=== PATIENT | male | born 1955 | race Caucasian/White ===

== ENCOUNTER 2023-07-01 14:56 | Emergency (ER) | payer OTHER, SELFPAY ==
[2023-07-01] VITALS (12 sets, daily range): BP systolic 139–167; BP diastolic 77–101; PULSE 88–100; RESP 17–18; TEMP 37.6; O2SAT 93–98
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
== END 2023-07-01 16:14 | disposition home or self-care (01) ==
PROVIDERS: Emergency Provider Emergency Medicine
DX: Z04.1 Encounter for examination and observation following transport accident (principal); I11.0 Hypertensive heart disease with heart failure; I50.9 Heart failure, unspecified; Z79.01 Long term (current) use of anticoagulants; I48.91 Unspecified atrial fibrillation; V43.52XA Car driver injured in collision with other type car in traffic accident, initial encounter; Y92.410 Unspecified street and highway as the place of occurrence of the external cause
CPT/HCPCS: 99282

== ENCOUNTER 2023-07-26 13:37 | Outpatient (CLI) | payer MEDICARE, SELFPAY ==
[2023-07-26 14:18] LABS: SARS-CoV-2 Ag Positive (Negative)
== END 2023-07-26 13:38 | disposition home or self-care (01) ==
LOC: CHSLAB 13:42
PROVIDERS: PCP Family Medicine
DX: U07.1 COVID-19 (principal)
CPT/HCPCS: 87426; C9803

== ENCOUNTER 2024-10-21 22:45 | Emergency (ER) | payer MEDICARE, SELFPAY ==
--- NOTE | ~2024-10-21 | CT_ITS ---
CT Scan of the Chest without Contrast: Clinical Indication: Status post fall Technique: Contiguous sections were acquired throughout the chest without intravenous contrast. Dose reduction technique was used on this scan by utilizing automated exposure control and iterative recon struction technique. The dose-length product (DLP) was 570.19 mGy-cm. Findings: There is no evidence of any significant mediastinal, hilar or axillary lymphadenopathy. Extensive cor onary artery calcifications are present. Heart is mildly enlarged. There is no evidence of pleural or pericardial effusion. There is probable left lower lobe atelectasis, less likely pneumonia. There is mild atelectasis at th e lingula and inferior right middle lobe. There is linear scarring at the right lung base. No suspici ous pulmonary nodule evident. Images through the upper abdomen reveal no abnormalities. No acute fracture seen. Chronic bilateral r ib fracture deformities are noted. Questionable scattered small lytic foci within the osseous structu res. Impression: No acute posttraumatic abnormality seen. Probable bibasilar atelectasis, as detailed above. Correlate for pneumonia at the left lower lobe, wh ich is felt to be less likely. Questionable small lytic foci in the osseous structures. Correlate for myeloma or metastatic disease versus normal variation in bone mineralization/osteoporotic change. Reviewed, dictated and finalized at location M. TIC CNC MACHINE OPERATOR Impression: No acute posttraumatic abnormality seen. Probable bibasilar atelectasis, as detailed above. Correlate for pneumonia at t he left lower lobe, which is felt to be less likely. Questionable small lytic foci in the osseous structures. Correlate for myeloma or metastatic disease versus normal variation in bone mineralization/osteoporot ic change.
--- NOTE | ~2024-10-21 | CT_ITS ---
Non-contrast Head CT History: Head injury Technique: Axial non-contrast imaging of the brain was performed. Dose reduction technique was used on this scan by utilizing automated exposure control and iterative reconstruction technique. The dose -length product (DLP) was 681.00 mGy-cm. Findings: There is no evidence of intracranial hemorrhage, mass lesion, or acute infarct. Brain par enchyma appears normal. The ventricles and subarachnoid spaces are normal in size. The calvarium ap pears normal. Right maxillary sinus disease present. The remaining visualized paranasal sinuses and m astoid air cells are clear. Impression: No intracranial abnormality seen. Reviewed, dictated and finalized at location M. MENT SETTER Impression: No intracranial abnormality seen.
--- NOTE | ~2024-10-21 | CT_ITS ---
Noncontrast CT scan of the cervical spine Technique: Multiple contiguous axial [address] images of the cervical spine were obtained and rec onstructed in 2D sagittal and coronal planes on the acquisition scanner. Dose reduction technique was used on this scan by utilizing automated exposure control, adjustment of the mA and/or kV according to patient size. The dose-length product (DLP) was 596.26 mGy-cm. Clinical History: Pain Findings: No fracture or subluxation seen in the cervical spine. Probable mild chronic compression de formity of T4 noted. There are mild degenerative disc changes throughout the cervical spine. Probable mild bilateral neural foraminal narrowing at C3-C4 with central disc bulge. There is right neural fo raminal narrowing at C4-C5 with probable right facet arthropathy. The intervertebral disc spaces are preserved. No prevertebral soft tissue swelling. Impression: No fracture or subluxation of the cervical spine. Degenerative change, as above. Probable chronic mild compression deformity of T4. Reviewed, dictated and finalized at [facility]. PRESS OPERATOR Impression: No fracture or subluxation of the cervical spine. Degenerative change, as above. Probable chronic mild compression deformity of T4.
[2024-10-21 22:45] VITALS: BP 125/94; PULSE 94; RESP 16; TEMP 36.8; O2SAT 98
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
--- NOTE | 2024-10-21 23:12 | PC.NURSE ---
PATIENT BEING TRANSPORTED TO RADIOLOGY VIA WHEEL CHAIR
[2024-10-21] MEDS: HYDROcodone/acetaminophen (*CRX) 10-325 MG TABLET 1 TAB PO (23:30)
--- NOTE | 2024-10-21 23:32 | PC.NURSE ---
RETURNED TO ROOM. MEDICATED FOR PAIN. WARM BLANKETS GIVEN. CALL LIGHT IN REACH
[2024-10-22 00:26] VITALS: BP 135/65; PULSE 78; RESP 18; O2SAT 94
== END 2024-10-22 00:30 | disposition home or self-care (01) ==
PROVIDERS: Emergency Provider Emergency Medicine; PCP Family Medicine
DX: S20.219A Contusion of unspecified front wall of thorax, initial encounter (principal); M89.58 Osteolysis, other site; S09.90XA Unspecified injury of head, initial encounter; W01.0XXA Fall on same level from slipping, tripping and stumbling without subsequent striking against object, initial encounter
CPT/HCPCS: 70450; 71250; 72125; 99284; A9270

== ENCOUNTER 2024-10-23 15:24 | Inpatient (IN) | payer MEDICARE, SELFPAY ==
[2024-10-23] VITALS (8 sets, daily range): BP systolic 142–161; BP diastolic 89–96; PULSE 86–103; RESP 18–31; TEMP 36.6; O2SAT 94–97; BMI 25.7
--- NOTE | ~2024-10-23 | CT_ITS ---
CTA chest PE protocol Ordering provider: Rupesh Forrester MD History: 69 years Male with . elev dimer/sob . Comparison: October 21, 2024 Technique: CT angiogram chest was performed following timed intravenous injection of contrast. Thin s lice axial images and reformatted coronal images were obtained. Three dimensional reformatted images of the chest were also obtained using a [employer] workstation. . Automated exposure control and iterati ve reconstruction technique were employed. The dose-length product was 425.71 mGy-cm.. 100 ML Omnipa que 350 was given IV. Findings: PULMONARY ARTERIES: No pulmonary embolus. VISUALIZED THORACIC INLET: Normal. MEDIASTINUM: Aorta/coronary arteries: Mild atheromatous disease. Ascending aorta measures 4.7 cm. Heart/other: The heart is slightly enlarged. Lymph nodes: . Paratracheal lymph nodes are seen with the largest measures 1.5 cm. Avascular small ly mph nodes are also noted. LUNGS: Left basilar atelectasis versus pneumonia with minimal effusion. No pulmonary nodules or masses. . No pneumothorax. VISUALIZED UPPER ABDOMEN: the visualized upper abdomen is normal. MUSCULOSKELETAL: Soft tissues: The superficial soft tissues are normal. Bones: Age appropriate degenerative changes of the spine. Healing fracture is seen in the right 6th , 7th, 8th, ninth, and 10th ribs. Kyphosis. Nonunited segments of the body of the sternum . The fracture is marked excluded. IMPRESSION: 1. No pulmonary embolism. 2. Left basilar atelectasis versus pneumonia. 3. Ascending aorta measures 4.7 cm. Follow-up advised. 4. Minimal left pleural effusion. 5. Cardiomegaly. Reviewed, dictated and finalized at location A. KER POLISHING
--- NOTE | ~2024-10-23 | XR_ITS ---
XR chest 1V portable Ordering provider: Rupesh Forrester MD History: 69 years Male with . Fall X 3 days, RT low rib pain, brown phlegm, diff breathin . Comparison: None. FINDINGS: MEDIASTINUM: The cardiac silhouette is moderately enlarged. Congestive cici. LUNGS: No effusions or pneumothorax. Opacification in the left lower lobe suggestive of atelectasis v ersus pneumonia. OTHER: No free air under the diaphragm. Multiple healing fractures in the right mid thorax ribs. IMPRESSION: Left lower lobe atelectasis versus pneumonia. Multiple rib fractures in the right mid thorax. Reviewed, dictated and finalized at location A. TING INSTRUCTOR
--- NOTE | 2024-10-23 15:35 | ED_ITS ---
HPI - Weakness General Chief complaint: Weakness Stated complaint: short of breath and fall Time Seen by Provider: 10/23/24 15:35 Source: patient Mode of arrival: ambulatory Limitations: no limitations History of Present Illness HPI Narrative: Patient is a 69-year-old male with known alcoholism here for shortness of breath and and a recent fall with right rib pain. I saw this patient a few nights ago after the fall and we did x-ray series that was negative. He said he is coughing up some brown discolored phlegm. patient claims 3 days of no alcohol intake. MD Complaint: generalized weakness ( And specifically shortness of breath) Onset (ago): day(s) (3) Duration: constant Location: generalized Migration: none Severity: moderate Severity scale (1-10): 5 Quality: sharp ( right ribs) Relieving factors: none Exacerbating factors: none Context: other ( Patient has constant tremors as a baseline per his history) Associated symptoms: loss of appetite and shortness of breath Related Data Home Medications Medication Instructions Recorded Confirmed atorvastatin 80 mg tablet 80 mg PO DAILY 07/01/23 07/01/23 duloxetine 30 mg capsule,delayed 30 mg PO DAILY 07/01/23 07/01/23 release ezetimibe 10 mg tablet 10 mg PO DAILY 07/01/23 07/01/23 fenofibric acid (choline) 45 mg 45 mg PO DAILY 07/01/23 07/01/23 capsule,delayed release furosemide 20 mg tablet 20 mg PO DAILY 07/01/23 07/01/23 nifedipine 30 mg tablet,extended 30 mg PO DAILY 07/01/23 07/01/23 release 24 hr torsemide 10 mg tablet 10 mg PO DAILY 07/01/23 07/01/23 Allergies Allergy/AdvReac Type Severity Reaction Status Date / Time magnesium Allergy Anaphylactic Verified 10/23/24 15:56 Shock Review of Systems Review of Systems: All systems reviewed & are unremarkable except as noted in HPI and below Constitutional: Constitutional: Reports no additional constitutional complaints Eyes: Eyes: Reports no additional eye complaints ENT: Reports system reviewed and no additional complaints, except as documented Cardiovascular: Cardiovascular: Reports no additional cardiovascular complaints Respiratory: Respiratory: Reports no additional respiratory complaints Gastrointestinal: Gastrointestinal: Reports no additional gastrointestinal complaints Genitourinary: Genitourinary: Reports no additional male genitourinary complaints Musculoskeletal: Musculoskeletal: Reports no additional musculoskeletal complaints Integumentary/Breasts: Skin/Breast: Reports system reviewed and no additional complaints, except as docu Neurologic: Reports system reviewed and no additional complaints, except as documented Psychiatric: Psychiatric: Reports no additional psychiatric complaints Endocrine: Endocrine: Reports no additional endocrine complaints Hematologic/Lymphatic: Hematologic/Lymphatic: Reports no additional hematologic/lymphatic complaints Allergic/Immunologic: Allergic/Immunologic: Reports no additional allergic/immunologic complaints Exam Const: General: healthy appearing Nutritional Appearance: well nourished Orientation/consciousness: patient oriented x3 HENMT: Head: normal to inspection Ears: external ears normal Face/Nose/Sinus: Normal external nose present Eyes: Conjunctivae: conjunctivae normal Pupils: Equal, round and reactive pupils present EOM: EOMs intact bilaterally Neck: Neck: normal visual inspection Chest: Chest palpation & inspection: normal inspection of the chest Resp: Effort & Inspection: normal respiratory effort and not labored Auscultation: clear to auscultation bilaterally and no crackles Cardio: Rate: regular rate Rhythm: regular rhythm Heart sounds: no murmurs GI: Inspection: non-distended GI Palp: Yes Soft to palpation and No Tenderness to palpation present (GI) Auscultation: normal bowel sounds : General: Yes bladder normal to palpation Back/Spine/Pelvis: Back: no CVA tenderness Skin: General skin exam: normal color Rashes: no rashes Wounds: no wounds Neuro: General: patient oriented x3 Cranial nerves: Yes Nystagmus not pre sent Speech: normal speech Gait exam (Neuro): Normal gait present Extrem: General: normal to inspection Psych: Mental Status: mental status grossly normal Affect: normal affect Attitude: cooperative Course Vital Signs Vital signs: Vital Signs Temperature 36.6 C 10/23/24 15:24 Pulse Rate 88 10/23/24 15:24 Respiratory Rate 18 10/23/24 15:24 Blood Pressure 161/96 H 10/23/24 15:24 Pulse Oximetry 97 10/23/24 15:24 Oxygen Delivery Room Air 10/23/24 15:24 Temperature 36.6 C 10/23/24 15:24 Pulse Rate 97 10/23/24 17:30 Respiratory Rate 31 H 10/23/24 17:30 Blood Pressure 148/90 H 10/23/24 17:30 Pulse Oximetry 95 10/23/24 17:30 Oxygen Delivery Room Air 10/23/24 15:25 MDM - Weakness MDM Narrative Medical decision making narrative: patient is a 69-year-old male with shortness of breath. We will do a respiratory workup at this time. He is having generalized malaise and weakness over the past 3 days. patient has history of AFib not on anticoagulation. last alcoholic beverage was 3 days ago. Lab Data Attestation: I reviewed the patient's lab results. 10/23/24 16:09 10/23/24 16:09 Labs: Lab Results 10/23/24 10/23/24 10/23/24 Range/Units 16:09 16:10 19:26 WBC 5.8 (4.8-10.8) K/mm3 RBC 4.05 L (4.70-6.10) M/mm3 Hgb 14.0 (12.4-15.3) g/dL Hct 41.3 (37.0-46.0) % MCV 102.0 (78.0-102.0) fL MCH 34.6 H (27.0-31.0) pg MCHC 33.9 (32-36) g/dL RDW 12.5 (11.6-14.4) % Plt Count 182 (150-420) K/mm3 MPV 9.4 (8.7-11.0) fl Immature Gran % (Auto) 0.5 H (0.0-0.0) % Neut % (Auto) 76.5 H (50.0-70.0) % Lymph % (Auto) 14.1 L (18.0-42.0) % [place] % (Auto) 7.5 (2.0-11.0) % Eos % (Auto) 1.2 (1.0-6.0) % Baso % (Auto) 0.2 (0.0-1.0) % Lymph # (Auto) 0.81 L (1.10-4.50) K/mm3 [place] # (Auto) 0.43 (0.10-0.90) K/mm3 Eos # (Auto) 0.07 (0.02-0.50) K/mm3 Baso # (Auto) 0.01 (0.00-0.10) K/mm3 Abs Immat Gran (auto) 0.03 H (0.00-0.00) K/mm3 Absolute Neuts (auto) 4.40 (1.70-7.20) K/mm3 Absolute Nucleated RBC 0.00 (0.00-0.00) K/mm3 Nucleated RBC % 0.0 (0-0.0) % D-Dimer 0.95 H* (0.19-0.50) mg/L Sodium 139 (136-145) mmol/L Potassium 5.1 (3.5-5.1) mmol/L Chloride 104 (98-108) mmol/L Carbon Dioxide 27 (21-32) mmol/L Anion Gap 8 (4-12) mmol/L BUN 34 H (7-18) mg/dL Creatinine 1.95 H (0.70-1.30) mg/dL Estim Creat Clear Calc 34 ml/min Estimated GFR 34 L (59 - ) Glucose 114 H (70-99) mg/dL Calculated Osmolality 296 H (285-295) mOsm/kg Lactic Acid 2.4 H Pending (0.4-2.0) mmol/L Calcium 9.4 (8.5-10.1) mg/dL Total Bilirubin 1.0 (0.00-1.00) mg/dL AST 23 (15-37) U/L ALT 17 (16-63) U/L Alkaline Phosphatase 58 (46-116) U/L Troponin I 39.5 (0.00-60.4) ng/L Total Protein 7.5 (6.4-8.2) g/dL Albumin 3.1 L (3.4-5.0) g/dL Urine Color (Yellow) Urine Appearance (Clear) Urine pH (5.0-8.0) Ur Specific [place] (1.010-1.020) Urine Protein (Negative) Urine Glucose (UA) (Negative) Urine Ketones (Negative) Ur Blood (Man) (Negative) Urine Nitrate (Negative) Urine Bilirubin (Negative) Urine Urobilinogen (0.2-1.0) mg/dL Leukocyte Esterase Rfl (Negative) THANH/UL Urine RBC (0-2) /hpf Urine WBC (0-3) /hpf Urine Bacteria (None) /hpf 10/23/24 Range/Units 19:29 WBC (4.8-10.8) K/mm3 RBC (4.70-6.10) M/mm3 Hgb (12.4-15.3) g/dL Hct (37.0-46.0) % MCV (78.0-102.0) fL MCH (27.0-31.0) pg MCHC (32-36) g/dL RDW (11.6-14.4) % Plt Count (150-420) K/mm3 MPV (8.7-11.0) fl Immature Gran % (Auto) (0.0-0.0) % Neut % (Auto) (50.0-70.0) % Lymph % (Auto) (18.0-42.0) % [place] % (Auto) (2.0-11.0) % Eos % (Auto) (1.0-6.0) % Baso % (Auto) (0.0-1.0) % Lymph # (Auto) (1.10-4.50) K/mm3 [place] # (Auto) (0.10-0.90) K/mm3 Eos # (Auto) (0.02-0.50) K/mm3 Baso # (Auto) (0.00-0.10) K/mm3 Abs Immat Gran (auto) (0.00-0.00) K/mm3 Absolute Neuts (auto) (1.70-7.20) K/mm3 Absolute Nucleated RBC (0.00-0.00) K/mm3 Nucleated RBC % (0-0.0) % D-Dimer (0.19-0.50) mg/L Sodium (136-145) mmol/L Potassium (3.5-5.1) mmol/L Chloride (98-108) mmol/L Carbon Dioxide (21-32) mmol/L Anion Gap (4-12) mmol/L BUN (7-18) mg/dL Creatinine (0.70-1.30) mg/dL Estim Creat Clear Calc ml/min Estimated GFR (59 - ) Glucose (70-99) mg/dL Calculated Osmolality (285-295) mOsm/kg Lactic Acid (0.4-2.0) mmol/L Calcium (8.5-10.1) mg/dL Total Bilirubin (0.00-1.00) mg/dL AST (15-37) U/L ALT (16-63) U/L Alkaline Phosphatase (46-116) U/L Troponin I (0.00-60.4) ng/L Total Protein (6.4-8.2) g/dL Albumin (3.4-5.0) g/dL Urine Color Yellow (Yellow) Urine Appearance Clear (Clear) Urine pH 6.5 (5.0-8.0) Ur Specific [place] 1.010 (1.010-1.020) Urine Protein 3+ H (Negative) Urine Glucose (UA) Negative (Negative) Urine Ketones Negative (Negative) Ur Blood (Man) 1+ H (Negative) Urine Nitrate Negative (Negative) Urine Bilirubin Negative (Negative) Urine Urobilinogen 0.2 (0.2-1.0) mg/dL Leukocyte Esterase Rfl Negative (Negative) THANH/UL Urine RBC 0-2 (0-2) /hpf Urine WBC 0-3 (0-3) /hpf Urine Bacteria Trace (None) /hpf Imaging Data Attestation: I personally reviewed and interpreted this imaging study as fo llows: Radiologist's impression: Chest x-ray shows IMPRESSION: Left lower lobe atelectasis versus pneumonia. Multiple rib fractures in the right mid thorax. CTA of the chest shows IMPRESSION: 1. No pulmonary embolism. 2. Left basilar atelectasis versus pneumonia. 3. Ascending aorta measures 4.7 cm. Follow-up advised. 4. Minimal left pleural effusion. 5. Cardiomegaly. ECG Data EKG #1: Attestation: I personally reviewed and interpreted this ECG as follows: ECG completion date: 10/23/24 ECG completion time: 17:25 EKG Interpretation: normal rate, tachycardia, atrial fibrillation ( Known AFib), no ectopy, non-specific ST changes, normal QRS, normal QT and left axis Discharge Plan Discharge Clinical Impression: Pneumonia, Closed rib fracture, A-fib, Alcoholism, JULIO CESAR (acute kidney injury), Dehydration Patient Disposition: Acute Care Hospital Condition: Stable Prescriptions: No Action nifedipine 30 mg tablet extended release 24hr 30 mg PO DAILY atorvastatin 80 mg tablet 80 mg PO DAILY torsemide 10 mg tablet 10 mg PO DAILY furosemide 20 mg tablet 20 mg PO DAILY ezetimibe 10 mg tablet 10 mg PO DAILY duloxetine 30 mg capsule,delayed release(DR/EC) 30 mg PO DAILY fenofibric acid (choline) 45 mg capsule,delayed release(DR/EC) 45 mg PO DAILY hydrocodone-acetaminophen 10-325 mg tablet 1 tablet PO Q8H PRN (Reason: pain) Qty: 20 0RF Rx Instructions: 1/2-1 tab per dose Follow-up/Referrals: Mireille,Anne Campos MD [Primary Care Provider] - Time of Disposition: 19:42
--- NOTE | 2024-10-23 15:52 | ECG_ITS ---
Test Date: 2024-10-23 16:15:15 Measurements Intervals [place] Rate: 102 P: 0 PA: 0 QRS: -42 QRSD: 97 T: 6 QT: 358 QTc: 466 Interpretive Statements ATRIAL FIBRILLATION WITH RAPID VENTRICULAR RESPONSE VOLTAGE CRITERIA FOR LVH [MEETS CRITERIA IN ONE OF: R(aVL), S(V1), R(V5), R(V5/V6)+S(V1)] INFERIOR MYOCARDIAL INFARCTION , PROBABLY OLD [40+ ms Q WAVE AND/OR ST/T ABNORMALITY IN II/aVF] ANTEROSEPTAL MYOCARDIAL INFARCTION , PROBABLY OLD [40+ ms Q WAVE IN V1-V4] ABNORMAL ECG No previous ECG available for comparison Electronically Signed On 10-24-2024 11:03:29 PROGRAM EVALUATION CONSULTANT by Zeus Pedersen M.D.
[2024-10-23 16:13] LABS: Basophils Absolute Auto 0.01 K/mm3 (0.00-0.10); Basophils Percent Auto 0.2 % (0.0-1.0); Eosinophils Absolute Auto 0.07 K/mm3 (0.02-0.50); Eosinophils Percent Auto 1.2 % (1.0-6.0); Hematocrit 41.3 % (37.0-46.0); Immature Granulocyte Absolute 0.03 K/mm3 (0.00-0.00); Immature Granulocyte Percent A 0.5 % (0.0-0.0); Lymphocytes Absolute Auto 0.81 K/mm3 (1.10-4.50); Lymphocytes Percent Auto 14.1 % (18.0-42.0); Mean Corpuscular HGB Conc 33.9 g/dL (32-36); Mean Corpuscular Hemoglobin 34.6 pg (27.0-31.0); Mean Platelet Volume 9.4 fl (8.7-11.0); Monocytes Absolute Auto 0.43 K/mm3 (0.10-0.90); Monocytes Percent Auto 7.5 % (2.0-11.0); Neutrophils Percent Auto 76.5 % (50.0-70.0); Platelet Count Result 182 K/mm3 (150-420); Red Blood Count 4.05 M/mm3 (4.70-6.10); Red Cell Distribution Width 12.5 % (11.6-14.4); White Blood Count 5.8 K/mm3 (4.8-10.8)
[2024-10-23 16:29] LABS: D Dimer 0.95 mg/L (0.19-0.50)
[2024-10-23 16:33] LABS: Alanine Aminotransferase 17 U/L (16-63); Albumin Level 3.1 g/dL (3.4-5.0); Alkaline Phosphatase 58 U/L (46-116); Anion Gap 8 mmol/L (4-12); Aspartate Amino Transferase 23 U/L (15-37); Blood Urea Nitrogen 34 mg/dL (7-18); Calcium 9.4 mg/dL (8.5-10.1); Carbon Dioxide 27 mmol/L (21-32); Chloride 104 mmol/L (98-108); Estimated CRCL calculation 34 ml/min; Estimated Glomerular Filt Rate 34; Glucose 114 mg/dL (70-99); Lactic Acid Reflex 2.4 mmol/L (0.4-2.0); Osmolality Calculated 296 mOsm/kg (285-295); Potassium 5.1 mmol/L (3.5-5.1); Sodium 139 mmol/L (136-145); Total Protein 7.5 g/dL (6.4-8.2); Troponin I 39.5 ng/L (0.00-60.4)
--- NOTE | 2024-10-23 17:03 | PC.NURSE ---
PT IS IN CT AT THIS TIME. WILL CONTINUE TO MONITOR.
[2024-10-23] MEDS: SODIUM CHLORIDE 0.9% IV 1,000 ML 999 ML IV CONT (17:13)
[2024-10-23] MEDS: levoFLOXacin 750 MG/D5W 150 ML 750 MG/150 ML BAG 100 MG IVPB (17:14)
--- NOTE | 2024-10-23 17:35 | PC.NURSE ---
pt is lying on stretcher, lights are off. pt denies any needs or complaints. pt is waiting for results at this time. will continue to monitor. nad noted.
[2024-10-23 19:12] LABS: Reflex Lactic Acid Yes or No Add Lactic
[2024-10-23 19:32] LABS: Add Urine Microscopic? YES; Appearance Urine Clear (Clear); Bilirubin Urine Negative (Negative); Blood Urine 1+ (Negative); Color Urine Yellow (Yellow); Glucose Urine UA Negative (Negative); Ketones Urine Negative (Negative); Leukocyte Esterase Ur Negative LEU/UL (Negative); Nitrate Urine Negative (Negative); Protein Urine 3+ (Negative); Urobilinogen Urine 0.2 mg/dL (0.2-1.0); pH Urine 6.5 (5.0-8.0)
[2024-10-23 19:36] LABS: Bacteria Urine Trace /hpf; RBC Urine 0-2 /hpf (0-2); WBC Urine 0-3 /hpf (0-3)
[2024-10-23 19:51] LABS: Lactic Acid 1.1 mmol/L (0.4-2.0)
[2024-10-23] MEDS: MORPHINE SULFATE (*CRX) 4 MG/ML INJ IV PUSH (20:24)
--- NOTE | 2024-10-23 20:55 | PC.NURSE ---
ERP aware of Pt's vital signs. No new orders.
[2024-10-23] MEDS: SODIUM CHLORIDE 0.9% IV 1,000 ML 100 ML IV CONT (21:34)
--- NOTE | 2024-10-23 21:44 | ADMGEN ---
This patient, Claudio Devries, was admitted to 2nd Floor Room 226-2. Patient oriented to hospital policies and general routines including ID bracelet, bed and alarms, visiting hours, pain management, procedures, bathroom and other care routines, personal items, smoking policy, room service/diet, and visiting hours. Information on how to activate the Rapid Response Team has been discussed. Patient encouraged to report perceived risks to care and to ask questions if they do not understand what they are told or what they should do.
[2024-10-23] MEDS: HYDROcodone/acetaminophen (*CRX) 5-325 MG TABLET 1 TAB PO (22:03)
[2024-10-24] VITALS (9 sets, daily range): BP systolic 140–163; BP diastolic 82–90; PULSE 89–124; RESP 16–20; TEMP 36.2–36.7; O2SAT 89–95
[2024-10-24] MEDS: HYDROcodone/acetaminophen (*CRX) 5-325 MG TABLET 1 TAB PO (03:21)
[2024-10-24 05:37] LABS: Basophils Absolute Auto 0.01 K/mm3 (0.00-0.10); Basophils Percent Auto 0.2 % (0.0-1.0); Eosinophils Absolute Auto 0.12 K/mm3 (0.02-0.50); Eosinophils Percent Auto 2.3 % (1.0-6.0); Hemoglobin 12.5 g/dL (12.4-15.3); Immature Granulocyte Absolute 0.02 K/mm3 (0.00-0.00); Immature Granulocyte Percent A 0.4 % (0.0-0.0); Lymphocytes Absolute Auto 1.06 K/mm3 (1.10-4.50); Lymphocytes Percent Auto 19.9 % (18.0-42.0); Mean Corpuscular HGB Conc 32.9 g/dL (32-36); Mean Corpuscular Hemoglobin 33.6 pg (27.0-31.0); Mean Corpuscular Volume 102.2 fL (78.0-102.0); Monocytes Absolute Auto 0.53 K/mm3 (0.10-0.90); Neutrophils Absolute Auto 3.58 K/mm3 (1.70-7.20); Neutrophils Percent Auto 67.2 % (50.0-70.0); Platelet Count Result 169 K/mm3 (150-420); Red Blood Count 3.72 M/mm3 (4.70-6.10); Red Cell Distribution Width 12.5 % (11.6-14.4); White Blood Count 5.3 K/mm3 (4.8-10.8)
[2024-10-24 06:01] LABS: Alanine Aminotransferase 17 U/L (16-63); Albumin Level 2.6 g/dL (3.4-5.0); Alkaline Phosphatase 55 U/L (46-116); Anion Gap 12 mmol/L (4-12); Aspartate Amino Transferase 22 U/L (15-37); Bilirubin,Total 0.8 mg/dL (0.00-1.00); Blood Urea Nitrogen 26 mg/dL (7-18); Calcium 8.6 mg/dL (8.5-10.1); Carbon Dioxide 22 mmol/L (21-32); Chloride 106 mmol/L (98-108); Estimated CRCL calculation 40 ml/min; Estimated Glomerular Filt Rate 42; Glucose 101 mg/dL (70-99); Osmolality Calculated 294 mOsm/kg (285-295); Potassium 4.2 mmol/L (3.5-5.1); Sodium 140 mmol/L (136-145); Total Protein 6.6 g/dL (6.4-8.2)
[2024-10-24 06:11] LABS: Lactic Acid Reflex 1.1 mmol/L (0.4-2.0)
[2024-10-24] MEDS: ONDANSETRON INJ 4 MG/2 ML VIAL IV PUSH (06:33)
[2024-10-24] MEDS: SODIUM CHLORIDE 0.9% IV 1,000 ML 100 ML IV CONT (07:33)
[2024-10-24] MEDS: NIFEdipine 30 MG TAB.ER.24 PO (09:07)
[2024-10-24] MEDS: DULoxetine HCL 30 MG CAPSULE.DR PO (09:07)
[2024-10-24] MEDS: EZETIMIBE 10 MG TABLET PO (09:07)
[2024-10-24] MEDS: ENOXAPARIN 40 MG/0.4 ML SYRINGE SUB-Q (09:08)
[2024-10-24] MEDS: ATORVASTATIN 40 MG TABLET 80 MG PO (09:08)
[2024-10-24 09:45] LABS: Magnesium 1.2 mg/dL (1.8-2.4)
[2024-10-24] MEDS: THIAMINE HCL 100 MG TABLET PO (10:13)
[2024-10-24] MEDS: METOPROLOL TARTRATE 25 MG TABLET PO ×2 (10:13→21:06)
[2024-10-24] MEDS: MULTIVITAMINS THERAPEUTIC TAB (*BKC) 1 TABLET PO (10:13)
[2024-10-24] MEDS: TORSEMIDE 10 MG TABLET PO (10:13)
[2024-10-24] MEDS: chlordiazePOXIDE (*CRX) 25 MG CAPSULE 50 MG PO ×2 (10:13→16:25)
[2024-10-24] MEDS: FOLIC ACID 1 MG TABLET PO (10:13)
[2024-10-24] MEDS: LORazepam INJ (*CRX) 2 MG/ML VIAL IV PUSH (10:14)
[2024-10-24] MEDS: AZITHROMYCIN 500 MG/NS 250 ML 500 MG/250 ML BAG 250 MG IVPB (10:26)
--- NOTE | 2024-10-24 10:30 | PC.NURSE ---
Patient moved to room 206 for better observation. Patient experiencing withdrawal symptoms, confused, disoriented, climbing out of bed.
--- NOTE | 2024-10-24 12:47 | P.HP_ITS ---
H&P: HPI History of Present Illness Date/Time: 10/24/24 12:47 Chief Complaint: SOB/Fall/Generalized weakness Narrative: Patient is a 69-year-old male who presented to the emergency department with complaints of shortness breath, fall at home and generalized weakness. Patient had recently been seen in the emergency department a few days ago for previous fall with rib fractures presents today for secondary fall and complaints worsening shortness of breath. Patient's labs unremarkable and oxygen saturation stable however patient was in AFib with RVR in the 120s initially. Patient did report a past medical history of HLD, [place] with 2 stents, atrial fibrillation,hypertension, and alcoholism. a CTA was done to rule out pulmonary embolism which was negative however did show left basilar atelectasis versus pneumonia, minimal left pleural effusion, cardiomegaly, and a 4.7 cm ascending aorta. patient was admitted to the medical unit for further evaluation and treatment pneumonia and pain control for rib fractures. upon assessment patient had noticeable tremors as well as diaphoresis and was tachycardic in the 120s, speaking with patient and his ex- patient has a history of alcoholism had reported his last drink was 3 days ago however patient is a daily drinker with multiple falls at home per ex- who states she is very concerned for his safety. patient reports he is on Eliquis for his atrial fibrillation did educate him on the concerns for frequent fall and increased risk for GI bleed due to his alcoholism. patient was also becoming more agitated withdrawal protocol was started. patient did have atypical chest pain area broken ribs and difficulty inspiration denied fever, chills, nausea or vomiting. Review of Systems Review of Systems: All systems reviewed & are unremarkable except as noted in HPI and below [facility] Past Medical History Medical History (Updated 10/24/24 @ 13:05 by Maria Del Rosario Yuen APRN) A-fib Alcoholism Ascending aorta dilatation CAD (coronary artery disease) Closed rib fracture Hyperlipidemia Hypertension Myocardial infarction Social History Social History Smoking status: Never smoker Second hand tobacco smoke exposure: No Alcohol intake: current Drinks per week: 2 Substance use: never Substance use type: does not use Do You Feel Safe in your Home?: Yes Lack of Transportation: No Lack of Food: Never True Current Housing: I Have Housing Concerned About Future Housing: No Difficulty Paying Gas/Electric Bills: No Difficulty Paying for Meds: No Currently Unemployed: No Education: High School Diploma/GED Difficulty w/ Childcare or Family Care: No Spiritual care concerns: No Meds Home Medications and Allergies Home Medications Medication Instructions Recorded Confirmed Type atorvastatin 80 mg tablet 80 mg PO DAILY 07/01/23 10/23/24 History duloxetine 30 mg capsule,delayed 30 mg PO DAILY 07/01/23 10/23/24 History release ezetimibe 10 mg tablet 10 mg PO DAILY 07/01/23 10/23/24 History fenofibric acid (choline) 45 mg 45 mg PO DAILY 07/01/23 10/23/24 History capsule,delayed release nifedipine 30 mg tablet,extended 30 mg PO DAILY 07/01/23 10/23/24 History release 24 hr torsemide 10 mg tablet 10 mg PO DAILY 07/01/23 10/23/24 History hydrocodone 10 mg-acetaminophen 1 tablet PO Q8H PRN pain #20 tabs 10/22/24 10/23/24 Rx 325 mg tablet Allergies Allergy/AdvReac Type Severity Reaction Status Date / Time magnesium Allergy Anaphylactic Verified 10/23/24 15:56 Shock Vital Signs Vital Signs - 24 hr 10/23/24 15:24 10/23/24 15:25 10/23/24 16:15 Temperature 97.8 F Pulse Rate 88 92 Pulse Rate [Monitor] Respiratory Rate 18 24 H Blood Pressure 161/96 H 142/90 H Pulse Oximetry 97 96 Oxygen Delivery Room Air Room Air 10/23/24 17:05 10/23/24 17:30 10/23/24 18:45 Temperature Pulse Rate 86 97 98 Pulse Rate [Monitor] Respiratory Rate 22 H 31 H 20 Blood Pressure 150/92 H 148/90 H 144/89 H Pulse Oximetry 95 94 Oxygen Delivery 10/23/24 18:46 10/23/24 20:33 10/23/24 22:05 Temperature Pulse Rate 100 103 H 103 H Pulse Rate [Monitor] Respiratory Rate 20 21 H 20 Blood Pressure Pulse Oximetry 94 94 94 Oxygen Delivery Room Air 10/24/24 00:00 10/24/24 00:00 10/24/24 04:00 Temperature 97.1 F L Pulse Rate 101 H 101 H 102 H Pulse Rate [Monitor] Respiratory Rate 20 Blood Pressure 142/90 H Pulse Oximetry 95 Oxygen Delivery Room Air 10/24/24 04:00 10/24/24 10:13 10/24/24 08:00 Temperature Pulse Rate 102 H 116 H 104 H Pulse Rate [Monitor] Respiratory Rate 18 Blood Pressure Pulse Oximetry 95 Oxygen Delivery Room Air 10/24/24 08:00 10/24/24 09:31 10/24/24 12:00 Temperature 97.1 F L Pulse Rate 104 H Pulse Rate [Monitor] 112 H 95 Respiratory Rate 20 Blood Pressure 163/82 H Pulse Oximetry 92 Oxygen Delivery Room Air Exam Narrative: Physical Exam: * GENERAL: Alert and oriented x 3. Active tremors and diaphoresis * EYES: PERRLA. * HEENT: Dry mucous membranes. * LUNGS: diminished bilateral lower lobe on auscultation pain with inspiration/expiration * CARDIOVASCULAR: irregular irregular >110's HR * ABDOMEN: Soft, non tenderness and non-distended. No palpable masses. * EXTREMITIES: No edema. Non-tender * SKIN: No rashes or lesions. Skin warm, dry. diaphoresis * NEUROLOGIC: No focal neurological deficits. CN II-XII grossly intact * PSYCHIATRIC: agitated mood and affect. poor judgement and insight. No visual or auditory hallucinations. No suicidal or homicidal ideation. H&P: Results Labs Labs: Short CBC 10/23/24 10/24/24 Range/Units 16:09 04:55 WBC 5.8 5.3 (4.8-10.8) K/mm3 Hgb 14.0 12.5 (12.4-15.3) g/dL Hct 41.3 38.0 (37.0-46.0) % Plt Count 182 169 (150-420) K/mm3 [facility] 10/23/24 10/24/24 16:09 04:55 Sodium 139 140 Potassium 5.1 4.2 Chloride 104 106 Carbon Dioxide 27 22 BUN 34 H 26 H Creatinine 1.95 H 1.63 H Glucose 114 H 101 H Calcium 9.4 8.6 Cardiac Enzymes 10/23/24 Range/Units 16:09 Troponin I 39.5 (0.00-60.4) ng/L Liver Function 10/23/24 10/24/24 Range/Units 16:09 04:55 Total Bilirubin 1.0 0.8 (0.00-1.00) mg/dL AST 23 22 (15-37) U/L ALT 17 17 (16-63) U/L Alkaline Phosphatase 58 55 (46-116) U/L Albumin 3.1 L 2.6 L (3.4-5.0) g/dL Urine 10/23/24 Range/Units 19:29 Urine Color Yellow (Yellow) Urine Appearance Clear (Clear) Urine pH 6.5 (5.0-8.0) Ur Specific [place] 1.010 (1.010-1.020) Urine Protein 3+ H (Negative) Urine Glucose (UA) Negative (Negative) Imaging CT scan - chest: Radiologist's impression: Findings: PULMONARY ARTERIES: No pulmonary embolus. VISUALIZED THORACIC INLET: Normal. MEDIASTINUM: Aorta/coronary arteries: Mild atheromatous disease. Ascending aorta measures 4.7 cm. Heart/other: The heart is slightly enlarged. Lymph nodes: . Paratracheal lymph nodes are seen with the largest measures 1.5 cm. Avascular small lymph nodes are also noted. LUNGS: Left basilar atelectasis versus pneumonia with minimal effusion. No pulmonary nodules or masses. . No pneumothorax. VISUALIZED UPPER ABDOMEN: the visualized upper abdomen is normal. MUSCULOSKELETAL: Soft tissues: The superficial soft tissues are normal. Bones: Age appropriate degenerative changes of the spine. Healing fracture is seen in the right 6th , 7th, 8th, ninth, and 10th ribs. Kyphosis. Nonunited segments of the body of the sternum . The fracture is marked excluded. IMPRESSION: 1. No pulmonary embolism. 2. Left basilar atelectasis versus pneumonia. 3. Ascending aorta measures 4.7 cm. Follow-up advised. 4. Minimal left pleural effusion. 5. Cardiomegaly. Assessment and Plan Assessment and plan (1) Alcoholism: Code(s): F10.20 - Alcohol dependence, uncomplicated Status: Acute Assessment and Plan: * IV fluids * Last drink 48hrs patient is not very forthcoming ex- provided information of last drink * Thiamine, folic acid, and multi-vitamin * PPI daily * librium 50mg PO Q6hr * Ativan PRN for seizure activity and severe anxiety * CIWA daily * Monitor and replenish electrolytes as needed * Seizure precautions if indicated * would benefit rehab cc to give services available around the area (2) Pneumonia: Qualifiers: Laterality: left Lung location: lower lobe of lung Pneumonia type: due to unspecified organism Qualified Code(s): J18.9 - Pneumonia, unspecified organism Code(s): J18.9 - Pneumonia, unspecified organism Status: Acute Assessment and Plan: * likely secondary to patient's recent rib fractures * Bronchodilators. * CTA reviewed * incentive spirometry while awake. * influenza/COVID/RSV negative * antibiotic therapy azithromycin Rocephin * supplemental oxygen therapy to maintain oxygen 92% * CMP/CBC daily (3) Closed rib fracture: Qualifiers: Encounter type: initial encounter Laterality: right Rib fracture type: multiple ribs Qualified Code(s): S22.41XA - Multiple fractures of ribs, right side, initial encounter for closed fracture Code(s): S22.39XA - Fracture of one rib, unspecified side, initial encounter for closed fracture Status: Acute Assessment and Plan: * new and old rib fractures bilateral * patient with multiple falls per ex- * fall secondary to patient's alcoholism * incentive spirometer * pain control * PT OT for ambulation * pillow brace for cough (4) CAD (coronary artery disease): Code(s): I25.10 - Atherosclerotic heart disease of [place] coronary artery without angina pectoris Status: Acute Assessment and Plan: * patient with [place] x2 stents * resume statin * metoprolol 12.5 added * resumed Eliquis * cardiac monitoring (5) Hyperlipidemia: Code(s): E78.5 - Hyperlipidemia, unspecified Status: Acute Assessment and Plan: * resume patient's atorvastatin (6) Hypertension: Code(s): I10 - Essential (primary) hypertension Status: Acute Assessment and Plan: * hypertensive POA Likely secondary to alcohol withdrawal dehydration * resume patient's nifedipine * added metoprolol * BP monitoring per unit protocol * will increase metoprolol if needed (7) A-fib: Qualifiers: Atrial fibrillation type: unspecified Qualified Code(s): I48.91 - Unspecified atrial fibrillation Code(s): I48.91 - Unspecified atrial fibrillation Status: Acute Assessment and Plan: * HR in 120'5 * started metoprolol * resume patient's Eliquis * cardiac monitoring * and did have a long conversation regarding patient's Eliquis and frequent falls due to risks versus benefits states 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 PT/OT pending for discharge planning patient will need rehab resources prior to discharge. Quality VTE Prophylaxis VTE prophylaxis: pharmacologic ordered -Patient's previous records reviewed on admission -ER notes reviewed in detail on admission -discussed all findings and current treatment plan with patient/Family/POA -Consultations reviewed for recommendations -Patient's disposition for safe discharge discussed with caser shoe parts Dictation performed by [employer] direct speech recognition software, therefore defence intelligence analyst variants and typographical errors may occur. Hospitalist MIPS Advance Care Plan I have confirmed that the patient's Advanced Care Plan is present, code status is documented, or surrogate decision maker is listed in patient medical record.: Yes Medication Reconciliation I have utilized all available resources to obtain, update and review the patients current medications (includes all prescriptions, OTC, herbals, cannabis, and nutritional supplements).: Yes The patient is not eligible for med reconciliation; the patient is in a emergent medical situation where delaying treatment would jeopardize the patients health.: No
--- NOTE | 2024-10-24 15:19 | PHAR ---
verified pt's home med: Fenofibric Acid 45 mg capsule,delayed release(DR/EC) Take one capsule by mouth every day.
--- NOTE | 2024-10-24 18:41 | PC.NURSE ---
Andres Yuen, DISABILITY COUNSELOR/Hospitalist, notified that patient's Mag level is low. New order received for Mag Roberto. When order placed Magnesium allergy alerted. DISABILITY COUNSELOR notified. New order received for Mag Oxide p.o. BID to start tonight. DISABILITY COUNSELOR also notified that patient has not urinated since this a.m. New order received to bladder scan patient and report findings to DISABILITY COUNSELOR.
[2024-10-24] MEDS: MAGNESIUM OXIDE 400 MG TABLET PO (21:06)
[2024-10-25] VITALS (9 sets, daily range): BP systolic 138–158; BP diastolic 71–92; PULSE 17–107; RESP 16–17; TEMP 36.1–36.7; O2SAT 90–95
[2024-10-25] MEDS: traZODone HCL 50 MG TABLET PO (00:54)
[2024-10-25] MEDS: chlordiazePOXIDE (*CRX) 25 MG CAPSULE 50 MG PO ×4 (04:15→20:05)
[2024-10-25 05:26] LABS: Hematocrit 36.3 % (37.0-46.0); Hemoglobin 11.7 g/dL (12.4-15.3); Mean Corpuscular HGB Conc 32.2 g/dL (32-36); Mean Corpuscular Hemoglobin 33.6 pg (27.0-31.0); Mean Corpuscular Volume 104.3 fL (78.0-102.0); Mean Platelet Volume 9.7 fl (8.7-11.0); Platelet Count Result 150 K/mm3 (150-420); Red Blood Count 3.48 M/mm3 (4.70-6.10); Red Cell Distribution Width 12.7 % (11.6-14.4); White Blood Count 4.8 K/mm3 (4.8-10.8)
[2024-10-25 05:43] LABS: Alanine Aminotransferase 19 U/L (16-63); Albumin Level 2.5 g/dL (3.4-5.0); Alkaline Phosphatase 55 U/L (46-116); Anion Gap 9 mmol/L (4-12); Aspartate Amino Transferase 24 U/L (15-37); Bilirubin,Total 0.4 mg/dL (0.00-1.00); Blood Urea Nitrogen 33 mg/dL (7-18); Calcium 8.5 mg/dL (8.5-10.1); Carbon Dioxide 27 mmol/L (21-32); Chloride 107 mmol/L (98-108); Estimated CRCL calculation 35 ml/min; Estimated Glomerular Filt Rate 36; Glucose 123 mg/dL (70-99); Magnesium 1.5 mg/dL (1.8-2.4); Osmolality Calculated 304 mOsm/kg (285-295); Potassium 4.4 mmol/L (3.5-5.1); Sodium 143 mmol/L (136-145); Total Protein 6.1 g/dL (6.4-8.2)
[2024-10-25] MEDS: [UNRECOGNIZED DRUG - OTHER] PO (10:29)
[2024-10-25] MEDS: ENOXAPARIN 40 MG/0.4 ML SYRINGE SUB-Q (10:29)
[2024-10-25] MEDS: FENOFIBRIC ACID 45 MG PO (10:29)
[2024-10-25] MEDS: MULTIVITAMINS THERAPEUTIC TAB (*BKC) 1 TABLET PO (10:30)
[2024-10-25] MEDS: EZETIMIBE 10 MG TABLET PO (10:30)
[2024-10-25] MEDS: TORSEMIDE 10 MG TABLET PO (10:30)
[2024-10-25] MEDS: FOLIC ACID 1 MG TABLET PO (10:30)
[2024-10-25] MEDS: AZITHROMYCIN 250 MG TABLET 500 MG PO (10:30)
[2024-10-25] MEDS: DULoxetine HCL 30 MG CAPSULE.DR PO (10:30)
[2024-10-25] MEDS: ATORVASTATIN 40 MG TABLET 80 MG PO (10:31)
[2024-10-25] MEDS: METOPROLOL TARTRATE 25 MG TABLET PO ×2 (10:31→20:06)
[2024-10-25] MEDS: NIFEdipine 30 MG TAB.ER.24 PO (10:31)
[2024-10-25] MEDS: PANTOPRAZOLE 40 MG TABLET PO (10:31)
[2024-10-25] MEDS: MAGNESIUM OXIDE 400 MG TABLET PO ×2 (10:31→16:20)
[2024-10-25] MEDS: THIAMINE HCL 100 MG TABLET PO (10:31)
--- NOTE | 2024-10-25 11:17 | P.PNIM_ITS ---
Progress Note: A&P Assessment and Plan (1) Alcoholism: Code(s): F10.20 - Alcohol dependence, uncomplicated Status: Acute Assessment and Plan: * IV fluids * Last drink 48hrs patient is not very forthcoming ex- provided information of last drink * Thiamine, folic acid, and multi-vitamin * PPI daily * librium 50mg PO Q6hr * Ativan PRN for seizure activity and severe anxiety * CIWA daily * Monitor and replenish electrolytes as needed * Seizure precautions if indicated * would benefit rehab cc to give services available around the area (2) Pneumonia: Qualifiers: Laterality: left Lung location: lower lobe of lung Pneumonia type: due to unspecified organism Qualified Code(s): J18.9 - Pneumonia, unspecified organism Code(s): J18.9 - Pneumonia, unspecified organism Status: Acute Assessment and Plan: * likely secondary to patient's recent rib fractures * Bronchodilators. * CTA reviewed * incentive spirometry while awake. * influenza/COVID/RSV negative * antibiotic therapy azithromycin Rocephin * supplemental oxygen therapy to maintain oxygen 92% * CMP/CBC daily (3) Closed rib fracture: Qualifiers: Encounter type: initial encounter Laterality: right Rib fracture type: multiple ribs Qualified Code(s): S22.41XA - Multiple fractures of ribs, right side, initial encounter for closed fracture Code(s): S22.39XA - Fracture of one rib, unspecified side, initial encounter for closed fracture Status: Acute Assessment and Plan: * new and old rib fractures bilateral * patient with multiple falls per ex- * fall secondary to patient's alcoholism * incentive spirometer * pain control * PT OT for ambulation * pillow brace for cough (4) CAD (coronary artery disease): Code(s): I25.10 - Atherosclerotic heart disease of [place] coronary artery without angina pectoris Status: Acute Assessment and Plan: * patient with [place] x2 stents * resume statin * metoprolol 12.5 added * resumed Eliquis * cardiac monitoring (5) Hyperlipidemia: Code(s): E78.5 - Hyperlipidemia, unspecified Status: Acute Assessment and Plan: * resume patient's atorvastatin (6) Hypertension: Code(s): I10 - Essential (primary) hypertension Status: Acute Assessment and Plan: * hypertensive POA Likely secondary to alcohol withdrawal dehydration * resume patient's nifedipine * added metoprolol * BP monitoring per unit protocol * will increase metoprolol if needed (7) A-fib: Qualifiers: Atrial fibrillation type: unspecified Qualified Code(s): I48.91 - Unspecified atrial fibrillation Code(s): I48.91 - Unspecified atrial fibrillation Status: Acute Assessment and Plan: * HR in 120'5 * started metoprolol * resume patient's Eliquis * cardiac monitoring * and did have a long conversation regarding patient's Eliquis and frequent falls and alcoholism due to risks versus benefits he lives alone states he will discuss with his senior sales representative (8) Ascending aorta dilatation: Code(s): I77.810 - Thoracic aortic ectasia Status: Acute Assessment and Plan: * CTA showed 4.7 cm ascending aorta * will need follow-up outpatient * keep BP controlled Plan Code status: Full code per patient DVT prophylaxis: Eliquis Stress ulcer prophylaxis: Protonix 40 daily PT/OT notes: PT/OT pending Disposition: patient was admitted to the medical unit for further evaluation pneumonia, alcohol withdrawal, and rib fractures. PT/OT pending for discharge planning patient will need rehab resources prior to discharge. Time Spent With Patient Time with patient: 15 - 25 minutes Subjective Date/time seen: 10/25/24 11:17 Interval history: Patient is a 69 year old male who was admitted with falls, rib fractures, pneumonia, and alcohol withdrawals. 10/25/2024: Patient continues with noticeable tremors, diaphoresis improving but still unsteady gait. Patient with SOB, rib pain, and non-productive cough. Patient denied any N/V and good appetite. Review of Systems Review of Systems: All systems reviewed & are unremarkable except as noted in HPI and below Exam Narrative: Physical Exam: * GENERAL: Alert and oriented x 3. Active tremors and diaphoresis did have mild hallucinations but was redirectable * EYES: PERRLA. * HEENT: moist mucous membranes. * LUNGS: diminished bilateral lower lobe on auscultation pain with inspiration/expiration * CARDIOVASCULAR: irregular irregular >110's HR, lower chest rib pain * ABDOMEN: Soft, nontender and non-distended. No palpable masses. * EXTREMITIES: No edema. Non-tender, unsteady gait * SKIN: No rashes or lesions. Skin warm, dry. diaphoresis * NEUROLOGIC: No focal neurological deficits. CN II-XII grossly intact * PSYCHIATRIC: appropriate mood and affect. poor judgement and insight. Objective Data Vital Signs Vital Signs: Vital Signs - 24 hr 10/24/24 12:00 10/24/24 12:00 10/24/24 12:00 Temperature 97.1 F L Pulse Rate 124 H 124 H Pulse Rate [Monitor] 95 Respiratory Rate 20 Blood Pressure 148/88 H Pulse Oximetry 93 Oxygen Delivery Room Air 10/24/24 16:00 10/24/24 16:00 10/24/24 16:00 Temperature 97.1 F L Pulse Rate 98 92 Pulse Rate [Monitor] 95 Respiratory Rate 16 Blood Pressure 140/85 Pulse Oximetry 95 Oxygen Delivery Room Air 10/24/24 21:06 10/24/24 20:00 10/24/24 20:00 Temperature Pulse Rate 116 H 89 Pulse Rate [Monitor] 89 Respiratory Rate Blood Pressure Pulse Oximetry Oxygen Delivery 10/24/24 20:00 10/25/24 00:00 10/25/24 00:00 Temperature 98.0 F Pulse Rate 94 92 Pulse Rate [Monitor] 92 Respiratory Rate 16 Blood Pressure 146/86 H Pulse Oximetry 89 L Oxygen Delivery Room Air 10/25/24 00:00 10/25/24 04:00 10/25/24 04:00 Temperature 98.0 F Pulse Rate 92 105 H Pulse Rate [Monitor] 105 H Respiratory Rate 16 Blood Pressure 138/92 H Pulse Oximetry 95 Oxygen Delivery Room Air 10/25/24 04:00 10/25/24 08:00 10/25/24 08:00 Temperature 98.0 F 97.1 F L Pulse Rate 105 H 105 H 94 Pulse Rate [Monitor] Respiratory Rate 16 17 Blood Pressure 140/86 154/86 H Pulse Oximetry 95 90 Oxygen Delivery Room Air Room Air 10/25/24 08:00 10/25/24 10:31 Temperature Pulse Rate 105 H Pulse Rate [Monitor] 105 H Respiratory Rate Blood Pressure Pulse Oximetry Oxygen Delivery Intake/Output Intake/Output: Intake & Output 10/22/24 10/23/24 10/24/24 10/25/24 23:59 23:59 23:59 23:59 Intake Total 1150 3370 300 Output Total 450 Balance 1150 2920 300 Meds/Results Medications: Active Medications Generic Name Dose Route Start Last Admin Trade Name Freq PRN Reason Stop Dose Admin Acetaminophen 650 mg 10/23/24 20:00 Acetaminophen 325 Mg Tablet PO Q4H PRN Mild Pain (1-3) or Fever Hydrocodone Bitart/Acetaminophen 1 tab 10/23/24 20:00 10/24/24 03:21 Hydrocodone/Acetaminophen (*Crx) 5-325 Mg Tablet PO 1 tab Q4H PRN Administration Moderate Pain (4-6) Atorvastatin Calcium 80 mg 10/24/24 09:00 10/25/24 10:31 Atorvastatin 40 Mg Tablet PO 80 mg DAILY REBEKAH Administration Azithromycin 500 mg 10/25/24 09:00 10/25/24 10:30 Azithromycin 250 Mg Tablet PO 10/28/24 09:01 500 mg DAILY REBEKAH Administration Chlordiazepoxide HCl 50 mg 10/24/24 09:35 10/25/24 10:30 Chlordiazepoxide (*Crx) 25 Mg Capsule PO 50 mg Q6H REBEKAH Administration Duloxetine HCl 30 mg 10/24/24 09:00 10/25/24 10:30 Duloxetine Hcl 30 Mg Capsule.Dr PO 30 mg DAILY REBEKAH Administration Ezetimibe 10 mg 10/24/24 09:00 10/25/24 10:30 Ezetimibe 10 Mg Tablet PO 10 mg DAILY REBEKAH Administration Enoxaparin Sodium 40 mg 10/24/24 09:00 10/25/24 10:29 Enoxaparin 40 Mg/0.4 Ml Syringe SUB-Q 40 mg DAILY REBEKAH Administration Folic Acid 1 mg 10/24/24 09:15 10/25/24 10:30 Folic Acid 1 Mg Tablet PO 1 mg DAILY REBEKAH Administration Hydralazine HCl 20 mg 10/24/24 13:07 Hydralazine Hcl 20 Mg/Ml Vial IV PUSH Q6HR PRN Hypertension Ceftriaxone Sodium 1 gm in 50 mls @ 100 mls/hr 10/25/24 09:00 10/25/24 10:29 Rocephin 1 Gm/Ns 50 Ml IVPB 100 mls/hr Q24H REBEKAH Administration Lorazepam 2 mg 10/24/24 11:29 Lorazepam Inj (*Crx) 2 Mg/Ml Vial IV PUSH Q3HR PRN Anxiety Magnesium Oxide 400 mg 10/24/24 21:00 10/25/24 10:31 Magnesium Oxide 400 Mg Tablet PO 400 mg BID REBEKAH Administration Metoprolol Tartrate 25 mg 10/24/24 09:35 10/25/24 10:31 Metoprolol Tartrate 25 Mg Tablet PO 25 mg Q12HR REBEKAH Administration Multivitamins Therapeutic 1 tablet 10/24/24 09:15 10/25/24 10:30 Multivitamins Therapeutic Tab (*Bkc) PO 1 tablet QAM REBEKAH Administration Nifedipine 30 mg 10/24/24 09:00 10/25/24 10:31 Nifedipine 30 Mg Tab.Er.24 PO 30 mg DAILY REBEKAH Administration Nonformulary Drug ( 45 mg 10/25/24 09:00 10/25/24 10:29 Fenofibric Acid 45 PO 11/24/24 08:59 45 mg Mg Capsule,Delayed DAILY REBEKAH Administration Release(Dr/Ec)) Ondansetron HCl 4 mg 10/23/24 20:00 10/24/24 06:33 Ondansetron Inj 4 Mg/2 Ml Vial IV PUSH 4 mg Q6H PRN Administration Nausea And Vomiting Pantoprazole Sodium 40 mg 10/25/24 09:00 10/25/24 10:31 Pantoprazole 40 Mg Tablet PO 40 mg QAM REBEKAH Administration Thiamine HCl 100 mg 10/24/24 09:15 10/25/24 10:31 Thiamine Hcl 100 Mg Tablet PO 100 mg QAM REBEKAH Administration Torsemide 10 mg 10/24/24 09:00 10/25/24 10:30 Torsemide 10 Mg Tablet PO 10 mg DAILY REBEKAH Administration Trazodone HCl 50 mg 10/24/24 22:15 10/25/24 00:54 Trazodone Hcl 50 Mg Tablet PO 50 mg HS PRN Administration Insomnia Radiology Results: ITS Impressions Chest X-Ray 10/23/24 16:06 IMPRESSION: Left lower lobe atelectasis versus pneumonia. Multiple rib fractures in the right mid thorax. Chest CTA 10/23/24 17:25 IMPRESSION: 1. No pulmonary embolism. 2. Left basilar atelectasis versus pneumonia. 3. Ascending aorta measures 4.7 cm. Follow-up advised. 4. Minimal left pleural effusion. 5. Cardiomegaly. Labs Labs: Laboratory Results - last 24 hr 10/25/24 05:03 WBC 4.8 RBC 3.48 L Hgb 11.7 L Hct 36.3 L MCV 104.3 H MCH 33.6 H MCHC 32.2 RDW 12.7 Plt Count 150 MPV 9.7 Sodium 143 Potassium 4.4 Chloride 107 Carbon Dioxide 27 Anion Gap 9 BUN 33 H Creatinine 1.88 H Estim Creat Clear Calc 35 Estimated GFR 36 L Glucose 123 H Calculated Osmolality 304 H Calcium 8.5 Magnesium 1.5 L Total Bilirubin 0.4 AST 24 ALT 19 Alkaline Phosphatase 55 Total Protein 6.1 L Albumin 2.5 L Quality VTE Prophylaxis VTE prophylaxis: pharmacologic ordered -Patient's previous records reviewed on admission -ER notes reviewed in detail on admission -discussed all findings and current treatment plan with patient/Family/POA -Consultations reviewed for recommendations -Patient's disposition for safe discharge discussed with insurance case manager Dictation performed by [employer] direct speech recognition software, therefore jewel hole finish opener variants and typographical errors may occur. Hospitalist [facility] Advance Care Plan I have confirmed that the patient's Advanced Care Plan is present, code status is documented, or surrogate decision maker is listed in patient medical record.: Yes Medication Reconciliation I have utilized all available resources to obtain, update and review the patients current medications (includes all prescriptions, OTC, herbals, cannabis, and nutritional supplements).: Yes The patient is not eligible for med reconciliation; the patient is in a emergent medical situation where delaying treatment would jeopardize the patients health.: No
[2024-10-25] MEDS: APIXABAN 2.5 MG TABLET 5 MG PO (20:05)
[2024-10-25] MEDS: HYDROcodone/acetaminophen (*CRX) 5-325 MG TABLET 1 TAB PO (20:05)
[2024-10-26] VITALS (10 sets, daily range): BP systolic 114–156; BP diastolic 68–89; PULSE 80–100; RESP 16–18; TEMP 35.9–36.7; O2SAT 92–95
[2024-10-26] MEDS: chlordiazePOXIDE (*CRX) 25 MG CAPSULE 50 MG PO ×4 (04:20→20:00)
[2024-10-26 05:28] LABS: Hematocrit 39.3 % (37.0-46.0); Hemoglobin 12.7 g/dL (12.4-15.3); Mean Corpuscular HGB Conc 32.3 g/dL (32-36); Mean Corpuscular Hemoglobin 33.2 pg (27.0-31.0); Mean Corpuscular Volume 102.9 fL (78.0-102.0); Mean Platelet Volume 9.3 fl (8.7-11.0); Platelet Count Result 182 K/mm3 (150-420); Red Blood Count 3.82 M/mm3 (4.70-6.10); Red Cell Distribution Width 12.4 % (11.6-14.4); White Blood Count 6.1 K/mm3 (4.8-10.8)
[2024-10-26 05:48] LABS: Alanine Aminotransferase 26 U/L (16-63); Albumin Level 2.7 g/dL (3.4-5.0); Alkaline Phosphatase 69 U/L (46-116); Anion Gap 10 mmol/L (4-12); Aspartate Amino Transferase 26 U/L (15-37); Bilirubin,Total 0.8 mg/dL (0.00-1.00); Blood Urea Nitrogen 25 mg/dL (7-18); Calcium 8.9 mg/dL (8.5-10.1); Carbon Dioxide 26 mmol/L (21-32); Chloride 104 mmol/L (98-108); Estimated CRCL calculation 37 ml/min; Estimated Glomerular Filt Rate 39; Glucose 114 mg/dL (70-99); Magnesium 1.5 mg/dL (1.8-2.4); Osmolality Calculated 295 mOsm/kg (285-295); Potassium 4.2 mmol/L (3.5-5.1); Sodium 140 mmol/L (136-145); Total Protein 6.5 g/dL (6.4-8.2)
[2024-10-26] MEDS: FENOFIBRIC ACID 45 MG PO (10:17)
[2024-10-26] MEDS: [UNRECOGNIZED DRUG - OTHER] PO (10:17)
[2024-10-26] MEDS: THIAMINE HCL 100 MG TABLET PO (10:18)
[2024-10-26] MEDS: MULTIVITAMINS THERAPEUTIC TAB (*BKC) 1 TABLET PO (10:18)
[2024-10-26] MEDS: METOPROLOL TARTRATE 25 MG TABLET PO ×2 (10:18→19:50)
[2024-10-26] MEDS: NIFEdipine 30 MG TAB.ER.24 PO (10:18)
[2024-10-26] MEDS: FOLIC ACID 1 MG TABLET PO (10:18)
[2024-10-26] MEDS: EZETIMIBE 10 MG TABLET PO (10:18)
[2024-10-26] MEDS: ATORVASTATIN 40 MG TABLET 80 MG PO (10:19)
[2024-10-26] MEDS: PANTOPRAZOLE 40 MG TABLET PO (10:19)
[2024-10-26] MEDS: TORSEMIDE 10 MG TABLET PO (10:19)
[2024-10-26] MEDS: DULoxetine HCL 30 MG CAPSULE.DR PO (10:19)
[2024-10-26] MEDS: MAGNESIUM OXIDE 400 MG TABLET PO ×2 (10:19→16:10)
[2024-10-26] MEDS: AZITHROMYCIN 250 MG TABLET 500 MG PO (10:19)
[2024-10-26] MEDS: APIXABAN 2.5 MG TABLET 5 MG PO ×2 (10:19→20:01)
--- NOTE | 2024-10-26 15:29 | P.PNIM_ITS ---
Progress Note: A&P Assessment and Plan (1) Alcoholism: Code(s): F10.20 - Alcohol dependence, uncomplicated Status: Acute Assessment and Plan: * IV fluids * Last drink 48hrs patient is not very forthcoming ex- provided information of last drink * Thiamine, folic acid, and multi-vitamin * PPI daily * librium 50mg PO Q6hr * Ativan PRN for seizure activity and severe anxiety * CIWA daily * Monitor and replenish electrolytes as needed * Seizure precautions if indicated * would benefit rehab cc to give services available around the area (2) Pneumonia: Qualifiers: Laterality: left Lung location: lower lobe of lung Pneumonia type: due to unspecified organism Qualified Code(s): J18.9 - Pneumonia, unspecified organism Code(s): J18.9 - Pneumonia, unspecified organism Status: Acute Assessment and Plan: * likely secondary to patient's recent rib fractures * Bronchodilators. * CTA reviewed * incentive spirometry while awake. * influenza/COVID/RSV negative * antibiotic therapy azithromycin Rocephin * supplemental oxygen therapy to maintain oxygen 92% * CMP/CBC daily (3) Closed rib fracture: Qualifiers: Encounter type: initial encounter Laterality: right Rib fracture type: multiple ribs Qualified Code(s): S22.41XA - Multiple fractures of ribs, right side, initial encounter for closed fracture Code(s): S22.39XA - Fracture of one rib, unspecified side, initial encounter for closed fracture Status: Acute Assessment and Plan: * new and old rib fractures bilateral * patient with multiple falls per ex- * fall secondary to patient's alcoholism * incentive spirometer * pain control * PT OT for ambulation * pillow brace for cough (4) CAD (coronary artery disease): Code(s): I25.10 - Atherosclerotic heart disease of [place] coronary artery without angina pectoris Status: Acute Assessment and Plan: * patient with LA x2 stents * resume statin * metoprolol 12.5 added * resumed Eliquis * cardiac monitoring (5) Hyperlipidemia: Code(s): E78.5 - Hyperlipidemia, unspecified Status: Acute Assessment and Plan: * resume patient's atorvastatin (6) Hypertension: Code(s): I10 - Essential (primary) hypertension Status: Acute Assessment and Plan: * hypertensive POA Likely secondary to alcohol withdrawal dehydration * resume patient's nifedipine * added metoprolol * BP monitoring per unit protocol * will increase metoprolol if needed (7) A-fib: Qualifiers: Atrial fibrillation type: unspecified Qualified Code(s): I48.91 - Unspecified atrial fibrillation Code(s): I48.91 - Unspecified atrial fibrillation Status: Acute Assessment and Plan: * HR in 120'5 * started metoprolol * resume patient's Eliquis * cardiac monitoring * and did have a long conversation regarding patient's Eliquis and frequent falls and alcoholism due to risks versus benefits he lives alone states he will discuss with his dermatologist managing partner (8) Ascending aorta dilatation: Code(s): I77.810 - Thoracic aortic ectasia Status: Acute Assessment and Plan: * CTA showed 4.7 cm ascending aorta * will need follow-up outpatient * keep BP controlled Plan Code status: Full code per patient DVT prophylaxis: Eliquis Stress ulcer prophylaxis: Protonix 40 daily PT/OT notes: PT/OT pending Disposition: patient was admitted to the medical unit for further evaluation pneumonia, alcohol withdrawal, and rib fractures. PT/OT plan to discharge to swing bed for rehabilitation Time Spent With Patient Time with patient: 15 - 25 minutes Subjective Date/time seen: 10/26/24 15:29 Interval history: Patient is a 69 year old male who was admitted with falls, rib fractures, pneumonia, and alcohol withdrawals. 10/26/2024: Patient tremors improving still with unsteady gait and scant diaphoresis. Patient with SOB but reports improving, rib pain, and non-productive cough. Patient denied any N/V and good appetite. Review of Systems Review of Systems: All systems reviewed & are unremarkable except as noted in HPI and below Exam Narrative: Physical Exam: * GENERAL: Alert and oriented x 3. mild tremors and diaphoresis * EYES: PERRLA. * HEENT: moist mucous membranes. * LUNGS: diminished bilateral lower lobe on auscultation pain with inspiration/expiration * CARDIOVASCULAR: irregular irregular >110's HR, lower chest rib pain * ABDOMEN: Soft, nontender and non-distended. No palpable masses. * EXTREMITIES: No edema. Non-tender, unsteady gait * SKIN: No rashes or lesions. Skin warm, dry. diaphoresis * NEUROLOGIC: No focal neurological deficits. CN II-XII grossly intact * PSYCHIATRIC: appropriate mood and affect. poor judgement and insight. Objective Data Vital Signs Vital Signs: Vital Signs - 24 hr 10/25/24 15:48 10/25/24 16:00 10/25/24 16:00 Temperature 97.1 F L Pulse Rate 97 17 L Pulse Rate [Monitor] 99 Respiratory Rate 17 Blood Pressure 142/83 H Pulse Oximetry 91 Oxygen Delivery Room Air 10/25/24 20:06 10/25/24 20:00 10/25/24 20:00 Temperature Pulse Rate 94 91 Pulse Rate [Monitor] 82 Respiratory Rate Blood Pressure Pulse Oximetry Oxygen Delivery 10/25/24 20:00 10/26/24 00:00 10/26/24 00:00 Temperature 97.7 F Pulse Rate 94 83 Pulse Rate [Monitor] 83 Respiratory Rate 16 Blood Pressure 158/89 H Pulse Oximetry 95 Oxygen Delivery Room Air 10/26/24 00:00 10/26/24 04:00 10/26/24 04:00 Temperature 98.0 F Pulse Rate 94 87 Pulse Rate [Monitor] 87 Respiratory Rate 16 Blood Pressure 150/82 H Pulse Oximetry 95 Oxygen Delivery Room Air 10/26/24 04:00 10/26/24 10:18 10/26/24 08:00 Temperature 98.0 F 98 F Pulse Rate 87 98 90 Pulse Rate [Monitor] Respiratory Rate 16 16 Blood Pressure 156/89 H 114/68 Pulse Oximetry 95 92 Oxygen Delivery Room Air Room Air 10/26/24 08:00 10/26/24 08:00 10/26/24 12:00 Temperature Pulse Rate 99 Pulse Rate [Monitor] 98 94 Respiratory Rate Blood Pressure Pulse Oximetry Oxygen Delivery Intake/Output Intake/Output: Intake & Output 12/0310/24/24 10/25/24 10/26/24 23:59 23:59 23:59 23:59 Intake Total 1150 3370 2400 1130 Output Total 450 Balance 1150 2920 2400 1130 Meds/Results Medications: Active Medications Generic Name Dose Route Start Last Admin Trade Name Freq PRN Reason Stop Dose Admin Acetaminophen 650 mg 10/23/24 20:00 Acetaminophen 325 Mg Tablet PO Q4H PRN Mild Pain (1-3) or Fever Hydrocodone Bitart/Acetaminophen 1 tab 10/23/24 20:00 10/25/24 20:05 Hydrocodone/Acetaminophen (*Crx) 5-325 Mg Tablet PO 1 tab Q4H PRN Administration Moderate Pain (4-6) Apixaban 5 mg 10/25/24 21:00 10/26/24 10:19 Apixaban 2.5 Mg Tablet PO 5 mg Q12HR REBEKAH Administration Atorvastatin Calcium 80 mg 10/24/24 09:00 10/26/24 10:19 Atorvastatin 40 Mg Tablet PO 80 mg DAILY REBEKAH Administration Azithromycin 500 mg 10/25/24 09:00 10/26/24 10:19 Azithromycin 250 Mg Tablet PO 10/28/24 09:01 500 mg DAILY REBEKAH Administration Chlordiazepoxide HCl 50 mg 10/24/24 09:35 10/26/24 10:18 Chlordiazepoxide (*Crx) 25 Mg Capsule PO 50 mg Q6H REBEKAH Administration Duloxetine HCl 30 mg 10/24/24 09:00 10/26/24 10:19 Duloxetine Hcl 30 Mg Capsule.Dr PO 30 mg DAILY REBEKAH Administration Ezetimibe 10 mg 10/24/24 09:00 10/26/24 10:18 Ezetimibe 10 Mg Tablet PO 10 mg DAILY REBEKAH Administration Folic Acid 1 mg 10/24/24 09:15 10/26/24 10:18 Folic Acid 1 Mg Tablet PO 1 mg DAILY REBEKAH Administration Hydralazine HCl 20 mg 10/24/24 13:07 Hydralazine Hcl 20 Mg/Ml Vial IV PUSH Q6HR PRN Hypertension Ceftriaxone Sodium 1 gm in 50 mls @ 100 mls/hr 10/25/24 09:00 10/26/24 10:47 Rocephin 1 Gm/Ns 50 Ml IVPB Infused Q24H REBEKAH Infusion Lorazepam 1 mg 10/25/24 12:27 Lorazepam Inj (*Crx) 2 Mg/Ml Vial IV PUSH Q6H PRN Anxiety Magnesium Oxide 400 mg 10/24/24 21:00 10/26/24 10:19 Magnesium Oxide 400 Mg Tablet PO 400 mg BID REBEKAH Administration Metoprolol Tartrate 25 mg 10/24/24 09:35 10/26/24 10:18 Metoprolol Tartrate 25 Mg Tablet PO 25 mg Q12HR REBEKAH Administration Multivitamins Therapeutic 1 tablet 10/24/24 09:15 10/26/24 10:18 Multivitamins Therapeutic Tab (*Bkc) PO 1 tablet QAM REBEKAH Administration Nifedipine 30 mg 10/24/24 09:00 10/26/24 10:18 Nifedipine 30 Mg Tab.Er.24 PO 30 mg DAILY REBEKAH Administration Nonformulary Drug ( 45 mg 10/25/24 09:00 10/26/24 10:17 Fenofibric Acid 45 PO 11/24/24 08:59 45 mg Mg Capsule,Delayed DAILY REBEKAH Administration Release(Dr/Ec)) Ondansetron HCl 4 mg 10/23/24 20:00 10/24/24 06:33 Ondansetron Inj 4 Mg/2 Ml Vial IV PUSH 4 mg Q6H PRN Administration Nausea And Vomiting Pantoprazole Sodium 40 mg 10/25/24 09:00 10/26/24 10:19 Pantoprazole 40 Mg Tablet PO 40 mg QAM REBEKAH Administration Thiamine HCl 100 mg 10/24/24 09:15 10/26/24 10:18 Thiamine Hcl 100 Mg Tablet PO 100 mg QAM REBEKAH Administration Torsemide 10 mg 10/24/24 09:00 10/26/24 10:19 Torsemide 10 Mg Tablet PO 10 mg DAILY REBEKAH Administration Trazodone HCl 50 mg 10/24/24 22:15 10/25/24 00:54 Trazodone Hcl 50 Mg Tablet PO 50 mg HS PRN Administration Insomnia Radiology Results: ITS Impressions Chest X-Ray 10/23/24 16:06 IMPRESSION: Left lower lobe atelectasis versus pneumonia. Multiple rib fractures in the right mid thorax. Chest CTA 10/23/24 17:25 IMPRESSION: 1. No pulmonary embolism. 2. Left basilar atelectasis versus pneumonia. 3. Ascending aorta measures 4.7 cm. Follow-up advised. 4. Minimal left pleural effusion. 5. Cardiomegaly. Labs Labs: Laboratory Results - last 24 hr 10/26/24 05:13 WBC 6.1 RBC 3.82 L Hgb 12.7 Hct 39.3 MCV 102.9 H MCH 33.2 H MCHC 32.3 RDW 12.4 Plt Count 182 MPV 9.3 Sodium 140 Potassium 4.2 Chloride 104 Carbon Dioxide 26 Anion Gap 10 BUN 25 H Creatinine 1.75 H Estim Creat Clear Calc 37 Estimated GFR 39 L Glucose 114 H Calculated Osmolality 295 Calcium 8.9 Magnesium 1.5 L Total Bilirubin 0.8 AST 26 ALT 26 Alkaline Phosphatase 69 Total Protein 6.5 Albumin 2.7 L Quality VTE Prophylaxis VTE prophylaxis: pharmacologic ordered -Patient's previous records reviewed on admission -ER notes reviewed in detail on admission -discussed all findings and current treatment plan with patient/Family/POA -Consultations reviewed for recommendations -Patient's disposition for safe discharge discussed with case manager Dictation performed by [employer] direct speech recognition software, therefore tobacco drummer variants and typographical errors may occur. Hospitalist MIPS Advance Care Plan I have confirmed that the patient's Advanced Care Plan is present, code status is documented, or surrogate decision maker is listed in patient medical record.: Yes Medication Reconciliation I have utilized all available resources to obtain, update and review the patients current medications (includes all prescriptions, OTC, herbals, cannabis, and nutritional supplements).: Yes The patient is not eligible for med reconciliation; the patient is in a emergent medical situation where delaying treatment would jeopardize the patients health.: No
[2024-10-26] MEDS: traZODone HCL 50 MG TABLET PO (20:01)
[2024-10-26] MEDS: HYDROcodone/acetaminophen (*CRX) 5-325 MG TABLET 1 TAB PO (23:38)
--- NOTE | 2024-10-26 23:50 | PC.NURSE ---
Request Mechanical Lead from [facility] in [place] to come see him in am.
--- NOTE | 2024-10-26 23:51 | PC.NURSE ---
Maite Pena, checker in informed of need to contact from [facility] in [place] per patient request.
--- NOTE | 2024-10-27 00:38 | PC.NURSE ---
Encouraged to use incentive spirometer upon awakening and patient would not use it.
[2024-10-27] MEDS: chlordiazePOXIDE (*CRX) 25 MG CAPSULE 50 MG PO ×2 (03:15→09:09)
[2024-10-27 03:50] VITALS: PULSE 88
[2024-10-27 05:17] LABS: Hematocrit 34.6 % (37.0-46.0); Hemoglobin 11.5 g/dL (12.4-15.3); Mean Corpuscular HGB Conc 33.2 g/dL (32-36); Mean Corpuscular Hemoglobin 33.5 pg (27.0-31.0); Mean Corpuscular Volume 100.9 fL (78.0-102.0); Mean Platelet Volume 9.4 fl (8.7-11.0); Platelet Count Result 171 K/mm3 (150-420); Red Blood Count 3.43 M/mm3 (4.70-6.10); Red Cell Distribution Width 12.4 % (11.6-14.4); White Blood Count 4.9 K/mm3 (4.8-10.8)
[2024-10-27 05:32] LABS: Alanine Aminotransferase 23 U/L (16-63); Albumin Level 2.2 g/dL (3.4-5.0); Alkaline Phosphatase 57 U/L (46-116); Anion Gap 7 mmol/L (4-12); Aspartate Amino Transferase 28 U/L (15-37); Bilirubin,Total 0.5 mg/dL (0.00-1.00); Blood Urea Nitrogen 26 mg/dL (7-18); Calcium 8.5 mg/dL (8.5-10.1); Carbon Dioxide 27 mmol/L (21-32); Chloride 105 mmol/L (98-108); Estimated CRCL calculation 38 ml/min; Estimated Glomerular Filt Rate 40; Glucose 134 mg/dL (70-99); Magnesium 1.5 mg/dL (1.8-2.4); Osmolality Calculated 294 mOsm/kg (285-295); Potassium 3.6 mmol/L (3.5-5.1); Sodium 139 mmol/L (136-145); Total Protein 5.7 g/dL (6.4-8.2)
--- NOTE | 2024-10-27 06:46 | PC.NURSE ---
Patient sleeping, Incentive Spirometer not used as patient sleeping.
[2024-10-27 08:00] VITALS: BP 124/81; PULSE 82; RESP 18; TEMP 35.8; O2SAT 93
[2024-10-27] MEDS: MAGNESIUM OXIDE 400 MG TABLET PO (09:06)
[2024-10-27] MEDS: FOLIC ACID 1 MG TABLET PO (09:06)
[2024-10-27] MEDS: DULoxetine HCL 30 MG CAPSULE.DR PO (09:07)
[2024-10-27] MEDS: AZITHROMYCIN 250 MG TABLET 500 MG PO (09:07)
[2024-10-27] MEDS: ACETAMINOPHEN 325 MG TABLET 650 MG PO (09:07)
[2024-10-27] MEDS: EZETIMIBE 10 MG TABLET PO (09:08)
[2024-10-27] MEDS: PANTOPRAZOLE 40 MG TABLET PO (09:08)
[2024-10-27] MEDS: ATORVASTATIN 40 MG TABLET 80 MG PO (09:08)
[2024-10-27] MEDS: TORSEMIDE 10 MG TABLET PO (09:08)
[2024-10-27] MEDS: NIFEdipine 30 MG TAB.ER.24 PO (09:08)
[2024-10-27 09:09] VITALS: PULSE 82
[2024-10-27] MEDS: METOPROLOL TARTRATE 25 MG TABLET PO (09:09)
[2024-10-27] MEDS: APIXABAN 2.5 MG TABLET 5 MG PO (09:09)
--- NOTE | 2024-10-27 09:09 | P.DS_ITS ---
DS: Admitting Diagnosis Discharge Date 10/27/2024 Admitting Diagnosis Pneumonia/ alcohol withdrawal/ frequent falls/ rib fractures DS: Discharge Diagnosis Discharge Diagnosis (1) Alcoholism: Code(s): F10.20 - Alcohol dependence, uncomplicated Status: Acute (2) Pneumonia: Qualifiers: Laterality: left Lung location: lower lobe of lung Pneumonia type: due to unspecified organism Qualified Code(s): J18.9 - Pneumonia, unspecified organism Code(s): J18.9 - Pneumonia, unspecified organism Status: Acute (3) Closed rib fracture: Qualifiers: Encounter type: initial encounter Laterality: right Rib fracture type: multiple ribs Qualified Code(s): S22.41XA - Multiple fractures of ribs, right side, initial encounter for closed fracture Code(s): S22.39XA - Fracture of one rib, unspecified side, initial encounter for closed fracture Status: Acute (4) CAD (coronary artery disease): Code(s): I25.10 - Atherosclerotic heart disease of [place] coronary artery without angina pectoris Status: Acute (5) Hyperlipidemia: Code(s): E78.5 - Hyperlipidemia, unspecified Status: Acute (6) Hypertension: Code(s): I10 - Essential (primary) hypertension Status: Acute (7) A-fib: Qualifiers: Atrial fibrillation type: unspecified Qualified Code(s): I48.91 - Unspecified atrial fibrillation Code(s): I48.91 - Unspecified atrial fibrillation Status: Acute (8) Ascending aorta dilatation: Code(s): I77.810 - Thoracic aortic ectasia Status: Acute DS: Summary Hospital Course Reason for hospitalization: Pneumonia/ alcohol withdrawal/ frequent falls/ rib fractures Hospital Course: Patient was a 69-year-old male who presented to the emergency department with complaints of shortness breath, fall at home and generalized weakness. Patient had recently been seen in the emergency department a few days ago for previous fall with rib fractures presents today for secondary fall and complaints worsening shortness of breath. Patient's labs unremarkable and oxygen saturation stable however patient was in AFib with RVR in the 120s initially. Patient did report a past medical history of HLD, [place] with 2 stents, atrial fibrillation,hypertension, and alcoholism. a CTA was done to rule out pulmonary embolism which was negative however did show left basilar atelectasis versus pneumonia, minimal left pleural effusion, cardiomegaly, and a 4.7 cm ascending aorta. patient was admitted to the medical unit for further evaluation and treatment pneumonia and pain control for rib fractures. upon assessment patient had noticeable tremors as well as diaphoresis and was tachycardic in the 120s, speaking with patient and his ex- patient has a history of alcoholism had reported his last drink was 3 days ago however patient is a daily drinker with multiple falls at home per ex- who states she is very concerned for his safety. patient reports he is on Eliquis for his atrial fibrillation did educate him on the concerns for frequent fall and increased risk for GI bleed due to his alcoholism. patient was also becoming more agitated withdrawal protocol was started. patient did have atypical chest pain area broken ribs and difficulty inspiration denied fever, chills, nausea or vomiting. patient continued to mild withdrawal symptoms but were improving day by day no further hallucinations reported taper down Librium was started on multivitamin, folic acid and thiamine for further treatment. Patient's pneumonia continued to improve still had mild nonproductive cough but remained on room air. Increase patient's metoprolol due to HR in the 120s with improvement to rate in the mid 80s remained in AFib relation Eliquis had been resumed. patient still with generalized weakness and unsteady gait physical therapy and myself recommended swing bed for continued rehabilitation patient aware of discharge plan and agreed. Patient with low magnesium at 1.1 however did report a reaction to magnesium sulfate of anaphylaxis shock so initiated him on oral magnesium oxide with improvement to 1.5 need continued at discharge as well. Care coordination provided patient with some rehab services long discussion with patient regarding the need for immediate alcohol cessation as well as the dangers of Eliquis with his alcoholism and frequent falls. reviewed labs day of discharge vital stable and labs unremarkable patient was then discharged to [facility] swing bed for further rehab prior to returning home. patient also notified of the need to follow-up outpatient for further evaluation of his 4.7 cm ascending aorta. Status at Discharge Functional status at discharge: uses cane/walker Overall status at discharge: patient is progressing back to baseline Time Spent with Patient Time attestation: Total time spent providing and/or coordinating discharge services: Time spent: Greater than 30 minutes Exam Narrative: Physical Exam: * GENERAL: Alert and oriented x 3. mild tremors and diaphoresis * EYES: PERRLA. * HEENT: moist mucous membranes. * LUNGS: diminished bilateral lower lobe on auscultation pain with inspiration/expiration * CARDIOVASCULAR: irregular irregular >110's HR, lower chest rib pain * ABDOMEN: Soft, nontender and non-distended. No palpable masses. * EXTREMITIES: No edema. Non-tender, unsteady gait * SKIN: No rashes or lesions. Skin warm, dry. diaphoresis * NEUROLOGIC: No focal neurological deficits. CN II-XII grossly intact * PSYCHIATRIC: appropriate mood and affect. poor judgement and insight. DS: Data Data Completed and Pending Labs on day of discharge: Labs from last 24 hours 10/27/24 05:05 WBC 4.9 RBC 3.43 L Hgb 11.5 L Hct 34.6 L MCV 100.9 MCH 33.5 H MCHC 33.2 RDW 12.4 Plt Count 171 MPV 9.4 Sodium 139 Potassium 3.6 Chloride 105 Carbon Dioxide 27 Anion Gap 7 BUN 26 H Creatinine 1.71 H Estim Creat Clear Calc 38 Estimated GFR 40 L Glucose 134 H Calculated Osmolality 294 Calcium 8.5 Magnesium 1.5 L Total Bilirubin 0.5 AST 28 ALT 23 Alkaline Phosphatase 57 Total Protein 5.7 L Albumin 2.2 L Preliminary micro results at discharge 10/23/24 17:23 Blood Culture - Preliminary Blood 10/23/24 17:24 Blood Culture - Preliminary Blood Imaging Radiologist's impression: Radiology Results: ITS Impressions Chest X-Ray 10/23/24 16:06 IMPRESSION: Left lower lobe atelectasis versus pneumonia. Multiple rib fractures in the right mid thorax. Chest CTA 10/23/24 17:25 IMPRESSION: 1. No pulmonary embolism. 2. Left basilar atelectasis versus pneumonia. 3. Ascending aorta measures 4.7 cm. Follow-up advised. 4. Minimal left pleural effusion. 5. Cardiomegaly. Discharge Plan Discharge Attending physician on discharge: Timothy Montoya Discharging Clinician: Maria Del Rosario Yuen Anticipated Discharge Date/Time: 10/27/24 08:57 Patient Disposition: Hospital Swing Bed Activity: may shower and as tolerated Diet: heart healthy Discharge Instructions: You are being discharged to [facility] bed for continued rehabilitation after treatment for pneumonia, alcohol withdrawal, falls with broken ribs. I encouraged immediate alcohol cessation. please review over rehab services provided by the care coordination I encourage follow-up once discharged from [facility]. your currently on Eliquis for atrial fibrillation you are at high risk bleeding due to alcoholism and frequent falls this would be something that needs to be discussed with your crtt to determine risk versus benefits. I have prescribed you oral antibiotics for unit pneumonia please continue to take as prescribed as well as added a folic acid, thiamine and multivitamin. I will also continue your Librium at a lower dose that can be tapered. you will need follow-up with your crtt and primary care physician once discharged from [facility]. your CTA chest did show a 4.7 ascending aorta which will need follow-up in close monitoring outpatient How can you care for yourself at home? ? Keep track of any new symptoms or changes in your symptoms. ? Rest until you feel better. ? Be safe with medicines. Take your medicines exactly as prescribed. Call your doctor if you think you are having a problem with your medicine. ? Do not drive after taking a prescription pain medicine. ? Ensure to follow-up with primary care physician as indicated and provide updated medication list provided to you at discharge. When should you call for help? Call 911 anytime you think you may need emergency care. For example, call if: ? You passed out (lost consciousness). Call your doctor now or seek immediate medical care if: ? You have new symptoms like fever, difficulty breathing, Chest pain, vomiting, or rash. ? You have new or different pain. ? You are confused and are having trouble thinking clearly. ? Your symptoms are getting worse. Watch closely for changes in your health, and be sure to contact your doctor if: ? You do not get better as expected. Patient Instructions: Antibiotic Form Patient Language: Slovak Stand Alone Forms: General Discharge Information Follow-up/Referrals: Mireille,Anne Campos MD [Primary Care Provider] - Call for Appointment Discharge Medications: New pantoprazole 40 mg Tablet,Delayed Release (Dr/Ec) 40 mg PO QAM Qty: 1 0RF metoprolol tartrate 25 mg Tablet 25 mg PO Q12HR Qty: 1 0RF magnesium oxide 400 mg (241.3 mg magnesium) Tablet 400 mg PO BID Qty: 1 0RF folic acid 1 mg Tablet 1 mg PO DAILY Qty: 1 0RF multivitamin with folic acid [Thera] 400 mcg Tablet 1 tablet PO QAM Qty: 1 0RF thiamine HCl (vitamin B1) [Vitamin B-1] 100 mg Tablet 100 mg PO QAM Qty: 1 0RF chlordiazepoxide HCl 25 mg Capsule 25 mg PO TID Qty: 1 0RF trazodone 50 mg Tablet 50 mg PO HS PRN (Reason: Insomnia) Qty: 1 0RF Continued nifedipine 30 mg tablet extended release 24hr 30 mg PO DAILY atorvastatin 80 mg tablet 80 mg PO DAILY torsemide 10 mg tablet 10 mg PO DAILY ezetimibe 10 mg tablet 10 mg PO DAILY duloxetine 30 mg capsule,delayed release(DR/EC) 30 mg PO DAILY fenofibric acid (choline) 45 mg capsule,delayed release(DR/EC) 45 mg PO DAILY hydrocodone-acetaminophen 10-325 mg tablet 1 tablet PO Q8H PRN (Reason: pain) Qty: 20 0RF Rx Instructions: 1/2-1 tab per dose Eliquis 5 mg Tablet 5 mg PO BID Patient Comments: pt gets eliquis samples from Dr. Anne Kendrick's office ([phone], ext [phone]). has been taking since 03/2023 per momo Date of admission: 10/24/24 11:14 Primary Care Provider: Mireille,Anne Campos Admitting Provider: Timothy Montoya Attending physician on admission: Maria Del Rosario Yuen Condition: Stable Quality VTE Prophylaxis VTE prophylaxis: pharmacologic ordered -Patient's previous records reviewed on admission -ER notes reviewed in detail on admission -discussed all findings and current treatment plan with patient/Family/POA -Consultations reviewed for recommendations -Patient's disposition for safe discharge discussed with case fitter Dictation performed by [employer] direct speech recognition software, therefore accounting/finance tutor variants and typographical errors may occur. Hospitalist MIPS Heart Failure (Exclusion) Patient has history of Heart Transplant or Left Ventricular Assistive Device?: No IF YES, STOP HERE Heart Failure (Qualifier) Patient has current or prior documentation of LVEF less than or equal to 40%, or mod/servere depressed LVSF?: No IF NO, STOP HERE
[2024-10-27] MEDS: MULTIVITAMINS THERAPEUTIC TAB (*BKC) 1 TABLET PO (09:10)
[2024-10-27] MEDS: THIAMINE HCL 100 MG TABLET PO (09:10)
[2024-10-27] MEDS: FENOFIBRIC ACID 45 MG PO (09:11)
[2024-10-27] MEDS: [UNRECOGNIZED DRUG - OTHER] PO (09:11)
[2024-10-27 12:00] VITALS: PULSE 81
== END 2024-10-27 09:00 | disposition swing bed (61) | DRG 194 ==
LOC: CHSED 19:52 → CHS2ND 21:04
PROVIDERS: Admitting Provider Internal Medicine; Emergency Provider Emergency Medicine; PCP Family Medicine; Visit Provider Nurse Practitioner Family
DX: J18.9 Pneumonia, unspecified organism (principal); F10.239 Alcohol dependence with withdrawal, unspecified; S22.41XA Multiple fractures of ribs, right side, initial encounter for closed fracture; I48.20 Chronic atrial fibrillation, unspecified; I25.10 Atherosclerotic heart disease of native coronary artery without angina pectoris; I77.810 Thoracic aortic ectasia; E83.42 Hypomagnesemia; E78.5 Hyperlipidemia, unspecified; W19.XXXA Unspecified fall, initial encounter; I25.2 Old myocardial infarction; Z95.5 Presence of coronary angioplasty implant and graft; Z79.01 Long term (current) use of anticoagulants
CPT/HCPCS: 36415; 71045; 71275; 80053; 81001; 83605; 83735; 84484; 85025; 85027; 85380; 87040; 93005; 96361; 96365; 96367; 96372; 96375; 97110; 97161; 97166; 97530; 99285; A9270; G0378; J0456; J0696; J1650; J1956; J2060; J2270; J2405; J7030; Q9967

== ENCOUNTER 2024-10-27 09:01 | Inpatient (IN) | payer MEDICARE, SELFPAY ==
--- NOTE | ~2024-10-27 | XR_ITS ---
XR chest 1V portable 11/06/2024 09:09 Indication: Shortness of breath Procedure: AP portable chest Comparison: 10/23/2024 Findings: There are left perihilar infiltrates. Shallow inspiration. Healed right rib fractures with adjacent pleural thickening. No edema or pneumothorax. No significant effusion. Impression: 1: Left perihilar infiltrates which may represent atelectasis or developing pneumonia. Reviewed, dictated and finalized at location B. [facility] [employer] Impression: 1: Left perihilar infiltrates which may represent atelectasis or developing pne umonia.
--- NOTE | 2024-10-27 09:01 | PC.NURSE ---
Patient discharged from inpatient status to swing bed status.
[2024-10-27 09:05] VITALS: BP 124/81; PULSE 82; RESP 18; TEMP 36.2; O2SAT 93; BMI 27.2
[2024-10-27 14:32] VITALS: PULSE 82; RESP 18; O2SAT 93
--- NOTE | 2024-10-27 15:46 | PHAR ---
[facility]NA[facility] AT [place] [facility] IDENTIFIED MARKINGS ON TABLET Drug Name:Fenofibric Acid Ingredients:??Fenofibric [email or web address]/ND_PR/evidencexpert/ND_P/evidencexpert/[email or web address]/ND_PG/evidencexpert/ND_B/evidencexpert/ND_AppProduct/evidencexpert/ND_T/evidencexpert/PFActionId/evidencexpert .IntermediateToDocumentLink?[email or web address]?-- 45 MG Color:?Reddish-brown Opaque ,?Yellow Opaque Shape:?Capsule-shape Imprint:??167 Imprint Code Description:?Imprinted with 167 on both the cap and body in black ink Form:?Oral Capsule, Delayed Release
[2024-10-27 16:00] VITALS: BP 136/73; PULSE 79; RESP 16; TEMP 35.9; O2SAT 94
[2024-10-27] MEDS: chlordiazePOXIDE (*CRX) 25 MG CAPSULE PO (16:49)
[2024-10-27] MEDS: MAGNESIUM OXIDE 400 MG TABLET PO (16:49)
[2024-10-27 20:00] VITALS: PULSE 86; RESP 16; O2SAT 94
[2024-10-27] MEDS: APIXABAN 2.5 MG TABLET 5 MG BY MOUTH (20:13)
[2024-10-27] MEDS: traZODone HCL 50 MG TABLET PO (20:13)
[2024-10-27 20:14] VITALS: PULSE 86
[2024-10-27] MEDS: METOPROLOL TARTRATE 25 MG TABLET PO (20:14)
[2024-10-28] VITALS: BP 136/81; PULSE 86; RESP 16; TEMP 36.2; O2SAT 97
[2024-10-28 08:00] VITALS: BP 134/72; PULSE 88; RESP 18; TEMP 36.1; O2SAT 96
--- NOTE | 2024-10-28 08:10 | P.HP_ITS ---
H&P: HPI History of Present Illness Date/Time: 10/28/24 08:10 Chief Complaint: deconditioned/ unsteady gait/ rehabilitation Narrative: Patient is a 69-year-old male who initially presented to [facility] with complaints of generalized weakness, shortness of breath and fall at home. Patient has known past medical history HLD, SC with 2 stents, atrial fibrillation,hypertension, and alcoholism. patient was then admitted and treated for pneumonia, AFib with RVR and alcohol withdrawal. during patient's admission he continued to improve with IV antibiotics and was started on Librium for the alcohol withdrawals as well as folic acid, thiamine and multivitamins patient with overall improvement to symptoms remained on room air and pain well controlled for rib fractures. PT/OT had evaluated patient patient continued unsteady gait and concerns for returning home due to frequent falls, patient was agreeable and admitted to [place] swing bed for further rehabilitation. Patient's vitals stable and labs unremarkable when discharge to swing bed need to continue Mag oxide b.i.d. due to low Mag of 1.1 which improved to 1.5. patient was provided resources for AA and rehab post discharge. patient had denied any chest pain, nausea/vomiting, abdominal pain, fever, chills but did endorse mild shortness of breath due to rib fractures and weakness. Review of Systems Review of Systems: All systems reviewed & are unremarkable except as noted in HPI and below PMFSH Past Medical History Medical History A-fib Alcoholism Ascending aorta dilatation CAD (coronary artery disease) Closed rib fracture Hyperlipidemia Hypertension Myocardial infarction Social History Social History Smoking status: Never smoker Second hand tobacco smoke exposure: No Alcohol intake: former Drinks per week: 2 Substance use: never Substance use type: does not use Do You Feel Safe in your Home?: Yes Lack of Transportation: No Lack of Food: Never True Current Housing: I Have Housing Concerned About Future Housing: No Difficulty Paying Gas/Electric Bills: No Difficulty Paying for Meds: No Currently Unemployed: No Education: High School Diploma/GED Difficulty w/ Childcare or Family Care: No Spiritual care concerns: Yes Meds Home Medications and Allergies Home Medications Medication Instructions Recorded Confirmed Type atorvastatin 80 mg tablet 80 mg PO DAILY 07/01/23 10/27/24 History duloxetine 30 mg capsule,delayed 30 mg PO DAILY 07/01/23 10/27/24 History release ezetimibe 10 mg tablet 10 mg PO DAILY 07/01/23 10/27/24 History fenofibric acid (choline) 45 mg 45 mg PO DAILY 07/01/23 10/27/24 History capsule,delayed release nifedipine 30 mg tablet,extended 30 mg PO DAILY 07/01/23 10/27/24 History release 24 hr torsemide 10 mg tablet 10 mg PO DAILY 07/01/23 10/27/24 History hydrocodone 10 mg-acetaminophen 1 tablet PO Q8H PRN pain #20 tabs 10/22/24 10/27/24 Rx 325 mg tablet apixaban 5 mg tablet (Eliquis) 5 mg PO BID 10/25/24 10/27/24 History chlordiazepoxide HCl 25 mg capsule 25 mg PO TID #1 cap 10/27/24 10/27/24 Rx folic acid 1 mg tablet 1 mg PO DAILY #1 tablet 10/27/24 10/27/24 Rx magnesium oxide 400 mg (241.3 mg 400 mg PO BID #1 tablet 10/27/24 10/27/24 Rx magnesium) tablet metoprolol tartrate 25 mg tablet 25 mg PO Q12HR #1 tablet 10/27/24 10/27/24 Rx multivitamin with folic acid 400 1 tablet PO QAM #1 tablet 10/27/24 10/27/24 Rx mcg tablet (Thera) pantoprazole 40 mg tablet,delayed 40 mg PO QAM #1 tablet 10/27/24 10/27/24 Rx release thiamine HCl (vitamin B1) 100 mg 100 mg PO QAM #1 tablet 10/27/24 10/27/24 Rx tablet (Vitamin B-1) trazodone 50 mg tablet 50 mg PO HS PRN Insomnia #1 tablet 10/27/24 10/27/24 Rx Allergies Allergy/AdvReac Type Severity Reaction Status Date / Time magnesium sulfate AdvReac Intermediate Flushing Verified 10/27/24 15:01 Vital Signs Vital Signs - 24 hr 10/27/24 09:05 10/27/24 09:05 10/27/24 14:32 Temperature 97.1 F L Pulse Rate 82 82 82 Respiratory Rate 18 18 18 Blood Pressure 124/81 Pulse Oximetry 93 93 93 Oxygen Delivery Room Air Room Air Room Air 10/27/24 16:00 10/27/24 20:14 10/27/24 20:00 Temperature 96.7 F L Pulse Rate 79 86 86 Respiratory Rate 16 16 Blood Pressure 136/73 Pulse Oximetry 94 94 Oxygen Delivery Room Air Room Air 10/28/24 00:00 Temperature 97.2 F L Pulse Rate 86 Respiratory Rate 16 Blood Pressure 136/81 Pulse Oximetry 97 Oxygen Delivery Room Air Exam Narrative: * GENERAL: Alert and oriented x 3. mild tremors and diaphoresis * EYES: PERRLA. * HEENT: moist mucous membranes. * LUNGS: diminished bilateral lower lobe on auscultation pain with inspiration/expiration * CARDIOVASCULAR: irregular irregular rate controlled, lower chest rib pain * ABDOMEN: Soft, nontender and non-distended. No palpable masses. * EXTREMITIES: No edema. Non-tender, unsteady gait * SKIN: No rashes or lesions. Skin warm, dry. diaphoresis * NEUROLOGIC: No focal neurological deficits. CN II-XII grossly intact * PSYCHIATRIC: appropriate mood and affect. poor judgement and insight. Assessment and Plan Assessment and plan (1) Unsteady gait: Code(s): R26.81 - Unsteadiness on feet Status: Acute Assessment and Plan: * secondary to pneumonia and likely alcoholism * PT/OT for rehabilitation (2) Pneumonia: Qualifiers: Laterality: left Lung location: lower lobe of lung Pneumonia type: due to unspecified organism Qualified Code(s): J18.9 - Pneumonia, unspecified organism Code(s): J18.9 - Pneumonia, unspecified organism Status: Acute Assessment and Plan: * improved and stable * resumed oral antibiotics * oxygen as needed * incentive spirometer * pain control due to rib fracture (3) Closed rib fracture: Qualifiers: Encounter type: initial encounter Laterality: right Rib fracture type: multiple ribs Qualified Code(s): S22.41XA - Multiple fractures of ribs, right side, initial encounter for closed fracture Code(s): S22.39XA - Fracture of one rib, unspecified side, initial encounter for closed fracture Status: Acute Assessment and Plan: * new and old rib fractures bilateral * patient with multiple falls per ex- * fall secondary to patient's alcoholism * incentive spirometer * pain control * PT OT for ambulation * pillow brace for cough (4) Alcoholism: Code(s): F10.20 - Alcohol dependence, uncomplicated Status: Acute Assessment and Plan: * patient day withdrawals overall improvement * Librium p.r.n. * resume folic acid, thiamine, multivitamins * care coordination provided AA and rehab services outpatient * encouraged immediate alcohol cessation (5) A-fib: Qualifiers: Atrial fibrillation type: unspecified Qualified Code(s): I48.91 - Unspecified atrial fibrillation Code(s): I48.91 - Unspecified atrial fibrillation Status: Acute Assessment and Plan: * resume patient's metoprolol and Eliquis * discussion has been had with patient regarding risks and benefits due to his frequent falls and alcoholism * monitor for signs of bleeding (6) CAD (coronary artery disease): Code(s): I25.10 - Atherosclerotic heart disease of [place] coronary artery without angina pectoris Status: Acute Assessment and Plan: * previous history of SC with stents * resume patient's statin, Eliquis, BB (7) Hypertension: Code(s): I10 - Essential (primary) hypertension Status: Acute Assessment and Plan: * BP reviewed stable * resume patient's metoprolol and nifedipine * monitor BP per unit protocol (8) Hyperlipidemia: Code(s): E78.5 - Hyperlipidemia, unspecified Status: Acute Assessment and Plan: * resume patient's atorvastatin (9) Ascending aorta dilatation: Code(s): I77.810 - Thoracic aortic ectasia Status: Acute Assessment and Plan: * CTA showed 4.7 cm ascending aorta * will need follow-up outpatient * keep BP controlled (10) Hypomagnesemia: Code(s): E83.42 - Hypomagnesemia Status: Acute Assessment and Plan: * patient's magnesium 1.1 previous admission last 1.5 * resume patient's magnesium oxide b.i.d. Plan Code status: Full code per patient DVT prophylaxis: Eliquis Stress ulcer prophylaxis: Protonix 40 daily PT/OT notes: swing bed Disposition: patient was admitted to [facility] for continued rehabilitation for unsteady gait, generalized weakness and deconditioned state. plan will be to discharge to home when medically stable. Quality VTE Prophylaxis VTE prophylaxis: pharmacologic ordered -Patient's previous records reviewed on admission -ER notes reviewed in detail on admission -discussed all findings and current treatment plan with patient/Family/POA -Consultations reviewed for recommendations -Patient's disposition for safe discharge discussed with skilled nursing case manager Dictation performed by [employer] direct speech recognition software, therefore candle molder variants and typographical errors may occur. Hospitalist [facility] Advance Care Plan I have confirmed that the patient's Advanced Care Plan is present, code status is documented, or surrogate decision maker is listed in patient medical record.: Yes Medication Reconciliation I have utilized all available resources to obtain, update and review the patients current medications (includes all prescriptions, OTC, herbals, cannabis, and nutritional supplements).: Yes The patient is not eligible for med reconciliation; the patient is in a emergent medical situation where delaying treatment would jeopardize the patients health.: No
[2024-10-28] MEDS: MAGNESIUM OXIDE 400 MG TABLET PO ×2 (08:24→17:12)
[2024-10-28] MEDS: NIFEdipine 30 MG TAB.ER.24 PO (08:24)
[2024-10-28] MEDS: DULoxetine HCL 30 MG CAPSULE.DR PO (08:24)
[2024-10-28] MEDS: ATORVASTATIN 40 MG TABLET 80 MG PO (08:24)
[2024-10-28] MEDS: PANTOPRAZOLE 40 MG TABLET PO (08:24)
[2024-10-28] MEDS: EZETIMIBE 10 MG TABLET PO (08:24)
[2024-10-28 08:25] VITALS: PULSE 88
[2024-10-28] MEDS: TORSEMIDE 10 MG TABLET PO (08:25)
[2024-10-28] MEDS: APIXABAN 2.5 MG TABLET 5 MG BY MOUTH ×2 (08:25→20:45)
[2024-10-28] MEDS: METOPROLOL TARTRATE 25 MG TABLET PO ×2 (08:25→20:45)
[2024-10-28] MEDS: chlordiazePOXIDE (*CRX) 25 MG CAPSULE PO ×3 (08:25→17:12)
[2024-10-28] MEDS: FOLIC ACID 1 MG TABLET PO (08:25)
[2024-10-28] MEDS: THIAMINE HCL 100 MG TABLET PO (08:25)
[2024-10-28] MEDS: MULTIVITAMINS THERAPEUTIC TAB (*BKC) 1 TABLET PO (08:25)
[2024-10-28] MEDS: FENOFIBRIC ACID 45 MG 45 EACH PO (08:26)
[2024-10-28 16:00] VITALS: BP 139/82; PULSE 72; RESP 16; TEMP 35.8; O2SAT 97
[2024-10-28 20:00] VITALS: PULSE 97; RESP 16; O2SAT 97
[2024-10-28 20:45] VITALS: PULSE 97
[2024-10-28] MEDS: traZODone HCL 50 MG TABLET PO (20:45)
[2024-10-28] MEDS: ACETAMINOPHEN 325 MG TABLET 650 MG PO (20:45)
[2024-10-29] VITALS: BP 148/84; PULSE 97; RESP 16; TEMP 36.4; O2SAT 97
[2024-10-29 07:50] VITALS: BP 132/71; PULSE 85; RESP 16; TEMP 35.9; O2SAT 95
[2024-10-29 09:43] VITALS: PULSE 85
[2024-10-29] MEDS: ATORVASTATIN 40 MG TABLET 80 MG PO (09:43)
[2024-10-29] MEDS: DULoxetine HCL 30 MG CAPSULE.DR PO (09:43)
[2024-10-29] MEDS: METOPROLOL TARTRATE 25 MG TABLET PO ×2 (09:43→21:35)
[2024-10-29] MEDS: MAGNESIUM OXIDE 400 MG TABLET PO ×2 (09:44→17:43)
[2024-10-29] MEDS: TORSEMIDE 10 MG TABLET PO (09:44)
[2024-10-29] MEDS: ACETAMINOPHEN 325 MG TABLET 650 MG PO ×2 (09:44→21:35)
[2024-10-29] MEDS: APIXABAN 2.5 MG TABLET 5 MG BY MOUTH ×2 (09:44→21:35)
[2024-10-29] MEDS: MULTIVITAMINS THERAPEUTIC TAB (*BKC) 1 TABLET PO (09:44)
[2024-10-29] MEDS: NIFEdipine 30 MG TAB.ER.24 PO (09:44)
[2024-10-29] MEDS: PANTOPRAZOLE 40 MG TABLET PO (09:44)
[2024-10-29] MEDS: FOLIC ACID 1 MG TABLET PO (09:44)
[2024-10-29] MEDS: chlordiazePOXIDE (*CRX) 25 MG CAPSULE PO ×3 (09:44→17:43)
[2024-10-29] MEDS: THIAMINE HCL 100 MG TABLET PO (09:44)
[2024-10-29] MEDS: EZETIMIBE 10 MG TABLET PO (09:44)
[2024-10-29] MEDS: FENOFIBRIC ACID 45 MG 45 EACH PO (10:25)
[2024-10-29 16:30] VITALS: BP 134/78; PULSE 74; RESP 16; TEMP 35.9; O2SAT 93
[2024-10-29 20:00] VITALS: PULSE 74; RESP 16; O2SAT 93
[2024-10-29 21:35] VITALS: PULSE 85
[2024-10-29] MEDS: traZODone HCL 50 MG TABLET PO (21:35)
[2024-10-30] VITALS: BP 125/78; PULSE 85; RESP 17; TEMP 36.2; O2SAT 96
[2024-10-30 08:00] VITALS: BP 138/72; PULSE 98; RESP 16; TEMP 36.3; O2SAT 94
[2024-10-30] MEDS: FENOFIBRIC ACID 45 MG 45 EACH PO (09:55)
[2024-10-30] MEDS: ATORVASTATIN 40 MG TABLET 80 MG PO (09:55)
[2024-10-30 09:56] VITALS: PULSE 97
[2024-10-30] MEDS: APIXABAN 2.5 MG TABLET 5 MG BY MOUTH ×2 (09:56→21:06)
[2024-10-30] MEDS: THIAMINE HCL 100 MG TABLET PO (09:56)
[2024-10-30] MEDS: PANTOPRAZOLE 40 MG TABLET PO (09:56)
[2024-10-30] MEDS: DULoxetine HCL 30 MG CAPSULE.DR PO (09:56)
[2024-10-30] MEDS: METOPROLOL TARTRATE 25 MG TABLET PO ×2 (09:56→21:06)
[2024-10-30] MEDS: NIFEdipine 30 MG TAB.ER.24 PO (09:56)
[2024-10-30] MEDS: MAGNESIUM OXIDE 400 MG TABLET PO ×2 (09:56→18:05)
[2024-10-30] MEDS: MULTIVITAMINS THERAPEUTIC TAB (*BKC) 1 TABLET PO (09:56)
[2024-10-30] MEDS: FOLIC ACID 1 MG TABLET PO (09:56)
[2024-10-30] MEDS: EZETIMIBE 10 MG TABLET PO (09:56)
[2024-10-30] MEDS: chlordiazePOXIDE (*CRX) 25 MG CAPSULE PO (09:56)
[2024-10-30] MEDS: TORSEMIDE 10 MG TABLET PO (09:56)
--- NOTE | 2024-10-30 09:57 | PM.EVENT ---
Event Note Event Note Event Note: Patient still unsteady with Intermittent confusion will continue to taper his Librium currently taper down today to 10 mg t.i.d. eventually I would get to daily and then p.r.clemente. spoke with ex- regarding patient's mental status some concern this may be patient's new or close new baseline due to years of alcoholism.
[2024-10-30] MEDS: chlordiazePOXIDE (*CRX) 10 MG CAPSULE PO ×2 (12:38→18:04)
[2024-10-30 16:00] VITALS: BP 114/54; PULSE 79; RESP 15; TEMP 36.4; O2SAT 91
--- NOTE | 2024-10-30 18:07 | PC.NURSE ---
Pt had IV in right forearm. IV was removed. No s/s of infection noted.
[2024-10-30 21:06] VITALS: PULSE 72
[2024-10-31] VITALS: BP 140/82; PULSE 72; RESP 16; TEMP 36; O2SAT 98
[2024-10-31 08:00] VITALS: BP 141/82; PULSE 90; RESP 16; TEMP 35.7; O2SAT 95
[2024-10-31] MEDS: MAGNESIUM OXIDE 400 MG TABLET PO ×2 (08:07→17:07)
[2024-10-31] MEDS: DULoxetine HCL 30 MG CAPSULE.DR PO (08:07)
[2024-10-31] MEDS: PANTOPRAZOLE 40 MG TABLET PO (08:07)
[2024-10-31] MEDS: NIFEdipine 30 MG TAB.ER.24 PO (08:07)
[2024-10-31] MEDS: chlordiazePOXIDE (*CRX) 10 MG CAPSULE PO ×3 (08:07→17:07)
[2024-10-31] MEDS: APIXABAN 2.5 MG TABLET 5 MG BY MOUTH ×2 (08:07→21:03)
[2024-10-31] MEDS: EZETIMIBE 10 MG TABLET PO (08:07)
[2024-10-31] MEDS: FOLIC ACID 1 MG TABLET PO (08:07)
[2024-10-31] MEDS: THIAMINE HCL 100 MG TABLET PO (08:07)
[2024-10-31] MEDS: ATORVASTATIN 40 MG TABLET 80 MG PO (08:07)
[2024-10-31 08:08] VITALS: PULSE 90
[2024-10-31] MEDS: MULTIVITAMINS THERAPEUTIC TAB (*BKC) 1 TABLET PO (08:08)
[2024-10-31] MEDS: TORSEMIDE 10 MG TABLET PO (08:08)
[2024-10-31] MEDS: FENOFIBRIC ACID 45 MG 45 EACH PO (08:08)
[2024-10-31] MEDS: METOPROLOL TARTRATE 25 MG TABLET PO ×2 (08:08→21:03)
[2024-10-31 16:00] VITALS: BP 119/79; PULSE 82; RESP 18; TEMP 36; O2SAT 95
[2024-11-01] VITALS: BP 140/76; PULSE 76; RESP 16; TEMP 36.2; O2SAT 98
[2024-11-01 07:49] VITALS: BP 148/92; PULSE 18; PULSE 82; RESP 18; RESP 82; TEMP 36.1; O2SAT 96
[2024-11-01] MEDS: chlordiazePOXIDE (*CRX) 10 MG CAPSULE PO (08:31)
[2024-11-01] MEDS: FENOFIBRIC ACID 45 MG 45 EACH PO (08:31)
[2024-11-01] MEDS: FOLIC ACID 1 MG TABLET PO (08:32)
[2024-11-01] MEDS: DULoxetine HCL 30 MG CAPSULE.DR PO (08:32)
[2024-11-01] MEDS: MULTIVITAMINS THERAPEUTIC TAB (*BKC) 1 TABLET PO (08:32)
[2024-11-01] MEDS: APIXABAN 2.5 MG TABLET 5 MG BY MOUTH ×2 (08:32→21:56)
[2024-11-01] MEDS: NIFEdipine 30 MG TAB.ER.24 PO (08:33)
[2024-11-01] MEDS: PANTOPRAZOLE 40 MG TABLET PO (08:33)
[2024-11-01] MEDS: TORSEMIDE 10 MG TABLET PO (08:33)
[2024-11-01] MEDS: EZETIMIBE 10 MG TABLET PO (08:33)
[2024-11-01 08:34] VITALS: PULSE 82
[2024-11-01] MEDS: ATORVASTATIN 40 MG TABLET 80 MG PO (08:34)
[2024-11-01] MEDS: MAGNESIUM OXIDE 400 MG TABLET PO ×2 (08:34→17:07)
[2024-11-01] MEDS: METOPROLOL TARTRATE 25 MG TABLET PO ×2 (08:34→21:56)
[2024-11-01] MEDS: THIAMINE HCL 100 MG TABLET PO (08:35)
[2024-11-01 10:12] LABS: Basophils Absolute Auto 0.04 K/mm3 (0.00-0.10); Basophils Percent Auto 0.7 % (0.0-1.0); Eosinophils Absolute Auto 0.19 K/mm3 (0.02-0.50); Eosinophils Percent Auto 3.6 % (1.0-6.0); Hematocrit 42.3 % (37.0-46.0); Immature Granulocyte Absolute 0.03 K/mm3 (0.00-0.00); Immature Granulocyte Percent A 0.6 % (0.0-0.0); Lymphocytes Percent Auto 20.6 % (18.0-42.0); Mean Corpuscular HGB Conc 33.1 g/dL (32-36); Mean Corpuscular Hemoglobin 33.7 pg (27.0-31.0); Mean Corpuscular Volume 101.9 fL (78.0-102.0); Mean Platelet Volume 9.4 fl (8.7-11.0); Monocytes Absolute Auto 0.45 K/mm3 (0.10-0.90); Monocytes Percent Auto 8.4 % (2.0-11.0); Neutrophils Absolute Auto 3.53 K/mm3 (1.70-7.20); Neutrophils Percent Auto 66.1 % (50.0-70.0); Platelet Count Result 262 K/mm3 (150-420); Red Blood Count 4.15 M/mm3 (4.70-6.10); Red Cell Distribution Width 12.4 % (11.6-14.4); White Blood Count 5.3 K/mm3 (4.8-10.8)
[2024-11-01 10:33] LABS: Alanine Aminotransferase 41 U/L (16-63); Albumin Level 2.9 g/dL (3.4-5.0); Alkaline Phosphatase 73 U/L (46-116); Anion Gap 7 mmol/L (4-12); Aspartate Amino Transferase 37 U/L (15-37); Bilirubin,Total 0.5 mg/dL (0.00-1.00); Blood Urea Nitrogen 32 mg/dL (7-18); Carbon Dioxide 30 mmol/L (21-32); Chloride 104 mmol/L (98-108); Estimated CRCL calculation 32 ml/min; Estimated Glomerular Filt Rate 32; Glucose 138 mg/dL (70-99); Magnesium 1.6 mg/dL (1.8-2.4); Osmolality Calculated 300 mOsm/kg (285-295); Potassium 4.5 mmol/L (3.5-5.1); Sodium 141 mmol/L (136-145); Total Protein 7.1 g/dL (6.4-8.2)
[2024-11-01] MEDS: chlordiazePOXIDE (*CRX) 5 MG CAPSULE PO ×2 (12:56→17:07)
--- NOTE | 2024-11-01 15:40 | PC.NURSE ---
Patient is having difficulty walking and using the walker today. Patient attempted x 2 to get up from the bed to go to [place] . Patient assisted to chair and offered toileting. Nurse reoriented patient to place and time.
[2024-11-01 16:00] VITALS: BP 131/83; PULSE 85; RESP 18; TEMP 36.2; O2SAT 99
[2024-11-01 20:00] VITALS: PULSE 76; RESP 18; O2SAT 99
[2024-11-01 21:56] VITALS: PULSE 76
[2024-11-01] MEDS: traZODone HCL 50 MG TABLET PO (21:56)
[2024-11-01] MEDS: ACETAMINOPHEN 325 MG TABLET 650 MG PO (21:56)
[2024-11-02] VITALS: BP 129/75; PULSE 76; RESP 17; TEMP 36.3; O2SAT 97
--- NOTE | 2024-11-02 05:34 | PC.NURSE ---
Patient has not voided this shift, bladder scan performed with residual volume of 271mL, no bladder distention noted, patient does complain of abdominal tenderness during bladder scan, alleviated when scan completed.
[2024-11-02 08:00] VITALS: BP 141/84; PULSE 99; RESP 18; TEMP 36.2; O2SAT 90
[2024-11-02] MEDS: ACETAMINOPHEN 325 MG TABLET 650 MG PO ×2 (09:05→17:10)
[2024-11-02] MEDS: FENOFIBRIC ACID 45 MG 45 EACH PO (09:05)
[2024-11-02] MEDS: MAGNESIUM OXIDE 400 MG TABLET PO ×2 (09:06→17:10)
[2024-11-02] MEDS: NIFEdipine 30 MG TAB.ER.24 PO (09:06)
[2024-11-02] MEDS: PANTOPRAZOLE 40 MG TABLET PO (09:07)
[2024-11-02] MEDS: FOLIC ACID 1 MG TABLET PO (09:07)
[2024-11-02] MEDS: TORSEMIDE 10 MG TABLET PO (09:07)
[2024-11-02] MEDS: ATORVASTATIN 40 MG TABLET 80 MG PO (09:07)
[2024-11-02 09:08] VITALS: PULSE 90
[2024-11-02] MEDS: EZETIMIBE 10 MG TABLET PO (09:08)
[2024-11-02] MEDS: DULoxetine HCL 30 MG CAPSULE.DR PO (09:08)
[2024-11-02] MEDS: APIXABAN 2.5 MG TABLET 5 MG BY MOUTH ×2 (09:08→20:50)
[2024-11-02] MEDS: METOPROLOL TARTRATE 25 MG TABLET PO ×2 (09:08→20:51)
[2024-11-02] MEDS: MULTIVITAMINS THERAPEUTIC TAB (*BKC) 1 TABLET PO (09:08)
[2024-11-02] MEDS: THIAMINE HCL 100 MG TABLET PO (09:09)
[2024-11-02] MEDS: chlordiazePOXIDE (*CRX) 5 MG CAPSULE PO ×3 (09:13→17:10)
--- NOTE | 2024-11-02 14:09 | PC.NURSE ---
Patient confusion continues. Patient was able to void 650 ml dark yellow urine at around 1000am. Nurse continues to encourage fluids. Patient is requiring 2 assist with veronika steady for transfer to chair or commode. Patient can not follow simple instructions well today.
[2024-11-02 16:00] VITALS: BP 125/69; PULSE 77; RESP 18; TEMP 36.2; O2SAT 98
[2024-11-02] MEDS: traZODone HCL 50 MG TABLET PO (20:50)
[2024-11-02 20:51] VITALS: PULSE 75
[2024-11-03] VITALS: BP 129/81; PULSE 80; RESP 17; TEMP 36.6; O2SAT 94
--- NOTE | 2024-11-03 07:16 | P.PNIM_ITS ---
Progress Note: A&P Assessment and Plan (1) Unsteady gait: Code(s): R26.81 - Unsteadiness on feet Status: Acute Assessment and Plan: * Continue PT and OT * Case coordination following (2) Pneumonia: Qualifiers: Laterality: left Lung location: lower lobe of lung Pneumonia type: due to unspecified organism Qualified Code(s): J18.9 - Pneumonia, unspecified organism Code(s): J18.9 - Pneumonia, unspecified organism Status: Acute Assessment and Plan: * Finished antibiotic course * incentive spirometer (3) Closed rib fracture: Qualifiers: Encounter type: initial encounter Laterality: right Rib fracture type: multiple ribs Qualified Code(s): S22.41XA - Multiple fractures of ribs, right side, initial encounter for closed fracture Code(s): S22.39XA - Fracture of one rib, unspecified side, initial encounter for closed fracture Status: Acute Assessment and Plan: * new and old rib fractures bilateral * patient with multiple falls per ex- * fall secondary to patient's alcoholism * Continue incentive spirometry * Continue pain control * Continue PT and OT * pillow brace for cough (4) Alcoholism: Code(s): F10.20 - Alcohol dependence, uncomplicated Status: Acute Assessment and Plan: * No withdrawal seen * Continue to wean Librium * Continue folic acid, thiamine, multivitamins * care coordination following (5) A-fib: Qualifiers: Atrial fibrillation type: unspecified Qualified Code(s): I48.91 - Unspecified atrial fibrillation Code(s): I48.91 - Unspecified atrial fibrillation Status: Acute Assessment and Plan: * Continue metoprolol and Eliquis (6) CAD (coronary artery disease): Code(s): I25.10 - Atherosclerotic heart disease of [place] coronary artery without angina pectoris Status: Acute Assessment and Plan: * previous history of NM with stents * Continue Eliquis and atorvastatin (7) Hypertension: Code(s): I10 - Essential (primary) hypertension Status: Acute Assessment and Plan: * BP reviewed stable * Continue metoprolol and nifedipine (8) Hyperlipidemia: Code(s): E78.5 - Hyperlipidemia, unspecified Status: Acute Assessment and Plan: * Continue atorvastatin (9) Ascending aorta dilatation: Code(s): I77.810 - Thoracic aortic ectasia Status: Acute Assessment and Plan: * CTA showed 4.7 cm ascending aorta * will need follow-up outpatient * keep BP controlled (10) Hypomagnesemia: Code(s): E83.42 - Hypomagnesemia Status: Acute Assessment and Plan: * Continue Mag oxide Time Spent With Patient Time with patient: 25 - 35 minutes Subjective Date/time seen: 11/03/24 07:16 Interval history: Patient denies any new complaints today. He has been progressing with therapy. Chart reviewed Review of Systems Review of Systems: All systems reviewed & are unremarkable except as noted in HPI and below Exam Narrative: General: In no acute distress, well nourished Head: atraumatic, no encephalopathy Eyes: PERRLA, sclera clear ENT: moist mucous membranes, nasal passages clear Neck: supple, no JVD, no adenopathy, trachea midline Cardiac: Normal S1 and S2. No murmur, gallops or friction rubs, peripheral pulses intact. Respiratory: Lungs clear to auscultation, no adventitious lung sounds, currently on room air Gastrointestinal: soft, non-distended, non-tender, normoactive bowel sounds. : voiding without difficulty. Extremities: moves all extremities well, no edema Skin: clean, dry, intact. No wounds or lesions. Neuro: Alert and oriented x4, cranial nerves intact, no neuro deficits. Psych: normal mood, normal affect, interactive Objective Data Vital Signs Vital Signs: Vital Signs - 24 hr 11/02/24 08:00 11/02/24 08:00 11/02/24 09:08 Temperature 97.2 F L Pulse Rate 99 99 90 Respiratory Rate 18 18 Blood Pressure 141/84 H Pulse Oximetry 90 90 Oxygen Delivery Room Air Room Air 11/02/24 16:00 11/02/24 20:51 11/03/24 00:00 Temperature 97.2 F L 97.9 F Pulse Rate 77 75 80 Respiratory Rate 18 17 Blood Pressure 125/69 129/81 Pulse Oximetry 98 94 Oxygen Delivery Room Air Room Air Intake/Output Intake/Output: Intake & Output 10/31/24 11/01/24 11/02/24 11/03/24 23:59 23:59 23:59 23:59 Intake Total 2158 662 7730 150 Output Total 1 650 Balance 1429 725 490 150 Meds/Results Medications: Active Medications Generic Name Dose Route Start Last Admin Trade Name Freq PRN Reason Stop Dose Admin Acetaminophen 650 mg 10/27/24 14:31 11/02/24 17:10 Acetaminophen 325 Mg Tablet PO 650 mg Q4H PRN Administration Mild Pain (1-3) or Fever Hydrocodone Bitart/Acetaminophen 1 tab 10/27/24 14:34 Hydrocodone/Acetaminophen (*Crx) 10-325 Mg Tablet PO Q8H PRN pain Apixaban 5 mg 10/27/24 21:00 11/02/24 20:50 Apixaban 2.5 Mg Tablet BY MOUTH 5 mg Q12HR REBEKAH Administration Atorvastatin Calcium 80 mg 10/28/24 09:00 11/02/24 09:07 Atorvastatin 40 Mg Tablet PO 80 mg DAILY REBEKAH Administration Chlordiazepoxide HCl 5 mg 11/01/24 09:00 11/02/24 17:10 Chlordiazepoxide (*Crx) 5 Mg Capsule PO 5 mg TID REBEKAH Administration Duloxetine HCl 30 mg 10/28/24 09:00 11/02/24 09:08 Duloxetine Hcl 30 Mg Capsule.Dr PO 30 mg DAILY REBEKAH Administration Ezetimibe 10 mg 10/28/24 09:00 11/02/24 09:08 Ezetimibe 10 Mg Tablet PO 10 mg DAILY REBEKAH Administration Folic Acid 1 mg 10/28/24 09:00 11/02/24 09:07 Folic Acid 1 Mg Tablet PO 1 mg DAILY REBEKAH Administration Magnesium Oxide 400 mg 10/27/24 17:00 11/02/24 17:10 Magnesium Oxide 400 Mg Tablet PO 400 mg BID REBEKAH Administration Metoprolol Tartrate 25 mg 10/27/24 21:00 11/02/24 20:51 Metoprolol Tartrate 25 Mg Tablet PO 25 mg Q12HR REBEKAH Administration Multivitamins Therapeutic 1 tablet 10/28/24 09:00 11/02/24 09:08 Multivitamins Therapeutic Tab (*Bkc) PO 1 tablet QAM REBEKAH Administration Nifedipine 30 mg 10/28/24 09:00 11/02/24 09:06 Nifedipine 30 Mg Tab.Er.24 PO 30 mg DAILY REBEKAH Administration (Fenofibric Acid ( 45 mg 10/28/24 09:00 11/02/24 09:05 Choline) 45 Mg PO 11/27/24 08:59 45 mg Capsule,Delayed DAILY REBEKAH Administration Release(Dr/Ec)) Ondansetron HCl 4 mg 10/27/24 14:35 Ondansetron Hcl Odt 4 Mg Tablet PO Q6H PRN Nausea And Vomiting Pantoprazole Sodium 40 mg 10/28/24 09:00 11/02/24 09:07 Pantoprazole 40 Mg Tablet PO 40 mg QAM REBEKAH Administration Thiamine HCl 100 mg 10/28/24 09:00 11/02/24 09:09 Thiamine Hcl 100 Mg Tablet PO 100 mg QAM REBEKAH Administration Torsemide 10 mg 10/28/24 09:00 11/02/24 09:07 Torsemide 10 Mg Tablet PO 10 mg DAILY REBEKAH Administration Trazodone HCl 50 mg 10/27/24 14:34 11/02/24 20:50 Trazodone Hcl 50 Mg Tablet PO 50 mg HS PRN Administration Insomnia Quality VTE Prophylaxis VTE prophylaxis: pharmacologic ordered
[2024-11-03 08:00] VITALS: BP 132/78; PULSE 78; RESP 14; TEMP 36.6; O2SAT 97
[2024-11-03] MEDS: FENOFIBRIC ACID 45 MG 45 EACH PO (09:28)
[2024-11-03] MEDS: PANTOPRAZOLE 40 MG TABLET PO (09:28)
[2024-11-03] MEDS: chlordiazePOXIDE (*CRX) 5 MG CAPSULE PO (09:28)
[2024-11-03 09:29] VITALS: PULSE 72
[2024-11-03] MEDS: DULoxetine HCL 30 MG CAPSULE.DR PO (09:29)
[2024-11-03] MEDS: APIXABAN 2.5 MG TABLET 5 MG BY MOUTH ×2 (09:29→21:11)
[2024-11-03] MEDS: TORSEMIDE 10 MG TABLET PO (09:29)
[2024-11-03] MEDS: MULTIVITAMINS THERAPEUTIC TAB (*BKC) 1 TABLET PO (09:29)
[2024-11-03] MEDS: METOPROLOL TARTRATE 25 MG TABLET PO ×2 (09:29→21:11)
[2024-11-03] MEDS: NIFEdipine 30 MG TAB.ER.24 PO (09:29)
[2024-11-03] MEDS: FOLIC ACID 1 MG TABLET PO (09:29)
[2024-11-03] MEDS: EZETIMIBE 10 MG TABLET PO (09:29)
[2024-11-03] MEDS: THIAMINE HCL 100 MG TABLET PO (09:30)
[2024-11-03] MEDS: MAGNESIUM OXIDE 400 MG TABLET PO ×2 (09:30→18:11)
[2024-11-03] MEDS: ATORVASTATIN 40 MG TABLET 80 MG PO (09:30)
[2024-11-03 16:30] VITALS: BP 127/82; PULSE 87; RESP 16; TEMP 36.3; O2SAT 96
[2024-11-03] MEDS: traZODone HCL 50 MG TABLET PO (21:11)
[2024-11-04] VITALS: BP 115/70; PULSE 80; RESP 16; TEMP 36.2; O2SAT 96
[2024-11-04 07:19] LABS: Hematocrit 40.7 % (37.0-46.0); Hemoglobin 13.7 g/dL (12.4-15.3); Mean Corpuscular HGB Conc 33.7 g/dL (32-36); Mean Corpuscular Hemoglobin 33.9 pg (27.0-31.0); Mean Corpuscular Volume 100.7 fL (78.0-102.0); Mean Platelet Volume 9.5 fl (8.7-11.0); Platelet Count Result 243 K/mm3 (150-420); Red Blood Count 4.04 M/mm3 (4.70-6.10); Red Cell Distribution Width 12.2 % (11.6-14.4); White Blood Count 4.3 K/mm3 (4.8-10.8)
[2024-11-04 07:35] LABS: Alanine Aminotransferase 29 U/L (16-63); Albumin Level 2.9 g/dL (3.4-5.0); Alkaline Phosphatase 72 U/L (46-116); Anion Gap 8 mmol/L (4-12); Aspartate Amino Transferase 25 U/L (15-37); Bilirubin,Total 0.5 mg/dL (0.00-1.00); Blood Urea Nitrogen 36 mg/dL (7-18); Calcium 9.6 mg/dL (8.5-10.1); Carbon Dioxide 28 mmol/L (21-32); Chloride 104 mmol/L (98-108); Estimated CRCL calculation 29 ml/min; Estimated Glomerular Filt Rate 29; Glucose 105 mg/dL (70-99); Osmolality Calculated 298 mOsm/kg (285-295); Sodium 140 mmol/L (136-145); Total Protein 6.7 g/dL (6.4-8.2)
[2024-11-04 08:00] VITALS: BP 127/79; PULSE 85; RESP 14; TEMP 36; O2SAT 100
[2024-11-04] MEDS: ATORVASTATIN 40 MG TABLET 80 MG PO (09:54)
[2024-11-04] MEDS: chlordiazePOXIDE (*CRX) 5 MG CAPSULE PO (09:54)
[2024-11-04] MEDS: FENOFIBRIC ACID 45 MG 45 EACH PO (09:54)
[2024-11-04] MEDS: FOLIC ACID 1 MG TABLET PO (09:54)
[2024-11-04] MEDS: NIFEdipine 30 MG TAB.ER.24 PO (09:55)
[2024-11-04] MEDS: PANTOPRAZOLE 40 MG TABLET PO (09:55)
[2024-11-04] MEDS: MULTIVITAMINS THERAPEUTIC TAB (*BKC) 1 TABLET PO (09:55)
[2024-11-04] MEDS: APIXABAN 2.5 MG TABLET 5 MG BY MOUTH ×2 (09:55→20:01)
[2024-11-04] MEDS: THIAMINE HCL 100 MG TABLET PO (09:55)
[2024-11-04] MEDS: MAGNESIUM OXIDE 400 MG TABLET PO ×2 (09:55→17:44)
[2024-11-04] MEDS: DULoxetine HCL 30 MG CAPSULE.DR PO (09:55)
[2024-11-04] MEDS: EZETIMIBE 10 MG TABLET PO (09:55)
[2024-11-04] MEDS: TORSEMIDE 10 MG TABLET PO (09:55)
[2024-11-04 09:56] VITALS: PULSE 85
[2024-11-04] MEDS: METOPROLOL TARTRATE 25 MG TABLET PO ×2 (09:56→20:01)
[2024-11-04 16:25] VITALS: BP 115/61; PULSE 79; RESP 16; TEMP 36.3; O2SAT 99
[2024-11-04] MEDS: traZODone HCL 50 MG TABLET PO (20:01)
[2024-11-05] VITALS: BP 121/69; PULSE 74; RESP 18; TEMP 36.7; O2SAT 97
[2024-11-05 08:00] VITALS: BP 146/81; PULSE 80; RESP 16; TEMP 35.8; O2SAT 90
[2024-11-05] MEDS: ATORVASTATIN 40 MG TABLET 80 MG PO (08:24)
[2024-11-05] MEDS: FENOFIBRIC ACID 45 MG 45 EACH PO (08:24)
[2024-11-05] MEDS: APIXABAN 2.5 MG TABLET 5 MG BY MOUTH ×2 (08:24→21:04)
[2024-11-05] MEDS: NIFEdipine 30 MG TAB.ER.24 PO (08:24)
[2024-11-05] MEDS: MAGNESIUM OXIDE 400 MG TABLET PO ×2 (08:25→17:17)
[2024-11-05] MEDS: ACETAMINOPHEN 325 MG TABLET 650 MG PO (08:25)
[2024-11-05] MEDS: chlordiazePOXIDE (*CRX) 5 MG CAPSULE PO (08:25)
[2024-11-05] MEDS: DULoxetine HCL 30 MG CAPSULE.DR PO (08:26)
[2024-11-05] MEDS: MULTIVITAMINS THERAPEUTIC TAB (*BKC) 1 TABLET PO (08:26)
[2024-11-05] MEDS: FOLIC ACID 1 MG TABLET PO (08:26)
[2024-11-05] MEDS: TORSEMIDE 10 MG TABLET PO (08:26)
[2024-11-05] MEDS: PANTOPRAZOLE 40 MG TABLET PO (08:26)
[2024-11-05 08:27] VITALS: PULSE 80
[2024-11-05] MEDS: EZETIMIBE 10 MG TABLET PO (08:27)
[2024-11-05] MEDS: METOPROLOL TARTRATE 25 MG TABLET PO ×2 (08:27→21:04)
[2024-11-05] MEDS: THIAMINE HCL 100 MG TABLET PO (08:29)
--- NOTE | 2024-11-05 11:23 | PC.NURSE ---
Patient asked to use the bathroom. Employment Legal Assistant assisted patient to the commode, but patient did not go.
[2024-11-05] MEDS: ONDANSETRON HCL ODT 4 MG TABLET PO (11:44)
[2024-11-05 16:00] VITALS: BP 124/71; PULSE 63; RESP 16; TEMP 36; O2SAT 96
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
[2024-11-05 21:04] VITALS: PULSE 80
[2024-11-05] MEDS: traZODone HCL 50 MG TABLET PO (21:04)
[2024-11-06] VITALS: BP 115/65; PULSE 77; RESP 16; TEMP 36.6; O2SAT 93
[2024-11-06 08:00] VITALS: BP 135/78; PULSE 72; RESP 16; TEMP 36; O2SAT 94
[2024-11-06] MEDS: FENOFIBRIC ACID 45 MG 45 EACH PO (09:06)
[2024-11-06] MEDS: ATORVASTATIN 40 MG TABLET 80 MG PO (09:06)
[2024-11-06] MEDS: MAGNESIUM OXIDE 400 MG TABLET PO ×2 (09:06→16:57)
[2024-11-06] MEDS: DULoxetine HCL 30 MG CAPSULE.DR PO (09:06)
[2024-11-06 09:07] VITALS: PULSE 72
[2024-11-06] MEDS: NIFEdipine 30 MG TAB.ER.24 PO (09:07)
[2024-11-06] MEDS: METOPROLOL TARTRATE 25 MG TABLET PO ×2 (09:07→21:38)
[2024-11-06] MEDS: ACETAMINOPHEN 325 MG TABLET 650 MG PO (09:08)
[2024-11-06] MEDS: THIAMINE HCL 100 MG TABLET PO (09:08)
[2024-11-06] MEDS: MULTIVITAMINS THERAPEUTIC TAB (*BKC) 1 TABLET PO (09:08)
[2024-11-06] MEDS: chlordiazePOXIDE (*CRX) 5 MG CAPSULE PO (09:09)
[2024-11-06] MEDS: APIXABAN 2.5 MG TABLET 5 MG BY MOUTH ×2 (09:09→21:38)
[2024-11-06] MEDS: PANTOPRAZOLE 40 MG TABLET PO (09:09)
[2024-11-06] MEDS: TORSEMIDE 10 MG TABLET PO (09:10)
[2024-11-06] MEDS: EZETIMIBE 10 MG TABLET PO (09:10)
[2024-11-06] MEDS: FOLIC ACID 1 MG TABLET PO (09:10)
[2024-11-06 09:14] LABS: Basophils Absolute Auto 0.04 K/mm3 (0.00-0.10); Basophils Percent Auto 0.9 % (0.0-1.0); Eosinophils Percent Auto 6.9 % (1.0-6.0); Immature Granulocyte Absolute 0.02 K/mm3 (0.00-0.00); Immature Granulocyte Percent A 0.5 % (0.0-0.0); Lymphocytes Absolute Auto 1.23 K/mm3 (1.10-4.50); Lymphocytes Percent Auto 28.2 % (18.0-42.0); Mean Corpuscular HGB Conc 32.6 g/dL (32-36); Mean Corpuscular Hemoglobin 33.2 pg (27.0-31.0); Mean Corpuscular Volume 101.9 fL (78.0-102.0); Mean Platelet Volume 9.5 fl (8.7-11.0); Monocytes Absolute Auto 0.39 K/mm3 (0.10-0.90); Monocytes Percent Auto 8.9 % (2.0-11.0); Neutrophils Absolute Auto 2.38 K/mm3 (1.70-7.20); Neutrophils Percent Auto 54.6 % (50.0-70.0); Platelet Count Result 250 K/mm3 (150-420); Red Blood Count 4.22 M/mm3 (4.70-6.10); Red Cell Distribution Width 12.1 % (11.6-14.4); White Blood Count 4.4 K/mm3 (4.8-10.8)
--- NOTE | 2024-11-06 09:28 | P.PNIM_ITS ---
Progress Note: A&P Assessment and Plan (1) Unsteady gait: Code(s): R26.81 - Unsteadiness on feet Status: Acute Assessment and Plan: * Continue PT and OT * Case coordination following * Care conference scheduled for this Tuesday * Possibly will require fci placement (2) Pneumonia: Qualifiers: Laterality: left Lung location: lower lobe of lung Pneumonia type: due to unspecified organism Qualified Code(s): J18.9 - Pneumonia, unspecified organism Code(s): J18.9 - Pneumonia, unspecified organism Status: Acute Assessment and Plan: * CXR today still showing left perihilar infiltrates representing atelectasis vrs pneumonia * He finished a course of antibiotics already for pneumonia * WBC 4.4, he is currently on room air. He does not appear to be in any acute distress. Will hold off on further antibiotics * encourage incentive spirometer more often (3) Closed rib fracture: Qualifiers: Encounter type: initial encounter Laterality: right Rib fracture type: multiple ribs Qualified Code(s): S22.41XA - Multiple fractures of ribs, right side, initial encounter for closed fracture Code(s): S22.39XA - Fracture of one rib, unspecified side, initial encounter for closed fracture Status: Acute Assessment and Plan: * new and old rib fractures bilateral * patient with multiple falls per ex- * fall secondary to patient's alcoholism * Continue incentive spirometry * Continue pain control * Continue PT and OT * pillow brace for cough (4) Alcoholism: Code(s): F10.20 - Alcohol dependence, uncomplicated Status: Acute Assessment and Plan: * No withdrawal seen * CLibrium discontinued * Continue folic acid, thiamine, multivitamins * care coordination following (5) A-fib: Qualifiers: Atrial fibrillation type: unspecified Qualified Code(s): I48.91 - Unspecified atrial fibrillation Code(s): I48.91 - Unspecified atrial fibrillation Status: Acute Assessment and Plan: * Continue metoprolol and Eliquis (6) CAD (coronary artery disease): Code(s): I25.10 - Atherosclerotic heart disease of [place] coronary artery without angina pectoris Status: Acute Assessment and Plan: * previous history of CT with stents * Continue Eliquis and atorvastatin (7) Hypertension: Code(s): I10 - Essential (primary) hypertension Status: Acute Assessment and Plan: * BP reviewed stable * Continue metoprolol and nifedipine (8) Hyperlipidemia: Code(s): E78.5 - Hyperlipidemia, unspecified Status: Acute Assessment and Plan: * Continue atorvastatin (9) Ascending aorta dilatation: Code(s): I77.810 - Thoracic aortic ectasia Status: Acute Assessment and Plan: * CTA showed 4.7 cm ascending aorta * will need follow-up outpatient * keep BP controlled * avoid fluoroquinolones if needing antibiotics (10) Hypomagnesemia: Code(s): E83.42 - Hypomagnesemia Status: Acute Assessment and Plan: * Continue Mag oxide Time Spent With Patient Time with patient: 25 - 35 minutes Subjective Date/time seen: 11/06/24 09:28 Interval history: Patient denies any new complaints today. Labs and chest x-ray reviewed. Review of Systems Review of Systems: All systems reviewed & are unremarkable except as noted in HPI and below Exam Narrative: General: In no acute distress, well nourished Cardiac: Normal S1 and S2. No murmur, gallops or friction rubs, peripheral pulses intact. Respiratory: Crackles noted left lung, no adventitious lung sounds, currently on room air Gastrointestinal: soft, non-distended, non-tender, normoactive bowel sounds. : voiding without difficulty. Neuro: Alert and oriented x4 Objective Data Vital Signs Vital Signs: Vital Signs - 24 hr 11/05/24 16:00 11/05/24 21:04 11/06/24 00:00 Temperature 96.8 F L 97.8 F Pulse Rate 63 80 77 Respiratory Rate 16 16 Blood Pressure 124/71 115/65 Pulse Oximetry 96 93 Oxygen Delivery Room Air Room Air 11/06/24 08:00 11/06/24 08:00 11/06/24 09:07 Temperature 96.8 F L Pulse Rate 72 72 72 Respiratory Rate 16 16 Blood Pressure 135/78 Pulse Oximetry 94 94 Oxygen Delivery Room Air Room Air Intake/Output Intake/Output: Intake & Output 11/03/24 11/04/24 11/05/24 11/06/24 23:59 23:59 23:59 23:59 Intake Total 940 1490 1300 400 Output Total 600 650 100 Balance 672 822 8216 400 Meds/Results Medications: Active Medications Generic Name Dose Route Start Last Admin Trade Name Freq PRN Reason Stop Dose Admin Acetaminophen 650 mg 10/27/24 14:31 11/06/24 09:08 Acetaminophen 325 Mg Tablet PO 650 mg Q4H PRN Administration Mild Pain (1-3) or Fever Hydrocodone Bitart/Acetaminophen 1 tab 10/27/24 14:34 Hydrocodone/Acetaminophen (*Crx) 10-325 Mg Tablet PO Q8H PRN pain Apixaban 5 mg 10/27/24 21:00 11/06/24 09:09 Apixaban 2.5 Mg Tablet BY MOUTH 5 mg Q12HR REBEKAH Administration Atorvastatin Calcium 80 mg 10/28/24 09:00 11/06/24 09:06 Atorvastatin 40 Mg Tablet PO 80 mg DAILY REBEKAH Administration Chlordiazepoxide HCl 5 mg 11/04/24 09:00 11/06/24 09:09 Chlordiazepoxide (*Crx) 5 Mg Capsule PO 5 mg DAILY REBEKAH Administration Duloxetine HCl 30 mg 10/28/24 09:00 11/06/24 09:06 Duloxetine Hcl 30 Mg Capsule.Dr PO 30 mg DAILY REBEKAH Administration Ezetimibe 10 mg 10/28/24 09:00 11/06/24 09:10 Ezetimibe 10 Mg Tablet PO 10 mg DAILY REBEKAH Administration Folic Acid 1 mg 10/28/24 09:00 11/06/24 09:10 Folic Acid 1 Mg Tablet PO 1 mg DAILY REBEKAH Administration Magnesium Oxide 400 mg 10/27/24 17:00 11/06/24 09:06 Magnesium Oxide 400 Mg Tablet PO 400 mg BID REBEKAH Administration Metoprolol Tartrate 25 mg 10/27/24 21:00 11/06/24 09:07 Metoprolol Tartrate 25 Mg Tablet PO 25 mg Q12HR REBEKAH Administration Miscellaneous Information 1 each 11/05/24 00:01 Order Clarification (Please Renew [place] Order; It Will 11/06) XX 12/05/24 00:00 [facility]IFY [facility] Multivitamins Therapeutic 1 tablet 10/28/24 09:00 11/06/24 09:08 Multivitamins Therapeutic Tab (*Bkc) PO 1 tablet QAM REBEKAH Administration Nifedipine 30 mg 10/28/24 09:00 11/06/24 09:07 Nifedipine 30 Mg Tab.Er.24 PO 30 mg DAILY REBEKAH Administration (Fenofibric Acid ( 45 mg 10/28/24 09:00 11/06/24 09:06 Choline) 45 Mg PO 11/27/24 08:59 45 mg Capsule,Delayed DAILY REBEKAH Administration Release(Dr/Ec)) Ondansetron HCl 4 mg 10/27/24 14:35 11/05/24 11:44 Ondansetron Hcl Odt 4 Mg Tablet PO 4 mg Q6H PRN Administration Nausea And Vomiting Pantoprazole Sodium 40 mg 10/28/24 09:00 11/06/24 09:09 Pantoprazole 40 Mg Tablet PO 40 mg QAM REBEKAH Administration Thiamine HCl 100 mg 10/28/24 09:00 11/06/24 09:08 Thiamine Hcl 100 Mg Tablet PO 100 mg QAM REBEKAH Administration Torsemide 10 mg 10/28/24 09:00 11/06/24 09:10 Torsemide 10 Mg Tablet PO 10 mg DAILY REBEKAH Administration Trazodone HCl 50 mg 10/27/24 14:34 11/05/24 21:04 Trazodone Hcl 50 Mg Tablet PO 50 mg HS PRN Administration Insomnia Radiology Results: ITS Impressions Chest X-Ray 11/06/24 09:20 Impression: 1: Left perihilar infiltrates which may represent atelectasis or developing pneumonia. Labs Labs: Laboratory Results - last 24 hr 11/06/24 09:02 WBC 4.4 L RBC 4.22 L Hgb 14.0 Hct 43.0 MCV 101.9 MCH 33.2 H MCHC 32.6 RDW 12.1 Plt Count 250 MPV 9.5 Immature Gran % (Auto) 0.5 H Neut % (Auto) 54.6 Lymph % (Auto) 28.2 [place] % (Auto) 8.9 Eos % (Auto) 6.9 H Baso % (Auto) 0.9 Lymph # (Auto) 1.23 [place] # (Auto) 0.39 Eos # (Auto) 0.30 Baso # (Auto) 0.04 Abs Immat Gran (auto) 0.02 H Absolute Neuts (auto) 2.38 Absolute Nucleated RBC 0.00 Nucleated RBC % 0.0 Imaging Radiologist's impression: XR chest 1V portable 11/06/2024 09:09 Indication: Shortness of breath Procedure: AP portable chest Comparison: 10/23/2024 Findings: There are left perihilar infiltrates. Shallow inspiration. Healed right rib fractures with adjacent pleural thickening. No edema or pneumothorax. No significant effusion. Impression: 1: Left perihilar infiltrates which may represent atelectasis or developing pneumonia. Reviewed, dictated and finalized at location B. ASSESSOR Quality VTE Prophylaxis VTE prophylaxis: pharmacologic ordered
[2024-11-06 09:35] LABS: Alanine Aminotransferase 34 U/L (16-63); Alkaline Phosphatase 73 U/L (46-116); Anion Gap 4 mmol/L (4-12); Aspartate Amino Transferase 36 U/L (15-37); Bilirubin,Total 0.5 mg/dL (0.00-1.00); Blood Urea Nitrogen 38 mg/dL (7-18); Calcium 9.5 mg/dL (8.5-10.1); Carbon Dioxide 32 mmol/L (21-32); Chloride 103 mmol/L (98-108); Estimated CRCL calculation 29 ml/min; Estimated Glomerular Filt Rate 28; Glucose 114 mg/dL (70-99); Osmolality Calculated 298 mOsm/kg (285-295); Potassium 4.8 mmol/L (3.5-5.1); Sodium 139 mmol/L (136-145); Total Protein 7.2 g/dL (6.4-8.2)
--- NOTE | 2024-11-06 10:14 | PC.NURSE ---
Informed HAMMERER, Hensley order getting ready to and that patient had not taken it in some time. Verbal order to discontinue Hensley at this time. Discontinue order placed.
--- NOTE | 2024-11-06 13:29 | PC.NURSE ---
Spoke with PET CARE WORKER r/t GFR results, No new order but educated nursed to push fluids at this time.
[2024-11-06 16:00] VITALS: BP 112/65; PULSE 86; RESP 16; TEMP 36.4; O2SAT 95
[2024-11-06 21:38] VITALS: PULSE 82
[2024-11-06] MEDS: traZODone HCL 50 MG TABLET PO (21:38)
[2024-11-07] VITALS: BP 125/76; PULSE 77; RESP 16; TEMP 36.1; O2SAT 93
[2024-11-07 08:00] VITALS: BP 113/66; PULSE 95; RESP 18; TEMP 36.2; O2SAT 98
--- NOTE | 2024-11-07 08:09 | P.PNIM_ITS ---
Progress Note: A&P Assessment and Plan (1) Unsteady gait: Code(s): R26.81 - Unsteadiness on feet Status: Acute Assessment and Plan: * Continue PT and OT * Case coordination following * Care conference scheduled for this Tuesday * Possibly will require intermediate placement (2) Pneumonia: Qualifiers: Laterality: left Lung location: lower lobe of lung Pneumonia type: due to unspecified organism Qualified Code(s): J18.9 - Pneumonia, unspecified organism Code(s): J18.9 - Pneumonia, unspecified organism Status: Acute Assessment and Plan: * CXR showing left perihilar infiltrates representing atelectasis vrs pneumonia * He finished a course of antibiotics already for pneumonia * WBC 5.5 today still asymptomatic today, no cough, SOB, or fever * encourage incentive spirometer more often (3) Closed rib fracture: Qualifiers: Encounter type: initial encounter Laterality: right Rib fracture type: multiple ribs Qualified Code(s): S22.41XA - Multiple fractures of ribs, right side, initial encounter for closed fracture Code(s): S22.39XA - Fracture of one rib, unspecified side, initial encounter for closed fracture Status: Acute Assessment and Plan: * new and old rib fractures bilateral * patient with multiple falls per ex- * fall secondary to patient's alcoholism * Continue incentive spirometry * Continue pain control * Continue PT and OT * pillow brace for cough (4) Alcoholism: Code(s): F10.20 - Alcohol dependence, uncomplicated Status: Acute Assessment and Plan: * No withdrawal seen * CLibrium discontinued * Continue folic acid, thiamine, multivitamins * care coordination following (5) A-fib: Qualifiers: Atrial fibrillation type: unspecified Qualified Code(s): I48.91 - Unspecified atrial fibrillation Code(s): I48.91 - Unspecified atrial fibrillation Status: Acute Assessment and Plan: * Continue metoprolol and Eliquis (6) CAD (coronary artery disease): Code(s): I25.10 - Atherosclerotic heart disease of [place] coronary artery without angina pectoris Status: Acute Assessment and Plan: * previous history of OR with stents * Continue Eliquis and atorvastatin (7) Hypertension: Code(s): I10 - Essential (primary) hypertension Status: Acute Assessment and Plan: * BP reviewed stable * Continue metoprolol and nifedipine (8) Hyperlipidemia: Code(s): E78.5 - Hyperlipidemia, unspecified Status: Acute Assessment and Plan: * Continue atorvastatin (9) Ascending aorta dilatation: Code(s): I77.810 - Thoracic aortic ectasia Status: Acute Assessment and Plan: * CTA showed 4.7 cm ascending aorta * will need follow-up outpatient * keep BP controlled * avoid fluoroquinolones if needing antibiotics (10) Hypomagnesemia: Code(s): E83.42 - Hypomagnesemia Status: Acute Assessment and Plan: * Continue Mag oxide Time Spent With Patient Time with patient: 15 - 25 minutes Subjective Date/time seen: 11/07/24 08:09 Interval history: Patient denies any new events overnight. He was reported to have choked on some food 2 days ago. We repeated an x-ray yesterday that shown a possible infiltrate left perihilar area however he has remained asymptomatic. He denies SOB or cough. Labs reviewed. Review of Systems Review of Systems: All systems reviewed & are unremarkable except as noted in HPI and below Exam Narrative: General: In no acute distress, well nourished Cardiac: Normal S1 and S2. No murmur, gallops or friction rubs, peripheral pulses intact. Respiratory: Lungs clear, no adventitious lung sounds, currently on room air Gastrointestinal: soft, non-distended, non-tender, normoactive bowel sounds. : voiding without difficulty. Neuro: Alert and oriented x4 Objective Data Vital Signs Vital Signs: Vital Signs - 24 hr 11/06/24 09:07 11/06/24 16:00 11/06/24 21:38 Temperature 97.5 F L Pulse Rate 72 86 82 Respiratory Rate 16 Blood Pressure 112/65 Pulse Oximetry 95 Oxygen Delivery Room Air 11/07/24 00:00 Temperature 97.0 F L Pulse Rate 77 Respiratory Rate 16 Blood Pressure 125/76 Pulse Oximetry 93 Oxygen Delivery Room Air Intake/Output Intake/Output: Intake & Output 11/04/24 11/05/24 11/06/24 11/07/24 23:59 23:59 23:59 23:59 Intake Total 1490 1300 1420 300 Output Total 650 100 600 450 Balance 840 1200 820 -150 Meds/Results Medications: Active Medications Generic Name Dose Route Start Last Admin Trade Name Freq PRN Reason Stop Dose Admin Acetaminophen 650 mg 10/27/24 14:31 11/06/24 09:08 Acetaminophen 325 Mg Tablet PO 650 mg Q4H PRN Administration Mild Pain (1-3) or Fever Apixaban 5 mg 10/27/24 21:00 11/06/24 21:38 Apixaban 2.5 Mg Tablet BY MOUTH 5 mg Q12HR REBEKAH Administration Atorvastatin Calcium 80 mg 10/28/24 09:00 11/06/24 09:06 Atorvastatin 40 Mg Tablet PO 80 mg DAILY REBEKAH Administration Duloxetine HCl 30 mg 10/28/24 09:00 11/06/24 09:06 Duloxetine Hcl 30 Mg Capsule.Dr PO 30 mg DAILY REBEKAH Administration Ezetimibe 10 mg 10/28/24 09:00 11/06/24 09:10 Ezetimibe 10 Mg Tablet PO 10 mg DAILY REBEKAH Administration Folic Acid 1 mg 10/28/24 09:00 11/06/24 09:10 Folic Acid 1 Mg Tablet PO 1 mg DAILY REBEKAH Administration Magnesium Oxide 400 mg 10/27/24 17:00 11/06/24 16:57 Magnesium Oxide 400 Mg Tablet PO 400 mg BID REBEKAH Administration Metoprolol Tartrate 25 mg 10/27/24 21:00 11/06/24 21:38 Metoprolol Tartrate 25 Mg Tablet PO 25 mg Q12HR REBEKAH Administration Multivitamins Therapeutic 1 tablet 10/28/24 09:00 11/06/24 09:08 Multivitamins Therapeutic Tab (*Bkc) PO 1 tablet QAM REBEKAH Administration Nifedipine 30 mg 10/28/24 09:00 11/06/24 09:07 Nifedipine 30 Mg Tab.Er.24 PO 30 mg DAILY REBEKAH Administration (Fenofibric Acid ( 45 mg 10/28/24 09:00 11/06/24 09:06 Choline) 45 Mg PO 11/27/24 08:59 45 mg Capsule,Delayed DAILY REBEKAH Administration Release(Dr/Ec)) Ondansetron HCl 4 mg 10/27/24 14:35 11/05/24 11:44 Ondansetron Hcl Odt 4 Mg Tablet PO 4 mg Q6H PRN Administration Nausea And Vomiting Pantoprazole Sodium 40 mg 10/28/24 09:00 11/06/24 09:09 Pantoprazole 40 Mg Tablet PO 40 mg QAM REBEKAH Administration Thiamine HCl 100 mg 10/28/24 09:00 11/06/24 09:08 Thiamine Hcl 100 Mg Tablet PO 100 mg QAM REBEKAH Administration Torsemide 10 mg 10/28/24 09:00 11/06/24 09:10 Torsemide 10 Mg Tablet PO 10 mg DAILY REBEKAH Administration Trazodone HCl 50 mg 10/27/24 14:34 11/06/24 21:38 Trazodone Hcl 50 Mg Tablet PO 50 mg HS PRN Administration Insomnia Radiology Results: ITS Impressions Chest X-Ray 11/06/24 09:20 Impression: 1: Left perihilar infiltrates which may represent atelectasis or developing pneumonia. Labs Labs: Laboratory Results - last 24 hr 11/06/24 09:02 WBC 4.4 L RBC 4.22 L Hgb 14.0 Hct 43.0 MCV 101.9 MCH 33.2 H MCHC 32.6 RDW 12.1 Plt Count 250 MPV 9.5 Immature Gran % (Auto) 0.5 H Neut % (Auto) 54.6 Lymph % (Auto) 28.2 [place] % (Auto) 8.9 Eos % (Auto) 6.9 H Baso % (Auto) 0.9 Lymph # (Auto) 1.23 [place] # (Auto) 0.39 Eos # (Auto) 0.30 Baso # (Auto) 0.04 Abs Immat Gran (auto) 0.02 H Absolute Neuts (auto) 2.38 Absolute Nucleated RBC 0.00 Nucleated RBC % 0.0 Sodium 139 Potassium 4.8 Chloride 103 Carbon Dioxide 32 Anion Gap 4 BUN 38 H Creatinine 2.30 H Estim Creat Clear Calc 29 Estimated GFR 28 L Glucose 114 H Calculated Osmolality 298 H Calcium 9.5 Total Bilirubin 0.5 AST 36 ALT 34 Alkaline Phosphatase 73 Total Protein 7.2 Albumin 3.0 L Imaging Radiologist's impression: XR chest 1V portable 11/06/2024 09:09 Indication: Shortness of breath Procedure: AP portable chest Comparison: 10/23/2024 Findings: There are left perihilar infiltrates. Shallow inspiration. Healed right rib fractures with adjacent pleural thickening. No edema or pneumothorax. No significant effusion. Impression: 1: Left perihilar infiltrates which may represent atelectasis or developing pneumonia. Reviewed, dictated and finalized at location B. ERSAL GR[employer] Quality VTE Prophylaxis VTE prophylaxis: pharmacologic ordered
[2024-11-07 08:33] LABS: Basophils Absolute Auto 0.05 K/mm3 (0.00-0.10); Basophils Percent Auto 0.9 % (0.0-1.0); Eosinophils Absolute Auto 0.22 K/mm3 (0.02-0.50); Hematocrit 41.4 % (37.0-46.0); Hemoglobin 13.9 g/dL (12.4-15.3); Immature Granulocyte Absolute 0.01 K/mm3 (0.00-0.00); Immature Granulocyte Percent A 0.2 % (0.0-0.0); Lymphocytes Absolute Auto 1.21 K/mm3 (1.10-4.50); Lymphocytes Percent Auto 22.2 % (18.0-42.0); Mean Corpuscular HGB Conc 33.6 g/dL (32-36); Mean Corpuscular Hemoglobin 34.2 pg (27.0-31.0); Mean Corpuscular Volume 101.7 fL (78.0-102.0); Mean Platelet Volume 9.3 fl (8.7-11.0); Monocytes Absolute Auto 0.48 K/mm3 (0.10-0.90); Monocytes Percent Auto 8.8 % (2.0-11.0); Neutrophils Absolute Auto 3.49 K/mm3 (1.70-7.20); Neutrophils Percent Auto 63.9 % (50.0-70.0); Platelet Count Result 227 K/mm3 (150-420); Red Blood Count 4.07 M/mm3 (4.70-6.10); Red Cell Distribution Width 12.1 % (11.6-14.4); White Blood Count 5.5 K/mm3 (4.8-10.8)
[2024-11-07 08:44] VITALS: PULSE 90
[2024-11-07] MEDS: TORSEMIDE 10 MG TABLET PO (08:44)
[2024-11-07] MEDS: METOPROLOL TARTRATE 25 MG TABLET PO ×2 (08:44→20:33)
[2024-11-07] MEDS: APIXABAN 2.5 MG TABLET 5 MG BY MOUTH ×2 (08:44→20:33)
[2024-11-07] MEDS: MAGNESIUM OXIDE 400 MG TABLET PO ×2 (08:44→17:02)
[2024-11-07] MEDS: PANTOPRAZOLE 40 MG TABLET PO (08:44)
[2024-11-07] MEDS: NIFEdipine 30 MG TAB.ER.24 PO (08:44)
[2024-11-07] MEDS: THIAMINE HCL 100 MG TABLET PO (08:44)
[2024-11-07] MEDS: EZETIMIBE 10 MG TABLET PO (08:44)
[2024-11-07] MEDS: FENOFIBRIC ACID 45 MG 45 EACH PO (08:44)
[2024-11-07] MEDS: ATORVASTATIN 40 MG TABLET 80 MG PO (08:44)
[2024-11-07] MEDS: FOLIC ACID 1 MG TABLET PO (08:44)
[2024-11-07] MEDS: MULTIVITAMINS THERAPEUTIC TAB (*BKC) 1 TABLET PO (08:44)
[2024-11-07] MEDS: DULoxetine HCL 30 MG CAPSULE.DR PO (08:45)
[2024-11-07] MEDS: ACETAMINOPHEN 325 MG TABLET 650 MG PO (08:45)
[2024-11-07 09:03] LABS: Alanine Aminotransferase 33 U/L (16-63); Albumin Level 3.1 g/dL (3.4-5.0); Alkaline Phosphatase 72 U/L (46-116); Anion Gap 3 mmol/L (4-12); Aspartate Amino Transferase 34 U/L (15-37); Bilirubin,Total 0.4 mg/dL (0.00-1.00); Blood Urea Nitrogen 41 mg/dL (7-18); Calcium 9.5 mg/dL (8.5-10.1); Carbon Dioxide 32 mmol/L (21-32); Chloride 101 mmol/L (98-108); Estimated CRCL calculation 26 ml/min; Estimated Glomerular Filt Rate 25; Glucose 108 mg/dL (70-99); Osmolality Calculated 293 mOsm/kg (285-295); Sodium 136 mmol/L (136-145); Total Protein 7.3 g/dL (6.4-8.2)
[2024-11-07 16:00] VITALS: BP 115/59; PULSE 82; RESP 16; TEMP 36.3; O2SAT 98
[2024-11-07 20:33] VITALS: PULSE 75
[2024-11-07] MEDS: traZODone HCL 50 MG TABLET PO (20:33)
[2024-11-07 23:57] VITALS: BP 116/60; PULSE 80; RESP 15; TEMP 36.3; O2SAT 94
[2024-11-08 08:00] VITALS: BP 120/60; PULSE 80; RESP 20; TEMP 36.8; O2SAT 97
[2024-11-08] MEDS: FENOFIBRIC ACID 45 MG 45 EACH PO (09:05)
[2024-11-08] MEDS: MAGNESIUM OXIDE 400 MG TABLET PO ×2 (09:05→18:24)
[2024-11-08 09:06] VITALS: PULSE 68
[2024-11-08] MEDS: EZETIMIBE 10 MG TABLET PO (09:06)
[2024-11-08] MEDS: METOPROLOL TARTRATE 25 MG TABLET PO ×2 (09:06→20:44)
[2024-11-08] MEDS: THIAMINE HCL 100 MG TABLET PO (09:06)
[2024-11-08] MEDS: NIFEdipine 30 MG TAB.ER.24 PO (09:06)
[2024-11-08] MEDS: ATORVASTATIN 40 MG TABLET 80 MG PO (09:06)
[2024-11-08] MEDS: APIXABAN 2.5 MG TABLET 5 MG BY MOUTH ×2 (09:06→20:44)
[2024-11-08] MEDS: MULTIVITAMINS THERAPEUTIC TAB (*BKC) 1 TABLET PO (09:06)
[2024-11-08] MEDS: DULoxetine HCL 30 MG CAPSULE.DR PO (09:06)
[2024-11-08] MEDS: PANTOPRAZOLE 40 MG TABLET PO (09:07)
[2024-11-08] MEDS: FOLIC ACID 1 MG TABLET PO (09:07)
[2024-11-08] MEDS: TORSEMIDE 10 MG TABLET PO (09:07)
[2024-11-08] MEDS: ALPRAZolam (*CRX) 0.25 MG TABLET PO (13:18)
[2024-11-08 16:35] VITALS: BP 125/76; PULSE 77; RESP 16; TEMP 36.6; O2SAT 96
[2024-11-08 20:44] VITALS: PULSE 85
[2024-11-08] MEDS: ONDANSETRON HCL ODT 4 MG TABLET PO (20:46)
[2024-11-08] MEDS: traZODone HCL 50 MG TABLET PO (20:46)
[2024-11-09] VITALS: BP 131/79; PULSE 89; RESP 14; TEMP 36.2; O2SAT 97
[2024-11-09 08:00] VITALS: BP 139/89; PULSE 98; RESP 12; TEMP 36.1; O2SAT 98
[2024-11-09] MEDS: PANTOPRAZOLE 40 MG TABLET PO (09:35)
[2024-11-09] MEDS: FENOFIBRIC ACID 45 MG 45 EACH PO (09:57)
[2024-11-09] MEDS: EZETIMIBE 10 MG TABLET PO (09:58)
[2024-11-09] MEDS: ATORVASTATIN 40 MG TABLET 80 MG PO (09:58)
[2024-11-09] MEDS: TORSEMIDE 10 MG TABLET PO (10:00)
[2024-11-09] MEDS: MAGNESIUM OXIDE 400 MG TABLET PO (10:00)
[2024-11-09] MEDS: NIFEdipine 30 MG TAB.ER.24 PO (10:01)
[2024-11-09] MEDS: DULoxetine HCL 30 MG CAPSULE.DR PO (10:01)
[2024-11-09] MEDS: THIAMINE HCL 100 MG TABLET PO (10:01)
[2024-11-09] MEDS: MULTIVITAMINS THERAPEUTIC TAB (*BKC) 1 TABLET PO (10:01)
[2024-11-09 10:02] VITALS: PULSE 98
[2024-11-09] MEDS: FOLIC ACID 1 MG TABLET PO (10:02)
[2024-11-09] MEDS: METOPROLOL TARTRATE 25 MG TABLET PO (10:02)
[2024-11-09] MEDS: APIXABAN 2.5 MG TABLET 5 MG BY MOUTH (10:02)
[2024-11-09] MEDS: chlordiazePOXIDE (*CRX) 10 MG CAPSULE PO (10:30)
--- NOTE | 2024-11-09 12:28 | P.DS_ITS ---
DS: Admitting Diagnosis Discharge Date 11/09/2024 Admitting Diagnosis deconditioned/ unsteady gait/ rehabilitation DS: Discharge Diagnosis Discharge Diagnosis (1) Unsteady gait: Code(s): R26.81 - Unsteadiness on feet Status: Acute Assessment and Plan: * Continue PT and OT * walker when ambulating (2) Pneumonia: Qualifiers: Laterality: left Lung location: lower lobe of lung Pneumonia type: due to unspecified organism Qualified Code(s): J18.9 - Pneumonia, unspecified organism Code(s): J18.9 - Pneumonia, unspecified organism Status: Acute Assessment and Plan: Resolved (3) Closed rib fracture: Qualifiers: Encounter type: initial encounter Laterality: right Rib fracture type: multiple ribs Qualified Code(s): S22.41XA - Multiple fractures of ribs, right side, initial encounter for closed fracture Code(s): S22.39XA - Fracture of one rib, unspecified side, initial encounter for closed fracture Status: Acute Assessment and Plan: * new and old rib fractures bilateral * patient with multiple falls per ex- * Continue incentive spirometry * Continue pain control * Continue PT and OT * pillow brace for cough (4) Alcoholism: Code(s): F10.20 - Alcohol dependence, uncomplicated Status: Acute Assessment and Plan: * No withdrawal seen * Librium discontinued * Continue folic acid, thiamine, multivitamins (5) A-fib: Qualifiers: Atrial fibrillation type: unspecified Qualified Code(s): I48.91 - Unspecified atrial fibrillation Code(s): I48.91 - Unspecified atrial fibrillation Status: Acute Assessment and Plan: * Continue metoprolol and Eliquis (6) CAD (coronary artery disease): Code(s): I25.10 - Atherosclerotic heart disease of [place] coronary artery without angina pectoris Status: Acute Assessment and Plan: * previous history of NV with stents * Continue Eliquis and atorvastatin (7) Hypertension: Code(s): I10 - Essential (primary) hypertension Status: Acute Assessment and Plan: * BP reviewed stable * Continue metoprolol and nifedipine (8) Hyperlipidemia: Code(s): E78.5 - Hyperlipidemia, unspecified Status: Acute Assessment and Plan: * Continue atorvastatin (9) Ascending aorta dilatation: Code(s): I77.810 - Thoracic aortic ectasia Status: Acute Assessment and Plan: * CTA showed 4.7 cm ascending aorta * will need follow-up outpatient * keep BP controlled * avoid fluoroquinolones if needing antibiotics (10) Hypomagnesemia: Code(s): E83.42 - Hypomagnesemia Status: Acute Assessment and Plan: * Continue Mag oxide Plan Disposition: Discharged to prison facility DS: Summary Hospital Course Reason for hospitalization: deconditioned/ unsteady gait/ rehabilitation Hospital Course: Patient was a 69-year-old male who was admitted to [facility] bed for rehab after hospitalization for pneumonia and alcohol withdrawal. Patient has known past medical history HLD, NV with 2 stents, atrial fibrillation,hypertension, and alcoholism. patient was then admitted and treated for pneumonia, AFib with RVR and alcohol withdrawal. during patient's admission he continued to improve with IV antibiotics and was started on Librium for the alcohol withdrawals as well as folic acid, thiamine and multivitamins patient with overall improvement to symptoms remained on room air and pain well controlled for rib fractures. PT/OT had evaluated patient patient continued unsteady gait and concerns for returning home due to frequent falls, patient was agreeable and admitted to [facility] further rehabilitation. Patient's vitals stable and labs unremarkable when discharge to swing bed need to continue Mag oxide b.i.d. due to low Mag of 1.1 which improved to 1.5. patient was provided resources for AA and rehab post discharge. patient had denied any chest pain, nausea/vomiting, abdominal pain, fever, chills but did endorse mild shortness of breath due to rib fractures and weakness. Patient continued to progress with rehab however patient's new cognitive baseline was concerning for patient to return home safely on his own per patient and family was agreed patient would discharge to a prison facility for further rehabilitation. Patient's anus status day discharge in no acute distress family and patient acknowledged and agreed with discharge plan patient discharged to prison facility. Status at Discharge Functional status at discharge: uses cane/walker Overall status at discharge: patient is progressing back to baseline (New baseline) Time Spent with Patient Time attestation: Total time spent providing and/or coordinating discharge services: Time spent: Greater than 30 minutes Exam Narrative: General: In no acute distress, well nourished Cardiac: Normal S1 and S2. No murmur, gallops or friction rubs, peripheral pulses intact. Respiratory: Lungs clear, no adventitious lung sounds, currently on room air Gastrointestinal: soft, non-distended, non-tender, normoactive bowel sounds. : voiding without difficulty. Neuro: Alert and oriented x4 Urinary Catheter: Urinary Catheter: urine with clots DS: Data Imaging Radiologist's impression: XR chest 1V portable 11/06/2024 09:09 Indication: Shortness of breath Procedure: AP portable chest Comparison: 10/23/2024 Findings: There are left perihilar infiltrates. Shallow inspiration. Healed right rib fractures with adjacent pleural thickening. No edema or pneumothorax. No significant effusion. Impression: 1: Left perihilar infiltrates which may represent atelectasis or developing pneumonia. Discharge Plan Discharge Attending physician on discharge: Timothy Monotya Discharging Clinician: Maria Del Rosario Yuen Anticipated Discharge Date/Time: 11/09/24 12:16 Patient Disposition: SNF Activity: unlimited and as tolerated Diet: heart healthy Discharge Instructions: You are being discharged after rehabilitation following a hospital stay for Pneumonia and alcohol withdrawal. I encouraged to continue with year sobriety and continue with physical and occupational therapy. I did prescribe 10 mg Librium take as directed I have attached information and education regarding your diagnosis please review How can you care for yourself at home? ? Keep track of any new symptoms or changes in your symptoms. ? Rest until you feel better. ? Be safe with medicines. Take your medicines exactly as prescribed. Call your doctor if you think you are having a problem with your medicine. ? Do not drive after taking a prescription pain medicine. ? Ensure to follow-up with primary care physician as indicated and provide updated medication list provided to you at discharge. When should you call for help? Call 911 anytime you think you may need emergency care. For example, call if: ? You passed out (lost consciousness). Call your doctor now or seek immediate medical care if: ? You have new symptoms like fever, difficulty breathing, Chest pain, vomiting, or rash. ? You have new or different pain. ? You are confused and are having trouble thinking clearly. ? Your symptoms are getting worse. Watch closely for changes in your health, and be sure to contact your doctor if: ? You do not get better as expected. Patient Instructions: Abuse of Alcohol (DC), Community Acquired Pneumonia (DC), Alcohol Withdrawal (DC), Weakness (DC), Fall Prevention (DC), Alcohol Dependence (DC), Encephalopathy (DC) Patient Language: Spanish Stand Alone Forms: General Discharge Information, Half-Way Discharge Follow-up/Referrals: Mireille,Anen Campos MD [Primary Care Provider] - 4 Weeks Discharge Medications: New acetaminophen 325 mg Tablet 650 mg PO Q4H PRN (Reason: Mild Pain (1-3) Or Fever) Qty: 2 0RF Continued nifedipine 30 mg tablet extended release 24hr 30 mg PO DAILY atorvastatin 80 mg tablet 80 mg PO DAILY torsemide 10 mg tablet 10 mg PO DAILY ezetimibe 10 mg tablet 10 mg PO DAILY duloxetine 30 mg capsule,delayed release(DR/EC) 30 mg PO DAILY fenofibric acid (choline) 45 mg capsule,delayed release(DR/EC) 45 mg PO DAILY hydrocodone-acetaminophen 10-325 mg tablet 1 tablet PO Q8H PRN (Reason: pain) Qty: 20 0RF Rx Instructions: 1/2-1 tab per dose Eliquis 5 mg Tablet 5 mg PO BID Patient Comments: pt gets eliquis samples from Dr. Anne Kendrick's office ([phone], ext [phone]). has been taking since 03/2023 per momo trazodone 50 mg Tablet 50 mg PO HS PRN (Reason: Insomnia) Qty: 1 0RF thiamine HCl (vitamin B1) [Vitamin B-1] 100 mg Tablet 100 mg PO QAM Qty: 1 0RF magnesium oxide 400 mg (241.3 mg magnesium) Tablet 400 mg PO BID Qty: 1 0RF pantoprazole 40 mg Tablet,Delayed Release (Dr/Ec) 40 mg PO QAM Qty: 1 0RF folic acid 1 mg Tablet 1 mg PO DAILY Qty: 1 0RF metoprolol tartrate 25 mg Tablet 25 mg PO Q12HR Qty: 1 0RF multivitamin with folic acid [Thera] 400 mcg Tablet 1 tablet PO QAM Qty: 1 0RF Discontinued chlordiazepoxide HCl 25 mg Capsule 25 mg PO TID Qty: 1 0RF Date of admission: 10/27/24 09:01 Primary Care Provider: Mireille,Anne Campos Admitting Provider: Timothy Montoya Attending physician on admission: Maria Del Rosario Yuen Condition: Stable Quality VTE Prophylaxis VTE prophylaxis: pharmacologic ordered -Patient's previous records reviewed on admission -ER notes reviewed in detail on admission -discussed all findings and current treatment plan with patient/Family/POA -Consultations reviewed for recommendations -Patient's disposition for safe discharge discussed with mental health case manager Dictation performed by [employer] direct speech recognition software, therefore founder variants and typographical errors may occur. Hospitalist MIPS Heart Failure (Exclusion) Patient has history of Heart Transplant or Left Ventricular Assistive Device?: No IF YES, STOP HERE Heart Failure (Qualifier) Patient has current or prior documentation of LVEF less than or equal to 40%, or mod/servere depressed LVSF?: No IF NO, STOP HERE
--- NOTE | 2024-11-09 14:21 | PC.NURSE ---
Pt discharged to [facility]. Report called to Supriya . ME tech arrived and transported pt across the street in . Pt personel items sent with him. Pt condition stable.
--- NOTE | 2024-11-12 09:41 | PC.NURSE ---
[facility] to [facility] for [facility], no questions from NH staff regarding dc instructions
== END 2024-11-09 14:20 | DRG 91 ==
PROVIDERS: Nurse Practitioner Acute Care; Admitting Provider Internal Medicine; PCP Family Medicine; Visit Provider Nurse Practitioner Family
DX: R26.81 Unsteadiness on feet (principal); J18.9 Pneumonia, unspecified organism; I48.20 Chronic atrial fibrillation, unspecified; I25.10 Atherosclerotic heart disease of native coronary artery without angina pectoris; I10 Essential (primary) hypertension; I77.810 Thoracic aortic ectasia; E83.42 Hypomagnesemia; E78.5 Hyperlipidemia, unspecified; R29.6 Repeated falls; F10.20 Alcohol dependence, uncomplicated; S22.41XD Multiple fractures of ribs, right side, subsequent encounter for fracture with routine healing; I25.2 Old myocardial infarction; Z79.01 Long term (current) use of anticoagulants; Z95.5 Presence of coronary angioplasty implant and graft
CPT/HCPCS: 36415; 71045; 80053; 83735; 85025; 85027; 97110; 97161; 97166; 97530; 97535; A9270

== ENCOUNTER 2024-11-16 17:33 | Outpatient (CLI) | payer MEDICARE, SELFPAY ==
[2024-11-16 17:49] LABS: Hematocrit 43.2 % (37.0-46.0); Hemoglobin 14.1 g/dL (12.4-15.3); Mean Corpuscular HGB Conc 32.6 g/dL (32-36); Mean Corpuscular Hemoglobin 32.7 pg (27.0-31.0); Mean Corpuscular Volume 100.2 fL (78.0-102.0); Mean Platelet Volume 9.9 fl (8.7-11.0); Platelet Count Result 200 K/mm3 (150-420); Red Blood Count 4.31 M/mm3 (4.70-6.10); Red Cell Distribution Width 12.1 % (11.6-14.4); White Blood Count 4.9 K/mm3 (4.8-10.8)
[2024-11-16 18:46] LABS: Anion Gap 13 mmol/L (4-12); Blood Urea Nitrogen 62 mg/dL (7-18); Calcium 9.6 mg/dL (8.5-10.1); Carbon Dioxide 27 mmol/L (21-32); Chloride 106 mmol/L (98-108); Estimated Glomerular Filt Rate 21; Glucose 101 mg/dL (70-99); Magnesium 1.9 mg/dL (1.8-2.4); Osmolality Calculated 319 mOsm/kg (285-295); Potassium 4.7 mmol/L (3.5-5.1); Sodium 146 mmol/L (136-145)
== END 2024-11-16 17:34 | disposition home or self-care (01) ==
LOC: CHSLAB 17:34
PROVIDERS: PCP Family Medicine; Visit Provider Family Medicine
DX: U07.1 COVID-19 (principal)
CPT/HCPCS: 36415; 80048; 83735; 85027

== ENCOUNTER 2024-11-19 09:03 | Outpatient (CLI) | payer MEDICARE, SELFPAY ==
[2024-11-19 09:47] LABS: Alanine Aminotransferase 30 U/L (16-63); Albumin Level 3.3 g/dL (3.4-5.0); Alkaline Phosphatase 74 U/L (46-116); Ammonia 14 umol/L (11-32); Anion Gap 7 mmol/L (4-12); Aspartate Amino Transferase 30 U/L (15-37); Bilirubin,Total 0.7 mg/dL (0.00-1.00); Blood Urea Nitrogen 60 mg/dL (7-18); Calcium 9.7 mg/dL (8.5-10.1); Carbon Dioxide 28 mmol/L (21-32); Chloride 105 mmol/L (98-108); Estimated Glomerular Filt Rate 21; Glucose 139 mg/dL (70-99); Osmolality Calculated 308 mOsm/kg (285-295); Sodium 140 mmol/L (136-145); Total Protein 7.6 g/dL (6.4-8.2)
== END 2024-11-19 09:04 | disposition home or self-care (01) ==
LOC: CHSLAB 09:04
PROVIDERS: PCP Family Medicine; Visit Provider Family Medicine
DX: F10.20 Alcohol dependence, uncomplicated (principal); R41.0 Disorientation, unspecified
CPT/HCPCS: 36415; 80053; 82140

== ENCOUNTER 2024-11-20 10:29 | Outpatient (CLI) | payer MEDICARE, SELFPAY ==
[2024-11-20 10:46] LABS: Hemoglobin 14.8 g/dL (12.4-15.3); Mean Corpuscular HGB Conc 32.9 g/dL (32-36); Mean Corpuscular Hemoglobin 32.9 pg (27.0-31.0); Mean Platelet Volume 9.5 fl (8.7-11.0); Platelet Count Result 242 K/mm3 (150-420); Red Cell Distribution Width 12.1 % (11.6-14.4); White Blood Count 5.1 K/mm3 (4.8-10.8)
[2024-11-20 10:53] LABS: Add Urine Microscopic? YES; Appearance Urine Clear (Clear); Bilirubin Urine Negative (Negative); Blood Urine Negative (Negative); Color Urine Yellow (Yellow); Glucose Urine UA Negative (Negative); Ketones Urine Negative (Negative); Leukocyte Esterase Ur Negative (Negative); Nitrate Urine Negative (Negative); Protein Urine 2+ (Negative); Specific Grav Ur 1.025 (1.010-1.020); Urobilinogen Urine 0.2 mg/dL (0.2-1.0)
[2024-11-20 11:06] LABS: Bacteria Urine 4+ /hpf; RBC Urine None seen /hpf (0-2); Squamous Epithelial Cell Urine Rare /hpf (Few); WBC Urine None seen /hpf (0-3)
[2024-11-20 11:12] LABS: Creatinine Urine 209.79 mg/dL (40-278); MALB Creatinine Ratio 190.6 mg/g (0-30); Microalbumin Urine Random > 400.0 mg/L
[2024-11-20 11:32] LABS: Alanine Aminotransferase 38 U/L (16-63); Albumin Level 3.7 g/dL (3.4-5.0); Alkaline Phosphatase 75 U/L (46-116); Anion Gap 10 mmol/L (4-12); Aspartate Amino Transferase 32 U/L (15-37); Bilirubin Direct 0.2 mg/dL (0-0.2); Bilirubin,Total 0.7 mg/dL (0.00-1.00); Blood Urea Nitrogen 56 mg/dL (7-18); Calcium 9.9 mg/dL (8.5-10.1); Carbon Dioxide 28 mmol/L (21-32); Chloride 107 mmol/L (98-108); Cholesterol 122 mg/dL (0-200); Estimated Glomerular Filt Rate 24; Glucose 180 mg/dL (70-99); HDL Direct 35 mg/dL (40-60); LDL Cholesterol Calculated 66 mg/dL (<130); Osmolality Calculated 320 mOsm/kg (285-295); Potassium 4.5 mmol/L (3.5-5.1); Sodium 145 mmol/L (136-145); Thyroid Stimulating Hormone 12.99 uIU/mL (0.36-3.74); Total Protein 7.5 g/dL (6.4-8.2); Triglycerides 105 mg/dL (0-150)
[2024-11-22 12:38] LABS: Free T4 Free Thyroxine 0.92 ng/dL (0.76-1.46)
[2024-11-22 17:58] LABS: Vitamin D 25 Hydroxy 19 ng/mL (30-100)
[2024-11-23 14:38] LABS: Red Blood Cell Folate 561 ng/mL RBC (>280)
== END 2024-11-20 10:30 | disposition home or self-care (01) ==
PROVIDERS: PCP Family Medicine; Visit Provider Family Medicine
DX: E55.9 Vitamin D deficiency, unspecified (principal); I10 Essential (primary) hypertension; E03.9 Hypothyroidism, unspecified; I48.91 Unspecified atrial fibrillation
CPT/HCPCS: 36415; 80053; 80061; 81001; 82043; 82248; 82306; 82747; 83735; 84439; 84443; 85027

== ENCOUNTER 2024-11-28 10:00 | Outpatient (CLI) | payer MEDICARE, SELFPAY ==
--- NOTE | ~2024-11-28 | US_ITS ---
CORRECTED REPORT [place] and images [id number] [facility] [place] This report was recreated on 11/28/24. Original report was BURSEMENT AUDITOR LEFT LOWER EXTREMITY VENOUS ULTRASOUND Ordering provider: Kahlil Peres MD History: . edema . Comparison: None. FINDINGS: --COMMON FEMORAL: Patent and free of thrombus. Normal compressibility, phasic flow and augmentation. --PROXIMAL SUPERFICIAL FEMORAL: Patent and free of thrombus. Normal compressibility, phasic flow and augmentation. --DISTAL SUPERFICIAL FEMORAL: Patent and free of thrombus. Normal compressibility, phasic flow and augmentation. --POPLITEAL: Patent and free of thrombus. Normal compressibility, phasic flow and augmentation. --POSTERIOR TIBIAL: Patent and free of thrombus. Normal compressibility, phasic flow and augmentation. IMPRESSION: Negative left lower extremity venous US. No deep vein thrombosis. Reviewed, dictated and finalized at location A. BURSEMENT AUDITOR MTDD
--- NOTE | ~2024-11-28 | US_ITS ---
US renal BI Ordering provider: Kahlil Peres MD History: . Renal insutticiency . Comparison: None. Technique: Ultrasound bilateral kidneys. Findings: RIGHT KIDNEY: Measures 10.5x 5.4x 6 cm in length which is normal in size. No renal cysts. No renal ma ss or visualized echogenic stones. Otherwise, normal echotexture and contour. No hydronephrosis. Norm al renal cortical thickness. LEFT KIDNEY: Measures 11.4x 4x 5.6 cm in length which is normal in size. No renal cysts. No renal mas s or visualized echogenic stones. Otherwise, normal echotexture and contour. No hydronephrosis. Lyn l renal cortical thickness. BLADDER: Wall thickness is 5.9 mm. Ureteral jets were not seen bilaterally. IMPRESSION: No definite abnormality seen. Reviewed, dictated and finalized at location A. NLESS STEEL FINISHER
[2024-11-28 12:17] LABS: D Dimer 0.93 mg/L (0.19-0.50)
[2024-11-28 12:20] LABS: Hematocrit 41.1 % (37.0-46.0); Hemoglobin 13.3 g/dL (12.4-15.3); Mean Corpuscular HGB Conc 32.4 g/dL (32-36); Mean Corpuscular Hemoglobin 32.5 pg (27.0-31.0); Mean Corpuscular Volume 100.5 fL (78.0-102.0); Platelet Count Result 256 K/mm3 (150-420); Red Blood Count 4.09 M/mm3 (4.70-6.10); Red Cell Distribution Width 12.7 % (11.6-14.4); White Blood Count 12.8 K/mm3 (4.8-10.8)
[2024-11-28 12:22] LABS: Anion Gap 12 mmol/L (4-12); Blood Urea Nitrogen 48 mg/dL (7-18); Calcium 9.6 mg/dL (8.5-10.1); Carbon Dioxide 24 mmol/L (21-32); Chloride 107 mmol/L (98-108); Estimated Glomerular Filt Rate 21; Glucose 226 mg/dL (70-99); Osmolality Calculated 315 mOsm/kg (285-295); Potassium 5.1 mmol/L (3.5-5.1); Sodium 143 mmol/L (136-145)
[2024-11-29 04:46] LABS: Vitamin B12 838 pg/mL (193-986)
[2024-12-03 16:17] LABS: RPR Screen NON-REACTIVE (NON-REACTIVE)
--- OUTSIDE RECORDS SUMMARY | 2024-12-06 00:16 | XMS_ITS ---
Author Organization [facility] Address [address] [place], [place] [id number] Care Team Providers Care Vice President Name Role Phone ALICE FALCON Unavailable [phone] Migration, Provider Unavailable Unavailable Allergies Allergen (clinical drug ingredient) Drug/Non Drug Allergy documented on EMR Reaction Allergy Type Onset Date Status Magnesium Unknown Drug Allergy 05/26/2022 Active REASON FOR VISIT EMR-Nando Medications Medication SIG (Take, Route, Frequency, Duration) Notes Start Date End Date Status FENOFIBRATE MICRONIZED 48 MG TABLET *Reorder from [employer] for eRx and Interaction Alerts* 05/26/2022 Active Levothyroxine Sodium 125 MCG Oral 05/26/2022 Active Atorvastatin Calcium 80 MG Oral 05/26/2022 Active Fenofibrate 48 MG Oral 05/26/2022 A ctive Allopurinol 100 MG Oral 05/26/2022 Active Eliquis 5 MG Oral 05/26/2022 Active NIFEdipine 20 mg Oral 05/26/2022 Ac tive Torsemide 10 MG Oral 05/26/2022 Act claudia Metoprolol Tartrate 50 MG Oral 05/26/2022 Active Lisinopril 5 MG Oral 05/26/2022 Act claudia Encounters Encounter Location Date Provider Diagnosis Cardiology [facility] [address] [place], [place] [id number] 08/07/2023 Provider Migration Plan Of Treatment No Information Progress Notes * TERRI SALDIVAR RDOB: [birth year] (69 yo M)Acc No.[id number]:08/07/2023 Patient:?TERRI SALDIVAR :1955???Age:68 Y???Sex:Male Address:[address] [place], [place] [address], [place], [address] Subjective: * Chief Complaints: * ???EMR-Nando * Medical History:? * Surgical History:?Biopsy of lung ([id number]) RIGHT Procedure on shoulder ([id number]) [employer] LEFT SHOULDER SEPARATION Colonoscopy 03/25/2013Percutaneous transluminal coronary angioplasty ([id number]) STENT TO LAD -CARDIAC CATH 2 STENTS 08/21/2012 * Hospitalization/Major Diagno stic Procedure:? * Family History:?Father: Samira nts , Notes: copd; lung cancer .?Mother: Parents , Notes: CAD ; diabetes .? * Social History:?Migrated Social History:?Migrated Social History: Alcohol Intake: Moderate 06/29/2019,Tobacco Years: Never smoker 06/29/2019,. * Medications:?TakingAllopurin ol 100 MG Tablet Oral Atorvastatin Calcium 80 MG Tablet Oral Fenofibrate 48 MG Tablet Oral Levothyroxine Sodium 125 MCG Tablet Oral Lisinopril 5 MG Tablet Oral Metoprolol Tartrate 50 MG Tablet Oral NIFEdipine 20 mg Capsule Oral Torsemide 10 MG Tablet Oral Eliquis 5 MG Tablet Oral FENOFIBRATE MICRONIZED 48 MG TABLET , Notes to Pharmacist: *Reorder from [employer] for eRx and Interaction Alerts*Taking Allopurinol 100 MG Tablet Oral Taking Atorvastatin Calcium 80 MG Tablet Oral Taking Fenofibrate 48 MG Tablet Oral Taking Levothyroxine Sodium 125 MCG Tablet Oral Taking Lisinopril 5 MG Tablet Oral Taking Metoprolol Tartrate 50 MG Tablet Oral Taking NIFEdipine 20 mg Capsule Oral Taking Torsemide 10 MG Tablet Oral Taking Eliquis 5 MG Tablet Oral Taking FENOFIBRATE MICRONIZED 48 MG TABLET , Notes to Pharmacist: *Reorder from [employer] for eRx and Interaction Alerts* * Allergies:?Magnesium: Allerg y - Onset Date 05/26/2022 Objective: * Vitals:? * Physical Examination:? Assessment: Plan: * Treatment: * Procedure Codes:? * * Date:?
== END 2024-11-28 10:01 | disposition home or self-care (01) ==
LOC: CHSIMG 11:41
PROVIDERS: PCP Family Medicine; Visit Provider Family Medicine
DX: R60.9 Edema, unspecified (principal); N28.9 Disorder of kidney and ureter, unspecified; R41.0 Disorientation, unspecified; I25.10 Atherosclerotic heart disease of native coronary artery without angina pectoris; I48.91 Unspecified atrial fibrillation
CPT/HCPCS: 36415; 76775; 80048; 82607; 85027; 85380; 86592; 93971

== ENCOUNTER 2024-11-30 08:22 | Emergency (ER) | payer MEDICARE, SELFPAY ==
[2024-11-30] VITALS (40 sets, daily range): BP systolic 90–103; BP diastolic 53–85; PULSE 88–121; RESP 11–28; TEMP 36.7–37.9; O2SAT 86–100
--- NOTE | ~2024-11-30 | CT_ITS ---
EXAMINATION: CT soft tissue neck wo con DATE: 11/30/2024 09:56 INDICATION: Left submandibular swelling. TECHNIQUE: Computed tomography (CT) of the neck was performed without intravenous contrast. Automated exposure control and iterative reconstruction technique were employed. The dose-length product was 1 083.70 mGy-cm. COMPARISON: None FINDINGS: Motion artifact is noted. The left parotid gland is enlarged with surrounding fat stranding , consistent with parotiditis. No sialolith. There is mucosal thickening in the pharynx. There are no pathologically enlarged lymph nodes. There is moderate cervical spondylosis. IMPRESSION: 1. Left-sided parotiditis. No sialolith. 2. Mucosal thickening in the pharynx, which may be inflammation. Reviewed, dictated and finalized at location A. OMS APPRAISER
--- NOTE | 2024-11-30 08:31 | ED.GENADULT ---
HPI - General Adult General Chief complaint: Skin/Abscess/Foreign Body Stated complaint: facial swelling Time Seen by Provider: 11/30/24 08:30 Source: EMS Mode of arrival: EMS History of Present Illness HPI narrative: 69 years old white male came to the ED from custodial by ambulance with swelling at the left face noticed this morning. Patient is nonverbal. History of encephalopathy. Related Data Home Medications ?Medication ?Instructions ?Recorded ?Confirmed ?Last Taken ?Type atorvastatin 80 mg tablet 80 mg PO QPM 07/01/23 10/27/24 10/27/24 History duloxetine 30 mg capsule,delayed 30 mg PO DAILY 07/01/23 10/27/24 10/27/24 History release ezetimibe 10 mg tablet 10 mg PO DAILY 07/01/23 10/27/24 10/27/24 History fenofibric acid (choline) 45 mg 45 mg PO DAILY 07/01/23 10/27/24 10/27/24 History capsule,delayed release nifedipine 30 mg tablet,extended 30 mg PO DAILY 07/01/23 10/27/24 10/27/24 History release 24 hr torsemide 10 mg tablet 10 mg PO DAILY 07/01/23 10/27/24 10/27/24 History apixaban 5 mg tablet (Eliquis) 5 mg PO BID 10/25/24 10/27/24 10/27/24 History Allergies Allergy/AdvReac Type Severity Reaction Status Date / Time magnesium sulfate AdvReac Intermediate Flushing Verified 10/27/24 15:01 Review of Systems Review of Systems: All systems reviewed & are unremarkable except as noted in HPI and below PMFSH Past Medical History Medical History CAD (coronary artery disease) Ascending aorta dilatation Myocardial infarction Hyperlipidemia Hypertension Alcoholism A-fib Closed rib fracture Social History Social History Smoking status: Never smoker Second hand tobacco smoke exposure: No Alcohol intake: former Drinks per week: 2 Substance use: never Substance use type: does not use Do You Feel Safe in your Home?: Yes Lack of Transportation: No Lack of Food: Never True Current Housing: I Have Housing Concerned About Future Housing: No Difficulty Paying Gas/Electric Bills: No Difficulty Paying for Meds: No Currently Unemployed: No Education: High School Diploma/GED Difficulty w/ Childcare or Family Care: No Spiritual care concerns: Yes Exam Narrative: General appearance: Well-developed, well-nourished Skin: Normal color Head: Normocephalic, nontraumatic Eyes: Clear conjunctiva ENT: Oropharynx normal, ears normal, nose normal , swelling, tender left parotid gland and left submandibular area Neck: Supple, nontender Chest and respiratory: Airway patent, no respiratory distress, no accessory muscle use Heart: tachycardia Abdomen: Soft, nontender, no organomegaly, quiet bowel sounds Musculoskeletal: stiffness of the lower extremity bilaterally Neurologic: Alert and nonverbal Course Vital Signs Vital signs: Vital Signs Temperature 37.9 C H 11/30/24 08:22 Pulse Rate 88 11/30/24 08:22 Respiratory Rate 22 H 11/30/24 08:22 Blood Pressure 91/64 L 11/30/24 08:22 Pulse Oximetry 96 11/30/24 08:22 Oxygen Delivery Room Air 11/30/24 08:22 Temperature 37.2 C 11/30/24 10:48 Pulse Rate 90 11/30/24 10:48 Respiratory Rate 25 H 11/30/24 10:48 Blood Pressure 90/53 L 11/30/24 10:38 Pulse Oximetry 97 11/30/24 10:48 Oxygen Delivery Room Air 11/30/24 10:[address] [facility] Narrative Medical decision making narrative: patient came from custodial with swelling of the left face of unknown duration Vital signs showing blood pressure 91/64, temperature 37.9? Physical examination showed tenderness and swelling of the left parotid and left submandibular area, patient is nonverbal, history of encephalopathy Differential diagnosis include parotitis, stones, tumor, Blood workup today includes CBC, CMP, PT PTT, lactic acid, CRP showed WBC of 14.7, BNP 54, creatinine 3.03 consistent with previous records, lactic acid 1.6, C-reactive protein 13.7, CT face without contrast showed finding consistent with parotitis no stones Patient started on vancomycin and Unasyn, admit to hospitalist because of borderline hypotension TRANSFERRED TO [facility] DISCUSSED WITH DR. SALAZAR Differential Diagnosis Differential Diagnosis: ABOVE Vital Signs Vital Signs: Vital Signs Temperature 37.9 C H 11/30/24 08:22 Pulse Rate 88 11/30/24 08:22 Respiratory Rate 22 H 11/30/24 08:22 Blood Pressure 91/64 L 11/30/24 08:22 Pulse Oximetry 96 11/30/24 08:22 Oxygen Delivery Room Air 11/30/24 08:22 Temperature 37.2 C 11/30/24 10:48 Pulse Rate 90 11/30/24 10:48 Respiratory Rate 25 H 11/30/24 10:48 Blood Pressure 90/53 L 11/30/24 10:38 Pulse Oximetry 97 11/30/24 10:48 Oxygen Delivery Room Air 11/30/24 10:48 Lab Data 11/30/24 08:43 11/30/24 08:43 Labs: Lab Results 11/30/24 11/30/24 Range/Units 08:43 09:00 WBC 14.7 H (4.8-10.8) K/mm3 RBC 3.95 L (4.70-6.10) M/mm3 Hgb 12.6 (12.4-15.3) g/dL Hct 39.5 (37.0-46.0) % MCV 100.0 (78.0-102.0) fL MCH 31.9 H (27.0-31.0) pg MCHC 31.9 L (32-36) g/dL RDW 12.6 (11.6-14.4) % Plt Count 245 (150-420) K/mm3 MPV 10.4 (8.7-11.0) fl Immature Gran % (Auto) 0.6 H (0.0-0.0) % Neut % (Auto) 83.3 H (50.0-70.0) % Lymph % (Auto) 8.0 L (18.0-42.0) % [place] % (Auto) 7.7 (2.0-11.0) % Eos % (Auto) 0.3 L (1.0-6.0) % Baso % (Auto) 0.1 (0.0-1.0) % Lymph # (Auto) 1.18 (1.10-4.50) K/mm3 [place] # (Auto) 1.14 H (0.10-0.90) K/mm3 Eos # (Auto) 0.05 (0.02-0.50) K/mm3 Baso # (Auto) 0.02 (0.00-0.10) K/mm3 Abs Immat Gran (auto) 0.09 H (0.00-0.00) K/mm3 Absolute Neuts (auto) 12.23 H (1.70-7.20) K/mm3 Absolute Nucleated RBC 0.00 (0.00-0.00) K/mm3 Nucleated RBC % 0.0 (0-0.0) % PT 13.5 H (9.50-12.1) Seconds INR 1.2 APTT 32.8 H (23.9-30.70) Sec Sodium 144 (136-145) mmol/L Potassium 4.3 (3.5-5.1) mmol/L Chloride 109 H (98-108) mmol/L Carbon Dioxide 24 (21-32) mmol/L Anion Gap 11 (4-12) mmol/L BUN 54 H (7-18) mg/dL Creatinine 3.03 H (0.70-1.30) mg/dL Estim Creat Clear Calc 21 ml/min Estimated GFR 21 L (59 - ) Glucose 175 H (70-99) mg/dL Calculated Osmolality 316 H (285-295) mOsm/kg Lactic Acid 1.6 (0.4-2.0) mmol/L Calcium 9.5 (8.5-10.1) mg/dL Total Bilirubin 0.8 (0.00-1.00) mg/dL AST 36 (15-37) U/L ALT 37 (16-63) U/L Alkaline Phosphatase 64 (46-116) U/L C-Reactive Protein 13.7 H (0.0-0.9) mg/dL Total Protein 7.3 (6.4-8.2) g/dL Albumin 2.6 L (3.4-5.0) g/dL Influenza A (RT-PCR) Negative (Negative) Influenza B (RT-PCR) Negative (Negative) RSV (RT-PCR) Negative (Negative) SARS-CoV-2 RNA (RT-PCR) Negative (Negative) Imaging Data Radiologist's impression: Impressions Soft Tissue Neck CT 11/30/24 10:00 IMPRESSION: 1. Left-sided parotiditis. No sialolith. 2. Mucosal thickening in the pharynx, which may be inflammation. Critical Care Time Critical Care Time Critical Care Time: No Discharge Plan Discharge Clinical Impression: Hypotension, Acute parotitis, CKD (chronic kidney disease) Patient Disposition: Still a Patient Condition: Stable Additional Instructions: TRANSFERRED TO [facility] Patient Language: [place] Prescriptions: No Action nifedipine 30 mg tablet extended release 24hr 30 mg PO DAILY atorvastatin 80 mg tablet 80 mg PO QPM torsemide 10 mg tablet 10 mg PO DAILY ezetimibe 10 mg tablet 10 mg PO DAILY duloxetine 30 mg capsule,delayed release(DR/EC) 30 mg PO DAILY fenofibric acid (choline) 45 mg capsule,delayed release(DR/EC) 45 mg PO DAILY hydrocodone-acetaminophen 10-325 mg tablet 1 tablet PO Q8H PRN (Reason: pain) Qty: 20 0RF Rx Instructions: 1/2-1 tab per dose Eliquis 5 mg Tablet 5 mg PO BID Patient Comments: pt gets eliquis samples from Dr. Anne Kendrick's office ([phone], ext [phone]). has been taking since 03/2023 per momo trazodone 50 mg Tablet 50 mg PO HS PRN (Reason: Insomnia) Qty: 1 0RF thiamine HCl (vitamin B1) [Vitamin B-1] 100 mg Tablet 100 mg PO QAM Qty: 1 0RF magnesium oxide 400 mg (241.3 mg magnesium) Tablet 400 mg PO BID Qty: 1 0RF pantoprazole 40 mg Tablet,Delayed Release (Dr/Ec) 40 mg PO QAM Qty: 1 0RF folic acid 1 mg Tablet 1 mg PO DAILY Qty: 1 0RF metoprolol tartrate 25 mg Tablet 25 mg PO Q12HR Qty: 1 0RF multivitamin with folic acid [Thera] 400 mcg Tablet 1 tablet PO QAM Qty: 1 0RF acetaminophen 325 mg Tablet 650 mg PO Q4H PRN (Reason: Mild Pain (1-3) Or Fever) Qty: 2 0RF Follow-up/Referrals: Kahlil Peres MD [Primary Care Provider] -
[2024-11-30 08:55] LABS: Basophils Absolute Auto 0.02 K/mm3 (0.00-0.10); Basophils Percent Auto 0.1 % (0.0-1.0); Eosinophils Absolute Auto 0.05 K/mm3 (0.02-0.50); Eosinophils Percent Auto 0.3 % (1.0-6.0); Hematocrit 39.5 % (37.0-46.0); Hemoglobin 12.6 g/dL (12.4-15.3); Immature Granulocyte Absolute 0.09 K/mm3 (0.00-0.00); Immature Granulocyte Percent A 0.6 % (0.0-0.0); Lymphocytes Absolute Auto 1.18 K/mm3 (1.10-4.50); Mean Corpuscular HGB Conc 31.9 g/dL (32-36); Mean Corpuscular Hemoglobin 31.9 pg (27.0-31.0); Mean Platelet Volume 10.4 fl (8.7-11.0); Monocytes Absolute Auto 1.14 K/mm3 (0.10-0.90); Monocytes Percent Auto 7.7 % (2.0-11.0); Neutrophils Absolute Auto 12.23 K/mm3 (1.70-7.20); Neutrophils Percent Auto 83.3 % (50.0-70.0); Platelet Count Result 245 K/mm3 (150-420); Red Blood Count 3.95 M/mm3 (4.70-6.10); Red Cell Distribution Width 12.6 % (11.6-14.4); White Blood Count 14.7 K/mm3 (4.8-10.8)
[2024-11-30] MEDS: ACETAMINOPHEN 325 MG TABLET 650 MG PO (08:57)
[2024-11-30] MEDS: SODIUM CHLORIDE 0.9% IV 1,000 ML 999 ML IV CONT ×2 (08:58→10:33)
[2024-11-30 09:10] LABS: INR 1.2; Partial Thromboplastin Time 32.8 Sec (23.9-30.70); Prothrombin Time 13.5 Seconds (9.50-12.1)
[2024-11-30 09:13] LABS: Lactic Acid Reflex 1.6 mmol/L (0.4-2.0)
[2024-11-30 09:20] LABS: Alanine Aminotransferase 37 U/L (16-63); Albumin Level 2.6 g/dL (3.4-5.0); Alkaline Phosphatase 64 U/L (46-116); Anion Gap 11 mmol/L (4-12); Aspartate Amino Transferase 36 U/L (15-37); Bilirubin,Total 0.8 mg/dL (0.00-1.00); Blood Urea Nitrogen 54 mg/dL (7-18); Calcium 9.5 mg/dL (8.5-10.1); Carbon Dioxide 24 mmol/L (21-32); Chloride 109 mmol/L (98-108); Estimated CRCL calculation 21 ml/min; Estimated Glomerular Filt Rate 21; Glucose 175 mg/dL (70-99); Osmolality Calculated 316 mOsm/kg (285-295); Potassium 4.3 mmol/L (3.5-5.1); Sodium 144 mmol/L (136-145); Total Protein 7.3 g/dL (6.4-8.2)
[2024-11-30 09:24] LABS: CRP 13.7 mg/dL (0.0-0.9)
--- NOTE | 2024-11-30 09:45 | PC.NURSE ---
pt to xray for ct scan via stretcher with xray staff.
[2024-11-30 09:48] LABS: SARS-CoV-2 RNA PCR Negative (Negative)
[2024-11-30 09:55] LABS: Influenza A QL RT-PCR Negative (Negative); Influenza B QL RT-PCR Negative (Negative); RSV RNA, RT-PCR Negative (Negative)
--- NOTE | 2024-11-30 10:00 | PC.NURSE ---
pt returned from xray via stretcher.
[2024-11-30] MEDS: AMPICILLIN SULB 3 GM/NS 100 ML 3 GM/100 ML VIAL IVPB (10:33)
[2024-11-30] MEDS: VANCOMYCIN 1,250 MG/NS 250 ML 1,250 MG/250 ML BAG 166.67 MG IVPB (11:08)
[2024-11-30] MEDS: SODIUM CHLORIDE 0.9% IV 1,000 ML 100 ML IV CONT (12:46)
--- NOTE | 2024-12-01 14:22 | PC.NURSE ---
final blood cultures x2 reviewed. no growth to date
--- NOTE | 2024-12-01 14:27 | PC.NURSE ---
preliminary blood culture reports x2 reviewed. no growth to date
--- NOTE | 2024-12-03 12:35 | PC.NURSE ---
PRELIMINARY BLOOD CULTURES; MRSA & STAPH, PATIENT TRANSFERRED TO [facility], CULTURE REPORT SENT TO [phone]
== END 2024-11-30 13:13 | disposition short-term general hospital (02) ==
PROVIDERS: Emergency Provider Emergency Medicine; PCP Family Medicine
DX: K11.21 Acute sialoadenitis (principal); I95.9 Hypotension, unspecified; N18.9 Chronic kidney disease, unspecified; Z79.01 Long term (current) use of anticoagulants; Z79.891 Long term (current) use of opiate analgesic; Z20.822 Contact with and (suspected) exposure to COVID-19
CPT/HCPCS: 36415; 70490; 80053; 83605; 85025; 85610; 85730; 86140; 87040; 87181; 87637; 96361; 96365; 96375; 96376; 99285; A9270; J0295; J3370; J7030

== ENCOUNTER 2024-12-24 13:52 | Outpatient (CLI) | payer MEDICARE, SELFPAY ==
--- OUTSIDE RECORDS SUMMARY | 2024-12-24 14:50 | XMS_ITS | Encounter Summary ---
Author Organization [facility] Address [address] [place] [address]. [place] [address] [place] [address] Care Team Providers Care Extrusion Bender Name Role Phone Emeka Garcia MD Unavailable [phone] Anne Kendrick MD Primary Care Provider [phone] Viv Seo MD Unavailable Kahlil Peres MD Primary Care Provider [phone] Encounter Details Date Type Department Care Team (Late st Contact Info) Description 01/02/2024 Hospital Follow-up Call [facility] [address] [place] [address] Dipika Moseley, RN Social History Tobacco Use Types Packs/Day Years Used Date Smoking Tobacco: Never Smokeless Tobacco: Never Alcohol Use Standard Drinks/Week Comments Yes 0 (1 standard drink = 0.6 oz pur e alcohol) [facility] Utilities Answer Date Recorded In the past 12 months has e [employer], gas, oil, or water [employer] threatened to shut off services in your home? No 12/27/2023 Humiliation, Afraid, Rape, and Kick questionnair e Answer Date Recorded Within the last year, have y ou been afraid of your partner or ex-partner? No 12/27/2023 Within the last year, have y ou been humiliated or emotionally abused in other ways by your partner or ex-partner? No Within the last year, have y ou been kicked, hit, slapped, or otherwise physically hurt by your partner or ex-partner? No 12/27/2023 Within the last year, have y ou been raped or forced to have any kind of sexual activity by your partner or ex-partner? No 12/27/2023 Overall Financial Resource Strain (CARDIA) Answe r Date Recorded How hard is it for you to pa y for the very basics like food, housing, medical care, and heating? Not hard at all 12/27/2023 Hunger Vital Sign Answer Date Recorded Within the past 12 months, y ou worried that your food would run out before you got the money to buy more. Never true 12/27/19 24 Within the past 12 months, t he food you bought just didn't last and you didn't have money to get more. Never true 12/27/2023 PRAPARE - Transportation Answer Date Re corded In the past 12 months, has l ack of transportation kept you from medical appointments or from getting medications? No 04/2024 In the past 12 months, has l ack of transportation kept you from meetings, work, or from getting things needed for daily living? No 12/27/2023 Housing Stability Vital Sign Answer Varinder e Recorded In the last 12 months, was t here a time when you were not able to pay the mortgage or rent on time? No 12/27/2023 In the last 12 months, how many places have you lived? 2 12/27/2023 In the last 12 months, was t here a time when you did not have a steady place to sleep or slept in a chcf (including now)? 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 Answer Date of Assessment Author Status No 12/27/2023 8:25 AM Em Spann RN Active * Do you have serious difficulty walking or climbing stairs? Answer Date of Assessment Author Status Yes 12/26/2023 9:15 PM Em Spann RN Active * Do you have difficulty dressing or bathing? Answer Date of Assessment Author Status No 12/26/2023 9:15 PM Em Spann RN Active * Because of a physical, mental, or emotional condition, do you have difficulty doing errands alone such as visiting a doctor's office or shopping? Answer Date of Assessment Author Status Yes 12/26/2023 9:15 PM Em Spann RN Active documented as of this encounter Mental Status * Because of a physical, mental, or emotional condition, do you have serious difficulty concentrating, remembering, or making decisions? Answer Entry Date Author Status No 12/26/2023 9:15 PM Em Spann RN Active documented in this encounter Plan of Treatment Upcoming Encounters Date Type Department Care Team (Late st Contact Info) Description 03/13/2025 11:00 AM CDT Office Visit [facility] [place] [address] Emeka Garcia MD [address] [place] [address] 05/15/2025 8:[address] [facility] [place] [address] Viv Seo MD [address] [place] [address] 05/20/2025 2:45 PM CDT Office Visit [facility] [place] [address] Viv Seo MD [address] [place] [address] documented as of this encounter Goals Goal Patient Goal Type Associated Problems Recent Progress Patient-Stated? Author Patient will return to prior living situation and remain independent in ADLs upon discharge from hospital Lifestyle Vicky Moreira RN documented as of this encounter Visit Diagnoses Not on filedocumented in this encounter Care Teams Extrusion Bender Relationship Specialty Start Date End Date Anne Kendrick MD [address] [facility] [place] [id number] PCP - General FAMILY PRACTICE 10/05/23 11/29/24 Kahlil Peres MD [address] [place] [address] PCP - General FAMILY PRACTICE 11/30/24 Emeka Garcia MD [address] [place] [id number] Consulting Physician CLINICAL CARDIAC ELECTROPHYSIOLOGY 03/30/23 Viv Seo MD [address] [place] [id number] Consulting Physician CARDIOVASCULAR DISEASE 05/11/24 documented as of this encounter
--- OUTSIDE RECORDS SUMMARY | 2024-12-24 14:50 | XMS_ITS | Clinical Summary ---
Author Organization [facility] Address [address] [place] [address]. [place] [address] [place] [address] Care Team Providers Care Anesthesiology Faculty Name Role Phone Emeka Garcia MD Unavailable [phone] Viv Seo MD Unavailable Kahlil Peres MD Primary Care Provider [phone] Allergies Active Allergy Reactions Criticality Noted Date Comments Magnesium Hives 12/30/2022 Received 2 g IVPB one time dose on December and September of 2023 Medications ELIQUIS 5 MG tablet Take 1 tablet (5 mg total) by mouth 2 (two) times daily. Patient reports only taking once per day due to cost of medication 02/11/20 Active fenofibrate (TRICOR) 48 MG tablet Take 1 tablet (48 mg total) by mouth daily. 11/16/20 22 Active torsemide (DEMADEX) 10 MG tablet Take 1 tablet (10 mg total) by mouth daily. 05/12/20 23 Active acetaminophen (TYLENOL) 325 MG tablet Take 2 tablets (650 mg total) by mouth every 4 (four) hours as needed for Pain. Active DULoxetine (CYMBALTA) 30 MG capsule Take 1 capsule (30 mg total) by mouth daily. Active folic acid (FOLVITE) 1 MG tablet Take 1 tablet (1 mg total) by mouth daily. Active magnesium oxide (MAG-OX) 400 (240 Mg) MG tablet Take 1 tablet (400 mg total) by mouth 2 (two) times daily. Active multi vitamin/minera ls (THERA-M ENHANCED) tablet Take 1 tablet by mouth daily. Active naloxone (NARCAN) 4 MG/0.1ML nasal spray 1 spray by Nasal route as needed for Opioid reversal. Active pantoprazole EC (PROTONIX) 40 MG tablet Take 1 tablet (40 mg total) by mouth daily. Active Vitamin B12 100 MCG tablet Take 0.5 tablets (50 mcg total) by mouth daily. Active albuterol sulfate HFA 108 (90 Base) MCG/ACT inhaler Inhale 2 puffs into the lungs every 6 (six) hours as needed for Wheezing. Active metoprolol tartrate (LOPRESSOR) 25 MG tablet Take 4 tablets (100 mg total) by mouth 2 (two) times daily. 480 tablet 12/18/19 25 Active amLODIPine (NORVASC) 10 MG tablet Take 1 tablet (10 mg total) by mouth daily. 60 tablet 12/19/19 25 Active DAPTOmycin (CUBICIN) Inject 10.5 mLs (525 mg total) into the vein daily for 13 days. IV Daptomycin 8mg/kg (500 mg) q 24 hours for MRSA bacteremia. Stop date 12/31/24. 136.5 mL 12/18/19 25 025 Active QUEtiapine (SEROQUEL) 25 MG tablet Take 1 tablet (25 mg total) by mouth 2 (two) times daily as needed (Agitation). 60 tablet 12/18/19 25 Active allopurinol (ZYLOPRIM) 100 MG tablet Take 2 tablets (200 mg total) by mouth daily. 11/17/20 025 Discontinued(Er ror) atorvastatin (LIPITOR) 80 MG tablet Take 1 tablet (80 mg total) by mouth nightly at bedtime. 11/16/20 22 025 Discontinued(St op Taking at Discharge) lisinopril (PRINIVIL) 10 MG tablet Take 1 tablet (10 mg total) by mouth 2 (two) times daily. 11/16/20 025 Discontinued(Er ror) levothyroxine (SYNTHROID) 125 MCG tablet Take 1 tablet (125 mcg total) by mouth daily. 025 Discontinued(Er ror) DULoxetine (CYMBALTA) 60 MG capsule Take 30 mg by mouth daily. For depression 05/12/20 23 025 Discontinued(Er ror) ezetimibe (ZETIA) 10 MG tablet Take 1 tablet (10 mg total) by mouth daily. 08/31/20 23 025 Discontinued(St op Taking at Discharge) Choline Fenofibrate (FENOFIBRIC ACID) 45 MG CAPSULE DELAYED RELEASE Take 45 mg by mouth daily. 09/23/20 23 025 Discontinued(Er ror) NIFEdipine XL (PROCARDIA-XL) 30 MG 24 hr tablet Take 1 tablet (30 mg total) by mouth daily. 11/25/19 24 025 Discontinued(St op Taking at Discharge) metoprolol succinate ER (TOPROL-XL) 200 MG 24 hr tablet Take 1 tablet (200 mg total) by mouth daily. 025 Discontinued(Er ror) aspirin 81 MG chewable tablet Chew 1 tablet (81 mg total) by mouth daily. 025 Discontinued(Er ror) vitamin D3 (CHOLECALCIFER OL) 125 mcg Tab Take 1 tablet (125 mcg total) by mouth daily. 025 Discontinued(Er ror) HYDROcodone-ac etaminophen (NORCO) 10-325 MG tablet Take 1 tablet by mouth every 8 (eight) hours as needed for Pain. 025 Discontinued(Er ror) metoprolol tartrate (LOPRESSOR) 25 MG tablet Take 2 tablets (50 mg total) by mouth 2 (two) times daily. 025 Discontinued naLOXone in sodium chloride (PF) injection Inject 10 mLs (0.4 mg total) into the vein as needed. 025 Discontinued(Er ror) traZODone (DESYREL) 50 MG tablet Take 1 tablet (50 mg total) by mouth nightly at bedtime. 025 Discontinued(St op Taking at Discharge) Active Problems Problem Noted Date Diagnosed Date Parotiditis 11/30/2024 NSTEMI (non-ST elevated myoc ardial infarction) (CMS/HCC [facility]) 12/26/2023 Multiple fractures of ribs, bilateral, initial encounter for closed fracture 10/02/2023 Fall 10/02/2023 SOB (shortness of breath) on exertion 12/30/2022 Encounters Date Type Department Care Team Description 12/19/2024 Telephone [facility] [address] [place] [address] Emeka Garcia MD Error 11/30/2024 2:31 PM TUBE CUTTER - 12/18/2024 12:39 PM TUBE CUTTER Hospital Encounter [facility] Neurology [address] [place] [address] Lara Ramos MD Ahmed, Asad N, MD Missula, Venkata R Karthik, MD Anunobi, Nnamdi, MD Udeozo, Obiora I, MD Sonani, Bhavin V., MD Hoffman, Donn More MD Discharge Disposition: Longterm Facility 11/30/2024 Travel from Last 3 Months Immunizations Name Administration Dates Next Due Tdap (Boostrix) 07/11/2024 Tdap (Generic) 06/03/2015 Social History Tobacco Use Types Packs/Day Years Used Date Smoking Tobacco: Never Smokeless Tobacco: Never Tobacco Cessation:Counseling Given: Not Answered Alcohol Use Standard Drinks/Week Comments Yes 16.7 (1 standard drink = 0.6 oz pure alcohol) [facility] Utilities Answer Date Recorded In the past 12 months has e [employer], gas, oil, or water [employer] threatened to shut off services in your home? No 11/30/2024 Humiliation, Afraid, Rape, a nd Kick questionnaire Answer Date Recorded Within the last year, have y ou been afraid of your partner or ex-partner? Patient unable to answer 11/30/2024 Within the last year, have y ou been humiliated or emotionally abused in other ways by your partner or ex-partner? Patient unable to answer 11/30/2024 Within the last year, have y ou been kicked, hit, slapped, or otherwise physically hurt by your partner or ex-partner? Patient unable to answer 11/30/2024 Within the last year, have y ou been raped or forced to have any kind of sexual activity by your partner or ex-partner? Patient unable to answer 11/30/2024 Overall Financial Resource Strain (CARDIA) Answe r Date Recorded How hard is it for you to pa y for the very basics like food, housing, medical care, and heating? Not hard at all 11/30/2024 Hunger Vital Sign Answer Date Recorded Within the past 12 months, y ou worried that your food would run out before you got the money to buy more. Patient unable to answer 11/30/2024 Within the past 12 months, t he food you bought just didn't last and you didn't have money to get more. Patient unable to answer 11/30/2024 PRAPARE - Transportation Answer Date Re corded In the past 12 months, has l ack of transportation kept you from medical appointments or from getting medications? No 11/21 In the past 12 months, has l ack of transportation kept you from meetings, work, or from getting things needed for daily living? No 11/30/2024 Housing Stability Vital Sign Answer Varinder e [...] place to sleep or slept in a nursing home (including now)? No 12/27/2023 Housing Stability Vital Sign Answer Varinder e Recorded In the last 12 months, was t here a time when you were not able to pay the mortgage or rent on time? No 11/30/2024 In the past 12 months, how m any times have you moved where you were living? 1 11/30/2024 At any time in the past 12 m [facility], were you homeless or living in a nursing home (including now)? Patient unable to answer 11/30/2024 Sex and Gender Information Value Date Recorded Sex Assigned at Male 12/04/2024 9:12 AM TUBE CUTTER Legal Sex Male 5:48 PM TUBE CUTTER Gender Identity Not on file Sexual Orientation Not on file Last Filed Vital Signs Vital Sign Reading Time Taken Comments Blood Pressure 119/71 12/18/2024 8:01 AM TUBE CUTTER Pulse 82 12/18/2024 8:01 AM TUBE CUTTER Temperature 36.5 ??C (97.7 ??F) 12/18/2024 8:01 AM CS T Respiratory Rate 18 12/18/2024 8:01 AM TUBE CUTTER Oxygen Saturation 99% 12/18/2024 8:01 AM TUBE CUTTER Inhaled Oxygen Concentration - - Weight 64.3 kg (141 lb 12.1 oz) 12/18/2024 3:25 AM TUBE CUTTER Height 177.8 cm (5' 10 ) 12/17/2024 4:26 AM TUBE CUTTER Body Mass Index 20.34 12/17/2024 4:26 AM TUBE CUTTER Plan of Treatment Upcoming Encounters Date Type Department Care Team (Late st Contact Info) Description 03/13/2025 11:00 AM CDT Office Visit [facility] [address] [place] [address] Emeka Garcia MD [address] [place], [place] [phone] 05/15/2025 8:[address] [facility] [place] [address] Viv Seo MD [address] [place], [place] [phone] 05/20/2025 2:45 PM CDT Office Visit [facility] [address] [place] [address] Viv Seo MD [address] [place], [place] [phone] Health Maintenance Due Date Last Done Comments ASCVD Statin 1955 Colorectal Cancer Screening Colonoscopy (10 Years) 1955 COVID-19 Vaccine (#1) 1960 Pneumococcal Vaccine: 65+ Years (1 of 2 - PCV) 1961 Hepatitis C 1973 Zoster Vaccines (1 of 2) 1974 RSV Immunization or 60+ Years (1 - Risk 60-74 years 1-dose series) 2015 Annual Medicare Wellness Visit 2020 Influenza Adult (#1) 2024 DTaP, Tdap and Td Vaccines ( 3 - Td or Tdap) 07/11/2034 07/11/2024, 06/03/2015 Meningococcal B Vaccine Aged Out No l onger eligible based on patient's age to complete this topic Meningococcal Vaccine Aged Out No malaika elpidio eligible based on patient's age to complete this topic RSV Immunizations Under 20 Months Aged Out No longer eligible b ased on patient's age to complete this topic Goals Goal Patient Goal Type Associated Problems Recent Progress Patient-Stated? 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 Procedure Name Priority Date/Time Associated Diagnosis Comments POCT GLUCOSE - HULL DOCKED DEVICE Routine 12/18/2024 12:02 PM TUBE CUTTER USV VAST TEAM MIDLINE INSERT >5YR STAT 12/18/2024 11:15 AM TUBE CUTTER BASIC METABOLIC PANEL STAT 12/18/2024 9:13 AM TUBE CUTTER POCT GLUCOSE - HULL DOCKED DEVICE Routine 12/18/2024 5:42 AM TUBE CUTTER POCT GLUCOSE - HULL DOCKED DEVICE Routine 12/18/2024 12:00 AM TUBE CUTTER POCT GLUCOSE - HULL DOCKED DEVICE Routine 12/17/2024 5:26 PM TUBE CUTTER POCT GLUCOSE - HULL DOCKED DEVICE Routine 12/17/2024 12:[address] GD ASPIR+BX BONE MARROW Today 12/17/2024 9:07 AM TUBE CUTTER FLOW CYTOMETRY Routine 12/17/2024 9:00 AM TUBE CUTTER PROTHROMBIN TIME, VENOUS STAT 12/17/2024 8:00 AM TUBE CUTTER CBC W/DIFF AUTOMATED Routine 12/17/2024 3:45 AM TUBE CUTTER BASIC METABOLIC PANEL Routine 12/17/2024 3:45 AM TUBE CUTTER PATHOLOGY Routine 12/17/2024 12:00 AM TUBE CUTTER POCT GLUCOSE - HULL DOCKED DEVICE Routine 12/16/2024 4:38 PM TUBE CUTTER POCT GLUCOSE - HULL DOCKED DEVICE Routine 12/16/2024 11:51 AM TUBE CUTTER POCT GLUCOSE - HULL DOCKED DEVICE Routine 12/16/2024 5:11 AM TUBE CUTTER POCT GLUCOSE - HULL DOCKED DEVICE Routine 12/15/2024 8:11 PM TUBE CUTTER ECG 12-LEAD Routine 12/15/2024 6:38 PM TUBE CUTTER POCT GLUCOSE - HULL DOCKED DEVICE Routine 12/15/2024 4:00 PM TUBE CUTTER POCT GLUCOSE - HULL DOCKED DEVICE Routine 12/15/2024 11:28 AM TUBE CUTTER POCT GLUCOSE - HULL DOCKED DEVICE Routine 12/15/2024 5:12 AM TUBE CUTTER CBC, AUTO, NO DIFF Routine 12/15/2024 3: 14 AM TUBE CUTTER BASIC METABOLIC PANEL Routine 12/15/2024 3:14 AM TUBE CUTTER POCT GLUCOSE - HULL DOCKED DEVICE Routine 12/15/2024 12:28 AM TUBE CUTTER POCT GLUCOSE - HULL DOCKED DEVICE Routine 12/14/2024 7:57 PM TUBE CUTTER POCT GLUCOSE - HULL DOCKED DEVICE Routine 12/14/2024 5:42 PM TUBE CUTTER POCT GLUCOSE - HULL DOCKED DEVICE Routine 12/14/2024 1:28 PM TUBE CUTTER POCT GLUCOSE - HULL DOCKED DEVICE Routine 12/14/2024 6:26 AM TUBE CUTTER POCT GLUCOSE - HULL DOCKED DEVICE Routine 12/13/2024 10:49 PM TUBE CUTTER POCT GLUCOSE - HULL DOCKED DEVICE Routine 12/13/2024 9:20 PM TUBE CUTTER POCT GLUCOSE - HULL DOCKED DEVICE Routine 12/13/2024 6:12 PM TUBE CUTTER POCT GLUCOSE - HULL DOCKED DEVICE Routine 12/13/2024 11:57 AM TUBE CUTTER IMMUNOFIXATION, URINE 24 HR Routine 12/13/2024 11:30 AM TUBE CUTTER PROTEIN ELECTROPHORESIS URINE 24 HR Routine 12/13/2024 11:30 AM TUBE CUTTER PROTEIN TOTAL URINE 24 HR Nurse Collected Priority 12/13/2024 11:30 AM TUBE CUTTER Anemia, unspecified type POCT GLUCOSE - HULL DOCKED DEVICE Routine 12/13/2024 6:29 AM TUBE CUTTER CBC, AUTO, NO DIFF Routine 12/13/2024 2: 20 AM TUBE CUTTER BASIC METABOLIC PANEL Routine 12/13/2024 2:20 AM TUBE CUTTER POCT GLUCOSE - HULL DOCKED DEVICE Routine 12/12/2024 7:51 PM TUBE CUTTER POCT GLUCOSE - HULL DOCKED DEVICE Routine 12/12/2024 4:56 PM TUBE CUTTER XR CHEST PORTABLE Today 12/12/2024 12:15 PM TUBE CUTTER URIC ACID BLOOD Routine 12/12/2024 11:42 AM TUBE CUTTER Anemia, unspecified type LDH, LACTATE DEHYDROGENASE Routine 12/12/2024 11:42 AM TUBE CUTTER Anemia, unspecified type BETA 2 MICROGLOBULIN, SERUM (QST) Routine 12/12/2024 11:42 AM TUBE CUTTER Anemia, unspecified type POCT GLUCOSE - HULL DOCKED DEVICE Routine 12/12/2024 11:05 AM TUBE CUTTER POCT GLUCOSE - HULL DOCKED DEVICE Routine 12/12/2024 6:15 AM TUBE CUTTER CBC W/DIFF AUTOMATED Routine 12/12/2024 2:57 AM TUBE CUTTER BLOOD SMEAR INTERPRETATION BY Routine 12/12/2024 2:57 AM TUBE CUTTER Anemia, unspecified type CBC, AUTO, NO DIFF Routine 12/12/2024 2: 57 AM TUBE CUTTER BASIC METABOLIC PANEL Routine 12/12/2024 2:57 AM TUBE CUTTER CK (CPK) Routine 12/12/2024 2:57 AM TUBE CUTTER PATHOLOGY Routine 12/12/2024 12:00 AM TUBE CUTTER POCT GLUCOSE - HULL DOCKED DEVICE Routine 12/11/2024 8:40 PM TUBE CUTTER POCT GLUCOSE - HULL DOCKED DEVICE Routine 12/11/2024 12:36 PM TUBE CUTTER XR BONE SURVEY COMPLETE Today 12/11/2024 12:12 PM TUBE CUTTER IMMUNOFIXATION Routine 12/11/2024 8:44 AM TUBE CUTTER KAPPA LAMBDA FREE RATIO (QST) Routine 12/11/2024 8:44 AM TUBE CUTTER PROTEIN, ELECTROPHORESIS Routine 12/11/2024 8:44 AM TUBE CUTTER POCT GLUCOSE - HULL DOCKED DEVICE Routine 12/11/2024 5:36 AM TUBE CUTTER POCT GLUCOSE - HULL DOCKED DEVICE Routine 12/11/2024 12:31 AM TUBE CUTTER POCT GLUCOSE - HULL DOCKED DEVICE Routine 12/10/2024 11:38 PM TUBE CUTTER POCT GLUCOSE - HULL DOCKED DEVICE Routine 12/10/2024 8:10 PM TUBE CUTTER POCT GLUCOSE - HULL DOCKED DEVICE Routine 12/10/2024 7:31 PM TUBE CUTTER POCT GLUCOSE - HULL DOCKED DEVICE Routine 12/10/2024 5:29 PM TUBE CUTTER VANCOMYCIN TIMED 12/10/2024 10:03 AM TUBE CUTTER BASIC METABOLIC PANEL Routine 12/10/2024 7:04 AM TUBE CUTTER CBC W/DIFF AUTOMATED Routine 12/10/2024 7:[address] HIP RT WO CON Today 12/09/2024 12:15 PM TUBE CUTTER CBC W/DIFF AUTOMATED Routine 12/09/2024 3:26 AM TUBE CUTTER BASIC METABOLIC PANEL Routine 12/09/2024 3:26 AM TUBE CUTTER BASIC METABOLIC PANEL TIMED 12/07/2024 7:42 PM TUBE CUTTER VANCOMYCIN TIMED 12/07/2024 7:42 PM TUBE CUTTER BLOOD GAS, ARTERIAL LAB Routine 12/07/2024 6:21 AM TUBE CUTTER PRO-BRAIN NATRIURETIC PEPTIDE Routine 12/07/2024 6:21 AM TUBE CUTTER XR CHEST PORTABLE STAT 12/07/2024 5:2 4 AM TUBE CUTTER BASIC METABOLIC PANEL Routine 12/07/2024 1:53 AM TUBE CUTTER CBC W/DIFF AUTOMATED Routine 12/07/2024 1:53 AM TUBE CUTTER USE ECHOCARDIOGRAM W CON Today 12/06/2024 11:32 AM TUBE CUTTER CBC W/DIFF AUTOMATED STAT 12/06/2024 3:21 AM TUBE CUTTER COMPREHENSIVE METABOLIC PANEL Routine 12/06/2024 1:39 AM TUBE CUTTER BASIC METABOLIC PANEL TIMED 12/05/2024 8:42 PM TUBE CUTTER VANCOMYCIN TIMED 12/05/2024 6:44 PM TUBE CUTTER XR CHEST PORTABLE Today 12/05/2024 2:2 4 PM TUBE CUTTER XR SPEECH SWALLOW SJS ONLY Routine 12/05/2024 9:43 AM TUBE CUTTER BASIC METABOLIC PANEL Routine 12/05/2024 1:51 AM TUBE CUTTER MAGNESIUM Routine 12/05/2024 1:51 AM TUBE CUTTER CBC W/DIFF AUTOMATED Routine 12/05/2024 1:51 AM TUBE CUTTER POCT GLUCOSE - HULL DOCKED DEVICE Routine 12/04/2024 11:23 AM TUBE CUTTER XR CHEST PORTABLE Today 12/04/2024 8:4 6 AM TUBE CUTTER POCT GLUCOSE - HULL DOCKED DEVICE Routine 12/04/2024 6:03 AM TUBE CUTTER BASIC METABOLIC PANEL TIMED 12/04/2024 5:45 AM TUBE CUTTER PARTIAL THROMBOPLASTIN TIME,PTT TIMED 12/04/2024 5:45 AM TUBE CUTTER HEPARIN, ANTI XA, UFH TIMED 12/04/2024 5:45 AM TUBE CUTTER MAGNESIUM Routine 12/04/2024 5:45 AM TUBE CUTTER CBC W/DIFF AUTOMATED Routine 12/04/2024 5:45 AM TUBE CUTTER VANCOMYCIN TIMED 12/04/2024 5:45 AM TUBE CUTTER PARTIAL THROMBOPLASTIN TIME,PTT Routine 12/04/2024 12:15 AM TUBE CUTTER POCT GLUCOSE - HULL DOCKED DEVICE Routine 12/04/2024 12:04 AM TUBE CUTTER POCT GLUCOSE - HULL DOCKED DEVICE Routine 12/03/2024 4:38 PM TUBE CUTTER PARTIAL THROMBOPLASTIN TIME,PTT Routine 12/03/2024 4:34 PM TUBE CUTTER POCT GLUCOSE - HULL DOCKED DEVICE Routine 12/03/2024 11:32 AM TUBE CUTTER PARTIAL THROMBOPLASTIN TIME,PTT TIMED 12/03/2024 7:45 AM TUBE CUTTER CBC W/DIFF AUTOMATED Routine 12/03/2024 4:22 AM TUBE CUTTER MAGNESIUM Routine 12/03/2024 4:20 AM TUBE CUTTER BASIC METABOLIC PANEL Routine 12/03/2024 4:20 AM TUBE CUTTER PROCALCITONIN (PCT) STAT 12/02/2024 11:33 PM TUBE CUTTER LACTIC ACID STAT 12/02/2024 11:33 PM TUBE CUTTER PRO-BRAIN NATRIURETIC PEPTIDE STAT 12/02/2024 11:33 PM TUBE CUTTER POCT GLUCOSE - HULL DOCKED DEVICE Routine 12/02/2024 11:16 PM TUBE CUTTER BLOOD GAS, ARTERIAL LAB Routine 12/02/2024 11:10 PM TUBE CUTTER PARTIAL THROMBOPLASTIN TIME,PTT TIMED 12/02/2024 11:10 PM TUBE CUTTER LACTIC ACID TIMED 12/02/2024 9:50 PM TUBE CUTTER XR CHEST PORTABLE STAT 12/02/2024 7:0 2 PM TUBE CUTTER COMPREHENSIVE METABOLIC PANEL STAT 12/02/2024 6:58 PM TUBE CUTTER CBC W/DIFF AUTOMATED STAT 12/02/2024 6:58 PM TUBE CUTTER BLOOD GAS, ARTERIAL LAB STAT 12/02/2024 6:58 PM TUBE CUTTER LACTIC ACID Routine 12/02/2024 6:58 PM TUBE CUTTER CULTURE, BACTERIA, BLOOD STAT 12/02/2024 6:57 PM TUBE CUTTER ECG 12-LEAD STAT 12/02/2024 6:45 PM TUBE CUTTER POCT GLUCOSE - HULL DOCKED DEVICE Routine 12/02/2024 6:37 PM TUBE CUTTER PARTIAL THROMBOPLASTIN TIME,PTT TIMED 12/02/2024 6:12 PM TUBE CUTTER POCT GLUCOSE - HULL DOCKED DEVICE Routine 12/02/2024 4:26 PM TUBE CUTTER POCT GLUCOSE - HULL DOCKED DEVICE Routine 12/02/2024 12:15 PM TUBE CUTTER PARTIAL THROMBOPLASTIN TIME,PTT Routine 12/02/2024 10:46 AM TUBE CUTTER POCT GLUCOSE - HULL DOCKED DEVICE Routine 12/02/2024 6:07 AM TUBE CUTTER XR CHEST PORTABLE STAT 12/02/2024 5:3 9 AM TUBE CUTTER PARTIAL THROMBOPLASTIN TIME,PTT STAT 12/02/2024 4:07 AM TUBE CUTTER BASIC METABOLIC PANEL Routine 12/02/2024 1:17 AM TUBE CUTTER C-REACTIVE PROTEIN Routine 12/02/2024 1: 17 AM TUBE CUTTER POCT GLUCOSE - HULL DOCKED DEVICE Routine 12/01/2024 11:59 PM TUBE CUTTER PARTIAL THROMBOPLASTIN TIME,PTT STAT 12/01/2024 6:16 PM TUBE CUTTER POCT GLUCOSE - HULL DOCKED DEVICE Routine 12/01/2024 5:01 PM TUBE CUTTER PROTHROMBIN TIME, VENOUS STAT 12/01/2024 4:42 PM TUBE CUTTER HEPARIN, ANTI XA, UFH STAT 12/01/2024 4:42 PM TUBE CUTTER POCT GLUCOSE - HULL DOCKED DEVICE Routine 12/01/2024 11:23 AM TUBE CUTTER PRO-BRAIN NATRIURETIC PEPTIDE STAT 12/01/2024 4:58 AM TUBE CUTTER BLOOD GAS, VENOUS STAT 12/01/2024 4:5 8 AM TUBE CUTTER PHOSPHORUS, INORGANIC PHOSPHATE STAT 12/01/2024 4:58 AM TUBE CUTTER CBC W/DIFF AUTOMATED STAT 12/01/2024 4:58 AM TUBE CUTTER LACTIC ACID STAT 12/01/2024 4:58 AM TUBE CUTTER MAGNESIUM Routine 12/01/2024 4:58 AM TUBE CUTTER COMPREHENSIVE METABOLIC PANEL Routine 12/01/2024 4:58 AM TUBE CUTTER C-REACTIVE PROTEIN Routine 12/01/2024 4: [address] HEAD WO CON Today 11/30/2024 11:05 PM TUBE CUTTER BASIC METABOLIC PANEL TIMED 11/30/2024 8:43 PM TUBE CUTTER C-REACTIVE PROTEIN STAT 11/30/2024 4: 39 PM TUBE CUTTER BASIC METABOLIC PANEL STAT 11/30/2024 4:39 PM TUBE CUTTER VITAMIN B1 THIAMINE STAT 11/30/2024 4 :39 PM TUBE CUTTER THYROID STIM HORMONE TSH Routine 11/30/2024 4:39 PM TUBE CUTTER PROTHROMBIN TIME, VENOUS Routine 11/30/2024 4:39 PM TUBE CUTTER CBC W/DIFF AUTOMATED Routine 11/30/2024 4:39 PM TUBE CUTTER from Last 3 Months Results * (ABNORMAL) POCT glucose (12/18/2024 12:02 PM TUBE CUTTER) Only the most recent of47 resultswithin the time period is included. GLUCOSE POC 143(H) 70 - 109 12/18/2024 12:50 PM TUBE CUTTER [facility] 12/18/2024 12:0 2 PM TUBE CUTTER Donn Hoffman MD POCT ORDERABLES - DEVICE Final R esult [facility] [address] [place] [address], [id number] * USV VAST TEAM MIDLINE INSERT >5YR (12/18/2024 11:15 AM TUBE CUTTER) Anatomical Region Laterality Modality NA Vascular Ultraso und 12/18/2024 10:4 9 AM TUBE CUTTER Narrative 12/18/2024 10:49 AM TUBE CUTTER This report does not contain a radiologist's interpretation. Please review associated procedure and/or operative report. Procedure Note , Generic Conversion, - 12/18/2024 This report does not contain a radiologist's interpretation. Please review associated procedure and/or operative report. us Donn Hoffman MD [facility] Final Result * (ABNORMAL) BASIC METABOLIC PANEL (12/18/2024 9:13 AM TUBE CUTTER) Only the most recent of16 resultswithin the time period is included. SODIUM S/P/B 135(L) 136 - 145 MMOL/L 12/18/2024 9:45 AM TUBE CUTTER [facility] POTASSIUM S/P/B 4.5 3.5 - 5.1 MMOL/L 12/18/2024 9:45 AM [facility] CHLORIDE S/P/B 106 97 - 115 MMOL/L 12/18/2024 9:45 AM [facility] CO2 26.0 21.0 - 32.0 MMOL/L 12/18/2024 9:45 AM [facility] GLUCOSE 124(H) 74 - 106 MG/DL 12/18/2024 9:45 AM [facility] BUN 28(H) 7 - 18 MG/DL 12/18/2024 9:45 AM [facility] CREATININE S/P/B 1.33(H) 0.70 - 1.30 MG/DL 12/18/2024 9:45 AM [facility] CALCIUM S/P/B 8.9 8.5 - 10.1 MG/DL 12/18/2024 9:45 AM [facility] ANION GAP 3.0 2.0 - 10.0 MMOL/L 12/18/2024 9:45 AM [facility] OSMOLALITY (CALC) 287 MOSM/KG 025 9:45 AM [facility] Comment:REFERENCE RANGE NOT ESTABLISHED GFR ESTIMATE 58(L) >90 ML/MIN/1. 73 M2 12/18/2024 9:45 AM [facility] GFR NOTES GFR REFERENCE S: 12/18/2024 9:45 AM [facility] Comment: THE ESTIMATED GFR IS CALCULATED USING THE 2020 CKD-EPI EQUATION. THE FOLLOWING CATEGORIES FOR GRADING RENAL FUNCTION ARE RECOMMENDED BY THE INTERNATIONAL SOCIETY OF NEPHROLOGY (KDIGO 2012 CLINICAL PRACTICE GUIDELINE). G1,NORMAL OR HIGH: >89 ml/min/1.73 m2 G2,MILDLY DECREASED: 60-89 ml/min/1.73 m2 G3A,MILDLY TO MODERATELY DECREASED: 45-59 ml/min/1.73 m2 G3B,MODERATELY TO SEVERELY DECREASED: 30-44 ml/min/1.73 m2 G4,SEVERELY DECREASED: 15-29 ml/min/1.73 m2 G5,KIDNEY FAILURE: <15 ml/min/1.73 m2 12/18/2024 9:13 AM [facility] us Donn Hoffman MD LABORATORY Final Result [facility] [address] [place] [id number], [id number] * CT GD ASPIR+BX BONE MARROW (12/17/2024 9:07 AM [facility]) Anatomical Region Laterality Modality Bone Computed Tomogra phy 12/18/2024 8:50 AM [facility] Impressions 12/18/2024 10:53 AM [facility] IMPRESSION: CT-guided percutaneous bone marrow biopsy, ??as described. The attending radiologist, Dr. Glasgow, was in the department for all critical portions of the procedure, has reviewed the images, and agrees with the content of this report. Dictated By: VEL Dove on 12/18/2024 8:50 AM Ordered By: DIONICIO BAKER Interpreted By: VEL Dove, 12/18/2024 8:50 AM Narrative 12/18/2024 10:53 AM [facility] [address] [id number] PROCEDURE: CT-GUIDED BONE MARROW ASPIRATION AND BIOPSY DATE OF PROCEDURE: 12/17/2024 8:27 AM INDICATION: Anemia. Concern for myeloma. Primary provider: Jacob Campos PA-C Supervising provider: Reyes Glasgow M.D. Conscious sedation: Administered and monitored by a qualified interventional radiology nurse under supervision of the interventional physician veterinary assistant technician. There was continuous monitoring of vital signs including pulse oximetry, end-tidal CO2, and EKG. Total intraservice or [id number] sedation time: 4 minutes. TECHNIQUE AND FINDINGS: Informed written consent was obtained. The patient was then brought to the CT scanner suite, placed in the prone position, and [place] protocol was observed to verify correct patient, site, and procedure to be performed Preliminary CT scan was then performed ??demonstrating normal bone mineralization. A safe path of approach to the left posterior iliac crest was selected. The skin was marked, sterilely prepared, and draped. Subsequently, after administration of local anesthesia using buffered 1% lidocaine, a 22 gauge needle was advanced to the periosteum and 0.5% Marcaine was administered for longer acting periosteal anesthesia. An introducer needle was advanced to the posterior medial cortex under intermittent CT visualization. The needle was then connected to an Loccit (ML4D) motorized device to penetrate the cortex. At this point, the stylette was removed and serial aspiration of a total of 10 mL of marrow was obtained. ??Following this, again using the motorized device, a roughly 2 cm marrow core sample was obtained. The needle was removed and a sterile dressing was applied. Followup CT imaging demonstrated no evidence of hematoma or other complication. The patient tolerated the procedure well without any complication and was transferred to recovery area in stable condition. A dose lowering technique was used for this procedure, which may include, but is not limited to, dose reduction techniques, automated exposure control, the use of a iterative reconstruction, and ALARA (as low as reasonably achievable)/image gently techniques. EBL: Minimal Procedure Note Reyes Glasgow MD - 12/18/[address] [address] PROCEDURE: CT-GUIDED BONE MARROW ASPIRATION AND BIOPSY DATE OF PROCEDURE: 12/17/2024 8:27 AM INDICATION: Anemia. Concern for myeloma. Primary provider: Jacob Campos PA-C Supervising provider: Reyes Glasgow M.D. Conscious sedation: Administered and monitored by a qualifiedinterventional radiology nurse under supervision of the interventionalphysician veterinary assistant technician. There was continuous monitoring of vital signsincluding pulse oximetry, end-tidal CO2, and EKG. Total intraservice [id number]-brri sedation time: 4 minutes. TECHNIQUE AND FINDINGS: Informed written consent was obtained. The patient was then brought to theCT scanner suite, placed in the prone position, and [place] protocol wasobserved to verify correct patient, site, and procedure to be performedPreliminary CT scan was then performed demonstrating normal bonemineralization. A safe path of approach to the left posterior iliac crestwas selected. The skin was marked, sterilely prepared, and draped.Subsequently, after administration of local anesthesia using buffered 1%lidocaine, a 22 gauge needle was advanced to the periosteum and 0.5%Marcaine was administered for longer acting periosteal anesthesia. Anintroducer needle was advanced to the posterior medial cortex underintermittent CT visualization. The needle was then connected to anOnControl motorized device to penetrate the cortex. At this point, thestylette was removed and serial aspiration of a total of 10 mL of marrowwas obtained. Following this, again using the motorized device, a roughly2 cm marrow core sample was obtained. The needle was removed and a steriledressing was applied. Followup CT imaging demonstrated no evidence ofhematoma or other complication. The patient tolerated the procedure wellwithout any complication and was transferred to recovery area in stablecondition. A dose lowering technique was used for this procedure, which may include,but is not limited to, dose reduction techniques, automated exposurecontrol, the use of a iterative reconstruction, and ALARA (as low asreasonably achievable)/image gently techniques. EBL: Minimal IMPRESSION: CT-guided percutaneous bone marrow biopsy, as described. The attending radiologist, Dr. Glasgow, was in the department for allcritical portions of the procedure, has reviewed the images, and agreeswith the content of this report. Dictated By: VEL Dove on 12/18/2024 8:50 AM Ordered By: DIONICIO BAKER Interpreted By: VEL Dove, 12/18/2024 8:50 AM us Dionicio Baker MD CT Final Result * Flow Cytometry (12/17/2024 9:00 AM TUBE CUTTER) FLOW CYTOMETRY RESULTS [facility] ? Department of Laboratory Medicine ?[address] ?[place] [address] ? , extension [phone] ? Pathology Report ? Flow Cytometry Report Name: TERRI DEVRIES ? Specimen #: [id number] Age: 6 1955 (Age: 69) ?Location: [facility] Sex: M ?Procedure Date: 12/17/2024 [facility] #: [id number] ?Date Received: 12/17/2024 Date Reported: 12/23/2024 Provider: DIONICIO BAKER MD Source: Bone marrow aspiration (See report [id number]) FINAL DIAGNOSIS: Bone marrow aspirate, flow cytometric analysis: ? -No significant immunophenotypic abnormality is identified, see comments. Diagnosis Comment: Flow cytometric analysis of this bone marrow aspirate sample detects no abnormal B-cell, T-cell, plasma cell, or blast population. See also the bone marrow biopsy ([id number]) which is reviewed concurrently. Result: Tested: CD45, CD19, CD20, Surface Buhler, Surface Lambda, CD5, CD10, CD38, CD34, CD14, CD117, CD4, CD8, CD3, CD7, CD56, CD13, CD33, CD64, CD11b, HLA-DR, CD138, cKappa, cLambda. The specimen viability is 95%. Cells in the CD45 dim / low side scatter blast gate represent approximately 1% of cells analyzed. No overt atypical blast population is identified. Lymphocytes comprise approximately 2% of cells analyzed, of which approximately 73% are CD3+ T-cells and approximately 16% are CD19+ B-cells. The B-cells show polytypic kappa and lambda light chain expression and are immunophenotypically unremarkable. The T-cells show mildly elevated CD4/CD8 ratio (4.3) with retained CD5 and CD7 expression. CD38+(bright) plasma cells represent 0.3% of total events and show polytypic kappa and lambda light chain expression. ? Gross examination (when applicable), interpretation, and sign out were performed at [facility], [address] [place] [address]. ? Electronically Signed Out ? RUBEN RIVERS MD This test was developed and its performance characteristics determined by [facility]. It has not been cleared or approved by the U.S. Food and Drug Administration. However, the use of Analyte Specific Reagents does not require FDA approval. [facility] 12/17/2024 9:00 AM TUBE CUTTER 12/17/2024 9:15 AM TUBE CUTTER Comment:Bone marrow aspirati on (See report [id number]) us Dionicio Baker MD PATHOLOGY/CYTOLOGY ORDERABLES Fi nal Result [facility] [address] [place] [address], [phone] * (ABNORMAL) PROTIME/INR, VENOUS (12/17/2024 8:00 AM TUBE CUTTER) Only the most recent of3 resultswithin the time period is included. PROTIME 13.8(H) 9.4 - 12.5 SEC 12/17/2024 8:29 AM [facility] INR 1.2(H) 0.8 - 1.1 12/17/2024 8:29 AM [facility] 12/17/2024 8:00 AM TUBE CUTTER us Ryees Glasgow MD LABORATORY Final Resu lt [facility] [address] [place] [address], [place] [phone] * (ABNORMAL) CBC W/DIFF AUTOMATED (12/17/2024 3:45 AM TUBE CUTTER) Only the most recent of12 resultswithin the time period is included. WBC 4.81 4.00 - 10.80 x10'3/uL 12/17/2024 4:27 AM [facility] RBC 3.07(L) 4.50 - 6.10 x10'6/uL 12/17/2024 4:27 AM [facility] HGB 9.8(L) 12.0 - 16.0 G/DL 12/17/2024 4:27 AM [facility] HCT 30.4(L) 37.0 - 52.0 % 12/17/2024 4:27 AM [facility] MCV 99.0 78.0 - 100.0 FL 12/17/2024 4:27 AM [facility] MCH 31.9(H) 27.0 - 31.0 PG 12/17/2024 4:27 AM [facility] MCHC 32.2(L) 33.0 - 36.0 G/DL 12/17/2024 4:27 AM [facility] RDW 13.6 11.5 - 14.5 % 12/17/2024 4:27 AM [facility] PLT 207 150 - 350 x10'3/uL 12/17/2024 4:27 AM [facility] MPV 11.3(H) 7.4 - 10.4 FL 12/17/2024 4:27 AM [facility] DIFFERENTIAL TYPE AUTOMATED DIFFERENTIAL 12/17/2024 4:27 AM [facility] SEG NEUTROPHILS 60.5 % 4:27 AM [facility] LYMPHOCYTES 22.5 % 12/17/2024 4:27 AM [facility] MONOCYTES 12.9 % 12/17/2024 4:27 AM [facility] EOSINOPHILS 3.3 % 12/17/2024 4:27 AM [facility] BASOPHILS 0.4 % 12/17/2024 4:27 AM [facility] IMMATURE GRANS % 0.4 % 12/17/19 4:27 AM [facility] ABS. NEUTROPHILS 2.91 1.60 - 8.30 x10'3/uL 12/17/2024 4:27 AM [facility] ABS. LYMPHOCYTES 1.08 0.80 - 4.70 x10'3/uL 12/17/2024 4:27 AM [facility] ABS. MONOCYTES 0.62 0.00 - 1.50 x10'3/uL 12/17/2024 4:27 AM [facility] ABS. EOSINOPHILS 0.16 0.00 - 0.40 x10'3/uL 12/17/2024 4:27 AM [facility] ABS. BASOPHILS 0.02 0.00 - 0.20 x10'3/uL 12/17/2024 4:27 AM [facility] ABS. IMMATURE GRANULOCYTES 0.02 0.00 - 0.03 x10'3/uL 12/17/2024 4:27 AM [facility] ABS. NUCLEATED RBC'S 0.00 0.00 - 0.01 x10'3/uL 12/17/2024 4:27 AM TUBE CUTTER [facility] NRBC % 0.0 % 12/17/2024 4:27 AM TUBE CUTTER [facility] 12/17/2024 3:45 AM TUBE CUTTER us Donn Hoffman MD LABORATORY Final Result [facility] [address] [place] [address], [phone] * Pathology (12/17/2024 12:00 AM TUBE CUTTER) Only the most recent of2 resultswithin the time period is included. PATHOLOGY [facility] ? Department of Laboratory Medicine ?[address] ?[place] [address] ? , [facility] [phone] ? Pathology Report ? Bone Marrow Report Name: TERRI DEVRIES ? Specimen #: [id number] Age: 6 1955 (Age: 69) ?Location: [facility] Sex: M ?Procedure Date: 12/17/2024 Hospital #: [id number] ?Date Received: 12/17/2024 Date Reported: 12/23/2024 Provider: LARA RAMOS MD ?SAVANAH DAVILA MD ?MARC PAZ MD ?MIGNON KRAUSE MD ?OBGAGEA Bhaskar JOHN MD ?JESU DUVAL MD ?DONN HOFFMAN MD Source: A: Bone marrow, left iliac aspiration B: Bone marrow left iliac biopsy Clinical History: Rule out myeloma. FINAL DIAGNOSIS: A, B) Bone marrow, left, biopsy and touch preparation, aspirate and clot section, and peripheral blood smear: ? -Limited sample with focal normocellular (30%) marrow with maturing trilineage hematopoiesis and no diagnostic evidence of plasma cell neoplasm, see comments. ? -Peripheral blood with mild normocytic anemia. Diagnosis Comment: The patient's history of anemia, acute kidney injury on chronic kidney disease, and recent imaging studies showing multifocal bone lucencies is noted. The recent serum and urine immunofixation electrophoresis studies showing no monoclonal protein is noted. Evaluation of the core biopsy is limited by marked aspiration artifact. Focal evaluable areas show normocellular (30%) marrow with maturating trilineage hematopoiesis. A focal small lymphoid aggregate is seen. Immunohistochemical stains performed on the core biopsy (block B1) highlight few small lymphoid aggregates composed of mixed CD3+ T-cells and CD20+ B-cells, favored to represent small reactive lymphoid aggregates. CD138 stain highlights occasional scattered plasma cells which are mildly increased overall (approximately 5%). Clot section contains rare small foci of cellular marrow with maturating trilineage hematopoiesis and few scattered plasma cells. The touch preparation is hypocellular and the aspirates are paucispicular and variably cellular, limiting overall evaluation. Noting these limitations, maturing trilineage hematopoiesis is observed with mildly increased plasma cells (6% on 300-cell differential count). ?? Flow cytometric analysis detects no abnormal B-cell, T-cell, plasma cell, or blast population (see separate report [id number]). In summary, there is no diagnostic evidence of plasma cell neoplasm identified in this limited bone marrow sample. The mild plasmacytosis is favored to be reactive in nature given the morphologic and immunophenotypic findings as described in the report. Gross Description: A. ??Received in B-plus fixative, labeled with a patient label and as BM LIC, is a 1.0 x 0.4 x 0.3 cm rubbery hemorrhagic tissue. ??The specimen is entirely submitted in cassette A1. B. ??Received in B-plus fixative, labeled with a patient label and as BX LIC, is a 1.2 x 0.2 cm porter-red bone core that displays a small amount of attached rubbery, hemorrhagic tissue. ??The specimen is entirely submitted in cassette B1 following decalcification in Immunodecal. Gross examination (when applicable), interpretation, and sign out were performed at [facility], [address] [place] [address]. All immunohistochemical and histochemical tests were developed by and performed at [facility], [address] [place] [address]. All tests reported here have not been cleared or approved by the U.S. Food and Drug Administration (FDA). This laboratory is regulated under CLIA as qualified to perform high-complexity testing. These tests are used for clinical purposes. They should not be regarded as investigational or for research. Positive and negative controls show appropriate reactivity. ?? Electronically Signed Out ? RUBEN RIVERS MD INTERPRETATION: Peripheral Blood Comments: CBC data: WBC: 4.81 x K/uL; Hgb: 9.8 g/dL; Hct: 30.4%; MCV: 99.0 fl; MCHC: 32.2 g/dl; RDW: 13.6%; Plt: 207 K/uL Automated differential: IG 0.4%, neutrophils 60.5%, lymphocytes 22.5%, monocytes 12.9%, eosinophils 3.3%, basophils 0.4% Blood smear findings: The leukocyte count is within normal limits with a differential as per the CBC. The leukocyte morphology is unremarkable. No overt atypical lymphoid population is identified. No circulating plasma cells or blasts are identified. There is mild normocytic hypochromic anemia with unremarkable red cell morphology. The platelet count is within normal limits. The platelet morphology is unremarkable. Bone Marrow Report: Specimen quality: The aspirates are paucispicular and variably cellular. The staining is adequate. The touch preparation is hypocellular. Bone marrow aspirate smear differential (300 cells): Blasts: 0% Promyelocytes: 0% Myelocytes: 10% Metamyelocytes: 1% Bands/neutrophils: 28% Lymphocyte: 10% Monocytes: 2% Eosinophils: 4% Basophils: 0% Erythroids: 39% Plasma cells: 6% M:E Ratio: The myeloid to erythroid ratio is 1.2. Erythropoiesis: Adequate with maturation. No significant dysplasia. Granulopoiesis: Adequate with maturation. No significant dysplasia. No increased blasts. Megakaryocytes: Adequate. No significant dysplasia. Lymphocytes: Not increased. No overt atypical lymphoid population is identified. Plasma cells: Mildly increased. Predominantly small to intermediate size with unremarkable morphology. Iron stain: Iron stores cannot be evaluated due to paucispicular iron stained aspirate. Ring sideroblasts are not identified. The iron control shows appropriate reactivity. Biopsy findings: Evaluation of the core biopsy is limited by marked aspiration artifact. Focal evaluable areas show normocellular (30%) marrow with maturating trilineage hematopoiesis. Megakaryocytes are focally mildly increased without overt atypia or clustering. There is a focal small lymphoid aggregate composed of small, mature lymphocytes. No overt atypical lymphoid infiltrate or plasma cell infiltrate is identified. The clot section contains rare small foci of cellular marrow with maturing trilineage hematopoiesis and few scattered plasma cells. Immunohistochemical stains: Block B1 (core biopsy): CD138 highlights scattered, mildly increased plasma cells (approximately 5% overall) CD3 highlights scattered T-cells and T-cell subsets within focal small lymphoid aggregates CD20 highlights scattered B-cells and B-cell subsets within focal small lymphoid aggregates CD5 highlights cells in a pattern similar to the CD3 stain, consistent with positive staining of T-cells and negative in B-cells Flow cytometric analysis (marrow aspirate): Flow cytometric analysis detects no abnormal B-cell, T-cell, plasma cell, or blast population (see separate report [id number]). Cytogenetics/FISH: Not performed. [facility] 12/17/2024 12/17/2024 10: 22 AM TUBE CUTTER Comment:Bone marrow, left il iac aspiration&Bone marrow left iliac biopsy us Lara Ramos MD PATHOLOGY/CYTOLOGY ORDERABLES Final Result [facility] [address] [place] [address], [phone] * ECG 12 lead (12/15/2024 6:38 PM TUBE CUTTER) Only the most recent of2 resultswithin the time period is included. 12/15/2024 6:38 PM TUBE CUTTER Narrative [facility] - 12/15/2024 6:58 PM TUBE CUTTER ? [facility] ?[address], [place] ??[address] ? Test Date: ?2024-12-15 Pat Name: ? TERRI DEVRIES ? Department: ?? 1 ? Room: ? 816AA Gender: ? Male ? Senior Report Developer: ?? Ms : ?1955 ? Requested By: DONN HOFFMAN Order Number: [id number] ? Reading MD: ?? Viv Seo ? Measurements Intervals ?[place] ? Rate: ? 101 ?P: ? MD: ? 0 ?QRS: ?-55 QRSD: ? 105 ?T: ?131 QT: ? 374 ? QTc: ?486 ? Interpretive Statements ATRIAL FIBRILLATION WITH RAPID VENTRICULAR RESPONSE LEFT ANTERIOR FASCICULAR BLOCK ??[QRS AXIS <= -45, QR IN I, RS IN II] PROBABLE SEPTAL MYOCARDIAL INFARCTION , PROBABLY OLD [35 ms Q WAVE IN V1/V2] CUTTER Procedure Note Viv Seo MD - 12/15/2024 [facility] [address] [place] [address] Test Date: 2024-12-15 Pat Name: TERRI DEVRIES Department: 1 Room: 81A Gender: Male Senior Report Developer: : 1955 Requested By: DONN HOFFMAN Order Number: [id number] Reading MD: Viv Seo Measurements Intervals [place] Rate: 101 P: MD: 0 QRS: -55 QRSD: 105 T: 131 QT: 374 QTc: 486 Interpretive Statements ATRIAL FIBRILLATION WITH RAPID VENTRICULAR RESPONSE LEFT ANTERIOR FASCICULAR BLOCK [QRS AXIS <= -45, QR IN I, RS IN II] PROBABLE SEPTAL MYOCARDIAL INFARCTION , PROBABLY OLD [35 ms Q WAVE INV1/V2] CUTTER us Donn Hoffman MD ECG ORDERABLES Final Result [facility] * (ABNORMAL) CBC, AUTO, NO DIFF (12/15/2024 3:14 AM TUBE CUTTER) Only the most recent of3 resultswithin the time period is included. WBC 6.63 4.00 - 10.80 x10'3/uL 12/15/2024 3:56 AM TUBE CUTTER [facility] RBC 3.27(L) 4.50 - 6.10 x10'6/uL 12/15/2024 3:56 AM TUBE CUTTER [facility] HGB 10.7(L) 12.0 - 16.0 G/DL 12/15/2024 3:56 AM TUBE CUTTER [facility] HCT 32.4(L) 37.0 - 52.0 % 12/15/2024 3:56 AM TUBE CUTTER [facility] MCV 99.1 78.0 - 100.0 FL 12/15/2024 3:56 AM TUBE CUTTER [facility] MCH 32.7(H) 27.0 - 31.0 PG 12/15/2024 3:56 AM TUBE CUTTER [facility] MCHC 33.0 33.0 - 36.0 G/DL 12/15/2024 3:56 AM [facility] RDW 13.6 11.5 - 14.5 % 12/15/2024 3:56 AM [facility] PLT 184 150 - 350 x10'3/uL 12/15/2024 3:56 AM [facility] MPV 11.4(H) 7.4 - 10.4 FL 12/15/2024 3:56 AM [facility] 12/15/2024 3:14 AM TUBE CUTTER us Donn Hoffman MD LABORATORY Final Result Performing Organization Address [facility] de Phone Number [facility] [address] [place] [address], [phone] * IMMUNOFIXATION, URINE 24 HR (12/13/2024 11:30 AM TUBE CUTTER) IMMUNOFIXATION 24HR (U) SEE PATHOLOGIST'S INTERPRETATION 12/17/2024 1:01 PM [facility] IMMUNOFIXATION INTERPRETATION 24HR THIS URINE IMMUNOTYPING WAS INTERPRETED BY 12/18/2024 12:30 PM [facility] Comment: DR MELO MONTOYA MONOCLONAL PROTEIN NOT IDENTIFIED BENCE PINA PROTEIN NOT DETECTED. 12/13/2024 11:3 0 AM TUBE CUTTER us Donn Hoffman MD URINE ORDERABLES Final Result Performing Organization Address [facility] Co de Phone Number [facility] [address] [place] [address], [place] [phone] * (ABNORMAL) PROTEIN TOTAL URINE 24 HR (12/13/2024 11:30 AM TUBE CUTTER) PROTEIN URINE TOTAL RANDOM 79.1(H) <12.0 MG/DL 12/13/2024 12:41 PM TUBE CUTTER [facility] TOTAL PROTEIN 24HR (U) 1,146.95(H ) 0 - 149 MG/24HR 12/13/2024 12:41 PM TUBE CUTTER [facility] VOLUME (U) 1,450 ML 12/13/2024 12:16 PM TUBE CUTTER [facility] URINE SPECIMEN / Unknown 12/13/2024 11:30 AM TUBE CUTTER Nhung Seo MD URINE ORDERABLES Final Result Performing Organization Address [facility] de Phone Number [facility] [address] [place] [address], [place] [phone] * (ABNORMAL) PROTEIN ELECTROPHORESIS URINE 24 HR (12/13/2024 11:30 AM TUBE CUTTER) TOTAL PROTEIN 24HR (U) 1,147.0(H) <100 MG/24HRS 12/17/2024 12:59 PM TUBE CUTTER [facility] INTERPRETATION THIS URINE PEP WAS INTERPRETED BY 12/18/2024 12:30 PM [facility] Comment: DR MELO MONTOYA THERE IS MODERATE 24 HOUR PROTEINURIA COMPOSED OF LOWER MOLECULAR WEIGHT PROTEINS (SELECTIVE PROTEINURIA). BENCE PINA PROTEIN IS NOT DETECTED. 12/13/2024 11:3 0 AM TUBE CUTTER Donn Hoffman MD URINE ORDERABLES Final Result Performing Organization Address [facility] Co de Phone Number [facility] [address] [place] [address], [place] [phone] * XR CHEST PORTABLE (12/12/2024 12:15 PM TUBE CUTTER) Only the most recent of6 resultswithin the time period is included. Anatomical Region Laterality Modality Chest Radiographic Modesta ging 12/12/2024 3:21 PM TUBE CUTTER Impressions 12/12/2024 3:22 PM TUBE CUTTER IMPRESSION: 1. ??NO SIGNIFICANT INTERVAL CHANGE. Signed: Diogenes Arriaga MD Referred By: MINA YOU Interpreted By: Diogenes Arriaga MD, 12/12/2024 3:21 PM Narrative 12/12/2024 3:22 PM TUBE CUTTER [address] [address] PATIENT NAME: TERRI DEVRIES EXAM: Chest one view DATE OF EXAM: 12/12/2024 COMPARISON EXAM: 12/07/2024 INDICATION: CHF TECHNIQUE: AP chest FINDINGS: Shallow inspiration. ??Mild cardiomegaly similar to previous study. ??Thoracic aorta remains mildly ectatic and tortuous. ??Mild pulmonary vascular congestion and edema similar to previous study. ??No new airspace consolidation. ??No gross pleural effusion. Procedure Note Diogenes Arriaga MD - 12/12/[address] [address] PATIENT NAME: TERRI DEVRIES EXAM: Chest one view DATE OF EXAM: 12/12/2024 COMPARISON EXAM: 12/07/2024 INDICATION: CHF TECHNIQUE: AP chest FINDINGS: Shallow inspiration. Mild cardiomegaly similar to previousstudy. Thoracic aorta remains mildly ectatic and tortuous. Mildpulmonary vascular congestion and edema similar to previous study. No newairspace consolidation. No gross pleural effusion. IMPRESSION: 1. NO SIGNIFICANT INTERVAL CHANGE. Signed: Diogenes Arriaga MD Referred By: MINA YOU Interpreted By: Diogenes Arriaga MD, 12/12/2024 3:21 PM Donn Hoffman MD GENERAL IMAGING Final Result * (ABNORMAL) LDH, LACTATE DEHYDROGENASE (12/12/2024 11:42 AM TUBE CUTTER) LDH 280(H) 87 - 241 UNITS/L 12/12/2024 12:26 PM TUBE CUTTER [facility] 12/12/2024 11:4 2 AM TUBE CUTTER us Nhung Seo MD LABORATORY Final Result Performing Organization Address [facility] Co de Phone Number [facility] [address] [place] [address], [place] [phone] * (ABNORMAL) BETA 2 MICROGLOBULIN, SERUM (QST) (12/12/2024 11:42 AM TUBE CUTTER) BETA-2 MICROGLOBULIN 4.88(H) <=2.51 mg/L 12/17/2024 7:41 AM TUBE CUTTER [facility] ESTELA TAPIA Comment: Test Performed by Tam Hurtado, [employer] [facility], [address] [place] [address] Melo Huertas M.D., Ph.D., Director of Laboratories , [facility] [id number] 12/12/2024 11:4 2 AM TUBE CUTTER us Nhung Seo MD LABORATORY Final Result Performing Organization Address [facility] Co de Phone Number [email or web address] [address] [address], [place] [phone] * URIC ACID BLOOD (12/12/2024 11:42 AM TUBE CUTTER) URIC ACID 5.7 3.5 - 7.2 MG/DL 12/12/2024 12:26 PM TUBE CUTTER [facility] 12/12/2024 11:4 2 AM TUBE CUTTER us Nhung Seo MD LABORATORY Final Result Performing Organization Address [place] Hospital/ZIP Co de Phone Number [facility] [address] [place] [address], [place] [phone] * BLOOD SMEAR INTERPRETATION BY (12/12/2024 2:57 AM TUBE CUTTER) CBC PATHOLOGIST COMMENT SENT TO PATHOLOGIST FOR REVIEW 12/12/2024 11:17 AM TUBE CUTTER [facility] 12/12/2024 2:57 AM TUBE CUTTER Nhung Seo MD LABORATORY Final Result Performing Organization Address [facility]/ZIP Co de Phone Number [facility] [address] [place] [address], [id number] * CK (CPK) - Weekly starting tomorrow (12/12/2024 2:57 AM TUBE CUTTER) CPK 54 39 - 308 U/L 12/12/2024 3:35 AM TUBE CUTTER [facility] 12/12/2024 2:57 AM TUBE CUTTER Tawana Barker NP LABORATORY Final Result Performing Organization Address [facility] de Phone Number [facility] [address] [place] [address], [id number] * XR BONE SURVEY COMPLETE (12/11/2024 12:12 PM TUBE CUTTER) Anatomical Region Laterality Modality Bone Radiographic Modesta ging 12/11/2024 10:2 4 PM TUBE CUTTER Impressions 12/11/2024 10:37 PM TUBE CUTTER IMPRESSION: 1. ??Scattered lucencies seen in the kianna, some of which may correspond to the known lytic lesions in the right ilium. 2. ??Approximately 4 cm lucency in the right proximal humeral diaphysis with additional approximately 9 mm lucency in the distal right humeral diaphysis and questionable ill-defined lucencies in the left humeral diaphysis as above. 3. ??Further evaluation with multiple myeloma workup, CT chest, abdomen, pelvis to evaluate for primary neoplasm, or whole body bone scan is recommended. ??If further evaluation of any of these lesions is clinically warranted, dedicated MRI with and without intravenous contrast could be obtained. Referred By: MINA YOU Interpreted By: Zeke Calzada DO, 12/11/2024 10:24 PM Narrative 12/11/2024 10:37 PM TUBE CUTTER [address] [address] Examination: XR BONE SURVEY COMPLETE Exam time: 12/11/2024 11:35 AM Clinical history: Bone lesions, elevated corrected calcium, acute kidney injury, possible myeloma. Comparison: CT head 12/09/2024, chest radiograph 12/07/2024, and CT head 11/30/2024. Technique: Skeletal survey, with AP and lateral views of the calvarium, AP and lateral views of the cervical spine, AP view of the chest, AP and lateral views of the thoracic spine, AP and lateral views of the lumbar spine, AP view of the pelvis, and AP view of each femur, tibia/fibula, humerus, and forearm (21 total images). Findings: No destructive calvarial lesion is seen. ??There is scattered dental amalgam. Suboptimal positioning on the lateral view degrades evaluation of the cervical spine. ??The lower cervical spine and cervicothoracic junction are also partially obscured on the lateral view due to overlying anatomy. ??No destructive osseous lesion is seen in the cervical spine. ??There is multilevel facet joint osteoarthritis. ??Carotid atherosclerotic calcifications are noted. There is cardiomegaly, appearing similar to the prior examination. ??Pulmonary vasculature is appropriately distributed. ??The lungs are clear of active opacities. ??No sizable pleural effusion or pneumothorax is seen. ??There is elevation of the left hemidiaphragm appearing similar to the prior examination. ??Old, healed right fourth through ninth rib fractures are noted. ??No discrete destructive osseous lesion is seen. Multilevel degenerative disc disease affects the thoracic spine. ??No discrete destructive osseous lesion is seen in the thoracic spine. Multilevel degenerative disc disease affects the lumbar spine, greatest at L5- S1. ??Multilevel facet joint osteophytes arthritis affects the lumbar spine, greatest in the lower lumbar spine. ??No destructive osseous lesion is seen in the lumbar spine. The sacrum and coccyx are largely obscured due to contrast in the distal colon and rectum. ??Note is made of colonic diverticulosis. ??Scattered lucencies are noted within both kianna, some of which may correspond to the known lytic lesions in the right ilium. ??Atherosclerotic calcifications are noted. No destructive osseous lesion is seen in either femur. ??Atherosclerotic calcifications are noted in both sides. No destructive osseous lesion is seen in either tibia or fibula. There is an approximately 4 cm lucency within the medial aspect of the proximal right humeral diaphysis without overlying cortical thinning. ??An additional approximately 9 mm lucency is noted in the distal right humeral diaphysis. ??Suture anchors are noted in the left humeral head reflecting prior rotator cuff repair. ??There is a questionable approximately 7 mm lucency in the mid left humeral diaphysis as well as a questionable 12 mm lucency in the proximal left humeral diaphysis. No destructive osseous lesion is seen in either forearm. ??Orthopedic hardware affixes presumed healed right radial and ulnar diaphyseal fractures. Procedure Note Zeke Calzada, DO - 12/11/[address] [address] Examination: XR BONE SURVEY COMPLETE Exam time: 12/11/2024 11:35 AM Clinical history: Bone lesions, elevated corrected calcium, acute kidneyinjury, possible myeloma. Comparison: CT head 12/09/2024, chest radiograph 12/07/2024, and CT head11/30/2024. Technique: Skeletal survey, with AP and lateral views of the calvarium, APand lateral views of the cervical spine, AP view of the chest, AP andlateral views of the thoracic spine, AP and lateral views of the lumbarspine, AP view of the pelvis, and AP view of each femur, tibia/fibula,humerus, and forearm (21 total images). Findings: No destructive calvarial lesion is seen. There is scattered dentalamalgam. Suboptimal positioning on the lateral view degrades evaluation of thecervical spine. The lower cervical spine and cervicothoracic junction arealso partially obscured on the lateral view due to overlying anatomy. Nodestructive osseous lesion is seen in the cervical spine. There ismultilevel facet joint osteoarthritis. Carotid atheroscleroticcalcifications are noted. There is cardiomegaly, appearing similar to the prior examination.Pulmonary vasculature is appropriately distributed. The lungs are clearof active opacities. No sizable pleural effusion or pneumothorax is seen.There is elevation of the left hemidiaphragm appearing similar to theprior examination. Old, healed right fourth through ninth rib fracturesare noted. No discrete destructive osseous lesion is seen. Multilevel degenerative disc disease affects the thoracic spine. Nodiscrete destructive osseous lesion is seen in the thoracic spine. Multilevel degenerative disc disease affects the lumbar spine, greatest atL5-S1. Multilevel facet joint osteophytes arthritis affects the lumbarspine, greatest in the lower lumbar spine. No destructive osseous lesionis seen in the lumbar spine. The sacrum and coccyx are largely obscured due to contrast in the distalcolon and rectum. Note is made of colonic diverticulosis. Scatteredlucencies are noted within both kianna, some of which may correspond to theknown lytic lesions in the right ilium. Atherosclerotic calcificationsare noted. No destructive osseous lesion is seen in either femur. Atheroscleroticcalcifications are noted in both sides. No destructive osseous lesion is seen in either tibia or fibula. There is an approximately 4 cm lucency within the medial aspect of theproximal right humeral diaphysis without overlying cortical thinning. Anadditional approximately 9 mm lucency is noted in the distal right humeraldiaphysis. Suture anchors are noted in the left humeral head reflectingprior rotator cuff repair. There is a questionable approximately 7 mmlucency in the mid left humeral diaphysis as well as a questionable 12 mmlucency in the proximal left humeral diaphysis. No destructive osseous lesion is seen in either forearm. Orthopedichardware affixes presumed healed right radial and ulnar diaphysealfractures. IMPRESSION: 1. Scattered lucencies seen in the kianna, some of which may correspond tothe known lytic lesions in the right ilium. 2. Approximately 4 cm lucency in the right proximal humeral diaphysiswith additional approximately 9 mm lucency in the distal right humeraldiaphysis and questionable ill-defined lucencies in the left humeraldiaphysis as above. 3. Further evaluation with multiple myeloma workup, CT chest, abdomen,pelvis to evaluate for primary neoplasm, or whole body bone scan isrecommended. If further evaluation of any of these lesions is clinicallywarranted, dedicated MRI with and without intravenous contrast could beobtained. Referred By: MINA YOU Interpreted By: Zeke Calzada DO, 12/11/2024 10:24 PM us Donn Hoffman MD GENERAL IMAGING Final Result * (ABNORMAL) KAPPA LAMBDA FREE RATIO (QST) (12/11/2024 8:44 AM TUBE CUTTER) KAPPA FREE LIGHT CHAIN 83.0(H) 3.3 - 19.4 mg/L 12/13/2024 11:02 AM TUBE CUTTER [employer] [facility] [employer] LLY LAMBDA FREE LIGHT CHAIN 47.9(H) 5.7 - 26.3 mg/L 12/13/2024 11:02 AM TUBE CUTTER [employer] [facility] [employer] LLY KAPPA/LAMBDA FREE 1.73(H) 0.26 - 1.65 12/13/2024 11:02 AM TUBE CUTTER [employer] [facility] FU-CHANTI LLY Comment: Free kappa/lambda ratio in serum of normal individuals is 0.26-1.65. Excess production of free kappa or lambda chains can alter the ratio. Monoclonal free light chains are found in the serum of patients with multiple myeloma, Waldenstrom's macroglobulinemia, mu-heavy chain disease, primary amyloidosis, light chain deposition disease, monoclonal gammopathy of undetermined significance, and lymphoproliferative disorders. Measurement of free light chain concen- tration in serum is useful for diagnosis, prognosis, monitoring disease activity and following response to therapy of these disorders. Test Performed by [employer] [employer] [facility], [address] [place] [address] Melo Huertas M.D., Ph.D., Director of Laboratories , [place] [id number] 12/11/2024 8:44 AM TUBE CUTTER us Donn Hoffman MD LABORATORY Final Result [place] [place] [id number] [place], [place] , * IMMUNOFIXATION (12/11/2024 8:44 AM TUBE CUTTER) Pathologist [facility] IMMUNOFIXATION SERUM SEE PATHOLOGIST'S INTERPRETATION 12/12/2024 11:59 AM TUBE CUTTER [facility] IMMUNOFIX (SERUM) INTERPRETATION THIS SERUM IMMUNOTYPING WAS INTERPRETED BY 12/13/2024 9:32 AM TUBE CUTTER [facility] Comment: DR GABI PINA MD MONOCLONAL PROTEIN NOT IDENTIFIED 12/11/2024 8:44 AM TUBE CUTTER Donn Hoffman MD LABORATORY Final Result [facility] [address] [place] [address], [id number] * (ABNORMAL) PROTEIN, ELECTROPHORESIS (12/11/2024 8:44 AM TUBE CUTTER) Pathologist [facility] TOTAL PROTEIN (ELECTROPHORESIS SERUM) 6.5 6.0 - 8.3 G/DL 12/12/2024 11:58 AM TUBE CUTTER [facility] ALBUMIN ELECTROPHORESIS S/P/B 3.0(L) 3.4 - 4.9 G/DL 12/12/2024 11:57 AM TUBE CUTTER [facility] [id number] S/P/B 0.3 0.2 - 0.4 G/DL 12/12/2024 11:57 AM TUBE CUTTER [facility] [id number] S/P/B 0.9 0.4 - 1.0 G/DL 12/12/2024 11:57 AM TUBE CUTTER [facility] BETA GLOBULIN S/P/B 1.1 0.5 - 1.2 G/DL 12/12/2024 11:57 AM TUBE CUTTER [facility] GAMMA GLOBULIN S/P/B 1.2 0.6 - 1.6 G/DL 12/12/2024 11:57 AM TUBE CUTTER [facility] ELECTROPHORESIS INTERPRETATION THIS SERUM PEP WAS INTERPRETED BY 12/13/2024 9:32 AM TUBE CUTTER [facility] Comment: DR GABI PINA MD THE TOTAL SERUM PROTEIN IS NORMAL. ??ELECTROPHORESIS IDENTIFIES DECREASED ALBUMIN WITH NO ADDITIONAL QUANTITATIVE ABNORMALITIES. ??MONOCLONAL PROTEINS ARE NOT DETECTED. 12/11/2024 8:44 AM TUBE CUTTER Donn Hoffman MD LABORATORY Final Result Performing Organization Address [facility] Co de Phone Number [facility] [address] [place] [address], [phone] * Vancomycin Random Level (12/10/2024 10:03 AM TUBE CUTTER) Only the most recent of4 resultswithin the time period is included. VANCOMYCIN RANDOM 17.3 MCG/ML 12/10/2024 10:47 AM TUBE CUTTER [facility] Comment:REFERENCE RANGE NOT ESTABLISHED 12/10/2024 10:0 3 AM TUBE CUTTER Jesu Duval MD LABORATORY Final Result Performing Organization Address [facility] de Phone Number [facility] [address] [place] [address], [id number] * CT HIP RT WO CON (12/09/2024 12:15 PM TUBE CUTTER) Anatomical Region Laterality Modality Hip Computed Tomogra phy 12/09/2024 2:13 PM TUBE CUTTER Impressions 12/09/2024 2:20 PM TUBE CUTTER IMPRESSION: 1. ??No CT evidence of a right hip joint effusion. 2. ??Bone scan follow-up recommended for subtle, multifocal bone lucencies. Referred By: MINA YOU Interpreted By: Bryan Vences MD, 12/09/2024 2:13 PM Narrative 12/09/2024 2:20 PM TUBE CUTTER [facility] [address] [place], [place] [address] EXAM: CT HIP RT WO CON DATE: 12/09/2024 COMPARISON: None. ??No correlating x-ray. INDICATION: Right hip pain TECHNIQUE: Noncontrast imaging A dose lowering technique was used for this procedure, which may include, but is not limited to, dose reduction technique, automated exposure control, iterative reconstruction, ALARA (As Low As Reasonably Achievable), or Image Gently techniques. FINDINGS: No right hip joint effusion demonstrated with CT. ??Ultrasound would be required to identify any potential fluid large enough for aspiration. Normal alignment of the right hip. ??Mild diffuse joint space reduction consistent with osteoarthritis. There is a focal lucency in the anterior right ilium. ??This measures about 1.6 cm. ??Partial destruction of the medial cortex. ??Additionally, there are subtle foci of decreased density in other bones. ??Recommend bone scan correlation. Procedure Note Bryan Vences MD - 12/09/[address] [address] EXAM: CT HIP RT WO CON DATE: 12/09/2024 COMPARISON: None. No correlating x-ray. INDICATION: Right hip pain TECHNIQUE: Noncontrast imaging A dose lowering technique was used for this procedure, which may include,but is not limited to, dose reduction technique, automated exposurecontrol, iterative reconstruction, ALARA (As Low As ReasonablyAchievable), or Image Gently techniques. FINDINGS: No right hip joint effusion demonstrated with CT. Ultrasoundwould be required to identify any potential fluid large enough foraspiration. Normal alignment of the right hip. Mild diffuse joint space reductionconsistent with osteoarthritis. There is a focal lucency in the anterior right ilium. This measures about1.6 cm. Partial destruction of the medial cortex. Additionally, thereare subtle foci of decreased density in other bones. Recommend bone scancorrelation. IMPRESSION: 1. No CT evidence of a right hip joint effusion. 2. Bone scan follow-up recommended for subtle, multifocal bonelucencies. Referred By: MINA YOU Interpreted By: Bryan Vences MD, 12/09/2024 2:13 PM us Jesu Duval MD CT Final Result * (ABNORMAL) PRO-BRAIN NATRIURETIC PEPTIDE (12/07/2024 6:21 AM TUBE CUTTER) Only the most recent of3 resultswithin the time period is included. PRO-B TYPE NATRIURETIC PEPTIDE 16,835(H) <125 PG/ML 12/07/2024 7:02 AM TUBE CUTTER [facility] Comment: AGE INDEPENDENT: <300 PG/ML HAS A 99% NEGATIVE PREDICTIVE VALUE FOR EXCLUDING ACUTE CHF <50 YEARS: >450 PG/ML IS CONSISTENT WITH ACUTE CHF 50-75 YEARS: >900 PG/ML IS CONSISTENT WITH ACUTE CHF >75 YEARS: >1800 PG/ML IS CONSISTENT WITH ACUTE CHF IN PATIENTS WITH RENAL INSUFFICIENCY (GFR <60), >1200 PG/ML YIELDS A DIAGNOSTIC SENSITIVITY AND SPECIFICITY OF 89% AND 72% FOR ACUTE CHF. 12/07/2024 6:21 AM TUBE CUTTER us Jesu Duval MD LABORATORY Final Result [facility] [address] [place] [address], [id number] * ARTERIAL BLOOD GAS (12/07/2024 6:21 AM TUBE CUTTER) Only the most recent of3 resultswithin the time period is included. PH ARTERIAL 7.44 7.35 - 7.45 12/07/2024 6:32 AM TUBE CUTTER [facility] PCO2 36.5 35.0 - 45.0 MMHG 12/07/2024 6:32 AM TUBE CUTTER [facility] PO2 84.4 83.0 - 108.0 MMHG 12/07/2024 6:32 AM TUBE CUTTER [facility] BICARB ARTERIAL 24.1 22 - 26 MMOL/L 12/07/2024 6:32 AM TUBE CUTTER [facility] TOTAL CO2 CAPILLARY 25.3 23 - 27 MMOL/L 12/07/2024 6:32 AM TUBE CUTTER [facility] BE/BASE EXCESS 0.7 0 - 2 MMOL/L 12/07/2024 6:32 AM TUBE CUTTER [facility] O2 Saturation 96 95 - 98 % 12/07/2024 6:32 AM TUBE CUTTER [facility] SERGO TEST N/A 12/07/2024 6:21 AM TUBE CUTTER [facility] OXYGEN STATUS 2 lt 12/07/2024 6:21 AM TUBE CUTTER [facility] DRAW SITE ARTERIAL LT RADIAL 12/07/2024 6:21 AM TUBE CUTTER [facility] 12/07/2024 6:21 AM TUBE CUTTER Jesu Duval MD LABORATORY Final Result Performing Organization Address [facility]/State/[facility] Co de Phone Number [facility] [address] [place] [address], [id number] * USE ECHOCARDIOGRAM W CON (12/06/2024 11:32 AM TUBE CUTTER) Anatomical Region Laterality Modality NA Echocardiogram 12/06/2024 9:40 AM TUBE CUTTER Narrative 12/06/2024 10:36 PM TUBE CUTTER ?Echocardiography Report Pat.Name: ??TERRI DEVRIES ? Pat.ID: ?[id number] ? St.Date: ?? 12/06/2024 ? Refer.MD: ??[id number] KENYATTA ENRIQUEZ ?EWDPROV ?EWDPROV Exam Time: 9:40:00 AM ? Study Type:ECHO WITH CARDIAC DOPPLER COMP Height: ?70 in ? Weight: ?172 lb ? BSA: ? 1.96 m2 ?Age: ??1955,69Y ? Sex: ? M ? BP: ?143/94 ? HR: ?96 bpm ?Sonogrphr: Na Jackson RCS ? Pat. Stat.:Inpatient ? Room: ?728 ? CPT - 4: ?C8929 ? Reason for Study:Bacteremia, CHF ?? Procedures: 2D, Doppler, Color Flow, Definity was used to enhance endocardial definition. Race: ?W ? ++++++++++++++++++++++++++++++++++++ SUMMARY: ++++++++++++++++++++++++++++++++++++ The left ventricular size is normal. Estimated left ventricular ejection fraction is 35-40%. ? ? ?Moderate global hypokinesis is noted. The right ventricular size is moderately enlarged. Right ventricular systolic function is mild-moderately depressed. Inferior vena cava shows <50% collapse with respiration consistent with elevated right atrial pressure. Mild aortic regurgitation. Moderate calcification of the non-coronary cusp with restrictive movement. Moderate mitral regurgitation. Calcified anterior and posterior mitral annulus. Mild calcification of mitral valve leaflets. Moderate tricuspid regurgitation. Right ventricular systolic pressure is 71 mmHg. ++++++++++++++++++++++++++++++++++++ FINDINGS: ++++++++++++++++++++++++++++++++++++ LV: ? The left ventricular size is normal. The calculated ejection ?fraction is 39%. Estimated left ventricular ejection ?fraction is 35-40%. Left ventricular diastolic function is ?abnormal. WM: ? Moderate global hypokinesis is noted. LVOT: ? The left ventricular outflow tract size is normal. RV: ? The right ventricular size is moderately enlarged. Right ?ventricular systolic function is mild-moderately depressed. IVS: ?Intraventricular septum is normal. LA: ? The left atrial volume is severely increased (>48 ml/M2). RA: ? Right atrial size is moderately to severely enlarged. IAS: ?Atrial septum is normal. CHRISTO: ? No evidence of pericardial effusion. AO: ? Normal aortic root. SVn: ?Inferior vena cava is mild to moderately enlarged. Inferior ?vena cava shows <50% collapse with respiration consistent ?with elevated right atrial pressure. AV: ? No evidence of aortic valve stenosis. Mild aortic ?regurgitation. Moderate calcification of the Non-coronary ?cusp with restrictive movement. MV: ? Moderate mitral regurgitation. No evidence of mitral ?stenosis. Calcified anterior and posterior mitral annulus. ?Mild calcification of mitral valve leaflets. PV: ? Pulmonic valve not well visualized. TV: ? Structurally normal tricuspid valve. Moderate tricuspid ?regurgitation. Right ventricular systolic pressure is 71 ?mmHg. ++++++++++++++++++++++++++++++++++++ MEASUREMENTS: ++++++++++++++++++++++++++++++++++++ ?DOPPLER LVOT ?? LVOTpkPG ? 3 mmHg ?LVOTmnPG ? 1 mmHg LVOTpkVel ? 86.8 cm/s (70-110) LVOT SV ? 51 ml ?? LVOT TVI ?14 cm ? AV Forward Flow AV TVI ?23.7 cm ?AV pkPG ?9 mmHg AV pkVel ? 146 cm/s (100-170) Area (TVI) ?2.16 cm2 ??(3-5)* AV mnVel ?89.8 cm/s ?Area (Tay) ?2.18 cm2 ??(3-5)* AV mnPG ?4 mmHg ? AV Regurg Flow AV pkVel ? 299 cm/s ?AV P1/2t ? 396 msec AV pkPG ? 36 mmHg ? MV Forward Flow MV DeTm ?147 msec ?MV mnPG ?1 mmHg MVA P1/2t ? 5.12 cm2 ??(4-6) ?MV pkPG ?4 mmHg MV P1/2t ?43 msec (30-60)+ MV pkE ?77.6 cm/s (60-130) MV Regurg Flow MV pkPG ?124 mmHg ? MV pkVel ? 556 cm/s (60-130)* PV Forward Flow PV pkVel ?49.6 cm/s (60-90)* PV pkPG ?1 mmHg TV Regurg Flow TV pkPG ? 56 mmHg ?TV pkVel ? 375 cm/s (30- 70)* Lat E' ?? Lat e ? 8.19 cm/s ? Lat E/E' ?? Lat E/e ?9.5 ? Med E' ?? Med e ? 4.95 cm/s ? Med E/E' ?? Med E/e ? 15.7 ? Aortic Valve ?? Aortic Valve Ar ?? 1.1 ?Aortic Valve Ve ??0.59 ? AV DI ?? Value ?0.6 ? OTILIO (VTI) Index ?? Value ?1.1 ? LV Mass 2D ?? Value ?197 g ? LV Mass Gsici0V ?? Value ?101 g/m2 ? RA Volume ?? Atrial Flores ?? 7.25 cm ? Atrial Flores ?? 36.6 cm2 Atrial Flores ?152 ml ? Right Ventricle ?? Right Ventricle ??8.21 cm/s ? SV (LVOT) Index ?? Value ? 26 ml ?2D Left Ventricle ?? LVIDd ? 4.93 cm ?? (3.6-5.2) LV EF(Bi-Plane) ??39.5 % ?(63-77)* LVIDs ? 3.97 cm ?? (2.3-3.9)* LVPW ?? LVPWd ? 1.09 cm ? Ventricular Septum ?? IVSd ?1.07 cm ? Aorta ?? Ao Sin ?3.93 cm ?? (2.5-3.3)* LVOT ?? LVOT ?2.16 cm ? Ratios ?? IVS Inferior vena cava ?? IVC Diam ?2.76 cm ? LA Biplane LAVol I BP ?60.2 ml/m2 ? Right Ventricle ?? Right Ventricle ??4.95 cm ?MMODE TA ?? Tricuspid Annul ??1.41 cm ? <Electronic Signature> 12/06/2024 10:36 PM Viv Seo M.D. Procedure Note Viv Seo MD - 12/06/2024 Echocardiography Report Pat.Name: TERRI DEVRIES Pat.ID: [id number] .Date: 12/06/2024 Refer.MD: [id number] KENYATTA ENRIQUEZ EWDPROV EWDPROV Exam Time: 9:40:00 AM Study Type:ECHO WITH CARDIAC DOPPLER COMP Height: 70 in Weight: 172 lb BSA: 1.96 m2 Age: 6 1955,69Y Sex: M BP: 143/94 HR: 96 bpm Sonogrphr: Na Jackson Pat. Stat.:Inpatient Room: 728 CPT - 4: C8929 Reason for Study:Bacteremia, CHF Procedures: 2D, Doppler, Color Flow, Definity was used to enhance endocardial definition. Race: W ++++++++++++++++++++++++++++++++++++ SUMMARY: ++++++++++++++++++++++++++++++++++++ The left ventricular size is normal. Estimated left ventricular ejection fraction is 35-40%. ? ? ?Moderate global hypokinesis is noted. The right ventricular size is moderately enlarged. Right ventricular systolic function is mild-moderately depressed. Inferior vena cava shows <50% collapse with respiration consistent with elevated right atrial pressure. Mild aortic regurgitation. Moderate calcification of the non-coronary cusp with restrictive movement. Moderate mitral regurgitation. Calcified anterior and posterior mitral annulus. Mild calcification of mitral valve leaflets. Moderate tricuspid regurgitation. Right ventricular systolic pressure is 71 mmHg. ++++++++++++++++++++++++++++++++++++ FINDINGS: ++++++++++++++++++++++++++++++++++++ LV: The left ventricular size is normal. The calculated ejection fraction is 39%. Estimated left ventricular ejection fraction is 35-40%. Left ventricular diastolic function is abnormal. WM: Moderate global hypokinesis is noted. LVOT: The left ventricular outflow tract size is normal. RV: The right ventricular size is moderately enlarged. Right ventricular systolic function is mild-moderately depressed. IVS: Intraventricular septum is normal. LA: The left atrial volume is severely increased (>48 ml/M2). RA: Right atrial size is moderately to severely enlarged. IAS: Atrial septum is normal. CHRISTO: No evidence of pericardial effusion. AO: Normal aortic root. SVn: Inferior vena cava is mild to moderately enlarged. Inferior vena cava shows <50% collapse with respiration consistent with elevated right atrial pressure. AV: No evidence of aortic valve stenosis. Mild aortic regurgitation. Moderate calcification of the Non-coronary cusp with restrictive movement. MV: Moderate mitral regurgitation. No evidence of mitral stenosis. Calcified anterior and posterior mitral annulus. Mild calcification of mitral valve leaflets. PV: Pulmonic valve not well visualized. TV: Structurally normal tricuspid valve. Moderate tricuspid regurgitation. Right ventricular systolic pressure is 71 mmHg. ++++++++++++++++++++++++++++++++++++ MEASUREMENTS: ++++++++++++++++++++++++++++++++++++ DOPPLER LVOT LVOTpkPG 3 mmHg LVOTmnPG 1 mmHg LVOTpkVel 86.8 cm/s (70-110) LVOT SV 51 ml LVOT TVI 14 cm AV Forward Flow AV TVI 23.7 cm AV pkPG 9 mmHg AV pkVel 146 cm/s (100-170) Area (TVI) 2.16 cm2 (3-5)* AV mnVel 89.8 cm/s Area (Tay) 2.18 cm2 (3-5)* AV mnPG 4 mmHg AV Regurg Flow AV pkVel 299 cm/s AV P1/2t 396 msec AV pkPG 36 mmHg MV Forward Flow MV DeTm 147 msec MV mnPG 1 mmHg MVA P1/2t 5.12 cm2 (4-6) MV pkPG 4 mmHg MV P1/2t 43 msec (30-60)+ MV pkE 77.6 cm/s (60-130) MV Regurg Flow MV pkPG 124 mmHg MV pkVel 556 cm/s (60-130)* PV Forward Flow PV pkVel 49.6 cm/s (60-90)* PV pkPG 1 mmHg TV Regurg Flow TV pkPG 56 mmHg TV pkVel 375 cm/s (30-70)* Lat E' Lat e 8.19 cm/s Lat E/E' Lat E/e 9.5 Med E' Med e 4.95 cm/s Med E/E' Med E/e 15.7 Aortic Valve Aortic Valve Ar 1.1 Aortic Valve Ve 0.59 AV DI Value 0.6 OTILIO (VTI) Index Value 1.1 LV Mass 2D Value 197 g LV Mass Albxs5N Value 101 g/m2 RA Volume Atrial Flores 7.25 cm Atrial Flores 36.6 cm2 Atrial Flores 152 ml Right Ventricle Right Ventricle 8.21 cm/s SV (LVOT) Index Value 26 ml 2D Left Ventricle LVIDd 4.93 cm (3.6-5.2) LV EF(Bi-Plane) 39.5 % (63-77)* LVIDs 3.97 cm (2.3-3.9)* LVPW LVPWd 1.09 cm Ventricular Septum IVSd 1.07 cm Aorta Ao Sin 3.93 cm (2.5-3.3)* LVOT LVOT 2.16 cm Ratios IVS Inferior vena cava IVC Diam 2.76 cm LA Biplane LAVol I BP 60.2 ml/m2 Right Ventricle Right Ventricle 4.95 cm MMODE TA Tricuspid Annul 1.41 cm <Electronic Signature> 12/06/2024 10:36 PM Viv Seo M.D. Jesu Duval MD ECHO Final Result * (ABNORMAL) COMPREHENSIVE METABOLIC PANEL (12/06/2024 1:39 AM TUBE CUTTER) Only the most recent of3 resultswithin the time period is included. SODIUM S/P/B 146(H) 136 - 145 MMOL/L 12/06/2024 2:50 AM [facility] POTASSIUM S/P/B 3.5 3.5 - 5.1 MMOL/L 12/06/2024 2:50 AM [facility] CHLORIDE S/P/B 116(H) 97 - 115 MMOL/L 12/06/2024 2:50 AM [facility] CO2 26.2 21.0 - 32.0 MMOL/L 12/06/2024 2:50 AM [facility] GLUCOSE 90 74 - 106 MG/DL 12/06/2024 2:50 AM [facility] BUN 31(H) 7 - 18 MG/DL 12/06/2024 2:50 AM [facility] CREATININE S/P/B 2.15(H) 0.70 - 1.30 MG/DL 12/06/2024 2:50 AM [facility] CALCIUM S/P/B 8.9 8.5 - 10.1 MG/DL 12/06/2024 2:50 AM [facility] BILIRUBIN TOTAL S/P/B 0.7 0.2 - 1.0 MG/DL 12/06/2024 2:50 AM [facility] ALKALINE PHOSPHATASE S/P/B 45 45 - 115 U/L 12/06/2024 2:50 AM [facility] AST 61(H) 15 - 37 U/L 12/06/2024 2:50 AM [facility] ALT 62(H) 16 - 61 U/L 12/06/2024 2:50 AM TUBE CUTTER [facility] TOTAL PROTEIN S/P/B 6.4 6.4 - 8.2 G/DL 12/06/2024 2:50 AM TUBE CUTTER [facility] ALBUMIN S/P/B 2.3(L) 3.4 - 5.0 G/DL 12/06/2024 2:50 AM TUBE CUTTER [facility] ANION GAP 3.8 2.0 - 10.0 MMOL/L 12/06/2024 2:50 AM [facility] OSMOLALITY (CALC) 308 MOSM/KG 025 2:50 AM [facility] Comment:REFERENCE RANGE NOT ESTABLISHED GFR ESTIMATE 33(L) >90 ML/MIN/1. 73 M2 12/06/2024 2:50 AM [facility] GFR NOTES GFR REFERENCE S: 12/06/2024 2:50 AM [facility] Comment: THE ESTIMATED GFR IS CALCULATED USING THE 2020 CKD-EPI EQUATION. THE FOLLOWING CATEGORIES FOR GRADING RENAL FUNCTION ARE RECOMMENDED BY THE INTERNATIONAL SOCIETY OF NEPHROLOGY (KDIGO 2012 CLINICAL PRACTICE GUIDELINE). G1,NORMAL OR HIGH: >89 ml/min/1.73 m2 G2,MILDLY DECREASED: 60-89 ml/min/1.73 m2 G3A,MILDLY TO MODERATELY DECREASED: 45-59 ml/min/1.73 m2 G3B,MODERATELY TO SEVERELY DECREASED: 30-44 ml/min/1.73 m2 G4,SEVERELY DECREASED: 15-29 ml/min/1.73 m2 G5,KIDNEY FAILURE: <15 ml/min/1.73 m2 12/06/2024 1:39 AM TUBE CUTTER Jesu Duval MD LABORATORY Final Result [facility] [address] [place] [address], [phone] * XR SPEECH SWALLOW SJS ONLY (12/05/2024 9:43 AM TUBE CUTTER) Anatomical Region Laterality Modality NA Fluoroscopy 12/05/2024 9:55 AM TUBE CUTTER Impressions 12/05/2024 9:58 AM TUBE CUTTER IMPRESSION: 1. Impending aspiration thin liquid barium. 2. Minimal laryngeal penetration nectar barium consistency. Ordered By: JSEU DUVAL Interpreted By: Juan Alberto Berg MD, 12/05/2024 9:55 AM Narrative 12/05/2024 9:58 AM TUBE CUTTER [address] [address] Examination: XR SPEECH SWALLOW SJS ONLY Exam time: 12/05/2024 9:41 AM Clinical history: Dysphagia Comparison: No prior exam Technique: Exam was performed in conjunction with speech pathology. Patient was placed in upright lateral position. Pulse fluoroscopy was utilized. 2.1 minutes fluoroscopy time. 24.6 mGy reference air kerma radiation dose. Findings: With honey barium consistency from a spoon, there is early spillage to the vallecula with mild to moderate residual following the swallow. No evidence of laryngeal penetration or aspiration. With mildly thickened barium consistency from a spoon, early spillage to the piriform sinus. No evidence of penetration or aspiration. [place] barium consistency from a cup with a straw demonstrated no evidence of laryngeal penetration or aspiration. With pudding barium consistency from a spoon, there was spillage to the piriform sinus with no evidence of penetration or aspiration. Mild residual within the vallecula. [place] barium consistency from a cup with a straw demonstrated no evidence of penetration or aspiration. [place] barium consistency from an open cup demonstrated larger bolus size with minimal laryngeal penetration which mostly ejected. No evidence of significant stasis. Solid cracker barium consistency appeared unremarkable. [place] barium consistency wash from a cup with a straw demonstrated no evidence of penetration or aspiration. Thin liquid barium from a cup with a straw demonstrated minimal laryngeal penetration without complete ejection consistent with impending aspiration. Thin liquid barium from an open cup demonstrated deep laryngeal penetration without ejection consistent with impending aspiration. Procedure Note Juan Alberto Berg MD - 12/05/2024 [facility] [address] [place], [place] [address] Examination: XR SPEECH SWALLOW SJS ONLY Exam time: 12/05/2024 9:41 AM Clinical history: Dysphagia Comparison: No prior exam Technique: Exam was performed in conjunction with speech pathology.Patient was placed in upright lateral position. Pulse fluoroscopy wasutilized. 2.1 minutes fluoroscopy time. 24.6 mGy reference air kermaradiation dose. Findings: With honey barium consistency from a spoon, there is earlyspillage to the vallecula with mild to moderate residual following theswallow. No evidence of laryngeal penetration or aspiration. With mildly thickened barium consistency from a spoon, early spillage tothe piriform sinus. No evidence of penetration or aspiration. [place] barium consistency from a cup with a straw demonstrated no evidenceof laryngeal penetration or aspiration. With pudding barium consistency from a spoon, there was spillage to thepiriform sinus with no evidence of penetration or aspiration. Mildresidual within the vallecula. [place] barium consistency from a cup with a straw demonstrated no evidenceof penetration or aspiration. [place] barium consistency from an open cupdemonstrated larger bolus size with minimal laryngeal penetration whichmostly ejected. No evidence of significant stasis. Solid cracker barium consistency appeared unremarkable. [place] barium consistency wash from a cup with a straw demonstrated noevidence of penetration or aspiration. Thin liquid barium from a cup with a straw demonstrated minimal laryngealpenetration without complete ejection consistent with impendingaspiration. Thin liquid barium from an open cup demonstrated deeplaryngeal penetration without ejection consistent with impendingaspiration. IMPRESSION: 1. Impending aspiration thin liquid barium. 2. Minimal laryngeal penetration nectar barium consistency. Ordered By: JESU DUVAL Interpreted By: Juan Alberto Berg MD, 12/05/2024 9:55 AM us Jesu Duval MD FLUOROSCOPY Final Result * MAGNESIUM (12/05/2024 1:51 AM TUBE CUTTER) Only the most recent of4 resultswithin the time period is included. MAGNESIUM 1.7 1.6 - 2.6 MG/DL 12/05/2024 2:13 AM TUBE CUTTER [facility] 12/05/2024 1:51 AM TUBE CUTTER us Mecca John MD LABORATORY Final Result Performing Organization Address City/[facility]/ZIP Co de Phone Number [facility] [address] [place] [address], [place] [phone] * (ABNORMAL) HEPARIN, ANTI XA, UFH (12/04/2024 5:45 AM TUBE CUTTER) Only the most recent of2 resultswithin the time period is included. HEPARIN ANTI XA UFH 0.91(H) 0.30 - 0.70 IU/ML 12/04/2024 6:08 AM TUBE CUTTER [facility] Comment: UFH Therapeutic Anti Xa Ranges: Medical Therapeutic Range: 0.30 - 0.70 IU/mL Cardiac Therapeutic Range: 0.30 - 0.50 IU/mL Neuro Therapeutic Range: 0.20 - 0.40 IU/mL 12/04/2024 5:45 AM TUBE CUTTER us Mecca John MD LABORATORY Final Result Performing Organization Address [facility] Co de Phone Number [facility] [address] [place] [address], [phone] * (ABNORMAL) PARTIAL THROMBOPLASTIN TIME,PTT (12/04/2024 5:45 AM TUBE CUTTER) Only the most recent of9 resultswithin the time period is included. PTT 71.4(H) 25.1 - 36.5 SEC 12/04/2024 6:16 AM TUBE CUTTER [facility] 12/04/2024 5:45 AM TUBE CUTTER us Mecca John MD LABORATORY Final Result Performing Organization Address City/[facility] Co de Phone Number [facility] [address] [place] [address], [phone] * PROCALCITONIN (PCT) (12/02/2024 11:33 PM TUBE CUTTER) Pathologist [facility] Procalcitonin 0.06 0.00 - 0.49 NG/ML 12/03/2024 10:23 AM TUBE CUTTER [facility] 12/02/2024 11:3 3 PM TUBE CUTTER Carlee Martin MD LABORATORY Final Result Performing Organization Address City/[facility]/ZIP Co de Phone Number [facility] [address] [place] [address], [id number] * LACTIC ACID (12/02/2024 11:33 PM TUBE CUTTER) Only the most recent of4 resultswithin the time period is included. [facility] LACTIC ACID VENOUS 1.8 0.4 - 2.0 MMOL/L 12/03/2024 12:01 AM TUBE CUTTER [facility] 12/02/2024 11:3 3 PM TUBE CUTTER Carlee Martin MD LABORATORY Final Result Performing Organization Address [facility] Co de Phone Number [facility] [address] [place] [address], [id number] * CULTURE, BACTERIA BLOOD X2 (12/02/2024 6:57 PM TUBE CUTTER) Pathologist [facility] SPEC DESCRIPTION BLOOD 12/02/19 7:02 PM TUBE CUTTER [facility] SPECIAL REQUESTS BLOOD-AERO BIC BOTTLE ONLY 12/02/2024 7:02 PM TUBE CUTTER [facility] CULTURE RESULT NO GROWTH 5 DAYS 12/07/2024 9:25 PM TUBE CUTTER [facility] BLOOD SPECIMEN OBTAINED FOR BLOOD CULTURE / Unknown 12/02/2024 6:57 PM TUBE CUTTER 12/02/2024 7:02 PM TUBE CUTTER Marc Paz MD MICROBIOLOGY - GENE RAL ORDERABLES Final Result Performing Organization Address City/[facility] Co de Phone Number [facility] [address] [place] [address], [phone] * (ABNORMAL) C-REACTIVE PROTEIN (12/02/2024 1:17 AM TUBE CUTTER) Only the most recent of3 resultswithin the time period is included. C-REACTIVE PROTEIN 9.81(H) <0.80 mg/dL 12/02/2024 2:38 AM TUBE CUTTER [facility] 12/02/2024 1:17 AM TUBE CUTTER Gail Savage MD LABORATORY Final Resul t Performing Organization Address [facility] de Phone Number [facility] [address] [place] [address], [phone] * (ABNORMAL) Blood gas, venous (12/01/2024 4:58 AM TUBE CUTTER) PH VENOUS 7.32 7.32 - 7.42 12/01/2024 5:06 AM TUBE CUTTER [facility] PCO2 VENOUS 46.9 41.0 - 51.0 MMHG 12/01/2024 5:06 AM [facility] PO2 VENOUS 36.2 25.0 - 40.0 MM HG 12/01/2024 5:06 AM [facility] BICARB VENOUS 23.6(L) 24 - 28 MMOL/L 12/01/2024 5:06 AM TUBE CUTTER [facility] TOTAL CO2 VENOUS 25.1 25.0 - 29.0 MMOL/L 12/01/2024 5:06 AM [facility] BASE DEFICIT VENOUS 2.1 0.0 - 3.0 MMOL/L 12/01/2024 5:06 AM [facility] O2 SAT VENOUS 59 <75 % 12/01/2024 5:06 AM [facility] 12/01/2024 4:58 AM TUBE CUTTER us Carlee Martin MD LABORATORY Final Result [facility] [address] [place] [address], [place] [phone] * PHOSPHORUS, INORGANIC PHOSPHATE (12/01/2024 4:58 AM TUBE CUTTER) PHOSPHORUS 3.8 2.5 - 4.9 MG/DL 12/01/2024 5:38 AM TUBE CUTTER [facility] 12/01/2024 4:58 AM TUBE CUTTER us Carlee Martin MD LABORATORY Final Result Performing Organization Address [facility] Co de Phone Number [facility] [address] [place] [address], [place] [phone] * CT HEAD WO CON (11/30/2024 11:05 PM TUBE CUTTER) Anatomical Region Laterality Modality Head Computed Tomogra phy 11/30/2024 11:4 0 PM TUBE CUTTER Impressions 11/30/2024 11:45 PM TUBE CUTTER IMPRESSION: 1. Asymmetry of the partially included parotid glands with left larger than right with no discrete mass in the partially imaged parotid glands ; please correlate clinically for etiology and significance. 2. ??No acute intracranial abnormality. 3. ??Stable generalized atrophy with mild nonspecific chronic periventricular and deep cerebral white matter vascular disease in bilateral cerebral hemispheres. 4. ??Intracranial atherosclerotic vascular calcifications. 5. ??Stable partially empty sella, developmental variant, related to atrophy, or less likely intracranial hypertension. ??Please correlate clinically. This CT exam was performed using one or more of the following dose reduction techniques: ??automated exposure control, adjustment of the mA and/or kV according to patient size, and/or use of iterative reconstruction technique. Referred By: MINA YOU Interpreted By: Ana Hackett MD, 11/30/2024 11:40 PM Narrative 11/30/2024 11:45 PM TUBE CUTTER [facility] [address] [place], [place] [address] EXAMINATION: ??CT Head without Contrast, Axial Imaging with 2-D Coronal and Sagittal Reconstruction. INDICATION: Evaluate for stroke. ??Confusion. COMPARISON: CT head without contrast 07/11/2024.. FINDINGS: ??No mass, midline shift, intracranial hemorrhage, areas of acute macrovascular ischemia, or acute osseous abnormality. ??Stable generalized atrophy, somewhat prominent for patient's age. ??Stable partially empty sella. ??No extra-axial fluid collections. ??Stable generalized prominence of the ventricles and sulci related to atrophy and volume loss. ??Mild nonspecific patchy hypodensity in the periventricular and deep cerebral white matter in bilateral cerebral hemispheric cerebral edema or mass effect, likely nonspecific chronic white matter microvascular disease. ??Atherosclerotic calcifications in bilateral intracranial vertebral arteries near the skull base as well as in the distal intracranial internal carotid arteries. ??Slight pneumatization of right middle turbinate. ??Mild chronic mucosal thickening in bilateral maxillary sinuses. ??No other significant paranasal sinus or mastoid air cell disease. ??Stable postoperative changes of bilateral lens replacement surgery in the orbits. ??Incidental finding of asymmetry of the included parotid glands with left larger than right, of uncertain etiology and significance. Procedure Note Ana Hackett MD - 11/30/2024 [facility] [address] [place], [place] [address] EXAMINATION: CT Head without Contrast, Axial Imaging with 2-D Coronal andSagittal Reconstruction. INDICATION: Evaluate for stroke. Confusion. COMPARISON: CT head without contrast 07/11/2024.. FINDINGS: No mass, midline shift, intracranial hemorrhage, areas of acutemacrovascular ischemia, or acute osseous abnormality. Stable generalizedatrophy, somewhat prominent for patient's age. Stable partially emptysella. No extra- axial fluid collections. Stable generalized prominenceof the ventricles and sulci related to atrophy and volume loss. Mildnonspecific patchy hypodensity in the periventricular and deep cerebralwhite matter in bilateral cerebral hemispheric cerebral edema or masseffect, likely nonspecific chronic white matter microvascular disease.Atherosclerotic calcifications in bilateral intracranial vertebralarteries near the skull base as well as in the distal intracranialinternal carotid arteries. Slight pneumatization of right middleturbinate. Mild chronic mucosal thickening in bilateral maxillarysinuses. No other significant paranasal sinus or mastoid air celldisease. Stable postoperative changes of bilateral lens replacementsurgery in the orbits. Incidental finding of asymmetry of the includedparotid glands with left larger than right, of uncertain etiology andsignificance. IMPRESSION: 1. Asymmetry of the partially included parotid glands with left largerthan right with no discrete mass in the partially imaged parotid glands ;please correlate clinically for etiology and significance. 2. No acute intracranial abnormality. 3. Stable generalized atrophy with mild nonspecific chronicperiventricular and deep cerebral white matter vascular disease inbilateral cerebral hemispheres. 4. Intracranial atherosclerotic vascular calcifications. 5. Stable partially empty sella, developmental variant, related toatrophy, or less likely intracranial hypertension. Please correlateclinically. This CT exam was performed using one or more of the following dosereduction techniques: automated exposure control, adjustment of the mAand/or kV according to patient size, and/or use of iterativereconstruction technique. Referred By: MINA YOU Interpreted By: Ana Hackett MD, 11/30/2024 11:40 PM Savanah Davila MD CT Final Result * (ABNORMAL) VITAMIN B1 THIAMINE (PLASMA) (11/30/2024 4:39 PM TUBE CUTTER) Pathologist [facility] VITAMIN B1 S/P/B 64(H) 8 - 30 nmol/L 12/07/2024 1:43 PM TUBE CUTTER [employer] [facility] Comment: Vitamin supplementation within 24 hours prior to blood draw may affect the accuracy of the results. This test was developed and its analytical performance characteristics have been determined by [employer] [place], [place]. It has not been cleared or approved by the U.S. Food and Drug Administration. This assay has been validated pursuant to the CLIA regulations and is used for clinical purposes. Test Performed by [facility], [employer] [facility], [address] [place], [place] Melo Huertas M.D., Ph.D., Director of Laboratories , [facility] [id number] 11/30/2024 4:39 PM TUBE CUTTER Tawana Bell NP LABORATORY Final Result Performing Organization Address City/[facility] Co de Phone Number [employer] [facility] [address] [place], [place] , [place] [phone] * THYROID STIM HORMONE, TSH (11/30/2024 4:39 PM TUBE CUTTER) Pathologist [facility] TSH 3.560 0.358 - 3.740 uIU/ML 11/30/2024 5:31 PM TUBE CUTTER [facility] Comment: ASSAY PERFORMED BY CHEMILUMINESCENCE METHODOLOGY USING SIEM[employer] DIM[employer] VISTA REAGENT. PATIENT RESULTS DETERMINED BY ASSAYS USING DIFFERENT MANUFACTURERS FOR METHODS MAY NOT BE COMPARABLE. 11/30/2024 4:39 PM TUBE CUTTER Tawana Bell NP LABORATORY Final Result Performing Organization Address [facility] Co de Phone Number [facility] [address] [place] [address], [phone] from Last 3 Months Insurance MEDICARE Advance Directives Documents on File Type Date Recorded Patient Senior Actuarial Analyst Expl anation Advance Directives and Living Will 12/18/2024 2:55 PM DNR POLST 11/12/2024 * DNR (Latest Code Status on File) Date Activated Date Inactivated Comments 11/30/2024 4:16 PM 12/18/2024 2:49 PM * Full Code Date Activated Date Inactivated Comments 12/26/2023 11:11 PM 12/29/2023 1:15 PM * Full Code Date Activated Date Inactivated Comments 10/02/2023 9:58 AM 10/05/2023 3:51 PM * Full Code Date Activated Date Inactivated Comments 12/30/2022 4:13 PM 12/31/2022 7:27 PM Care Teams Anesthesiology Faculty Relationship Specialty Start Date End Date Kahlil Peres MD [address] [place] [address] PCP - General FAMILY PRACTICE 11/30/24 Emeka Garcia MD [address] [place] [id number] Consulting Physician CLINICAL CARDIAC ELECTROPHYSIOLOGY 03/30/23 Viv Seo MD [address] [place] [address] Consulting Physician CARDIOVASCULAR DISEASE 05/11/24
--- OUTSIDE RECORDS SUMMARY | 2024-12-24 14:50 | XMS_ITS | Encounter Summary ---
Author Organization [facility] Address Formerly [facility], [facility] Formerly [facility] [place] [address] [place] [address] Care Team Providers Care Glass Wool Blanket Machine Feeder Name Role Phone Emeka Garcia MD Unavailable [phone] New Referring, Provider Primary Care Provider Un available Anne Kendrick MD Primary Care Provider [phone] Viv Seo MD Unavailable Kahlil Peres MD Primary Care Provider [phone] Encounter Details Date Type Department Care Team (Latest Contact Info) Description 10/02/2023 Hospital Encounter Tyler Bennett MD [address] [place] [id number] Social History Tobacco Use Types Packs/Day Years Used Date Smoking Tobacco: Never Smokeless Tobacco: Never Alcohol Use Standard Drinks/Week Comments Yes 16.7 (1 standard drink = 0.6 oz pure alcohol) [facility] Utilities Answer Date Recorded In the past 12 months has e electric, gas, oil, or water company threatened to shut off services in your [...] place to sleep or slept in a long-term (including now)? No 12/27/2023 Housing Stability Vital Sign Answer Varinder e Recorded In the last 12 months, was t here a time when you were not able to pay the mortgage or rent on time? No 11/30/2024 In the past 12 months, how m any times have you moved where you were living? 1 11/30/2024 At any time in the past [address] [facility], were you homeless or living in a long-term (including now)? Patient unable to answer 11/30/2024 Sex and Gender Information Value Date Recorded Sex Assigned at Male 12/04/2024 9:12 AM FAGOTER Legal Sex Male 5:48 PM FAGOTER Gender Identity Not on file Sexual Orientation Not on file documented as of this encounter Functional Status * Question Answer Date of Assessment Author Status Do you have serious difficulty walking or climbing stairs? Yes 11/30/2024 6:47 PM Ella Gusman RN Act claudia * Question Answer Date of Assessment Author Status Do you have difficulty dressing or bathing? Yes 11/30/2024 6:47 PM Ella Gusman RN Active Because of a physical, mental, or emotional condition, do you have difficulty doing errands alone such as visiting a doctor's office or shopping? Yes 11/30/2024 6:47 PM Ella Gusman RN Acti ve * Are you deaf or do you have serious difficulty hearing Answer Date of Assessment Author Status No 10/02/2023 2:18 PM Raul Williamson RN Active * Are you blind or do you have serious difficulty seeing, even when wearing glasses? Answer Date of Assessment Author Status No 10/02/2023 2:18 PM Raul Williamson RN Active * Do you have serious difficulty walking or climbing stairs? Answer Date of Assessment Author Status No 10/02/2023 2:18 PM Raul Williamson RN Active * Do you have difficulty dressing or bathing? Answer Date of Assessment Author Status No 10/02/2023 2:18 PM Raul Williamson RN Active * Because of a physical, mental, or emotional condition, do you have difficulty doing errands alone such as visiting a doctor's office or shopping? Answer Date of Assessment Author Status No 10/02/2023 2:18 PM Raul Williamson RN Active documented as of this encounter Mental Status * Question Answer Entry Date Author Status Because of a physical, mental, or emotional condition, do you have serious difficulty concentrating, remembering, or making decisions? Yes 11/30/2024 6:47 PM Ella Gusman RN Active * Because of a physical, mental, or emotional condition, do you have serious difficulty concentrating, remembering, or making decisions? Answer Entry Date Author Status No 10/02/2023 2:18 PM FAGOTER Raul Adler, CINDI Active documented in this encounter Plan of Treatment Upcoming Encounters Date Type Department Care Team (Late st Contact Info) Description 03/13/2025 11:00 AM CDT Office Visit [facility] [place] [address] [facility] [facility] [address] [place] [address] Emeka Garcia MD [address] [place], [place] [address] 05/15/2025 8:30 AM CDT Appointment [facility] [place] [address] Viv Seo MD [address] [place] [address] 05/20/2025 2:45 PM CDT Office Visit [facility] [place] [address] [place] [phone] Viv Seo MD [address] [place], [place] [phone] documented as of this encounter Goals Goal Patient Goal Type Associated Problems Recent Progress Patient-Stated? Author Patient will return to prior living situation and remain independent in ADLs upon discharge from hospital Lifestyle Vicky Moreira RN documented as of this encounter Visit Diagnoses Not on filedocumented in this encounter Additional Health Concerns Infection Onset Date Last Indicated Resolved Time COVID-19 Rule Out 12/19/2023 12/19/2023 12/19/2023 6:05 AM FAGOTER COVID-19 Rule Out 12/26/2023 12/26/2023 12/26/2023 5:39 PM FAGOTER documented as of this encounter Care Teams Glass Wool Blanket Machine Feeder Relationship Specialty Start Date End Date New Referring, Provider PCP - General UNKNOWN PHYSICIAN SPECIALTY 10/02/23 10/04/23 Anne Kendrick MD [address] [place] [id number] PCP - General FAMILY PRACTICE 10/05/23 11/29/24 Kahlil Peres MD [address] [place] [address] PCP - General FAMILY PRACTICE 11/30/24 Emeka Garcia MD [address] [place] [phone] Consulting Physician CLINICAL CARDIAC ELECTROPHYSIOLOGY 03/30/23 Viv Seo MD [address] [place], [place] [phone] Consulting Physician CARDIOVASCULAR DISEASE 05/11/24 documented as of this encounter
[2024-12-24 14:54] LABS: Alanine Aminotransferase 31 U/L (16-63); Albumin Level 2.6 g/dL (3.4-5.0); Alkaline Phosphatase 81 U/L (46-116); Anion Gap 9 mmol/L (4-12); Aspartate Amino Transferase 38 U/L (15-37); Bilirubin,Total 0.4 mg/dL (0.00-1.00); Blood Urea Nitrogen 21 mg/dL (7-18); Carbon Dioxide 24 mmol/L (21-32); Chloride 102 mmol/L (98-108); Estimated Glomerular Filt Rate 39; Ferritin 222 ng/mL (26-388); Free T4 Free Thyroxine 0.61 ng/dL (0.76-1.46); Glucose 95 mg/dL (70-99); Osmolality Calculated 283 mOsm/kg (285-295); Potassium 4.5 mmol/L (3.5-5.1); Sodium 135 mmol/L (136-145); Thyroid Stimulating Hormone 16.31 uIU/mL (0.36-3.74)
== END 2024-12-24 13:53 | disposition home or self-care (01) ==
LOC: CHSLAB 13:54
PROVIDERS: PCP Family Medicine; Visit Provider Family Medicine
DX: R94.6 Abnormal results of thyroid function studies (principal); I48.91 Unspecified atrial fibrillation
CPT/HCPCS: 36415; 80053; 82728; 84439; 84443

== ENCOUNTER 2024-12-28 15:03 | Outpatient (CLI) | payer MEDICARE, SELFPAY ==
--- OUTSIDE RECORDS SUMMARY | 2024-12-28 15:09 | XMS_ITS ---
Author Organization [facility] Address [address] [facility] [address] [place], [place] [id number] Care Team Providers Care Marine Service Manager Name Role Phone ALICE FALCON Unavailable [phone] Migration, Provider Unavailable Unavailable REASON FOR VISIT EMR-Nando Encounters Encounter Location Date Provider Diagnosis Cardiology [facility] [address] [facility] [address] [place], [place] [id number] 08/06/2023 Provider Migration Plan Of Treatment No Information Progress Notes * TERRI SALDIVAR RDOB: (69 yo M)Acc No.[id number]:08/06/2023 Patient: Zach TERRI GOODEN :1955 A ge:68 Y S ex:Male Address:[address] [place], [address] Subjective: * Chief Complaints: * E MR-Nando * Medical History: * Surgical History: * Hospitalization/Major Diagno stic Procedure: * Medications: Objective: * Vitals: * Physical Examination: Assessment: Plan: * Treatment: * Procedure Codes: * * Date:
--- OUTSIDE RECORDS SUMMARY | 2024-12-28 15:09 | XMS_ITS | Patient Health Record ---
Author Organization [facility], [facility] Address [address] [facility] [address] [place], [place] [phone] Care Team Providers Care Biological Chemist Name Role Phone ALICE FALCON Unavailable [phone] Reason For Referral No Information Medications Medication SIG (Take, Route, Frequency, Duration) Notes Start Date End Date Status Eliquis 5 MG Oral 05/26/2022 Active FENOFIBRATE MICRONIZED 48 MG TABLET *Reorder from what[employer]words for eRx and Interaction Alerts* 05/26/2022 Active NIFEdipine 20 mg Oral 05/26/2022 Ac tive Torsemide 10 MG Oral 05/26/2022 Act claudia Metoprolol Tartrate 50 MG Oral 05/26/2022 Active Levothyroxine Sodium 125 MCG Oral 05/26/2022 Active Lisinopril 5 MG Oral 05/26/2022 Act claudia Atorvastatin Calcium 80 MG Oral 05/26/2022 Active Fenofibrate 48 MG Oral 05/26/2022 A ctive Allopurinol 100 MG Oral 05/26/2022 Active Problems Problem Type SNOMED Code ICD Code Onset Dates Problem Status W/U Status Risk Notes Problem Hypothyroidism (06301262) Hypothyroidism, unspecified (E03.9) 03/26/20 22 Active confirmed Problem Angina pectoris (458314913) Angina pectoris, unspecified (I20.9) 03/26/20 22 Active confirmed Problem Atherosclerotic heart disease of [place] coronary artery without angina pectoris (864977224990586) Atherosclerotic heart disease of [place] coronary artery without angina pectoris (I25.10) 05/26/20 22 Active confirmed Problem Chronic atrial fibrillation (553377004) Chronic atrial fibrillation (I48.2) 07/03/20 19 Active confirmed Problem Peripheral vascular disease (161884932) Peripheral vascular disease, unspecified (I73.9) 05/26/20 22 Active confirmed Problem Dyspnea (080912836) Dyspnea, unspecified (R06.00) 03/26/20 22 Active confirmed Problem Tremor (41086836) Tremor, unspecified (R25.1) 01/17/20 20 Active confirmed Problem Long-term current use of drug therapy (543013859) Other long term care social worker (current) drug therapy (Z79.899) 03/26/20 22 Active confirmed Problem Mixed hyperlipidemia (210390517) Mixed hyperlipidemia (E78.2) 05/26/20 22 Active confirmed Problem Essential hypertension (08066536) Essential (primary) hypertension (I10) 06/09/20 23 Active confirmed Problem Mitral valve disorder (67810617) Nonrheumatic mitral (valve) insufficiency (I34.0) 03/26/20 22 Active confirmed Problem Atrial fibrillation (58437108) Unspecified atrial fibrillation (I48.91) 05/26/20 22 Active confirmed Plan Of Treatment No Information Insurance Providers Payer Name Payer Address Payer Phone Subscriber Number Group Number Insured Name Patient Relationship to Insured Coverage Start Date Coverage End Date Medicare Part B [address] [place] [phone] [id number] TERRI SALDIVAR Self - patient is the insured Medical (General) History Surgical History Surgery Date(Month/Year) Biopsy of lung (66766483) RIGHT Procedure on shoulder (52979 3003) HIGH SCHOOL LEFT SHOULDER SEPARATION Colonoscopy 03/25/2013 Percutaneous transluminal co ronary angioplasty (21574502) STENT TO LAD -CARDIAC CATH 2 STENTS 08/21/2012
--- OUTSIDE RECORDS SUMMARY | 2024-12-28 15:09 | XMS_ITS | Encounter Summary ---
Author Organization [facility] Address [facility] [place] [address] Care Team Providers Care Cell Assembly Pinner Name Role Phone Emeka Garcia MD Unavailable [phone] New Referring, Provider Primary Care Provider Un available Anne Kendrick MD Primary Care Provider [phone] Viv Seo MD Unavailable Kahlil Peres MD Primary Care Provider [phone] Encounter Details Date Type Department Care Team (Latest Contact Info) Description 10/02/2023 Hospital Encounter Tyler Bennett MD [address] [phone] Social History Tobacco Use Types Packs/Day Years Used Date Smoking Tobacco: Never Smokeless Tobacco: Never Alcohol Use Standard Drinks/Week Comments Yes 16.7 (1 standard drink = 0.6 oz pure alcohol) [facility] Utilities Answer Date Recorded In the past 12 months has e electric, gas, oil, or water [employer] threatened to shut off services in your [...] place to sleep or slept in a senior care (including now)? No 12/27/2023 Housing Stability Vital Sign Answer Varinder e Recorded In the last 12 months, was t here a time when you were not able to pay the mortgage or rent on time? No 11/30/2024 In the past 12 months, how m any times have you moved where you were living? 1 11/30/2024 At any time in the past [address] [facility], were you homeless or living in a senior care (including now)? Patient unable to answer 11/30/2024 Sex and Gender Information Value Date Recorded Sex Assigned at Male 12/04/2024 9:12 AM CROP RESEARCH SCIENTIST Legal Sex Male 5:48 PM CROP RESEARCH SCIENTIST Gender Identity Not on file Sexual Orientation Not on file documented as of this encounter Functional Status * Question Answer Date of Assessment Author Status Do you have serious difficulty walking or climbing stairs? Yes 11/30/2024 6:47 PM CROP RESEARCH SCIENTIST Ella Burch RN Act claudia * Question Answer Date [...] Date Author Status No 10/02/2023 2:18 PM Raul Williamson RN Active documented in this encounter Plan of Treatment Upcoming Encounters Date Type Department Care Team (Late st Contact Info) Description 03/13/2025 11:00 AM CDT Office Visit [facility] [place] [address] [place] [address] Emeka Garcia MD [address] [place], [place] [address] 05/15/2025 8:30 AM CDT [facility] [address] [place] [address] Viv Seo MD [address] [place] [phone] 05/20/2025 2:45 PM CDT Office Visit [facility] [place] [address] [place] [address] Viv Seo MD 9 [place], [place] [phone] documented as of this encounter Goals Goal [...] Rule Out 12/19/2023 12/19/2023 12/19/2023 6:05 AM CROP RESEARCH SCIENTIST COVID-19 Rule Out 12/26/2023 12/26/2023 12/26/2023 5:39 PM CROP RESEARCH SCIENTIST documented as of this encounter Care Teams Cell Assembly Pinner Relationship Specialty Start Date End Date New Referring, Provider PCP - General UNKNOWN PHYSICIAN SPECIALTY 10/02/23 10/04/23 Anne Kendrick MD [address] [place] [address] PCP - General FAMILY PRACTICE 10/05/23 11/29/24 Kahlil Peres MD [address] [place] [address] PCP - General FAMILY PRACTICE 11/30/24 Emeka Garcia MD [address] [place] [address] Consulting Physician CLINICAL CARDIAC ELECTROPHYSIOLOGY 03/30/23 Viv Seo MD [address] [place], [place] [address] Consulting Physician CARDIOVASCULAR DISEASE 05/11/24 documented as of this encounter
--- OUTSIDE RECORDS SUMMARY | 2024-12-28 15:09 | XMS_ITS | Encounter Summary ---
Author Organization [facility] Address [facility] [place] [address] Care Team Providers Care Distributor Operator Name Role Phone Emeka Garcia MD Unavailable [phone] Anne Kendrick MD Primary Care Provider [phone] Viv Seo MD Unavailable Kahlil Peres MD Primary Care Provider [phone] Encounter Details Date Type Department Care Team (Late st Contact Info) Description 01/02/2024 Hospital Follow-up Call [facility] [address] [place] [address] Dipika Moseley, RN Social History Tobacco Use Types Packs/Day Years Used Date Smoking Tobacco: Never Smokeless Tobacco: Never Alcohol Use Standard Drinks/Week Comments Yes 0 (1 standard drink = 0.6 oz pur e alcohol) [facility] Utilities Answer Date Recorded In the past 12 months has e [employer], gas, oil, or water [employer] threatened to shut off services in your [...] place to sleep or slept in a group home (including now)? No 12/27/2023 Sex and Gender Information Value Date Recorded Sex Assigned at Male 12/04/2024 9:12 AM WEB PRODUCER Legal Sex Male 5:48 PM WEB PRODUCER Gender Identity Not on file Sexual Orientation Not on file documented as of this encounter Functional Status * Are you deaf or do you have serious difficulty hearing Answer Date of Assessment Author Status No 12/27/2023 8:25 AM Em Spann RN Active * Are you blind or [...] Description 03/13/2025 11:00 AM CDT Office Visit [facility] [place] [address] Emeka Garcia MD [address] [place] [address] 05/15/2025 8:[address] [facility] [place] [address] Viv Seo MD [address] [place] [address] 05/20/2025 2:45 PM CDT Office Visit [facility] [place] [address] Viv Seo MD [address] [place] [address] documented as of this encounter Goals Goal Patient Goal Type Associated Problems Recent Progress Patient-Stated? Author Patient will return to prior living situation and remain independent in ADLs upon discharge from hospital Lifestyle Vicky Moreira RN documented as of this encounter Visit Diagnoses Not on filedocumented in this encounter Care Teams Distributor Operator Relationship Specialty Start Date End Date Anne Kendrick MD [address] [place] [address] [place] [address] PCP - General FAMILY PRACTICE 10/05/23 11/29/24 Kahlil Peres MD [address] [place] [phone] PCP - General FAMILY PRACTICE 11/30/24 Emeka Garcia MD [address] [place] [phone] Consulting Physician CLINICAL CARDIAC ELECTROPHYSIOLOGY 03/30/23 Viv Seo MD [address] [place] [phone] Consulting Physician CARDIOVASCULAR DISEASE 05/11/24 documented as of this encounter
--- OUTSIDE RECORDS SUMMARY | 2024-12-28 15:09 | XMS_ITS ---
Author Organization [facility] Address [address] [facility] [address] [place], [place] [id number] Care Team Providers Care Logistics Service Representative Name Role Phone ALICE FALCON Unavailable [phone] Migration, Provider Unavailable Unavailable Allergies Allergen (clinical drug ingredient) Drug/Non Drug Allergy documented on EMR Reaction Allergy Type Onset Date Status Magnesium Unknown Drug Allergy 05/26/2022 Active REASON FOR VISIT EMR-Nando Medications Medication SIG (Take, Route, Frequency, Duration) Notes Start Date End Date Status FENOFIBRATE MICRONIZED 48 MG TABLET *Reorder from [employer] for eRx and Interaction Alerts* 05/26/2022 Active [...] Encounters Encounter Location Date Provider Diagnosis Cardiology [facility] [address] [facility] [address] [place], [place] [phone] 08/07/2023 Provider Migration Plan Of Treatment No Information Progress Notes * TERRI SALDIVAR RDOB: 5 (69 yo M)Acc No.[id number]:08/07/2023 Patient: Zach TERRI GOODEN :1955 A ge:68 Y S ex:Male Address:[facility] [employer] [facility], [place], [address] Subjective: * Chief Complaints: * E Cleopatra * Medical History: * Surgical History: B iopsy of lung (69897130) RIGHT Procedure on shoulder (919839328) H[employer] S[employer]OL LEFT SHOULDER SEPARATION Colonoscopy 03/25/2013Percutaneous transluminal coronary angioplasty ([id number]) STENT TO LAD -CARDIAC CATH 2 STENTS 08/21/2012 * Hospitalization/Major Diagno stic Procedure: * Family History: F ather: Parents , Notes: copd; lung cancer . M other: Parents , Notes: CAD ; diabetes . * Social History: M igrated Social History: M igrated Social History: Alcohol Intake: Moderate 06/29/2019,Tobacco Years: Never smoker 06/29/2019,. * Medications: T akingAllopurinol 100 MG Tablet Oral Atorvastatin Calcium 80 MG Tablet Oral Fenofibrate 48 MG Tablet Oral Levothyroxine Sodium 125 MCG Tablet Oral Lisinopril 5 MG Tablet Oral Metoprolol Tartrate 50 MG Tablet Oral NIFEdipine 20 mg Capsule Oral Torsemide 10 MG Tablet Oral Eliquis 5 MG Tablet Oral FENOFIBRATE MICRONIZED 48 MG TABLET , Notes to Pharmacist: *Reorder from [email or web address] for eRx and Interaction Alerts*Taking Allopurinol 100 [...] TABLET , Notes to Pharmacist: *Reorder from [email or web address] for eRx and Interaction Alerts* * Allergies: Noris agnesium: Allergy - Onset Date 05/26/2022 Objective: * Vitals: * Physical Examination: Assessment: Plan: * Treatment: * Procedure Codes: * * Date:
--- OUTSIDE RECORDS SUMMARY | 2024-12-28 15:10 | XMS_ITS | Clinical Summary ---
Author Organization [facility] Address [facility] [place] [address] Care Team Providers Care Svp Operations Name Role Phone Emeka Garcia MD Unavailable [phone] Viv Seo MD Unavailable Kahlil Peres MD Primary Care Provider [phone] Allergies Active Allergy Reactions Criticality Noted Date [...] (48 mg total) by mouth daily. 11/16/20 Active torsemide (DEMADEX) 10 MG tablet Take [...] 2 (two) times daily. 480 tablet 12/18/19 Active amLODIPine (NORVASC) 10 MG tablet Take 1 tablet (10 mg total) by mouth daily. 60 tablet 12/19/19 Active DAPTOmycin (CUBICIN) Inject 10.5 mLs (525 [...] (200 mg total) by mouth daily. 11/17/20 22 025 Discontinued(Er ror) atorvastatin (LIPITOR) 80 MG tablet Take 1 tablet (80 mg total) by mouth nightly at bedtime. 11/16/20 22 025 Discontinued(St op Taking at Discharge) lisinopril (PRINIVIL) 10 MG tablet Take 1 tablet (10 mg total) by mouth 2 (two) times daily. 11/16/20 22 025 Discontinued(Er ror) levothyroxine (SYNTHROID) 125 MCG tablet Take 1 tablet (125 mcg total) by mouth daily. 025 Discontinued(Er ror) DULoxetine (CYMBALTA) 60 MG capsule Take 30 mg by mouth daily. For depression 05/12/20 23 025 Discontinued(Er ror) ezetimibe (ZETIA) 10 MG tablet Take 1 tablet (10 mg total) by mouth daily. 08/31/20 025 Discontinued(St op Taking at Discharge) Choline [...] 11/30/2024 NSTEMI (non-ST elevated myoc ardial infarction) ([facility]) 12/26/2023 Multiple fractures of ribs, bilateral, initial encounter for closed fracture 10/02/2023 Fall 10/02/2023 SOB (shortness of breath) on exertion 12/30/2022 Encounters Date Type Department Care Team Description 12/19/2024 [facility]phone [facility] [address] [place] [address] Emeka Garcia MD Error 11/30/2024 2:31 PM CORRESPONDENCE REVIEW CLERK - 12/18/2024 12:39 PM CORRESPONDENCE REVIEW CLERK Hospital Encounter [facility] Neurology [address] [place] [address] Lara Ramos MD Ahmed, Asad N, MD Missula, Venkata R Karthik, MD Anunobi, Nnamdi, MD Udeozo, Obiora I, MD Sonani, Bhavin V., MD Hoffman, Donn More MD Discharge Disposition: Group Home Facility 11/30/2024 Travel from Last 3 Months Immunizations Name Administration Dates Next Due Tdap (Boostrix) 07/11/2024 Tdap (Generic) 06/03/2015 Social History Tobacco Use Types Packs/Day Years Used Date Smoking Tobacco: Never Smokeless Tobacco: Never Tobacco Cessation:Counseling Given: Not Answered Alcohol Use Standard Drinks/Week Comments Yes 16.7 (1 standard drink = 0.6 oz pure alcohol) [facility] Utilities Answer Date Recorded In the past 12 months has e [employer], gas, oil, or water [employer] threatened to shut off services in your [...] place to sleep or slept in a long term (including now)? No 12/27/2023 Housing Stability Vital Sign Answer Varinder e Recorded In the last 12 months, was t here a time when you were not able to pay the mortgage or rent on time? No 11/30/2024 In the past 12 months, how m any times have you moved where you were living? 1 11/30/2024 At any time in the past 12 m [facility], were you homeless or living in a long term (including now)? Patient unable to answer 11/30/2024 Sex and Gender Information Value Date Recorded Sex Assigned at Male 12/04/2024 9:12 AM CORRESPONDENCE REVIEW CLERK Legal Sex Male 5:48 PM CORRESPONDENCE REVIEW CLERK Gender Identity Not on file Sexual Orientation Not on file Last Filed Vital Signs Vital Sign Reading Time Taken Comments Blood Pressure 119/71 12/18/2024 8:01 AM CORRESPONDENCE REVIEW CLERK Pulse 82 12/18/2024 8:01 AM CORRESPONDENCE REVIEW CLERK Temperature 36.5 C (97.7 F) 12/18/2024 8:01 AM CORRESPONDENCE REVIEW CLERK Respiratory Rate 18 12/18/2024 8:01 AM CORRESPONDENCE REVIEW CLERK Oxygen Saturation 99% 12/18/2024 8:01 AM CORRESPONDENCE REVIEW CLERK Inhaled Oxygen Concentration - - Weight 64.3 kg (141 lb 12.1 oz) 12/18/2024 3:25 AM CORRESPONDENCE REVIEW CLERK Height 177.8 cm (5' 10 ) 12/17/2024 4:26 AM CORRESPONDENCE REVIEW CLERK Body Mass Index 20.34 12/17/2024 4:26 AM CORRESPONDENCE REVIEW CLERK Plan of Treatment Upcoming Encounters Date Type Department Care Team (Late st Contact Info) Description 03/13/2025 11:00 AM CDT Office Visit [facility] [address] [place] [address] Emeka Garcia MD [address] [place] [address] 05/15/2025 8:[address] [facility] [place] [address] Viv Seo MD [address] [place] [address] 05/20/2025 2:45 PM CDT Office Visit [facility] [address] [place] [address] Viv Seo MD [address] [place] [address] Health Maintenance Due Date Last Done Comments [...] upon discharge from hospital Lifestyle Vicky Moreira miller head Procedure Name Priority Date/Time Associated Diagnosis Comments POCT GLUCOSE - HULL DOCKED DEVICE Routine 12/18/2024 12:02 PM CORRESPONDENCE REVIEW CLERK USV VAST TEAM MIDLINE INSERT >5YR STAT 12/18/2024 11:15 AM CORRESPONDENCE REVIEW CLERK BASIC METABOLIC PANEL STAT 12/18/2024 9:13 AM CORRESPONDENCE REVIEW CLERK POCT GLUCOSE - HULL DOCKED DEVICE Routine 12/18/2024 5:42 AM CORRESPONDENCE REVIEW CLERK POCT GLUCOSE - HULL DOCKED DEVICE Routine 12/18/2024 12:00 AM CORRESPONDENCE REVIEW CLERK POCT GLUCOSE - HULL DOCKED DEVICE Routine 12/17/2024 5:26 PM CORRESPONDENCE REVIEW CLERK POCT GLUCOSE - HULL DOCKED DEVICE Routine 12/17/2024 12:15 PM CORRESPONDENCE REVIEW CLERK CT GD ASPIR+BX BONE MARROW Today 12/17/2024 9:07 AM CORRESPONDENCE REVIEW CLERK FLOW CYTOMETRY Routine 12/17/2024 9:00 AM CORRESPONDENCE REVIEW CLERK PROTHROMBIN TIME, VENOUS STAT 12/17/2024 8:00 AM CORRESPONDENCE REVIEW CLERK CBC W/DIFF AUTOMATED Routine 12/17/2024 3:45 AM CORRESPONDENCE REVIEW CLERK BASIC METABOLIC PANEL Routine 12/17/2024 3:45 AM CORRESPONDENCE REVIEW CLERK PATHOLOGY Routine 12/17/2024 12:00 AM CORRESPONDENCE REVIEW CLERK POCT GLUCOSE - HULL DOCKED DEVICE Routine 12/16/2024 4:38 PM CORRESPONDENCE REVIEW CLERK POCT GLUCOSE - HULL DOCKED DEVICE Routine 12/16/2024 11:51 AM CORRESPONDENCE REVIEW CLERK POCT GLUCOSE - HULL DOCKED DEVICE Routine 12/16/2024 5:11 AM CORRESPONDENCE REVIEW CLERK POCT GLUCOSE - HULL DOCKED DEVICE Routine 12/15/2024 8:11 PM CORRESPONDENCE REVIEW CLERK ECG 12-LEAD Routine 12/15/2024 6:38 PM CORRESPONDENCE REVIEW CLERK POCT GLUCOSE - HULL DOCKED DEVICE Routine 12/15/2024 4:00 PM CORRESPONDENCE REVIEW CLERK POCT GLUCOSE - HULL DOCKED DEVICE Routine 12/15/2024 11:28 AM CORRESPONDENCE REVIEW CLERK POCT GLUCOSE - HULL DOCKED DEVICE Routine 12/15/2024 5:12 AM CORRESPONDENCE REVIEW CLERK CBC, AUTO, NO DIFF Routine 12/15/2024 3: 14 AM CORRESPONDENCE REVIEW CLERK BASIC METABOLIC PANEL Routine 12/15/2024 3:14 AM CORRESPONDENCE REVIEW CLERK POCT GLUCOSE - HULL DOCKED DEVICE Routine 12/15/2024 12:28 AM CORRESPONDENCE REVIEW CLERK POCT GLUCOSE - HULL DOCKED DEVICE Routine 12/14/2024 7:57 PM CORRESPONDENCE REVIEW CLERK POCT GLUCOSE - HULL DOCKED DEVICE Routine 12/14/2024 5:42 PM CORRESPONDENCE REVIEW CLERK POCT GLUCOSE - HULL DOCKED DEVICE Routine 12/14/2024 1:28 PM CORRESPONDENCE REVIEW CLERK POCT GLUCOSE - HULL DOCKED DEVICE Routine 12/14/2024 6:26 AM CORRESPONDENCE REVIEW CLERK POCT GLUCOSE - HULL DOCKED DEVICE Routine 12/13/2024 10:49 PM CORRESPONDENCE REVIEW CLERK POCT GLUCOSE - HULL DOCKED DEVICE Routine 12/13/2024 9:20 PM CORRESPONDENCE REVIEW CLERK POCT GLUCOSE - HULL DOCKED DEVICE Routine 12/13/2024 6:12 PM CORRESPONDENCE REVIEW CLERK POCT GLUCOSE - HULL DOCKED DEVICE Routine 12/13/2024 11:57 AM CORRESPONDENCE REVIEW CLERK IMMUNOFIXATION, URINE 24 HR Routine 12/13/2024 11:30 AM CORRESPONDENCE REVIEW CLERK PROTEIN ELECTROPHORESIS URINE 24 HR Routine 12/13/2024 11:30 AM CORRESPONDENCE REVIEW CLERK PROTEIN TOTAL URINE 24 HR Nurse Collected Priority 12/13/2024 11:30 AM CORRESPONDENCE REVIEW CLERK Anemia, unspecified type POCT GLUCOSE - HULL DOCKED DEVICE Routine 12/13/2024 6:29 AM CORRESPONDENCE REVIEW CLERK CBC, AUTO, NO DIFF Routine 12/13/2024 2: 20 AM CORRESPONDENCE REVIEW CLERK BASIC METABOLIC PANEL Routine 12/13/2024 2:20 AM CORRESPONDENCE REVIEW CLERK POCT GLUCOSE - HULL DOCKED DEVICE Routine 12/12/2024 7:51 PM CORRESPONDENCE REVIEW CLERK POCT GLUCOSE - HULL DOCKED DEVICE Routine 12/12/2024 4:56 PM CORRESPONDENCE REVIEW CLERK XR CHEST PORTABLE Today 12/12/2024 12:15 PM CORRESPONDENCE REVIEW CLERK URIC ACID BLOOD Routine 12/12/2024 11:42 AM CORRESPONDENCE REVIEW CLERK Anemia, unspecified type LDH, LACTATE DEHYDROGENASE Routine 12/12/2024 11:42 AM CORRESPONDENCE REVIEW CLERK Anemia, unspecified type BETA 2 MICROGLOBULIN, SERUM (QST) Routine 12/12/2024 11:42 AM CORRESPONDENCE REVIEW CLERK Anemia, unspecified type POCT GLUCOSE - HULL DOCKED DEVICE Routine 12/12/2024 11:05 AM CORRESPONDENCE REVIEW CLERK POCT GLUCOSE - HULL DOCKED DEVICE Routine 12/12/2024 6:15 AM CORRESPONDENCE REVIEW CLERK CBC W/DIFF AUTOMATED Routine 12/12/2024 2:57 AM CORRESPONDENCE REVIEW CLERK BLOOD SMEAR INTERPRETATION BY Routine 12/12/2024 2:57 AM CORRESPONDENCE REVIEW CLERK Anemia, unspecified type CBC, AUTO, NO DIFF Routine 12/12/2024 2: 57 AM CORRESPONDENCE REVIEW CLERK BASIC METABOLIC PANEL Routine 12/12/2024 2:57 AM CORRESPONDENCE REVIEW CLERK CK (CPK) Routine 12/12/2024 2:57 AM CORRESPONDENCE REVIEW CLERK PATHOLOGY Routine 12/12/2024 12:00 AM CORRESPONDENCE REVIEW CLERK POCT GLUCOSE - HULL DOCKED DEVICE Routine 12/11/2024 8:40 PM CORRESPONDENCE REVIEW CLERK POCT GLUCOSE - HULL DOCKED DEVICE Routine 12/11/2024 12:36 PM CORRESPONDENCE REVIEW CLERK XR BONE SURVEY COMPLETE Today 12/11/2024 12:12 PM CORRESPONDENCE REVIEW CLERK IMMUNOFIXATION Routine 12/11/2024 8:44 AM CORRESPONDENCE REVIEW CLERK KAPPA LAMBDA FREE RATIO (QST) Routine 12/11/2024 8:44 AM CORRESPONDENCE REVIEW CLERK PROTEIN, ELECTROPHORESIS Routine 12/11/2024 8:44 AM CORRESPONDENCE REVIEW CLERK POCT GLUCOSE - HULL DOCKED DEVICE Routine 12/11/2024 5:36 AM CORRESPONDENCE REVIEW CLERK POCT GLUCOSE - HULL DOCKED DEVICE Routine 12/11/2024 12:31 AM CORRESPONDENCE REVIEW CLERK POCT GLUCOSE - HULL DOCKED DEVICE Routine 12/10/2024 11:38 PM CORRESPONDENCE REVIEW CLERK POCT GLUCOSE - HULL DOCKED DEVICE Routine 12/10/2024 8:10 PM CORRESPONDENCE REVIEW CLERK POCT GLUCOSE - HULL DOCKED DEVICE Routine 12/10/2024 7:31 PM CORRESPONDENCE REVIEW CLERK POCT GLUCOSE - HULL DOCKED DEVICE Routine 12/10/2024 5:29 PM CORRESPONDENCE REVIEW CLERK VANCOMYCIN TIMED 12/10/2024 10:03 AM CORRESPONDENCE REVIEW CLERK BASIC METABOLIC PANEL Routine 12/10/2024 7:04 AM CORRESPONDENCE REVIEW CLERK CBC W/DIFF AUTOMATED Routine 12/10/2024 7:04 AM CORRESPONDENCE REVIEW CLERK CT HIP RT WO CON Today 12/09/2024 12:15 PM CORRESPONDENCE REVIEW CLERK CBC W/DIFF AUTOMATED Routine 12/09/2024 3:26 AM CORRESPONDENCE REVIEW CLERK BASIC METABOLIC PANEL Routine 12/09/2024 3:26 AM CORRESPONDENCE REVIEW CLERK BASIC METABOLIC PANEL TIMED 12/07/2024 7:42 PM CORRESPONDENCE REVIEW CLERK VANCOMYCIN TIMED 12/07/2024 7:42 PM CORRESPONDENCE REVIEW CLERK BLOOD GAS, ARTERIAL LAB Routine 12/07/2024 6:21 AM CORRESPONDENCE REVIEW CLERK PRO-BRAIN NATRIURETIC PEPTIDE Routine 12/07/2024 6:21 AM CORRESPONDENCE REVIEW CLERK XR CHEST PORTABLE STAT 12/07/2024 5:2 4 AM CORRESPONDENCE REVIEW CLERK BASIC METABOLIC PANEL Routine 12/07/2024 1:53 AM CORRESPONDENCE REVIEW CLERK CBC W/DIFF AUTOMATED Routine 12/07/2024 1:53 AM CORRESPONDENCE REVIEW CLERK USE ECHOCARDIOGRAM W CON Today 12/06/2024 11:32 AM CORRESPONDENCE REVIEW CLERK CBC W/DIFF AUTOMATED STAT 12/06/2024 3:21 AM CORRESPONDENCE REVIEW CLERK COMPREHENSIVE METABOLIC PANEL Routine 12/06/2024 1:39 AM CORRESPONDENCE REVIEW CLERK BASIC METABOLIC PANEL TIMED 12/05/2024 8:42 PM CORRESPONDENCE REVIEW CLERK VANCOMYCIN TIMED 12/05/2024 6:44 PM CORRESPONDENCE REVIEW CLERK XR CHEST PORTABLE Today 12/05/2024 2:2 4 PM CORRESPONDENCE REVIEW CLERK XR SPEECH SWALLOW SJS ONLY Routine 12/05/2024 9:43 AM CORRESPONDENCE REVIEW CLERK BASIC METABOLIC PANEL Routine 12/05/2024 1:51 AM CORRESPONDENCE REVIEW CLERK MAGNESIUM Routine 12/05/2024 1:51 AM CORRESPONDENCE REVIEW CLERK CBC W/DIFF AUTOMATED Routine 12/05/2024 1:51 AM CORRESPONDENCE REVIEW CLERK POCT GLUCOSE - HULL DOCKED DEVICE Routine 12/04/2024 11:23 AM CORRESPONDENCE REVIEW CLERK XR CHEST PORTABLE Today 12/04/2024 8:4 6 AM CORRESPONDENCE REVIEW CLERK POCT GLUCOSE - HULL DOCKED DEVICE Routine 12/04/2024 6:03 AM CORRESPONDENCE REVIEW CLERK BASIC METABOLIC PANEL TIMED 12/04/2024 5:45 AM CORRESPONDENCE REVIEW CLERK PARTIAL THROMBOPLASTIN TIME,PTT TIMED 12/04/2024 5:45 AM CORRESPONDENCE REVIEW CLERK HEPARIN, ANTI XA, UFH TIMED 12/04/2024 5:45 AM CORRESPONDENCE REVIEW CLERK MAGNESIUM Routine 12/04/2024 5:45 AM CORRESPONDENCE REVIEW CLERK CBC W/DIFF AUTOMATED Routine 12/04/2024 5:45 AM CORRESPONDENCE REVIEW CLERK VANCOMYCIN TIMED 12/04/2024 5:45 AM CORRESPONDENCE REVIEW CLERK PARTIAL THROMBOPLASTIN TIME,PTT Routine 12/04/2024 12:15 AM CORRESPONDENCE REVIEW CLERK POCT GLUCOSE - HULL DOCKED DEVICE Routine 12/04/2024 12:04 AM CORRESPONDENCE REVIEW CLERK POCT GLUCOSE - HULL DOCKED DEVICE Routine 12/03/2024 4:38 PM CORRESPONDENCE REVIEW CLERK PARTIAL THROMBOPLASTIN TIME,PTT Routine 12/03/2024 4:34 PM CORRESPONDENCE REVIEW CLERK POCT GLUCOSE - HULL DOCKED DEVICE Routine 12/03/2024 11:32 AM CORRESPONDENCE REVIEW CLERK PARTIAL THROMBOPLASTIN TIME,PTT TIMED 12/03/2024 7:45 AM CORRESPONDENCE REVIEW CLERK CBC W/DIFF AUTOMATED Routine 12/03/2024 4:22 AM CORRESPONDENCE REVIEW CLERK MAGNESIUM Routine 12/03/2024 4:20 AM CORRESPONDENCE REVIEW CLERK BASIC METABOLIC PANEL Routine 12/03/2024 4:20 AM CORRESPONDENCE REVIEW CLERK PROCALCITONIN (PCT) STAT 12/02/2024 11:33 PM CORRESPONDENCE REVIEW CLERK LACTIC ACID STAT 12/02/2024 11:33 PM CORRESPONDENCE REVIEW CLERK PRO-BRAIN NATRIURETIC PEPTIDE STAT 12/02/2024 11:33 PM CORRESPONDENCE REVIEW CLERK POCT GLUCOSE - HULL DOCKED DEVICE Routine 12/02/2024 11:16 PM CORRESPONDENCE REVIEW CLERK BLOOD GAS, ARTERIAL LAB Routine 12/02/2024 11:10 PM CORRESPONDENCE REVIEW CLERK PARTIAL THROMBOPLASTIN TIME,PTT TIMED 12/02/2024 11:10 PM CORRESPONDENCE REVIEW CLERK LACTIC ACID TIMED 12/02/2024 9:50 PM CORRESPONDENCE REVIEW CLERK XR CHEST PORTABLE STAT 12/02/2024 7:0 2 PM CORRESPONDENCE REVIEW CLERK COMPREHENSIVE METABOLIC PANEL STAT 12/02/2024 6:58 PM CORRESPONDENCE REVIEW CLERK CBC W/DIFF AUTOMATED STAT 12/02/2024 6:58 PM CORRESPONDENCE REVIEW CLERK BLOOD GAS, ARTERIAL LAB STAT 12/02/2024 6:58 PM CORRESPONDENCE REVIEW CLERK LACTIC ACID Routine 12/02/2024 6:58 PM CORRESPONDENCE REVIEW CLERK CULTURE, BACTERIA, BLOOD STAT 12/02/2024 6:57 PM CORRESPONDENCE REVIEW CLERK ECG 12-LEAD STAT 12/02/2024 6:45 PM CORRESPONDENCE REVIEW CLERK POCT GLUCOSE - HULL DOCKED DEVICE Routine 12/02/2024 6:37 PM CORRESPONDENCE REVIEW CLERK PARTIAL THROMBOPLASTIN TIME,PTT TIMED 12/02/2024 6:12 PM CORRESPONDENCE REVIEW CLERK POCT GLUCOSE - HULL DOCKED DEVICE Routine 12/02/2024 4:26 PM CORRESPONDENCE REVIEW CLERK POCT GLUCOSE - HULL DOCKED DEVICE Routine 12/02/2024 12:15 PM CORRESPONDENCE REVIEW CLERK PARTIAL THROMBOPLASTIN TIME,PTT Routine 12/02/2024 10:46 AM CORRESPONDENCE REVIEW CLERK POCT GLUCOSE - HULL DOCKED DEVICE Routine 12/02/2024 6:07 AM CORRESPONDENCE REVIEW CLERK XR CHEST PORTABLE STAT 12/02/2024 5:3 9 AM CORRESPONDENCE REVIEW CLERK PARTIAL THROMBOPLASTIN TIME,PTT STAT 12/02/2024 4:07 AM CORRESPONDENCE REVIEW CLERK BASIC METABOLIC PANEL Routine 12/02/2024 1:17 AM CORRESPONDENCE REVIEW CLERK C-REACTIVE PROTEIN Routine 12/02/2024 1: 17 AM CORRESPONDENCE REVIEW CLERK POCT GLUCOSE - HULL DOCKED DEVICE Routine 12/01/2024 11:59 PM CORRESPONDENCE REVIEW CLERK PARTIAL THROMBOPLASTIN TIME,PTT STAT 12/01/2024 6:16 PM CORRESPONDENCE REVIEW CLERK POCT GLUCOSE - HULL DOCKED DEVICE Routine 12/01/2024 5:01 PM CORRESPONDENCE REVIEW CLERK PROTHROMBIN TIME, VENOUS STAT 12/01/2024 4:42 PM CORRESPONDENCE REVIEW CLERK HEPARIN, ANTI XA, UFH STAT 12/01/2024 4:42 PM CORRESPONDENCE REVIEW CLERK POCT GLUCOSE - HULL DOCKED DEVICE Routine 12/01/2024 11:23 AM CORRESPONDENCE REVIEW CLERK PRO-BRAIN NATRIURETIC PEPTIDE STAT 12/01/2024 4:58 AM CORRESPONDENCE REVIEW CLERK BLOOD GAS, VENOUS STAT 12/01/2024 4:5 8 AM CORRESPONDENCE REVIEW CLERK PHOSPHORUS, INORGANIC PHOSPHATE STAT 12/01/2024 4:58 AM CORRESPONDENCE REVIEW CLERK CBC W/DIFF AUTOMATED STAT 12/01/2024 4:58 AM CORRESPONDENCE REVIEW CLERK LACTIC ACID STAT 12/01/2024 4:58 AM CORRESPONDENCE REVIEW CLERK MAGNESIUM Routine 12/01/2024 4:58 AM CORRESPONDENCE REVIEW CLERK COMPREHENSIVE METABOLIC PANEL Routine 12/01/2024 4:58 AM CORRESPONDENCE REVIEW CLERK C-REACTIVE PROTEIN Routine 12/01/2024 4: 58 AM CORRESPONDENCE REVIEW CLERK CT HEAD WO CON Today 11/30/2024 11:05 PM CORRESPONDENCE REVIEW CLERK BASIC METABOLIC PANEL TIMED 11/30/2024 8:43 PM CORRESPONDENCE REVIEW CLERK C-REACTIVE PROTEIN STAT 11/30/2024 4: 39 PM CORRESPONDENCE REVIEW CLERK BASIC METABOLIC PANEL STAT 11/30/2024 4:39 PM CORRESPONDENCE REVIEW CLERK VITAMIN B1 THIAMINE STAT 11/30/2024 4 :39 PM CORRESPONDENCE REVIEW CLERK THYROID STIM HORMONE TSH Routine 11/30/2024 4:39 PM CORRESPONDENCE REVIEW CLERK PROTHROMBIN TIME, VENOUS Routine 11/30/2024 4:39 PM CORRESPONDENCE REVIEW CLERK CBC W/DIFF AUTOMATED Routine 11/30/2024 4:39 PM CORRESPONDENCE REVIEW CLERK from Last 3 Months Results * (ABNORMAL) POCT glucose (12/18/2024 12:02 PM CORRESPONDENCE REVIEW CLERK) Only the most recent of47 resultswithin the time period is included. GLUCOSE POC 143(H) 70 - 109 12/18/2024 12:50 PM CORRESPONDENCE REVIEW CLERK [facility] 12/18/2024 12:0 2 PM CORRESPONDENCE REVIEW CLERK Donn Hoffman MD POCT ORDERABLES - DEVICE Final R esult [facility] [address] [place] [address], [id number] * USV VAST TEAM MIDLINE INSERT >5YR (12/18/2024 11:15 AM CORRESPONDENCE REVIEW CLERK) Anatomical Region Laterality Modality NA Vascular Ultraso und 12/18/2024 10:4 9 AM CORRESPONDENCE REVIEW CLERK Narrative 12/18/2024 10:49 AM CORRESPONDENCE REVIEW CLERK This report does not contain a radiologist's interpretation. Please review associated procedure and/or operative report. Procedure Note Majo Dunham MD - 12/18/2024 This report does not contain a radiologist's interpretation. Please review associated procedure and/or operative report. us Donn Hoffman MD [facility] Final Result * (ABNORMAL) BASIC METABOLIC PANEL (12/18/2024 9:13 AM CORRESPONDENCE REVIEW CLERK) Only the most recent of16 resultswithin the time period is included. SODIUM S/P/B 135(L) 136 - 145 MMOL/L 12/18/2024 9:45 AM CORRESPONDENCE REVIEW CLERK [facility] POTASSIUM S/P/B 4.5 3.5 - 5.1 MMOL/L 12/18/2024 9:45 AM CORRESPONDENCE REVIEW CLERK [facility] CHLORIDE S/P/B 106 97 - 115 MMOL/L 12/18/2024 9:[address] [facility] CO2 26.0 21.0 - 32.0 MMOL/L 12/18/2024 9:[address] [facility] GLUCOSE 124(H) 74 - 106 MG/DL 12/18/2024 9:[address] [facility] BUN 28(H) 7 - 18 MG/DL 12/18/2024 9:[address] [facility] CREATININE S/P/B 1.33(H) 0.70 - 1.30 MG/DL 12/18/2024 9:[address] [facility] CALCIUM S/P/B 8.9 8.5 - 10.1 MG/DL 12/18/2024 9:[address] [facility] ANION GAP 3.0 2.0 - 10.0 MMOL/L 12/18/2024 9:[address] [facility] OSMOLALITY (CALC) 287 MOSM/KG 025 9:[address] [facility] Comment:REFERENCE RANGE NOT ESTABLISHED GFR ESTIMATE 58(L) >90 ML/MIN/1. 73 M2 12/18/2024 9:[address] [facility] GFR NOTES GFR REFERENCE S: 12/18/2024 9:[address] [facility] Comment: THE ESTIMATED GFR IS [...] FAILURE: <15 ml/min/1.73 m2 12/18/2024 9:13 AM CORRESPONDENCE REVIEW CLERK Donn Hoffman MD LABORATORY Final Result [address] [address], [id number] * CT GD ASPIR+BX BONE MARROW (12/17/2024 9:07 AM CORRESPONDENCE REVIEW CLERK) Anatomical Region Laterality Modality Bone Computed Tomogra phy 12/18/2024 8:50 AM CORRESPONDENCE REVIEW CLERK Impressions 12/18/2024 10:53 AM CORRESPONDENCE REVIEW CLERK IMPRESSION: CT-guided percutaneous bone marrow biopsy, as described. The attending radiologist, Dr. Glasgow, was in the department for all critical portions of the procedure, has reviewed the images, and agrees with the content of this report. Dictated By: VEL Dove on 12/18/2024 8:50 AM Ordered By: DIONICIO BAKER Interpreted By: VEL Dove, 12/18/2024 8:50 AM Narrative 12/18/2024 10:53 AM CORRESPONDENCE REVIEW CLERK [address] [address] PROCEDURE: CT-GUIDED BONE MARROW ASPIRATION AND BIOPSY DATE OF PROCEDURE: 12/17/2024 8:27 AM INDICATION: Anemia. Concern for myeloma. Primary provider: Jacob Campos PA-C Supervising provider: Reyes Glasgow M.D. Conscious sedation: Administered and monitored by a qualified interventional radiology nurse under supervision of the interventional physician technical administrative assistant. There was continuous monitoring of vital signs including pulse oximetry, end-tidal CO2, and EKG. Total intraservice or [id number] sedation time: 4 minutes. TECHNIQUE AND FINDINGS: Informed written consent was obtained. The patient was then brought to the CT scanner suite, placed in the prone position, and [place] protocol was observed to verify correct patient, site, and procedure to be performed Preliminary CT scan was then performed demonstrating normal bone mineralization. A safe path of [...] The needle was then connected to an Dash motorized device to penetrate the cortex. At this point, the stylette was removed and serial aspiration of a total of 10 mL of marrow was obtained. Following this, again using the motorized [...] Procedure Note Reyes Glasgow MD - 12/18/[address] [address] PROCEDURE: CT-GUIDED BONE MARROW ASPIRATION AND BIOPSY DATE OF PROCEDURE: 12/17/2024 8:27 AM INDICATION: Anemia. Concern for myeloma. Primary provider: Jacob Campos PA-C Supervising provider: Reyes Glasgow M.D. Conscious sedation: Administered and monitored by a qualifiedinterventional radiology nurse under supervision of the interventionalphysician technical administrative assistant. There was continuous monitoring of vital signsincluding pulse oximetry, end-tidal CO2, and EKG. Total intraservice [id number] sedation time: 4 minutes. TECHNIQUE AND FINDINGS: Informed written consent was obtained. The patient was then brought to theCT scanner suite, placed in the prone position, and [place] protocol wasobserved to verify correct patient, site, [...] Interpreted By: VEL Dove, 12/18/2024 8:50 AM Dionicio Baker MD CT Final Result * Flow Cytometry (12/17/2024 9:00 AM CORRESPONDENCE REVIEW CLERK) FLOW CYTOMETRY RESULTS [facility] Department of Laboratory Medicine [address] [place] [phone] , extension [phone] Pathology Report Flow Cytometry Report Name: TERRI DEVRIES Specimen #: [id number] Age: 6 1955 (Age: 69) Location: [facility] Sex: M Procedure Date: 12/17/2024 Hospital #: [id number] Date Received: 12/17/2024 Date Reported: 12/23/2024 Provider: DIONICIO BAKER MD Source: Bone marrow aspiration (See report [id number]) FINAL DIAGNOSIS: Bone marrow aspirate, flow cytometric analysis: -No significant immunophenotypic abnormality is identified, see comments. Diagnosis Comment: Flow cytometric analysis of this bone marrow aspirate sample detects no abnormal B-cell, T-cell, plasma cell, or blast population. See also the bone marrow biopsy ([id number]) which is reviewed concurrently. Result: Tested: CD45, CD19, CD20, Surface [place], Surface Lambda, CD5, CD10, CD38, CD34, CD14, [...] polytypic kappa and lambda light chain expression. Gross examination (when applicable), interpretation, and sign out were performed at [facility], [address] [place] [address]. Electronically Signed Out RUBEN RIVERS MD This test was developed and its performance characteristics determined by [facility]. It has not been cleared or approved by the U.S. Food and Drug Administration. However, the use of Analyte Specific Reagents does not require FDA approval. [facility] OF [facility] 12/17/2024 9:00 AM CORRESPONDENCE REVIEW CLERK 12/17/2024 9:15 AM CORRESPONDENCE REVIEW CLERK Comment:Bone marrow aspirati on (See report [id number]) us Dionicio Baker MD PATHOLOGY/CYTOLOGY ORDERABLES Fi nal Result [facility] [address] [place] [address], [id number] * (ABNORMAL) PROTIME/INR, VENOUS (12/17/2024 8:00 AM CORRESPONDENCE REVIEW CLERK) Only the most recent of3 resultswithin the time period is included. PROTIME 13.8(H) 9.4 - 12.5 SEC 12/17/2024 8:29 AM CORRESPONDENCE REVIEW CLERK [facility] INR 1.2(H) 0.8 - 1.1 12/17/2024 8:[address] [facility] 12/17/2024 8:00 AM CORRESPONDENCE REVIEW CLERK Reyes Glasgow MD LABORATORY Final Resu lt Performing Organization Address [facility] Co de Phone Number [facility] [address] [place] [address], [phone] * (ABNORMAL) CBC W/DIFF AUTOMATED (12/17/2024 3:45 AM CORRESPONDENCE REVIEW CLERK) Only the most recent of12 resultswithin the time period is included. WBC 4.81 4.00 - 10.80 x10'3/uL 12/17/2024 4:[address] [facility] RBC 3.07(L) 4.50 - 6.10 x10'6/uL 12/17/2024 4:[address] [facility] HGB 9.8(L) 12.0 - 16.0 G/DL 12/17/2024 4:[address] [facility] HCT 30.4(L) 37.0 - 52.0 % 12/17/2024 4:[address] [facility] MCV 99.0 78.0 - 100.0 FL 12/17/2024 4:[address] [facility] MCH 31.9(H) 27.0 - 31.0 PG 12/17/2024 4:[address] [facility] MCHC 32.2(L) 33.0 - 36.0 G/DL 12/17/2024 4:[address] [facility] RDW 13.6 11.5 - 14.5 % 12/17/2024 4:[address] [facility] PLT 207 150 - 350 x10'3/uL 12/17/2024 4:[address] [facility] MPV 11.3(H) 7.4 - 10.4 FL 12/17/2024 4:[address] [facility] DIFFERENTIAL TYPE AUTOMATED DIFFERENTIAL 12/17/2024 4:[address] [facility] SEG NEUTROPHILS 60.5 % 4:[address] [facility] LYMPHOCYTES 22.5 % 12/17/2024 4:[address] [facility] MONOCYTES 12.9 % 12/17/2024 4:[address] [facility] EOSINOPHILS 3.3 % 12/17/2024 4:[address] [facility] BASOPHILS 0.4 % 12/17/2024 4:[address] [facility] IMMATURE GRANS % 0.4 % 12/17/19 4:[address] [facility] ABS. NEUTROPHILS 2.91 1.60 - 8.30 x10'3/uL 12/17/2024 4:[address] [facility] ABS. LYMPHOCYTES 1.08 0.80 - 4.70 x10'3/uL 12/17/2024 4:[address] [facility] ABS. MONOCYTES 0.62 0.00 - 1.50 x10'3/uL 12/17/2024 4:[address] [facility] ABS. EOSINOPHILS 0.16 0.00 - 0.40 x10'3/uL 12/17/2024 4:[address] [facility] ABS. BASOPHILS 0.02 0.00 - 0.20 x10'3/uL 12/17/2024 4:27 AM CORRESPONDENCE REVIEW CLERK [facility] ABS. IMMATURE GRANULOCYTES 0.02 0.00 - 0.03 x10'3/uL 12/17/2024 4:27 AM CORRESPONDENCE REVIEW CLERK [facility] ABS. NUCLEATED RBC'S 0.00 0.00 - 0.01 x10'3/uL 12/17/2024 4:27 AM CORRESPONDENCE REVIEW CLERK [facility] NRBC % 0.0 % 12/17/2024 4:27 AM CORRESPONDENCE REVIEW CLERK [facility] 12/17/2024 3:45 AM CORRESPONDENCE REVIEW CLERK Donn Hoffman MD LABORATORY Final Result [facility] [address] [place] [address], [id number] * Pathology (12/17/2024 12:00 AM CORRESPONDENCE REVIEW CLERK) Only the most recent of2 resultswithin the time period is included. PATHOLOGY [facility] Department of Laboratory Medicine [address] [place] [address] , extension [phone] Pathology Report Bone Marrow Report Name: TERRI DEVRIES Specimen #: [id number] Age: 6 1955 (Age: 69) Location: [facility] Sex: M Procedure Date: 12/17/2024 Hospital #: [id number] Date Received: 12/17/2024 Date Reported: 12/23/2024 Provider: LARA HOFFMAN MD Source: A: Bone marrow, left iliac aspiration B: Bone marrow left iliac biopsy Clinical History: Rule out myeloma. FINAL DIAGNOSIS: A, B) Bone marrow, left, biopsy and touch preparation, aspirate and clot section, and peripheral blood smear: -Limited sample with focal normocellular (30%) marrow with maturing trilineage hematopoiesis and no diagnostic evidence of plasma cell neoplasm, see comments. -Peripheral blood with mild normocytic anemia. Diagnosis [...] plasma cells (6% on 300-cell differential count). Flow cytometric analysis detects no abnormal B-cell, T-cell, plasma cell, or blast population (see separate report [id number]). In summary, there is no diagnostic evidence of plasma cell neoplasm identified in this limited bone marrow sample. The mild plasmacytosis is favored to be reactive in nature given the morphologic and immunophenotypic findings as described in the report. Gross Description: A. Received in B-plus fixative, labeled with a patient label and as BM LIC, is a 1.0 x 0.4 x 0.3 cm rubbery hemorrhagic tissue. The specimen is entirely submitted in cassette A1. B. Received in B-plus fixative, labeled with a patient label and as BX LIC, is a 1.2 x 0.2 cm porter-red bone core that displays a small amount of attached rubbery, hemorrhagic tissue. The specimen is entirely submitted in cassette B1 following decalcification in Immunodecal. Gross examination (when applicable), interpretation, and sign out were performed at [facility], [address] [place] [address]. All immunohistochemical and histochemical tests were developed by and performed at [facility], [address] [facility], [place] [address]. All tests reported here have not been cleared or approved by the U.S. Food and Drug Administration (FDA). This laboratory is regulated under CLIA as qualified to perform high-complexity testing. These tests are used for clinical purposes. They should not be regarded as investigational or for research. Positive and negative controls show appropriate reactivity. Electronically Signed Out RUBEN IRVERS MD INTERPRETATION: Peripheral Blood Comments: CBC data: [...] cell, or blast population (see separate report [id number]). Cytogenetics/FISH: Not performed. [facility] 12/17/2024 12/17/2024 10: 22 AM CORRESPONDENCE REVIEW CLERK Comment:Bone marrow, left il iac aspiration&Bone marrow left iliac biopsy us Lara Ramos MD PATHOLOGY/CYTOLOGY ORDERABLES Final Result [facility] [address] [place] [address], [id number] * ECG 12 lead (12/15/2024 6:38 PM CORRESPONDENCE REVIEW CLERK) Only the most recent of2 resultswithin the time period is included. 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: : 1955 Requested By: DONN HOFFMAN Order Number: [id number] Reading MD: Vvi Seo Measurements Intervals [place] Rate: 101 P: VT: 0 QRS: -55 QRSD: 105 T: 131 QT: 374 QTc: 486 Interpretive Statements ATRIAL FIBRILLATION WITH RAPID VENTRICULAR RESPONSE LEFT ANTERIOR FASCICULAR BLOCK [QRS AXIS <= -45, QR IN I, RS IN II] PROBABLE SEPTAL MYOCARDIAL INFARCTION , PROBABLY OLD [35 ms Q WAVE INV1/V2] ESPONDENCE REVIEW CLERK Donn Hoffman MD ECG ORDERABLES Final Result [facility] * (ABNORMAL) CBC, AUTO, NO DIFF (12/15/2024 3:14 AM CORRESPONDENCE REVIEW CLERK) Only the most recent of3 resultswithin the time period is included. WBC 6.63 4.00 - 10.80 x10'3/uL 12/15/2024 3:56 AM CORRESPONDENCE REVIEW CLERK [facility] RBC 3.27(L) 4.50 - 6.10 x10'6/uL 12/15/2024 3:56 AM CORRESPONDENCE REVIEW CLERK [facility] HGB 10.7(L) 12.0 - 16.0 G/DL 12/15/2024 3:[address] [facility] HCT 32.4(L) 37.0 - 52.0 % 12/15/2024 3:[address] [facility] MCV 99.1 78.0 - 100.0 FL 12/15/2024 3:[address] [facility] MCH 32.7(H) 27.0 - 31.0 PG 12/15/2024 3:[address] [facility] MCHC 33.0 33.0 - 36.0 G/DL 12/15/2024 3:[address] [facility] RDW 13.6 11.5 - 14.5 % 12/15/2024 3:[address] [facility] PLT 184 150 - 350 x10'3/uL 12/15/2024 3:[address] [facility] MPV 11.4(H) 7.4 - 10.4 FL 12/15/2024 3:[address] [facility] 12/15/2024 3:14 AM CORRESPONDENCE REVIEW CLERK Donn Hoffman MD LABORATORY Final Result [facility] [address] [place] [address], [id number] * IMMUNOFIXATION, URINE 24 HR (12/13/2024 11:30 AM CORRESPONDENCE REVIEW CLERK) IMMUNOFIXATION 24HR (U) SEE PATHOLOGIST'S INTERPRETATION 12/17/2024 1:[address] [facility] IMMUNOFIXATION INTERPRETATION 24HR THIS URINE IMMUNOTYPING WAS INTERPRETED BY 12/18/2024 12:[address] [facility] Comment: DR MELO MONTOYA MONOCLONAL PROTEIN NOT IDENTIFIED BENCE PINA PROTEIN NOT DETECTED. 12/13/2024 11:3 0 AM CORRESPONDENCE REVIEW CLERK Donn Hoffman MD URINE ORDERABLES Final Result Performing Organization Address [facility] de Phone Number [facility] [address] [place] [address], [phone] * (ABNORMAL) PROTEIN TOTAL URINE 24 HR (12/13/2024 11:30 AM CORRESPONDENCE REVIEW CLERK) PROTEIN URINE TOTAL RANDOM 79.1(H) <12.0 MG/DL 12/13/2024 12:41 PM CORRESPONDENCE REVIEW CLERK [facility] TOTAL PROTEIN 24HR (U) 1,146.95(H ) 0 - 149 MG/24HR 12/13/2024 12:41 PM CORRESPONDENCE REVIEW CLERK [facility] VOLUME (U) 1,450 ML 12/13/2024 12:16 PM CORRESPONDENCE REVIEW CLERK [facility] URINE SPECIMEN / Unknown 12/13/2024 11:30 AM CORRESPONDENCE REVIEW CLERK Nhung Seo MD URINE ORDERABLES Final Result Performing Organization Address [facility] de Phone Number [facility] [address] [place] [address], [phone] * (ABNORMAL) PROTEIN ELECTROPHORESIS URINE 24 HR (12/13/2024 11:30 AM CORRESPONDENCE REVIEW CLERK) TOTAL PROTEIN 24HR (U) 1,147.0(H) <100 MG/24HRS 12/17/2024 12:59 PM CORRESPONDENCE REVIEW CLERK [facility] INTERPRETATION THIS URINE PEP WAS INTERPRETED BY 12/18/2024 12:30 PM CORRESPONDENCE REVIEW CLERK [facility] Comment: DR MELO MONTOYA THERE IS MODERATE 24 HOUR PROTEINURIA COMPOSED OF LOWER MOLECULAR WEIGHT PROTEINS (SELECTIVE PROTEINURIA). BENCE PINA PROTEIN IS NOT DETECTED. 12/13/2024 11:3 0 AM CORRESPONDENCE REVIEW CLERK Donn Hoffman MD URINE ORDERABLES Final Result Performing Organization Address [facility] de Phone Number [facility] [address] [place] [address], [phone] * XR CHEST PORTABLE (12/12/2024 12:15 PM CORRESPONDENCE REVIEW CLERK) Only the most recent of6 resultswithin the time period is included. Anatomical Region Laterality Modality Chest Radiographic Modesta ging 12/12/2024 3:21 PM CORRESPONDENCE REVIEW CLERK Impressions 12/12/2024 3:22 PM CORRESPONDENCE REVIEW CLERK IMPRESSION: 1. NO SIGNIFICANT INTERVAL CHANGE. Signed: Diogenes Arriaga MD Referred By: MINA YOU Interpreted By: Diogenes Arriaga MD, 12/12/2024 3:21 PM Narrative 12/12/2024 3:22 PM CORRESPONDENCE REVIEW CLERK [address] [address] PATIENT NAME: TERRI DEVRIES EXAM: Chest one view DATE OF EXAM: 12/12/2024 COMPARISON EXAM: 12/07/2024 INDICATION: CHF TECHNIQUE: AP chest FINDINGS: Shallow inspiration. Mild cardiomegaly similar to previous study. Thoracic aorta remains mildly ectatic and tortuous. Mild pulmonary vascular congestion and edema similar to previous study. No new airspace consolidation. No gross pleural effusion. Procedure Note Diogenes Arriaga MD - 12/12/[address] [address] PATIENT NAME: TERRI DEVRIES EXAM: Chest one [...] (ABNORMAL) LDH, LACTATE DEHYDROGENASE (12/12/2024 11:42 AM CORRESPONDENCE REVIEW CLERK) LDH 280(H) 87 - 241 UNITS/L 12/12/2024 12:26 PM CORRESPONDENCE REVIEW CLERK [facility] 12/12/2024 11:4 2 AM CORRESPONDENCE REVIEW CLERK Nhung Seo MD LABORATORY Final Result Performing Organization Address City/[facility]/ZIP Co de Phone Number [facility] [address] [place] [address], [place] [phone] * (ABNORMAL) BETA 2 MICROGLOBULIN, SERUM (QST) (12/12/2024 11:42 AM CORRESPONDENCE REVIEW CLERK) BETA-2 MICROGLOBULIN 4.88(H) <=2.51 mg/L 12/17/2024 7:41 AM CORRESPONDENCE REVIEW CLERK [facility] ESTELA TAPIA Comment: Test Performed by Tam Hurtado, [employer] [place] [place], [address] [place] [address] Melo Huertas M.D., Ph.D., Director of Laboratories , [facility] [id number] 12/12/2024 11:4 2 AM CORRESPONDENCE REVIEW CLERK Nhung Seo MD LABORATORY Final Result [facility] [address] [place], [place] , * URIC ACID BLOOD (12/12/2024 11:42 AM CORRESPONDENCE REVIEW CLERK) URIC ACID 5.7 3.5 - 7.2 MG/DL 12/12/2024 12:26 PM CORRESPONDENCE REVIEW CLERK [facility] 12/12/2024 11:4 2 AM CORRESPONDENCE REVIEW CLERK us Nhung Seo MD LABORATORY Final Result Performing Organization Address [facility] Co de Phone Number [facility] [address] [place] [address], [place] [phone] * BLOOD SMEAR INTERPRETATION BY (12/12/2024 2:57 AM CORRESPONDENCE REVIEW CLERK) CBC PATHOLOGIST COMMENT SENT TO PATHOLOGIST FOR REVIEW 12/12/2024 11:17 AM CORRESPONDENCE REVIEW CLERK [facility] 12/12/2024 2:57 AM CORRESPONDENCE REVIEW CLERK Nhung Seo MD LABORATORY Final Result Performing Organization Address [facility] Co de Phone Number [facility] [address] [place] [address], [place] [phone] * CK (CPK) - Weekly starting tomorrow (12/12/2024 2:57 AM CORRESPONDENCE REVIEW CLERK) CPK 54 39 - 308 U/L 12/12/2024 3:35 AM CORRESPONDENCE REVIEW CLERK [facility] 12/12/2024 2:57 AM CORRESPONDENCE REVIEW CLERK Tawana Barker NP LABORATORY Final Result Performing Organization Address City/[facility] Co de Phone Number [facility] [address] [place] [address], [place] [phone] * XR BONE SURVEY COMPLETE (12/11/2024 12:12 PM CORRESPONDENCE REVIEW CLERK) Anatomical Region Laterality Modality Bone Radiographic Modesta ging 12/11/2024 10:2 4 PM CORRESPONDENCE REVIEW CLERK Impressions 12/11/2024 10:37 PM CORRESPONDENCE REVIEW CLERK IMPRESSION: 1. Scattered lucencies seen in the kianna, some of which may correspond to the known lytic lesions in the right ilium. 2. Approximately 4 cm lucency in the right proximal humeral diaphysis with additional approximately 9 mm lucency in the distal right humeral diaphysis and questionable ill-defined lucencies in the left humeral diaphysis as above. 3. Further evaluation with multiple myeloma workup, CT chest, abdomen, pelvis to evaluate for primary neoplasm, or whole body bone scan is recommended. If further evaluation of any of these lesions is clinically warranted, dedicated MRI with and without intravenous contrast could be obtained. Referred By: MINA YOU Interpreted By: Zeke Calzada DO, 12/11/2024 10:24 PM Narrative 12/11/2024 10:37 PM CORRESPONDENCE REVIEW CLERK [address] [address] Examination: XR BONE SURVEY COMPLETE Exam time: [...] calvarial lesion is seen. There is scattered dental amalgam. Suboptimal positioning on the lateral view degrades evaluation of the cervical spine. The lower cervical spine and cervicothoracic junction are also partially obscured on the lateral view due to overlying anatomy. No destructive osseous lesion is seen in the cervical spine. There is multilevel facet joint osteoarthritis. Carotid atherosclerotic calcifications are noted. There is cardiomegaly, appearing similar to the prior examination. Pulmonary vasculature is appropriately distributed. The lungs are clear of active opacities. No sizable pleural effusion or pneumothorax is seen. There is elevation of the left hemidiaphragm appearing similar to the prior examination. Old, healed right fourth through ninth rib fractures are noted. No discrete destructive osseous lesion is seen. Multilevel degenerative disc disease affects the thoracic spine. No discrete destructive osseous lesion is seen in the thoracic spine. Multilevel degenerative disc disease affects the lumbar spine, greatest at L5- S1. Multilevel facet joint osteophytes arthritis affects the lumbar spine, greatest in the lower lumbar spine. No destructive osseous lesion is seen in the lumbar spine. The sacrum and coccyx are largely obscured due to contrast in the distal colon and rectum. Note is made of colonic diverticulosis. Scattered lucencies are noted within both kianna, some of which may correspond to the known lytic lesions in the right ilium. Atherosclerotic calcifications are noted. No destructive osseous lesion is seen in either femur. Atherosclerotic calcifications are noted in both sides. No destructive osseous lesion is seen in either tibia or fibula. There is an approximately 4 cm lucency within the medial aspect of the proximal right humeral diaphysis without overlying cortical thinning. An additional approximately 9 mm lucency is noted in the distal right humeral diaphysis. Suture anchors are noted in the left humeral head reflecting prior rotator cuff repair. There is a questionable approximately 7 mm lucency in the mid left humeral diaphysis as well as a questionable 12 mm lucency in the proximal left humeral diaphysis. No destructive osseous lesion is seen in either forearm. Orthopedic hardware affixes presumed healed right radial and ulnar diaphyseal fractures. Procedure Note Zeke Calzada, - 12/11/[address] [address] Examination: XR BONE SURVEY COMPLETE Exam time: [...] By: Zeke Calzada DO, 12/11/2024 10:24 PM Donn Hoffman MD GENERAL IMAGING Final Result * (ABNORMAL) KAPPA LAMBDA FREE RATIO (QST) (12/11/2024 8:44 AM CORRESPONDENCE REVIEW CLERK) KAPPA FREE LIGHT CHAIN 83.0(H) 3.3 - 19.4 mg/L 12/13/2024 11:02 AM CORRESPONDENCE REVIEW CLERK [employer] LAMBDA FREE LIGHT CHAIN 47.9(H) 5.7 - 26.3 mg/L 12/13/2024 11:02 AM CORRESPONDENCE REVIEW CLERK [employer] L[facility] KAPPA/LAMBDA FREE 1.73(H) 0.26 - 1.65 12/13/2024 11:02 AM CORRESPONDENCE REVIEW CLERK [facility] Comment: Free kappa/lambda ratio in serum [...] therapy of these disorders. Test Performed by [employer], [employer] [place] [place], [address] [place] [address] Melo Huertas M.D., Ph.D., Director of Laboratories , [facility] [id number] 12/11/2024 8:44 AM CORRESPONDENCE REVIEW CLERK us Donn Hoffman MD LABORATORY Final Result [facility] [employer] [facility] [address] [place] [address], [place] [phone] * IMMUNOFIXATION (12/11/2024 8:44 AM CORRESPONDENCE REVIEW CLERK) Pathologist [facility] IMMUNOFIXATION SERUM SEE PATHOLOGIST'S INTERPRETATION 12/12/2024 11:59 AM CORRESPONDENCE REVIEW CLERK [facility] IMMUNOFIX (SERUM) INTERPRETATION THIS SERUM IMMUNOTYPING WAS INTERPRETED BY 12/13/2024 9:32 AM CORRESPONDENCE REVIEW CLERK [facility] Comment: DR GABI PINA MD MONOCLONAL PROTEIN NOT IDENTIFIED 12/11/2024 8:44 AM CORRESPONDENCE REVIEW CLERK Donn Hoffman MD LABORATORY Final Result Performing Organization Address [facility] Co de Phone Number [facility] [address] [place] [address], [place] [phone] * (ABNORMAL) PROTEIN, ELECTROPHORESIS (12/11/2024 8:44 AM CORRESPONDENCE REVIEW CLERK) [facility] TOTAL PROTEIN (ELECTROPHORESIS SERUM) 6.5 6.0 - 8.3 G/DL 12/12/2024 11:58 AM CORRESPONDENCE REVIEW CLERK [facility] ALBUMIN ELECTROPHORESIS S/P/B 3.0(L) 3.4 - 4.9 G/DL 12/12/2024 11:57 AM CORRESPONDENCE REVIEW CLERK [facility] [id number] S/P/B 0.3 0.2 - 0.4 G/DL 12/12/2024 11:57 AM CORRESPONDENCE REVIEW CLERK [facility] [id number] S/P/B 0.9 0.4 - 1.0 G/DL 12/12/2024 11:57 AM CORRESPONDENCE REVIEW CLERK [facility] BETA GLOBULIN S/P/B 1.1 0.5 - 1.2 G/DL 12/12/2024 11:57 AM CORRESPONDENCE REVIEW CLERK [facility] GAMMA GLOBULIN S/P/B 1.2 0.6 - 1.6 G/DL 12/12/2024 11:57 AM CORRESPONDENCE REVIEW CLERK [facility] ELECTROPHORESIS INTERPRETATION THIS SERUM PEP WAS INTERPRETED BY 12/13/2024 9:32 AM CORRESPONDENCE REVIEW CLERK [facility] Comment: DR GABI PINA MD THE TOTAL SERUM PROTEIN IS NORMAL. ELECTROPHORESIS IDENTIFIES DECREASED ALBUMIN WITH NO ADDITIONAL QUANTITATIVE ABNORMALITIES. MONOCLONAL PROTEINS ARE NOT DETECTED. 12/11/2024 8:44 AM CORRESPONDENCE REVIEW CLERK Donn Hoffman MD LABORATORY Final Result Performing Organization Address [facility] Co de Phone Number [facility] [address] [place] [address], [phone] * Vancomycin Random Level (12/10/2024 10:03 AM CORRESPONDENCE REVIEW CLERK) Only the most recent of4 resultswithin the time period is included. VANCOMYCIN RANDOM 17.3 MCG/ML 12/10/2024 10:47 AM CORRESPONDENCE REVIEW CLERK [facility] Comment:REFERENCE RANGE NOT ESTABLISHED 12/10/2024 10:0 3 AM CORRESPONDENCE REVIEW CLERK Jesu Duval MD LABORATORY Final Result Performing Organization Address [facility] Co de Phone Number [facility] [address] [place] [address], [phone] * CT HIP RT WO CON (12/09/2024 12:15 PM CORRESPONDENCE REVIEW CLERK) Anatomical Region Laterality Modality Hip Computed Tomogra phy 12/09/2024 2:13 PM CORRESPONDENCE REVIEW CLERK Impressions 12/09/2024 2:20 PM CORRESPONDENCE REVIEW CLERK IMPRESSION: 1. No CT evidence of a right hip joint effusion. 2. Bone scan follow-up recommended for subtle, multifocal bone lucencies. Referred By: MINA YOU Interpreted By: Bryan Vences MD, 12/09/2024 2:13 PM Narrative 12/09/2024 2:20 PM CORRESPONDENCE REVIEW CLERK [address] [address] EXAM: CT HIP RT WO CON DATE: [...] right hip joint effusion demonstrated with CT. Ultrasound would be required to identify any potential fluid large enough for aspiration. Normal alignment of the right hip. Mild diffuse joint space reduction consistent with osteoarthritis. There is a focal lucency in the anterior right ilium. This measures about 1.6 cm. Partial destruction of the medial cortex. Additionally, there are subtle foci of decreased density in other bones. Recommend bone scan correlation. Procedure Note Bryan Vences MD - 12/09/[address] [address] EXAM: CT HIP RT WO CON DATE: [...] (ABNORMAL) PRO-BRAIN NATRIURETIC PEPTIDE (12/07/2024 6:21 AM CORRESPONDENCE REVIEW CLERK) Only the most recent of3 resultswithin the time period is included. PRO-B TYPE NATRIURETIC PEPTIDE 16,835(H) <125 PG/ML 12/07/2024 7:02 AM CORRESPONDENCE REVIEW CLERK [facility] Comment: AGE INDEPENDENT: <300 [...] 72% FOR ACUTE CHF. 12/07/2024 6:21 AM CORRESPONDENCE REVIEW CLERK us Jesu Duval MD LABORATORY Final Result [facility] [address] [place] [address], [phone] * ARTERIAL BLOOD GAS (12/07/2024 6:21 AM CORRESPONDENCE REVIEW CLERK) Only the most recent of3 resultswithin the time period is included. PH ARTERIAL 7.44 7.35 - 7.45 12/07/2024 6:32 AM CORRESPONDENCE REVIEW CLERK [facility] PCO2 36.5 35.0 - 45.0 MMHG 12/07/2024 6:32 AM CORRESPONDENCE REVIEW CLERK [facility] PO2 84.4 83.0 - 108.0 MMHG 12/07/2024 6:32 AM CORRESPONDENCE REVIEW CLERK [facility] BICARB ARTERIAL 24.1 22 - 26 MMOL/L 12/07/2024 6:32 AM CORRESPONDENCE REVIEW CLERK [facility] TOTAL CO2 CAPILLARY 25.3 23 - 27 MMOL/L 12/07/2024 6:[address] [facility] BE/BASE EXCESS 0.7 0 - 2 MMOL/L 12/07/2024 6:[address] [facility] O2 Saturation 96 95 - 98 % 12/07/2024 6:[address] [facility] SERGO TEST N/A 12/07/2024 6:[address] [facility] OXYGEN STATUS 2 lt 12/07/2024 6:21 AM CORRESPONDENCE REVIEW CLERK [facility] DRAW SITE ARTERIAL LT RADIAL 12/07/2024 6:[address] [facility] 12/07/2024 6:21 AM CORRESPONDENCE REVIEW CLERK Jesu Duval MD LABORATORY Final Result Performing Organization Address City/State/[facility] Co de Phone Number [facility] [address] [place] [address], [id number] * USE ECHOCARDIOGRAM W CON (12/06/2024 11:32 AM CORRESPONDENCE REVIEW CLERK) Anatomical Region Laterality Modality NA Echocardiogram 12/06/2024 9:40 AM CORRESPONDENCE REVIEW CLERK Narrative 12/06/2024 10:36 PM CORRESPONDENCE REVIEW CLERK Echocardiography Report Pat.Name: TERRI DEVRIES Pat.ID: [id number] .Date: 12/06/2024 Refer.: [id number] KENYATTA ENRIQUEZ EWDPROV EWDPROV Exam Time: 9:40:00 [...] Estimated left ventricular ejection fraction is 35-40%. Moderate global hypokinesis is noted. The right ventricular [...] Mass 2D Value 197 g LV Mass [id number] Value 101 g/m2 RA Volume Atrial Flores [...] 12/06/2024 Echocardiography Report Pat.Name: TERRI DEVRIES Pat.ID: [id number] .Date: 12/06/2024 Refer.: [id number] KENYATTA ENRIQUEZ EWDPROV EWDPROV Exam Time: 9:40:00 [...] Estimated left ventricular ejection fraction is 35-40%. Moderate global hypokinesis is noted. The right ventricular [...] Mass 2D Value 197 g LV Mass [id number] Value 101 g/m2 RA Volume Atrial Flores [...] (ABNORMAL) COMPREHENSIVE METABOLIC PANEL (12/06/2024 1:39 AM CORRESPONDENCE REVIEW CLERK) Only the most recent of3 resultswithin the time period is included. Pathologist [facility] SODIUM S/P/B 146(H) 136 - 145 MMOL/L 12/06/2024 2:[address] [facility] POTASSIUM S/P/B 3.5 3.5 - 5.1 MMOL/L 12/06/2024 2:[address] [facility] CHLORIDE S/P/B 116(H) 97 - 115 MMOL/L 12/06/2024 2:[address] [facility] CO2 26.2 21.0 - 32.0 MMOL/L 12/06/2024 2:[address] [facility] GLUCOSE 90 74 - 106 MG/DL 12/06/2024 2:[address] [facility] BUN 31(H) 7 - 18 MG/DL 12/06/2024 2:[address] [facility] CREATININE S/P/B 2.15(H) 0.70 - 1.30 MG/DL 12/06/2024 2:[address] [facility] CALCIUM S/P/B 8.9 8.5 - 10.1 MG/DL 12/06/2024 2:[address] [facility] BILIRUBIN TOTAL S/P/B 0.7 0.2 - 1.0 MG/DL 12/06/2024 2:[address] [facility] ALKALINE PHOSPHATASE S/P/B 45 45 - 115 U/L 12/06/2024 2:[address] [facility] AST 61(H) 15 - 37 U/L 12/06/2024 2:[address] [facility] ALT 62(H) 16 - 61 U/L 12/06/2024 2:[address] [facility] TOTAL PROTEIN S/P/B 6.4 6.4 - 8.2 G/DL 12/06/2024 2:[address] [facility] ALBUMIN S/P/B 2.3(L) 3.4 - 5.0 G/DL 12/06/2024 2:[address] [facility] ANION GAP 3.8 2.0 - 10.0 MMOL/L 12/06/2024 2:50 AM CORRESPONDENCE REVIEW CLERK [facility] OSMOLALITY (CALC) 308 MOSM/KG 025 2:50 AM CORRESPONDENCE REVIEW CLERK [facility] Comment:REFERENCE RANGE NOT ESTABLISHED GFR ESTIMATE 33(L) >90 ML/MIN/1. 73 M2 12/06/2024 2:50 AM CORRESPONDENCE REVIEW CLERK [facility] GFR NOTES GFR REFERENCE S: 12/06/2024 2:50 AM CORRESPONDENCE REVIEW CLERK [facility] Comment: THE ESTIMATED GFR IS [...] FAILURE: <15 ml/min/1.73 m2 12/06/2024 1:39 AM CORRESPONDENCE REVIEW CLERK Jesu Duval MD LABORATORY Final Result [facility] [address] [place] [address], [id number] * XR SPEECH SWALLOW SJS ONLY (12/05/2024 9:43 AM CORRESPONDENCE REVIEW CLERK) Anatomical Region Laterality Modality NA Fluoroscopy 12/05/2024 9:55 AM CORRESPONDENCE REVIEW CLERK Impressions 12/05/2024 9:58 AM CORRESPONDENCE REVIEW CLERK IMPRESSION: 1. Impending aspiration thin liquid barium. 2. Minimal laryngeal penetration nectar barium consistency. Ordered By: JESU DUVAL Interpreted By: Juan Alberto Berg MD, 12/05/2024 9:55 AM Narrative 12/05/2024 9:58 AM CORRESPONDENCE REVIEW CLERK [facility] [address] [place], [place] [address] Examination: XR SPEECH SWALLOW SJS ONLY Exam [...] sinus. No evidence of penetration or aspiration. [place] barium consistency from a cup with a straw demonstrated no evidence of laryngeal penetration or aspiration. With pudding barium consistency from a spoon, there was spillage to the piriform sinus with no evidence of penetration or aspiration. Mild residual within the vallecula. [place] barium consistency from a cup with a straw demonstrated no evidence of penetration or aspiration. [place] barium consistency from an open cup demonstrated larger bolus size with minimal laryngeal penetration which mostly ejected. No evidence of significant stasis. Solid cracker barium consistency appeared unremarkable. [place] barium consistency wash from a cup with a straw demonstrated no evidence of penetration or aspiration. Thin liquid barium from a cup with a straw demonstrated minimal laryngeal penetration without complete ejection consistent with impending aspiration. Thin liquid barium from an open cup demonstrated deep laryngeal penetration without ejection consistent with impending aspiration. Procedure Note Juan Alberto Berg MD - 12/05/2024 [facility] [address] [place], [place] [address] Examination: XR SPEECH SWALLOW SJS ONLY Exam [...] sinus. No evidence of penetration or aspiration. [place] barium consistency from a cup with a straw demonstrated no evidenceof laryngeal penetration or aspiration. With pudding barium consistency from a spoon, there was spillage to thepiriform sinus with no evidence of penetration or aspiration. Mildresidual within the vallecula. [place] barium consistency from a cup with a straw demonstrated no evidenceof penetration or aspiration. [place] barium consistency from an open cupdemonstrated larger bolus size with minimal laryngeal penetration whichmostly ejected. No evidence of significant stasis. Solid cracker barium consistency appeared unremarkable. [place] barium consistency wash from a cup with [...] Juan Alberto Berg MD, 12/05/2024 9:55 AM Jesu Duval MD FLUOROSCOPY Final Result * MAGNESIUM (12/05/2024 1:51 AM CORRESPONDENCE REVIEW CLERK) Only the most recent of4 resultswithin the time period is included. MAGNESIUM 1.7 1.6 - 2.6 MG/DL 12/05/2024 2:13 AM CORRESPONDENCE REVIEW CLERK [facility] 12/05/2024 1:51 AM CORRESPONDENCE REVIEW CLERK Mecca John MD LABORATORY Final Result [facility] [address] [place] [address], [id number] * (ABNORMAL) HEPARIN, ANTI XA, UFH (12/04/2024 5:45 AM CORRESPONDENCE REVIEW CLERK) Only the most recent of2 resultswithin the time period is included. HEPARIN ANTI XA UFH 0.91(H) 0.30 - 0.70 IU/ML 12/04/2024 6:08 AM CORRESPONDENCE REVIEW CLERK [facility] Comment: UFH Therapeutic Anti Xa Ranges: Medical Therapeutic Range: 0.30 - 0.70 IU/mL Cardiac Therapeutic Range: 0.30 - 0.50 IU/mL Neuro Therapeutic Range: 0.20 - 0.40 IU/mL 12/04/2024 5:45 AM CORRESPONDENCE REVIEW CLERK us Mecca John MD LABORATORY Final Result Performing Organization Address [facility] de Phone Number [facility] [address] [place] [address], [place] [phone] * (ABNORMAL) PARTIAL THROMBOPLASTIN TIME,PTT (12/04/2024 5:45 AM CORRESPONDENCE REVIEW CLERK) Only the most recent of9 resultswithin the time period is included. PTT 71.4(H) 25.1 - 36.5 SEC 12/04/2024 6:16 AM CORRESPONDENCE REVIEW CLERK [facility] 12/04/2024 5:45 AM CORRESPONDENCE REVIEW CLERK us Mecca John MD LABORATORY Final Result Performing Organization Address [facility] Co de Phone Number [facility] [address] [place] [address], [place] [phone] * PROCALCITONIN (PCT) (12/02/2024 11:33 PM CORRESPONDENCE REVIEW CLERK) Procalcitonin 0.06 0.00 - 0.49 NG/ML 12/03/2024 10:23 AM CORRESPONDENCE REVIEW CLERK [facility] 12/02/2024 11:3 3 PM CORRESPONDENCE REVIEW CLERK Carlee Martin MD LABORATORY Final Result Performing Organization Address [facility] Co de Phone Number [facility] [address] [place] [address], [id number] * LACTIC ACID (12/02/2024 11:33 PM CORRESPONDENCE REVIEW CLERK) Only the most recent of4 resultswithin the time period is included. LACTIC ACID VENOUS 1.8 0.4 - 2.0 MMOL/L 12/03/2024 12:01 AM CORRESPONDENCE REVIEW CLERK [facility] 12/02/2024 11:3 3 PM CORRESPONDENCE REVIEW CLERK Carlee Martin MD LABORATORY Final Result Performing Organization Address [facility] de Phone Number [facility] [address] [place] [address], [phone] * CULTURE, BACTERIA BLOOD X2 (12/02/2024 6:57 PM CORRESPONDENCE REVIEW CLERK) SPEC DESCRIPTION BLOOD 12/02/19 7:02 PM CORRESPONDENCE REVIEW CLERK [facility] SPECIAL REQUESTS BLOOD-AERO BIC BOTTLE ONLY 12/02/2024 7:02 PM CORRESPONDENCE REVIEW CLERK [facility] CULTURE RESULT NO GROWTH 5 DAYS 12/07/2024 9:25 PM CORRESPONDENCE REVIEW CLERK [facility] BLOOD SPECIMEN OBTAINED FOR BLOOD CULTURE / Unknown 12/02/2024 6:57 PM CORRESPONDENCE REVIEW CLERK 12/02/2024 7:02 PM CORRESPONDENCE REVIEW CLERK Carlos Paz MD MICROBIOLOGY - GENE RAL ORDERABLES Final Result Performing Organization Address [facility] Co de Phone Number [facility] [address] [place] [address], [phone] * (ABNORMAL) C-REACTIVE PROTEIN (12/02/2024 1:17 AM CORRESPONDENCE REVIEW CLERK) Only the most recent of3 resultswithin the time period is included. Pathologist [facility] C-REACTIVE PROTEIN 9.81(H) <0.80 mg/dL 12/02/2024 2:38 AM CORRESPONDENCE REVIEW CLERK [facility] 12/02/2024 1:17 AM CORRESPONDENCE REVIEW CLERK Gail Savage MD LABORATORY Final Resul t Performing Organization Address [facility] Co de Phone Number [facility] [address] [place] [address], [phone] * (ABNORMAL) Blood gas, venous (12/01/2024 4:58 AM CORRESPONDENCE REVIEW CLERK) Pathologist [facility] PH VENOUS 7.32 7.32 - 7.42 12/01/2024 5:[address] [facility] PCO2 VENOUS 46.9 41.0 - 51.0 MMHG 12/01/2024 5:[address] [facility] PO2 VENOUS 36.2 25.0 - 40.0 MM HG 12/01/2024 5:[address] [facility] BICARB VENOUS 23.6(L) 24 - 28 MMOL/L 12/01/2024 5:[address] [facility] TOTAL CO2 VENOUS 25.1 25.0 - 29.0 MMOL/L 12/01/2024 5:[address] [facility] BASE DEFICIT VENOUS 2.1 0.0 - 3.0 MMOL/L 12/01/2024 5:[address] [facility] O2 SAT VENOUS 59 <75 % 12/01/2024 5:[address] [facility] 12/01/2024 4:58 AM CORRESPONDENCE REVIEW CLERK Carlee Martin MD LABORATORY Final Result Performing Organization Address [facility] Co de Phone Number [facility] [address] [place] [address], [phone] * PHOSPHORUS, INORGANIC PHOSPHATE (12/01/2024 4:58 AM CORRESPONDENCE REVIEW CLERK) PHOSPHORUS 3.8 2.5 - 4.9 MG/DL 12/01/2024 5:38 AM CORRESPONDENCE REVIEW CLERK [facility] 12/01/2024 4:58 AM CORRESPONDENCE REVIEW CLERK Carlee Martin MD LABORATORY Final Result [facility] [address] [place] [address], [place] [phone] * CT HEAD WO CON (11/30/2024 11:05 PM CORRESPONDENCE REVIEW CLERK) Anatomical Region Laterality Modality Head Computed Tomogra phy 11/30/2024 11:4 0 PM CORRESPONDENCE REVIEW CLERK Impressions 11/30/2024 11:45 PM CORRESPONDENCE REVIEW CLERK IMPRESSION: 1. Asymmetry of the partially included parotid glands with left larger than right with no discrete mass in the partially imaged parotid glands ; please correlate clinically for etiology and significance. 2. No acute intracranial abnormality. 3. Stable generalized atrophy with mild nonspecific chronic periventricular and deep cerebral white matter vascular disease in bilateral cerebral hemispheres. 4. Intracranial atherosclerotic vascular calcifications. 5. Stable partially empty sella, developmental variant, related to atrophy, or less likely intracranial hypertension. Please correlate clinically. This CT exam was performed using one or more of the following dose reduction techniques: automated exposure control, adjustment of the mA and/or kV according to patient size, and/or use of iterative reconstruction technique. Referred By: MINA YOU Interpreted By: Ana Hackett MD, 11/30/2024 11:40 PM Narrative 11/30/2024 11:45 PM CORRESPONDENCE REVIEW CLERK [facility] [address] [place], [place] [address] EXAMINATION: CT Head without Contrast, Axial Imaging with 2-D Coronal and Sagittal Reconstruction. INDICATION: Evaluate for stroke. Confusion. COMPARISON: CT head without contrast 07/11/2024.. FINDINGS: No mass, midline shift, intracranial hemorrhage, areas of acute macrovascular ischemia, or acute osseous abnormality. Stable generalized atrophy, somewhat prominent for patient's age. Stable partially empty sella. No extra-axial fluid collections. Stable generalized prominence of the ventricles and sulci related to atrophy and volume loss. Mild nonspecific patchy hypodensity in the periventricular and deep cerebral white matter in bilateral cerebral hemispheric cerebral edema or mass effect, likely nonspecific chronic white matter microvascular disease. Atherosclerotic calcifications in bilateral intracranial vertebral arteries near the skull base as well as in the distal intracranial internal carotid arteries. Slight pneumatization of right middle turbinate. Mild chronic mucosal thickening in bilateral maxillary sinuses. No other significant paranasal sinus or mastoid air cell disease. Stable postoperative changes of bilateral lens replacement surgery in the orbits. Incidental finding of asymmetry of the included parotid glands with left larger than right, of uncertain etiology and significance. Procedure Note Ana Hackett MD - 11/30/2024 [place] [address] EXAMINATION: CT Head without Contrast, Axial Imaging [...] By: Ana Hackett MD, 11/30/2024 11:40 PM Blu Savage MD CT Final Result * (ABNORMAL) VITAMIN B1 THIAMINE (PLASMA) (11/30/2024 4:39 PM CORRESPONDENCE REVIEW CLERK) Pathologist [facility] VITAMIN B1 S/P/B 64(H) 8 - 30 nmol/L 12/07/2024 1:43 PM CORRESPONDENCE REVIEW CLERK [facility] Comment: Vitamin supplementation within 24 hours prior to blood draw may affect the accuracy of the results. This test was developed and its analytical performance characteristics have been determined by [facility] [place], [place]. It has not been cleared or approved by the U.S. Food and Drug Administration. This assay has been validated pursuant to the CLIA regulations and is used for clinical purposes. Test Performed by [facility] [employer], [facility] [place], [address] [place] [address] Melo Huertas M.D., Ph.D., Director of Laboratories , CLIA [id number] 11/30/2024 4:39 PM CORRESPONDENCE REVIEW CLERK Tawana Bell NP LABORATORY Final Result [facility] [address], [place] [phone] * THYROID STIM HORMONE, TSH (11/30/2024 4:39 PM CORRESPONDENCE REVIEW CLERK) TSH 3.560 0.358 - 3.740 uIU/ML 11/30/2024 5:31 PM CORRESPONDENCE REVIEW CLERK [facility] Comment: ASSAY PERFORMED BY CHEMILUMINESCENCE METHODOLOGY USING [employer] [place] [employer]. PATIENT RESULTS DETERMINED BY ASSAYS USING DIFFERENT MANUFACTURERS FOR METHODS MAY NOT BE COMPARABLE. 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
--- OUTSIDE RECORDS SUMMARY | 2024-12-28 15:10 | XMS_ITS | Data Portability ---
Author Organization [facility] [place], Main Office Address [address] [place] [id number] Care Team Providers Care Stand In Name Role Phone GRIFFIN FAGAN Primary Care Provider [phone] GRIFFIN FAGAN Referring Provider Assessment Encounter Date Assessment Date Assessment LastModified by Organization Details LastModified Time 12/08/2015 12/08/2015 1. GAIT IMBALANC E (LIKELY SENSORY ATAXIA DUE TO NEUROPATHY) MRI Brain (Hx CHI 06/04) EMG/NCS Further plans for testing and treatment will be considered after review of MRI and EMG twierzbicki Not available 12/08/2015 14:14:14 12/31/2015 12/31/2015 1. PERIPHERAL NEUROPATHY Serologic testing ordered RTC in 3 months 2. PROBABLE BPPV Vestibular rehab scheduled 3. GAIT IMBALANCE DUE TO #1/2 Will consider gait PT if not improved following vestibular rehab. 4. ISCHEMIC STROKE (CHRONIC RIGHT F-P; HX A-FIB) Continue Eloquis twierzbicki Not available 12/31/2015 13:20:39 04/13/2016 04/13/2016 1. PERIPHERAL NEUROPATHY (DM-2) Serologic testing (P) RTC in 3 months 2. PROBABLE BPPV Vestibular rehab RE-scheduled 3. GAIT IMBALANCE DUE TO #1/2 Will consider gait PT if not improved following vestibular rehab. 4. ISCHEMIC STROKE (CHRONIC RIGHT F-P; HX A-FIB) Continue Eloquis twierzbicki Not available 04/13/2016 14:12:36 08/06/2016 08/06/2016 1. PERIPHERAL NEUROPATHY (DM-2) Diabetic diet Daily walking recommended 2. PROBABLE BPPV Continue home vestibular exercises 3. MULTIFACTORIAL GAIT IMBALANCE (#1/2 ABOVE, PRIOR STROKE, UNGER) Daily walking upon resolution of pulmonary issue 4. ISCHEMIC STROKE (CHRONIC RIGHT F-P; HX A-FIB) Eloquis per Dr. Jay mckinnon Not available 08/06/2016 13:51:30 Plan of Treatment Reminders Order Date Submit Date Provider Last Modified By Organization Details Last Modified Time Details Appointments None recorded . Lab HILL (antinuc lear antibodi es) screen, serum 2015 016 [facility], [address], [address], [place], [address], 6 10:12:57 protein electrop horesis, 24-hr urine 2015 016 [facility], [address], [address], [place], [address], 6 10:12:57 rf (rheumat oid factor), titer, serum 2015 016 [facility], [address], [address], [place], [address], 6 10:12:57 CK (creatin e kinase) mb/CK total, ratio, serum (OBS) 2015 016 [facility], [address], [address], [place], [address], 6 10:12:57 vitamin B1 (thiamin e), serum 2015 016 [facility], [address], [address], [place], [address], 6 10:12:57 vitamin B6 (pyridox ine), plasma 2015 016 [facility], [address], [address], [place], [address], 6 10:12:58 CMP, serum or plasma 2015 016 [place] [address] [facility], [address], [address], [place], [address], 6 10:12:58 CBC 2015 016 [place] [address] [facility], [address], [address], [place], [address], 6 10:12:58 HbA1c (hemoglo bin A1c), blood 2015 016 [place] [address] [facility], [address], [address], [place], [address], 6 10:12:58 vitamin B12 + folate, serum or blood 2015 016 [place] [address] [facility], [address], [address], [place], [address], 6 10:12:58 Referral vestibul ar therapy referral - Likely BPPV 2015 016 [facility], [address], [address], [place], [address], 6 12:41:29 vestibul ar therapy referral - Likely BPPV (Please re-sched ule) [address] [facility], [address], [address], [place], [address], 6 15:34:28 Procedures None recorded . Surgeries None recorded . Imaging electrom danielle/clemente oliva on study 2015 Carly Moreno MD, [address], [place], [address], 6 09:44:16 MRI, brain 2015 016 [email or web address] [place] [facility] [address], [place], [address], 6 09:19:50 electrom yogram/n juanlynsey waitei on study 2015 016 ángela Moreno MD, [address], [place], [address], 6 14:25:32 Medication Orders None recorded . Patient TargetsNo targets recorded. Patient Instructions Encounter Date Encounter Id Patient Instructions Last Modified By Organization Details Last Modified Time 12/08/2015 [id number] learning about a closed head injury Not available 12/09/2015 09:20:23 12/31/2015 [id number] learning about a closed head injury Not available 01/01/2016 11:30:04 learning about a n ischemic stroke Not available 01/01/2016 11:30:04 04/13/2016 [id number] learning about a closed head injury Not available 04/13/2016 15:24:44 learning about a n ischemic stroke Not available 04/13/2016 15:24:43 08/06/2016 [id number] learning about a n ischemic stroke Not available 08/09/2016 21:17:59 Reason for Referral Vestibular Therapy Referral for Vertigo Likely BPPV Referring Physician: Mateo Mroeno, Neurology, Encounter Date: 12/31/2015 Vestibular Therapy Referral for Vertigo Likely BPPV (Please re-schedule) Referring Physician: Mateo Moreno, Neurology, Encounter Date: 04/13/2016 Results Created Date Observation Date Name Description Value Unit Range Abnormal Flag Note LastModifiedBy Organization Detail LastModifiedTime 12/31/19 16 12/31/2015 elect romyo gram/ nerve condu ction study EMG normal normal Not Available Mateo Moreno MD [address], [place], [address], 12/31/2015 12:57:22 12/31/19 16 12/31/2015 elect romyo gram/ nerve condu ction study Nerve Conduction Study 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 Not Available Mateo Moreno MD [address], [place], [address], 12/31/2015 12:57:22 12/08/19 16 12/09/2015 elect romyo gram/ nerve condu ction study EMG Not Available Mateo Moreno MD [address], [place], [address], 12/08/2015 14:13:17 12/08/19 16 12/09/2015 elect romyo gram/ nerve condu ction study Nerve Conduction Study Not Available Caren Moreno MD [address], [place], [address], 12/08/2015 14:13:17 04/09/20 16 04/14/2016 CMP, serum or plasm a glucose 113 mg/dL 65-99 high Fasti ng refer ence inter teresa Not Available [facility] [place] [facility] [address], [place], [address], 04/14/2016 15:28:14 04/09/20 16 04/14/2016 CMP, serum or plasm a urea nitrogen (BUN) 19 mg/dL 7-25 normal Not Available [facility] [place] [facility] [address], [place], [address], 04/14/2016 15:28:14 04/09/20 16 04/14/2016 CMP, serum or plasm a creatinine 1.17 mg/dL 0.70-1 .25 normal For patie nts >49 years of age, the refer ence limit for Creat inine is appro ximat diogenes 13% highe r for peopl e ident ified as Afric an-Am ilan n. Not Available [facility] [place] [facility] [address], [place], [address], 04/14/2016 15:28:14 04/09/20 16 04/14/2016 CMP, serum or plasm a eGFR non-afr. malawian 67 mL/mi n/1.7 3m2 > or = 60 normal Not Available [facility] [address], [place], [address], 04/14/2016 15:28:14 04/09/20 16 04/14/2016 CMP, serum or plasm a eGFR 78 mL/mi n/1.7 3m2 > or = 60 normal Not Available [facility] [address], [place], [address], 04/14/2016 15:28:14 04/09/20 16 04/14/2016 CMP, serum or plasm a BUN/creatini ne ratio NOT APPLIC ABLE (calc ) 6-22 Not Available [facility] [address], [place], [address], 04/14/2016 15:28:14 04/09/20 16 04/14/2016 CMP, serum or plasm a sodium 138 mmol/ L 135-14 6 normal Not Available [facility] [address], [place], [address], 04/14/2016 15:28:14 04/09/20 16 04/14/2016 CMP, serum or plasm a potassium 4.7 mmol/ L 3.5-5. 3 normal Not Available [facility] [address], [place], [address], 04/14/2016 15:28:14 04/09/20 16 04/14/2016 CMP, serum or plasm a chloride 105 mmol/ L 98-110 normal Not Available [facility] [address], [place], [address], 04/14/2016 15:28:14 04/09/20 16 04/14/2016 CMP, serum or plasm a carbon dioxide 26 mmol/ L 19-30 normal Not Available [facility] [address], [place], [address], 04/14/2016 15:28:14 04/09/20 16 04/14/2016 CMP, serum or plasm a calcium 9.5 mg/dL 8.6-10 .3 normal Not Available [facility] [address], [place], [address], 04/14/2016 15:28:14 04/09/20 16 04/14/2016 CMP, serum or plasm a protein, total 7.0 g/dL 6.1-8. 1 normal Not Available [facility] [address], [place], [address], 04/14/2016 15:28:14 04/09/20 16 04/14/2016 CMP, serum or plasm a albumin 3.8 g/dL 3.6-5. 1 normal Not Available [facility] [address], [place], [address], 04/14/2016 15:28:14 04/09/20 16 04/14/2016 CMP, serum or plasm a globulin 3.2 g/dL_ (calc ) 1.9-3. 7 normal Not Available [place] [address], [place], [address], 04/14/2016 15:28:14 04/09/20 16 04/14/2016 CMP, serum or plasm a albumin/glob ulin ratio 1.2 (calc ) 1.0-2. 5 normal Not Available [facility] [address], [place], [address], 04/14/2016 15:28:14 04/09/20 16 04/14/2016 CMP, serum or plasm a bilirubin, total 0.7 mg/dL 0.2-1. 2 normal Not Available [facility] [place] [address], [place], [address], 04/14/2016 15:28:14 04/09/20 16 04/14/2016 CMP, serum or plasm a alkaline phosphatase 62 U/L 40-115 normal Not Available [facility] [place] [facility] [address], [place], [address], 04/14/2016 15:28:14 04/09/20 16 04/14/2016 CMP, serum or plasm a AST 39 U/L 10-35 high Not Available [facility] [place] [facility] [address], [place], [address], 04/14/2016 15:28:14 04/09/20 16 04/14/2016 HbA1c (hemo globi n A1c), blood hemoglobin A1C 6.4 %_of_ total _HGB <5.7 high Accor ding to ADA guide lines , hemog lobin A1c <7.0% repre sents optim al contr ol in non-p regna nt diabe tic patie nts. Diffe rent metri cs may apply to speci fic patie nt herberul jenny s. [facility] of Medic al Care in Diabe nacho-2 013. Diabe nacho Care. 2013; 36:s1 1-s66 For the purpo se of demi hernadez for the prese nce of diabe nacho <5.7% Consi stent with the absen ce of diabe nacho 5.7-6 .4% Consi stent with incre ased risk for diabe nacho (pred iabet es) >or=6 .5% Consi stent with diabe nacho This assay resul t is consi stent with a highe r risk of diabe nacho. Curre ntly, no conse nsus exist s for use of hemog lobin A1c for diagn osis of diabe nacho for child geovanny. Not Available [facility] [place] [facility] [address], [place], [address], 04/14/2016 15:28:15 04/09/20 16 04/14/2016 CK (crea mynor kinas e), total , serum creatine kinase, total 128 U/L 44-196 normal Not Available [facility] [address], [place], [address], 04/14/2016 15:28:15 04/09/20 16 04/14/2016 vitam in B1 (thia mine) , blood vitamin B1 (thiamine), blood, lc/MS/MS 116 nmol/ L 78-185 Not Available [facility] [address], [place], [address], 04/14/2016 15:28:15 04/09/20 16 04/14/2016 vitam in B6 (pyri doxin e), plasm a vitamin B6 10.3 NG/mL 2.1-21 .7 Not Available [facility] [address], [place], [address], 04/14/2016 15:28:16 04/09/20 16 04/14/2016 CBC white blood cell count 6.1 thous and/u L 3.8-10 .8 normal Not Available [facility] [address], [place], [address], 04/14/2016 15:28:16 04/09/20 16 04/14/2016 CBC red blood cell count 4.38 caroline on/uL 4.20-5 .80 normal Not Available [facility] [address], [place], [address], 04/14/2016 15:28:16 04/09/20 16 04/14/2016 CBC hemoglobin 14.5 g/dL 13.2-1 7.1 normal Not Available [facility] [address], [place], [address], 04/14/2016 15:28:16 04/09/20 16 04/14/2016 CBC hematocrit 44.6 % 38.5-5 0.0 normal Not Available [facility] [place] [facility] [address], [place], [address], 04/14/2016 15:28:16 04/09/20 16 04/14/2016 CBC MCV 101.8 fL 80.0-1 00.0 high Not Available [facility] [address], [place], [address], 04/14/2016 15:28:16 04/09/20 16 04/14/2016 CBC MCH 33.2 pg 27.0-3 3.0 high Not Available [facility] [address], [place], [address], 04/14/2016 15:28:16 04/09/20 16 04/14/2016 CBC MCHC 32.6 g/dL 32.0-3 6.0 normal Not Available [facility] [address], [place], [address], 04/14/2016 15:28:16 04/09/20 16 04/14/2016 CBC RDW 14.3 % 11.0-1 5.0 normal Not Available [facility] [address], [place], [address], 04/14/2016 15:28:16 04/09/20 16 04/14/2016 CBC platelet count 167 thous and/u L 140-40 0 normal Not Available [facility] [address], [place], [address], 04/14/2016 15:28:16 04/09/20 16 04/14/2016 CBC MPV 8.4 fL 7.5-11 .5 normal Not Available [facility] [address], [place], [address], 04/14/2016 15:28:16 04/09/20 16 04/14/2016 vitam in B12 + folat e, serum or blood vitamin B12 379 pg/mL 200-11 00 normal Pleas e Note: Altho ugh the refer ence range for vitam in B12 is 200-1 100 pg/mL , it has been repor augie that betwe en 5 and 10% of patie nts with value s betwe en 200 and 400 pg/mL may exper ience neuro psych iatri c and hemat ologi c abnor malit ies due to occul t B12 defic iency ; less than 1% of patie nts with value s above 400 pg/mL will have sympt oms. Not Available [facility] [place] [facility] [address], [place], [address], 04/14/2016 15:28:16 04/09/20 16 04/14/2016 vitam in B12 + folat e, serum or blood folate, serum 7.4 NG/mL normal Refer ence Range Low: <3.4 Borde rline : 3.4-5 .4 Lyn l: >5.4 Not Available [facility] [place] [facility] [address], [place], [address], 04/14/2016 15:28:16 04/09/20 16 04/14/2016 HILL (anti nucle ar antib odies ) scree n, serum anachoice(R) screen NEGATI VE negati ve normal A negat claudia ANAch oice( R) indic ates the absen ce of detec table antib odies to compo nent johanna nacho consi sting of dsDNA , Chrom atin, [employer], Sm/RN P, Sm, SSA, SSB, Rose-1, Centr omere B, Scl-7 0 and Ribos omal P. A negat claudia ANAch oice( R) shoul d be inter prete d in the daysi xt of the clini irina and labor atory findi ngs, and does not rule out autoi mmune disea se alberta cteri zed by other autoa ntibo dy speci ficit ies inclu ding autoi mmune hepat itis and prima ry bilia ry cirrh osis. Not Available [facility] [place] [facility] [address], [place], [address], 04/14/2016 15:28:17 04/09/20 16 04/14/2016 rf (rheu matoi d facto r), serum rheumatoid factor 7 IU/mL <14 normal Not Available [facility] [place] [facility] [address], [place], [address], 04/14/2016 15:28:17 04/10/20 16 04/14/2016 prote in elect ropho resis , 24-hr urine creatinine, 24 hour urine 1.71 g/24_ h 0.63-2 .50 normal Not Available [facility] [place] [facility] [address], [place], [address], 04/14/2016 17:59:19 04/10/20 16 04/14/2016 [facility] , [facility] urine protein/crea tinine ratio 1175 mg/g_ creat < or = 84 high Not Available [facility] [place] [facility] [address], [place], [address], 04/14/2016 17:59:19 04/10/20 16 04/14/2016 [facility] , 24-hr urine protein, total, 24 HR ur 2010 mg/24 _h <150 high Not Available [facility] [place] [facility] [address], [place], [address], 04/14/2016 17:59:19 04/10/20 16 04/14/2016 prote in elect [facility] resis , 24-hr urine albumin 77 % Not Available [facility] [place] [facility] [address], [place], [address], 04/14/2016 17:59:19 04/10/20 16 04/14/2016 [facility] , 24-hr urine wrtpt-2-iqco ulins 4 % Not Available [facility] [place] [facility] [address], [place], [address], 04/14/2016 17:59:19 04/10/20 16 04/14/2016 prote in elect [facility] , 24-hr urine cytwh-2-afic ulins 4 % Not Available [facility] [place] [facility] [address], [place], [address], 04/14/2016 17:59:19 04/10/20 16 04/14/2016 prote [facility] , 24-hr urine beta globulins 9 % Not Available [facility] [place] [facility] [address], [place], [address], 04/14/2016 17:59:19 04/10/20 16 04/14/2016 prote in critical [facility] , 24-hr urine gamma globulins 6 % Not Available [facility] [place] [facility] [address], [place], [address], 04/14/2016 17:59:19 04/10/20 16 04/14/2016 prote in critical [facility] hospital , 24-hr urine interpretati on Patte rn consi stent with glome rular prote inuri a. Not Available [facility] [place] [facility] [address], [place], [address], 04/14/2016 17:59:19 01/01/20 16 01/01/2016 elect romyo gram/ nerve condu ction study No observ ation record ed. BARCODE Not Available 2015 09:45:31 Result Notes None recorded. Problems Name Problem SNOMED Code Status Onset Date Resolution Date Notes Provider Name and Address Organization Details Recorded Time Abnormal gait [id number] Fernando Moreno MD [address] [place] [address], [address] , [facility] 6 14:14:19 Closed injury of head [id number] Fernando Moreno MD [address] [place] [address], [address] , [facility] 6 14:14:19 Peripheral nerve disease [id number] Fernando Moreno MD [address] [place], [address] , [facility] [place] 6 14:14:19 Vertigo [id number] Active Mateo Moreno MD [address] [place], [address] , [facility] 6 14:14:19 Ischemic stroke [id number] Active Mateo Moreno MD [address] [place], [address] , [facility] 6 14:14:19 Problem Notes None recorded. Procedures Surgical History None recorded. Imaging Results Imaging Date Name Status LastModified by Organiz ation Details LastModified Time 01/01/2016 electromyogram/ nerve conduction study completed BARCODE Information not available 01/01/2016 09:45:31 Procedure Notes None recorded. Medical Equipment None Reported. Allergies Allergen ID Allergen Name Allergen Category Reaction Reaction Severity Criticality Documentation Date Start Date Code Code System Note Provider Name and Address Organization Details Recorded Time 64538 magnesium medicatio n Not available Not available Not available 12/08/2015 6574 RxNorm Not Available Not Available Not Available Medications Name Sig Start Date Stop Date Status Note LastModified by Organization Details LastModified Time atorvastati n 40 mg tablet Take 1 tablet every day by oral route as directed for 30 days. active Not Available Not Available No t Available amiodarone 200 mg tablet Take 0.5 tablets every day by oral route as directed for 30 days. 08/06 completed Not Available Not Available Not Available hydrocodone 5 mg-acetamin ophen 325 mg tablet active Not Available Not Available No t Available levothyroxi ne 25 mcg tablet Take 1 tablet every day by oral route as directed for 30 days. 08/06 completed Not Available Not Available Not Available amiodarone 400 mg tablet Take 1 tablet twice a day by oral route as directed for 30 days. 08/06 completed Not Available Not Available Not Available levothyroxi ne 50 mcg tablet active Not Available Not Available Not Available cephalexin 500 mg capsule active Not Available Not Available Not Available levothyroxi ne 125 mcg tablet Take 1 tablet every day by oral route as directed for 30 days. active Not Available Not Available No t Available Pacerone 100 mg tablet Take 1 tablet every day by oral route as directed for 30 days. active Not Available Not Available No t Available lactulose 10 gram/15 mL oral solution active Not Available Not Available Not Available Bystolic 10 mg tablet Take 1 tablet twice a day by oral route as directed for 30 days. active Not Available Not Available No t Available Eliquis 5 mg tablet Take 1 tablet twice a day by oral route as directed for 30 days. active Not Available Not Available No t Available Vitals Date Recorded Body mass index (BMI) Heart rate Body weight Body height Systolic blood pressure Diastolic blood pressure Provider Name and Address Organization Details Last Updated DateTime 6 28.3 kg/m2 77 /min 84704.6 9689 g 177.8 cm 136 mm[Hg] 82 mm[Hg] [facility] 6 13:33:50 Date Recorded Body height Body mass index (BMI) Heart rate Body weight Systolic blood pressure Diastolic blood pressure Provider Name and Address Organization Details Last Updated DateTime 6 177.8 cm 27.7 kg/m2 85 /min 90192.3 2741 g 134 mm[Hg] 76 mm[Hg] [facility] 6 12:07:17 Date Recorded Body height Body weight Heart rate Body mass index (BMI) Systolic blood pressure Diastolic blood pressure Provider Name and Address Organization Details Last Updated DateTime 6 177.8 cm 44831.4 0371 g 74 /min 26.3 kg/m2 136 mm[Hg] 80 mm[Hg] [facility] 6 13:21:58 Date Recorded Body height Heart rate Body weight Body mass index (BMI) Systolic blood pressure Diastolic blood pressure Provider Name and Address Organization Details Last Updated DateTime 6 177.8 cm 86 /min 46755.9 6 g 27.1 kg/m2 158 mm[Hg] 84 mm[Hg] [facility] 6 13:06:18 Social History Question Answer Notes LastModified by Organizat ion Details LastModified Time Tobacco Smoking Status Never Smoker Not Available [facility] 09/23/2020 03:28:46 What Is Your Level Of Alcohol Consumption? Heavy [id number] Information not available 09/23/2020 What Is Your Level Of Caffeine Consumption? None [id number] Information not available 09/23/2020 How Much Tobacco Do You Chew? None [id number] Information not available 09/23/2020 What Type Of Diet Are You Following? REGULAR [id number] Information not available 09/23/2020 Which Illicit Or Recreational Drugs Have You Used? No [id number] Information not available 09/23/2020 Family History Of Heart Disease? Yes Information not available 12/01/2015 Which Of Your Hands Is Dominant? Right [id number] Information not available 09/23/2020 High Blood Pressure Yes Information not available 12/01/2015 Live Alone Or With Others? With Others Information not available 12/01/2015 How Much Tobacco Do You Smoke? No [id number] Information not available 09/23/2020 Sex: Unknown Functional Status Question Answer Note LastModified by [employer] ion Details LastModified Time What is your exercise level? Occasional [id number] Information not available 09/23/2020 Mental Status None recorded. Family History Nothing Reported. Medical History Condition Response Coronary Artery Disease N Hyperthyroidism N Head Trauma/Injury N Tremors Y Glaucoma N Depression N Hypothyroidism N Bipolar N Weakness in extremities Y Pacemaker N Injury to eyes N Loss of taste N TIA N Orthopedic Problems N Balance issues N Paralysis N Headaches/Migraines N Blurred vision N Obstructive Sleep Apnea N Injury brain/spine N Anxiety Disorder Y Prostate disease N Autoimmune disease N Dizziness Y Arthritis N COPD/Lung Disease N ADHD/ADD N Congenital Anomalies N Cancer N Stroke N Snoring N Irregular heartbeat Y [place] N Headaches N Fibromyalgia N Concussion N Kidney Disease N Double vision N Chest pain N Parkinson's Disease N Fatigue Y Dementia/Memory Loss N Migraines N Brain Tumors N Bowel/Bladder incontinence Y Mental confusion N PTSD N Multiple Sclerosis N Constipation Y Ringing in ears N Black Outs N Heart Attack ([place]) N Diabetes N Loss of vision N Bleeding Disorder N Change in gait N Seizures/Epilepsy N Facial drooping N Cerebral Palsy N Memory loss Y Insomnia Y Neck Injury/Pain N Difficulty speaking N Asthma N Lupus N Epilepsy/Seizures N Numbness/Tingling Y Aneurysm N Loss of smell N Loss of appetite N Neuropathy N Back Pain/Problems Y Difficulty walking Y Blind spots N Hypertension N Osteoporosis N Difficulty Swallowing (dysphagia) N Past Encounters Encounter ID Performer Location Encounter Start Date Encounter Closed Date Diagnosis/Indication Diagnosis SNOMED-CT Code Diagnosis ICD10 Code Diagnosis Note [id number] Mateo Moreno MD Main Office [address] [place] [address] 12/08/2015 12:23:07 12/08/2015 14:41:29 Abnormal gait 10373257 R26.9 Closed injury of head 45 [id number] 06 S09.90XS Peripheral nerve disease 931904182 G64 [id number] Mateo Moreno MD Main Office [address] [place] [id number] 12/31/2015 11:34:44 12/31/2015 14:25:32 Abnormal gait 53869049 R26.9 Peripheral nerve disease 290665365 G64 E53.8 E11.40 Closed injury of head 45 48227998 06 S09.90XS Vertigo 434371179 R42 Ischemic stroke 16636209 2 I63.9 [id number] Mateo Moreno MD Main Office [address] [place] [id number] 04/13/2016 12:44:27 04/13/2016 14:35:06 Vertigo 644896974 R42 Ischemic stroke 36817761 2 I63.9 Abnormal gait 24936673 R 26.9 Peripheral nerve disease 758293523 G64 E53.8 E11.40 Closed injury of head 45 83061298 06 S09.90XS [id number] Mateo Moreno MD Main Office [address] [place] [id number] 08/06/2016 12:43:06 08/06/2016 14:32:43 Abnormal gait 50185732 R26.9 Peripheral nerve disease 830595295 G64 E53.8 E11.40 Vertigo 798867287 R42 Ischemic stroke 01218715 2 I63.9 Health Concerns Section Related Observation LastModified by Organization Detai ls LastModified Time None Recorded Concern Status LastModified by Organization Details LastModified Time None Recorded Advance Directives Directive None Recorded Payers Encounter Date Sequence Insurance Name Policy Number Policy Diggs Covered Member ID Diggs Member ID Guarantor Name 12/08/2015 1 [facility] [id number] Claudio Devries [id number] Claudio Devries 12/31/2015 1 [facility] [id number] Claudio Devries [id number] Claudio Devries 04/13/2016 1 [facility] [id number] Claudio Devries [id number] Claudio Devries 08/06/2016 1 [facility] [id number] Claudio Devries [id number] Claudio Devries Notes Date Note Type Note Provider Name and Address Organization Details Recorded Time 12/08/2015 text/html Mr. Devries is a 60-year-old male here today for the first time to be assessed neurologically, with a chief complaint of gait imbalance. The patient has had symptoms for approximately 3 years, which upon questioning was initially labeled dizziness as opposed to gait imbalance. It is clear however as I'm discussing his case that he does tend to missapply the term dizziness, describing what appears to be gait imbalance. As an example he states that when he looks up he loses his balance, although again refers to this initially as a sensation of dizziness. He also notices that he loses his balance at night when his lites are off, and does describe no symptomatology when sitting or laying down flat or when turning his head. In total, there does not appear to be any vertiginous symptomatology, and does appear to have a substrate for imbalance as he does have progressive foot numbness and pain spanning at least the past year. His risk for neuropathy appears to be daily drinking, although claims only a 2 beer per day habit. To date he has undergone no direct testing or treatments for his chief complaint. He does have numerous risk factors for dizziness despite the lack of correlate history, including a known history of atherosclerotic heart disease and does have a history of A. fib. He has also had several concussions (3-4), including a recent closed head injury sustained in a fall accident in May of 2015. Outside of the above he does have some vague additional symptomatology that overlays his complaint, including a sensation of fatigue, shortness of breath, and does appear in general to have poor exercise tolerance. This also spans the same length of time of 3 years, and is of unknown significance in lieu of his complaints. Mateo Moreno MD [address] [place] [address], [phone], [facility] 12/08/2015 23:48:15 12/31/2015 text/html Mr. Devries is he re for follow up and planned EMG/NCS of the lower extremities. In the interim between visits, there has been no appreciable changes in his neurologic course. The requested brain MRI was completed yesterday (12/30/15 [facility]), and was reviewed today. 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 He brought an older CT brain image on CD (06/03/15 [facility]) which would not open on our computer, and thusly was not reviewed. Repeat exam today was otherwise unchanged overall. The patient did provide an important update to his history, as he is now admittedly feeling vertiginous when he lies flat as opposed to lying on a pillow. As this now appears to be a potential co-player in his gait imbalance, I will schedule him for vestibular rehab. Mateo Moreno MD [address] [place] [address], [phone], [facility] 01/07/2016 22:47:13 04/13/2016 text/html Mr. Devries is he re for follow up and review of neurologic course. The patient has remained stable overall in terms of his neuropathy-induced gait imbalance and vertigo. The patient admittedly has not started the vestibular rehab, claiming his general forgetfulness lead to failure to schedule. He remains vertiginous, and I will reattempt arranging the therapy again. The blood work ordered for his neuropathy workup was significant for an elevated fasting glucose (113) and HgbA1c (6.4). I forwarded the results to his PCP, and I encouraged him to call her office to receive assistance with this. The patients exam today was otherwise unchanged overall. Mateo Moreno MD [address] [place], [phone], [facility] [place] 04/14/2016 23:06:55 08/06/2016 text/html Mr. Devries is he re for follow up and review of neurologic course. The patient has completed PT for gait imbalance and vestibular rehab. The patient has had complete resolution of in his prior vertigo symptoms, although continues to struggle with his walking. This is due to a number of co-factors, including UNGER (workup in progress), joint pains, as well as imbalance from his neuropathy. His exam today [place] [address] [place] [address], [phone], [facility] [place] [facility] 08/06/2016 13:52:22
[2024-12-28 15:31] LABS: Basophils Absolute Auto 0.01 K/mm3 (0.00-0.10); Basophils Percent Auto 0.2 % (0.0-1.0); Eosinophils Absolute Auto 0.15 K/mm3 (0.02-0.50); Eosinophils Percent Auto 3.4 % (1.0-6.0); Hematocrit 31.5 % (37.0-46.0); Hemoglobin 10.1 g/dL (12.4-15.3); Immature Granulocyte Absolute 0.03 K/mm3 (0.00-0.00); Immature Granulocyte Percent A 0.7 % (0.0-0.0); Lymphocytes Absolute Auto 0.98 K/mm3 (1.10-4.50); Lymphocytes Percent Auto 22.3 % (18.0-42.0); Mean Corpuscular HGB Conc 32.1 g/dL (32-36); Mean Corpuscular Hemoglobin 32.1 pg (27.0-31.0); Mean Platelet Volume 9.1 fl (8.7-11.0); Monocytes Absolute Auto 0.44 K/mm3 (0.10-0.90); Neutrophils Absolute Auto 2.78 K/mm3 (1.70-7.20); Neutrophils Percent Auto 63.4 % (50.0-70.0); Platelet Count Result 225 K/mm3 (150-420); Red Blood Count 3.15 M/mm3 (4.70-6.10); Red Cell Distribution Width 14.1 % (11.6-14.4); White Blood Count 4.4 K/mm3 (4.8-10.8)
[2024-12-28 16:11] LABS: Alanine Aminotransferase 46 U/L (16-63); Albumin Level 2.7 g/dL (3.4-5.0); Alkaline Phosphatase 84 U/L (46-116); Anion Gap 12 mmol/L (4-12); Aspartate Amino Transferase 125 U/L (15-37); Bilirubin,Total 0.4 mg/dL (0.00-1.00); Calcium 8.3 mg/dL (8.5-10.1); Carbon Dioxide 24 mmol/L (21-32); Chloride 103 mmol/L (98-108); Estimated Glomerular Filt Rate 33; Glucose 112 mg/dL (70-99); Potassium 4.6 mmol/L (3.5-5.1); Sodium 139 mmol/L (136-145); Total Protein 6.2 g/dL (6.4-8.2)
[2024-12-28 16:21] LABS: Blood Urea Nitrogen 25 mg/dL (7-18); Osmolality Calculated 293 mOsm/kg (285-295)
[2024-12-28 16:25] LABS: Creatine Kinase 2708 U/L (39-308)
== END 2024-12-28 15:04 | disposition home or self-care (01) ==
PROVIDERS: PCP Family Medicine
DX: G93.41 Metabolic encephalopathy (principal)
CPT/HCPCS: 36415; 80053; 82550; 85025

== ENCOUNTER 2024-12-31 18:38 | Outpatient (CLI) | payer MEDICARE, SELFPAY ==
--- OUTSIDE RECORDS SUMMARY | 2024-12-31 18:43 | XMS_ITS | Encounter Summary ---
Author Organization [facility] Address [facility] [place] [address] Care Team Providers Care Pipeline Controller Name Role Phone Emeka Garcia MD Unavailable [phone] Anne Kendrick MD Primary Care Provider [phone] Viv Seo MD Unavailable Kahlil Peres MD Primary Care Provider [phone] Encounter Details Date Type Department Care Team (Late st Contact Info) Description 01/02/2024 Hospital Follow-up Call [facility] [address] [place] [address] Dipika Moseley, RN Social History Tobacco Use Types Packs/Day Years Used Date Smoking Tobacco: Never Smokeless Tobacco: Never Alcohol Use Standard Drinks/Week Comments Yes 0 (1 standard drink = 0.6 oz pur e alcohol) [facility] Utilities Answer Date Recorded In the past 12 months has e Quack, gas, oil, or water [employer] threatened to shut off services in your [...] place to sleep or slept in a fdc (including now)? No 12/27/2023 Sex and Gender Information Value Date Recorded Sex Assigned at Male 12/04/2024 9:12 AM ADMINISTRATIVE TECH Legal Sex Male 5:48 PM ADMINISTRATIVE TECH Gender Identity Not on file Sexual Orientation [...] Description 03/13/2025 11:00 AM CDT Office Visit [facility] [place] [address] Emeka Garcia MD [address] [place] [address] 05/15/2025 8:[address] [facility] [place] [address] Viv Seo MD [address] [place] [address] 05/20/2025 2:45 PM CDT Office Visit [facility] [place] [id number] Viv Seo MD [address] [place] [address] documented as of this encounter Goals Goal Patient Goal Type Associated Problems Recent Progress Patient-Stated? Author Patient will return to prior living situation and remain independent in ADLs upon discharge from hospital Lifestyle Vicky Moreira RN documented as of this encounter Visit Diagnoses Not on filedocumented in this encounter Care Teams Pipeline Controller Relationship Specialty Start Date End Date Anne Kendrick MD [address] [place] [address] [place] [phone] PCP - General FAMILY PRACTICE 10/05/23 11/29/24 Kahlil Peres MD [address] [place] [address] [phone] PCP - General FAMILY PRACTICE 11/30/24 Emeka Garcia MD [address] [place] [address] [phone] Consulting Physician CLINICAL CARDIAC ELECTROPHYSIOLOGY 03/30/23 Viv Seo MD [address] [place] [address] [phone] Consulting Physician CARDIOVASCULAR DISEASE 05/11/24 documented as of this encounter
--- OUTSIDE RECORDS SUMMARY | 2024-12-31 18:43 | XMS_ITS | Data Portability ---
Author Organization [place] [facility] [place], Main Office Address [address] [place] [id number] Care Team Providers Care Land Sales Agent Name Role Phone GRIFFIN FAGAN Primary Care Provider [phone] GRIFFIN FAGAN Referring Provider Assessment Encounter Date [...] lear antibodi es) screen, serum 2015 016 [facility], [address], [address], [place], [address], 6 10:12:57 protein electrop horesis, 24-hr urine 2015 016 [facility], [address], [address], [place], [address], 6 10:12:57 rf (rheumat oid factor), titer, serum 2015 016 [facility], [address], [address], [place], [address], 6 10:12:57 CK (creatin e kinase) mb/CK total, ratio, serum (OBS) 2015 016 [facility], [address], [address], [place], [address], 6 10:12:57 vitamin B1 (thiamin e), serum 2015 016 [facility], [address], [address], [place], [address], 6 10:12:57 vitamin B6 (pyridox ine), plasma 2015 016 [facility], [address], [address], [place], [address], 6 10:12:58 CMP, serum or plasma 2015 016 [place] [address] [facility], [address], [address], [place], [address], 6 10:12:58 CBC 2015 016 [place] [address] [facility], [address], [address], [place], [address], 6 10:12:58 HbA1c (hemoglo bin A1c), blood 2015 016 [place] [address] [facility], [address], [address], [place], [address], 6 10:12:58 vitamin B12 + folate, serum or blood 2015 016 [place] [address] [facility], [address], [address], [place], [address], 6 10:12:58 Referral vestibul ar therapy referral - Likely BPPV 2015 016 [facility], [address], [address], [place], [address], 6 12:41:29 vestibul ar therapy referral - Likely BPPV (Please re-sched ule) [address] [facility], [address], [address], [place], [address], 6 15:34:28 Procedures None recorded . Surgeries None recorded . Imaging electrom danielle/clemente oliva on study 2015 Carly Moreno MD, [address], [place], [address], 6 09:44:16 MRI, brain 2015 016 [email or web address] [place] [facility] [address], [place], [address], 6 09:19:50 electrom yogram/n juanlynsey waitei on study 2015 016 ángela Moreno MD, [address], [place], [address], 6 14:25:32 Medication Orders None recorded . Patient TargetsNo targets recorded. Patient Instructions Encounter Date Encounter Id Patient Instructions Last Modified By Organization Details Last Modified Time 12/08/2015 [id number] learning about a closed head injury Not available 12/09/2015 09:20:23 12/31/2015 [id number] learning about a closed head injury Not available 01/01/2016 11:30:04 learning about a n ischemic stroke Not available 01/01/2016 11:30:04 04/13/2016 [id number] learning about a closed head injury Not available 04/13/2016 15:24:44 learning about a n ischemic stroke Not available 04/13/2016 15:24:43 08/06/2016 [id number] learning about a n ischemic stroke Not available 08/09/2016 21:17:59 Reason for Referral Vestibular Therapy Referral for Vertigo Likely BPPV Referring Physician: Mateo Moreno, Neurology, Encounter Date: 12/31/2015 Vestibular Therapy Referral for Vertigo Likely BPPV (Please re-schedule) Referring Physician: Mateo Moreno, Neurology, Encounter Date: 04/13/2016 Results Created Date Observation Date Name Description Value Unit Range Abnormal Flag Note LastModifiedBy Organization Detail LastModifiedTime 12/31/19 16 12/31/2015 elect romyo gram/ nerve condu ction study EMG normal normal Not Available Mateo Moreno MD [address], [place], [address], 12/31/2015 12:57:22 12/31/19 16 12/31/2015 elect romyo gram/ nerve condu ction study Nerve Conduction Study 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 Not Available Mateo Moreno MD [address], [place], [address], 12/31/2015 12:57:22 12/08/19 16 12/09/2015 elect romyo gram/ nerve condu ction study EMG Not Available Mateo Moreno MD [address], [place], [address], 12/08/2015 14:13:17 12/08/19 16 12/09/2015 elect romyo gram/ nerve condu ction study Nerve Conduction Study Not Available Caren Moreno MD [address], [place], [address], 12/08/2015 14:13:17 04/09/20 16 04/14/2016 CMP, serum or plasm a glucose 113 mg/dL 65-99 high Fasti ng refer ence inter teresa Not Available [facility] [place] [facility] [address], [place], [address], 04/14/2016 15:28:14 04/09/20 16 04/14/2016 CMP, serum or plasm a urea nitrogen (BUN) 19 mg/dL 7-25 normal Not Available [facility] [place] [facility] [address], [place], [address], 04/14/2016 15:28:14 04/09/20 16 04/14/2016 CMP, serum or plasm a creatinine 1.17 mg/dL 0.70-1 .25 normal For patie nts >49 years of age, the refer ence limit for Creat inine is appro ximat diogenes 13% highe r for peopl e ident ified as Afric an-Am ilan n. Not Available [facility] [place] [address], [place], [address], 04/14/2016 15:28:14 04/09/20 16 04/14/2016 CMP, serum or plasm a eGFR non-afr. eritrean 67 mL/mi n/1.7 3m2 > or = 60 normal Not Available [facility] [address], [place], [address], 04/14/2016 15:28:14 04/09/20 16 04/14/2016 CMP, serum or plasm a eGFR 78 mL/mi n/1.7 3m2 > or = 60 normal Not Available [facility] [address], [place], [address], 04/14/2016 15:28:14 04/09/20 16 04/14/2016 CMP, serum or plasm a BUN/creatini ne ratio NOT APPLIC ABLE (calc ) 6-22 Not Available [facility] [address], [place], [address], 04/14/2016 15:28:14 04/09/20 16 04/14/2016 CMP, serum or plasm a sodium 138 mmol/ L 135-14 6 normal Not Available [facility] [address], [place], [address], 04/14/2016 15:28:14 04/09/20 16 04/14/2016 CMP, serum or plasm a potassium 4.7 mmol/ L 3.5-5. 3 normal Not Available [facility] [address], [place], [address], 04/14/2016 15:28:14 04/09/20 16 04/14/2016 CMP, serum or plasm a chloride 105 mmol/ L 98-110 normal Not Available [facility] [address], [place], [address], 04/14/2016 15:28:14 04/09/20 16 04/14/2016 CMP, serum or plasm a carbon dioxide 26 mmol/ L 19-30 normal Not Available [facility] [address], [place], [address], 04/14/2016 15:28:14 04/09/20 16 04/14/2016 CMP, serum or plasm a calcium 9.5 mg/dL 8.6-10 .3 normal Not Available [facility] [address], [place], [address], 04/14/2016 15:28:14 04/09/20 16 04/14/2016 CMP, serum or plasm a protein, total 7.0 g/dL 6.1-8. 1 normal Not Available [facility] [address], [place], [address], 04/14/2016 15:28:14 04/09/20 16 04/14/2016 CMP, serum or plasm a albumin 3.8 g/dL 3.6-5. 1 normal Not Available [facility] [address], [place], [address], 04/14/2016 15:28:14 04/09/20 16 04/14/2016 CMP, serum or plasm a globulin 3.2 g/dL_ (calc ) 1.9-3. 7 normal Not Available [facility] [address], [place], [address], 04/14/2016 15:28:14 04/09/20 16 04/14/2016 CMP, serum or plasm a albumin/glob ulin ratio 1.2 (calc ) 1.0-2. 5 normal Not Available [facility] [address], [place], [address], 04/14/2016 15:28:14 04/09/20 16 04/14/2016 CMP, serum or plasm a bilirubin, total 0.7 mg/dL 0.2-1. 2 normal Not Available [facility] [place] [facility] [address], [place], [address], 04/14/2016 15:28:14 04/09/20 16 04/14/2016 CMP, serum or plasm a alkaline phosphatase 62 U/L 40-115 normal Not Available [facility] [place] [address], [place], [address], 04/14/2016 15:28:14 04/09/20 16 04/14/2016 CMP, serum or plasm a AST 39 U/L 10-35 high Not Available [facility] [address], [place], [address], 04/14/2016 15:28:14 04/09/20 16 04/14/2016 HbA1c (hemo [...] child geovanny. Not Available [facility] [address], [place], [address], 04/14/2016 15:28:15 04/09/20 16 04/14/2016 CK (crea mynor kinas e), total , serum creatine kinase, total 128 U/L 44-196 normal Not Available [facility] [address], [place], [address], 04/14/2016 15:28:15 04/09/20 16 04/14/2016 vitam in B1 (thia mine) , blood vitamin B1 (thiamine), blood, lc/MS/MS 116 nmol/ L 78-185 Not Available [facility] [address], [place], [address], 04/14/2016 15:28:15 04/09/20 16 04/14/2016 vitam in B6 (pyri doxin e), plasm a vitamin B6 10.3 NG/mL 2.1-21 .7 Not Available [facility] [address], [place], [address], 04/14/2016 15:28:16 04/09/20 16 04/14/2016 CBC white blood cell count 6.1 thous and/u L 3.8-10 .8 normal Not Available [facility] [address], [place], [address], 04/14/2016 15:28:16 04/09/20 16 04/14/2016 CBC red blood cell count 4.38 caroline on/uL 4.20-5 .80 normal Not Available [facility] [address], [place], [address], 04/14/2016 15:28:16 04/09/20 16 04/14/2016 CBC hemoglobin 14.5 g/dL 13.2-1 7.1 normal Not Available [facility] [address], [place], [address], 04/14/2016 15:28:16 04/09/20 16 04/14/2016 CBC hematocrit 44.6 % 38.5-5 0.0 normal Not Available [facility] [place] [facility] [address], [place], [address], 04/14/2016 15:28:16 04/09/20 16 04/14/2016 CBC MCV 101.8 fL 80.0-1 00.0 high Not Available [facility] [address], [place], [address], 04/14/2016 15:28:16 04/09/20 16 04/14/2016 CBC MCH 33.2 pg 27.0-3 3.0 high Not Available [facility] [address], [place], [address], 04/14/2016 15:28:16 04/09/20 16 04/14/2016 CBC MCHC 32.6 g/dL 32.0-3 6.0 normal Not Available [facility] [address], [place], [address], 04/14/2016 15:28:16 04/09/20 16 04/14/2016 CBC RDW 14.3 % 11.0-1 5.0 normal Not Available [facility] [address], [place], [address], 04/14/2016 15:28:16 04/09/20 16 04/14/2016 CBC platelet count 167 thous and/u L 140-40 0 normal Not Available [facility] [address], [place], [address], 04/14/2016 15:28:16 04/09/20 16 04/14/2016 CBC MPV 8.4 fL 7.5-11 .5 normal Not Available [facility] [address], [place], [address], 04/14/2016 15:28:16 04/09/20 16 04/14/2016 vitam in [...] sympt oms. Not Available [facility] [place] [facility] [address], [place], [address], 04/14/2016 15:28:16 04/09/20 16 04/14/2016 vitam in B12 + folat e, serum or blood folate, serum 7.4 NG/mL normal Refer ence Range Low: <3.4 Borde rline : 3.4-5 .4 Lyn l: >5.4 Not Available [facility] [place] [facility] [address], [place], [address], 04/14/2016 15:28:16 04/09/20 16 04/14/2016 HILL (anti nucle ar antib odies ) scree n, serum anachoice(R) screen NEGATI VE negati ve normal A negat claudia ANAch oice( R) indic ates the absen ce of detec table antib odies to compo nent johanna nacho consi sting of dsDNA , Chrom atin, [employer]NAG[employer] INTER[employer]IP, Sm/RN P, Sm, SSA, SSB, Rose-1, Centr [...] cirrh osis. Not Available [facility] [place] [facility] [address], [place], [address], 04/14/2016 15:28:17 04/09/20 16 04/14/2016 rf (rheu matoi d facto r), serum rheumatoid factor 7 IU/mL <14 normal Not Available [facility] [place] [facility] [address], [place], [address], 04/14/2016 15:28:17 04/10/20 16 04/14/2016 prote in elect ropho resis , 24-hr urine creatinine, 24 hour urine 1.71 g/24_ h 0.63-2 .50 normal Not Available [facility] [place] [facility] [address], [place], [address], 04/14/2016 17:59:19 04/10/20 16 04/14/2016 [facility] protein/crea tinine ratio 1175 mg/g_ creat < or = 84 high Not Available [facility] [place] [facility] [address], [place], [address], 04/14/2016 17:59:19 04/10/20 16 04/14/2016 [facility] , 24-hr urine protein, total, 24 HR ur 2010 mg/24 _h <150 high Not Available [facility] [place] [facility] [address], [place], [address], 04/14/2016 17:59:19 04/10/20 16 04/14/2016 prote in elect [facility] resis , 24-hr urine albumin 77 % Not Available [facility] [place] [facility] [address], [place], [address], 04/14/2016 17:59:19 04/10/20 16 04/14/2016 [facility] , 24-hr urine zabfr-9-csyu ulins 4 % Not Available [facility] [place] [facility] [address], [place], [address], 04/14/2016 17:59:19 04/10/20 16 04/14/2016 prote in elect [facility] , 24-hr urine tefgf-4-bits ulins 4 % Not Available [facility] [place] [facility] [address], [place], [address], 04/14/2016 17:59:19 04/10/20 16 04/14/2016 prote in [facility] , 24-hr urine beta globulins 9 % Not Available [facility] [place] [facility] [address], [place], [address], 04/14/2016 17:59:19 04/10/20 16 04/14/2016 prote in [facility] , 24-hr urine gamma globulins 6 % Not Available [facility] [place] [facility] [address], [place], [address], 04/14/2016 17:59:19 04/10/20 16 04/14/2016 prote in [facility] , 24-hr urine interpretati on Patte rn consi stent with glome rular prote inuri a. Not Available [facility] [place] [facility] [address], [place], [address], 04/14/2016 17:59:19 01/01/20 16 01/01/2016 elect romyo gram/ nerve condu ction study No observ ation record ed. BARCODE Not Available 2015 09:45:31 Result Notes None recorded. Problems Name Problem SNOMED Code Status Onset Date Resolution Date Notes Provider Name and Address Organization Details Recorded Time Abnormal gait [id number] Fernando Moreno MD [address] [place] [address], [address] , [facility] 6 14:14:19 Closed injury of head [id number] Fernando Moreno MD [address] [place] [address], [address] , [facility] 6 14:14:19 Peripheral nerve disease 687204613 Fernando Moreno MD [address] [place], [address] , [facility] [place] 6 14:14:19 Vertigo 239934862 Active Mateo Moreno MD [address] [place], [address] , [facility] 6 14:14:19 Ischemic stroke 286083350 Active Mateo Moreno MD [address] [place], [address] , [facility] 6 14:14:19 Problem Notes None recorded. [...] Name and Address Organization Details Recorded Time 27134 magnesium medicatio n Not available Not available [...] Updated DateTime 6 28.3 kg/m2 77 /min 16237.6 9689 g 177.8 cm 136 mm[Hg] 82 mm[Hg] [facility] 6 13:33:50 Date Recorded Body height Body mass index (BMI) Heart rate Body weight Systolic blood pressure Diastolic blood pressure Provider Name and Address Organization Details Last Updated DateTime 6 177.8 cm 27.7 kg/m2 85 /min 63747.3 2741 g 134 mm[Hg] 76 mm[Hg] [facility] 6 12:07:17 Date Recorded Body height Body weight Heart rate Body mass index (BMI) Systolic blood pressure Diastolic blood pressure Provider Name and Address Organization Details Last Updated DateTime 6 177.8 cm 94011.4 0371 g 74 /min 26.3 kg/m2 136 mm[Hg] 80 mm[Hg] [facility] 6 13:21:58 Date Recorded Body height Heart rate Body weight Body mass index (BMI) Systolic blood pressure Diastolic blood pressure Provider Name and Address Organization Details Last Updated DateTime 6 177.8 cm 86 /min 34405.9 6 g 27.1 kg/m2 158 mm[Hg] 84 mm[Hg] [facility] 6 13:06:18 Social History Question Answer Notes LastModified by Organizat ion Details LastModified Time Tobacco Smoking Status Never Smoker Not Available [facility] 09/23/2020 03:28:46 What Is Your Level Of Alcohol Consumption? Heavy [id number] Information not available 09/23/2020 What Is Your Level Of Caffeine Consumption? None [id number] Information not available 09/23/2020 How Much Tobacco Do You Chew? None [id number] Information not available 09/23/2020 What Type Of Diet Are You Following? REGULAR [id number] Information not available 09/23/2020 Which Illicit Or Recreational Drugs Have You Used? No [id number] Information not available 09/23/2020 Family History Of Heart Disease? Yes Information not available 12/01/2015 Which Of Your Hands Is Dominant? Right [id number] Information not available 09/23/2020 High Blood Pressure Yes Information not available 12/01/2015 Live Alone Or With Others? With Others Information not available 12/01/2015 How Much Tobacco Do You Smoke? No [id number] Information not available 09/23/2020 Sex: Unknown Functional Status Question Answer Note LastModified by [facility] Details LastModified Time What is your exercise level? Occasional [id number] Information not available 09/23/2020 Mental Status None recorded. Family History Nothing Reported. Medical History Condition Response Coronary Artery Disease N Hyperthyroidism N Head Trauma/Injury N Tremors Y Depression N Glaucoma N Hypothyroidism N Weakness in extremities Y Bipolar N Pacemaker N Injury to eyes N Loss of taste N TIA N Orthopedic Problems N Balance issues N Paralysis N Headaches/Migraines N Blurred vision N Obstructive Sleep Apnea N Injury brain/spine N Prostate disease N Anxiety Disorder Y Autoimmune disease N Dizziness Y Arthritis N COPD/Lung Disease N ADHD/ADD N Congenital Anomalies N Cancer N Stroke N Snoring N Irregular heartbeat Y [place] N Fibromyalgia N Headaches N Concussion N Kidney Disease N Double vision N Chest pain N Parkinson's Disease N Fatigue Y Dementia/Memory Loss N Migraines N Bowel/Bladder incontinence Y Brain Tumors N Mental confusion N PTSD N Multiple Sclerosis N Constipation Y Ringing in ears N Black Outs N Heart Attack ([place]) N Loss of vision N Diabetes N Bleeding Disorder N Change in gait N Seizures/Epilepsy N Facial drooping N Cerebral Palsy N Memory loss Y Insomnia Y Neck Injury/Pain N Difficulty speaking N Asthma N Lupus N Epilepsy/Seizures N Numbness/Tingling Y Loss of smell N Aneurysm N Loss of appetite N Neuropathy N Difficulty walking Y Blind spots N Back Pain/Problems Y Hypertension N Osteoporosis N Difficulty Swallowing (dysphagia) N Past Encounters Encounter ID Performer Location Encounter Start Date Encounter Closed Date Diagnosis/Indication Diagnosis SNOMED-CT Code Diagnosis ICD10 Code Diagnosis Note [id number] Mateo Moreno MD Main Office [address] [place] [address] 12/08/2015 12:23:07 12/08/2015 14:41:29 Abnormal gait 85444213 R26.9 Closed injury of head 45 33052012 06 S09.90XS Peripheral nerve disease 928204456 G64 [id number] Mateo Moreno MD Main Office [address] [place] [address] 12/31/2015 11:34:44 12/31/2015 14:25:32 Abnormal gait 28374207 R26.9 Peripheral nerve disease 828420077 G64 E53.8 E11.40 Closed injury of head 45 51792803 06 S09.90XS Vertigo 363038140 R42 Ischemic stroke 05456228 2 I63.9 [id number] Mateo Moreno MD Main Office [address] [place] [address] 04/13/2016 12:44:27 04/13/2016 14:35:06 Vertigo 439653107 R42 Ischemic stroke 83099284 2 I63.9 Abnormal gait 14700776 R 26.9 Peripheral nerve disease 999156847 G64 E53.8 E11.40 Closed injury of head 45 17187323 06 S09.90XS [id number] Mateo Moreno MD Main Office [address] [place] [address] 08/06/2016 12:43:06 08/06/2016 14:32:43 Abnormal gait 54983870 R26.9 Peripheral nerve disease 479948860 G64 E53.8 E11.40 Vertigo 269878253 R42 Ischemic stroke 68649484 2 I63.9 Health Concerns Section Related Observation LastModified by Organization Detai ls LastModified Time None Recorded Concern Status LastModified by Organization Details LastModified Time None Recorded Advance Directives Directive None Recorded Payers Encounter Date Sequence Insurance Name Policy Number Policy Diggs Covered Member ID Diggs Member ID Guarantor Name 12/08/2015 1 [facility] [id number] Claudio Devries [id number] Claudio Devries 12/31/2015 1 [facility] [id number] Claudio Devries [id number] Claudio Devries 04/13/2016 1 [facility] [id number] Claudio Devries [id number] Claudio Devries 08/06/2016 1 [facility] [id number] Claudio Devries [id number] Claudio Devries Notes Date Note Type [...] of his complaints. Mateo Moreno MD [address] [place] [address], [phone], [facility] 12/08/2015 23:48:15 12/31/2015 text/html Mr. Devries is he re for follow up and planned EMG/NCS of the lower extremities. In the interim between visits, there has been no appreciable changes in his neurologic course. The requested brain MRI was completed yesterday (12/30/15 [facility]), and was reviewed today. 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 He brought an older CT brain image on CD (06/03/15 [facility]) which would not open on our computer, [...] for vestibular rehab. Mateo Moreno MD [address] [place] [address], [phone], [facility] 01/07/2016 22:47:13 04/13/2016 text/html Mr. Devries [...] otherwise unchanged overall. Mateo Moreno MD [address] [place], [address], [facility] [place] 04/14/2016 23:06:55 08/06/2016 text/html Mr. Devries is [...] today [place] [address] [place] [address], [phone], [facility] [place] 08/06/2016 13:52:22
--- OUTSIDE RECORDS SUMMARY | 2024-12-31 18:43 | XMS_ITS | Patient Health Record ---
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 Name Role Phone ALICE FALCON Unavailable [phone] Reason For Referral No Information Medications Medication SIG (Take, Route, Frequency, Duration) Notes Start Date End Date Status Eliquis 5 MG Oral 05/26/2022 Active FENOFIBRATE MICRONIZED 48 MG TABLET *Reorder from [employer] for eRx and Interaction Alerts* 05/26/2022 Active [...] Status W/U Status Risk Notes Problem Hypothyroidism (41334896) Hypothyroidism, unspecified (E03.9) 03/26/20 22 Active confirmed Problem Angina pectoris (274790244) Angina pectoris, unspecified (I20.9) 03/26/20 22 Active confirmed Problem Atherosclerotic heart disease of [place] coronary artery without angina pectoris (136414453157830) Atherosclerotic heart disease of [place] coronary artery without angina pectoris (I25.10) 05/26/20 22 Active confirmed Problem Chronic atrial fibrillation (912971399) Chronic atrial fibrillation (I48.2) 07/03/20 19 Active confirmed Problem Peripheral vascular disease (468021191) Peripheral vascular disease, unspecified (I73.9) 05/26/20 22 Active confirmed Problem Dyspnea (295592477) Dyspnea, unspecified (R06.00) 03/26/20 22 Active confirmed Problem Tremor (39896728) Tremor, unspecified (R25.1) 01/17/20 20 Active confirmed Problem Long-term current use of drug therapy (593346976) 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) 03/26/20 22 Active confirmed Problem Mixed hyperlipidemia (188117451) Mixed hyperlipidemia (E78.2) 05/26/20 22 Active confirmed Problem Essential hypertension (36714508) Essential (primary) hypertension (I10) 06/09/20 23 Active confirmed Problem Mitral valve disorder (73644489) Nonrheumatic mitral (valve) insufficiency (I34.0) 03/26/20 22 Active confirmed Problem Atrial fibrillation (61258084) Unspecified atrial fibrillation (I48.91) 05/26/20 22 Active confirmed Plan Of Treatment No Information Insurance Providers Payer Name Payer Address Payer Phone Subscriber Number Group Number Insured Name Patient Relationship to Insured Coverage Start Date Coverage End Date Medicare Part B [address] [place] [phone] [id number] TERRI SALDIVAR Self - patient is the insured Medical (General) History Surgical History Surgery Date(Month/Year) Biopsy of lung (99695816) RIGHT Procedure on shoulder (90738 3003) [employer] LEFT SHOULDER SEPARATION Colonoscopy 03/25/2013 Percutaneous transluminal co ronary angioplasty (80472442) STENT TO LAD -CARDIAC CATH 2 STENTS 08/21/2012
--- OUTSIDE RECORDS SUMMARY | 2024-12-31 18:43 | XMS_ITS ---
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 Name Role Phone ALICE FALCON Unavailable [phone] Migration, Provider Unavailable Unavailable REASON FOR VISIT EMR-Nando Encounters Encounter Location Date Provider Diagnosis Cardiology [facility] [address] [place], [place] [id number] 08/06/2023 Provider Migration Plan Of Treatment No Information Progress Notes * TERRI SALDIVAR RDOB: (69 yo M)Acc No.[id number]:08/06/2023 Patient: Zach TERRI GOODEN :1955 A ge:68 Y S ex:Male Address:[address] [place], [address] Subjective: * Chief Complaints: * E MR-Nando * Medical History: * Surgical History: * Hospitalization/Major Diagno stic Procedure: * Medications: Objective: * Vitals: * Physical Examination: Assessment: Plan: * Treatment: * Procedure Codes: * * Date:
--- OUTSIDE RECORDS SUMMARY | 2024-12-31 18:43 | XMS_ITS | Clinical Summary ---
Author Organization [facility] Address [facility] [place] [address] Care Team Providers Care Damascener Name Role Phone Emeka Garcia MD Unavailable [phone] Viv Seo MD Unavailable Kahlil Peres MD Primary Care Provider Allergies Active Allergy Reactions Criticality Noted Date [...] needed (Agitation). 60 tablet 12/18/19 25 Active atorvastatin (LIPITOR) 80 MG tablet Take 1 tablet (80 mg total) by mouth nightly at bedtime. 11/16/20 22 025 Discontinued(St op Taking at Discharge) ezetimibe (ZETIA) 10 MG tablet Take 1 [...] 24 025 Discontinued(St op Taking at Discharge) HYDROcodone-ac etaminophen (NORCO) 10-325 MG tablet Take [...] 11/30/2024 NSTEMI (non-ST elevated myoc ardial infarction) ([facility]) 12/26/2023 Multiple fractures of ribs, bilateral, initial encounter for closed fracture 10/02/2023 Fall 10/02/2023 SOB (shortness of breath) on exertion 12/30/2022 Encounters Date Type Department Care Team Description 12/19/2024 Telephone [facility] [address] [place] [address] Emeka Garcia MD Error 11/30/2024 2:31 PM HOGSHEAD STRIPPER - 12/18/2024 12:39 PM [facility] [employer]PER Hospital Encounter [facility] Neurology [address] [place] [address] Lara Ramos MD Ahmed, Asad N, MD Missula, Venkata R Karthik, MD Anunobi, Nnamdi, MD Udeozo, Obiora I, MD Sonani, Bhavin V., MD Ahmad, Saad N, MD Discharge Disposition: Intermediate Facility 11/30/2024 Travel from Last 3 Months Immunizations Name Administration Dates Next Due Tdap (Boostrix) 07/11/2024 Tdap (Generic) 06/03/2015 Social History Tobacco Use Types Packs/Day Years Used Date Smoking Tobacco: Never Smokeless Tobacco: Never Tobacco Cessation:Counseling Given: Not Answered Alcohol Use Standard Drinks/Week Comments Yes 16.7 (1 standard drink = 0.6 oz pure alcohol) [facility] Utilities Answer Date Recorded In the past 12 months has th e electric, gas, oil, or water [employer] threatened to shut off services in your [...] place to sleep or slept in a fci (including now)? No 12/27/2023 Housing Stability Vital Sign Answer Varinder e Recorded In the last 12 months, was t here a time when you were not able to pay the mortgage or rent on time? No 11/30/2024 In the past 12 months, how m any times have you moved where you were living? 1 11/30/2024 At any time in the past 12 m [facility], were you homeless or living in a fci (including now)? Patient unable to answer 11/30/2024 Sex and Gender Information Value Date Recorded Sex Assigned at Male 12/04/2024 9:12 AM [employer]GSHEAD STRIPPER Legal Sex Male 5:48 PM [employer]GSHEAD STRIPPER Gender Identity Not on file Sexual Orientation Not on file Last Filed Vital Signs Vital Sign Reading Time Taken Comments Blood Pressure 119/71 12/18/2024 8:01 AM HOGSHEAD STRIPPER Pulse 82 12/18/2024 8:01 AM HOGSHEAD STRIPPER Temperature 36.5 C (97.7 F) 12/18/2024 8:01 AM HOGSHEAD STRIPPER Respiratory Rate 18 12/18/2024 8:01 AM HOGSHEAD STRIPPER Oxygen Saturation 99% 12/18/2024 8:01 AM HOGSHEAD STRIPPER Inhaled Oxygen Concentration - - Weight 64.3 kg (141 lb 12.1 oz) 12/18/2024 3:25 AM HOGSHEAD STRIPPER Height 177.8 cm (5' 10 ) 12/17/2024 4:26 AM HOGSHEAD STRIPPER Body Mass Index 20.34 12/17/2024 4:26 AM HOGSHEAD STRIPPER Plan of Treatment Upcoming Encounters Date Type Department Care Team (Late st Contact Info) Description 03/13/2025 11:00 AM CDT Office Visit [facility] [id number] [place] [phone] Emeka Garcia MD [address], [place] [phone] 05/15/2025 8:[address] [place] [place] [address] Viv Seo MD [address] [place], [place] [phone] 05/20/2025 2:45 PM CDT Office Visit [facility] [place] [address] Viv Seo MD [address] [place] [address] Health Maintenance Due Date Last Done Comments ASCVD Statin 1955 Colorectal Cancer Screening Colonoscopy (10 Years) 1955 Pneumococcal Vaccine: 65+ Years (1 of 2 - PCV) 1961 Hepatitis C 1973 Zoster Vaccines (1 of 2) 2005 RSV Immunization or 60+ Years (1 - Risk 60-74 years 1-dose series) 2015 Annual Medicare Wellness Visit 2020 COVID-19 Vaccine (1 - 2023-2 5 season) 2024 Influenza Adult (#1) 2024 ASCVD LDL 12/27/2024 12/27/2023 DTaP, Tdap and Td Vaccines ( 3 [...] upon discharge from hospital 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 Procedure Name Priority Date/Time Associated Diagnosis Comments POCT GLUCOSE - HULL DOCKED DEVICE Routine 12/18/2024 12:02 PM HOGSHEAD STRIPPER USV VAST TEAM MIDLINE INSERT >5YR STAT 12/18/2024 11:15 AM HOGSHEAD STRIPPER BASIC METABOLIC PANEL STAT 12/18/2024 9:13 AM HOGSHEAD STRIPPER POCT GLUCOSE - HULL DOCKED DEVICE Routine 12/18/2024 5:42 AM HOGSHEAD STRIPPER POCT GLUCOSE - HULL DOCKED DEVICE Routine 12/18/2024 12:00 AM HOGSHEAD STRIPPER POCT GLUCOSE - HULL DOCKED DEVICE Routine 12/17/2024 5:26 PM HOGSHEAD STRIPPER POCT GLUCOSE - HULL DOCKED DEVICE Routine 12/17/2024 12:[address] GD ASPIR+BX BONE MARROW Today 12/17/2024 9:07 AM HOGSHEAD STRIPPER FLOW CYTOMETRY Routine 12/17/2024 9:00 AM HOGSHEAD STRIPPER PROTHROMBIN TIME, VENOUS STAT 12/17/2024 8:00 AM HOGSHEAD STRIPPER CBC W/DIFF AUTOMATED Routine 12/17/2024 3:45 AM HOGSHEAD STRIPPER BASIC METABOLIC PANEL Routine 12/17/2024 3:45 AM HOGSHEAD STRIPPER PATHOLOGY Routine 12/17/2024 12:00 AM HOGSHEAD STRIPPER POCT GLUCOSE - HULL DOCKED DEVICE Routine 12/16/2024 4:38 PM HOGSHEAD STRIPPER POCT GLUCOSE - HULL DOCKED DEVICE Routine 12/16/2024 11:51 AM HOGSHEAD STRIPPER POCT GLUCOSE - HULL DOCKED DEVICE Routine 12/16/2024 5:11 AM HOGSHEAD STRIPPER POCT GLUCOSE - HULL DOCKED DEVICE Routine 12/15/2024 8:11 PM HOGSHEAD STRIPPER ECG 12-LEAD Routine 12/15/2024 6:38 PM HOGSHEAD STRIPPER POCT GLUCOSE - HULL DOCKED DEVICE Routine 12/15/2024 4:00 PM HOGSHEAD STRIPPER POCT GLUCOSE - HULL DOCKED DEVICE Routine 12/15/2024 11:28 AM HOGSHEAD STRIPPER POCT GLUCOSE - HULL DOCKED DEVICE Routine 12/15/2024 5:12 AM HOGSHEAD STRIPPER CBC, AUTO, NO DIFF Routine 12/15/2024 3: 14 AM HOGSHEAD STRIPPER BASIC METABOLIC PANEL Routine 12/15/2024 3:14 AM HOGSHEAD STRIPPER POCT GLUCOSE - HULL DOCKED DEVICE Routine 12/15/2024 12:28 AM HOGSHEAD STRIPPER POCT GLUCOSE - HULL DOCKED DEVICE Routine 12/14/2024 7:57 PM HOGSHEAD STRIPPER POCT GLUCOSE - HULL DOCKED DEVICE Routine 12/14/2024 5:42 PM HOGSHEAD STRIPPER POCT GLUCOSE - HULL DOCKED DEVICE Routine 12/14/2024 1:28 PM HOGSHEAD STRIPPER POCT GLUCOSE - HULL DOCKED DEVICE Routine 12/14/2024 6:26 AM HOGSHEAD STRIPPER POCT GLUCOSE - HULL DOCKED DEVICE Routine 12/13/2024 10:49 PM HOGSHEAD STRIPPER POCT GLUCOSE - HULL DOCKED DEVICE Routine 12/13/2024 9:20 PM HOGSHEAD STRIPPER POCT GLUCOSE - HULL DOCKED DEVICE Routine 12/13/2024 6:12 PM HOGSHEAD STRIPPER POCT GLUCOSE - HULL DOCKED DEVICE Routine 12/13/2024 11:57 AM HOGSHEAD STRIPPER IMMUNOFIXATION, URINE 24 HR Routine 12/13/2024 11:30 AM HOGSHEAD STRIPPER PROTEIN ELECTROPHORESIS URINE 24 HR Routine 12/13/2024 11:30 AM HOGSHEAD STRIPPER PROTEIN TOTAL URINE 24 HR Nurse Collected Priority 12/13/2024 11:30 AM HOGSHEAD STRIPPER Anemia, unspecified type POCT GLUCOSE - HULL DOCKED DEVICE Routine 12/13/2024 6:29 AM HOGSHEAD STRIPPER CBC, AUTO, NO DIFF Routine 12/13/2024 2: 20 AM HOGSHEAD STRIPPER BASIC METABOLIC PANEL Routine 12/13/2024 2:20 AM HOGSHEAD STRIPPER POCT GLUCOSE - HULL DOCKED DEVICE Routine 12/12/2024 7:51 PM HOGSHEAD STRIPPER POCT GLUCOSE - HULL DOCKED DEVICE Routine 12/12/2024 4:56 PM HOGSHEAD STRIPPER XR CHEST PORTABLE Today 12/12/2024 12:15 PM HOGSHEAD STRIPPER URIC ACID BLOOD Routine 12/12/2024 11:42 AM HOGSHEAD STRIPPER Anemia, unspecified type LDH, LACTATE DEHYDROGENASE Routine 12/12/2024 11:42 AM HOGSHEAD STRIPPER Anemia, unspecified type BETA 2 MICROGLOBULIN, SERUM (QST) Routine 12/12/2024 11:42 AM HOGSHEAD STRIPPER Anemia, unspecified type POCT GLUCOSE - HULL DOCKED DEVICE Routine 12/12/2024 11:05 AM HOGSHEAD STRIPPER POCT GLUCOSE - HULL DOCKED DEVICE Routine 12/12/2024 6:15 AM HOGSHEAD STRIPPER CBC W/DIFF AUTOMATED Routine 12/12/2024 2:57 AM HOGSHEAD STRIPPER BLOOD SMEAR INTERPRETATION BY Routine 12/12/2024 2:57 AM HOGSHEAD STRIPPER Anemia, unspecified type CBC, AUTO, NO DIFF Routine 12/12/2024 2: 57 AM HOGSHEAD STRIPPER BASIC METABOLIC PANEL Routine 12/12/2024 2:57 AM HOGSHEAD STRIPPER CK (CPK) Routine 12/12/2024 2:57 AM HOGSHEAD STRIPPER PATHOLOGY Routine 12/12/2024 12:00 AM HOGSHEAD STRIPPER POCT GLUCOSE - HULL DOCKED DEVICE Routine 12/11/2024 8:40 PM HOGSHEAD STRIPPER POCT GLUCOSE - HULL DOCKED DEVICE Routine 12/11/2024 12:36 PM HOGSHEAD STRIPPER XR BONE SURVEY COMPLETE Today 12/11/2024 12:12 PM HOGSHEAD STRIPPER IMMUNOFIXATION Routine 12/11/2024 8:44 AM HOGSHEAD STRIPPER KAPPA LAMBDA FREE RATIO (QST) Routine 12/11/2024 8:44 AM HOGSHEAD STRIPPER PROTEIN, ELECTROPHORESIS Routine 12/11/2024 8:44 AM HOGSHEAD STRIPPER POCT GLUCOSE - HULL DOCKED DEVICE Routine 12/11/2024 5:36 AM HOGSHEAD STRIPPER POCT GLUCOSE - HULL DOCKED DEVICE Routine 12/11/2024 12:31 AM HOGSHEAD STRIPPER POCT GLUCOSE - HULL DOCKED DEVICE Routine 12/10/2024 11:38 PM HOGSHEAD STRIPPER POCT GLUCOSE - HULL DOCKED DEVICE Routine 12/10/2024 8:10 PM HOGSHEAD STRIPPER POCT GLUCOSE - HULL DOCKED DEVICE Routine 12/10/2024 7:31 PM HOGSHEAD STRIPPER POCT GLUCOSE - HULL DOCKED DEVICE Routine 12/10/2024 5:29 PM HOGSHEAD STRIPPER VANCOMYCIN TIMED 12/10/2024 10:03 AM HOGSHEAD STRIPPER BASIC METABOLIC PANEL Routine 12/10/2024 7:04 AM HOGSHEAD STRIPPER CBC W/DIFF AUTOMATED Routine 12/10/2024 7:[address] HIP RT WO CON Today 12/09/2024 12:15 PM HOGSHEAD STRIPPER CBC W/DIFF AUTOMATED Routine 12/09/2024 3:26 AM HOGSHEAD STRIPPER BASIC METABOLIC PANEL Routine 12/09/2024 3:26 AM HOGSHEAD STRIPPER BASIC METABOLIC PANEL TIMED 12/07/2024 7:42 PM HOGSHEAD STRIPPER VANCOMYCIN TIMED 12/07/2024 7:42 PM HOGSHEAD STRIPPER BLOOD GAS, ARTERIAL LAB Routine 12/07/2024 6:21 AM HOGSHEAD STRIPPER PRO-BRAIN NATRIURETIC PEPTIDE Routine 12/07/2024 6:21 AM HOGSHEAD STRIPPER XR CHEST PORTABLE STAT 12/07/2024 5:2 4 AM HOGSHEAD STRIPPER BASIC METABOLIC PANEL Routine 12/07/2024 1:53 AM HOGSHEAD STRIPPER CBC W/DIFF AUTOMATED Routine 12/07/2024 1:53 AM HOGSHEAD STRIPPER USE ECHOCARDIOGRAM W CON Today 12/06/2024 11:32 AM HOGSHEAD STRIPPER CBC W/DIFF AUTOMATED STAT 12/06/2024 3:21 AM HOGSHEAD STRIPPER COMPREHENSIVE METABOLIC PANEL Routine 12/06/2024 1:39 AM HOGSHEAD STRIPPER BASIC METABOLIC PANEL TIMED 12/05/2024 8:42 PM HOGSHEAD STRIPPER VANCOMYCIN TIMED 12/05/2024 6:44 PM HOGSHEAD STRIPPER XR CHEST PORTABLE Today 12/05/2024 2:2 4 PM HOGSHEAD STRIPPER XR SPEECH SWALLOW SJS ONLY Routine 12/05/2024 9:43 AM HOGSHEAD STRIPPER BASIC METABOLIC PANEL Routine 12/05/2024 1:51 AM HOGSHEAD STRIPPER MAGNESIUM Routine 12/05/2024 1:51 AM HOGSHEAD STRIPPER CBC W/DIFF AUTOMATED Routine 12/05/2024 1:51 AM HOGSHEAD STRIPPER POCT GLUCOSE - HULL DOCKED DEVICE Routine 12/04/2024 11:23 AM HOGSHEAD STRIPPER XR CHEST PORTABLE Today 12/04/2024 8:4 6 AM HOGSHEAD STRIPPER POCT GLUCOSE - HULL DOCKED DEVICE Routine 12/04/2024 6:03 AM HOGSHEAD STRIPPER BASIC METABOLIC PANEL TIMED 12/04/2024 5:45 AM HOGSHEAD STRIPPER PARTIAL THROMBOPLASTIN TIME,PTT TIMED 12/04/2024 5:45 AM HOGSHEAD STRIPPER HEPARIN, ANTI XA, UFH TIMED 12/04/2024 5:45 AM HOGSHEAD STRIPPER MAGNESIUM Routine 12/04/2024 5:45 AM HOGSHEAD STRIPPER CBC W/DIFF AUTOMATED Routine 12/04/2024 5:45 AM HOGSHEAD STRIPPER VANCOMYCIN TIMED 12/04/2024 5:45 AM HOGSHEAD STRIPPER PARTIAL THROMBOPLASTIN TIME,PTT Routine 12/04/2024 12:15 AM HOGSHEAD STRIPPER POCT GLUCOSE - HULL DOCKED DEVICE Routine 12/04/2024 12:04 AM HOGSHEAD STRIPPER POCT GLUCOSE - HULL DOCKED DEVICE Routine 12/03/2024 4:38 PM HOGSHEAD STRIPPER PARTIAL THROMBOPLASTIN TIME,PTT Routine 12/03/2024 4:34 PM HOGSHEAD STRIPPER POCT GLUCOSE - HULL DOCKED DEVICE Routine 12/03/2024 11:32 AM HOGSHEAD STRIPPER PARTIAL THROMBOPLASTIN TIME,PTT TIMED 12/03/2024 7:45 AM HOGSHEAD STRIPPER CBC W/DIFF AUTOMATED Routine 12/03/2024 4:22 AM HOGSHEAD STRIPPER MAGNESIUM Routine 12/03/2024 4:20 AM HOGSHEAD STRIPPER BASIC METABOLIC PANEL Routine 12/03/2024 4:20 AM HOGSHEAD STRIPPER PROCALCITONIN (PCT) STAT 12/02/2024 11:33 PM HOGSHEAD STRIPPER LACTIC ACID STAT 12/02/2024 11:33 PM HOGSHEAD STRIPPER PRO-BRAIN NATRIURETIC PEPTIDE STAT 12/02/2024 11:33 PM HOGSHEAD STRIPPER POCT GLUCOSE - HULL DOCKED DEVICE Routine 12/02/2024 11:16 PM HOGSHEAD STRIPPER BLOOD GAS, ARTERIAL LAB Routine 12/02/2024 11:10 PM HOGSHEAD STRIPPER PARTIAL THROMBOPLASTIN TIME,PTT TIMED 12/02/2024 11:10 PM HOGSHEAD STRIPPER LACTIC ACID TIMED 12/02/2024 9:50 PM HOGSHEAD STRIPPER XR CHEST PORTABLE STAT 12/02/2024 7:0 2 PM HOGSHEAD STRIPPER COMPREHENSIVE METABOLIC PANEL STAT 12/02/2024 6:58 PM HOGSHEAD STRIPPER CBC W/DIFF AUTOMATED STAT 12/02/2024 6:58 PM HOGSHEAD STRIPPER BLOOD GAS, ARTERIAL LAB STAT 12/02/2024 6:58 PM HOGSHEAD STRIPPER LACTIC ACID Routine 12/02/2024 6:58 PM HOGSHEAD STRIPPER CULTURE, BACTERIA, BLOOD STAT 12/02/2024 6:57 PM HOGSHEAD STRIPPER ECG 12-LEAD STAT 12/02/2024 6:45 PM HOGSHEAD STRIPPER POCT GLUCOSE - HULL DOCKED DEVICE Routine 12/02/2024 6:37 PM HOGSHEAD STRIPPER PARTIAL THROMBOPLASTIN TIME,PTT TIMED 12/02/2024 6:12 PM HOGSHEAD STRIPPER POCT GLUCOSE - HULL DOCKED DEVICE Routine 12/02/2024 4:26 PM HOGSHEAD STRIPPER POCT GLUCOSE - HULL DOCKED DEVICE Routine 12/02/2024 12:15 PM HOGSHEAD STRIPPER PARTIAL THROMBOPLASTIN TIME,PTT Routine 12/02/2024 10:46 AM HOGSHEAD STRIPPER POCT GLUCOSE - HULL DOCKED DEVICE Routine 12/02/2024 6:07 AM HOGSHEAD STRIPPER XR CHEST PORTABLE STAT 12/02/2024 5:3 9 AM HOGSHEAD STRIPPER PARTIAL THROMBOPLASTIN TIME,PTT STAT 12/02/2024 4:07 AM HOGSHEAD STRIPPER BASIC METABOLIC PANEL Routine 12/02/2024 1:17 AM HOGSHEAD STRIPPER C-REACTIVE PROTEIN Routine 12/02/2024 1: 17 AM HOGSHEAD STRIPPER POCT GLUCOSE - HULL DOCKED DEVICE Routine 12/01/2024 11:59 PM HOGSHEAD STRIPPER PARTIAL THROMBOPLASTIN TIME,PTT STAT 12/01/2024 6:16 PM HOGSHEAD STRIPPER POCT GLUCOSE - HULL DOCKED DEVICE Routine 12/01/2024 5:01 PM HOGSHEAD STRIPPER PROTHROMBIN TIME, VENOUS STAT 12/01/2024 4:42 PM HOGSHEAD STRIPPER HEPARIN, ANTI XA, UFH STAT 12/01/2024 4:42 PM HOGSHEAD STRIPPER POCT GLUCOSE - HULL DOCKED DEVICE Routine 12/01/2024 11:23 AM HOGSHEAD STRIPPER PRO-BRAIN NATRIURETIC PEPTIDE STAT 12/01/2024 4:58 AM HOGSHEAD STRIPPER BLOOD GAS, VENOUS STAT 12/01/2024 4:5 8 AM HOGSHEAD STRIPPER PHOSPHORUS, INORGANIC PHOSPHATE STAT 12/01/2024 4:58 AM HOGSHEAD STRIPPER CBC W/DIFF AUTOMATED STAT 12/01/2024 4:58 AM HOGSHEAD STRIPPER LACTIC ACID STAT 12/01/2024 4:58 AM HOGSHEAD STRIPPER MAGNESIUM Routine 12/01/2024 4:58 AM HOGSHEAD STRIPPER COMPREHENSIVE METABOLIC PANEL Routine 12/01/2024 4:58 AM HOGSHEAD STRIPPER C-REACTIVE PROTEIN Routine 12/01/2024 4: [address] HEAD WO CON Today 11/30/2024 11:05 PM HOGSHEAD STRIPPER BASIC METABOLIC PANEL TIMED 11/30/2024 8:43 PM HOGSHEAD STRIPPER C-REACTIVE PROTEIN STAT 11/30/2024 4: 39 PM HOGSHEAD STRIPPER BASIC METABOLIC PANEL STAT 11/30/2024 4:39 PM HOGSHEAD STRIPPER VITAMIN B1 THIAMINE STAT 11/30/2024 4 :39 PM HOGSHEAD STRIPPER THYROID STIM HORMONE TSH Routine 11/30/2024 4:39 PM HOGSHEAD STRIPPER PROTHROMBIN TIME, VENOUS Routine 11/30/2024 4:39 PM HOGSHEAD STRIPPER CBC W/DIFF AUTOMATED Routine 11/30/2024 4:39 PM HOGSHEAD STRIPPER LIPID PANEL Routine 12/27/2023 7:08 AM HOGSHEAD STRIPPER from Last 3 Months or Most Recently Relevant to Health Maintenance Results * (ABNORMAL) POCT glucose (12/18/2024 12:02 PM HOGSHEAD STRIPPER) Only the most recent of47 resultswithin the time period is included. GLUCOSE POC 143(H) 70 - 109 12/18/2024 12:50 PM HOGSHEAD STRIPPER [facility] 12/18/2024 12:0 2 PM HOGSHEAD STRIPPER us Donn Hoffman MD POCT ORDERABLES - DEVICE Final R esult [facility] [address] [place] [address], [id number] * USV VAST TEAM MIDLINE INSERT >5YR (12/18/2024 11:15 AM HOGSHEAD STRIPPER) Anatomical Region Laterality Modality NA Vascular Ultraso und 12/18/2024 10:4 9 AM HOGSHEAD STRIPPER Narrative 12/18/2024 10:49 AM HOGSHEAD STRIPPER This report does not contain a radiologist's interpretation. Please review associated procedure and/or operative report. Procedure Note , Generic Conversion, - 12/18/2024 This report does not contain a radiologist's interpretation. Please review associated procedure and/or operative report. Donn Hoffman MD [facility] Final Result * (ABNORMAL) BASIC METABOLIC PANEL (12/18/2024 9:13 AM HOGSHEAD STRIPPER) Only the most recent of16 resultswithin the time period is included. SODIUM S/P/B 135(L) 136 - 145 MMOL/L 12/18/2024 9:45 AM [facility] POTASSIUM S/P/B 4.5 3.5 - 5.1 MMOL/L 12/18/2024 9:45 AM [facility] CHLORIDE S/P/B 106 97 - 115 MMOL/L 12/18/2024 9:45 AM [facility] CO2 26.0 21.0 - 32.0 MMOL/L 12/18/2024 9:45 AM [facility] GLUCOSE 124(H) 74 - 106 MG/DL 12/18/2024 9:45 AM [facility] BUN 28(H) 7 - 18 MG/DL 12/18/2024 9:45 AM [facility] CREATININE S/P/B 1.33(H) 0.70 - 1.30 MG/DL 12/18/2024 9:45 AM [facility] CALCIUM S/P/B 8.9 8.5 - 10.1 MG/DL 12/18/2024 9:45 AM [facility] ANION GAP 3.0 2.0 - 10.0 MMOL/L 12/18/2024 9:45 AM [facility] STRIPPER [facility] OSMOLALITY (CALC) 287 MOSM/KG 025 9:45 AM HOGSHEAD STRIPPER [facility] Comment:REFERENCE RANGE NOT ESTABLISHED GFR ESTIMATE 58(L) >90 ML/MIN/1. 73 M2 12/18/2024 9:45 AM HOGSHEAD STRIPPER [facility] GFR NOTES GFR REFERENCE S: 12/18/2024 9:45 AM HOGSHEAD STRIPPER [facility] Comment: THE ESTIMATED GFR IS CALCULATED [...] FAILURE: <15 ml/min/1.73 m2 12/18/2024 9:13 AM HOGSHEAD STRIPPER Donn Hofmfan MD LABORATORY Final Result [facility] [address] [place] [id number], [id number] * CT GD ASPIR+BX BONE MARROW (12/17/2024 9:07 AM HOGSHEAD STRIPPER) Anatomical Region Laterality Modality Bone Computed Tomogra phy 12/18/2024 8:50 AM HOGSHEAD STRIPPER Impressions 12/18/2024 10:53 AM HOGSHEAD STRIPPER IMPRESSION: CT-guided percutaneous bone marrow biopsy, as described. The attending radiologist, Dr. Glasgow, was in the department for all critical portions of the procedure, has reviewed the images, and agrees with the content of this report. Dictated By: VEL Dove on 12/18/2024 8:50 AM Ordered By: DIONICIO BAKER Interpreted By: VEL Dove, 12/18/2024 8:50 AM Narrative 12/18/2024 10:53 AM HOGSHEAD STRIPPER [address] [address] PROCEDURE: CT-GUIDED BONE MARROW ASPIRATION AND BIOPSY DATE OF PROCEDURE: 12/17/2024 8:27 AM INDICATION: Anemia. Concern for myeloma. Primary provider: Jacob Campos PA-C Supervising provider: Reyes Glasgow M.D. Conscious sedation: Administered and monitored by a qualified interventional radiology nurse under supervision of the interventional physician field technical assistant. There was continuous monitoring of vital signs including pulse oximetry, end-tidal CO2, and EKG. Total intraservice or [id number]-[id number]-bbck sedation time: 4 minutes. TECHNIQUE AND FINDINGS: Informed written consent was obtained. The patient was then brought to the CT scanner suite, placed in the prone position, and Blythe protocol was observed to verify correct patient, [...] The needle was then connected to an [employer] motorized device to penetrate the cortex. At [...] Procedure Note Reyes Glasgow MD - 12/18/2024 [facility] [address] [place], [place] [address] PROCEDURE: CT-GUIDED BONE MARROW ASPIRATION AND BIOPSY DATE OF PROCEDURE: 12/17/2024 8:27 AM INDICATION: Anemia. Concern for myeloma. Primary provider: Jacob Campos PA-C Supervising provider: Reyes Glasgow M.D. Conscious sedation: Administered and monitored by a qualifiedinterventional radiology nurse under supervision of the interventionalphysician field technical assistant. There was continuous monitoring of vital signsincluding pulse oximetry, end-tidal CO2, and EKG. Total intraservice szyvxy-iv-hkhn sedation time: 4 minutes. TECHNIQUE AND FINDINGS: Informed written consent was obtained. The patient was then brought to theCT scanner suite, placed in the prone position, and Blythe protocol wasobserved to verify correct patient, site, [...] Result * Flow Cytometry (12/17/2024 9:00 AM HOGSHEAD STRIPPER) FLOW CYTOMETRY RESULTS [facility] Department of Laboratory Medicine [address] [place] [id number] , extension [phone] Pathology Report Flow Cytometry Report Name: TERRI DEVRIES Specimen #: [id number] Age: 6 1955 (Age: 69) Location: [facility] Sex: M Procedure Date: 12/17/2024 Hospital #: [id number] Date Received: 12/17/2024 Date Reported: 12/23/2024 Provider: [...] concurrently. Result: Tested: CD45, CD19, CD20, Surface [place], Surface Lambda, CD5, CD10, CD38, CD34, CD14, [...] interpretation, and sign out were performed at [facility], [address] [place] [address]. Electronically Signed Out RUBEN RIVERS MD This test was developed and its performance characteristics determined by [facility]. It has not been cleared or approved by the U.S. Food and Drug Administration. However, the use of Analyte Specific Reagents does not require FDA approval. [facility] 12/17/2024 9:00 AM HOGSHEAD STRIPPER 12/17/2024 9:15 AM [facility] STRIPPER Comment:Bone marrow aspirati on (See report [id number]) Dionicio Baker MD PATHOLOGY/CYTOLOGY ORDERABLES Fi nal Result [facility] [address] [place] [address], [id number] * (ABNORMAL) PROTIME/INR, VENOUS (12/17/2024 8:00 AM HOGSHEAD STRIPPER) Only the most recent of3 resultswithin the time period is included. PROTIME 13.8(H) 9.4 - 12.5 SEC 12/17/2024 8:29 AM [facility]HEAD STRIPPER [facility] INR 1.2(H) 0.8 - 1.1 12/17/2024 8:29 AM [facility]GSHEAD STRIPPER [facility] 12/17/2024 8:00 AM HOGSHEAD STRIPPER Reyes Glasgow MD LABORATORY Final Resu lt [facility] [address] [place] [address], [id number] * (ABNORMAL) CBC W/DIFF AUTOMATED (12/17/2024 3:45 AM HOGSHEAD STRIPPER) Only the most recent of12 resultswithin the time period is included. WBC 4.81 4.00 - 10.80 x10'3/uL 12/17/2024 4:27 AM [facility] RBC 3.07(L) 4.50 - 6.10 x10'6/uL 12/17/2024 4:27 AM [facility] HGB 9.8(L) 12.0 - 16.0 G/DL 12/17/2024 4:27 AM [facility] HCT 30.4(L) 37.0 - 52.0 % 12/17/2024 4:27 AM [facility] MCV 99.0 78.0 - 100.0 FL 12/17/2024 4:27 AM [facility] MCH 31.9(H) 27.0 - 31.0 PG 12/17/2024 4:27 AM [facility] MCHC 32.2(L) 33.0 - 36.0 G/DL 12/17/2024 4:27 AM [facility] RDW 13.6 11.5 - 14.5 % 12/17/2024 4:27 AM [facility] PLT 207 150 - 350 x10'3/uL 12/17/2024 4:27 AM [facility] MPV 11.3(H) 7.4 - 10.4 FL 12/17/2024 4:27 AM [facility] DIFFERENTIAL TYPE AUTOMATED DIFFERENTIAL 12/17/2024 4:27 AM [facility] SEG NEUTROPHILS 60.5 % 4:27 AM [facility] LYMPHOCYTES 22.5 % 12/17/2024 4:27 AM [facility] MONOCYTES 12.9 % 12/17/2024 4:27 AM [facility] EOSINOPHILS 3.3 % 12/17/2024 4:27 AM [facility] BASOPHILS 0.4 % 12/17/2024 4:27 AM [facility] IMMATURE GRANS % 0.4 % 12/17/19 4:27 AM [facility] ABS. NEUTROPHILS 2.91 1.60 - 8.30 x10'3/uL 12/17/2024 4:27 AM [facility] ABS. LYMPHOCYTES 1.08 0.80 - 4.70 x10'3/uL 12/17/2024 4:27 AM [facility] ABS. MONOCYTES 0.62 0.00 - 1.50 x10'3/uL 12/17/2024 4:27 AM [facility] ABS. EOSINOPHILS 0.16 0.00 - 0.40 x10'3/uL 12/17/2024 4:27 AM [facility] ABS. BASOPHILS 0.02 0.00 - 0.20 x10'3/uL 12/17/2024 4:27 AM [facility] ABS. IMMATURE GRANULOCYTES 0.02 0.00 - 0.03 x10'3/uL 12/17/2024 4:27 AM [facility] ABS. NUCLEATED RBC'S 0.00 0.00 - 0.01 x10'3/uL 12/17/2024 4:27 AM HOGSHEAD STRIPPER [facility] NRBC % 0.0 % 12/17/2024 4:27 AM [facility] 12/17/2024 3:45 AM HOGSHEAD STRIPPER us Donn Hoffman MD LABORATORY Final Result [facility] [address] [place] [address], [id number] * Pathology (12/17/2024 12:00 AM HOGSHEAD STRIPPER) Only the most recent of2 resultswithin the time period is included. PATHOLOGY [facility] Department of Laboratory Medicine [address] [place] [address] , extension [phone] Pathology Report Bone Marrow Report Name: TERRI DEVRIES Specimen #: [id number] Age: 6 1955 (Age: 69) Location: [facility] Sex: M Procedure Date: 12/17/2024 Hospital #: [id number] Date Received: 12/17/2024 Date Reported: 12/23/2024 Provider: [...] cell, or blast population (see separate report [id number]). In summary, there is no diagnostic evidence [...] interpretation, and sign out were performed at [facility], [address] [place] [address]. All immunohistochemical and histochemical tests were developed by and performed at [facility], [address] [place] [address]. All tests reported here have not been cleared or approved by the U.S. Food and Drug Administration (FDA). This laboratory is regulated under CLIA as qualified to perform high-complexity testing. These tests are used for clinical purposes. They should not be regarded as investigational or for research. Positive and negative controls show appropriate reactivity. Electronically Signed Out RUBEN RIVERS MD INTERPRETATION: Peripheral Blood Comments: [...] cell, or blast population (see separate report [id number]). Cytogenetics/FISH: Not performed. [facility] 12/17/2024 12/17/2024 10: 22 AM HOGSHEAD STRIPPER Comment:Bone marrow, left il iac aspiration&Bone marrow left iliac biopsy us Lara Ramos MD PATHOLOGY/CYTOLOGY ORDERABLES Final Result [facility] [address] [place] [address], [id number] * ECG 12 lead (12/15/2024 6:38 PM HOGSHEAD STRIPPER) Only the most recent of2 resultswithin the time period is included. 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1955 Requested By: DONN OHFFMAN Order Number: [id number] Reading MD: Viv Seo Measurements Intervals Custer Rate: 101 P: DE: 0 QRS: -55 QRSD: 105 T: 131 QT: 374 QTc: 486 Interpretive Statements ATRIAL FIBRILLATION WITH RAPID VENTRICULAR RESPONSE LEFT ANTERIOR FASCICULAR BLOCK [QRS AXIS <= -45, QR IN I, RS IN II] PROBABLE SEPTAL MYOCARDIAL INFARCTION , PROBABLY OLD [35 ms Q WAVE IN V1/V2] HEAD STRIPPER Procedure Note Viv Seo MD - 12/15/2024 [place] [address] Test Date: 2024-12-15 Pat Name: [facility] Department: 1 Room: 816AA Gender: 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1955 Requested By: DONN HOFFMAN Order Number: [id number] Reading MD: Viv Seo Measurements Intervals Custer Rate: 101 P: DE: 0 QRS: -55 QRSD: 105 T: 131 QT: 374 QTc: 486 Interpretive Statements ATRIAL FIBRILLATION WITH RAPID VENTRICULAR RESPONSE LEFT ANTERIOR FASCICULAR BLOCK [QRS AXIS <= -45, QR IN I, RS IN II] PROBABLE SEPTAL MYOCARDIAL INFARCTION , PROBABLY OLD [35 ms Q WAVE INV1/V2] HEAD STRIPPER us Donn Hoffman MD ECG ORDERABLES Final Result [facility] * (ABNORMAL) CBC, AUTO, NO DIFF (12/15/2024 3:14 AM HOGSHEAD STRIPPER) Only the most recent of3 resultswithin the time period is included. WBC 6.63 4.00 - 10.80 x10'3/uL 12/15/2024 3:56 AM HOGSHEAD STRIPPER [facility] RBC 3.27(L) 4.50 - 6.10 x10'6/uL 12/15/2024 3:56 AM [facility] HGB 10.7(L) 12.0 - 16.0 G/DL 12/15/2024 3:56 AM HOGSHEAD STRIPPER [facility] HCT 32.4(L) 37.0 - 52.0 % 12/15/2024 3:56 AM HOGSHEAD STRIPPER [facility] MCV 99.1 78.0 - 100.0 FL 12/15/2024 3:56 AM HOGSHEAD STRIPPER [facility] MCH 32.7(H) 27.0 - 31.0 PG 12/15/2024 3:56 AM HOGSHEAD STRIPPER [facility] MCHC 33.0 33.0 - 36.0 G/DL 12/15/2024 3:56 AM [facility] RDW 13.6 11.5 - 14.5 % 12/15/2024 3:56 AM HOGSHEAD STRIPPER [facility] PLT 184 150 - 350 x10'3/uL 12/15/2024 3:56 AM [facility] MPV 11.4(H) 7.4 - 10.4 FL 12/15/2024 3:56 AM [facility] 12/15/2024 3:14 AM HOGSHEAD STRIPPER us Donn Hoffman MD LABORATORY Final Result Performing Organization Address [facility] de Phone Number [facility] [address] [place] [address], [place] [phone] * IMMUNOFIXATION, URINE 24 HR (12/13/2024 11:30 AM HOGSHEAD STRIPPER) IMMUNOFIXATION 24HR (U) SEE PATHOLOGIST'S INTERPRETATION 12/17/2024 1:01 PM [facility] IMMUNOFIXATION INTERPRETATION 24HR THIS URINE IMMUNOTYPING WAS INTERPRETED BY 12/18/2024 12:30 PM [facility] Comment: DR MELO MONTOYA MONOCLONAL PROTEIN NOT IDENTIFIED BENCE PINA PROTEIN NOT DETECTED. 12/13/2024 11:3 0 AM HOGSHEAD STRIPPER us Donn Hoffman MD URINE ORDERABLES Final Result Performing Organization Address [facility] de Phone Number [facility] [address] [place] [address], [place] [phone] * (ABNORMAL) PROTEIN TOTAL URINE 24 HR (12/13/2024 11:30 AM HOGSHEAD STRIPPER) PROTEIN URINE TOTAL RANDOM 79.1(H) <12.0 MG/DL 12/13/2024 12:41 PM [facility] TOTAL PROTEIN 24HR (U) 1,146.95(H ) 0 - 149 MG/24HR 12/13/2024 12:41 PM [facility] VOLUME (U) 1,450 ML 12/13/2024 12:16 PM HOGSHEAD STRIPPER [facility] URINE SPECIMEN / Unknown 12/13/2024 11:30 AM HOGSHEAD STRIPPER Nhung Seo MD URINE ORDERABLES Final Result Performing Organization Address [facility] Phone Number [facility] [address] [place] [address], [place] [phone] * (ABNORMAL) PROTEIN ELECTROPHORESIS URINE 24 HR (12/13/2024 11:30 AM HOGSHEAD STRIPPER) TOTAL PROTEIN 24HR (U) 1,147.0(H) <100 MG/24HRS 12/17/2024 12:59 PM HOGSHEAD STRIPPER [facility] INTERPRETATION THIS URINE PEP WAS INTERPRETED BY 12/18/2024 12:30 PM HOGSHEAD STRIPPER [facility] Comment: DR MELO MONTOYA THERE IS MODERATE 24 HOUR PROTEINURIA COMPOSED OF LOWER MOLECULAR WEIGHT PROTEINS (SELECTIVE PROTEINURIA). BENCE PINA PROTEIN IS NOT DETECTED. 12/13/2024 11:3 0 AM HOGSHEAD STRIPPER Donn Hoffman MD URINE ORDERABLES Final Result Performing Organization Address [facility] Phone Number [facility] [address] [place] [address], [place] [phone] * XR CHEST PORTABLE (12/12/2024 12:15 PM HOGSHEAD STRIPPER) Only the most recent of6 resultswithin the time period is included. Anatomical Region Laterality Modality Chest Radiographic Modesta ging 12/12/2024 3:21 PM HOGSHEAD STRIPPER Impressions 12/12/2024 3:22 PM HOGSHEAD STRIPPER IMPRESSION: 1. NO SIGNIFICANT INTERVAL CHANGE. Signed: Diogenes Arriaga MD Referred By: MINA YOU Interpreted By: Diogenes Arriaga MD, 12/12/2024 3:21 PM Narrative 12/12/2024 3:22 PM HOGSHEAD STRIPPER [facility] [address] [place], [place] [address] PATIENT NAME: TERRI DEVRIES EXAM: Chest one view DATE OF EXAM: 12/12/2024 COMPARISON EXAM: 12/07/2024 INDICATION: CHF TECHNIQUE: AP chest FINDINGS: Shallow inspiration. Mild cardiomegaly similar to previous study. Thoracic aorta remains mildly ectatic and tortuous. Mild pulmonary vascular congestion and edema similar to previous study. No new airspace consolidation. No gross pleural effusion. Procedure Note Diogenes Arriaga MD - 12/12/2024 [facility] [address] [place], [place] [address] PATIENT NAME: TERRI DEVRIES EXAM: Chest one [...] (ABNORMAL) LDH, LACTATE DEHYDROGENASE (12/12/2024 11:42 AM HOGSHEAD STRIPPER) LDH 280(H) 87 - 241 UNITS/L 12/12/2024 12:26 PM HOGSHEAD STRIPPER [facility] 12/12/2024 11:4 2 AM HOGSHEAD STRIPPER Nhung Seo MD LABORATORY Final Result [facility] [address] [place] [address], [place] [phone] * (ABNORMAL) BETA 2 MICROGLOBULIN, SERUM (QST) (12/12/2024 11:42 AM HOGSHEAD STRIPPER) BETA-2 MICROGLOBULIN 4.88(H) <=2.51 mg/L 12/17/2024 7:41 AM HOGSHEAD STRIPPER [facility] Comment: Test Performed by Tam Hurtado, [employer] [facility], [address] [place] [address] Melo Huertas M.D., Ph.D., Director of Laboratories , [facility] [id number] 12/12/2024 11:4 2 AM HOGSHEAD STRIPPER us Nhung Seo MD LABORATORY Final Result [facility] [address] [address], [place] [phone] * URIC ACID BLOOD (12/12/2024 11:42 AM HOGSHEAD STRIPPER) URIC ACID 5.7 3.5 - 7.2 MG/DL 12/12/2024 12:26 PM HOGSHEAD STRIPPER [facility] 12/12/2024 11:4 2 AM HOGSHEAD STRIPPER us Nhung Seo MD LABORATORY Final Result [facility] [address] [place] [address], [place] [phone] * BLOOD SMEAR INTERPRETATION BY (12/12/2024 2:57 AM HOGSHEAD STRIPPER) CBC PATHOLOGIST COMMENT SENT TO PATHOLOGIST FOR REVIEW 12/12/2024 11:17 AM HOGSHEAD STRIPPER [facility] 12/12/2024 2:57 AM HOGSHEAD STRIPPER us Nhung Seo MD LABORATORY Final Result Performing Organization Address City/[facility]/ZIP Co de Phone Number [facility] [address] [place] [address], [place] [phone] * CK (CPK) - Weekly starting tomorrow (12/12/2024 2:57 AM HOGSHEAD STRIPPER) CPK 54 39 - 308 U/L 12/12/2024 3:35 AM HOGSHEAD STRIPPER [facility] 12/12/2024 2:57 AM HOGSHEAD STRIPPER Tawana Barker NP LABORATORY Final Result Performing Organization Address [facility] Co de Phone Number [facility] [address] [place] [address], [place] [phone] * XR BONE SURVEY COMPLETE (12/11/2024 12:12 PM HOGSHEAD STRIPPER) Anatomical Region Laterality Modality Bone Radiographic Modesta ging 12/11/2024 10:2 4 PM HOGSHEAD STRIPPER Impressions 12/11/2024 10:37 PM HOGSHEAD STRIPPER IMPRESSION: 1. Scattered lucencies seen in the [...] 12/11/2024 10:24 PM Narrative 12/11/2024 10:37 PM HOGSHEAD STRIPPER [facility] [address] [place], [place] [address] Examination: XR BONE SURVEY COMPLETE Exam time: [...] radial and ulnar diaphyseal fractures. Procedure Note Elsi Zeke Arnol DO - 12/11/[address] [address] Examination: XR BONE SURVEY COMPLETE Exam time: [...] LAMBDA FREE RATIO (QST) (12/11/2024 8:44 AM HOGSHEAD STRIPPER) KAPPA FREE LIGHT CHAIN 83.0(H) 3.3 - 19.4 mg/L 12/13/2024 11:02 AM HOGSHEAD STRIPPER Indelsul FU-CHANTI LLY LAMBDA FREE LIGHT CHAIN 47.9(H) 5.7 - 26.3 mg/L 12/13/2024 11:02 AM HOGSHEAD STRIPPER [facility] KAPPA/LAMBDA FREE 1.73(H) 0.26 - 1.65 12/13/2024 11:02 AM HOGSHEAD STRIPPER [facility] ANAHIMARIA G LLY Comment: Free kappa/lambda ratio in serum [...] therapy of these disorders. Test Performed by [facility], [employer] [facility], [address] [place] [address] Melo Huertas M.D., Ph.D., Director of Laboratories , [facility] [id number] 12/11/2024 8:44 AM HOGSHEAD STRIPPER Donn Hoffman MD LABORATORY Final Result [facility] [address] , [place] [phone] * IMMUNOFIXATION (12/11/2024 8:44 AM HOGSHEAD STRIPPER) IMMUNOFIXATION SERUM SEE PATHOLOGIST'S INTERPRETATION 12/12/2024 11:59 AM HOGSHEAD STRIPPER [facility] IMMUNOFIX (SERUM) INTERPRETATION THIS SERUM IMMUNOTYPING WAS INTERPRETED BY 12/13/2024 9:32 AM HOGSHEAD STRIPPER [facility] Comment: DR GABI PINA MD MONOCLONAL PROTEIN NOT IDENTIFIED 12/11/2024 8:44 AM HOGSHEAD STRIPPER us Donn Hoffman MD LABORATORY Final Result Performing Organization Address [facility]/ZIP Co de Phone Number [facility] [address] [place] [address], [phone] * (ABNORMAL) PROTEIN, ELECTROPHORESIS (12/11/2024 8:44 AM HOGSHEAD STRIPPER) Pathologist [facility] TOTAL PROTEIN (ELECTROPHORESIS SERUM) 6.5 6.0 - 8.3 G/DL 12/12/2024 11:58 AM HOGSHEAD STRIPPER [facility] ALBUMIN ELECTROPHORESIS S/P/B 3.0(L) 3.4 - 4.9 G/DL 12/12/2024 11:57 AM HOGSHEAD STRIPPER [facility] [id number] S/P/B 0.3 0.2 - 0.4 G/DL 12/12/2024 11:57 AM HOGSHEAD STRIPPER [facility] [id number] S/P/B 0.9 0.4 - 1.0 G/DL 12/12/2024 11:57 AM HOGSHEAD STRIPPER [facility] BETA GLOBULIN S/P/B 1.1 0.5 - 1.2 G/DL 12/12/2024 11:57 AM HOGSHEAD STRIPPER [facility] GAMMA GLOBULIN S/P/B 1.2 0.6 - 1.6 G/DL 12/12/2024 11:57 AM HOGSHEAD STRIPPER [facility] ELECTROPHORESIS INTERPRETATION THIS SERUM PEP WAS INTERPRETED BY 12/13/2024 9:32 AM HOGSHEAD STRIPPER [facility] Comment: DR GABI PINA MD THE TOTAL SERUM PROTEIN IS NORMAL. ELECTROPHORESIS IDENTIFIES DECREASED ALBUMIN WITH NO ADDITIONAL QUANTITATIVE ABNORMALITIES. MONOCLONAL PROTEINS ARE NOT DETECTED. 12/11/2024 8:44 AM HOGSHEAD STRIPPER Donn Hoffman MD LABORATORY Final Result Performing Organization Address [facility] Co de Phone Number [facility] [address] [place] [address], [place] [phone] * Vancomycin Random Level (12/10/2024 10:03 AM HOGSHEAD STRIPPER) Only the most recent of4 resultswithin the time period is included. VANCOMYCIN RANDOM 17.3 MCG/ML 12/10/2024 10:47 AM HOGSHEAD STRIPPER [facility] Comment:REFERENCE RANGE NOT ESTABLISHED 12/10/2024 10:0 3 AM HOGSHEAD STRIPPER Jesu Duval MD LABORATORY Final Result [facility] [address] [place] [address], [phone] * CT HIP RT WO CON (12/09/2024 12:15 PM HOGSHEAD STRIPPER) Anatomical Region Laterality Modality Hip Computed Tomogra phy 12/09/2024 2:13 PM HOGSHEAD STRIPPER Impressions 12/09/2024 2:20 PM HOGSHEAD STRIPPER IMPRESSION: 1. No CT evidence of a right hip joint effusion. 2. Bone scan follow-up recommended for subtle, multifocal bone lucencies. Referred By: MINA YOU Interpreted By: Bryan Vences MD, 12/09/2024 2:13 PM Narrative 12/09/2024 2:20 PM HOGSHEAD STRIPPER [facility] [address] [place], [place] [address] EXAM: CT HIP RT WO CON DATE: [...] Procedure Note Bryan Vences MD - 12/09/[address] [address] EXAM: CT HIP RT WO CON DATE: [...] By: Bryan Vences MD, 12/09/2024 2:13 PM Jesu Duval MD CT Final Result * (ABNORMAL) PRO-BRAIN NATRIURETIC PEPTIDE (12/07/2024 6:21 AM HOGSHEAD STRIPPER) Only the most recent of3 resultswithin the time period is included. PRO-B TYPE NATRIURETIC PEPTIDE 16,835(H) <125 PG/ML 12/07/2024 7:02 AM HOGSHEAD STRIPPER [facility] Comment: AGE INDEPENDENT: <300 PG/ML HAS [...] 72% FOR ACUTE CHF. 12/07/2024 6:21 AM HOGSHEAD STRIPPER Jesu Duval MD LABORATORY Final Result [facility] [address] [place] [address], [phone] * ARTERIAL BLOOD GAS (12/07/2024 6:21 AM HOGSHEAD STRIPPER) Only the most recent of3 resultswithin the time period is included. PH ARTERIAL 7.44 7.35 - 7.45 12/07/2024 6:32 AM [facility] PCO2 36.5 35.0 - 45.0 MMHG 12/07/2024 6:32 AM [facility] PO2 84.4 83.0 - 108.0 MMHG 12/07/2024 6:32 AM [facility] BICARB ARTERIAL 24.1 22 - 26 MMOL/L 12/07/2024 6:32 AM [facility] TOTAL CO2 CAPILLARY 25.3 23 - 27 MMOL/L 12/07/2024 6:32 AM [facility] BE/BASE EXCESS 0.7 0 - 2 MMOL/L 12/07/2024 6:32 AM [facility] O2 Saturation 96 95 - 98 % 12/07/2024 6:32 AM [facility] SERGO TEST N/A 12/07/2024 6:21 AM [facility] OXYGEN STATUS 2 lt 12/07/2024 6:21 AM [facility] DRAW SITE ARTERIAL LT RADIAL 12/07/2024 6:21 AM [facility] 12/07/2024 6:21 AM HOGSHEAD STRIPPER Jesu Duval MD LABORATORY Final Result [facility] [address] [place] [address], [id number] * USE ECHOCARDIOGRAM W CON (12/06/2024 11:32 AM HOGSHEAD STRIPPER) Anatomical Region Laterality Modality NA Echocardiogram 12/06/2024 9:40 AM HOGSHEAD STRIPPER Narrative 12/06/2024 10:36 PM HOGSHEAD STRIPPER Echocardiography Report Pat.Name: YARIEL TERRI Torsten Pat.ID: [id number] St.Date: 12/06/2024 Refer.: [id number] KENYATTA IGLESIAS EWDPROV Exam Time: 9:40:00 AM Study Type:ECHO [...] Mass 2D Value 197 g LV Mass [id number] Value 101 g/m2 RA Volume Atrial Flores [...] Seo MD - 12/06/2024 Echocardiography Report Pat.Name: EDILMATERRI PINA Pat.ID: [id number] .Date: 12/06/2024 Refer.: [id number] KENYATTA ENRIQUEZ EWDPROV EWDPROV Exam Time: 9:40:00 [...] Mass 2D Value 197 g LV Mass [id number] Value 101 g/m2 RA Volume Atrial Flores [...] (ABNORMAL) COMPREHENSIVE METABOLIC PANEL (12/06/2024 1:39 AM HOGSHEAD STRIPPER) Only the most recent of3 resultswithin the time period is included. SODIUM S/P/B 146(H) 136 - 145 MMOL/L 12/06/2024 2:50 AM [facility] POTASSIUM S/P/B 3.5 3.5 - 5.1 MMOL/L 12/06/2024 2:50 AM [facility] CHLORIDE S/P/B 116(H) 97 - 115 MMOL/L 12/06/2024 2:50 AM [facility] CO2 26.2 21.0 - 32.0 MMOL/L 12/06/2024 2:50 AM [facility] GLUCOSE 90 74 - 106 MG/DL 12/06/2024 2:50 AM [facility] BUN 31(H) 7 - 18 MG/DL 12/06/2024 2:50 AM [facility] CREATININE S/P/B 2.15(H) 0.70 - 1.30 MG/DL 12/06/2024 2:50 AM [facility] CALCIUM S/P/B 8.9 8.5 - 10.1 MG/DL 12/06/2024 2:50 AM [facility] BILIRUBIN TOTAL S/P/B 0.7 0.2 - 1.0 MG/DL 12/06/2024 2:50 AM [facility] ALKALINE PHOSPHATASE S/P/B 45 45 - 115 U/L 12/06/2024 2:50 AM [facility] AST 61(H) 15 - 37 U/L 12/06/2024 2:50 AM [facility] ALT 62(H) 16 - 61 U/L 12/06/2024 2:50 AM [facility] TOTAL PROTEIN S/P/B 6.4 6.4 - 8.2 G/DL 12/06/2024 2:50 AM [facility] ALBUMIN S/P/B 2.3(L) 3.4 - 5.0 G/DL 12/06/2024 2:50 AM [facility] ANION GAP 3.8 2.0 - 10.0 MMOL/L 12/06/2024 2:50 AM [facility] OSMOLALITY (CALC) 308 MOSM/KG 025 2:50 AM [facility] Comment:REFERENCE RANGE NOT ESTABLISHED GFR ESTIMATE 33(L) >90 ML/MIN/1. 73 M2 12/06/2024 2:50 AM [facility] GFR NOTES GFR REFERENCE S: 12/06/2024 2:50 AM [facility] Comment: THE ESTIMATED GFR IS CALCULATED [...] FAILURE: <15 ml/min/1.73 m2 12/06/2024 1:39 AM HOGSHEAD STRIPPER Jesu Duval MD LABORATORY Final Result [facility] [address] [place] [address], [phone] * XR SPEECH SWALLOW SJS ONLY (12/05/2024 9:43 AM HOGSHEAD STRIPPER) Anatomical Region Laterality Modality NA Fluoroscopy 12/05/2024 9:55 AM HOGSHEAD STRIPPER Impressions 12/05/2024 9:58 AM HOGSHEAD STRIPPER IMPRESSION: 1. Impending aspiration thin liquid barium. 2. Minimal laryngeal penetration nectar barium consistency. Ordered By: JESU DUVAL Interpreted By: Juan Alberto Berg MD, 12/05/2024 9:55 AM Narrative 12/05/2024 9:58 AM HOGSHEAD STRIPPER [address] [address] Examination: XR SPEECH SWALLOW SJS ONLY Exam [...] sinus. No evidence of penetration or aspiration. Elmo barium consistency from a cup with a straw demonstrated no evidence of laryngeal penetration or aspiration. With pudding barium consistency from a spoon, there was spillage to the piriform sinus with no evidence of penetration or aspiration. Mild residual within the vallecula. Elmo barium consistency from a cup with a straw demonstrated no evidence of penetration or aspiration. Elmo barium consistency from an open cup demonstrated larger bolus size with minimal laryngeal penetration which mostly ejected. No evidence of significant stasis. Solid cracker barium consistency appeared unremarkable. Elmo barium consistency wash from a cup with a straw demonstrated no evidence of penetration or aspiration. Thin liquid barium from a cup with a straw demonstrated minimal laryngeal penetration without complete ejection consistent with impending aspiration. Thin liquid barium from an open cup demonstrated deep laryngeal penetration without ejection consistent with impending aspiration. Procedure Note Juan Alberto Berg MD - 12/05/[address] [address] Examination: XR SPEECH SWALLOW SJS ONLY Exam [...] sinus. No evidence of penetration or aspiration. Elmo barium consistency from a cup with a straw demonstrated no evidenceof laryngeal penetration or aspiration. With pudding barium consistency from a spoon, there was spillage to thepiriform sinus with no evidence of penetration or aspiration. Mildresidual within the vallecula. Elmo barium consistency from a cup with a straw demonstrated no evidenceof penetration or aspiration. Elmo barium consistency from an open cupdemonstrated larger bolus size with minimal laryngeal penetration whichmostly ejected. No evidence of significant stasis. Solid cracker barium consistency appeared unremarkable. Elmo barium consistency wash from a cup with [...] Final Result * MAGNESIUM (12/05/2024 1:51 AM HOGSHEAD STRIPPER) Only the most recent of4 resultswithin the time period is included. MAGNESIUM 1.7 1.6 - 2.6 MG/DL 12/05/2024 2:13 AM HOGSHEAD STRIPPER [facility] 12/05/2024 1:51 AM HOGSHEAD STRIPPER us Mecca John MD LABORATORY Final Result Performing Organization Address [facility] de Phone Number [facility] [address] [place] [address], [phone] * (ABNORMAL) HEPARIN, ANTI XA, UFH (12/04/2024 5:45 AM HOGSHEAD STRIPPER) Only the most recent of2 resultswithin the time period is included. HEPARIN ANTI XA UFH 0.91(H) 0.30 - 0.70 IU/ML 12/04/2024 6:08 AM HOGSHEAD STRIPPER [facility] Comment: UFH Therapeutic Anti Xa Ranges: Medical Therapeutic Range: 0.30 - 0.70 IU/mL Cardiac Therapeutic Range: 0.30 - 0.50 IU/mL Neuro Therapeutic Range: 0.20 - 0.40 IU/mL 12/04/2024 5:45 AM HOGSHEAD STRIPPER us Mecca John MD LABORATORY Final Result Performing Organization Address [facility] de Phone Number [facility] [address] [place] [address], [phone] * (ABNORMAL) PARTIAL THROMBOPLASTIN TIME,PTT (12/04/2024 5:45 AM HOGSHEAD STRIPPER) Only the most recent of9 resultswithin the time period is included. PTT 71.4(H) 25.1 - 36.5 SEC 12/04/2024 6:16 AM HOGSHEAD STRIPPER [facility] 12/04/2024 5:45 AM HOGSHEAD STRIPPER us Mecca John MD LABORATORY Final Result Performing Organization Address [facility] Co de Phone Number [facility] [address] [place] [address], [phone] * PROCALCITONIN (PCT) (12/02/2024 11:33 PM HOGSHEAD STRIPPER) Procalcitonin 0.06 0.00 - 0.49 NG/ML 12/03/2024 10:23 AM HOGSHEAD STRIPPER [facility] 12/02/2024 11:3 3 PM [employer] us Carlee Martin MD LABORATORY Final Result Performing Organization Address [facility] Co de Phone Number [facility] [address] [place] [address], [phone] * LACTIC ACID (12/02/2024 11:33 PM [employer]) Only the most recent of4 resultswithin the time period is included. LACTIC ACID VENOUS 1.8 0.4 - 2.0 MMOL/L 12/03/2024 12:01 AM [employer] [facility] 12/02/2024 11:3 3 PM [employer] us Carlee Martin MD LABORATORY Final Result Performing Organization Address [facility] Co de Phone Number [facility] [address] [place] [address], [phone] * CULTURE, BACTERIA BLOOD X2 (12/02/2024 6:57 PM [employer]) Pathologist [facility] SPEC DESCRIPTION BLOOD 12/02/19 7:02 PM [employer] [facility] SPECIAL REQUESTS BLOOD-AERO BIC BOTTLE ONLY 12/02/2024 7:02 PM [employer] [facility] CULTURE RESULT NO GROWTH 5 DAYS 12/07/2024 9:25 PM [employer] [facility] BLOOD SPECIMEN OBTAINED FOR BLOOD CULTURE / Unknown 12/02/2024 6:57 PM [employer] 12/02/2024 7:02 PM [employer] Carlos Paz MD MICROBIOLOGY - GENE RAL ORDERABLES Final Result Performing Organization Address City/[facility]/ZIP Co de Phone Number [facility] [address] [place] [address], [phone] * (ABNORMAL) C-REACTIVE PROTEIN (12/02/2024 1:17 AM HOGSHEAD STRIPPER) Only the most recent of3 resultswithin the time period is included. [facility] C-REACTIVE PROTEIN 9.81(H) <0.80 mg/dL 12/02/2024 2:38 AM HOGSHEAD STRIPPER [facility] 12/02/2024 1:17 AM HOGSHEAD STRIPPER Gail Savage MD LABORATORY Final Resul t Performing Organization Address City/[facility]/ZIP Co de Phone Number [facility] [address] [place] [address], [phone] * (ABNORMAL) Blood gas, venous (12/01/2024 4:58 AM HOGSHEAD STRIPPER) Pathologist [facility] PH VENOUS 7.32 7.32 - 7.42 12/01/2024 5:06 AM HOGSHEAD STRIPPER [facility] PCO2 VENOUS 46.9 41.0 - 51.0 MMHG 12/01/2024 5:06 AM [facility] PO2 VENOUS 36.2 25.0 - 40.0 MM HG 12/01/2024 5:06 AM [facility] BICARB VENOUS 23.6(L) 24 - 28 MMOL/L 12/01/2024 5:06 AM [facility] TOTAL CO2 VENOUS 25.1 25.0 - 29.0 MMOL/L 12/01/2024 5:06 AM [facility] BASE DEFICIT VENOUS 2.1 0.0 - 3.0 MMOL/L 12/01/2024 5:06 AM [facility] O2 SAT VENOUS 59 <75 % 12/01/2024 5:06 AM [facility] 12/01/2024 4:58 AM HOGSHEAD STRIPPER us Carlee Martin MD LABORATORY Final Result [facility] [address] [place] [address], [phone] * PHOSPHORUS, INORGANIC PHOSPHATE (12/01/2024 4:58 AM HOGSHEAD STRIPPER) [facility] PHOSPHORUS 3.8 2.5 - 4.9 MG/DL 12/01/2024 5:38 AM HOGSHEAD STRIPPER [facility] 12/01/2024 4:58 AM HOGSHEAD STRIPPER us Carlee Martin MD LABORATORY Final Result [facility] [address] [place] [address], [place] [phone] * CT HEAD WO CON (11/30/2024 11:05 PM HOGSHEAD STRIPPER) Anatomical Region Laterality Modality Head Computed Tomogra phy 11/30/2024 11:4 0 PM HOGSHEAD STRIPPER Impressions 11/30/2024 11:45 PM HOGSHEAD STRIPPER IMPRESSION: 1. Asymmetry of the partially included [...] 11/30/2024 11:40 PM Narrative 11/30/2024 11:45 PM HOGSHEAD STRIPPER [place] [address] EXAMINATION: CT Head without Contrast, Axial Imaging [...] uncertain etiology and significance. Procedure Note Ana Hakcett MD - 11/30/[address] [address] EXAMINATION: CT Head without Contrast, Axial Imaging [...] By: Ana Hackett MD, 11/30/2024 11:40 PM us Blu N Ahmed MD CT Final Result * (ABNORMAL) VITAMIN B1 THIAMINE (PLASMA) (11/30/2024 4:39 PM HOGSHEAD STRIPPER) Pathologist [facility] VITAMIN B1 S/P/B 64(H) 8 - 30 nmol/L 12/07/2024 1:43 PM HOGSHEAD STRIPPER [facility] ESTELA WILLIE Comment: Vitamin supplementation within 24 hours prior to blood draw may affect the accuracy of the results. This test was developed and its analytical performance characteristics have been determined by [employer] [place], [place]. It has not been cleared or approved by the U.S. Food and Drug Administration. This assay has been validated pursuant to the CLIA regulations and is used for clinical purposes. Test Performed by [facility], [facility], [address] [place] [address] Melo Huertas M.D., Ph.D., Director of Laboratories , CLIA [id number] 11/30/2024 4:39 PM HOGSHEAD STRIPPER Tawana Bell [facility] LABORATORY Final Result Performing Organization Address City/[facility]/ZIP Co de Phone Number [facility] [address] , [place] [phone] * THYROID STIM HORMONE, TSH (11/30/2024 4:39 PM HOGSHEAD STRIPPER) Pathologist [facility] TSH 3.560 0.358 - 3.740 uIU/ML 11/30/2024 5:31 PM HOGSHEAD STRIPPER [facility] Comment: ASSAY PERFORMED BY CHEMILUMINESCENCE METHODOLOGY USING SIEMENS DIMENSION VISTA REAGENT. PATIENT RESULTS DETERMINED BY ASSAYS USING DIFFERENT MANUFACTURERS FOR METHODS MAY NOT BE COMPARABLE. 11/30/2024 4:39 PM HOGSHEAD STRIPPER Tawana Bell [facility] LABORATORY Final Result [facility] [address] [place] [address], [place] [phone] * LIPID PANEL (12/27/2023 7:08 AM HOGSHEAD STRIPPER) CHOLESTEROL 131 MG/DL 12/27/2023 8:36 AM [facility] Comment:DESIRABLE: <200 TRIGLYCERIDES 124 MG/DL 12/27/2023 8:36 AM [facility] Comment:<150 NORMAL HDL 54 >39 MG/DL 12/27/2023 8:36 AM [facility] LDL (CALCULATED) 52 MG/DL 12/27/19 8:36 AM [facility] Comment:<100 OPTIMAL VLDL CALCULATION 25 MG/DL 12/27/19 8:36 AM [facility] Comment:REFERENCE RANGE NOT ESTABLISHED CHOL/HDL RATIO 2.4 12/27/2023 8:36 AM [facility] Comment:REFERENCE RANGE NOT ESTABLISHED LDL/HDL 1.0 12/27/2023 8:36 AM [facility] Comment:REFERENCE RANGE NOT ESTABLISHED NON HDL CHOLESTEROL 77 MG/DL 12/27/2023 8:36 AM [facility] Comment:REFERENCE RANGE NOT ESTABLISHED 12/27/2023 7:08 AM HOGSHEAD STRIPPER Arline Calixto MD LABORATORY Final Res ult [facility] [address] [place] [address], [phone] from Last 3 Months or Most Recently Relevant to Health Maintenance Insurance MEDICARE Advance Directives Documents on File Type Date Recorded Patient Supervisor Contact And Service Clerks Expl anation Advance Directives and Living Will [...] 4:13 PM 12/31/2022 7:27 PM Care Teams Damascener Relationship Specialty Start Date End Date Kahlil Peres MD [address] [place] [address] PCP - General FAMILY PRACTICE 11/30/24 Emeka Garcia MD [address] [place] [address] Consulting Physician CLINICAL CARDIAC ELECTROPHYSIOLOGY 03/30/23 Viv Seo MD [address] [place], [place] [phone] Consulting Physician CARDIOVASCULAR DISEASE 05/11/24
--- OUTSIDE RECORDS SUMMARY | 2024-12-31 18:43 | XMS_ITS | Encounter Summary ---
Author Organization [facility] Address [facility] [place] [address] Care Team Providers Care Patient Care Director Name Role Phone Emeka Garcia MD Unavailable [phone] New Referring, Provider Primary Care Provider Un available Anne Kendrick MD Primary Care Provider [phone] Viv Seo MD Unavailable Kahlil Peres MD Primary Care Provider [phone] Encounter Details Date Type Department Care Team (Latest Contact Info) Description 10/02/2023 Hospital Encounter Tyler Bennett MD [address] [phone] Social History Tobacco Use Types Packs/Day Years Used Date Smoking Tobacco: Never Smokeless Tobacco: Never Alcohol Use Standard Drinks/Week Comments Yes 16.7 (1 standard drink = 0.6 oz pure alcohol) [facility] Utilities Answer Date Recorded In the past 12 months has e electric, gas, oil, or water [employer] threatened to shut off services in your [...] in a fdc (including now)? No 12/27/2023 Housing Stability Vital Sign Answer Varinder e Recorded In the last 12 months, was t here a time when you were not able to pay the mortgage or rent on time? No 11/30/2024 In the past 12 months, how m any times have you moved where you were living? 1 11/30/2024 At any time in the past 12 m [facility], were you homeless or living in a fdc (including now)? Patient unable to answer 11/30/2024 Sex and Gender Information Value Date Recorded Sex Assigned at Male 12/04/2024 9:12 AM [employer]OR [employer] Legal Sex Male 5:48 PM [employer] Gender Identity Not on file Sexual Orientation Not on file documented as of this encounter Functional Status * Question Answer Date of Assessment Author Status Do you have serious difficulty walking or climbing stairs? Yes 11/30/2024 6:47 PM [employer] Ella Burch RN Act claudia * Question [...] Description 03/13/2025 11:00 AM CDT Office Visit [facility] [place] [address] [place] [address] Emeka Garcia MD [address] [place], [place] [address] 05/15/2025 8:30 AM CDT [place]ment [place] [address] [place] [address] Viv Seo MD [address] [place] [phone] 05/20/2025 2:45 PM CDT Office Visit [facility] [place] [address] [place] [address] Viv Seo MD [address] [place], [place] [phone] documented as of this encounter Goals Goal [...] Rule Out 12/19/2023 12/19/2023 12/19/2023 6:05 AM [employer] COVID-19 Rule Out 12/26/2023 12/26/2023 12/26/2023 5:39 PM [employer] documented as of this encounter Care Teams Patient Care Director Relationship Specialty Start Date End Date New Referring, Provider PCP - General UNKNOWN PHYSICIAN SPECIALTY 10/02/23 10/04/23 Anne Kendrick MD [address] [place] [address] PCP - General FAMILY PRACTICE 10/05/23 11/29/24 Kahill Peres MD [address] [place] [address] PCP - General FAMILY PRACTICE 11/30/24 Emeka Garcia MD [address] [place] [phone] Consulting Physician CLINICAL CARDIAC ELECTROPHYSIOLOGY 03/30/23 Viv Seo MD [address] [place], [place] [phone] Consulting Physician CARDIOVASCULAR DISEASE 05/11/24 documented as of this encounter
--- OUTSIDE RECORDS SUMMARY | 2024-12-31 18:43 | XMS_ITS ---
Author Organization Cardiology Physician [facility] Address [address] [facility] [address] [place], [place] [address] Care Team Providers Care Business Support Professional Name Role Phone ALICE FALCON Unavailable [phone] Migration, Provider Unavailable Unavailable Allergies Allergen (clinical drug ingredient) Drug/Non Drug Allergy documented on EMR Reaction Allergy Type Onset Date Status Magnesium Unknown Drug Allergy 05/26/2022 Active REASON FOR VISIT EMR-Nando Medications Medication SIG (Take, Route, Frequency, Duration) Notes Start Date End Date Status FENOFIBRATE MICRONIZED 48 MG TABLET *Reorder from [email or web address] for eRx and Interaction Alerts* 05/26/2022 Active [...] Encounters Encounter Location Date Provider Diagnosis Cardiology [facility] [address] [facility] [place], [place] [id number] 08/07/2023 Provider Migration Plan Of Treatment No Information Progress Notes * TERRI SALDIVAR RDOB: 5 (69 yo M)Acc No.[id number]:08/07/2023 Patient: Zach TERRI GOODEN :1955 A ge:68 Y S ex:Male Address:[facility] [employer] [facility], [place], [address] Subjective: * Chief Complaints: * E Cleopatra * Medical History: * Surgical History: B iopsy of lung (17189464) RIGHT Procedure on shoulder (023475047) [employer] LEFT SHOULDER SEPARATION Colonoscopy 03/25/2013Percutaneous transluminal coronary angioplasty (81520110) STENT TO LAD -CARDIAC CATH 2 STENTS [...] TABLET , Notes to Pharmacist: *Reorder from [facility] for eRx and Interaction Alerts*Taking Allopurinol 100 [...] TABLET , Notes to Pharmacist: *[facility] Interaction Alert[facility]* * Allergies: Noris agnesium: Allergy - Onset Date 05/26/2022 Objective: * Vitals: * Physical Examination: Assessment: Plan: * Treatment: * Procedure Codes: * * Date:
[2024-12-31 20:22] LABS: Anion Gap 10 mmol/L (4-12); Blood Urea Nitrogen 29 mg/dL (7-18); Calcium 9.2 mg/dL (8.5-10.1); Carbon Dioxide 27 mmol/L (21-32); Chloride 103 mmol/L (98-108); Estimated Glomerular Filt Rate 32; Glucose 125 mg/dL (70-99); Osmolality Calculated 296 mOsm/kg (285-295); Potassium 4.7 mmol/L (3.5-5.1); Sodium 140 mmol/L (136-145)
[2024-12-31 20:23] LABS: Creatine Kinase > 1000 U/L (39-308)
[2024-12-31 22:08] LABS: Add Urine Microscopic? NO; Appearance Urine Clear (Clear); Bilirubin Urine Negative (Negative); Blood Urine Negative (Negative); Color Urine Light Yellow (Yellow); Glucose Urine UA Negative (Negative); Ketones Urine Negative (Negative); Leukocyte Esterase Ur Negative LEU/UL (Negative); Nitrate Urine Negative (Negative); Protein Urine Negative (Negative); Specific Grav Ur 1.015 (1.010-1.020); Urobilinogen Urine 0.2 mg/dL (0.2-1.0); pH Urine 5.5 (5.0-8.0)
== END 2024-12-31 18:39 | disposition home or self-care (01) ==
LOC: CHSLAB 18:41
PROVIDERS: PCP Family Medicine; Visit Provider Family Medicine
DX: I50.33 Acute on chronic diastolic (congestive) heart failure (principal); G93.41 Metabolic encephalopathy
CPT/HCPCS: 36415; 80048; 81003; 82550

== ENCOUNTER 2025-03-06 05:15 | Observation (INO) | payer MEDICARE, SELFPAY ==
[2025-03-06] VITALS (43 sets, daily range): BP systolic 123–167; BP diastolic 60–93; PULSE 80–135; RESP 16–42; TEMP 36.3–37.1; O2SAT 90–100; BMI 25.9
--- NOTE | ~2025-03-06 | XR_ITS ---
Portable chest x-ray Comparison: 11/06/2024 Clinical History: CHF Findings: There is linear atelectasis or scarring left lung base. Right lung clear. Cardiomediastin al silhouette is stable. Bones and soft tissues are unremarkable. Impression: Linear atelectasis or scarring left lung base, otherwise clear lungs. Reviewed, dictated and finalized at location . Impression: Linear atelectasis or scarring left lung base, otherwise clear lungs.
--- NOTE | 2025-03-06 05:17 | PC.NURSE ---
NOTIFIED DR STEPHENS THAT PATIENT WAS HERE
--- NOTE | 2025-03-06 05:18 | ECG_ITS ---
Test Date: 2025-03-06 05:19:59 Measurements Intervals [place] Rate: 128 P: 0 IA: 0 QRS: -47 QRSD: 101 T: 80 QT: 303 QTc: 442 Interpretive Statements ATRIAL FIBRILLATION WITH RAPID VENTRICULAR RESPONSE LEFT AXIS DEVIATION PATTERN CONSISTENT WITH PULMONARY DISEASE ANTEROSEPTAL INFARCT, AGE INDETERMINATE INFERIOR INFARCT, AGE INDETERMINATE BORDERLINE ST-T WAVE ABNORMALITY- HIGH LATERAL LEADS BASELINE ARTIFACT- I, II, III, AVR, AVL, AVF, V1-V6 ABNORMAL ECG Compared to ECG 10/23/2024 16:15:15 HEART RATE HAS INCREASED Electronically Signed On 03-06-2025 06:40:46 CDT by Adalid Chanel D.O.
--- OUTSIDE RECORDS SUMMARY | 2025-03-06 05:18 | XMS_ITS | Patient Health Record ---
Author Organization Cardiology Physician [facility] Address [address] [facility] [address] [place], [place] [address] Care Team Providers Care Marine Engineering Professor Name Role Phone ALICE FALCON Unavailable [phone] Reason For Referral No Information Medications Medication SIG (Take, Route, Frequency, Duration) Notes Start Date End Date Status Eliquis 5 MG Oral 05/26/2022 Active FENOFIBRATE MICRONIZED 48 MG TABLET *Reorder from [employer] for eRx and Interaction Alerts* 05/26/2022 Active [...] Status W/U Status Risk Notes Problem Hypothyroidism (81453869) Hypothyroidism, unspecified (E03.9) 03/26/20 22 Active confirmed Problem Angina pectoris (609504054) Angina pectoris, unspecified (I20.9) 03/26/20 22 Active confirmed Problem Atherosclerotic heart disease of [place] coronary artery without angina pectoris (169248416360192) Atherosclerotic heart disease of [place] coronary artery without angina pectoris (I25.10) 05/26/20 22 Active confirmed Problem Chronic atrial fibrillation (700696718) Chronic atrial fibrillation (I48.2) 07/03/20 19 Active confirmed Problem Peripheral vascular disease (874026994) Peripheral vascular disease, unspecified (I73.9) 05/26/20 22 Active confirmed Problem Dyspnea (880114163) Dyspnea, unspecified (R06.00) 03/26/20 22 Active confirmed Problem Tremor (31544665) Tremor, unspecified (R25.1) 01/17/20 20 Active confirmed Problem Long-term current use of drug therapy (558989263) Other fci (current) drug therapy (Z79.899) 03/26/20 22 Active confirmed Problem Mixed hyperlipidemia (798615352) Mixed hyperlipidemia (E78.2) 05/26/20 22 Active confirmed Problem Essential hypertension (51034310) Essential (primary) hypertension (I10) 06/09/20 23 Active confirmed Problem Mitral valve disorder (58791170) Nonrheumatic mitral (valve) insufficiency (I34.0) 03/26/20 22 Active confirmed Problem Atrial fibrillation (88060917) Unspecified atrial fibrillation (I48.91) 05/26/20 22 Active confirmed Plan Of Treatment No Information Insurance Providers Payer Name Payer Address Payer Phone Subscriber Number Group Number Insured Name Patient Relationship to Insured Coverage Start Date Coverage End Date Medicare Part B [address] [place] [id number] TERRI SALDIVAR Self - patient is the insured Medical (General) History Surgical History Surgery Date(Month/Year) Biopsy of lung (34568669) RIGHT Procedure on shoulder (83451 3003) [employer] LEFT SHOULDER SEPARATION Colonoscopy 03/25/2013 Percutaneous transluminal co ronary angioplasty (66439692) STENT TO LAD -CARDIAC CATH 2 STENTS 08/21/2012
--- OUTSIDE RECORDS SUMMARY | 2025-03-06 05:18 | XMS_ITS | Encounter Summary ---
Author Organization [facility] Address [address] [place] [address] Care Team Providers Care Paving Bed Maker Name Role Phone Emeka Garcia MD Unavailable [phone] Anne Kendrick MD Primary Care Provider [phone] Viv Seo MD Unavailable Kahlil Peres MD Primary Care Provider [phone] Encounter Details Date Type Department Care Team (Late st Contact Info) Description 01/02/2024 Hospital Follow-up Call [facility] [address] [place] [address] Dipika Moseley, RN Social History Tobacco Use Types Packs/Day Years Used Date Smoking Tobacco: Never Smokeless Tobacco: Never Alcohol Use Standard Drinks/Week Comments Yes 0 (1 standard drink = 0.6 oz pur e alcohol) [facility] Utilities Answer Date Recorded In the past 12 months has e [employer], gas, oil, or water [employer] threatened to shut off services in your [...] place to sleep or slept in a half-way (including now)? No 12/27/2023 Sex and Gender Information Value Date Recorded Sex Assigned at Male 12/04/2024 9:12 AM TASSEL CLIPPER Legal Sex Male 5:48 PM TASSEL CLIPPER Gender Identity Not on file Sexual Orientation [...] Care Team (Late st Contact Info) Description 05/01/2025 12:30 PM CDT Office Visit [facility] [address] [place] [address] Melany Oseguera PA-C [address] [place] [phone] 05/15/2025 8:30 AM CDT [place]ment [place] [address] [place] [address] Viv Seo MD [address] [place] [phone] 05/20/2025 2:45 PM CDT Office Visit [facility] [place] [address] [place] [address] Viv Seo MD [address] [place] [phone] documented as of this encounter Goals Goal Patient Goal Type Associated Problems Recent Progress Patient-Stated? Author Patient will return to prior living situation and remain independent in ADLs upon discharge from hospital Lifestyle Vicky Moreira RN documented as of this encounter Visit Diagnoses Not on filedocumented in this encounter Care Teams Paving Bed Maker Relationship Specialty Start Date End Date Anne Kendrick MD [address] [place] [address] [place] [phone] PCP - General FAMILY PRACTICE 10/05/23 11/29/24 Kahlil Peres MD [address] [place] [address] [phone] PCP - General FAMILY PRACTICE 11/30/24 Emeka Garcia MD [address] [place] [phone] Consulting Physician CLINICAL CARDIAC ELECTROPHYSIOLOGY 03/30/23 Viv Seo MD [address] [place] [phone] Consulting Physician CARDIOVASCULAR DISEASE 05/11/24 documented as of this encounter
--- OUTSIDE RECORDS SUMMARY | 2025-03-06 05:18 | XMS_ITS | Data Portability ---
Author Organization [place] [facility] [place], Main Office Address [address] [place] [address] Care Team Providers Care Youth Services Librarian Name Role Phone GRIFFIN FAGAN Primary Care Provider GRIFFIN FAGAN Referring Provider [phone] Assessment Encounter Date Assessment Date Assessment LastModified [...] lear antibodi es) screen, serum 2015 016 [facility], [address], [address], [place], [address], 6 10:12:57 protein electrop horesis, 24-hr urine 2015 016 [facility], [address], [address], [place], [address], 6 10:12:57 rf (rheumat oid factor), titer, serum 2015 016 [facility], [address], [address], [place], [address], 6 10:12:57 CK (creatin e kinase) mb/CK total, ratio, serum (OBS) 2015 016 [facility], [address], [address], [place], [address], 6 10:12:57 vitamin B1 (thiamin e), serum 2015 016 [facility], [address], [address], [place], [address], 6 10:12:57 vitamin B6 (pyridox ine), plasma 2015 016 [facility], [address], [address], [place], [address], 6 10:12:58 CMP, serum or plasma 2015 016 [place] [address] [facility], [address], [address], [place], [address], 6 10:12:58 CBC 2015 016 [facility], [address], [address], [place], [address], 6 10:12:58 HbA1c (hemoglo bin A1c), blood 2015 016 [facility], [address], [address], [place], [address], 6 10:12:58 vitamin B12 + folate, serum or blood 2015 016 [facility], [address], [address], [place], [address], 6 10:12:58 Referral vestibul ar therapy referral - Likely [facility] (Please re-sched ule) [address] [facility], [address], [address], [place], [address], 6 15:34:28 vestibul ar therapy referral - Likely [facility] 2015 016 [facility], [address], [address], [place], [address], 6 12:41:29 Procedures None recorded . Surgeries None recorded . Imaging electrom yogram/n erve conducti on study 2015 Carly Moreno MD, [address], [place], [address], 6 14:25:32 electrom yogram/n erve conducti on study 2015 016 DARRYL Mateo Moreno MD, [address], [place], [address], 6 09:44:16 MRI, brain 2015 016 [email or web address] [facility] [address], [place], [address], 6 09:19:50 Medication Orders None recorded . Patient TargetsNo targets recorded. Patient Instructions Encounter Date Encounter Id Patient Instructions Last Modified By Organization Details Last Modified Time 12/08/2015 [id number] learning about a closed head injury Not available 12/09/2015 09:20:23 12/31/2015 [id number] learning about a closed head injury Not available 01/01/2016 11:30:04 learning about a n ischemic stroke Not available 01/01/2016 11:30:04 04/13/2016 [id number] learning about a closed head injury Not available 04/13/2016 15:24:44 learning about a n ischemic stroke Not available 04/13/2016 15:24:43 08/06/2016 [id number] learning about a n ischemic stroke Not [...] Available Mateo Moreno MD [address], [place], [address], 12/31/2015 12:57:22 12/31/19 16 12/31/2015 elect romyo gram/ nerve condu ction study Nerve Conduction Study 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 Not Available Mateo Moreno MD [address], [place], [address], 12/31/2015 12:57:22 12/08/19 16 12/09/2015 elect romyo gram/ nerve condu ction study EMG Not Available Mateo Moreno MD [address], [place], [address], 12/08/2015 14:13:17 12/08/19 16 12/09/2015 elect romyo gram/ nerve condu ction study Nerve Conduction Study Not Available Caren Moreno MD [address], [place], [address], 12/08/2015 14:13:17 04/09/20 16 04/14/2016 CMP, serum or plasm a glucose 113 mg/dL 65-99 high Fasti ng refer ence inter teresa Not Available [facility] [place] [facility] [address], [place], [address], 04/14/2016 15:28:14 04/09/20 16 04/14/2016 CMP, serum or plasm a urea nitrogen (BUN) 19 mg/dL 7-25 normal Not Available [facility] [place] [facility] [address], [place], [address], 04/14/2016 15:28:14 04/09/20 16 04/14/2016 CMP, serum or plasm a creatinine 1.17 mg/dL 0.70-1 .25 normal For patie nts >49 years of age, the refer ence limit for Creat inine is appro ximat diogenes 13% highe r for peopl e ident ified as Afric an-Am ilan n. Not Available [facility] [place] [facility] [address], [place], [address], 04/14/2016 15:28:14 04/09/20 16 04/14/2016 CMP, serum or plasm a eGFR non-afr. cuban 67 mL/mi n/1.7 3m2 > or = 60 normal Not Available [facility] [address], [place], [address], 04/14/2016 15:28:14 04/09/20 16 04/14/2016 CMP, serum or plasm a eGFR 78 mL/mi n/1.7 3m2 > or = 60 normal Not Available [facility] [address], [place], [address], 04/14/2016 15:28:14 04/09/20 16 04/14/2016 CMP, serum or plasm a BUN/creatini ne ratio NOT APPLIC ABLE (calc ) 6-22 Not Available [facility] [address], [place], [address], 04/14/2016 15:28:14 04/09/20 16 04/14/2016 CMP, serum or plasm a sodium 138 mmol/ L 135-14 6 normal Not Available [facility] [address], [place], [address], 04/14/2016 15:28:14 04/09/20 16 04/14/2016 CMP, serum or plasm a potassium 4.7 mmol/ L 3.5-5. 3 normal Not Available [facility] [address], [place], [address], 04/14/2016 15:28:14 04/09/20 16 04/14/2016 CMP, serum or plasm a chloride 105 mmol/ L 98-110 normal Not Available [facility] [address], [place], [address], 04/14/2016 15:28:14 04/09/20 16 04/14/2016 CMP, serum or plasm a carbon dioxide 26 mmol/ L 19-30 normal Not Available [facility] [address], [place], [address], 04/14/2016 15:28:14 04/09/20 16 04/14/2016 CMP, serum or plasm a calcium 9.5 mg/dL 8.6-10 .3 normal Not Available [facility] [address], [place], [address], 04/14/2016 15:28:14 04/09/20 16 04/14/2016 CMP, serum or plasm a protein, total 7.0 g/dL 6.1-8. 1 normal Not Available [facility] [address], [place], [address], 04/14/2016 15:28:14 04/09/20 16 04/14/2016 CMP, serum or plasm a albumin 3.8 g/dL 3.6-5. 1 normal Not Available [facility] [address], [place], [address], 04/14/2016 15:28:14 04/09/20 16 04/14/2016 CMP, serum or plasm a globulin 3.2 g/dL_ (calc ) 1.9-3. 7 normal Not Available [facility] [address], [place], [address], 04/14/2016 15:28:14 04/09/20 16 04/14/2016 CMP, serum or plasm a albumin/glob ulin ratio 1.2 (calc ) 1.0-2. 5 normal Not Available [facility] [address], [place], [address], 04/14/2016 15:28:14 04/09/20 16 04/14/2016 CMP, serum or plasm a bilirubin, total 0.7 mg/dL 0.2-1. 2 normal Not Available [facility] [place] [address], [place], [address], 04/14/2016 15:28:14 04/09/20 16 04/14/2016 CMP, serum or plasm a alkaline phosphatase 62 U/L 40-115 normal Not Available [facility] [place] [facility] [address], [place], [address], 04/14/2016 15:28:14 04/09/20 16 04/14/2016 CMP, serum or plasm a AST 39 U/L 10-35 high Not Available [facility] [place] [facility] [address], [place], [address], 04/14/2016 15:28:14 04/09/20 16 04/14/2016 HbA1c (hemo [...] hernadez for the prese nce of diabe ancho <5.7% Consi stent with the absen ce [...] child geovanny. Not Available [facility] [place] [facility] [address], [place], [address], 04/14/2016 15:28:15 04/09/20 16 04/14/2016 CK (crea mynor kinas e), total , serum creatine kinase, total 128 U/L 44-196 normal Not Available [facility] [address], [place], [address], 04/14/2016 15:28:15 04/09/20 16 04/14/2016 vitam in B1 (thia mine) , blood vitamin B1 (thiamine), blood, lc/MS/MS 116 nmol/ L 78-185 Not Available [facility] [address], [place], [address], 04/14/2016 15:28:15 04/09/20 16 04/14/2016 vitam in B6 (pyri doxin e), plasm a vitamin B6 10.3 NG/mL 2.1-21 .7 Not Available [facility] [address], [place], [address], 04/14/2016 15:28:16 04/09/20 16 04/14/2016 CBC white blood cell count 6.1 thous and/u L 3.8-10 .8 normal Not Available [facility] [address], [place], [address], 04/14/2016 15:28:16 04/09/20 16 04/14/2016 CBC red blood cell count 4.38 caroline on/uL 4.20-5 .80 normal Not Available [facility] [address], [place], [address], 04/14/2016 15:28:16 04/09/20 16 04/14/2016 CBC hemoglobin 14.5 g/dL 13.2-1 7.1 normal Not Available [facility] [address], [place], [address], 04/14/2016 15:28:16 04/09/20 16 04/14/2016 CBC hematocrit 44.6 % 38.5-5 0.0 normal Not Available [facility] [place] [facility] [address], [place], [address], 04/14/2016 15:28:16 04/09/20 16 04/14/2016 CBC MCV 101.8 fL 80.0-1 00.0 high Not Available [facility] [address], [place], [address], 04/14/2016 15:28:16 04/09/20 16 04/14/2016 CBC MCH 33.2 pg 27.0-3 3.0 high Not Available [facility] [address], [place], [address], 04/14/2016 15:28:16 04/09/20 16 04/14/2016 CBC MCHC 32.6 g/dL 32.0-3 6.0 normal Not Available [facility] [address], [place], [address], 04/14/2016 15:28:16 04/09/20 16 04/14/2016 CBC RDW 14.3 % 11.0-1 5.0 normal Not Available [facility] [address], [place], [address], 04/14/2016 15:28:16 04/09/20 16 04/14/2016 CBC platelet count 167 thous and/u L 140-40 0 normal Not Available [facility] [address], [place], [address], 04/14/2016 15:28:16 04/09/20 16 04/14/2016 CBC MPV 8.4 fL 7.5-11 .5 normal Not Available [facility] [address], [place], [address], 04/14/2016 15:28:16 04/09/20 16 04/14/2016 vitam in [...] sympt oms. Not Available [facility] [place] [facility] [address], [place], [address], 04/14/2016 15:28:16 04/09/20 16 04/14/2016 vitam in B12 + folat e, serum or blood folate, serum 7.4 NG/mL normal Refer ence Range Low: <3.4 Borde rline : 3.4-5 .4 Lyn l: >5.4 Not Available [facility] [place] [facility] [address], [place], [address], 04/14/2016 15:28:16 04/09/20 16 04/14/2016 HILL (anti nucle ar antib odies ) scree n, serum anachoice(R) screen NEGATI VE negati ve normal A negat claudia ANAch oice( R) indic ates the absen ce of detec table antib odies to compo nent johanna nacho consi sting of dsDNA , Chrom atin, CTO, Sm/RN P, Sm, SSA, SSB, Rose-1, Centr [...] cirrh osis. Not Available [facility] [place] [facility] [address], [place], [address], 04/14/2016 15:28:17 04/09/20 16 04/14/2016 rf (rheu matoi d facto r), serum rheumatoid factor 7 IU/mL <14 normal Not Available [facility] [place] [facility] [address], [place], [address], 04/14/2016 15:28:17 04/10/20 16 04/14/2016 prote in elect ropho resis , 24-hr urine creatinine, 24 hour urine 1.71 g/24_ h 0.63-2 .50 normal Not Available [facility] [place] [facility] [address], [place], [address], 04/14/2016 17:59:19 04/10/20 16 04/14/2016 [facility] , [facility]-hr urine protein/crea tinine ratio 1175 mg/g_ creat < or = 84 high Not Available [facility] [place] [facility] [address], [place], [address], 04/14/2016 17:59:19 04/10/20 16 04/14/2016 prote [facility] , 24-hr urine protein, total, 24 HR ur 2010 mg/24 _h <150 high Not Available [facility] [place] [facility] [address], [place], [address], 04/14/2016 17:59:19 04/10/20 16 04/14/2016 prote in elect [facility] , 24-hr urine albumin 77 % Not Available [facility] [place] [facility] [address], [place], [address], 04/14/2016 17:59:19 04/10/20 16 04/14/2016 [facility] , 24-hr urine xvjox-1-ahae ulins 4 % Not Available [facility] [place] [facility] [address], [place], [address], 04/14/2016 17:59:19 04/10/20 16 04/14/2016 prote in elect [facility] , 24-hr urine qvavv-1-vgvk ulins 4 % Not Available [facility] [place] [facility] [address], [place], [address], 04/14/2016 17:59:19 04/10/20 16 04/14/2016 prote in [facility] , 24-hr urine beta globulins 9 % Not Available [facility] [place] [facility] [address], [place], [address], 04/14/2016 17:59:19 04/10/20 16 04/14/2016 prote in [facility] , 24-hr urine gamma globulins 6 % Not Available [facility] [place] [facility] [address], [place], [address], 04/14/2016 17:59:19 04/10/20 16 04/14/2016 prote in [facility] , 24-hr urine interpretati on Patte rn consi stent with glome rular prote inuri a. Not Available [facility] [place] [facility] [address], [place], [address], 04/14/2016 17:59:19 01/01/20 16 01/01/2016 elect romyo gram/ nerve condu ction study No observ ation record ed. BARCODE Not Available 2015 09:45:31 Result Notes None recorded. Problems Name Problem SNOMED Code Status Onset Date Resolution Date Notes Provider Name and Address Organization Details Recorded Time Abnormal gait [id number] Fernando Moreno MD [address] [place] [address], [address] , [facility] 6 14:14:19 Closed injury of head [id number] Fernando Moreno MD [address] [place] [address], [address] , [facility] 6 14:14:19 Peripheral nerve disease 820202188 Fernando Moreno MD [address] [place], [address] , [facility] [place] 6 14:14:19 Vertigo 717423121 Active Mateo Moreno MD [address] [place], [address] , [facility] 6 14:14:19 Ischemic stroke 871350889 Active Mateo Moreno MD [address] [place], [address] , [facility] 6 14:14:19 Problem Notes None recorded. [...] Name and Address Organization Details Recorded Time 80046 magnesium medicatio n Not available Not available [...] Updated DateTime 6 28.3 kg/m2 77 /min 02065.6 9689 g 177.8 cm 136 mm[Hg] 82 mm[Hg] [facility] 6 13:33:50 Date Recorded Body height Body mass index (BMI) Heart rate Body weight Systolic blood pressure Diastolic blood pressure Provider Name and Address Organization Details Last Updated DateTime 6 177.8 cm 27.7 kg/m2 85 /min 83789.3 2741 g 134 mm[Hg] 76 mm[Hg] [facility] 6 12:07:17 Date Recorded Body height Body weight Heart rate Body mass index (BMI) Systolic blood pressure Diastolic blood pressure Provider Name and Address Organization Details Last Updated DateTime 6 177.8 cm 23138.4 0371 g 74 /min 26.3 kg/m2 136 mm[Hg] 80 mm[Hg] [facility] 6 13:21:58 Date Recorded Body height Heart rate Body weight Body mass index (BMI) Systolic blood pressure Diastolic blood pressure Provider Name and Address Organization Details Last Updated DateTime 6 177.8 cm 86 /min 85766.9 6 g 27.1 kg/m2 158 mm[Hg] 84 mm[Hg] [facility] 6 13:06:18 Social History Question Answer Notes LastModified by Organizat ion Details LastModified Time Tobacco Smoking Status Never Smoker Not Available [facility] 09/23/2020 03:28:46 What Is Your Level Of Alcohol Consumption? Heavy [id number] Information not available 09/23/2020 What Is Your Level Of Caffeine Consumption? None [id number] Information not available 09/23/2020 How Much Tobacco Do You Chew? None [id number] Information not available 09/23/2020 What Type Of Diet Are You Following? REGULAR [id number] Information not available 09/23/2020 Which Illicit Or Recreational Drugs Have You Used? No [id number] Information not available 09/23/2020 Family History Of Heart Disease? Yes Information not available 12/01/2015 Which Of Your Hands Is Dominant? Right [id number] Information not available 09/23/2020 High Blood Pressure Yes Information not available 12/01/2015 Live Alone Or With Others? With Others Information not available 12/01/2015 How Much Tobacco Do You Smoke? No [id number] Information not available 09/23/2020 Sex: Unknown Functional Status Question Answer Note LastModified by [place] [facility] ion Details LastModified Time What is your exercise level? Occasional [id number] Information not available 09/23/2020 Mental Status None recorded. Family History Nothing Reported. Medical History Condition Response Coronary Artery Disease N Hyperthyroidism N Head Trauma/Injury N Tremors Y Depression N Glaucoma N Hypothyroidism N Bipolar N Weakness in extremities Y Pacemaker N Injury to eyes N Loss of taste N TIA N Orthopedic Problems N Balance issues N Headaches/Migraines N Paralysis N Blurred vision N Obstructive Sleep Apnea [...] ears N Black Outs N Heart Attack (AL) N Loss of vision N Diabetes N [...] SNOMED-CT Code Diagnosis ICD10 Code Diagnosis Note [id number] Mateo Moreno MD Main Office [address] [place] [address] 12/08/2015 12:23:07 12/08/2015 14:41:29 Abnormal gait 09247085 R26.9 Closed injury of head 45 70626606 06 S09.90XS Peripheral nerve disease 226480167 G64 [id number] Mateo Moreno MD Main Office [address] [place] [address] 12/31/2015 11:34:44 12/31/2015 14:25:32 Abnormal gait 16657422 R26.9 Peripheral nerve disease 484429757 G64 E53.8 E11.40 Closed injury of head 45 36991702 06 S09.90XS Vertigo 092647941 R42 Ischemic stroke 91226687 2 I63.9 [id number] Mateo Moreno MD Main Office [address] [place] [address] 04/13/2016 12:44:27 04/13/2016 14:35:06 Vertigo 316657685 R42 Ischemic stroke 55198739 2 I63.9 Abnormal gait 09978558 R 26.9 Peripheral nerve disease 945990284 G64 E53.8 E11.40 Closed injury of head 45 73164937 06 S09.90XS [id number] Mateo Moreno MD Main Office [address] [place] [address] 08/06/2016 12:43:06 08/06/2016 14:32:43 Abnormal gait 98648815 R26.9 Peripheral nerve disease 537416892 G64 E53.8 E11.40 Vertigo 962454468 R42 Ischemic stroke 47990182 2 I63.9 Health Concerns Section Related Observation LastModified by Organization Detai ls LastModified Time None Recorded Concern Status LastModified by Organization Details LastModified Time None Recorded Advance Directives Directive None Recorded Payers Encounter Date Sequence Insurance Name Policy Number Policy Diggs Covered Member ID Diggs Member ID Guarantor Name 12/08/2015 1 [facility] [id number] Claudio Devries [id number] Claudio Devries 12/31/2015 1 [facility] [id number] Claudio Devries [id number] Claudio Devries 04/13/2016 1 [facility] [id number] Claudio Devries [id number] Claudio Devries 08/06/2016 1 [facility] [id number] Claudio Devries [id number] Claudio Devries Notes Date Note Type Note [...] lieu of his complaints. Mateo Moreno MD [address] [place] [address], [phone], [facility] 12/08/2015 23:48:15 12/31/2015 text/html Mr. Devries is he re for follow up and planned EMG/NCS of the lower extremities. In the interim between visits, there has been no appreciable changes in his neurologic course. The requested brain MRI was completed yesterday (12/30/15 [facility]), and was reviewed today. 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 He brought an older CT brain image on CD (06/03/15 [facility]) which would not open on our computer, [...] him for vestibular rehab. Mateo Moreno MD [address] [place] [address], [address], [facility] 01/07/2016 22:47:13 04/13/2016 text/html Mr. Devries [...] was otherwise unchanged overall. Mateo Moreno MD [address] [place] [address], [phone], [facility] [place] 04/14/2016 23:06:55 08/06/2016 text/html Mr. Devries is [...] today remains unchanged overall. Mateo Moreno MD [address] [place] [address], [phone], [facility] 08/06/2016 13:52:22
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
--- OUTSIDE RECORDS SUMMARY | 2025-03-06 05:18 | XMS_ITS | Clinical Summary ---
Author Organization [facility] Address [address] [place] [address] Care Team Providers Care Merchandiser Name Role Phone Emeka Garcia MD Unavailable [phone] Viv Seo MD Unavailable Kahlil Peres MD Primary Care Provider [phone] Allergies Active Allergy Reactions Criticality Noted Date Comments Magnesium Hives 12/30/2022 Received 2 g IVPB one time dose on December and September of 2023 Medications ELIQUIS 5 MG tablet Take 1 tablet (5 mg total) by mouth 2 (two) times daily. Patient reports only taking once per day due to cost of medication 2 Active fenofibrate (TRICOR) 48 MG tablet Take 1 tablet (48 mg total) by mouth daily. 2 Active torsemide (DEMADEX) 10 MG tablet Take 1 tablet (10 mg total) by mouth daily. 3 Active acetaminophen (TYLENOL) 325 MG tablet Take [...] mouth 2 (two) times daily. Active multi vitamin/mineral s (THERA-M ENHANCED) tablet Take 1 tablet by [...] mouth 2 (two) times daily. 480 tablet 5 Active amLODIPine (NORVASC) 10 MG tablet Take 1 tablet (10 mg total) by mouth daily. 60 tablet 5 Active QUEtiapine (SEROQUEL) 25 MG tablet Take 1 tablet (25 mg total) by mouth 2 (two) times daily as needed (Agitation). 60 tablet 5 Active Active Problems Problem Noted Date Diagnosed Date Parotiditis 11/30/2024 NSTEMI (non-ST elevated myoc ardial infarction) ([facility]) 12/26/2023 Multiple fractures of ribs, bilateral, initial encounter for closed fracture 10/02/2023 Fall 10/02/2023 SOB (shortness of breath) on exertion 12/30/2022 Encounters Date Type Department Care Team Description 02/13/2025 Telephone [facility] [address] [place] [address] Emeka Garcia MD Reschedule 12/19/2024 Telephone [facility] [address] [place] [address] Emeka Garcia MD Error 11/30/2024 2:31 PM ASSOCIATE COUNSEL - 12/18/2024 12:39 PM ASSOCIATE COUNSEL Hospital Encounter [facility] [address] [place] [address] Lara Ramos MD Ahmed, Asad N, MD Missula, Venkata R Karthik, MD Anunobi, Nnamdi, MD Udeozo, Obiora I, MD Duval, Jesu Sims, MD Hoffman, Donn More, Discharge Disposition: [facility] from Last 3 Months Immunizations Immunization Administration Dates Next Due Tdap (Boostrix) 07/11/2024 Tdap (Generic) 06/03/2015 Social History Tobacco Use Types Packs/Day Years Used Date Smoking Tobacco: Never Smokeless Tobacco: Never Tobacco Cessation:Counseling Given: Not Answered Alcohol Use Standard Drinks/Week Comments Yes 16.7 (1 standard drink = 0.6 oz pure alcohol) [facility] Utilities Answer Date Recorded In the past 12 months has e [employer], gas, oil, or water [employer] threatened to shut off services in your [...] in a half-way (including now)? No 12/27/2023 Housing Stability Vital Sign Answer Varinder e Recorded In the last 12 months, was t here a time when you were not able to pay the mortgage or rent on time? No 11/30/2024 In the past 12 months, how m any times have you moved where you were living? 1 11/30/2024 At any time in the past 12 m [facility], were you homeless or living in a half-way (including now)? Patient unable to answer 11/30/2024 Sex and Gender Information Value Date Recorded Sex Assigned at Male 12/04/2024 9:12 AM ASSOCIATE COUNSEL Legal Sex Male 5:48 PM ASSOCIATE COUNSEL Gender Identity Not on file Sexual Orientation Not on file Last Filed Vital Signs Vital Sign Reading Time Taken Comments Blood Pressure 119/71 12/18/2024 8:01 AM ASSOCIATE COUNSEL Pulse 82 12/18/2024 8:01 AM ASSOCIATE COUNSEL Temperature 36.5 C (97.7 F) 12/18/2024 8:01 AM ASSOCIATE COUNSEL Respiratory Rate 18 12/18/2024 8:01 AM ASSOCIATE COUNSEL Oxygen Saturation 99% 12/18/2024 8:01 AM ASSOCIATE COUNSEL Inhaled Oxygen Concentration - - Weight 64.3 kg (141 lb 12.1 oz) 12/18/2024 3:25 AM ASSOCIATE COUNSEL Height 177.8 cm (5' 10 ) 12/17/2024 4:26 AM ASSOCIATE COUNSEL Body Mass Index 20.34 12/17/2024 4:26 AM ASSOCIATE COUNSEL Plan of Treatment Upcoming Encounters Date Type Department Care Team (Late st Contact Info) Description 05/01/2025 12:30 PM CDT Office Visit [facility] [address] [place] [address] [place] [address] Melany Oseguera PA-C [address] [place] [address] [phone] 05/15/2025 8:30 AM CDT Appointment [address] [place] [address] Viv Seo MD [address] [place] [phone] 05/20/2025 2:45 PM CDT Office Visit [facility] [place] [address] Viv Seo MD [address] [place], [place] [phone] Health Maintenance Due Date Last Done Comments ASCVD Statin 1955 Colorectal Cancer Screening Colonoscopy (10 Years) 1955 Pneumococcal Vaccine: 50+ Years (1 of 2 - PCV) 1961 Hepatitis C 1973 Zoster Vaccines (1 of 2) 2005 RSV Immunization or 60+ Years (1 - Risk 60-74 years 1-dose series) 2015 Annual Medicare Wellness Visit 2020 COVID-19 Vaccine (1 - 2023-2 5 season) 2024 ASCVD LDL 12/27/2024 12/27/2023 DTaP, Tdap [...] in ADLs upon discharge from hospital 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, 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 Procedure Name Priority Date/Time Associated Diagnosis Comments POCT GLUCOSE - HULL DOCKED DEVICE Routine 12/18/2024 12:02 PM ASSOCIATE COUNSEL USV VAST TEAM MIDLINE INSERT >5YR STAT 12/18/2024 11:15 AM ASSOCIATE COUNSEL BASIC METABOLIC PANEL STAT 12/18/2024 9:13 AM ASSOCIATE COUNSEL POCT GLUCOSE - HULL DOCKED DEVICE Routine 12/18/2024 5:42 AM ASSOCIATE COUNSEL POCT GLUCOSE - HULL DOCKED DEVICE Routine 12/18/2024 12:00 AM ASSOCIATE COUNSEL POCT GLUCOSE - HULL DOCKED DEVICE Routine 12/17/2024 5:26 PM ASSOCIATE COUNSEL POCT GLUCOSE - HULL DOCKED DEVICE Routine 12/17/2024 12:[address] GD ASPIR+BX BONE MARROW Today 12/17/2024 9:07 AM ASSOCIATE COUNSEL FLOW CYTOMETRY Routine 12/17/2024 9:00 AM ASSOCIATE COUNSEL PROTHROMBIN TIME, VENOUS STAT 12/17/2024 8:00 AM ASSOCIATE COUNSEL CBC W/DIFF AUTOMATED Routine 12/17/2024 3:45 AM ASSOCIATE COUNSEL BASIC METABOLIC PANEL Routine 12/17/2024 3:45 AM ASSOCIATE COUNSEL PATHOLOGY Routine 12/17/2024 12:00 AM ASSOCIATE COUNSEL POCT GLUCOSE - HULL DOCKED DEVICE Routine 12/16/2024 4:38 PM ASSOCIATE COUNSEL POCT GLUCOSE - HULL DOCKED DEVICE Routine 12/16/2024 11:51 AM ASSOCIATE COUNSEL POCT GLUCOSE - HULL DOCKED DEVICE Routine 12/16/2024 5:11 AM ASSOCIATE COUNSEL POCT GLUCOSE - HULL DOCKED DEVICE Routine 12/15/2024 8:11 PM ASSOCIATE COUNSEL ECG 12-LEAD Routine 12/15/2024 6:38 PM ASSOCIATE COUNSEL POCT GLUCOSE - HULL DOCKED DEVICE Routine 12/15/2024 4:00 PM ASSOCIATE COUNSEL POCT GLUCOSE - HULL DOCKED DEVICE Routine 12/15/2024 11:28 AM ASSOCIATE COUNSEL POCT GLUCOSE - HULL DOCKED DEVICE Routine 12/15/2024 5:12 AM ASSOCIATE COUNSEL CBC, AUTO, NO DIFF Routine 12/15/2024 3: 14 AM ASSOCIATE COUNSEL BASIC METABOLIC PANEL Routine 12/15/2024 3:14 AM ASSOCIATE COUNSEL POCT GLUCOSE - HULL DOCKED DEVICE Routine 12/15/2024 12:28 AM ASSOCIATE COUNSEL POCT GLUCOSE - HULL DOCKED DEVICE Routine 12/14/2024 7:57 PM ASSOCIATE COUNSEL POCT GLUCOSE - HULL DOCKED DEVICE Routine 12/14/2024 5:42 PM ASSOCIATE COUNSEL POCT GLUCOSE - HULL DOCKED DEVICE Routine 12/14/2024 1:28 PM ASSOCIATE COUNSEL POCT GLUCOSE - HULL DOCKED DEVICE Routine 12/14/2024 6:26 AM ASSOCIATE COUNSEL POCT GLUCOSE - HULL DOCKED DEVICE Routine 12/13/2024 10:49 PM ASSOCIATE COUNSEL POCT GLUCOSE - HULL DOCKED DEVICE Routine 12/13/2024 9:20 PM ASSOCIATE COUNSEL POCT GLUCOSE - HULL DOCKED DEVICE Routine 12/13/2024 6:12 PM ASSOCIATE COUNSEL POCT GLUCOSE - HULL DOCKED DEVICE Routine 12/13/2024 11:57 AM ASSOCIATE COUNSEL IMMUNOFIXATION, URINE 24 HR Routine 12/13/2024 11:30 AM ASSOCIATE COUNSEL PROTEIN ELECTROPHORESIS URINE 24 HR Routine 12/13/2024 11:30 AM ASSOCIATE COUNSEL PROTEIN TOTAL URINE 24 HR Nurse Collected Priority 12/13/2024 11:30 AM ASSOCIATE COUNSEL Anemia, unspecified type POCT GLUCOSE - HULL DOCKED DEVICE Routine 12/13/2024 6:29 AM ASSOCIATE COUNSEL CBC, AUTO, NO DIFF Routine 12/13/2024 2: 20 AM ASSOCIATE COUNSEL BASIC METABOLIC PANEL Routine 12/13/2024 2:20 AM ASSOCIATE COUNSEL POCT GLUCOSE - HULL DOCKED DEVICE Routine 12/12/2024 7:51 PM ASSOCIATE COUNSEL POCT GLUCOSE - HULL DOCKED DEVICE Routine 12/12/2024 4:56 PM ASSOCIATE COUNSEL XR CHEST PORTABLE Today 12/12/2024 12:15 PM ASSOCIATE COUNSEL URIC ACID BLOOD Routine 12/12/2024 11:42 AM ASSOCIATE COUNSEL Anemia, unspecified type LDH, LACTATE DEHYDROGENASE Routine 12/12/2024 11:42 AM ASSOCIATE COUNSEL Anemia, unspecified type BETA 2 MICROGLOBULIN, SERUM (QST) Routine 12/12/2024 11:42 AM ASSOCIATE COUNSEL Anemia, unspecified type POCT GLUCOSE - HULL DOCKED DEVICE Routine 12/12/2024 11:05 AM ASSOCIATE COUNSEL POCT GLUCOSE - HULL DOCKED DEVICE Routine 12/12/2024 6:15 AM ASSOCIATE COUNSEL CBC W/DIFF AUTOMATED Routine 12/12/2024 2:57 AM ASSOCIATE COUNSEL BLOOD SMEAR INTERPRETATION BY Routine 12/12/2024 2:57 AM ASSOCIATE COUNSEL Anemia, unspecified type CBC, AUTO, NO DIFF Routine 12/12/2024 2: 57 AM ASSOCIATE COUNSEL BASIC METABOLIC PANEL Routine 12/12/2024 2:57 AM ASSOCIATE COUNSEL CK (CPK) Routine 12/12/2024 2:57 AM ASSOCIATE COUNSEL PATHOLOGY Routine 12/12/2024 12:00 AM ASSOCIATE COUNSEL POCT GLUCOSE - HULL DOCKED DEVICE Routine 12/11/2024 8:40 PM ASSOCIATE COUNSEL POCT GLUCOSE - HULL DOCKED DEVICE Routine 12/11/2024 12:36 PM ASSOCIATE COUNSEL XR BONE SURVEY COMPLETE Today 12/11/2024 12:12 PM ASSOCIATE COUNSEL IMMUNOFIXATION Routine 12/11/2024 8:44 AM ASSOCIATE COUNSEL KAPPA LAMBDA FREE RATIO (QST) Routine 12/11/2024 8:44 AM ASSOCIATE COUNSEL PROTEIN, ELECTROPHORESIS Routine 12/11/2024 8:44 AM ASSOCIATE COUNSEL POCT GLUCOSE - HULL DOCKED DEVICE Routine 12/11/2024 5:36 AM ASSOCIATE COUNSEL POCT GLUCOSE - HULL DOCKED DEVICE Routine 12/11/2024 12:31 AM ASSOCIATE COUNSEL POCT GLUCOSE - HULL DOCKED DEVICE Routine 12/10/2024 11:38 PM ASSOCIATE COUNSEL POCT GLUCOSE - HULL DOCKED DEVICE Routine 12/10/2024 8:10 PM ASSOCIATE COUNSEL POCT GLUCOSE - HULL DOCKED DEVICE Routine 12/10/2024 7:31 PM ASSOCIATE COUNSEL POCT GLUCOSE - HULL DOCKED DEVICE Routine 12/10/2024 5:29 PM ASSOCIATE COUNSEL VANCOMYCIN TIMED 12/10/2024 10:03 AM ASSOCIATE COUNSEL BASIC METABOLIC PANEL Routine 12/10/2024 7:04 AM ASSOCIATE COUNSEL CBC W/DIFF AUTOMATED Routine 12/10/2024 7:[address] HIP RT WO CON Today 12/09/2024 12:15 PM ASSOCIATE COUNSEL CBC W/DIFF AUTOMATED Routine 12/09/2024 3:26 AM ASSOCIATE COUNSEL BASIC METABOLIC PANEL Routine 12/09/2024 3:26 AM ASSOCIATE COUNSEL BASIC METABOLIC PANEL TIMED 12/07/2024 7:42 PM ASSOCIATE COUNSEL VANCOMYCIN TIMED 12/07/2024 7:42 PM ASSOCIATE COUNSEL BLOOD GAS, ARTERIAL LAB Routine 12/07/2024 6:21 AM ASSOCIATE COUNSEL PRO-BRAIN NATRIURETIC PEPTIDE Routine 12/07/2024 6:21 AM ASSOCIATE COUNSEL XR CHEST PORTABLE STAT 12/07/2024 5:2 4 AM ASSOCIATE COUNSEL BASIC METABOLIC PANEL Routine 12/07/2024 1:53 AM ASSOCIATE COUNSEL CBC W/DIFF AUTOMATED Routine 12/07/2024 1:53 AM ASSOCIATE COUNSEL USE ECHOCARDIOGRAM W CON Today 12/06/2024 11:32 AM ASSOCIATE COUNSEL CBC W/DIFF AUTOMATED STAT 12/06/2024 3:21 AM ASSOCIATE COUNSEL COMPREHENSIVE METABOLIC PANEL Routine 12/06/2024 1:39 AM ASSOCIATE COUNSEL LIPID PANEL Routine 12/27/2023 7:08 AM ASSOCIATE COUNSEL from Last 3 Months or Most Recently Relevant to Health Maintenance Results * (ABNORMAL) POCT glucose (12/18/2024 12:02 PM ASSOCIATE COUNSEL) Only the most recent of34 resultswithin the time period is included. GLUCOSE POC 143(H) 70 - 109 12/18/2024 12:50 PM ASSOCIATE COUNSEL [facility] 12/18/2024 12:0 2 PM ASSOCIATE COUNSEL Donn Hoffman MD POCT ORDERABLES - DEVICE Final R esult [facility] [address] [place] [address], [place] [phone] [id number] * USV VAST TEAM MIDLINE INSERT >5YR (12/18/2024 11:15 AM ASSOCIATE COUNSEL) Anatomical Region Laterality Modality NA Vascular Ultraso und 12/18/2024 10:4 9 AM ASSOCIATE COUNSEL Narrative 12/18/2024 10:49 AM ASSOCIATE COUNSEL This report does not contain a radiologist's interpretation. Please review associated procedure and/or operative report. Procedure Note , Generic Conversion, MD - 12/18/2024 This report does not contain a radiologist's interpretation. Please review associated procedure and/or operative report. Donn Hoffman MD [facility] Final Result * (ABNORMAL) BASIC METABOLIC PANEL (12/18/2024 9:13 AM ASSOCIATE COUNSEL) Only the most recent of9 resultswithin the time period is included. SODIUM S/P/B 135(L) 136 - 145 MMOL/L 12/18/2024 9:45 AM [facility] POTASSIUM S/P/B 4.5 3.5 - 5.1 MMOL/L 12/18/2024 9:45 AM ASSOCIATE COUNSEL [facility] CHLORIDE S/P/B 106 97 - 115 MMOL/L 12/18/2024 9:45 AM [facility] CO2 26.0 21.0 - 32.0 MMOL/L 12/18/2024 9:45 AM [facility] GLUCOSE 124(H) 74 - 106 MG/DL 12/18/2024 9:45 AM [facility] BUN 28(H) 7 - 18 MG/DL 12/18/2024 9:45 AM ASSOCIATE COUNSEL [facility] CREATININE S/P/B 1.33(H) 0.70 - 1.30 MG/DL 12/18/2024 9:45 AM [facility] CALCIUM S/P/B 8.9 8.5 - 10.1 MG/DL 12/18/2024 9:45 AM ASSOCIATE COUNSEL [facility] ANION GAP 3.0 2.0 - 10.0 MMOL/L 12/18/2024 9:45 AM [facility] OSMOLALITY (CALC) 287 MOSM/KG 025 9:45 AM [facility] Comment:REFERENCE RANGE NOT ESTABLISHED GFR ESTIMATE 58(L) >90 ML/MIN/1. 73 M2 12/18/2024 9:45 AM [facility] GFR NOTES GFR REFERENCE S: 12/18/2024 9:45 AM [facility] Comment: THE ESTIMATED GFR [...] FAILURE: <15 ml/min/1.73 m2 12/18/2024 9:13 AM ASSOCIATE COUNSEL us Donn Hoffman MD LABORATORY Final Result [facility] [address] [place] [address], [id number] * CT GD ASPIR+BX BONE MARROW (12/17/2024 9:07 AM ASSOCIATE COUNSEL) Anatomical Region Laterality Modality Bone Computed Tomogra phy 12/18/2024 8:50 AM ASSOCIATE COUNSEL Impressions 12/18/2024 10:53 AM ASSOCIATE COUNSEL IMPRESSION: CT-guided percutaneous bone marrow biopsy, as described. The attending radiologist, Dr. Glasgow, was in the department for all critical portions of the procedure, has reviewed the images, and agrees with the content of this report. Dictated By: VEL oDve on 12/18/2024 8:50 AM Ordered By: DIONICIO BAKER Interpreted By: VEL Dove, 12/18/2024 8:50 AM Narrative 12/18/2024 10:53 AM ASSOCIATE COUNSEL [address] [address] PROCEDURE: CT-GUIDED BONE MARROW ASPIRATION AND BIOPSY DATE OF PROCEDURE: 12/17/2024 8:27 AM INDICATION: Anemia. Concern for myeloma. Primary provider: Jacob Campos PA-C Supervising provider: Reyes Glasgow M.D. Conscious sedation: Administered and monitored by a qualified interventional radiology nurse under supervision of the interventional physician gallery assistant. There was continuous monitoring of vital signs including pulse oximetry, end-tidal CO2, and EKG. Total intraservice or vroz-to-koty sedation time: 4 minutes. TECHNIQUE AND FINDINGS: Informed written consent was obtained. The patient was then brought to the CT scanner suite, placed in the prone position, and [place] protocol was observed to verify correct patient, [...] The needle was then connected to an ftopia motorized device to penetrate the cortex. At [...] Procedure Note Reyes Glasgow MD - 12/18/[address] [address] PROCEDURE: CT-GUIDED BONE MARROW ASPIRATION AND BIOPSY DATE OF PROCEDURE: 12/17/2024 8:27 AM INDICATION: Anemia. Concern for myeloma. Primary provider: Jacob Campos PA-C Supervising provider: Reyes Glasgow M.D. Conscious sedation: Administered and monitored by a qualifiedinterventional radiology nurse under supervision of the interventionalphysician gallery assistant. There was continuous monitoring of vital signsincluding pulse oximetry, end-tidal CO2, and EKG. Total intraservice krumid-ql-ixxh sedation time: 4 minutes. TECHNIQUE AND FINDINGS: Informed written consent was obtained. The patient was then brought to theCT scanner suite, placed in the prone position, and [place] protocol wasobserved to verify correct patient, site, [...] Result * Flow Cytometry (12/17/2024 9:00 AM ASSOCIATE COUNSEL) FLOW CYTOMETRY RESULTS [facility] Department of Laboratory Medicine [address] [place] [phone] , extension [phone] Pathology Report Flow Cytometry Report Name: TERRI DEVRIES Specimen #: [id number] Age: 6 1955 (Age: 69) Location: [facility] Sex: M Procedure Date: 12/17/2024 Hospital #: [id number] Date Received: 12/17/2024 Date Reported: 12/23/2024 Provider: [...] concurrently. Result: Tested: CD45, CD19, CD20, Surface [place], Surface Lambda, CD5, CD10, CD38, CD34, CD14, [...] interpretation, and sign out were performed at [facility], [address] [place] [address]. Electronically Signed Out RUBEN RIVERS MD This test was developed and its performance characteristics determined by [facility]. It has not been cleared or approved by the U.S. Food and Drug Administration. However, the use of Analyte Specific Reagents does not require FDA approval. [facility] 12/17/2024 9:00 AM ASSOCIATE COUNSEL 12/17/2024 9:15 AM ASSOCIATE COUNSEL Comment:Bone marrow aspirati on (See report [id number]) Dionicio Baker MD PATHOLOGY/CYTOLOGY ORDERABLES Fi nal Result [facility] [address] [place] [address], [id number] * (ABNORMAL) PROTIME/INR, VENOUS (12/17/2024 8:00 AM ASSOCIATE COUNSEL) PROTIME 13.8(H) 9.4 - 12.5 SEC 12/17/2024 8:29 AM ASSOCIATE COUNSEL [facility] INR 1.2(H) 0.8 - 1.1 12/17/2024 8:29 AM [facility] 12/17/2024 8:00 AM ASSOCIATE COUNSEL us Reyes Glasgow MD LABORATORY Final Resu lt [facility] [address] [place] [address], [id number] * (ABNORMAL) CBC W/DIFF AUTOMATED (12/17/2024 3:45 AM ASSOCIATE COUNSEL) Only the most recent of6 resultswithin the time period is included. WBC 4.81 4.00 - 10.80 x10'3/uL 12/17/2024 4:27 AM [facility] RBC 3.07(L) 4.50 - 6.10 x10'6/uL 12/17/2024 4:27 AM [facility] HGB 9.8(L) 12.0 - 16.0 G/DL 12/17/2024 4:27 AM [facility] HCT 30.4(L) 37.0 - 52.0 % 12/17/2024 4:27 AM [facility] MCV 99.0 78.0 - 100.0 FL 12/17/2024 4:27 AM [facility] MCH 31.9(H) 27.0 - 31.0 PG 12/17/2024 4:27 AM [facility] MCHC 32.2(L) 33.0 - 36.0 G/DL 12/17/2024 4:27 AM [facility] RDW 13.6 11.5 - 14.5 % 12/17/2024 4:27 AM [facility] PLT 207 150 - 350 x10'3/uL 12/17/2024 4:27 AM [facility] MPV 11.3(H) 7.4 - 10.4 FL 12/17/2024 4:27 AM [facility] DIFFERENTIAL TYPE AUTOMATED DIFFERENTIAL 12/17/2024 4:27 AM [facility] SEG NEUTROPHILS 60.5 % 4:27 AM [facility] LYMPHOCYTES 22.5 % 12/17/2024 4:27 AM [facility] MONOCYTES 12.9 % 12/17/2024 4:27 AM [facility] EOSINOPHILS 3.3 % 12/17/2024 4:27 AM [facility] BASOPHILS 0.4 % 12/17/2024 4:27 AM [facility] IMMATURE GRANS % 0.4 % 12/17/19 4:27 AM [facility] ABS. NEUTROPHILS 2.91 1.60 - 8.30 x10'3/uL 12/17/2024 4:27 AM [facility] ABS. LYMPHOCYTES 1.08 0.80 - 4.70 x10'3/uL 12/17/2024 4:27 AM [facility] ABS. MONOCYTES 0.62 0.00 - 1.50 x10'3/uL 12/17/2024 4:27 AM [facility] ABS. EOSINOPHILS 0.16 0.00 - 0.40 x10'3/uL 12/17/2024 4:27 AM [facility] ABS. BASOPHILS 0.02 0.00 - 0.20 x10'3/uL 12/17/2024 4:27 AM [facility] ABS. IMMATURE GRANULOCYTES 0.02 0.00 - 0.03 x10'3/uL 12/17/2024 4:27 AM [facility] ABS. NUCLEATED RBC'S 0.00 0.00 - 0.01 x10'3/uL 12/17/2024 4:27 AM [facility] NRBC % 0.0 % 12/17/2024 4:27 AM ASSOCIATE COUNSEL [facility] 12/17/2024 3:45 AM ASSOCIATE COUNSEL Donn Hoffman MD LABORATORY Final Result [facility] [address] [place] [address], [id number] * Pathology (12/17/2024 12:00 AM ASSOCIATE COUNSEL) Only the most recent of2 resultswithin the time period is included. PATHOLOGY [facility] Department of Laboratory Medicine [address] [place] [phone] , extension [phone] Pathology Report Bone Marrow Report Name: TERRI DEVRIES Specimen #: [id number] Age: 6 1955 (Age: 69) Location: [facility] Sex: M Procedure Date: 12/17/2024 Hospital #: [id number] Date Received: 12/17/2024 Date Reported: 12/23/2024 Provider: [...] cell, or blast population (see separate report [id number]). In summary, there is no diagnostic evidence [...] interpretation, and sign out were performed at [facility], [address] [place] [address]. All immunohistochemical and histochemical tests were developed by and performed at [facility], [address] [place] [address]. All tests reported here have not been [...] cell, or blast population (see separate report [id number]). Cytogenetics/FISH: Not performed. [facility] 12/17/2024 12/17/2024 10: 22 AM ASSOCIATE COUNSEL Comment:Bone marrow, left il iac aspiration&Bone marrow left iliac biopsy us Lara Ramos MD PATHOLOGY/CYTOLOGY ORDERABLES Final Result [facility] [address] [place] [address], [place] [phone] [id number] * ECG 12 lead (12/15/2024 6:38 PM ASSOCIATE COUNSEL) 12/15/2024 6:38 PM ASSOCIATE COUNSEL Narrative [facility] - 12/15/2024 6:58 [place] [address] Test Date: 2024-12-15 Pat Name: TERRI DEVRIES Department: 1 Room: [facility] Gender: Male 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: Ms : 1955 Requested By: DONN HOFFMAN Order Number: [id number] Reading MD: Viv Seo Measurements Intervals [place] Rate: 101 P: NC: 0 QRS: -55 QRSD: 105 T: 131 QT: 374 QTc: 486 Interpretive Statements ATRIAL FIBRILLATION WITH RAPID VENTRICULAR RESPONSE LEFT ANTERIOR FASCICULAR BLOCK [QRS AXIS <= -45, QR IN I, RS IN II] PROBABLE SEPTAL MYOCARDIAL INFARCTION , PROBABLY OLD [35 ms Q WAVE IN V1/V2] CIATE COUNSEL Procedure Note Viv Seo MD - 12/15/2024 [address] [place] [address] Test Date: 2024-12-15 Pat Name: TERRI DEVRIES Department: 1 Room: 816AA Gender: Male 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: : 1955 Requested By: DONN HOFFMAN Order Number: [id number] Reading MD: Viv Seo Measurements Intervals [place] Rate: 101 P: NC: 0 QRS: -55 QRSD: 105 T: 131 QT: 374 QTc: 486 Interpretive Statements ATRIAL FIBRILLATION WITH RAPID VENTRICULAR RESPONSE LEFT ANTERIOR FASCICULAR BLOCK [QRS AXIS <= -45, QR IN I, RS IN II] PROBABLE SEPTAL MYOCARDIAL INFARCTION , PROBABLY OLD [35 ms Q WAVE INV1/V2] CIATE COUNSEL us Donn Hoffman MD ECG ORDERABLES Final Result [facility] * (ABNORMAL) CBC, AUTO, NO DIFF (12/15/2024 3:14 AM ASSOCIATE COUNSEL) Only the most recent of3 resultswithin the time period is included. WBC 6.63 4.00 - 10.80 x10'3/uL 12/15/2024 3:56 AM ASSOCIATE COUNSEL [facility] RBC 3.27(L) 4.50 - 6.10 x10'6/uL 12/15/2024 3:56 AM ASSOCIATE COUNSEL [facility] HGB 10.7(L) 12.0 - 16.0 G/DL 12/15/2024 3:56 AM ASSOCIATE COUNSEL [facility] HCT 32.4(L) 37.0 - 52.0 % 12/15/2024 3:56 AM ASSOCIATE COUNSEL [facility] MCV 99.1 78.0 - 100.0 FL 12/15/2024 3:56 AM ASSOCIATE COUNSEL [facility] MCH 32.7(H) 27.0 - 31.0 PG 12/15/2024 3:56 AM ASSOCIATE COUNSEL [facility] MCHC 33.0 33.0 - 36.0 G/DL 12/15/2024 3:56 AM [facility] RDW 13.6 11.5 - 14.5 % 12/15/2024 3:56 AM [facility] PLT 184 150 - 350 x10'3/uL 12/15/2024 3:56 AM [facility] MPV 11.4(H) 7.4 - 10.4 FL 12/15/2024 3:56 AM [facility] 12/15/2024 3:14 AM ASSOCIATE COUNSEL us Donn Hoffman MD LABORATORY Final Result Performing Organization Address [facility] de Phone Number [facility] [address] [place] [address], [place] [phone] * IMMUNOFIXATION, URINE 24 HR (12/13/2024 11:30 AM ASSOCIATE COUNSEL) IMMUNOFIXATION 24HR (U) SEE PATHOLOGIST'S INTERPRETATION 12/17/2024 1:01 PM [facility] IMMUNOFIXATION INTERPRETATION 24HR THIS URINE IMMUNOTYPING WAS INTERPRETED BY 12/18/2024 12:30 PM [facility] Comment: DR MELO MONTOYA MONOCLONAL PROTEIN NOT IDENTIFIED BENCE PINA PROTEIN NOT DETECTED. 12/13/2024 11:3 0 AM ASSOCIATE COUNSEL us Donn Hoffman MD URINE ORDERABLES Final Result Performing Organization Address [facility] de Phone Number [facility] [address] [place] [address], [place] [phone] * (ABNORMAL) PROTEIN TOTAL URINE 24 HR (12/13/2024 11:30 AM ASSOCIATE COUNSEL) PROTEIN URINE TOTAL RANDOM 79.1(H) <12.0 MG/DL 12/13/2024 12:41 PM [facility] TOTAL PROTEIN 24HR (U) 1,146.95(H ) 0 - 149 MG/24HR 12/13/2024 12:41 PM ASSOCIATE COUNSEL [facility] VOLUME (U) 1,450 ML 12/13/2024 12:16 PM ASSOCIATE COUNSEL [facility] URINE SPECIMEN / Unknown 12/13/2024 11:30 AM ASSOCIATE COUNSEL Nhung Seo MD URINE ORDERABLES Final Result Performing Organization Address [facility] de Phone Number [facility] [address] [place] [address], [phone] * (ABNORMAL) PROTEIN ELECTROPHORESIS URINE 24 HR (12/13/2024 11:30 AM ASSOCIATE COUNSEL) TOTAL PROTEIN 24HR (U) 1,147.0(H) <100 MG/24HRS 12/17/2024 12:59 PM ASSOCIATE COUNSEL [facility] INTERPRETATION THIS URINE PEP WAS INTERPRETED BY 12/18/2024 12:30 PM ASSOCIATE COUNSEL [facility] Comment: DR MELO MONTOYA THERE IS MODERATE 24 HOUR PROTEINURIA COMPOSED OF LOWER MOLECULAR WEIGHT PROTEINS (SELECTIVE PROTEINURIA). BENCE PINA PROTEIN IS NOT DETECTED. 12/13/2024 11:3 0 AM ASSOCIATE COUNSEL Donn Hoffman MD URINE ORDERABLES Final Result Performing Organization Address [facility] de Phone Number [facility] [address] [place] [address], [place] [phone] * XR CHEST PORTABLE (12/12/2024 12:15 PM ASSOCIATE COUNSEL) Only the most recent of2 resultswithin the time period is included. Anatomical Region Laterality Modality Chest Radiographic Modesta ging 12/12/2024 3:21 PM ASSOCIATE COUNSEL Impressions 12/12/2024 3:22 PM ASSOCIATE COUNSEL IMPRESSION: 1. NO SIGNIFICANT INTERVAL CHANGE. Signed: Diogenes Arriaga MD Referred By: MINA YOU Interpreted By: Diogenes Arriaga MD, 12/12/2024 3:21 PM Narrative 12/12/2024 3:22 PM ASSOCIATE COUNSEL [address] [address] PATIENT NAME: TERRI DEVRIES EXAM: Chest one view DATE OF EXAM: 12/12/2024 COMPARISON EXAM: 12/07/2024 INDICATION: CHF TECHNIQUE: AP chest FINDINGS: Shallow inspiration. Mild cardiomegaly similar to previous study. Thoracic aorta remains mildly ectatic and tortuous. Mild pulmonary vascular congestion and edema similar to previous study. No new airspace consolidation. No gross pleural effusion. Procedure Note Diogenes Arriaga MD - 12/12/[address] [address] PATIENT NAME: TERRI DEVRIES EXAM: Chest one [...] (ABNORMAL) LDH, LACTATE DEHYDROGENASE (12/12/2024 11:42 AM ASSOCIATE COUNSEL) LDH 280(H) 87 - 241 UNITS/L 12/12/2024 12:26 PM ASSOCIATE COUNSEL [facility] 12/12/2024 11:4 2 AM ASSOCIATE COUNSEL Nhung Seo MD LABORATORY Final Result [facility] [address] [place] [address], [place] [phone] * (ABNORMAL) BETA 2 MICROGLOBULIN, SERUM (QST) (12/12/2024 11:42 AM ASSOCIATE COUNSEL) BETA-2 MICROGLOBULIN 4.88(H) <=2.51 mg/L 12/17/2024 7:41 AM ASSOCIATE COUNSEL [employer] [facility] Comment: Test Performed by Tam Hurtado, [employer] [facility], [address] [place] [address] Melo Huertas M.D., Ph.D., Director of Laboratories , [place] [id number] 12/12/2024 11:4 2 AM ASSOCIATE COUNSEL Nhung Seo MD LABORATORY Final Result Performing Organization Address City/[facility]/ZIP Co de Phone Number [employer] [facility] , [place] [phone] * URIC ACID BLOOD (12/12/2024 11:42 AM ASSOCIATE COUNSEL) URIC ACID 5.7 3.5 - 7.2 MG/DL 12/12/2024 12:26 PM ASSOCIATE COUNSEL [facility] 12/12/2024 11:4 2 AM ASSOCIATE COUNSEL us Nhung Seo MD LABORATORY Final Result [facility] [address] [place] [address], [place] [phone] * BLOOD SMEAR INTERPRETATION BY (12/12/2024 2:57 AM ASSOCIATE COUNSEL) CBC PATHOLOGIST COMMENT SENT TO PATHOLOGIST FOR REVIEW 12/12/2024 11:17 AM ASSOCIATE COUNSEL [facility] 12/12/2024 2:57 AM ASSOCIATE COUNSEL Nhung Seo MD LABORATORY Final Result Performing Organization Address [facility] Co de Phone Number [facility] [address] [place] [address], [phone] * CK (CPK) - Weekly starting tomorrow (12/12/2024 2:57 AM ASSOCIATE COUNSEL) CPK 54 39 - 308 U/L 12/12/2024 3:35 AM ASSOCIATE COUNSEL [facility] 12/12/2024 2:57 AM ASSOCIATE COUNSEL Tawana Barker NP LABORATORY Final Result Performing Organization Address [facility] de Phone Number [facility] [address] [place] [address], [place] [phone] * XR BONE SURVEY COMPLETE (12/11/2024 12:12 PM ASSOCIATE COUNSEL) Anatomical Region Laterality Modality Bone Radiographic Modesta ging 12/11/2024 10:2 4 PM ASSOCIATE COUNSEL Impressions 12/11/2024 10:37 PM ASSOCIATE COUNSEL IMPRESSION: 1. Scattered lucencies seen in the [...] 12/11/2024 10:24 PM Narrative 12/11/2024 10:37 PM ASSOCIATE COUNSEL [address] [address] Examination: XR BONE SURVEY COMPLETE Exam time: [...] Procedure Note Zeke Calzada, DO - 12/11/[address] [address] Examination: XR BONE SURVEY COMPLETE Exam time: [...] LAMBDA FREE RATIO (QST) (12/11/2024 8:44 AM ASSOCIATE COUNSEL) Pathologist [facility] KAPPA FREE LIGHT CHAIN 83.0(H) 3.3 - 19.4 mg/L 12/13/2024 11:02 AM ASSOCIATE COUNSEL [employer] [facility] L[facility] LAMBDA FREE LIGHT CHAIN 47.9(H) 5.7 - 26.3 mg/L 12/13/2024 11:02 AM ASSOCIATE COUNSEL [employer] [facility] LLY KAPPA/LAMBDA FREE 1.73(H) 0.26 - 1.65 12/13/2024 11:02 AM ASSOCIATE COUNSEL [employer] [facility] Comment: Free kappa/lambda ratio in serum [...] therapy of these disorders. Test Performed by [employer], [employer] [facility], [address] [place] [address] Melo Huertas M.D., Ph.D., Director of Laboratories , [facility] [id number] 12/11/2024 8:44 AM ASSOCIATE COUNSEL Donn Hoffman MD LABORATORY Final Result [employer] [phone], * IMMUNOFIXATION (12/11/2024 8:44 AM ASSOCIATE COUNSEL) Pathologist [facility] IMMUNOFIXATION SERUM SEE PATHOLOGIST'S INTERPRETATION 12/12/2024 11:59 AM ASSOCIATE COUNSEL [facility] IMMUNOFIX (SERUM) INTERPRETATION THIS SERUM IMMUNOTYPING WAS INTERPRETED BY 12/13/2024 9:32 AM ASSOCIATE COUNSEL [facility] Comment: DR GABI PINA MD MONOCLONAL PROTEIN NOT IDENTIFIED 12/11/2024 8:44 AM ASSOCIATE COUNSEL Donn Hoffman MD LABORATORY Final Result Performing Organization Address City/[facility] Co de Phone Number [facility] [address] [place] [address], [id number] * (ABNORMAL) PROTEIN, ELECTROPHORESIS (12/11/2024 8:44 AM ASSOCIATE COUNSEL) TOTAL PROTEIN (ELECTROPHORESIS SERUM) 6.5 6.0 - 8.3 G/DL 12/12/2024 11:58 AM ASSOCIATE COUNSEL [facility] ALBUMIN ELECTROPHORESIS S/P/B 3.0(L) 3.4 - 4.9 G/DL 12/12/2024 11:57 AM ASSOCIATE COUNSEL [facility] [id number] S/P/B 0.3 0.2 - 0.4 G/DL 12/12/2024 11:57 AM ASSOCIATE COUNSEL [facility] [id number] S/P/B 0.9 0.4 - 1.0 G/DL 12/12/2024 11:57 AM ASSOCIATE COUNSEL [facility] BETA GLOBULIN S/P/B 1.1 0.5 - 1.2 G/DL 12/12/2024 11:57 AM ASSOCIATE COUNSEL [facility] GAMMA GLOBULIN S/P/B 1.2 0.6 - 1.6 G/DL 12/12/2024 11:57 AM ASSOCIATE COUNSEL [facility] ELECTROPHORESIS INTERPRETATION THIS SERUM PEP WAS INTERPRETED BY 12/13/2024 9:32 AM ASSOCIATE COUNSEL [facility] Comment: DR GABI PINA MD THE TOTAL SERUM PROTEIN IS NORMAL. ELECTROPHORESIS IDENTIFIES DECREASED ALBUMIN WITH NO ADDITIONAL QUANTITATIVE ABNORMALITIES. MONOCLONAL PROTEINS ARE NOT DETECTED. 12/11/2024 8:44 AM ASSOCIATE COUNSEL us Donn Hoffman MD LABORATORY Final Result Performing Organization Address City/[facility] de Phone Number [facility] [address] [place] [address], [id number] * Vancomycin Random Level (12/10/2024 10:03 AM ASSOCIATE COUNSEL) Only the most recent of2 resultswithin the time period is included. VANCOMYCIN RANDOM 17.3 MCG/ML 12/10/2024 10:47 AM ASSOCIATE COUNSEL [facility] Comment:REFERENCE RANGE NOT ESTABLISHED 12/10/2024 10:0 3 AM ASSOCIATE COUNSEL Jesu Duval MD LABORATORY Final Result Performing Organization Address [facility] Co de Phone Number [facility] [address] [place] [address], [id number] * CT HIP RT WO CON (12/09/2024 12:15 PM ASSOCIATE COUNSEL) Anatomical Region Laterality Modality Hip Computed Tomogra phy 12/09/2024 2:13 PM ASSOCIATE COUNSEL Impressions 12/09/2024 2:20 PM ASSOCIATE COUNSEL IMPRESSION: 1. No CT evidence of a right hip joint effusion. 2. Bone scan follow-up recommended for subtle, multifocal bone lucencies. Referred By: MINA YOU Interpreted By: Bryan Vences MD, 12/09/2024 2:13 PM Narrative 12/09/2024 2:20 PM ASSOCIATE COUNSEL [facility] [address] [place], [place] [address] EXAM: CT HIP RT WO CON DATE: [...] Procedure Note Bryan Vences MD - 12/09/2024 [facility] [address] [place], [place] [address] EXAM: CT HIP RT WO CON DATE: [...] (ABNORMAL) PRO-BRAIN NATRIURETIC PEPTIDE (12/07/2024 6:21 AM ASSOCIATE COUNSEL) PRO-B TYPE NATRIURETIC PEPTIDE 16,835(H) <125 PG/ML 12/07/2024 7:02 AM ASSOCIATE COUNSEL [facility] Comment: AGE INDEPENDENT: <300 PG/ML HAS [...] 72% FOR ACUTE CHF. 12/07/2024 6:21 AM ASSOCIATE COUNSEL Jesu Duval MD LABORATORY Final Result [facility] [address] [place] [address], [id number] * ARTERIAL BLOOD GAS (12/07/2024 6:21 AM ASSOCIATE COUNSEL) PH ARTERIAL 7.44 7.35 - 7.45 12/07/2024 6:32 AM [facility] PCO2 36.5 35.0 - 45.0 MMHG 12/07/2024 6:32 AM [facility] PO2 84.4 83.0 - 108.0 MMHG 12/07/2024 6:32 AM [facility] BICARB ARTERIAL 24.1 22 - 26 MMOL/L 12/07/2024 6:32 AM [facility] TOTAL CO2 CAPILLARY 25.3 23 - 27 MMOL/L 12/07/2024 6:32 AM [facility] BE/BASE EXCESS 0.7 0 - 2 MMOL/L 12/07/2024 6:32 AM [facility] O2 Saturation 96 95 - 98 % 12/07/2024 6:32 AM [facility] SERGO TEST N/A 12/07/2024 6:21 AM [facility] OXYGEN STATUS 2 lt 12/07/2024 6:21 AM [facility] DRAW SITE ARTERIAL LT RADIAL 12/07/2024 6:21 AM [facility] 12/07/2024 6:21 AM ASSOCIATE COUNSEL Jesu Duval MD LABORATORY Final Result [facility] [address] [place] [address], [id number] * USE ECHOCARDIOGRAM W CON (12/06/2024 11:32 AM ASSOCIATE COUNSEL) Anatomical Region Laterality Modality NA Echocardiogram 12/06/2024 9:40 AM ASSOCIATE COUNSEL Narrative 12/06/2024 10:36 PM ASSOCIATE COUNSEL Echocardiography Report Pat.Name: EDILMASILVANATERRI Pat.ID: [id number] .Date: 12/06/2024 Refer.MD: [id number] KENYATTA ENRIQUEZ EWDPROV EWDPROV Exam Time: 9:40:00 [...] Mass 2D Value 197 g LV Mass [id number] Value 101 g/m2 RA Volume Atrial Flores [...] 12/06/2024 Echocardiography Report Pat.Name: TERRI DEVRIES Pat.ID: [id number] .Date: 12/06/2024 : [id number] YOU NORMANHMAN EWDPROV EWDPROV Exam Time: 9:40:00 AM Study [...] Mass 2D Value 197 g LV Mass [id number] Value 101 g/m2 RA Volume Atrial Flores [...] (ABNORMAL) COMPREHENSIVE METABOLIC PANEL (12/06/2024 1:39 AM ASSOCIATE COUNSEL) SODIUM S/P/B 146(H) 136 - 145 MMOL/L 12/06/2024 2:50 AM [facility] POTASSIUM S/P/B 3.5 3.5 - 5.1 MMOL/L 12/06/2024 2:50 AM [facility] CHLORIDE S/P/B 116(H) 97 - 115 MMOL/L 12/06/2024 2:50 AM [facility] CO2 26.2 21.0 - 32.0 MMOL/L 12/06/2024 2:50 AM [facility] GLUCOSE 90 74 - 106 MG/DL 12/06/2024 2:50 AM [facility] BUN 31(H) 7 - 18 MG/DL 12/06/2024 2:50 AM [facility] CREATININE S/P/B 2.15(H) 0.70 - 1.30 MG/DL 12/06/2024 2:50 AM [facility] CALCIUM S/P/B 8.9 8.5 - 10.1 MG/DL 12/06/2024 2:50 AM [facility] BILIRUBIN TOTAL S/P/B 0.7 0.2 - 1.0 MG/DL 12/06/2024 2:50 AM [facility] ALKALINE PHOSPHATASE S/P/B 45 45 - 115 U/L 12/06/2024 2:50 AM [facility] AST 61(H) 15 - 37 U/L 12/06/2024 2:50 AM [facility] ALT 62(H) 16 - 61 U/L 12/06/2024 2:50 AM [facility] TOTAL PROTEIN S/P/B 6.4 6.4 - 8.2 G/DL 12/06/2024 2:50 AM [facility] ALBUMIN S/P/B 2.3(L) 3.4 - 5.0 G/DL 12/06/2024 2:50 AM [facility] ANION GAP 3.8 2.0 - 10.0 MMOL/L 12/06/2024 2:50 AM [facility] OSMOLALITY (CALC) 308 MOSM/KG 025 2:50 AM [facility] Comment:REFERENCE RANGE NOT ESTABLISHED GFR ESTIMATE 33(L) >90 ML/MIN/1. 73 M2 12/06/2024 2:50 AM [facility] GFR NOTES GFR REFERENCE S: 12/06/2024 2:50 AM [facility] Comment: THE ESTIMATED GFR [...] FAILURE: <15 ml/min/1.73 m2 12/06/2024 1:39 AM ASSOCIATE COUNSEL Jesu Duval MD LABORATORY Final Result [facility] [address] [place] [address], [id number] * LIPID PANEL (12/27/2023 7:08 AM ASSOCIATE COUNSEL) CHOLESTEROL 131 MG/DL 12/27/2023 8:36 AM ASSOCIATE COUNSEL [facility] Comment:DESIRABLE: <200 TRIGLYCERIDES 124 MG/DL 12/27/2023 8:36 AM ASSOCIATE COUNSEL [facility] Comment:<150 NORMAL HDL 54 >39 MG/DL 12/27/2023 8:36 AM [facility] LDL (CALCULATED) 52 MG/DL 12/27/19 8:36 AM [facility] Comment:<100 OPTIMAL VLDL CALCULATION 25 MG/DL 12/27/19 8:36 AM ASSOCIATE COUNSEL [facility] Comment:REFERENCE RANGE NOT ESTABLISHED CHOL/HDL RATIO 2.4 12/27/2023 8:36 AM [facility] Comment:REFERENCE RANGE NOT ESTABLISHED LDL/HDL 1.0 12/27/2023 8:36 AM [facility] Comment:REFERENCE RANGE NOT ESTABLISHED NON HDL CHOLESTEROL 77 MG/DL 12/27/2023 8:36 AM [facility] Comment:REFERENCE RANGE NOT ESTABLISHED 12/27/2023 7:08 AM ASSOCIATE COUNSEL Arline Calixto MD LABORATORY Final Res ult [facility] [address] [place] [address], [id number] from Last 3 Months or Most Recently Relevant to Health Maintenance Insurance MEDICARE Advance Directives Documents on File Type Date Recorded 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
--- NOTE | 2025-03-06 05:25 | PC.NURSE ---
DR STEPHENS AT THE BEDSIDE
--- NOTE | 2025-03-06 05:25 | ECG_ITS ---
Test Date: 2025-03-06 05:40:47 Measurements Intervals Sharon Rate: 107 P: 0 VT: 0 QRS: -49 QRSD: 96 T: 70 QT: 332 QTc: 444 Interpretive Statements ATRIAL FIBRILLATION WITH RAPID VENTRICULAR RESPONSE LEFT AXIS DEVIATION INFERIOR INFARCT, AGE INDETERMINATE ANTEROSEPTAL INFARCT, AGE INDETERMINATE BORDERLINE ST-T WAVE ABNORMALITY- HIGH LATERAL LEADS BASELINE ARTIFACT- II, III, AVR, AVL, AVF, V1-V6 ABNORMAL ECG Compared to ECG 03/06/2025 05:19:59 HEART RATE HAS DECREASED Electronically Signed On 03-06-2025 06:41:49 CDT by Adalid Chanel D.O.
[2025-03-06] MEDS: dilTIAZem HCl INJ 25 MG/5 ML VIAL 10 MG IV PUSH ×2 (05:30→05:40)
[2025-03-06] MEDS: FUROSEMIDE INJ 40 MG/4 ML VIAL IV PUSH ×2 (05:34→06:29)
[2025-03-06] MEDS: methylPREDNISolone SOD SUCC 125 MG VIAL IV PUSH (05:38)
[2025-03-06] MEDS: IPRATROPIUM 0.5 MG/ALBUTEROL SULFATE 2.5 MG AMPUL.NEB 3 ML INHALATION (05:40)
--- NOTE | 2025-03-06 05:47 | PC.NURSE ---
pt given urinal and is aware urine specimen is needed. unable to go at this time
[2025-03-06] MEDS: dilTIAZem 100 MG/100 ML 100 MG/100 ML BAG IV CONT (05:50)
[2025-03-06 06:04] LABS: D Dimer 0.41 mg/L (0.19-0.50)
[2025-03-06 06:06] LABS: Alanine Aminotransferase 23 U/L (16-63); Albumin Level 3.3 g/dL (3.4-5.0); Alkaline Phosphatase 67 U/L (46-116); Anion Gap 9 mmol/L (4-12); Aspartate Amino Transferase 22 U/L (15-37); Bilirubin,Total 0.6 mg/dL (0.00-1.00); Blood Urea Nitrogen 36 mg/dL (7-18); Carbon Dioxide 26 mmol/L (21-32); Chloride 107 mmol/L (98-108); Estimated CRCL calculation 32 ml/min; Estimated Glomerular Filt Rate 33; Glucose 133 mg/dL (70-99); Magnesium 1.7 mg/dL (1.8-2.4); Osmolality Calculated 304 mOsm/kg (285-295); Potassium 4.1 mmol/L (3.5-5.1); Sodium 142 mmol/L (136-145); Total Protein 7.4 g/dL (6.4-8.2)
[2025-03-06 06:09] LABS: NT Pro B Type Natriuretic Pept 4718 pg/mL (0-125)
[2025-03-06 06:10] LABS: pH VBG 7.41 (7.33-7.43)
--- NOTE | 2025-03-06 06:11 | PC.NURSE ---
EX IS CURRENTLY AT THE BEDSIDE. PATIENT REPORTS THAT HE IS BREATHING BETTER NOW COMPARED TO ARRIVAL.
[2025-03-06 06:12] LABS: Device NASAL CANNULA
--- NOTE | 2025-03-06 06:25 | ED.SOB ---
HPI - SOB/Dyspnea General Chief Complaint: Shortness of Breath/Dyspnea <Lev Macario MD - Last Filed: 03/06/25 06:36> Stated Complaint: shortness of breath <Lev Macario MD - Last Filed: 03/06/25 06:36> Time Seen by Provider: 03/06/25 05:24 <Lev Macario MD - Last Filed: 03/06/25 06:36> Source: patient <Lev Macario MD - Last Filed: 03/06/25 06:36> Mode of arrival: ambulatory <Lev Macario MD - Last Filed: 03/06/25 06:36> Limitations: no limitations <Lev Macario MD - Last Filed: 03/06/25 06:36> History of Present Illness HPI Narrative: patient is a 69-year-old male with a significant past medical history that presents today with shortness of breath. Patient has had shortness of breath for last 2-3 days but this got worse this morning. Got bad enough to make him go into the ER. he denies any chest pain. He has a history of CHF, no history of COPD. He has never smoked before. He does also have a history of AFib. Currently EKG shows AFib with RVR. We will have to treat this and get Him out of RVR. <Lev Macario MD - Last Filed: 03/06/25 06:36> MD elicited complaint: shortness of breath <Lev Macario MD - Last Filed: 03/06/25 06:36> Pertinent past history: congestive heart failure <Lev Macario MD - Last Filed: 03/06/25 06:36> Onset (ago): day(s) <Lev Macario MD - Last Filed: 03/06/25 06:36> Timing: constant <Lev Macario MD - Last Filed: 03/06/25 06:36> Severity: moderate <Lev Macario MD - Last Filed: 03/06/25 06:36> Exacerbating factors: lying flat, movement and inspiration <Lev Macario MD - Last Filed: 03/06/25 06:36> Relieving factors: oxygen, rest, bronchodilators and upright position <Lev Macario MD - Last Filed: 03/06/25 06:36> Known history of: congestive heart failure <Lev Macario MD - Last Filed: 03/06/25 06:36> Associated symptoms: cough, sputum production and chest congestion <Lev Macario MD - Last Filed: 03/06/25 06:36> Related Data Home oxygen amount: none <Lev Macario MD - Last Filed: 03/06/25 06:36> Home Medications: Home Medications ?Medication ?Instructions ?Recorded ?Confirmed ?Last Taken ?Type atorvastatin 80 mg tablet 80 mg PO QPM 07/01/23 10/27/24 10/27/24 History duloxetine 30 mg capsule,delayed 30 mg PO DAILY 07/01/23 10/27/24 10/27/24 History release ezetimibe 10 mg tablet 10 mg PO DAILY 07/01/23 10/27/24 10/27/24 History fenofibric acid (choline) 45 mg 45 mg PO DAILY 07/01/23 10/27/24 10/27/24 History capsule,delayed release nifedipine 30 mg tablet,extended 30 mg PO DAILY 07/01/23 10/27/24 10/27/24 History release 24 hr torsemide 10 mg tablet 10 mg PO DAILY 07/01/23 10/27/24 10/27/24 History apixaban 5 mg tablet (Eliquis) 5 mg PO BID 10/25/24 10/27/24 10/27/24 History <Lev Macario MD - Last Filed: 03/06/25 06:36> Allergies/Adverse Reactions: Allergies Allergy/AdvReac Type Severity Reaction Status Date / Time magnesium sulfate AdvReac Intermediate Flushing Verified 03/06/25 07:01 <Lev Macario MD - Last Filed: 03/06/25 06:36> Review of Systems Review of Systems: All systems reviewed & are unremarkable except as noted in HPI and below <Lev Macario MD - Last Filed: 03/06/25 06:36> Constitutional: Constitutional: Reports as per HPI <Lev Macario MD - Last Filed: 03/06/25 06:36> Eyes: Eyes: Reports no additional eye complaints <Lev Macario MD - Last Filed: 03/06/25 06:36> ENT: Reports system reviewed and no additional complaints, except as documented <Lev Macario MD - Last Filed: 03/06/25 06:36> Cardiovascular: Cardiovascular: Reports as per HPI <Lev Macario MD - Last Filed: 03/06/25 06:36> Comments: CHF, AFib with RVR <Lev Macario MD - Last Filed: 03/06/25 06:36> Respiratory: Respiratory: Reports as per HPI and Reports dyspnea <Lev Macario MD - Last Filed: 03/06/25 06:36> Gastrointestinal: Gastrointestinal: Reports no additional gastrointestinal complaints <Lev Macario MD - Last Filed: 03/06/25 06:36> Genitourinary: Genitourinary: Reports no additional male genitourinary complaints <Lev Macario MD - Last Filed: 03/06/25 06:36> Musculoskeletal: Musculoskeletal: Reports no additional musculoskeletal complaints <Lev Macario MD - Last Filed: 03/06/25 06:36> Integumentary/Breasts: Skin/Breast: Reports system reviewed and no additional complaints, except as docu <Lev Macario MD - Last Filed: 03/06/25 06:36> Neurologic: Reports system reviewed and no additional complaints, except as documented <Lev Macario MD - Last Filed: 03/06/25 06:36> Psychiatric: Psychiatric: Reports no additional psychiatric complaints <Lev Macario MD - Last Filed: 03/06/25 06:36> Endocrine: Endocrine: Reports no additional endocrine complaints <Lev Macario MD - Last Filed: 03/06/25 06:36> Hematologic/Lymphatic: Hematologic/Lymphatic: Reports no additional hematologic/lymphatic complaints <Lev Macario MD - Last Filed: 03/06/25 06:36> Allergic/Immunologic: Allergic/Immunologic: Reports no additional allergic/immunologic complaints <Lev Macario MD - Last Filed: 03/06/25 06:36> PMFSH Past Medical History Medical History: Medical History CAD (coronary artery disease) Ascending aorta dilatation Myocardial infarction Hyperlipidemia Hypertension Alcoholism A-fib Closed rib fracture <Lev Macario MD - Last Filed: 03/06/25 06:36> Social History Social History: Social History Smoking status: Never smoker Second hand tobacco smoke exposure: No Alcohol intake: former Drinks per week: 2 Substance use: never Substance use type: does not use Do You Feel Safe in your Home?: Yes Lack of Transportation: No Lack of Food: Never True Current Housing: I Have Housing Concerned About Future Housing: No Difficulty Paying Gas/Electric Bills: No Difficulty Paying for Meds: No Currently Unemployed: No Education: High School Diploma/GED Difficulty w/ Childcare or Family Care: No Spiritual care concerns: Yes <Lev Macario MD - Last Filed: 03/06/25 06:36> Exam Const: General: healthy appearing <Lev Macario MD - Last Filed: 03/06/25 06:36> Nutritional Appearance: well nourished <Lev Macario MD - Last Filed: 03/06/25 06:36> Orientation/consciousness: patient oriented x3 <Lev Macario MD - Last Filed: 03/06/25 06:36> HENMT: Head: normal to inspection <Lev Macario MD - Last Filed: 03/06/25 06:36> Ears: external ears normal <Lev Macario MD - Last Filed: 03/06/25 06:36> Face/Nose/Sinus: Normal external nose present <Lev Macario MD - Last Filed: 03/06/25 06:36> Face and sinus: normal facial exam <Lev Macario MD - Last Filed: 03/06/25 06:36> Eyes: Conjunctivae: conjunctivae normal <MD Rosaura Foster Last Filed: 03/06/25 06:36> Pupils: Equal, round and reactive pupils present <MD Rosaura Foster Last Filed: 03/06/25 06:36> EOM: EOMs intact bilaterally <MD Rosaura Foster Last Filed: 03/06/25 06:36> Neck: Neck: normal visual inspection <Lev Macario MD - Last Filed: 03/06/25 06:36> Chest: Chest palpation & inspection: normal inspection of the chest <MD Rosaura Foster Last Filed: 03/06/25 06:36> Resp: Effort & Inspection: tachypneic <MD Rosaura Foster Last Filed: 03/06/25 06:36> Auscultation: crackles <MD Rosaura Foster Last Filed: 03/06/25 06:36> Cardio: Rate: tachycardic <MD Rosaura Foster Last Filed: 03/06/25 06:36> Rhythm: abnormal rhythm <MD Rosaura Foster Last Filed: 03/06/25 06:36> Heart sounds: Murmur heart sound present <MD Rosaura Foster Last Filed: 03/06/25 06:36> GI: GI Palp: Yes Soft to palpation <MD Rosaura Foster Last Filed: 03/06/25 06:36> Back/Spine/Pelvis: Back: no CVA tenderness <MD Rosaura Foster Last Filed: 03/06/25 06:36> Skin: General skin exam: normal color <MD Rosaura Foster Last Filed: 03/06/25 06:36> Rashes: no rashes <MD Rosaura Foster Last Filed: 03/06/25 06:36> Wounds: no wounds <MD Rosaura Foster Last Filed: 03/06/25 06:36> Neuro: General: patient oriented x3 <MD Rosaura Foster Last Filed: 03/06/25 06:36> Cranial nerves: Yes Nystagmus not present <Lev Macario MD - Last Filed: 03/06/25 06:36> Speech: normal speech <Lev Macario MD - Last Filed: 03/06/25 06:36> Gait exam (Neuro): Normal gait present <Lev Macario MD - Last Filed: 03/06/25 06:36> Extrem: General: normal to inspection <Lev Macario MD - Last Filed: 03/06/25 06:36> Psych: Mental Status: mental status grossly normal <Lev Macario MD - Last Filed: 03/06/25 06:36> Affect: normal affect <Lev Macario MD - Last Filed: 03/06/25 06:36> Attitude: cooperative <Lev Macario MD - Last Filed: 03/06/25 06:36> Course Course Emergency Course: took over care of the patient at 7:00 a.m.. 69-year-old male with a history of CAD status post stent, paroxysmal atrial fibrillation on Eliquis, CHF presented with CHF exacerbation and AFib with rapid ventricular rate. The patient received 80 mg of Lasix with significant improvement in shortness of breath. The patient had AFib for which he was started on Cardizem drip. He had been on 10 mg an hour in addition to 2 X 10 mg boluses. Did the Cardizem drip was discontinued and the patient received metoprolol 50 mg orally. Subsequently his heart rate has been consistently less than 100. The patient had a troponin which was unremarkable. D-dimer was normal. Discussed with hospitalist who agreed to accept the transfer. <Sree Lazcano MD - Last Filed: 03/06/25 09:27> Vital Signs Vital signs: Vital Signs Pulse Oximetry 90 03/06/25 05:15 Oxygen Delivery Nasal Cannula 03/06/25 05:15 Oxygen Flow Rate 2 03/06/25 05:15 Temperature 37.1 C 03/06/25 05:23 Pulse Rate 86 03/06/25 09:23 Respiratory Rate 20 03/06/25 08:45 Blood Pressure 131/77 03/06/25 09:23 Pulse Oximetry 95 03/06/25 09:11 Oxygen Delivery Nasal Cannula 03/06/25 09:11 Oxygen Flow Rate 2 03/06/25 09:11 <Lev Macario MD - Last Filed: 03/06/25 06:36> Vital Signs Pulse Oximetry 90 03/06/25 05:15 Oxygen Delivery Nasal Cannula 03/06/25 05:15 Oxygen Flow Rate 2 03/06/25 05:15 Temperature 37.1 C 03/06/25 05:23 Pulse Rate 86 03/06/25 09:23 Respiratory Rate 20 03/06/25 08:45 Blood Pressure 131/77 03/06/25 09:23 Pulse Oximetry 95 03/06/25 09:11 Oxygen Delivery Nasal Cannula 03/06/25 09:11 Oxygen Flow Rate 2 03/06/25 09:11 <Sree Lazcano MD - Last Filed: 03/06/25 09:27> MDM - SOB/Dyspnea MDM Narrative Medical decision making narrative: patient is having difficulty breathing however his oxygen saturation is in the upper 90s on room air, he sounds very crackly and he also is in AFib with RVR. He has been tender Cardizem weighted still in AFib with RVR came another 10 of Cardizem push weighted again and still in AFib with RVR then start him on a Cardizem drip starting at 5. Will tritrait as see fit. Will continue on Cardizem drip until he converts and does not confer will probably his transfer to facility with Cardiology. <Lev Macario MD - Last Filed: 03/06/25 06:36> patient is having difficulty breathing however his oxygen saturation is in the upper 90s on room air, he sounds very crackly and he also is in AFib with RVR. He has been tender Cardizem weighted still in AFib with RVR came another 10 of Cardizem push weighted again and still in AFib with RVR then start him on a Cardizem drip starting at 5. Will tritrait as see fit. Will continue on Cardizem drip until he converts and does not confer will probably his transfer to facility with Cardiology. AFib with rapid ventricular rate CHF exacerbation <Sree Lazcano MD - Last Filed: 03/06/25 09:27> Differential Diagnosis Differential diagnosis: Likely congestive heart failure <Lev Macario MD - Last Filed: 03/06/25 06:36> Likely acute exacerbation of chronic obstructive airways disease <Sree Lazcano MD - Last Filed: 03/06/25 09:27> Medical Records Attestation: I reviewed the patient's medical records. <Lev Macario MD - Last Filed: 03/06/25 06:36> Lab Data Attestation: I reviewed the patient's lab results. <Lev Macario MD - Last Filed: 03/06/25 06:36> Result diagrams: 03/06/25 05:22 <Lev Macario MD - Last Filed: 03/06/25 06:36> Labs: Lab Results 03/06/25 03/06/25 03/06/25 Range/Units 05:22 05:44 06:30 D-Dimer 0.41 (0.19-0.50) mg/L Sodium 142 (136-145) mmol/L Potassium 4.1 (3.5-5.1) mmol/L Chloride 107 (98-108) mmol/L Carbon Dioxide 26 (21-32) mmol/L Anion Gap 9 (4-12) mmol/L BUN 36 H (7-18) mg/dL Creatinine 2.02 H (0.70-1.30) mg/dL Estim Creat Clear Calc 32 ml/min Estimated GFR 33 L (59 - ) Glucose 133 H (70-99) mg/dL Calculated Osmolality 304 H (285-295) mOsm/kg Calcium 9.0 (8.5-10.1) mg/dL Magnesium 1.7 L (1.8-2.4) mg/dL Total Bilirubin 0.6 (0.00-1.00) mg/dL AST 22 (15-37) U/L ALT 23 (16-63) U/L Alkaline Phosphatase 67 (46-116) U/L Troponin I 29.0 (0.00-60.4) ng/L NT-Pro-B Natriuret Pep 4718 H (0-125) pg/mL Total Protein 7.4 (6.4-8.2) g/dL Albumin 3.3 L (3.4-5.0) g/dL TSH 2.70 (0.36-3.74) uIU/mL Urine Color Light yellow (Yellow) Urine Appearance Clear (Clear) Urine pH 5.5 (5.0-8.0) Ur Specific [place] 1.010 (1.010-1.020) Urine Protein Trace H (Negative) Urine Glucose (UA) Negative (Negative) Urine Ketones Negative (Negative) Ur Blood (Man) Negative (Negative) Urine Nitrate Negative (Negative) Urine Bilirubin Negative (Negative) Urine Urobilinogen 0.2 (0.2-1.0) mg/dL Leukocyte Esterase Rfl Negative (Negative) THANH/UL Urine RBC None seen (0-2) /hpf Urine WBC None seen (0-3) /hpf Urine Bacteria Rare (None) /hpf 03/06/25 Range/Units 09:23 D-Dimer (0.19-0.50) mg/L Sodium (136-145) mmol/L Potassium (3.5-5.1) mmol/L Chloride (98-108) mmol/L Carbon Dioxide (21-32) mmol/L Anion Gap (4-12) mmol/L BUN (7-18) mg/dL Creatinine (0.70-1.30) mg/dL Estim Creat Clear Calc ml/min Estimated GFR (59 - ) Glucose (70-99) mg/dL Calculated Osmolality (285-295) mOsm/kg Calcium (8.5-10.1) mg/dL Magnesium (1.8-2.4) mg/dL Total Bilirubin (0.00-1.00) mg/dL AST (15-37) U/L ALT (16-63) U/L Alkaline Phosphatase (46-116) U/L Troponin I Pending (0.00-60.4) ng/L NT-Pro-B Natriuret Pep (0-125) pg/mL Total Protein (6.4-8.2) g/dL Albumin (3.4-5.0) g/dL TSH (0.36-3.74) uIU/mL Urine Color (Yellow) Urine Appearance (Clear) Urine pH (5.0-8.0) Ur Specific [place] (1.010-1.020) Urine Protein (Negative) Urine Glucose (UA) (Negative) Urine Ketones (Negative) Ur Blood (Man) (Negative) Urine Nitrate (Negative) Urine Bilirubin (Negative) Urine Urobilinogen (0.2-1.0) mg/dL Leukocyte Esterase Rfl (Negative) THANH/UL Urine RBC (0-2) /hpf Urine WBC (0-3) /hpf Urine Bacteria (None) /hpf <Lev Macario MD - Last Filed: 03/06/25 06:36> Lab Results 03/06/25 03/06/25 03/06/25 Range/Units 05:22 05:44 06:30 D-Dimer 0.41 (0.19-0.50) mg/L Sodium 142 (136-145) mmol/L Potassium 4.1 (3.5-5.1) mmol/L Chloride 107 (98-108) mmol/L Carbon Dioxide 26 (21-32) mmol/L Anion Gap 9 (4-12) mmol/L BUN 36 H (7-18) mg/dL Creatinine 2.02 H (0.70-1.30) mg/dL Estim Creat Clear Calc 32 ml/min Estimated GFR 33 L (59 - ) Glucose 133 H (70-99) mg/dL Calculated Osmolality 304 H (285-295) mOsm/kg Calcium 9.0 (8.5-10.1) mg/dL Magnesium 1.7 L (1.8-2.4) mg/dL Total Bilirubin 0.6 (0.00-1.00) mg/dL AST 22 (15-37) U/L ALT 23 (16-63) U/L Alkaline Phosphatase 67 (46-116) U/L Troponin I 29.0 (0.00-60.4) ng/L NT-Pro-B Natriuret Pep 4718 H (0-125) pg/mL Total Protein 7.4 (6.4-8.2) g/dL Albumin 3.3 L (3.4-5.0) g/dL TSH 2.70 (0.36-3.74) uIU/mL Urine Color Light yellow (Yellow) Urine Appearance Clear (Clear) Urine pH 5.5 (5.0-8.0) Ur Specific [place] 1.010 (1.010-1.020) Urine Protein Trace H (Negative) Urine Glucose (UA) Negative (Negative) Urine Ketones Negative (Negative) Ur Blood (Man) Negative (Negative) Urine Nitrate Negative (Negative) Urine Bilirubin Negative (Negative) Urine Urobilinogen 0.2 (0.2-1.0) mg/dL Leukocyte Esterase Rfl Negative (Negative) THANH/UL Urine RBC None seen (0-2) /hpf Urine WBC None seen (0-3) /hpf Urine Bacteria Rare (None) /hpf 03/06/25 Range/Units 09:23 D-Dimer (0.19-0.50) mg/L Sodium (136-145) mmol/L Potassium (3.5-5.1) mmol/L Chloride (98-108) mmol/L Carbon Dioxide (21-32) mmol/L Anion Gap (4-12) mmol/L BUN (7-18) mg/dL Creatinine (0.70-1.30) mg/dL Estim Creat Clear Calc ml/min Estimated GFR (59 - ) Glucose (70-99) mg/dL Calculated Osmolality (285-295) mOsm/kg Calcium (8.5-10.1) mg/dL Magnesium (1.8-2.4) mg/dL Total Bilirubin (0.00-1.00) mg/dL AST (15-37) U/L ALT (16-63) U/L Alkaline Phosphatase (46-116) U/L Troponin I Pending (0.00-60.4) ng/L NT-Pro-B Natriuret Pep (0-125) pg/mL Total Protein (6.4-8.2) g/dL Albumin (3.4-5.0) g/dL TSH (0.36-3.74) uIU/mL Urine Color (Yellow) Urine Appearance (Clear) Urine pH (5.0-8.0) Ur Specific [place] (1.010-1.020) Urine Protein (Negative) Urine Glucose (UA) (Negative) Urine Ketones (Negative) Ur Blood (Man) (Negative) Urine Nitrate (Negative) Urine Bilirubin (Negative) Urine Urobilinogen (0.2-1.0) mg/dL Leukocyte Esterase Rfl (Negative) THANH/UL Urine RBC (0-2) /hpf Urine WBC (0-3) /hpf Urine Bacteria (None) /hpf <Sree Lazcano MD - Last Filed: 03/06/25 09:27> ABG Data ABG results: 03/06/25 06:05 VBG pH 7.41 VBG pCO2 34.0 L VBG pO2 28.0 L VBG HCO3 21.0 L O2 Delivery Device Nasal cannula O2 Liters/Min 2.0 <Lev Macario MD - Last Filed: 03/06/25 06:36> 03/06/25 06:05 VBG pH 7.41 VBG pCO2 34.0 L VBG pO2 28.0 L VBG HCO3 21.0 L O2 Delivery Device Nasal cannula O2 Liters/Min 2.0 <Sree Lazcano MD - Last Filed: 03/06/25 09:27> Imaging Data Attestation: I personally reviewed and interpreted this imaging study as follows: <Lev Macario MD - Last Filed: 03/06/25 06:36> Discharge Plan Discharge Clinical Impression: Atrial fibrillation with RVR, CHF exacerbation <Lev Macario MD - Last Filed: 03/06/25 06:36> Patient Disposition: [facility] <Lev Macario MD - Last Filed: 03/06/25 06:36> Condition: Stable <Lev Macario MD - Last Filed: 03/06/25 06:36> Patient Language: Serbian <Lev Macario MD - Last Filed: 03/06/25 06:36> Prescriptions: No Action nifedipine 30 mg tablet extended release 24hr 30 mg PO DAILY atorvastatin 80 mg tablet 80 mg PO QPM torsemide 10 mg tablet 10 mg PO DAILY ezetimibe 10 mg tablet 10 mg PO DAILY duloxetine 30 mg capsule,delayed release(DR/EC) 30 mg PO DAILY fenofibric acid (choline) 45 mg capsule,delayed release(DR/EC) 45 mg PO DAILY hydrocodone-acetaminophen 10-325 mg tablet 1 tablet PO Q8H PRN (Reason: pain) Qty: 20 0RF Rx Instructions: 1/2-1 tab per dose Eliquis 5 mg Tablet 5 mg PO BID Patient Comments: pt gets eliquis samples from Dr. Anne Kendrick's office ([phone], ext [phone]). has been taking since 03/2023 per momo trazodone 50 mg Tablet 50 mg PO HS PRN (Reason: Insomnia) Qty: 1 0RF thiamine HCl (vitamin B1) [Vitamin B-1] 100 mg Tablet 100 mg PO QAM Qty: 1 0RF magnesium oxide 400 mg (241.3 mg magnesium) Tablet 400 mg PO BID Qty: 1 0RF pantoprazole 40 mg Tablet,Delayed Release (Dr/Ec) 40 mg PO QAM Qty: 1 0RF folic acid 1 mg Tablet 1 mg PO DAILY Qty: 1 0RF metoprolol tartrate 25 mg Tablet 25 mg PO Q12HR Qty: 1 0RF multivitamin with folic acid [Thera] 400 mcg Tablet 1 tablet PO QAM Qty: 1 0RF acetaminophen 325 mg Tablet 650 mg PO Q4H PRN (Reason: Mild Pain (1-3) Or Fever) Qty: 2 0RF <Lev Macario MD - Last Filed: 03/06/25 06:36> Follow-up/Referrals: Watt,Anne Campos MD [Primary Care Provider] - <Lev Macario MD - Last Filed: 03/06/25 06:36> Time of Disposition: 09:26 <Lev Macario MD - Last Filed: 03/06/25 06:36> 09:26 <Sree Lazcano MD - Last Filed: 03/06/25 09:27>
[2025-03-06 06:43] LABS: Add Urine Microscopic? YES; Appearance Urine Clear (Clear); Bilirubin Urine Negative (Negative); Blood Urine Negative (Negative); Color Urine Light Yellow (Yellow); Glucose Urine UA Negative (Negative); Ketones Urine Negative (Negative); Leukocyte Esterase Ur Negative LEU/UL (Negative); Nitrate Urine Negative (Negative); Protein Urine Trace (Negative); Urobilinogen Urine 0.2 mg/dL (0.2-1.0); pH Urine 5.5 (5.0-8.0)
[2025-03-06 06:51] LABS: Bacteria Urine Rare /hpf; RBC Urine None seen /hpf (0-2); WBC Urine None seen /hpf (0-3)
--- NOTE | 2025-03-06 07:04 | PC.NURSE ---
REPORT GIVEN TO [facility]
[2025-03-06] MEDS: METOPROLOL TARTRATE 50 MG TAB PO ×2 (07:47→20:43)
[2025-03-06] MEDS: APIXABAN 2.5 MG TABLET 5 MG PO (07:47)
[2025-03-06] MEDS: MAGNESIUM SULF 2 GM/WATER 50ML 2 GM/50 ML BAG IVPB (07:50)
[2025-03-06 09:49] LABS: Troponin I 24.3 ng/L (0.00-60.4)
--- NOTE | 2025-03-06 09:57 | P.HP_ITS ---
H&P: HPI History of Present Illness Date/Time: 03/06/25 09:57 Chief Complaint: shortness of breath/dyspnea Narrative: This is a 69-year-old male with a significant past medical history of coronary artery disease, ascending aorta dilatation, NV, hyperlipidemia, hypertension, alcoholism, AFib who presented to the hospital with complaints of shortness of breath. Patient reported that he was having shortness a breath that lasted 2-3 days but now has gotten progressively worse this morning. He came in for further evaluation. Workup in the hospital included a chest x-ray which showed linear atelectasis or scarring in the left lung base otherwise clear lungs. Initial labs showed a normal D-dimer of 0.41, creatinine 2.02, EGFR 33, blood sugar 133, magnesium 1.7, troponin 29.0> 24.3, proBNP 4718, TSH 2.70. UA was obtained which showed trace urine protein otherwise negative. Initial EKG showing AFib with RVR with a rate of 128, QTC 442. He was started on a Cardizem infusion and then was weaned off while in the ED. he was given metoprolol 50 mg and now his rate has been more controlled in the 80s to 90s. patient states that he used an albuterol inhaler which was prescribed for him in the past which likely could be contributing to his AFib with RVR. he denies any recent illness or sick contacts. He also denies any fever, chills, nausea, vomiting, diarrhea, abdominal pain, chest pain, shortness a breath. He states that he stopped drinking alcohol 2 weeks ago and does have a notable tremor in bilateral upper extremities. He was also given a dose of 40 mg IV push Lasix, 2 g of Mag, 125 m g IV push Solu-Medrol, and 500 mL of normal saline while in the ED. Review of Systems Review of Systems: All systems reviewed & are unremarkable except as noted in HPI and below PMFSH Past Medical History Medical History (Updated 03/06/25 @ 11:14 by Maite Lockett APRN) Tremor of both hands Hypothyroidism CAD (coronary artery disease) Ascending aorta dilatation Myocardial infarction Hyperlipidemia Hypertension Alcoholism A-fib Closed rib fracture Social History Social History Smoking status: Never smoker Second hand tobacco smoke exposure: No Alcohol intake: former Drinks per week: 2 Substance use: never Substance use type: does not use Do You Feel Safe in your Home?: Yes Lack of Transportation: No Lack of Food: Never True Current Housing: I Have Housing Concerned About Future Housing: No Difficulty Paying Gas/Electric Bills: No Difficulty Paying for Meds: No Currently Unemployed: No Education: High School Diploma/GED Difficulty w/ Childcare or Family Care: No Spiritual care concerns: Yes Meds Home Medications and Allergies Home Medications ?Medication ?Instructions ?Recorded ?Confirmed ?Type atorvastatin 80 mg tablet 80 mg PO QPM 07/01/23 03/06/25 History duloxetine 30 mg capsule,delayed 30 mg PO DAILY 07/01/23 03/06/25 History release ezetimibe 10 mg tablet 10 mg PO DAILY 07/01/23 03/06/25 History fenofibric acid (choline) 45 mg 45 mg PO DAILY 07/01/23 03/06/25 History capsule,delayed release nifedipine 30 mg tablet,extended 30 mg PO DAILY 07/01/23 03/06/25 History release 24 hr torsemide 10 mg tablet 10 mg PO DAILY 07/01/23 03/06/25 History apixaban 5 mg tablet (Eliquis) 5 mg PO BID 10/25/24 03/06/25 History multivitamin with folic acid 400 1 tablet PO QAM #1 tablet 10/27/24 03/06/25 Rx mcg tablet (Thera) trazodone 50 mg tablet 50 mg PO HS PRN Insomnia #1 tablet 10/27/24 03/06/25 Rx acetaminophen 325 mg tablet 650 mg (2 x 325 mg) PO Q4H PRN 11/09/24 03/06/25 Rx Mild Pain (1-3) Or Fever #2 tabs allopurinol 100 mg tablet 100 mg PO DAILY 03/06/25 03/06/25 History gabapentin 300 mg capsule 300 mg PO DAILY 03/06/25 03/06/25 History levothyroxine 125 mcg tablet 137 mcg PO DAILY@0630 03/06/25 03/06/25 History lisinopril 10 mg tablet 10 mg PO BID 03/06/25 03/06/25 History metoprolol tartrate 25 mg tablet 50 mg PO Q12HR 03/06/25 03/06/25 History Allergies Allergy/AdvReac Type Severity Reaction Status Date / Time magnesium sulfate AdvReac Intermediate Flushing Verified 03/06/25 07:01 Vital Signs Vital Signs - 24 hr 03/06/25 05:15 03/06/25 05:23 03/06/25 05:23 Temperature 98.7 F Pulse Rate 80 124 H Respiratory Rate 42 H 24 H Blood Pressure 157/83 H Pulse Oximetry 90 95 97 Oxygen Delivery Nasal Cannula Nasal Cannula Nasal Cannula Oxygen Flow Rate 2 2 2 03/06/25 05:30 03/06/25 05:31 03/06/25 05:37 Temperature Pulse Rate 122 H 135 H 114 H Respiratory Rate 31 H 42 H 33 H Blood Pressure 167/82 H 155/92 H Pulse Oximetry 95 97 94 Oxygen Delivery Nasal Cannula Nasal Cannula Nasal Cannula Oxygen Flow Rate 2 2 2 03/06/25 05:46 03/06/25 05:50 03/06/25 06:01 Temperature Pulse Rate 102 H 118 H 110 H Respiratory Rate 40 H 16 Blood Pressure 142/89 H 142/89 H 151/80 H Pulse Oximetry 96 95 Oxygen Delivery Nasal Cannula Nasal Cannula Oxygen Flow Rate 2 2 03/06/25 06:16 03/06/25 06:30 03/06/25 06:46 Temperature Pulse Rate 104 H 94 101 H Respiratory Rate 24 H 25 H 19 Blood Pressure 136/77 155/80 H 123/65 Pulse Oximetry 96 97 100 Oxygen Delivery Nasal Cannula Nasal Cannula Nasal Cannula Oxygen Flow Rate 2 2 2 03/06/25 06:47 03/06/25 07:00 03/06/25 07:00 Temperature Pulse Rate 103 H 109 H 98 Respiratory Rate 22 H 22 H Blood Pressure 123/65 137/74 Pulse Oximetry 100 98 Oxygen Delivery Nasal Cannula Oxygen Flow Rate 2 03/06/25 07:01 03/06/25 07:15 03/06/25 07:17 Temperature Pulse Rate 94 106 H 106 H Respiratory Rate 32 H 19 25 H Blood Pressure 139/81 Pulse Oximetry 97 98 99 Oxygen Delivery Nasal Cannula Oxygen Flow Rate 2 03/06/25 07:30 03/06/25 07:31 03/06/25 07:45 Temperature Pulse Rate 97 110 H 101 H Respiratory Rate 22 H 20 18 Blood Pressure 140/66 133/75 Pulse Oximetry 99 99 96 Oxygen Delivery Nasal Cannula Oxygen Flow Rate 2 03/06/25 07:46 03/06/25 07:47 03/06/25 07:50 Temperature Pulse Rate 110 H 98 104 H Respiratory Rate 20 Blood Pressure 133/75 Pulse Oximetry 96 Oxygen Delivery Oxygen Flow Rate 03/06/25 08:00 03/06/25 08:01 03/06/25 08:02 Temperature Pulse Rate 100 106 H 104 H Respiratory Rate 22 H 20 20 Blood Pressure 146/60 H Pulse Oximetry 95 96 95 Oxygen Delivery Nasal Cannula Oxygen Flow Rate 2 03/06/25 08:08 03/06/25 08:15 03/06/25 08:16 Temperature Pulse Rate 105 H 97 108 H Respiratory Rate 18 20 Blood Pressure 143/93 H Pulse Oximetry 95 94 Oxygen Delivery Nasal Cannula Oxygen Flow Rate 2 03/06/25 08:30 03/06/25 08:31 03/06/25 08:45 Temperature Pulse Rate 95 102 H 88 Respiratory Rate 23 H 17 20 Blood Pressure 138/87 Pulse Oximetry 96 94 96 Oxygen Delivery Nasal Cannula Oxygen Flow Rate 2 03/06/25 09:00 03/06/25 09:01 03/06/25 09:10 Temperature 98.6 F Pulse Rate 90 100 85 Respiratory Rate 18 22 H Blood Pressure 143/85 H Pulse Oximetry 97 96 Oxygen Delivery Nasal Cannula Oxygen Flow Rate 2 03/06/25 09:11 03/06/25 09:11 03/06/25 09:15 Temperature Pulse Rate 85 86 Respiratory Rate 22 H Blood Pressure 143/85 H Pulse Oximetry 95 96 Oxygen Delivery Nasal Cannula Oxygen Flow Rate 2 03/06/25 09:16 03/06/25 09:23 Temperature Pulse Rate 84 86 Respiratory Rate 24 H Blood Pressure 131/77 131/77 Pulse Oximetry 96 Oxygen Delivery Oxygen Flow Rate Exam Narrative: General: In no acute distress, well nourished Head: atraumatic, no encephalopathy Eyes: PERRLA, sclera clear ENT: moist mucous membranes, nasal passages clear Neck: supple, no JVD, no adenopathy, trachea midline Cardiac: Normal S1 and S2. A fib rate controlled, No murmur, gallops or friction rubs, peripheral pulses intact. Respiratory: Lungs clear to auscultation, no adventitious lung sounds, currently on room air Gastrointestinal: soft, non-distended, non-tender, normoactive bowel sounds. : voiding without difficulty. Extremities: moves all extremities well, no edema Skin: clean, dry, intact. No wounds or lesions. Neuro: Alert and oriented x4, cranial nerves intact, no neuro deficits. Tremors noted to BUE Psych: normal mood, normal affect, interactive H&P: Results Labs Labs: BMP 03/06/25 05:22 Sodium 142 Potassium 4.1 Chloride 107 Carbon Dioxide 26 BUN 36 H Creatinine 2.02 H Glucose 133 H Calcium 9.0 Cardiac Enzymes 03/06/25 03/06/25 Range/Units 05:22 09:23 Troponin I 29.0 24.3 (0.00-60.4) ng/L Liver Function 03/06/25 Range/Units 05:22 Total Bilirubin 0.6 (0.00-1.00) mg/dL AST 22 (15-37) U/L ALT 23 (16-63) U/L Alkaline Phosphatase 67 (46-116) U/L Albumin 3.3 L (3.4-5.0) g/dL Urine 03/06/25 Range/Units 06:30 Urine Color Light yellow (Yellow) Urine Appearance Clear (Clear) Urine pH 5.5 (5.0-8.0) Ur Specific [place] 1.010 (1.010-1.020) Urine Protein Trace H (Negative) Urine Glucose (UA) Negative (Negative) Imaging Chest x-ray: Radiologist's impression: Portable chest x-ray Comparison: 11/06/2024 Clinical History: CHF Findings: There is linear atelectasis or scarring left lung base. Right lung clear. Cardiomediastinal silhouette is stable. Bones and soft tissues are unremarkable. Impression: Linear atelectasis or scarring left lung base, otherwise clear lungs. Reviewed, dictated and finalized at location . Assessment and Plan Assessment and plan (1) Atrial fibrillation with RVR: Code(s): I48.91 - Unspecified atrial fibrillation Status: Acute Assessment and Plan: patient presented with shortness of breath/ dyspnea and was found to be in AFib RVR with a rate of 128. He was started on Cardizem infusion while in the ED which brought his rate down and then he was transitioned to metoprolol 50 mg oral. His rate is now in the 80s to 90s. * continue metoprolol and Eliquis * continue cardiac monitoring (2) CHF exacerbation: Code(s): I50.9 - Heart failure, unspecified Status: Acute Assessment and Plan: * chest x-ray showed linear atelectasis or scarring in the left lung base otherwise clear lungs * proBNP 4718 * patient was given 1 dose of IV push Lasix 40 mg while in the ED * troponin 29.0> 24.3 * continue torsemide * Patient had echocardiogram about 4 months ago and follows with [facility] (3) Hyperlipidemia: Code(s): E78.5 - Hyperlipidemia, unspecified Status: Acute Assessment and Plan: * continue atorvastatin, Zetia, and Eliquis (4) CAD (coronary artery disease): Code(s): I25.10 - Atherosclerotic heart disease of tolowa dee-ni' coronary artery without angina pectoris Status: Acute Assessment and Plan: * history of NV with coronary stents x2 * continue Eliquis, atorvastatin (5) Hypertension: Code(s): I10 - Essential (primary) hypertension Status: Acute Assessment and Plan: * blood pressure ranging 131/77 to 143/93 * continue nifedipine and lisinopril (6) Hypomagnesemia: Code(s): E83.42 - Hypomagnesemia Status: Acute Assessment and Plan: * magnesium 1.7 initially * patient was given 2 g of magnesium while in the ED * continue cardiac monitoring (7) Alcoholism: Code(s): F10.20 - Alcohol dependence, uncomplicated Status: Acute Assessment and Plan: history of alcohol abuse. he states he quit drinking 2 weeks ago. He reports that he only drank 24 oz malt liquor daily when he did drink. He does have tremors to bilateral upper extremities at baseline. * continue CIWA protocol * continue folic acid and multivitamin * continue thiamine * check ETOH level * monitor electrolytes (8) Hypothyroidism: Code(s): E03.9 - Hypothyroidism, unspecified Status: Acute Assessment and Plan: * Continue Synthroid (9) CKD (chronic kidney disease): Code(s): N18.9 - Chronic kidney disease, unspecified Status: Inactive Assessment and Plan: * initial creatinine 2.07 * baseline creatinine 1.75-1.99 * patient was given 500 mL of normal saline while in the ED * continue to trend * avoid nephrotoxic medication and seeing with IV contrast Quality VTE Prophylaxis VTE prophylaxis: pharmacologic ordered Hospitalist MIPS Advance Care Plan I have confirmed that the patient's Advanced Care Plan is present, code status is documented, or surrogate decision maker is listed in patient medical record.: Yes Medication Reconciliation I have utilized all available resources to obtain, update and review the patients current medications (includes all prescriptions, OTC, herbals, cannabis, and nutritional supplements).: Yes
--- NOTE | 2025-03-06 10:10 | ADMGEN ---
This patient, Claudio Devries, was admitted to 2nd Floor Room 207-2. Patient/family oriented to hospital policies and general routines including ID bracelet, bed and alarms, visiting hours, pain management, procedures, bathroom and other care routines, personal items, smoking policy, room service/diet, and visiting hours. Information on how to activate the Rapid Response Team has been discussed. Patient/Family are encouraged to report perceived risks to care and to ask questions if they do not understand what they are told or what they should do.
[2025-03-06 12:33] LABS: Troponin I 21.9 ng/L (0.00-60.4)
[2025-03-06] MEDS: DULoxetine HCL 30 MG CAPSULE.DR PO (13:37)
[2025-03-06] MEDS: GABAPENTIN 300 MG CAPSULE PO (13:37)
--- NOTE | 2025-03-06 14:00 | ECHO_ITS ---
Patient Info Name: Claudio Devries Age: 69 years : 1955 Gender: Male Ht: 70 in Wt: 180 lbs BSA: 2.02 m2 HR: 86 bpm BP: 152 / 68 mmHg Heart Rhythm: Atrial Fibrillation Technical Quality: Good Exam Date: 03/06/2025 2:22 PM Exam Location: Echo Lab Patient Status: Inpatient Admit Date: 03/06/2025 Staff Ordering Physician: Maite Lockett APRN Cap Jewel Plate Assembler: Dariana Garcia RDCS Attending Provider: Cain Mazariegos MD Exam Type: CA echo dop color flow w con Study Info Indications - Afib Complete two-dimensional, color flow and Doppler transthoracic echocardiogram is performed with contrast to opacify the left ventricle and to improve the deliniation of the left ventricle endocardial borders. Contrast/Agitated Saline Contrast/Ag. Saline: Definity Amount: 4.00 ml IV Access Condition: patent with no signs of infiltration Summary 1. Definity contrast administered improved wall motion interpretation. 2. Left ventricular chamber dimension is normal. 3. Left ventricular systolic function is normal, estimated at 60-65%. 4. The left ventricular diastolic function is normal. 5. E/e' 9 is minimally elevated. 6. Atrial fibrillation. 7. Left atrial chamber dimension is severely enlarged. 8. Right atrial chamber dimension is moderately enlarged. 9. There is moderate aortic valve sclerosis. 10. There is mild aortic valve stenosis with a peak velocity of 190.75 cm/s, mean gradient of 4 mmHg, and aortic valve area of 1.95 cm2. 11. There is mild mitral valve regurgitation. 12. There is mild tricuspid valve regurgitation. 13. Severe pulmonary hypertension, estimated pulmonary arterial systolic pressure is 63 mmHg. 14. The aortic root size at the sinus of Valsalva is moderately dilated at 4.5 cm. 15. Dilated inferior vena cava with >50% collapse upon inspiration consistent with elevated right atrial pressure, 10 mmHg. Left Ventricle Definity contrast administered improved wall motion interpretation. E/e' 9 is minimally elevated. Atrial fibrillation. Left ventricular chamber dimension is normal. Left ventricular systolic function is normal, estimated at 60-65%. The left ventricular diastolic function is normal. Right Ventricle Right ventricular systolic function is normal and with normal TAPSE 2.3 cm. Right ventricular chamber dimension is normal. Left Atria Left atrial chamber dimension is severely enlarged. Right Atria Right atrial chamber dimension is moderately enlarged. Aortic Valve The aortic valve is trileaflet. There is moderate aortic valve sclerosis. There is mild aortic valve stenosis with a peak velocity of 190.75 cm/s, mean gradient of 4 mmHg, and aortic valve area of 1.95 cm2. There is no aortic valve regurgitation. Pulmonic Valve There is no pulmonic regurgitation. Mitral Valve There is no mitral valve stenosis. There is mild mitral valve regurgitation. Tricuspid Valve There is mild tricuspid valve regurgitation. Severe pulmonary hypertension, estimated pulmonary arterial systolic pressure is 63 mmHg. Pericardium/Pleural There is no pericardial effusion. Inferior Vena Cava Dilated inferior vena cava with >50% collapse upon inspiration consistent with elevated right atrial pressure, 10 mmHg. Aorta The aortic root size at the sinus of Valsalva is moderately dilated at 4.5 cm. Left Ventricular Outflow Tract Name Value Normal LVOT 2D LVOT Diameter 2.07 cm LVOT Doppler LVOT Peak Velocity 111.90 cm/s LVOT Peak Gradient 5 mmHg LVOT Mean Gradient 3 mmHg LVOT VTI 19.42 cm LVOT VTI/AV VTI Ratio 0.58 LVOT Stroke Volume 65.19 ml LVOT CO 7.57 l/min LVOT CI 3.75 L/min/m2 Pulmonic Valve Name Value Normal RVOT Doppler RVOT Peak Gradient 1 mmHg PV Doppler PV Peak Velocity 84.34 cm/s PV Peak Gradient 3 mmHg Mitral Valve Name Value Normal MV Doppler MV Decel [place] 590.70 cm/s2 MV PHT 0 s MV Area (PHT) 4.28 cm2 4.00-5.00 MV Diastolic Function MV E Peak Velocity 104.78 cm/s MV A Peak Velocity 1.37 cm/s MV E/A 76.71 MV Decel Time 0 s MV Annular TDI MV Septal e' Velocity 10.10 cm/s >=8.00 MV E/e' (Septal) 10.37 <=8.00 MV Lateral e' Velocity 12.41 cm/s >=10.00 MV E/e' (Lateral) 8.45 <=8.00 MV e' Average 11.25 MV E/e' (Average) 9.41 Tricuspid Valve Name Value Normal TV Regurgitation Doppler TR Peak Velocity 364.78 cm/s TR Peak Gradient 43 mmHg Estimated PAP/RSVP RA Pressure 10 mmHg <=5 PA Systolic Pressure 63 mmHg <36 RV Systolic Pressure 63 mmHg <36 TV Annular TDI TV Lateral Nancie s' Velocity 12.06 cm/s 9.50-18.70 Aortic Valve Name Value Normal AV Doppler AV Peak Velocity 190.75 cm/s AV Peak Gradient 7 mmHg AV Mean Gradient 4 mmHg AV VTI 33.39 cm AV Area (Cont Eq VTI) 1.95 cm2 >=3.00 AV Area (Cont Eq Tay) 1.97 cm2 AV V1/V2 Ratio 0.59 AV Regurgitation 2D LVOT Area 3.36 cm2 AV Regurgitation Doppler AR Decel Time 2 s AR Decel [place] 240.43 cm/s2 AR PHT 0 s Ventricles Name Value Normal LV Dimensions 2D/MM IVS Diastolic Thickness (2D) 1.06 cm 0.60-1.00 LVID Diastole (2D) 4.42 cm 4.20-5.80 LVIW Diastolic Thickness (2D) 1.09 cm 0.60-1.00 LVID Systole (2D) 3.03 cm 2.50-4.00 LVOT Diameter 2.07 cm LV Mass (2D Cubed) 164.98 g 88.00-224.00 LV Mass Index (2D Cubed) 0.01 g/cm2 0.00-0.01 Relative Wall Thickness (2D) 0.50 LV Fractional Shortening/Ejection Fraction 2D/MM LV Fractional Shortening (2D) 31 % 25-43 LV EF (2D Teicholz) 60 % 52-72 LV Diastolic Volume (4C MOD) 185.30 ml LV EF (4C MOD) 63 % LV Diastolic Volume (2C MOD) 176.19 ml LV EF (2C MOD) 64 % LV Diastolic Volume (BP MOD) 185.74 ml 62.00-150.00 LV Diastolic Volume Index (BP MOD) 0.09 l/m2 0.03-0.07 LV Systolic Volume (BP MOD) 67.24 ml 21.00-61.00 LV Systolic Volume Index (BP MOD) 0.03 l/m2 0.01-0.03 LV EF (BP MOD) 64 % 52-72 LV Diastolic Length (4C) 8.91 cm LV Systolic Length (4C) 7.13 cm LV Stroke Volume (4C MOD) 116.91 ml Atria Name Value Normal LA Dimensions LA Volume (4C A-L) 137.48 ml LA Volume (BP A-L) 160.51 ml RA Dimensions RA Area (4C) 27.47 cm2 <=18.00 Report Signatures
[2025-03-06] MEDS: PERFLUTREN LIPID MICROSPHERES 1.5 ML VIAL DILUTED TO 10 ML TOTAL VOLUME IV PUSH (14:55)
--- NOTE | 2025-03-06 15:46 | IVDEFINITY ---
Prior to administration of IV Definity the patient was educated on the risks and benefits of the imaging enhancing agent including potential adverse side effects. The patient verbalized understanding. Allergies were verified. No exclusion criteria were identified and at least one of the following inclusion criteria were met: 1) physician request, 2) patient technically difficult to image (per the [place] [employer] Echocardi[employer] guidelines of two or more segments not discernable within the apical view), or 3) questionable left ventricular function. ?
--- OUTSIDE RECORDS SUMMARY | 2025-03-06 16:26 | XMS_ITS | Encounter Summary ---
Author Organization [facility] Address [address] [place] [address] Care Team Providers Care Commercial Lines Account Executive Name Role Phone Emeka Garcia MD Unavailable [phone] New Referring, Provider Primary Care Provider Un available Anne Kendrick MD Primary Care Provider [phone] Viv Seo MD Unavailable Kahlil Peres MD Primary Care Provider [phone] Encounter Details Date Type Department Care Team (Latest Contact Info) Description 10/02/2023 Hospital Encounter Tyler Bennett MD [address] [place] [address] [phone] Social History Tobacco Use Types Packs/Day Years Used Date Smoking Tobacco: Never Smokeless Tobacco: Never Alcohol Use Standard Drinks/Week Comments Yes 16.7 (1 standard drink = 0.6 oz pure alcohol) [facility] Utilities Answer Date Recorded In the past 12 months has e [employer], gas, oil, or water [employer] threatened to shut off services in your [...] place to sleep or slept in a care home (including now)? No 12/27/2023 Housing Stability [...] any time in the past 12 m [facility], were you homeless or living in a care home (including now)? Patient unable to answer 11/30/2024 Sex and Gender Information Value Date Recorded Sex Assigned at Male 12/04/2024 9:12 AM [employer] Legal Sex Male 5:48 PM [employer] Gender Identity Not on file Sexual Orientation [...] 6:00 PM Reyes Gusman RN Active * [place] Suicide Severity Rating Scale (Screener/Recent Self-Report) Question Answer Date of Assessment Author Status 1. Wish to be (Past 1 Month) No 11/30/2024 6:00 PM Ella Gusman RN Acti ve 2. Non-Specific Active Suicidal Thoughts (Past 1 Month) No 11/30/2024 6:00 PM Ella Gusman RN Acti ve 6. Suicidal Behavior (Lifetime) No 11/30/2024 6:00 PM Elal Gusman RN Acti ve documented as of [...] Description 05/01/2025 12:30 PM CDT Office Visit [facility] [address] [place] [phone] Melany Oseguera PA-C [address] [place] [address] [phone] 05/15/2025 8:30 AM CDT Appointment [facility] [place] [address] [place] [address] Viv Seo MD [address] [place] [address] [phone] 05/20/2025 2:45 PM CDT Office Visit [facility] [address] [place] [phone] Viv Seo MD [address] [place] [address] [phone] documented as of this encounter Goals Goal [...] Rule Out 12/19/2023 12/19/2023 12/19/2023 6:05 AM [employer] COVID-19 Rule Out 12/26/2023 12/26/2023 12/26/2023 5:39 PM [employer] documented as of this encounter Care Teams Commercial Lines Account Executive Relationship Specialty Start Date End Date New Referring, Provider PCP - General UNKNOWN PHYSICIAN SPECIALTY 10/02/23 10/04/23 Anne Kendrick MD [address] [place] [phone] PCP - General FAMILY PRACTICE 10/05/23 11/29/24 Kahlil Peres MD [address], [place] [phone] PCP - General FAMILY PRACTICE 11/30/24 Emeka Garcia MD [address] [place] [phone] Consulting Physician CLINICAL CARDIAC ELECTROPHYSIOLOGY 03/30/23 Viv Seo MD [address] [place] [address] Consulting Physician CARDIOVASCULAR DISEASE 05/11/24 documented as of this encounter
--- OUTSIDE RECORDS SUMMARY | 2025-03-06 16:26 | XMS_ITS | Clinical Summary ---
Author Organization [facility] Address [address] [place] [address] Care Team Providers Care Head Mixer Name Role Phone Emeka Garcia MD Unavailable [phone] Viv Seo MD Unavailable Kahlil Peres MD Primary Care Provider [phone] Allergies Active Allergy Reactions Criticality Noted Date [...] 11/30/2024 NSTEMI (non-ST elevated myoc ardial infarction) ([facility]) 12/26/2023 Multiple fractures of ribs, bilateral, initial encounter for closed fracture 10/02/2023 Fall 10/02/2023 SOB (shortness of breath) on exertion 12/30/2022 Encounters Date Type Department Care Team Description 02/13/2025 Telephone [facility] [address] [place] [address] Emeka Garcia MD Reschedule 12/19/2024 Telephone [facility] [address] [place] [address] Emeka Garcia MD Error 11/30/2024 2:31 PM BRONC BUSTER - 12/18/2024 12:39 PM BRONC BUSTER Hospital Encounter [facility] Neurology [address] [place] [address] Lara Ramos MD Ahmed, Asad N, MD Missula, Venkata R Karthik, MD Anunobi, Nnamdi, MD Udeozo, Obiora I, MD Duval, Jesu Sims, MD Hoffman, Donn More, Discharge Disposition: [facility] Facility from Last 3 Months Immunizations Immunization Administration Dates Next Due Tdap (Boostrix) 07/11/2024 Tdap (Generic) 06/03/2015 Social History Tobacco Use Types Packs/Day Years Used Date Smoking Tobacco: Never Smokeless Tobacco: Never Tobacco Cessation:Counseling Given: Not Answered Alcohol Use Standard Drinks/Week Comments Yes 16.7 (1 standard drink = 0.6 oz pure alcohol) [facility] Utilities Answer Date Recorded In the past 12 months has e [employer], gas, oil, or water [employer] threatened to shut off services in your [...] place to sleep or slept in a detention (including now)? No 12/27/2023 Housing Stability Vital Sign Answer Varinder e Recorded In the last 12 months, was t here a time when you were not able to pay the mortgage or rent on time? No 11/30/2024 In the past 12 months, how m any times have you moved where you were living? 1 11/30/2024 At any time in the past 12 m [facility], were you homeless or living in a detention (including now)? Patient unable to answer 11/30/2024 Sex and Gender Information Value Date Recorded Sex Assigned at Male 12/04/2024 9:12 AM BRONC BUSTER Legal Sex Male 5:48 PM BRONC BUSTER Gender Identity Not on file Sexual Orientation Not on file Last Filed Vital Signs Vital Sign Reading Time Taken Comments Blood Pressure 119/71 12/18/2024 8:01 AM BRONC BUSTER Pulse 82 12/18/2024 8:01 AM BRONC BUSTER Temperature 36.5 C (97.7 F) 12/18/2024 8:01 AM BRONC BUSTER Respiratory Rate 18 12/18/2024 8:01 AM BRONC BUSTER Oxygen Saturation 99% 12/18/2024 8:01 AM BRONC BUSTER Inhaled Oxygen Concentration - - Weight 64.3 kg (141 lb 12.1 oz) 12/18/2024 3:25 AM BRONC BUSTER Height 177.8 cm (5' 10 ) 12/17/2024 4:26 AM BRONC BUSTER Body Mass Index 20.34 12/17/2024 4:26 AM BRONC BUSTER Plan of Treatment Upcoming Encounters Date Type Department Care Team (Late st Contact Info) Description 05/01/2025 12:30 PM CDT Office Visit [facility] [address] [place] [address] [place] [address] Melany Oseguera PA-C [address] [place] [address] [phone] 05/15/2025 8:30 AM CDT Appointment [address] [place] [address] Viv Seo MD [address] [place] [phone] 05/20/2025 2:45 PM CDT Office Visit [facility] [place] [address] Viv Seo MD [address] [place], [place] [phone] Health Maintenance Due Date Last Done Comments [...] discharge from hospital 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, 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 Procedure Name Priority Date/Time Associated Diagnosis Comments POCT GLUCOSE - HULL DOCKED DEVICE Routine 12/18/2024 12:02 PM BRONC BUSTER USV VAST TEAM MIDLINE INSERT >5YR STAT 12/18/2024 11:15 AM BRONC BUSTER BASIC METABOLIC PANEL STAT 12/18/2024 9:13 AM BRONC BUSTER POCT GLUCOSE - HULL DOCKED DEVICE Routine 12/18/2024 5:42 AM BRONC BUSTER POCT GLUCOSE - HULL DOCKED DEVICE Routine 12/18/2024 12:00 AM BRONC BUSTER POCT GLUCOSE - HULL DOCKED DEVICE Routine 12/17/2024 5:26 PM BRONC BUSTER POCT GLUCOSE - HULL DOCKED DEVICE Routine 12/17/2024 12:[address] GD ASPIR+BX BONE MARROW Today 12/17/2024 9:07 AM BRONC BUSTER FLOW CYTOMETRY Routine 12/17/2024 9:00 AM BRONC BUSTER PROTHROMBIN TIME, VENOUS STAT 12/17/2024 8:00 AM BRONC BUSTER CBC W/DIFF AUTOMATED Routine 12/17/2024 3:45 AM BRONC BUSTER BASIC METABOLIC PANEL Routine 12/17/2024 3:45 AM BRONC BUSTER PATHOLOGY Routine 12/17/2024 12:00 AM BRONC BUSTER POCT GLUCOSE - HULL DOCKED DEVICE Routine 12/16/2024 4:38 PM BRONC BUSTER POCT GLUCOSE - HULL DOCKED DEVICE Routine 12/16/2024 11:51 AM BRONC BUSTER POCT GLUCOSE - HULL DOCKED DEVICE Routine 12/16/2024 5:11 AM BRONC BUSTER POCT GLUCOSE - HULL DOCKED DEVICE Routine 12/15/2024 8:11 PM BRONC BUSTER ECG 12-LEAD Routine 12/15/2024 6:38 PM BRONC BUSTER POCT GLUCOSE - HULL DOCKED DEVICE Routine 12/15/2024 4:00 PM BRONC BUSTER POCT GLUCOSE - HULL DOCKED DEVICE Routine 12/15/2024 11:28 AM BRONC BUSTER POCT GLUCOSE - HULL DOCKED DEVICE Routine 12/15/2024 5:12 AM BRONC BUSTER CBC, AUTO, NO DIFF Routine 12/15/2024 3: 14 AM BRONC BUSTER BASIC METABOLIC PANEL Routine 12/15/2024 3:14 AM BRONC BUSTER POCT GLUCOSE - HULL DOCKED DEVICE Routine 12/15/2024 12:28 AM BRONC BUSTER POCT GLUCOSE - HULL DOCKED DEVICE Routine 12/14/2024 7:57 PM BRONC BUSTER POCT GLUCOSE - HULL DOCKED DEVICE Routine 12/14/2024 5:42 PM BRONC BUSTER POCT GLUCOSE - HULL DOCKED DEVICE Routine 12/14/2024 1:28 PM BRONC BUSTER POCT GLUCOSE - HULL DOCKED DEVICE Routine 12/14/2024 6:26 AM BRONC BUSTER POCT GLUCOSE - HULL DOCKED DEVICE Routine 12/13/2024 10:49 PM BRONC BUSTER POCT GLUCOSE - HULL DOCKED DEVICE Routine 12/13/2024 9:20 PM BRONC BUSTER POCT GLUCOSE - HULL DOCKED DEVICE Routine 12/13/2024 6:12 PM BRONC BUSTER POCT GLUCOSE - HULL DOCKED DEVICE Routine 12/13/2024 11:57 AM BRONC BUSTER IMMUNOFIXATION, URINE 24 HR Routine 12/13/2024 11:30 AM BRONC BUSTER PROTEIN ELECTROPHORESIS URINE 24 HR Routine 12/13/2024 11:30 AM BRONC BUSTER PROTEIN TOTAL URINE 24 HR Nurse Collected Priority 12/13/2024 11:30 AM BRONC BUSTER Anemia, unspecified type POCT GLUCOSE - HULL DOCKED DEVICE Routine 12/13/2024 6:29 AM BRONC BUSTER CBC, AUTO, NO DIFF Routine 12/13/2024 2: 20 AM BRONC BUSTER BASIC METABOLIC PANEL Routine 12/13/2024 2:20 AM BRONC BUSTER POCT GLUCOSE - HULL DOCKED DEVICE Routine 12/12/2024 7:51 PM BRONC BUSTER POCT GLUCOSE - HULL DOCKED DEVICE Routine 12/12/2024 4:56 PM BRONC BUSTER XR CHEST PORTABLE Today 12/12/2024 12:15 PM BRONC BUSTER URIC ACID BLOOD Routine 12/12/2024 11:42 AM BRONC BUSTER Anemia, unspecified type LDH, LACTATE DEHYDROGENASE Routine 12/12/2024 11:42 AM BRONC BUSTER Anemia, unspecified type BETA 2 MICROGLOBULIN, SERUM (QST) Routine 12/12/2024 11:42 AM BRONC BUSTER Anemia, unspecified type POCT GLUCOSE - HULL DOCKED DEVICE Routine 12/12/2024 11:05 AM BRONC BUSTER POCT GLUCOSE - HULL DOCKED DEVICE Routine 12/12/2024 6:15 AM BRONC BUSTER CBC W/DIFF AUTOMATED Routine 12/12/2024 2:57 AM BRONC BUSTER BLOOD SMEAR INTERPRETATION BY Routine 12/12/2024 2:57 AM BRONC BUSTER Anemia, unspecified type CBC, AUTO, NO DIFF Routine 12/12/2024 2: 57 AM BRONC BUSTER BASIC METABOLIC PANEL Routine 12/12/2024 2:57 AM BRONC BUSTER CK (CPK) Routine 12/12/2024 2:57 AM BRONC BUSTER PATHOLOGY Routine 12/12/2024 12:00 AM BRONC BUSTER POCT GLUCOSE - HULL DOCKED DEVICE Routine 12/11/2024 8:40 PM BRONC BUSTER POCT GLUCOSE - HULL DOCKED DEVICE Routine 12/11/2024 12:36 PM BRONC BUSTER XR BONE SURVEY COMPLETE Today 12/11/2024 12:12 PM BRONC BUSTER IMMUNOFIXATION Routine 12/11/2024 8:44 AM BRONC BUSTER KAPPA LAMBDA FREE RATIO (QST) Routine 12/11/2024 8:44 AM BRONC BUSTER PROTEIN, ELECTROPHORESIS Routine 12/11/2024 8:44 AM BRONC BUSTER POCT GLUCOSE - HULL DOCKED DEVICE Routine 12/11/2024 5:36 AM BRONC BUSTER POCT GLUCOSE - HULL DOCKED DEVICE Routine 12/11/2024 12:31 AM BRONC BUSTER POCT GLUCOSE - HULL DOCKED DEVICE Routine 12/10/2024 11:38 PM BRONC BUSTER POCT GLUCOSE - HULL DOCKED DEVICE Routine 12/10/2024 8:10 PM BRONC BUSTER POCT GLUCOSE - HULL DOCKED DEVICE Routine 12/10/2024 7:31 PM BRONC BUSTER POCT GLUCOSE - HULL DOCKED DEVICE Routine 12/10/2024 5:29 PM BRONC BUSTER VANCOMYCIN TIMED 12/10/2024 10:03 AM BRONC BUSTER BASIC METABOLIC PANEL Routine 12/10/2024 7:04 AM BRONC BUSTER CBC W/DIFF AUTOMATED Routine 12/10/2024 7:[address] HIP RT WO CON Today 12/09/2024 12:15 PM BRONC BUSTER CBC W/DIFF AUTOMATED Routine 12/09/2024 3:26 AM BRONC BUSTER BASIC METABOLIC PANEL Routine 12/09/2024 3:26 AM BRONC BUSTER BASIC METABOLIC PANEL TIMED 12/07/2024 7:42 PM BRONC BUSTER VANCOMYCIN TIMED 12/07/2024 7:42 PM BRONC BUSTER BLOOD GAS, ARTERIAL LAB Routine 12/07/2024 6:21 AM BRONC BUSTER PRO-BRAIN NATRIURETIC PEPTIDE Routine 12/07/2024 6:21 AM BRONC BUSTER XR CHEST PORTABLE STAT 12/07/2024 5:2 4 AM BRONC BUSTER BASIC METABOLIC PANEL Routine 12/07/2024 1:53 AM BRONC BUSTER CBC W/DIFF AUTOMATED Routine 12/07/2024 1:53 AM BRONC BUSTER USE ECHOCARDIOGRAM W CON Today 12/06/2024 11:32 AM BRONC BUSTER CBC W/DIFF AUTOMATED STAT 12/06/2024 3:21 AM BRONC BUSTER COMPREHENSIVE METABOLIC PANEL Routine 12/06/2024 1:39 AM BRONC BUSTER LIPID PANEL Routine 12/27/2023 7:08 AM BRONC BUSTER from Last 3 Months or Most Recently Relevant to Health Maintenance Results * (ABNORMAL) POCT glucose (12/18/2024 12:02 PM BRONC BUSTER) Only the most recent of34 resultswithin the time period is included. GLUCOSE POC 143(H) 70 - 109 12/18/2024 12:[address] [facility] 12/18/2024 12:0 2 PM BRONC BUSTER Donn Hoffman MD POCT ORDERABLES - DEVICE Final R esult [facility] [address] [place] [address], [place] [phone] [id number] * USV VAST TEAM MIDLINE INSERT >5YR (12/18/2024 11:15 AM BRONC BUSTER) Anatomical Region Laterality Modality NA Vascular Ultraso und 12/18/2024 10:4 9 AM BRONC BUSTER Narrative 12/18/2024 10:49 AM BRONC BUSTER This report does not contain a radiologist's interpretation. Please review associated procedure and/or operative report. Procedure Note , Generic Conversion, MD - 12/18/2024 This report does not contain a radiologist's interpretation. Please review associated procedure and/or operative report. Donn Hoffman MD [facility] Final Result * (ABNORMAL) BASIC METABOLIC PANEL (12/18/2024 9:13 AM BRONC BUSTER) Only the most recent of9 resultswithin the time period is included. SODIUM S/P/B 135(L) 136 - 145 MMOL/L 12/18/2024 9:45 AM [facility] POTASSIUM S/P/B 4.5 3.5 - 5.1 MMOL/L 12/18/2024 9:45 AM BRONC BUSTER [facility] CHLORIDE S/P/B 106 97 - 115 MMOL/L 12/18/2024 9:45 AM [facility] CO2 26.0 21.0 - 32.0 MMOL/L 12/18/2024 9:45 AM [facility] GLUCOSE 124(H) 74 - 106 MG/DL 12/18/2024 9:45 AM [facility] BUN 28(H) 7 - 18 MG/DL 12/18/2024 9:45 AM BRONC BUSTER [facility] CREATININE S/P/B 1.33(H) 0.70 - 1.30 MG/DL 12/18/2024 9:45 AM [facility] CALCIUM S/P/B 8.9 8.5 - 10.1 MG/DL 12/18/2024 9:45 AM BRONC BUSTER [facility] ANION GAP 3.0 2.0 - 10.0 MMOL/L 12/18/2024 9:45 AM [facility] OSMOLALITY (CALC) 287 MOSM/KG 025 9:45 AM [facility] Comment:REFERENCE RANGE NOT ESTABLISHED GFR ESTIMATE 58(L) >90 ML/MIN/1. 73 M2 12/18/2024 9:45 AM [facility] GFR NOTES GFR REFERENCE S: 12/18/2024 9:45 AM [facility] Comment: THE ESTIMATED GFR IS CALCULATED [...] FAILURE: <15 ml/min/1.73 m2 12/18/2024 9:13 AM BRONC BUSTER us Donn Hoffman MD LABORATORY Final Result [facility] [address] [place] [address], [id number] * CT GD ASPIR+BX BONE MARROW (12/17/2024 9:07 AM BRONC BUSTER) Anatomical Region Laterality Modality Bone Computed Tomogra phy 12/18/2024 8:50 AM BRONC BUSTER Impressions 12/18/2024 10:53 AM BRONC BUSTER IMPRESSION: CT-guided percutaneous bone marrow biopsy, as described. The attending radiologist, Dr. Glasgow, was in the department for all critical portions of the procedure, has reviewed the images, and agrees with the content of this report. Dictated By: VEL Dove on 12/18/2024 8:50 AM Ordered By: DIONICIO BAKER Interpreted By: VEL Dove, 12/18/2024 8:50 AM Narrative 12/18/2024 10:53 AM BRONC BUSTER [address] [address] PROCEDURE: CT-GUIDED BONE MARROW ASPIRATION AND BIOPSY DATE OF PROCEDURE: 12/17/2024 8:27 AM INDICATION: Anemia. Concern for myeloma. Primary provider: Jacob Campos PA-C Supervising provider: Reyes Glasgow M.D. Conscious sedation: Administered and monitored by a qualified interventional radiology nurse under supervision of the interventional physician engineering inspection assistant. There was continuous monitoring of vital signs including pulse oximetry, end-tidal CO2, and EKG. Total intraservice or awyd-zh-dnnb sedation time: 4 minutes. TECHNIQUE AND FINDINGS: Informed written consent was obtained. The patient was then brought to the CT scanner suite, placed in the prone position, and [place] protocol was observed to verify correct patient, [...] The needle was then connected to an Pumodo motorized device to penetrate the cortex. At [...] Procedure Note Reyes Glasgow MD - 12/18/[address] [address] PROCEDURE: CT-GUIDED BONE MARROW ASPIRATION AND BIOPSY DATE OF PROCEDURE: 12/17/2024 8:27 AM INDICATION: Anemia. Concern for myeloma. Primary provider: Jacob Campos PA-C Supervising provider: Reyes Glasgow M.D. Conscious sedation: Administered and monitored by a qualifiedinterventional radiology nurse under supervision of the interventionalphysician engineering inspection assistant. There was continuous monitoring of vital signsincluding pulse oximetry, end-tidal CO2, and EKG. Total intraservice lflchk-gc-uden sedation time: 4 minutes. TECHNIQUE AND FINDINGS: Informed written consent was obtained. The patient was then brought to theCT scanner suite, placed in the prone position, and [place] protocol wasobserved to verify correct patient, site, [...] Result * Flow Cytometry (12/17/2024 9:00 AM BRONC BUSTER) FLOW CYTOMETRY RESULTS [facility] Department of Laboratory Medicine [address] [place] [phone] , extension [phone] Pathology Report Flow Cytometry Report Name: TERRI DEVRIES Specimen #: [id number] Age: 6 1955 (Age: 69) Location: [facility] Sex: M Procedure Date: 12/17/2024 Hospital #: [id number] Date Received: 12/17/2024 Date Reported: 12/23/2024 Provider: [...] concurrently. Result: Tested: CD45, CD19, CD20, Surface Cheney, Surface Lambda, CD5, CD10, CD38, CD34, CD14, [...] interpretation, and sign out were performed at [facility], [address] [place] [address]. Electronically Signed Out RUBEN RIVRES MD This test was developed and its performance characteristics determined by [facility]. It has not been cleared or approved by the U.S. Food and Drug Administration. However, the use of Analyte Specific Reagents does not require FDA approval. [facility] 12/17/2024 9:00 AM BRONC BUSTER 12/17/2024 9:15 AM BRONC BUSTER Comment:Bone marrow aspirati on (See report [id number]) Dionicio Baker MD PATHOLOGY/CYTOLOGY ORDERABLES Fi nal Result [facility] [address] [place] [address], [id number] * (ABNORMAL) PROTIME/INR, VENOUS (12/17/2024 8:00 AM BRONC BUSTER) PROTIME 13.8(H) 9.4 - 12.5 SEC 12/17/2024 8:29 AM BRONC BUSTER [facility] INR 1.2(H) 0.8 - 1.1 12/17/2024 8:29 AM [facility] 12/17/2024 8:00 AM BRONC BUSTER us Reyes Glasgow MD LABORATORY Final Resu lt [facility] [address] [place] [address], [id number] * (ABNORMAL) CBC W/DIFF AUTOMATED (12/17/2024 3:45 AM BRONC BUSTER) Only the most recent of6 resultswithin the time period is included. WBC 4.81 4.00 - 10.80 x10'3/uL 12/17/2024 4:27 AM [facility] RBC 3.07(L) 4.50 - 6.10 x10'6/uL 12/17/2024 4:27 AM [facility] HGB 9.8(L) 12.0 - 16.0 G/DL 12/17/2024 4:27 AM [facility] HCT 30.4(L) 37.0 - 52.0 % 12/17/2024 4:27 AM [facility] MCV 99.0 78.0 - 100.0 FL 12/17/2024 4:27 AM [facility] MCH 31.9(H) 27.0 - 31.0 PG 12/17/2024 4:27 AM [facility] MCHC 32.2(L) 33.0 - 36.0 G/DL 12/17/2024 4:27 AM [facility] RDW 13.6 11.5 - 14.5 % 12/17/2024 4:27 AM [facility] PLT 207 150 - 350 x10'3/uL 12/17/2024 4:27 AM [facility] MPV 11.3(H) 7.4 - 10.4 FL 12/17/2024 4:27 AM [facility] DIFFERENTIAL TYPE AUTOMATED DIFFERENTIAL 12/17/2024 4:27 AM [facility] SEG NEUTROPHILS 60.5 % 4:27 AM [facility] LYMPHOCYTES 22.5 % 12/17/2024 4:27 AM [facility] MONOCYTES 12.9 % 12/17/2024 4:27 AM [facility] EOSINOPHILS 3.3 % 12/17/2024 4:27 AM [facility] BASOPHILS 0.4 % 12/17/2024 4:27 AM [facility] IMMATURE GRANS % 0.4 % 12/17/19 4:27 AM [facility] ABS. NEUTROPHILS 2.91 1.60 - 8.30 x10'3/uL 12/17/2024 4:27 AM [facility] ABS. LYMPHOCYTES 1.08 0.80 - 4.70 x10'3/uL 12/17/2024 4:27 AM [facility] ABS. MONOCYTES 0.62 0.00 - 1.50 x10'3/uL 12/17/2024 4:27 AM [facility] ABS. EOSINOPHILS 0.16 0.00 - 0.40 x10'3/uL 12/17/2024 4:27 AM [facility] ABS. BASOPHILS 0.02 0.00 - 0.20 x10'3/uL 12/17/2024 4:27 AM [facility] ABS. IMMATURE GRANULOCYTES 0.02 0.00 - 0.03 x10'3/uL 12/17/2024 4:27 AM [facility] ABS. NUCLEATED RBC'S 0.00 0.00 - 0.01 x10'3/uL 12/17/2024 4:27 AM [facility] NRBC % 0.0 % 12/17/2024 4:27 AM BRONC BUSTER [facility] 12/17/2024 3:45 AM BRONC BUSTER Donn Hoffman MD LABORATORY Final Result [facility] [address] [place] [address], [id number] * Pathology (12/17/2024 12:00 AM BRONC BUSTER) Only the most recent of2 resultswithin the time period is included. PATHOLOGY [facility] Department of Laboratory Medicine [address] [place] [phone] , extension [phone] Pathology Report Bone Marrow Report Name: TERRI DEVRIES Specimen #: [id number] Age: 6 1955 (Age: 69) Location: [facility] Sex: M Procedure Date: 12/17/2024 Hospital #: [id number] Date Received: 12/17/2024 Date Reported: 12/23/2024 Provider: [...] cell, or blast population (see separate report [id number]). In summary, there is no diagnostic evidence [...] interpretation, and sign out were performed at [facility], [address] [place] [address]. All immunohistochemical and histochemical tests were developed by and performed at [facility], [address] [place] [address]. All tests reported here have not been [...] cell, or blast population (see separate report [id number]). Cytogenetics/FISH: Not performed. 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 : 1955 Requested By: DONN HOFFMAN Order Number: [id number] Reading MD: Viv Seo Measurements Intervals [place] Rate: 101 P: MT: 0 QRS: -55 QRSD: 105 T: 131 QT: 374 QTc: 486 Interpretive Statements ATRIAL FIBRILLATION WITH RAPID VENTRICULAR RESPONSE LEFT ANTERIOR FASCICULAR BLOCK [QRS AXIS <= -45, QR IN I, RS IN II] PROBABLE SEPTAL MYOCARDIAL INFARCTION , PROBABLY OLD [35 ms Q WAVE IN V1/V2] C BUSTER Procedure Note Viv Seo MD - 12/15/2024 [address] [place] [address] Test Date: 2024-12-15 Pat Name: TERRI DEVRIES Department: 1 Room: 816AA Gender: Male Harness Fitter: : 1955 Requested By: DONN HOFFMAN Order Number: [id number] Reading MD: Viv Seo Measurements Intervals [place] Rate: 101 P: MT: 0 QRS: -55 QRSD: 105 T: 131 QT: 374 QTc: 486 Interpretive Statements ATRIAL FIBRILLATION WITH RAPID VENTRICULAR RESPONSE LEFT ANTERIOR FASCICULAR BLOCK [QRS AXIS <= -45, QR IN I, RS IN II] PROBABLE SEPTAL MYOCARDIAL INFARCTION , PROBABLY OLD [35 ms Q WAVE INV1/V2] C BUSTER us Donn Hoffman MD ECG ORDERABLES Final Result [facility] * (ABNORMAL) CBC, AUTO, NO DIFF (12/15/2024 3:14 AM BRONC BUSTER) Only the most recent of3 resultswithin the time period is included. WBC 6.63 4.00 - 10.80 x10'3/uL 12/15/2024 3:56 AM BRONC BUSTER [facility] RBC 3.27(L) 4.50 - 6.10 x10'6/uL 12/15/2024 3:56 AM BRONC BUSTER [facility] HGB 10.7(L) 12.0 - 16.0 G/DL 12/15/2024 3:56 AM BRONC BUSTER [facility] HCT 32.4(L) 37.0 - 52.0 % 12/15/2024 3:56 AM BRONC BUSTER [facility] MCV 99.1 78.0 - 100.0 FL 12/15/2024 3:56 AM BRONC BUSTER [facility] MCH 32.7(H) 27.0 - 31.0 PG 12/15/2024 3:56 AM BRONC BUSTER [facility] MCHC 33.0 33.0 - 36.0 G/DL 12/15/2024 3:56 AM [facility] RDW 13.6 11.5 - 14.5 % 12/15/2024 3:56 AM [facility] PLT 184 150 - 350 x10'3/uL 12/15/2024 3:56 AM [facility] MPV 11.4(H) 7.4 - 10.4 FL 12/15/2024 3:56 AM [facility] 12/15/2024 3:14 AM BRONC BUSTER us Donn Hoffman MD LABORATORY Final Result Performing Organization Address [facility] de Phone Number [facility] [address] [place] [address], [place] [phone] * IMMUNOFIXATION, URINE 24 HR (12/13/2024 11:30 AM [facility]) IMMUNOFIXATION 24HR (U) SEE PATHOLOGIST'S INTERPRETATION 12/17/2024 1:01 PM [facility] IMMUNOFIXATION INTERPRETATION 24HR THIS URINE IMMUNOTYPING WAS INTERPRETED BY 12/18/2024 12:30 PM [facility] Comment: DR MELO MONTOYA MONOCLONAL PROTEIN NOT IDENTIFIED BENCE PINA PROTEIN NOT DETECTED. 12/13/2024 11:3 0 AM [facility] us Donn Hoffman MD URINE ORDERABLES Final Result Performing Organization Address [facility] de Phone Number [facility] [address] [place] [address], [place] [phone] * (ABNORMAL) PROTEIN TOTAL URINE 24 HR (12/13/2024 11:30 AM [facility]) PROTEIN URINE TOTAL RANDOM 79.1(H) <12.0 MG/DL 12/13/2024 12:41 PM [facility] TOTAL PROTEIN 24HR (U) 1,146.95(H ) 0 - 149 MG/24HR 12/13/2024 12:41 PM [facility] VOLUME (U) 1,450 ML 12/13/2024 12:16 PM [facility] URINE SPECIMEN / Unknown 12/13/2024 11:30 AM [facility] Nhung Seo MD URINE ORDERABLES Final Result Performing Organization Address [facility] de Phone Number [facility] [address] [place] [address], [phone] * (ABNORMAL) PROTEIN ELECTROPHORESIS URINE 24 HR (12/13/2024 11:30 AM [facility]) TOTAL PROTEIN 24HR (U) 1,147.0(H) <100 MG/24HRS 12/17/2024 12:59 PM [facility] INTERPRETATION THIS URINE PEP WAS INTERPRETED BY 12/18/2024 12:30 PM [facility] Comment: DR MELO MONTOYA THERE IS MODERATE 24 HOUR PROTEINURIA COMPOSED OF LOWER MOLECULAR WEIGHT PROTEINS (SELECTIVE PROTEINURIA). BENCE PINA PROTEIN IS NOT DETECTED. 12/13/2024 11:3 0 AM [facility] Donn Hoffman MD URINE ORDERABLES Final Result Performing Organization Address [facility] [facility] de Phone Number [facility] [address] [place] [address], [place] [phone] * XR CHEST PORTABLE (12/12/2024 12:15 PM BRONC BUSTER) Only the most recent of2 resultswithin the time period is included. Anatomical Region Laterality Modality Chest Radiographic Modesta ging 12/12/2024 3:21 PM BRONC BUSTER Impressions 12/12/2024 3:22 PM BRONC BUSTER IMPRESSION: 1. NO SIGNIFICANT INTERVAL CHANGE. Signed: Diogenes Arriaga MD Referred By: MINA YOU Interpreted By: Diogenes Arriaga MD, 12/12/2024 3:21 PM Narrative 12/12/2024 3:22 PM BRONC BUSTER [address] [address] PATIENT NAME: TERRI DEVRIES EXAM: Chest one view DATE OF EXAM: 12/12/2024 COMPARISON EXAM: 12/07/2024 INDICATION: CHF TECHNIQUE: AP chest FINDINGS: Shallow inspiration. Mild cardiomegaly similar to previous study. Thoracic aorta remains mildly ectatic and tortuous. Mild pulmonary vascular congestion and edema similar to previous study. No new airspace consolidation. No gross pleural effusion. Procedure Note Diogenes Arriaga MD - 12/12/[address] [address] PATIENT NAME: TERRI DEVRIES EXAM: Chest one [...] (ABNORMAL) LDH, LACTATE DEHYDROGENASE (12/12/2024 11:42 AM BRONC BUSTER) LDH 280(H) 87 - 241 UNITS/L 12/12/2024 12:[address] [facility] 12/12/2024 11:4 2 AM BRONC BUSTER Nhung Seo MD LABORATORY Final Result [facility] [address] [place] [address], [place] [phone] * (ABNORMAL) BETA 2 MICROGLOBULIN, SERUM (QST) (12/12/2024 11:42 AM BRONC BUSTER) BETA-2 MICROGLOBULIN 4.88(H) <=2.51 mg/L 12/17/2024 7:41 AM BRONC BUSTER [facility] FU-FLEX TAPIA Comment: Test Performed by Tam Hurtado, [employer] [facility], [address] [place] [address] Melo Huertas M.D., Ph.D., Director of Laboratories , [place] [id number] 12/12/2024 11:4 2 AM BRONC BUSTER Nhung Seo MD LABORATORY Final Result Performing Organization Address City/[facility]/ZIP Co de Phone Number Causes [address] , [place] [phone] * URIC ACID BLOOD (12/12/2024 11:42 AM BRONC BUSTER) URIC ACID 5.7 3.5 - 7.2 MG/DL 12/12/2024 12:26 PM BRONC BUSTER [facility] 12/12/2024 11:4 2 AM BRONC BUSTER us Nhung Seo MD LABORATORY Final Result [facility] [address] [place] [address], [place] [phone] * BLOOD SMEAR INTERPRETATION BY (12/12/2024 2:57 AM BRONC BUSTER) CBC PATHOLOGIST COMMENT SENT TO PATHOLOGIST FOR REVIEW 12/12/2024 11:17 AM BRONC BUSTER [facility] 12/12/2024 2:57 AM BRONC BUSTER Nhung Seo MD LABORATORY Final Result Performing Organization Address [facility] Co de Phone Number [facility] [address] [place] [address], [phone] * CK (CPK) - Weekly starting tomorrow (12/12/2024 2:57 AM BRONC BUSTER) CPK 54 39 - 308 U/L 12/12/2024 3:35 AM BRONC BUSTER [facility] 12/12/2024 2:57 AM BRONC BUSTER Tawana Barker NP LABORATORY Final Result Performing Organization Address [facility] de Phone Number [facility] [address] [place] [address], [place] [phone] * XR BONE SURVEY COMPLETE (12/11/2024 12:12 PM BRONC BUSTER) Anatomical Region Laterality Modality Bone Radiographic Modesta ging 12/11/2024 10:2 4 PM BRONC BUSTER Impressions 12/11/2024 10:37 PM BRONC BUSTER IMPRESSION: 1. Scattered lucencies seen in the [...] 12/11/2024 10:24 PM Narrative 12/11/2024 10:37 PM BRONC BUSTER [address] [address] Examination: XR BONE SURVEY COMPLETE Exam time: [...] Procedure Note Zeke Calzada, DO - 12/11/[address] [address] Examination: XR BONE SURVEY COMPLETE Exam time: [...] LAMBDA FREE RATIO (QST) (12/11/2024 8:44 AM BRONC BUSTER) Pathologist [facility] KAPPA FREE LIGHT CHAIN 83.0(H) 3.3 - 19.4 mg/L 12/13/2024 11:02 AM BRONC BUSTER [facility] LLY LAMBDA FREE LIGHT CHAIN 47.9(H) 5.7 - 26.3 mg/L 12/13/2024 11:02 AM BRONC BUSTER [facility] LLY KAPPA/LAMBDA FREE 1.73(H) 0.26 - 1.65 12/13/2024 11:02 AM BRONC BUSTER [facility] Comment: Free kappa/lambda ratio in serum [...] therapy of these disorders. Test Performed by [employer], [employer] [facility], [address] [place] [address] Melo Huertas M.D., Ph.D., Director of Laboratories , [facility] [id number] 12/11/2024 8:44 AM BRONC BUSTER Donn Hoffman MD LABORATORY Final Result [facility] [address], * IMMUNOFIXATION (12/11/2024 8:44 AM BRONC BUSTER) Pathologist [facility] IMMUNOFIXATION SERUM SEE PATHOLOGIST'S INTERPRETATION 12/12/2024 11:59 AM BRONC BUSTER [facility] IMMUNOFIX (SERUM) INTERPRETATION THIS SERUM IMMUNOTYPING WAS INTERPRETED BY 12/13/2024 9:32 AM BRONC BUSTER [facility] Comment: DR GABI PINA MD MONOCLONAL PROTEIN NOT IDENTIFIED 12/11/2024 8:44 AM BRONC BUSTER Donn Hoffman MD LABORATORY Final Result Performing Organization Address City/[facility] Co de Phone Number [facility] [address] [place] [address], [phone] * (ABNORMAL) PROTEIN, ELECTROPHORESIS (12/11/2024 8:44 AM BRONC BUSTER) TOTAL PROTEIN (ELECTROPHORESIS SERUM) 6.5 6.0 - 8.3 G/DL 12/12/2024 11:58 AM BRONC BUSTER [facility] ALBUMIN ELECTROPHORESIS S/P/B 3.0(L) 3.4 - 4.9 G/DL 12/12/2024 11:57 AM BRONC BUSTER [facility] [id number] S/P/B 0.3 0.2 - 0.4 G/DL 12/12/2024 11:57 AM BRONC BUSTER [facility] [id number] S/P/B 0.9 0.4 - 1.0 G/DL 12/12/2024 11:57 AM BRONC BUSTER [facility] BETA GLOBULIN S/P/B 1.1 0.5 - 1.2 G/DL 12/12/2024 11:57 AM BRONC BUSTER [facility] GAMMA GLOBULIN S/P/B 1.2 0.6 - 1.6 G/DL 12/12/2024 11:57 AM BRONC BUSTER [facility] ELECTROPHORESIS INTERPRETATION THIS SERUM PEP WAS INTERPRETED BY 12/13/2024 9:32 AM BRONC BUSTER [facility] Comment: DR GABI PINA MD THE TOTAL SERUM PROTEIN IS NORMAL. ELECTROPHORESIS IDENTIFIES DECREASED ALBUMIN WITH NO ADDITIONAL QUANTITATIVE ABNORMALITIES. MONOCLONAL PROTEINS ARE NOT DETECTED. 12/11/2024 8:44 AM BRONC BUSTER us Donn Hoffman MD LABORATORY Final Result Performing Organization Address City/[facility] de Phone Number [facility] [address] [place] [address], [phone] * Vancomycin Random Level (12/10/2024 10:03 AM BRONC BUSTER) Only the most recent of2 resultswithin the time period is included. VANCOMYCIN RANDOM 17.3 MCG/ML 12/10/2024 10:47 AM BRONC BUSTER [facility] Comment:REFERENCE RANGE NOT ESTABLISHED 12/10/2024 10:0 3 AM BRONC BUSTER Jesu Duval MD LABORATORY Final Result Performing Organization Address [facility] Co de Phone Number [facility] [address] [place] [address], [phone] * CT HIP RT WO CON (12/09/2024 12:15 PM BRONC BUSTER) Anatomical Region Laterality Modality Hip Computed Tomogra phy 12/09/2024 2:13 PM BRONC BUSTER Impressions 12/09/2024 2:20 PM BRONC BUSTER IMPRESSION: 1. No CT evidence of a right hip joint effusion. 2. Bone scan follow-up recommended for subtle, multifocal bone lucencies. Referred By: MINA YOU Interpreted By: Bryan Vences MD, 12/09/2024 2:13 PM Narrative 12/09/2024 2:[address] [facility] [address] [place], [place] [address] EXAM: CT HIP RT WO CON DATE: [...] Procedure Note Bryan Vences MD - 12/09/2024 [facility] [address] [place], [place] [address] EXAM: CT HIP RT WO CON DATE: [...] (ABNORMAL) PRO-BRAIN NATRIURETIC PEPTIDE (12/07/2024 6:21 AM BRONC BUSTER) PRO-B TYPE NATRIURETIC PEPTIDE 16,835(H) <125 PG/ML 12/07/2024 7:[address] [facility] Comment: AGE INDEPENDENT: <300 PG/ML HAS [...] 72% FOR ACUTE CHF. 12/07/2024 6:21 AM BRONC BUSTER Jesu Duval MD LABORATORY Final Result [facility] [address] [place] [address], [phone] * ARTERIAL BLOOD GAS (12/07/2024 6:21 AM BRONC BUSTER) PH ARTERIAL 7.44 7.35 - 7.45 12/07/2024 6:32 AM [facility] PCO2 36.5 35.0 - 45.0 MMHG 12/07/2024 6:32 AM [facility] PO2 84.4 83.0 - 108.0 MMHG 12/07/2024 6:32 AM [facility] BICARB ARTERIAL 24.1 22 - 26 MMOL/L 12/07/2024 6:32 AM [facility] TOTAL CO2 CAPILLARY 25.3 23 - 27 MMOL/L 12/07/2024 6:32 AM [facility] BE/BASE EXCESS 0.7 0 - 2 MMOL/L 12/07/2024 6:32 AM [facility] O2 Saturation 96 95 - 98 % 12/07/2024 6:32 AM [facility] SERGO TEST N/A 12/07/2024 6:21 AM [facility] OXYGEN STATUS 2 lt 12/07/2024 6:21 AM [facility] DRAW SITE ARTERIAL LT RADIAL 12/07/2024 6:21 AM [facility] 12/07/2024 6:21 AM BRONC BUSTER Jesu Duval MD LABORATORY Final Result [facility] [address] [place] [address], [phone] * USE ECHOCARDIOGRAM W CON (12/06/2024 11:32 AM BRONC BUSTER) Anatomical Region Laterality Modality NA Echocardiogram 12/06/2024 9:40 AM BRONC BUSTER Narrative 12/06/2024 10:36 PM BRONC BUSTER Echocardiography Report Pat.Name: EDILMASILVANATERRI Pat.ID: [id number] .Date: 12/06/2024 Refer.MD: [id number] KENYATTA ENRIQUEZ EWDPROV EWDPROV Exam Time: 9:40:00 [...] Mass 2D Value 197 g LV Mass [id number] Value 101 g/m2 RA Volume Atrial Flores [...] 12/06/2024 Echocardiography Report Pat.Name: TERRI DEVRIES Pat.ID: [id number] .Date: 12/06/2024 : [id number] YOU NORMANHMAN EWDPROV EWDPROV Exam Time: 9:40:00 [...] Mass 2D Value 197 g LV Mass [id number] Value 101 g/m2 RA Volume Atrial Flores [...] (ABNORMAL) COMPREHENSIVE METABOLIC PANEL (12/06/2024 1:39 AM BRONC BUSTER) SODIUM S/P/B 146(H) 136 - 145 MMOL/L 12/06/2024 2:50 AM [facility] POTASSIUM S/P/B 3.5 3.5 - 5.1 MMOL/L 12/06/2024 2:50 AM [facility] CHLORIDE S/P/B 116(H) 97 - 115 MMOL/L 12/06/2024 2:50 AM [facility] CO2 26.2 21.0 - 32.0 MMOL/L 12/06/2024 2:50 AM [facility] GLUCOSE 90 74 - 106 MG/DL 12/06/2024 2:50 AM [facility] BUN 31(H) 7 - 18 MG/DL 12/06/2024 2:50 AM [facility] CREATININE S/P/B 2.15(H) 0.70 - 1.30 MG/DL 12/06/2024 2:50 AM [facility] CALCIUM S/P/B 8.9 8.5 - 10.1 MG/DL 12/06/2024 2:50 AM [facility] BILIRUBIN TOTAL S/P/B 0.7 0.2 - 1.0 MG/DL 12/06/2024 2:50 AM [facility] ALKALINE PHOSPHATASE S/P/B 45 45 - 115 U/L 12/06/2024 2:50 AM [facility] AST 61(H) 15 - 37 U/L 12/06/2024 2:50 AM [facility] ALT 62(H) 16 - 61 U/L 12/06/2024 2:50 AM [facility] TOTAL PROTEIN S/P/B 6.4 6.4 - 8.2 G/DL 12/06/2024 2:50 AM [facility] ALBUMIN S/P/B 2.3(L) 3.4 - 5.0 G/DL 12/06/2024 2:50 AM [facility] ANION GAP 3.8 2.0 - 10.0 MMOL/L 12/06/2024 2:50 AM [facility] OSMOLALITY (CALC) 308 MOSM/KG 025 2:50 AM [facility] Comment:REFERENCE RANGE NOT ESTABLISHED GFR ESTIMATE 33(L) >90 ML/MIN/1. 73 M2 12/06/2024 2:50 AM [facility] GFR NOTES GFR REFERENCE S: 12/06/2024 2:50 AM [facility] Comment: THE ESTIMATED GFR IS CALCULATED [...] FAILURE: <15 ml/min/1.73 m2 12/06/2024 1:39 AM BRONC BUSTER Jesu Duval MD LABORATORY Final Result [facility] [address] [place] [address], [phone] * LIPID PANEL (12/27/2023 7:08 AM BRONC BUSTER) CHOLESTEROL 131 MG/DL 12/27/2023 8:36 AM BRONC BUSTER [facility] Comment:DESIRABLE: <200 TRIGLYCERIDES 124 MG/DL 12/27/2023 8:36 AM BRONC BUSTER [facility] Comment:<150 NORMAL HDL 54 >39 MG/DL 12/27/2023 8:36 AM [facility] LDL (CALCULATED) 52 MG/DL 12/27/19 8:36 AM [facility] Comment:<100 OPTIMAL VLDL CALCULATION 25 MG/DL 12/27/19 8:36 AM BRONC BUSTER [facility] Comment:REFERENCE RANGE NOT ESTABLISHED CHOL/HDL RATIO 2.4 12/27/2023 8:36 AM [facility] Comment:REFERENCE RANGE NOT ESTABLISHED LDL/HDL 1.0 12/27/2023 8:36 AM [facility] Comment:REFERENCE RANGE NOT ESTABLISHED NON HDL CHOLESTEROL 77 MG/DL 12/27/2023 8:36 AM [facility] Comment:REFERENCE RANGE NOT ESTABLISHED 12/27/2023 7:08 AM BRONC BUSTER Arline Calixto MD LABORATORY Final Res ult 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
--- OUTSIDE RECORDS SUMMARY | 2025-03-06 16:26 | XMS_ITS | Encounter Summary ---
Author Organization [facility] Address [address] [place] [address] Care Team Providers Care Premium Note Interest Calculator Clerk Name Role Phone Emeka Garcia MD Unavailable [phone] Anne Kendrick MD Primary Care Provider [phone] Viv Seo MD Unavailable Kahlil Peres MD Primary Care Provider [phone] Encounter Details Date Type Department Care Team (Late st Contact Info) Description 01/02/2024 Hospital Follow-up Call [facility] [address] [place] [address] Dipika Moseley, RN Social History Tobacco Use Types Packs/Day Years Used Date Smoking Tobacco: Never Smokeless Tobacco: Never Alcohol Use Standard Drinks/Week Comments Yes 0 (1 standard drink = 0.6 oz pur e alcohol) [facility] Utilities Answer Date Recorded In the past 12 months has e [employer], gas, oil, or water [employer] threatened to shut off services in your [...] place to sleep or slept in a alf (including now)? No 12/27/2023 Sex and Gender Information Value Date Recorded Sex Assigned at Male 12/04/2024 9:12 AM HAY FARMER Legal Sex Male 5:48 PM HAY FARMER Gender Identity Not on file Sexual Orientation [...] Description 05/01/2025 12:30 PM CDT Office Visit [facility] [address] [place] [address] Melany Oseguera PA-C [address] [place] [phone] 05/15/2025 8:30 AM CDT Appointment [facility] [address] [place] [address] Viv Seo MD [address] [place] [address] [phone] 05/20/2025 2:45 PM CDT Office Visit [place] [facility] [place] [phone] [place] [address] Viv Seo MD [address] [place] [address] [phone] documented as of this encounter Goals Goal Patient Goal Type Associated Problems Recent Progress Patient-Stated? Author Patient will return to prior living situation and remain independent in ADLs upon discharge from hospital Lifestyle Vicky Moreira RN documented as of this encounter Visit Diagnoses Not on filedocumented in this encounter Care Teams Premium Note Interest Calculator Clerk Relationship Specialty Start Date End Date Anne Kendrick MD [address] [place] [address] [place] [phone] PCP - General FAMILY PRACTICE 10/05/23 11/29/24 Kahlil Peres MD [address] [place] [address] [phone] PCP - General FAMILY PRACTICE 11/30/24 Emeka Garcia MD [address] [place] [phone] Consulting Physician CLINICAL CARDIAC ELECTROPHYSIOLOGY 03/30/23 Viv Seo MD [address] [place] [address] [phone] Consulting Physician CARDIOVASCULAR DISEASE 05/11/24 documented as of this encounter
[2025-03-06] MEDS: ATORVASTATIN 40 MG TABLET 80 MG PO (17:32)
[2025-03-06] MEDS: lisinopriL 10 MG TABLET PO (20:43)
[2025-03-06] MEDS: APIXABAN 2.5 MG TABLET 5 MG BY MOUTH (20:43)
[2025-03-06] MEDS: traZODone HCL 50 MG TABLET PO (21:33)
[2025-03-07] VITALS: BP 145/81; PULSE 102; PULSE 80; PULSE 99; RESP 15; TEMP 36.1; O2SAT 95
[2025-03-07 04:00] VITALS: BP 143/91; PULSE 101; PULSE 102; PULSE 89; RESP 18; TEMP 36.4; O2SAT 96
[2025-03-07 05:27] LABS: Basophils Absolute Auto 0.01 K/mm3 (0.00-0.10); Basophils Percent Auto 0.1 % (0.0-1.0); Eosinophils Absolute Auto 0.01 K/mm3 (0.02-0.50); Eosinophils Percent Auto 0.1 % (1.0-6.0); Hematocrit 31.3 % (37.0-46.0); Immature Granulocyte Absolute 0.07 K/mm3 (0.00-0.00); Immature Granulocyte Percent A 0.8 % (0.0-0.0); Lymphocytes Percent Auto 7.7 % (18.0-42.0); Mean Corpuscular HGB Conc 31.9 g/dL (32-36); Mean Corpuscular Hemoglobin 31.3 pg (27.0-31.0); Mean Corpuscular Volume 98.1 fL (78.0-102.0); Mean Platelet Volume 8.9 fl (8.7-11.0); Monocytes Absolute Auto 0.69 K/mm3 (0.10-0.90); Monocytes Percent Auto 7.6 % (2.0-11.0); Neutrophils Absolute Auto 7.64 K/mm3 (1.70-7.20); Neutrophils Percent Auto 83.7 % (50.0-70.0); Platelet Count Result 165 K/mm3 (150-420); Red Blood Count 3.19 M/mm3 (4.70-6.10); Red Cell Distribution Width 15.5 % (11.6-14.4); White Blood Count 9.1 K/mm3 (4.8-10.8)
[2025-03-07] MEDS: LEVOTHYROXINE SODIUM 112 MCG, LEVOTHYROXINE SODIUM 25 MCG 137 MCG PO (05:29)
[2025-03-07 05:45] LABS: Alanine Aminotransferase 25 U/L (16-63); Albumin Level 3.1 g/dL (3.4-5.0); Alkaline Phosphatase 61 U/L (46-116); Anion Gap 8 mmol/L (4-12); Aspartate Amino Transferase 17 U/L (15-37); Bilirubin,Total 0.6 mg/dL (0.00-1.00); Blood Urea Nitrogen 41 mg/dL (7-18); Calcium 8.6 mg/dL (8.5-10.1); Carbon Dioxide 25 mmol/L (21-32); Chloride 105 mmol/L (98-108); Estimated CRCL calculation 37 ml/min; Estimated Glomerular Filt Rate 38; Glucose 161 mg/dL (70-99); Magnesium 1.8 mg/dL (1.8-2.4); Osmolality Calculated 299 mOsm/kg (285-295); Potassium 4.4 mmol/L (3.5-5.1); Sodium 138 mmol/L (136-145)
[2025-03-07 08:00] VITALS: BP 150/81; PULSE 86; PULSE 91; RESP 20; TEMP 36.3; O2SAT 96
--- NOTE | 2025-03-07 09:10 | PM.DS ---
DS: Admitting Diagnosis Discharge Date 03/07/25 Admitting Diagnosis AFib with RVR CHF exacerbation hyperlipidemia coronary artery disease hypertension hypomagnesemia alcoholism hypothyroidism chronic kidney disease DS: Discharge Diagnosis Discharge Diagnosis (1) Atrial fibrillation with RVR: Code(s): I48.91 - Unspecified atrial fibrillation Status: Acute (2) CHF exacerbation: Code(s): I50.9 - Heart failure, unspecified Status: Acute (3) Hyperlipidemia: Code(s): E78.5 - Hyperlipidemia, unspecified Status: Acute (4) CAD (coronary artery disease): Code(s): I25.10 - Atherosclerotic heart disease of [place] coronary artery without angina pectoris Status: Acute (5) Hypertension: Code(s): I10 - Essential (primary) hypertension Status: Acute (6) Hypomagnesemia: Code(s): E83.42 - Hypomagnesemia Status: Acute (7) Alcoholism: Code(s): F10.20 - Alcohol dependence, uncomplicated Status: Acute (8) Hypothyroidism: Code(s): E03.9 - Hypothyroidism, unspecified Status: Acute (9) CKD (chronic kidney disease): Code(s): N18.9 - Chronic kidney disease, unspecified Status: Inactive DS: Summary Hospital Course Reason for hospitalization: AFib with RVR CHF exacerbation hyperlipidemia coronary artery disease hypertension hypomagnesemia alcoholism hypothyroidism chronic kidney disease Hospital Course: This is a 69-year-old male with a significant past medical history of coronary artery disease, ascending aorta dilatation, ND, hyperlipidemia, hypertension, alcoholism, AFib who presented to the hospital with complaints of shortness of breath. Patient reported that he was having shortness a breath that lasted 2-3 days but now has gotten progressively worse this morning. He came in for further evaluation. Workup in the hospital included a chest x-ray which showed linear atelectasis or scarring in the left lung base otherwise clear lungs. Initial labs showed a normal D-dimer of 0.41, creatinine 2.02, EGFR 33, blood sugar 133, magnesium 1.7, troponin 29.0> 24.3, proBNP 4718, TSH 2.70. UA was obtained which showed trace urine protein otherwise negative. Initial EKG showing AFib with RVR with a rate of 128, QTC 442. He was started on a Cardizem infusion and then was weaned off while in the ED. he was given metoprolol 50 mg and now his rate has been more controlled in the 80s to 90s. patient states that he used an albuterol inhaler which was prescribed for him in the past which likely could be contributing to his AFib with RVR. he denies any recent illness or sick contacts. He also denies any fever, chills, nausea, vomiting, diarrhea, abdominal pain, chest pain, shortness a breath. He states that he stopped drinking alcohol 2 weeks ago and does have a notable tremor in bilateral upper extremities. He was also given a dose of 40 mg IV push Lasix, 2 g of Mag, 125 mg IV push Solu-Medrol, and 500 mL of normal saline while in the ED. patient has been rate controlled 89 to 103 on monitor over the last 24 hours. he had an echocardiogram which revealed normal LV systolic function with an estimated EF of 60-65%, moderate aortic valve sclerosis with mild aortic valve stenosis, aortic root size was dilated moderately to 4.5 cm, severe pulmonary hypertension with estimated pulmonary arterial systolic pressure of 63 mmHg. 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 Now that his vital signs are stable, he has been afebrile, he is currently on room air, he is stable for discharge at this time. He will also need to have a referral to a pediatrician/medical doctor for his chronic kidney disease. final diagnosis: AFib with RVR, CHF exacerbation Status at Discharge Cognitive/behavioral status at discharge: Alert oriented x4 Functional status at discharge: independent ambulation Overall status at discharge: patient is progressing back to baseline Time Spent with Patient Time attestation: Total time spent providing and/or coordinating discharge services: Time spent: Greater than 30 minutes Exam Narrative: General: In no acute distress, well nourished Cardiac: Normal S1 and S2. A fib rate controlled, No murmur, gallops or friction rubs, peripheral pulses intact. Respiratory: Lungs clear to auscultation, no adventitious lung sounds, currently on room air Gastrointestinal: soft, non-distended, non-tender, normoactive bowel sounds. : voiding without difficulty. Neuro: Alert and oriented x4 DS: Data Data Completed and Pending Completed studies during hospitalization: echo chest x-ray Pending studies at discharge: none Labs on day of discharge: Labs from last 24 hours 03/07/25 03/06/25 03/06/25 05:13 12:07 09:23 WBC 9.1 RBC 3.19 L Hgb 10.0 L Hct 31.3 L MCV 98.1 MCH 31.3 H MCHC 31.9 L RDW 15.5 H Plt Count 165 MPV 8.9 Immature Gran % (Auto) 0.8 H Neut % (Auto) 83.7 H Lymph % (Auto) 7.7 L [place] % (Auto) 7.6 Eos % (Auto) 0.1 L Baso % (Auto) 0.1 Lymph # (Auto) 0.70 L [place] # (Auto) 0.69 Eos # (Auto) 0.01 L Baso # (Auto) 0.01 Abs Immat Gran (auto) 0.07 H Absolute Neuts (auto) 7.64 H Absolute Nucleated RBC 0.00 Nucleated RBC % 0.0 Sodium 138 Potassium 4.4 Chloride 105 Carbon Dioxide 25 Anion Gap 8 BUN 41 H Creatinine 1.77 H Estim Creat Clear Calc 37 Estimated GFR 38 L Glucose 161 H Calculated Osmolality 299 H Calcium 8.6 Magnesium 1.8 Total Bilirubin 0.6 AST 17 ALT 25 Alkaline Phosphatase 61 Troponin I 21.9 24.3 Total Protein 7.0 Albumin 3.1 L Methyl Alcohol Level Pending Procedures/Treatments: none Discharge Plan Discharge Attending physician on discharge: Cain Mazariegos Discharging Clinician: Maite Lockett Anticipated Discharge Date/Time: 03/07/25 08:59 Patient Disposition: Home Activity: as tolerated Diet: as tolerated and heart healthy Discharge Instructions: You were found to have severe pulmonary hypertension on your latest echo. Follow up with your Cultural Anthropology Professor in the next 2 weeks. Talk to them about changing your metoprolol to carvedilol considering your pulmonary hypertension. They may want to consider this considering your results. Until then, continue with current regimen. Follow up with your primary care doctor in 1 week. Ask for referral to Software Tools Engineer ( kidney doctor) to follow your kidney function Stop taking albuterol inhaler. Talk with your primary care doctor about pulmonary function testing with a kinesiology professor. Patient Instructions: Antibiotic Form Patient Language: Macedonian Stand Alone Forms: General Discharge Information Follow-up/Referrals: Monserrat Loredo MD [Physician] - 2 weeks (evaluate kidney disease) Mireille,Anne Campos MD [Primary Care Provider] - 1 week Discharge Medications: Continued nifedipine 30 mg tablet extended release 24hr 30 mg PO DAILY atorvastatin 80 mg tablet 80 mg PO QPM torsemide 10 mg tablet 10 mg PO DAILY ezetimibe 10 mg tablet 10 mg PO DAILY duloxetine 30 mg capsule,delayed release(DR/EC) 30 mg PO DAILY fenofibric acid (choline) 45 mg capsule,delayed release(DR/EC) 45 mg PO DAILY Eliquis 5 mg Tablet 5 mg PO BID Patient Comments: pt gets eliquis samples from Dr. Anne Kendrick's office ([phone], ext [phone]). has been taking since 03/2023 per momo trazodone 50 mg Tablet 50 mg PO HS PRN (Reason: Insomnia) Qty: 1 0RF Patient Comments: 1-2 tablets at bedtime as needed. multivitamin with folic acid [Thera] 400 mcg Tablet 1 tablet PO QAM Qty: 1 0RF acetaminophen 325 mg Tablet 650 mg PO Q4H PRN (Reason: Mild Pain (1-3) Or Fever) Qty: 2 0RF levothyroxine 125 mcg tablet 137 mcg PO DAILY@0630 gabapentin 300 mg capsule 300 mg PO DAILY lisinopril 10 mg tablet 10 mg PO BID allopurinol 100 mg tablet 100 mg PO DAILY Patient Comments: 2 tablets per day to equal 200mg metoprolol tartrate 25 mg Tablet 50 mg PO Q12HR Date of admission: 03/06/25 09:24 Primary Care Provider: Mireille,Anne Campos Admitting Provider: Cain Mazariegos Attending physician on admission: Cain Mazariegos Condition: Improved Quality VTE Prophylaxis VTE prophylaxis: pharmacologic ordered Hospitalist MIPS Heart Failure (Exclusion) Patient has history of Heart Transplant or Left Ventricular Assistive Device?: No IF YES, STOP HERE Heart Failure (Qualifier) Patient has current or prior documentation of LVEF less than or equal to 40%, or mod/servere depressed LVSF?: No IF NO, STOP HERE
[2025-03-07] MEDS: EZETIMIBE 10 MG TABLET PO (09:31)
[2025-03-07] MEDS: allopurinoL 100 MG TABLET 200 MG PO (09:31)
[2025-03-07 09:32] VITALS: PULSE 86
[2025-03-07] MEDS: FENOFIBRATE NANOCRYSTALLIZED 145 MG TABLET PO (09:32)
[2025-03-07] MEDS: MULTIVITAMINS THERAPEUTIC TAB (*BKC) 1 TABLET PO (09:32)
[2025-03-07] MEDS: lisinopriL 10 MG TABLET PO (09:32)
[2025-03-07] MEDS: TORSEMIDE 10 MG TABLET PO (09:32)
[2025-03-07] MEDS: METOPROLOL TARTRATE 50 MG TAB PO (09:32)
[2025-03-07] MEDS: GABAPENTIN 300 MG CAPSULE PO (09:32)
[2025-03-07] MEDS: DULoxetine HCL 30 MG CAPSULE.DR PO (09:32)
[2025-03-07] MEDS: APIXABAN 2.5 MG TABLET 5 MG BY MOUTH (09:32)
[2025-03-07] MEDS: NIFEdipine 30 MG TAB.ER.24 PO (09:32)
--- NOTE | 2025-03-07 10:20 | PC.NURSE ---
Discharge instructions reviewed with patient. Patient verbalizes understanding. Patient taken ioff floor per wheelchair to personal vehicle.
== END 2025-03-07 10:20 | disposition home or self-care (01) ==
LOC: CHSED 09:24 → CHS2ND 09:30
PROVIDERS: Family Medicine; Nurse Practitioner Acute Care; Admitting Provider Internal Medicine; Emergency Provider Internal Medicine Critical Care Medicine; PCP Family Medicine; Visit Provider Internal Medicine
DX: I48.91 Unspecified atrial fibrillation (principal); I25.10 Atherosclerotic heart disease of native coronary artery without angina pectoris; I13.0 Hypertensive heart and chronic kidney disease with heart failure and stage 1 through stage 4 chronic kidney disease, or unspecified chronic kidney disease; N18.9 Chronic kidney disease, unspecified; I50.9 Heart failure, unspecified; I27.20 Pulmonary hypertension, unspecified; I25.2 Old myocardial infarction; F10.20 Alcohol dependence, uncomplicated; E83.42 Hypomagnesemia; E78.5 Hyperlipidemia, unspecified; I35.8 Other nonrheumatic aortic valve disorders; I77.819 Aortic ectasia, unspecified site; R25.1 Tremor, unspecified; E03.9 Hypothyroidism, unspecified; Z79.01 Long term (current) use of anticoagulants; Z79.899 Other long term (current) drug therapy; Z95.5 Presence of coronary angioplasty implant and graft
CPT/HCPCS: 36415; 71045; 80053; 81001; 82803; 83735; 83880; 84443; 84484; 84600; 85025; 85380; 93005; 96365; 96366; 96375; 96376; 97161; 97165; 99285; A9270; C8929; G0378; J1938; J2919; J3475; J7040; Q9957

== ENCOUNTER 2025-06-15 17:35 | Observation (INO) | payer MEDICARE, SELFPAY ==
[2025-06-15] VITALS (17 sets, daily range): BP systolic 92–126; BP diastolic 61–84; PULSE 68–91; RESP 16–26; TEMP 36.1–37.1; O2SAT 91–97; BMI 25.2
--- NOTE | ~2025-06-15 | XR_ITS ---
EXAMINATION: XR chest 1V portable Exam Date/Time: 06/15/2025 18:00 CDT HISTORY: Fall, Rt. chest wall pain/ SOB/ dizziness Comparison: 03/06/2025. RESULT: Lines, tubes, and devices: None. Lungs and pleura: Stable left hemidiaphragm elevation. Streaky left basilar scar/atelectasis. Cardiomediastinal silhouette: Stable. Other: No acute osseous or upper abdominal finding. Multiple right rib fractures. IMPRESSION: No acute cardiopulmonary process. Reviewed, dictated and finalized at location K.
--- NOTE | ~2025-06-15 | XR_ITS ---
EXAM: XR pelvis 1-2V DATE: 06/15/2025 18:19 HISTORY: Fall, Rt. sided pelvic pain . COMPARISON: None available. FINDINGS: Mild lumbar degenerative disc disease. Scattered vascular calcifications. Mild bilateral h ip osteoarthritis. Mild scattered pelvic enthesopathy. No fracture or dislocation. No lytic or blasti c lesion. IMPRESSION: No acute osseous finding in the pelvis. Reviewed, dictated and finalized at location K.
--- NOTE | ~2025-06-15 | CT_ITS ---
EXAMINATION: CT brain wo con DATE: 06/15/2025 18:18 INDICATION: Fall, head injury/ dizziness/ cervical pain . TECHNIQUE: Computed tomography (CT) of the head was performed without intravenous contrast. The mA wa s adjusted according to patient size. Iterative reconstruction technique was employed. The dose-lengt h product was 681.00 mGy-cm. COMPARISON: 10/21/2024. FINDINGS: No acute intracranial hemorrhage or extra-axial fluid collection. No hydrocephalus, mass, or herniation. No acute ischemic infarct. Unremarkable dural venous sinus attenuation. No acute osseous abnormality. Mild inferior maxillary sinus mucosal thickening, the remaining aerated spaces are clear. Mild atrophy and chronic white matter change. Atherosclerotic intracranial calcification. Bilateral l ens replacements. IMPRESSION: No acute intracranial process. Reviewed, dictated and finalized at location K.
--- NOTE | ~2025-06-15 | CT_ITS ---
EXAMINATION: CT cervical spine wo con DATE: 06/15/2025 18:18 INDICATION: Fall, head injury/ dizziness/ cervical pain TECHNIQUE: Computed tomography (CT) of the cervical spine was performed without intravenous contrast. Automated exposure control and iterative reconstruction technique were employed. The dose-length pro duct was 420.55 mGy-cm. COMPARISON: CT soft tissue neck 11/30/2024; CT C-spine 10/21/2024. FINDINGS: Vertebral Body Alignment: Stable multilevel trace degenerative listheses. Craniocervical and atlantoaxial alignment: Mild degenerative change. Alignment intact. Osseous structures/fracture: No evidence of a lytic or blastic process in the visualized spine. No e vidence of acute fracture. Cervical soft tissues: The paraspinal soft tissues planes are maintained. Degenerative changes: Degenerative changes, without severe neural foraminal or central canal narrowin g. IMPRESSION: No acute fracture or traumatic malalignment in the cervical spine. Reviewed, dictated and finalized at location K.
--- OUTSIDE RECORDS SUMMARY | 2025-06-15 17:38 | XMS_ITS | Encounter Summary ---
Author Organization [facility] Address [address] [place] [address] Care Team Providers Care Intelligence Manager Name Role Phone Emeka Garcia MD Unavailable [phone] Anne Kendrick MD Primary Care Provider [phone] Viv Seo MD Unavailable Kahlil Peres MD Primary Care Provider [phone] Melany Oseguera PA-C Unavailable + [phone] Encounter Details Date Type Department Care Team (Late st Contact Info) Description 01/02/2024 Hospital Follow-up Call [facility] [address] [place] [address] Dipika Moseley RN Social History Tobacco Use Types Packs/Day Years Used Date Smoking Tobacco: Never Smokeless Tobacco: Never Alcohol Use Standard Drinks/Week Comments Yes 0 (1 standard drink = 0.6 oz pur e alcohol) [facility] Utilities Answer Date Recorded In the past [...] place to sleep or slept in a residential (including now)? No 12/27/2023 Sex and Gender Information Value Date Recorded Sex Assigned at Male 12/04/2024 9:12 AM RAMP SUPERVISOR Legal Sex Male 5:48 PM RAMP SUPERVISOR Gender Identity Not on file Sexual Orientation [...] Assessment Author Status Yes 12/26/2023 9:15 PM RAMP SUPERVISOR Em Miranda RN Active * Do you have difficulty dressing or bathing? Answer Date of Assessment Author Status No 12/26/2023 9:15 PM Em Spann RN Active * Because of a physical, mental, or emotional condition, do you have difficulty doing errands alone such as visiting a doctor's office or shopping? Answer Date of Assessment Author Status Yes 12/26/2023 9:15 PM RAMP SUPERVISOR Em Miranda RN Active documented as of this encounter Mental Status * Because of a physical, mental, or emotional condition, do you have serious difficulty concentrating, remembering, or making decisions? Answer Entry Date Author Status No 12/26/2023 9:15 PM Em Spann RN Active documented in this encounter Plan of Treatment Upcoming Encounters Date Type Department Care Team (Late st Contact Info) Description 11/19/2025 1:00 PM RAMP SUPERVISOR Appointment [facility] [address] [place] [address] Viv Seo MD [address] [place], [place] [phone] 11/27/2025 11:30 AM RAMP SUPERVISOR [facility] [address] [place] [phone] Viv Seo MD [address] [place], [place] [phone] documented as of this encounter Goals Goal Patient Goal Type Associated Problems Recent Progress Patient-Stated? Author Patient will return to prior living situation and remain independent in ADLs upon discharge from hospital 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 RN documented as of this encounter Visit Diagnoses Not on filedocumented in this encounter Care Teams Intelligence Manager Relationship Specialty Start Date End Date Anne Kendrick MD [address] [place] [phone] PCP - General FAMILY PRACTICE 10/05/23 11/29/24 Kahlil Peres MD [address] [place] [address] PCP - General FAMILY PRACTICE 11/30/24 Emeka Garcia MD [address] [place] [id number] Consulting Physician CLINICAL CARDIAC ELECTROPHYSIOLOGY 03/30/23 Viv Seo MD [address] [place], [place] [address] Consulting Physician CARDIOVASCULAR DISEASE 05/11/24 Melany Oseguera PA-C [address] [place], [place] [address] Referring Physician PHYSICIAN THERAPIST PHYSICAL 04/01/25 documented as of this encounter
--- OUTSIDE RECORDS SUMMARY | 2025-06-15 17:38 | XMS_ITS | Encounter Summary ---
Author Organization [facility] Address [address] [place] [address] Care Team Providers Care Hydro Operator Name Role Phone Emeka Garcia MD Unavailable [phone] New Referring, Provider Primary Care Provider Un available Anne Kendrick MD Primary Care Provider + [phone] Viv Seo MD Unavailable Kahlil Peres MD Primary Care Provider [phone] Melany Oseguera PA-C Unavailable + [phone] Encounter Details Date Type Department Care Team (Latest Contact Info) Description 10/02/2023 Hospital Encounter Tyler Bennett MD [address] [phone] Social History Tobacco Use Types Packs/Day Years Used Date Smoking Tobacco: Never Smokeless Tobacco: Never Alcohol Use Standard Drinks/Week Comments Yes 16.7 (1 standard drink = 0.6 oz pure alcohol) [facility] Utilities Answer Date Recorded In the past 12 months has [employer], gas, oil, or water company threatened to [...] place to sleep or slept in a mcc (including now)? No 12/27/2023 Housing Stability Vital Sign Answer Varinder e Recorded In the last 12 months, was t here a time when you were not able to pay the mortgage or rent on time? No 11/30/2024 In the past 12 months, how m any times have you moved where you were living? 1 11/30/2024 At any time in the past 12 m [facility], were you homeless or living in a mcc (including now)? Patient unable to answer 11/30/2024 Sex and Gender Information Value Date Recorded Sex Assigned at Male 12/04/2024 9:12 AM TEACHER DANCING Legal Sex Male 5:48 PM TEACHER DANCING Gender Identity Not on file Sexual Orientation [...] 6:00 PM Reyes Gusman RN Active * [place] Suicide Severity Rating Scale (Screener/Recent Self-Report) Question Answer Date of Assessment Author Status 1. Wish to be (Past 1 Month) No 11/30/2024 6:00 PM Ella Gusman RN Act claudia 2. Non-Specific Active Suicidal Thoughts (Past 1 [...] or making decisions? Yes 11/30/2024 6:47 PM TEACHER DANCING Ella Burch RN Active * Because of a physical, mental, or emotional condition, do you have serious difficulty concentrating, remembering, or making decisions? Answer Entry Date Author Status No 10/02/2023 2:18 PM TEACHER DANCING Raul Adler RN Active documented in this encounter Plan of Treatment Upcoming Encounters Date Type Department Care Team (Late st Contact Info) Description 11/19/2025 1:00 PM TEACHER DANCING Appointment [facility] [address] [facility] [place] [address] Viv Seo MD [address] [place] [phone] 11/27/2025 11:30 AM TEACHER DANCING Office Visit [facility] [address] [place] [address] Viv Seo MD [address] [place] [phone] documented as of this encounter Goals Goal [...] Rule Out 12/19/2023 12/19/2023 12/19/2023 6:05 AM TEACHER DANCING COVID-19 Rule Out 12/26/2023 12/26/2023 12/26/2023 5:39 PM TEACHER DANCING documented as of this encounter Care Teams Hydro Operator Relationship Specialty Start Date End Date New Referring, Provider PCP - General UNKNOWN PHYSICIAN SPECIALTY 10/02/23 10/04/23 Anne Kendrick MD [address] [facility] [place] [phone] PCP - General FAMILY PRACTICE 10/05/23 11/29/24 Kahlil Peres MD [address] [place] [id number] PCP - General FAMILY PRACTICE 11/30/24 Emeka Garcia MD [address] [place] [id number] Consulting Physician CLINICAL CARDIAC ELECTROPHYSIOLOGY 03/30/23 Viv Seo MD [address] [place] [address] Consulting Physician CARDIOVASCULAR DISEASE 05/11/24 Melany Oseguera PA-C [address] [place], [place] [address] Referring Physician PHYSICIAN COVERAGE SPECIALIST 04/01/25 documented as of this encounter
--- OUTSIDE RECORDS SUMMARY | 2025-06-15 17:38 | XMS_ITS | Patient Health Record ---
Author Organization Cardiology Physician [facility] Address [address] [facility] [address] [place], [place] [id number] Care Team Providers Care Assembling Motor Builder Name Role Phone ALICE FALCON Unavailable [phone] Reason For Referral No Information Medications Medication SIG (Take, Route, Frequency, Duration) Notes Start Date End Date Status Eliquis 5 MG Oral 05/26/2022 Active FENOFIBRATE MICRONIZED 48 MG TABLET *Reorder from [facility] for eRx and Interaction Alerts* 05/26/2022 Active [...] Status W/U Status Risk Notes Problem Hypothyroidism (65042779) Hypothyroidism, unspecified (E03.9) 03/26/20 22 Active confirmed Problem Angina pectoris (256565827) Angina pectoris, unspecified (I20.9) 03/26/20 22 Active confirmed Problem Atherosclerotic heart disease of [place] coronary artery without angina pectoris (550070049327095) Atherosclerotic heart disease of [place] coronary artery without angina pectoris (I25.10) 05/26/20 22 Active confirmed Problem Chronic atrial fibrillation (265676897) Chronic atrial fibrillation (I48.2) 07/03/20 19 Active confirmed Problem Peripheral vascular disease (497021646) Peripheral vascular disease, unspecified (I73.9) 05/26/20 22 Active confirmed Problem Dyspnea (327823343) Dyspnea, unspecified (R06.00) 03/26/20 22 Active confirmed Problem Tremor (07312327) Tremor, unspecified (R25.1) 01/17/20 20 Active confirmed Problem Long-term current use of drug therapy (616534685) Other buttermaker helper (current) drug therapy (Z79.899) 03/26/20 22 Active confirmed Problem Mixed hyperlipidemia (586392123) Mixed hyperlipidemia (E78.2) 05/26/20 22 Active confirmed Problem Essential hypertension (76200149) Essential (primary) hypertension (I10) 06/09/20 23 Active confirmed Problem Mitral valve disorder (70157745) Nonrheumatic mitral (valve) insufficiency (I34.0) 03/26/20 22 Active confirmed Problem Atrial fibrillation (09421207) Unspecified atrial fibrillation (I48.91) 05/26/20 22 Active confirmed Plan Of Treatment No Information Insurance Providers Payer Name Payer Address Payer Phone Subscriber Number Group Number Insured Name Patient Relationship to Insured Coverage Start Date Coverage End Date Medicare Part B [address] [place] [phone] [id number] TERRI SALDIVAR Self - patient is the insured Medical (General) History Surgical History Surgery Date(Month/Year) Biopsy of lung (90844891) RIGHT Procedure on shoulder ([id number] [id number]) [employer] LEFT SHOULDER SEPARATION Colonoscopy 03/25/2013 Percutaneous transluminal co ronary angioplasty (79040678) STENT TO LAD -CARDIAC CATH 2 STENTS 08/21/2012
--- OUTSIDE RECORDS SUMMARY | 2025-06-15 17:39 | XMS_ITS | Clinical Summary ---
Author Organization [facility] Address [address] [place] [address] Care Team Providers Care Reservations Sales Agent Name Role Phone Emeka Garcia MD Unavailable [phone] Viv Childers MD Unavailable Kahlil Peres MD Primary Care Provider [phone] Melany Oseguera PA-C Unavailable [phone] Allergies Active Allergy Reactions Criticality Noted Date [...] (four) hours as needed for Pain. Active folic acid (FOLVITE) 1 MG tablet Take 1 tablet (1 mg total) by mouth daily. Active magnesium oxide (MAG-OX) 400 (240 Mg) MG tablet Take 1 tablet (400 mg total) by mouth 2 (two) times daily. Active multi vitamin/minerals (THERA-M ENHANCED) tablet Take 1 tablet by [...] (six) hours as needed for Wheezing. Active amLODIPine (NORVASC) 10 MG tablet Take 1 tablet (10 mg total) by mouth daily. 60 tablet 5 Active QUEtiapine (SEROQUEL) 25 MG tablet Take 1 tablet (25 mg total) by mouth 2 (two) times daily as needed (Agitation). 60 tablet 5 Active atorvastatin (LIPITOR) 80 MG tablet Take 1 tablet (80 mg total) by mouth nightly at bedtime. 5 Active lisinopril (PRINIVIL) 10 MG tablet Take 1 tablet (10 mg total) by mouth 2 (two) times daily. 5 Active ezetimibe (ZETIA) 10 MG tablet Take 1 tablet (10 mg total) by mouth daily. 5 Active metoprolol tartrate (LOPRESSOR) 50 MG tablet Take 1 tablet (50 mg total) by mouth 2 (two) times daily. 5 Active NIFEdipine XL (PROCARDIA-XL) 30 MG 24 hr tablet Take 1 tablet (30 mg total) by mouth daily. Active Choline Fenofibrate (FENOFIBRIC ACID) 45 MG CAPSULE DELAYED RELEASE Take 1 capsule by mouth daily. 5 Active levothyroxine (SYNTHROID) 125 MCG tablet Take 1 tablet (125 mcg total) by mouth daily. Active gabapentin (NEURONTIN) 300 MG capsule 1 (one) capsule by mouth at bedtime Active allopurinol (ZYLOPRIM) 100 MG tablet Take 2 tablets (200 mg total) by mouth daily. 5 Active Active Problems Problem Noted Date Diagnosed Date Longstanding persistent atri al fibrillation (CMS/HCC HHS/HCC) 05/01/2025 Chronic anticoagulation 05/01/2025 Chronic systolic CHF (conges tive heart failure) ([facility]) 05/01/2025 Parotiditis 11/30/2024 NSTEMI (non-ST elevated myoc ardial infarction) ([facility]) 12/26/2023 Multiple fractures of ribs, bilateral, initial encounter for closed fracture 10/02/2023 Fall 10/02/2023 SOB (shortness of breath) on exertion 12/30/2022 Encounters Date Type Department Care Team Description 05/20/2025 2:45 PM CDT Office Visit [facility] [place] [id number] [place] [phone] Viv Childers MD Heart Problem 05/20/2025 1:48 PM CDT - 05/20/2025 11:59 PM CDT Hospital Encounter [facility] [address] [place] [address] Viv Childers MD Discharge Disposition: Home or Self Care (Routine Discharge) 05/20/2025 Travel 05/17/2025 Telephone [facility] [address] [place] [address] Viv Childers MD Appointment Reminder 05/13/2025 Orders Only [facility] [address] [place] [address] Viv Childers MD 05/01/2025 12:30 PM CDT Office Visit [facility] [place] [place] [phone] Melany Oseguera PA-C Follow Up 05/01/2025 12:15 PM CDT - 05/01/2025 11:59 PM CDT Hospital En[facility] [place] [address] Melany Oseguera PA-C Discharge Disposition: Home or Self Care (Routine Discharge) 05/01/2025 Travel 04/26/[address] [facility] [place] [address] Emeka Garcia MD 04/25/2025 [facility] [address] [place] [address] Eliza Mcmahon LPN Pre-visit Gap Closure from Last 3 Months Immunizations Immunization Administration Dates Next Due Tdap (Boostrix) 07/11/2024 Tdap (Generic) 06/03/2015 Social History Tobacco Use Types Packs/Day Years Used Date Smoking Tobacco: Never Smokeless Tobacco: Never Tobacco Cessation:Counseling Given: Not Answered Alcohol Use Standard Drinks/Week Comments Yes 16.7 (1 standard drink = 0.6 oz pure alcohol) [facility] [employer] Answer Date Recorded In the past 12 months has [facility] [employer], gas, oil, or water [employer] threatened to shut off services in your [...] place to sleep or slept in a intermediate (including now)? No 12/27/2023 Housing Stability Vital [...] were you homeless or living in a intermediate (including now)? Patient unable to answer 11/30/2024 Sex and Gender Information Value Date Recorded Sex Assigned at Male 12/04/2024 9:12 AM DISC RECORDIST Legal Sex Male 5:48 PM DISC RECORDIST Gender Identity Not on file Sexual Orientation Not on file Last Filed Vital Signs Vital Sign Reading Time Taken Comments Blood Pressure 153/88 05/20/2025 2:50 PM CDT Pulse 85 05/20/2025 2:44 PM CDT Temperature 36.5 C (97.7 F) 12/18/2024 8:01 AM DISC RECORDIST Respiratory Rate 16 05/20/2025 2:44 PM CDT Oxygen Saturation 98% 05/20/2025 2:44 PM CDT Inhaled Oxygen Concentration - - Weight 76.2 kg (168 lb) 05/20/2025 2:44 PM CDT Height 177.8 cm (5' 10) 05/20/2025 2:44 PM CDT Body Mass Index 24.11 05/20/2025 2:44 PM CDT Plan of Treatment Upcoming Encounters Date Type Department Care Team (Late st Contact Info) Description 11/19/2025 1:00 PM DISC RECORDIST Appointment [facility] [address] [address] Viv Childers MD [address] [place] [address] 11/27/2025 11:30 AM DISC RECORDIST Office Visit [facility] [place] [phone] Viv Childers MD [address] [place] [address] Health Maintenance Due Date Last Done Comments Colorectal Cancer Screening Colonoscopy (10 Years) 1955 Hepatitis C 1973 Pneumococcal Vaccine: 50+ Years (1 of 2 - PCV) 1974 Zoster Vaccines (1 of 2) 2005 RSV [...] ADLs upon discharge from hospital Lifestyle Vicky Moreira, service center supervisor Procedure Name Priority Date/Time Associated Diagnosis Comments ECG 12-LEAD Routine 05/20/2025 1:58 PM CDT Non-ST elevated myocardial infarction (CMS/HCC HHS/HCC) ECG 12-LEAD Routine 05/01/2025 12:41 PM CDT Longstanding persistent atrial fibrillation (CMS/HCC HHS/HCC) LIPID PANEL Routine 12/27/2023 7:08 AM DISC RECORDIST from Last 3 Months or Most Recently Relevant to Health Maintenance Results * ECG 12-Lead (05/20/2025 1:58 PM CDT) Only the most recent of2 resultswithin the time period is included. 05/20/2025 1:58 PM CDT Narrative [facility] - 05/20/2025 6:22 PM CDT [address] [place] [address] Test Date: 2025-05-20 Pat Name: [facility] Department: 3 Room: Gender: Male Commodity Buyer: : 1955 Requested By: VIV CHILDERS Order Number: [id number] Reading MD: Viv Childers Measurements Intervals [place] Rate: 86 P: 0 AL: 0 QRS: -50 QRSD: 113 T: 53 QT: 383 QTc: 458 Interpretive Statements ATRIAL FIBRILLATION WITH ABERRANT CONDUCTION OR VENTRICULAR PREMATURE COMPLEXES LEFT ANTERIOR FASCICULAR BLOCK [QRS AXIS <= -45, QR IN I, RS IN II] MODERATE VOLTAGE CRITERIA FOR LVH, CONSIDER NORMAL VARIANT [MEETS CRITERIA IN ONE OF: R(aVL), S(V1), R(V5), R(V5/V6)+S(V1)] MINIMAL ST DEPRESSION [0.025+ mV ST DEPRESSION] Procedure Note Viv Childers MD - 05/20/[address] [place] [address] Test Date: 2025-05-20 Pat Name: [facility] Department: 3 Room: Gender: Male Commodity Buyer: : 1955 Requested By: VIV CHILDERS Order Number: [id number] Reading MD: Viv Childers Measurements Intervals [place] Rate: 86 P: 0 AL: 0 QRS: -50 QRSD: 113 T: 53 QT: 383 QTc: 458 Interpretive Statements ATRIAL FIBRILLATION WITH ABERRANT CONDUCTION OR VENTRICULAR PREMATURE COMPLEXES LEFT ANTERIOR FASCICULAR BLOCK [QRS AXIS <= -45, QR IN I, RS IN II] MODERATE VOLTAGE CRITERIA FOR LVH, CONSIDER NORMAL VARIANT [MEETSCRITERIA IN ONE OF: R(aVL), S(V1), R(V5), R(V5/V6)+S(V1)] MINIMAL ST DEPRESSION [0.025+ mV ST DEPRESSION] Viv Childers MD ECG ORDERABLES Final Result Performing Organization Address [facility]/ZIP Co de Phone Number [facility] * LIPID PANEL (12/27/2023 7:08 AM DISC RECORDIST) CHOLESTEROL 131 MG/DL 12/27/2023 8:36 AM [facility] Comment:DESIRABLE: <200 TRIGLYCERIDES 124 MG/DL 12/27/2023 8:36 AM [facility] Comment:<150 NORMAL HDL 54 >39 MG/DL 12/27/2023 8:36 AM [facility] LDL (CALCULATED) 52 MG/DL 12/27/19 8:36 AM [facility] Comment:<100 OPTIMAL VLDL CALCULATION 25 MG/DL 12/27/19 8:36 AM [facility] Comment:REFERENCE RANGE NOT ESTABLISHED CHOL/HDL RATIO 2.4 12/27/2023 8:36 AM [facility] Comment:REFERENCE RANGE NOT ESTABLISHED LDL/HDL 1.0 12/27/2023 8:36 AM [facility] Comment:REFERENCE RANGE NOT ESTABLISHED NON HDL CHOLESTEROL 77 MG/DL 12/27/2023 8:36 AM [facility] Comment:REFERENCE RANGE NOT ESTABLISHED 12/27/2023 7:08 AM DISC RECORDIST Arline Calixto MD LABORATORY Final Res ult Performing Organization Address City/[facility]/ZIP Co de Phone Number [facility] [address] [place] [address], [phone] from Last 3 Months or Most Recently Relevant to Health Maintenance Insurance MEDICARE Advance Directives Documents on File Type Date Recorded 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
--- OUTSIDE RECORDS SUMMARY | 2025-06-15 17:39 | XMS_ITS | Data Portability ---
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 Name Role Phone GRIFFIN FAGAN Primary Care Provider GRIFFIN FAGAN Referring Provider Assessment Encounter Date [...] lear antibodi es) screen, serum 2015 016 [facility], [address], [address], [place], [address], 6 10:12:57 protein electrop horesis, 24-hr urine 2015 016 [facility], [address], [address], [place], [address], 6 10:12:57 rf (rheumat oid factor), titer, serum 2015 016 [facility], [address], [address], [place], [address], 6 10:12:57 CK (creatin e kinase) mb/CK total, ratio, serum (OBS) 2015 016 [facility], [address], [address], [place], [address], 6 10:12:57 vitamin B1 (thiamin e), serum 2015 016 [facility], [address], [address], [place], [address], 6 10:12:57 vitamin B6 (pyridox ine), plasma 2015 016 [facility], [address], [address], [place], [address], 6 10:12:58 CMP, serum or plasma 2015 016 [place] [address] [email or web address], [address], [address], [place], [address], 6 10:12:58 CBC 2015 016 [email or web address], [address], [address], [place], [address], 6 10:12:58 HbA1c (hemoglo bin A1c), blood 2015 016 [email or web address], [address], [address], [place], [address], 6 10:12:58 vitamin B12 + folate, serum or blood 2015 016 [email or web address], [address], [address], [place], [address], 6 10:12:58 Referral vestibul ar therapy referral - Likely BPPV (Please re-sched ule) [address] [facility], [address], [address], [place], [address], 6 15:34:28 vestibul ar therapy referral - Likely BPPV 2015 016 [facility], [address], [address], [place], [address], 6 12:41:29 Procedures None recorded . Surgeries None recorded . Imaging electrom yogram/n erve ravindrai on study 2015 Carly Moreno MD, [address], [place], [address], 6 14:25:32 electrom yogram/n erve conducti on study 2015 016 DARRYL Mateo Moreno MD, [address] [place], [address], 6 09:44:16 MRI, brain 2015 016 [email or web address] [facility] [facility] [address] [facility] [place], [address], 6 09:19:50 Medication Orders None recorded . Patient TargetsNo targets recorded. Patient Instructions Encounter Date Encounter Id Patient Instructions Last Modified By Organization Details Last Modified Time 12/08/2015 [id number] learning about a closed head injury Not available 12/09/2015 09:20:23 12/31/2015 [id number] learning about a closed head injury Not available 01/01/2016 11:30:04 learning about a n ischemic stroke Not available 01/01/2016 11:30:04 04/13/2016 [id number] learning about a closed head injury Not available 04/13/2016 15:24:44 learning about a n ischemic stroke Not available 04/13/2016 15:24:43 08/06/2016 [id number] learning about a n ischemic stroke Not available 08/09/2016 21:17:59 Reason for Referral Vestibular Therapy Referral for Vertigo Likely BPPV Referring Physician: Mateo Moreno Neurology, Encounter Date: 12/31/2015 Vestibular Therapy Referral for Vertigo Likely BPPV (Please re-schedule) Referring Physician: Mateo Moreno Neurology, Encounter Date: 04/13/2016 Results Created Date Observation Date Name Description Value Unit Range Abnormal Flag Note LastModifiedBy Organization Detail LastModifiedTime 12/31/19 16 12/31/2015 elect romyo gram/ nerve condu ction study EMG normal normal Not Available Mateo Moreno MD [address], [place], [address], 12/31/2015 12:57:22 02/10/20 16 12/31/2015 elect romyo gram/ nerve condu ction study Nerve Conduction Study 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 Not Available Mateo Moreno MD [address], [place], [address], 12/31/2015 12:57:22 12/08/19 16 12/09/2015 elect romyo gram/ nerve condu ction study EMG Not Available Mateo Moreno MD [address], [place], [address], 12/08/2015 14:13:17 12/08/19 16 12/09/2015 elect romyo gram/ nerve condu ction study Nerve Conduction Study Not Available Caren Moreno MD [address], [place], [address], 12/08/2015 14:13:17 04/09/20 16 04/14/2016 CMP, serum or plasm a glucose 113 mg/dL 65-99 high Fasti ng refer ence inter teresa Not Available [email or web address] [place] [facility] [address], [place], [address], 04/14/2016 15:28:14 04/09/20 16 04/14/2016 CMP, serum or plasm a urea nitrogen (BUN) 19 mg/dL 7-25 normal Not Available [email or web address] [place] [facility] [address], [place], [address], 04/14/2016 15:28:14 04/09/20 16 04/14/2016 CMP, serum or plasm a creatinine 1.17 mg/dL 0.70-1 .25 normal For patie nts >49 years of age, the refer ence limit for Creat inine is appro ximat diogenes 13% highe r for peopl e ident ified as Afric an-Am ilan n. Not Available [email or web address] [place] [facility] [address], [place], [address], 04/14/2016 15:28:14 04/09/20 16 04/14/2016 CMP, serum or plasm a eGFR non-afr. omani 67 mL/mi n/1.7 3m2 > or = 60 normal Not Available [facility] [address], [place], [address], 04/14/2016 15:28:14 04/09/20 16 04/14/2016 CMP, serum or plasm a eGFR 78 mL/mi n/1.7 3m2 > or = 60 normal Not Available [facility] [address], [place], [address], 04/14/2016 15:28:14 04/09/20 16 04/14/2016 CMP, serum or plasm a BUN/creatini ne ratio NOT APPLIC ABLE (calc ) 6-22 Not Available [facility] [address], [place], [address], 04/14/2016 15:28:14 04/09/20 16 04/14/2016 CMP, serum or plasm a sodium 138 mmol/ L 135-14 6 normal Not Available [facility] [address], [place], [address], 04/14/2016 15:28:14 04/09/20 16 04/14/2016 CMP, serum or plasm a potassium 4.7 mmol/ L 3.5-5. 3 normal Not Available [facility] [address], [place], [address], 04/14/2016 15:28:14 04/09/20 16 04/14/2016 CMP, serum or plasm a chloride 105 mmol/ L 98-110 normal Not Available [facility] [address], [place], [address], 04/14/2016 15:28:14 04/09/20 16 04/14/2016 CMP, serum or plasm a carbon dioxide 26 mmol/ L 19-30 normal Not Available [facility] [address], [place], [address], 04/14/2016 15:28:14 04/09/20 16 04/14/2016 CMP, serum or plasm a calcium 9.5 mg/dL 8.6-10 .3 normal Not Available [facility] [address], [place], [address], 04/14/2016 15:28:14 04/09/20 16 04/14/2016 CMP, serum or plasm a protein, total 7.0 g/dL 6.1-8. 1 normal Not Available [facility] [address], [place], [address], 04/14/2016 15:28:14 04/09/20 16 04/14/2016 CMP, serum or plasm a albumin 3.8 g/dL 3.6-5. 1 normal Not Available [facility] [address], [place], [address], 04/14/2016 15:28:14 04/09/20 16 04/14/2016 CMP, serum or plasm a globulin 3.2 g/dL_ (calc ) 1.9-3. 7 normal Not Available [facility] [address], [place], [address], 04/14/2016 15:28:14 04/09/20 16 04/14/2016 CMP, serum or plasm a albumin/glob ulin ratio 1.2 (calc ) 1.0-2. 5 normal Not Available [facility] [address], [place], [address], 04/14/2016 15:28:14 04/09/20 16 04/14/2016 CMP, serum or plasm a bilirubin, total 0.7 mg/dL 0.2-1. 2 normal Not Available [facility] [place] [facility] [address], [place], [address], 04/14/2016 15:28:14 04/09/20 16 04/14/2016 CMP, serum or plasm a alkaline phosphatase 62 U/L 40-115 normal Not Available [facility] [place] [facility] [address], [place], [address], 04/14/2016 15:28:14 04/09/20 16 04/14/2016 CMP, serum or plasm a AST 39 U/L 10-35 high Not Available [facility] [place] [facility] [address], [place], [address], 04/14/2016 15:28:14 04/09/20 16 04/14/2016 HbA1c (hemo globi n A1c), blood hemoglobin A1C 6.4 %_of_ total _HGB <5.7 high Accor ding to ADA guide lines , hemog lobin A1c <7.0% repre sents optim al contr ol in non-p regna nt diabe tic patie nts. Diffe rent metri cs may apply to speci fic patie nt popul atsherrell s. Stand ards of Medic al Care in Diabe nacho-2 013. Diabe nacho Care. 2013; 36:s1 1-s66 For the purpo se of demi herandez for the prese nce of diabe nacho [...] child geovanny. Not Available [facility] [place] [facility] [address], [place], [address], 04/14/2016 15:28:15 04/09/20 16 04/14/2016 CK (crea mynor kinas e), total , serum creatine kinase, total 128 U/L 44-196 normal Not Available [facility] [address], [place], [address], 04/14/2016 15:28:15 04/09/20 16 04/14/2016 vitam in B1 (thia mine) , blood vitamin B1 (thiamine), blood, lc/MS/MS 116 nmol/ L 78-185 Not Available [facility] [address], [place], [address], 04/14/2016 15:28:15 04/09/20 16 04/14/2016 vitam in B6 (pyri doxin e), plasm a vitamin B6 10.3 NG/mL 2.1-21 .7 Not Available [facility] [address], [place], [address], 04/14/2016 15:28:16 04/09/20 16 04/14/2016 CBC white blood cell count 6.1 thous and/u L 3.8-10 .8 normal Not Available [facility] [address], [place], [address], 04/14/2016 15:28:16 04/09/20 16 04/14/2016 CBC red blood cell count 4.38 caroline on/uL 4.20-5 .80 normal Not Available [facility] [address], [place], [address], 04/14/2016 15:28:16 04/09/20 16 04/14/2016 CBC hemoglobin 14.5 g/dL 13.2-1 7.1 normal Not Available [facility] [address], [place], [address], 04/14/2016 15:28:16 04/09/20 16 04/14/2016 CBC hematocrit 44.6 % 38.5-5 0.0 normal Not Available [facility] [place] [address], [place], [address], 04/14/2016 15:28:16 04/09/20 16 04/14/2016 CBC MCV 101.8 fL 80.0-1 00.0 high Not Available [facility] [address], [place], [address], 04/14/2016 15:28:16 04/09/20 16 04/14/2016 CBC MCH 33.2 pg 27.0-3 3.0 high Not Available [facility] [address], [place], [address], 04/14/2016 15:28:16 04/09/20 16 04/14/2016 CBC MCHC 32.6 g/dL 32.0-3 6.0 normal Not Available [email or web address] [address], [place], [address], 04/14/2016 15:28:16 04/09/20 16 04/14/2016 CBC RDW 14.3 % 11.0-1 5.0 normal Not Available [facility] [address], [place], [address], 04/14/2016 15:28:16 04/09/20 16 04/14/2016 CBC platelet count 167 thous and/u L 140-40 0 normal Not Available [facility] [address], [place], [address], 04/14/2016 15:28:16 04/09/20 16 04/14/2016 CBC MPV 8.4 fL 7.5-11 .5 normal Not Available [facility] [address], [place], [address], 04/14/2016 15:28:16 04/09/20 16 04/14/2016 vitam in [...] sympt oms. Not Available [facility] [place] [facility] [address], [place], [address], 04/14/2016 15:28:16 04/09/20 16 04/14/2016 vitam in B12 + folat e, serum or blood folate, serum 7.4 NG/mL normal Refer ence Range Low: <3.4 Borde rline : 3.4-5 .4 Lyn l: >5.4 Not Available [facility] [place] [facility] [address], [place], [address], 04/14/2016 15:28:16 04/09/20 16 04/14/2016 HILL (anti nucle ar antib odies ) scree n, serum anachoice(R) screen NEGATI VE negati ve normal A negat claudia ANAch oice( R) indic ates the absen ce of detec table antib odies to compo nent johanna nacho consi sting of dsDNA , Chrom atin, GLOBE CHANGER, Sm/RN P, Sm, SSA, SSB, Rose-1, Centr [...] cirrh osis. Not Available [facility] [place] [facility] [address], [place], [address], 04/14/2016 15:28:17 04/09/20 16 04/14/2016 rf (rheu matoi d facto r), serum rheumatoid factor 7 IU/mL <14 normal Not Available [facility] [place] [facility] [address], [place], [address], 04/14/2016 15:28:17 04/10/20 16 04/14/2016 prote in [facility] , 24-hr urine creatinine, 24 hour urine 1.71 g/24_ h 0.63-2 .50 normal Not Available [facility] [place] [facility] [address], [place], [address], 04/14/2016 17:59:19 04/10/20 16 04/14/2016 prote in [facility] , 24-hr urine protein/crea tinine ratio 1175 mg/g_ creat < or = 84 high Not Available [facility] [place] [facility] [address], [place], [address], 04/14/2016 17:59:19 04/10/20 16 04/14/2016 prote in [facility] , 24-hr urine protein, total, 24 HR ur 2010 mg/24 _h <150 high Not Available [facility] [place] [facility] [address], [place], [address], 04/14/2016 17:59:19 04/10/20 16 04/14/2016 prote in [facility] , 24-hr urine albumin 77 % Not Available [facility] [place] [facility] [address], [place], [address], 04/14/2016 17:59:19 04/10/20 16 04/14/2016 prote in [facility] , 24-hr urine syspc-3-hrbb ulins 4 % Not Available [facility] [place] [facility] [address], [place], [address], 04/14/2016 17:59:19 04/10/20 16 04/14/2016 prote [facility] elect [facility] , 24-hr urine uizge-4-uvrz ulins 4 % Not Available [facility] [place] [facility] [address], [place], [address], 04/14/2016 17:59:19 04/10/20 16 04/14/2016 prote in elect [facility] , 24-hr urine beta globulins 9 % Not Available [facility] [place] [facility] [address], [place], [address], 04/14/2016 17:59:19 04/10/20 16 04/14/2016 prote in elect [facility] , 24-hr urine gamma globulins 6 % Not Available [facility] [place] [facility] [address], [place], [address], 04/14/2016 17:59:19 04/10/20 16 04/14/2016 prote in elect [facility] , 24-hr urine interpretati on Patte rn consi stent with glome rular prote inuri a. Not Available [facility] [place] [facility] [address], [place], [address], 04/14/2016 17:59:19 01/01/20 16 01/01/2016 elect romyo gram/ nerve condu ction study No observ ation record ed. BARCODE Not Available 2015 09:45:31 Result Notes None recorded. Problems Name Problem SNOMED Code Status Onset Date Resolution Date Notes Provider Name and Address Organization Details Recorded Time Abnormal gait [id number] Fernando Moreno MD [address] [place] [address], [address] , [facility] 6 14:14:19 Closed injury of head [id number] Fernando Moreno MD [address] [place] [address], [address] , [facility] 6 14:14:19 Peripheral nerve disease [id number] Fernando Moreno , MD [address] [place], [address] , [facility] 6 14:14:19 Vertigo 659072135 Active Mateo Moreno MD [address] [place], [address] , [facility] 6 14:14:19 Ischemic stroke 554488525 Active Mateo Moreno MD [address] [place], [address] , [facility] 6 14:14:19 Problem Notes None recorded. Medical Equipment None Reported. Allergies Allergen ID Allergen Name Allergen Category Reaction Reaction Severity Criticality Documentation Date Start Date Code Code System Note Provider Name and Address Organization Details Recorded Time 45249 magnesium medicatio n Not available Not available Not available 12/08/2015 6574 RxNorm STEWART GUTIERREZ [facility] 6 13:33:50 Medications Name Sig Start Date Stop Date [...] Heart rate Body weight Body height Systolic And Diastolic Provider Name and Address Organization Details Last Updated DateTime 12/08/2015 28.3 kg/m2 77 /min 20801.69 689 g 177.8 cm 136/82 mm[Hg] [facility] 6 13:33:50 Date Recorded Body height Body mass index (BMI) Heart rate Body weight Systolic And Diastolic Provider Name and Address Organization Details Last Updated DateTime 12/31/2015 177.8 cm 27.7 kg/m2 85 /min 41556.32 741 g 134/76 mm[Hg] [facility] 6 12:07:17 Date Recorded Body height Body weight Heart rate Body mass index (BMI) Systolic And Diastolic Provider Name and Address Organization Details Last Updated DateTime 04/13/2016 177.8 cm 70924.40 371 g 74 /min 26.3 kg/m2 136/80 mm[Hg] [facility] 6 13:21:58 Date Recorded Body height Heart rate Body weight Body mass index (BMI) Systolic And Diastolic Provider Name and Address Organization Details Last Updated DateTime 08/06/2016 177.8 cm 86 /min 11425.96 g 27.1 kg/m2 158/84 mm[Hg] [facility] 6 13:06:18 Social History Question Answer Notes LastModified by Organizat ion Details LastModified Time Tobacco Smoking Status Never Smoker Not Available [facility] 09/23/2020 03:28:46 What Is Your Level Of Caffeine Consumption? None [id number] Information not available 09/23/2020 How Much Tobacco Do You Chew? None [id number] Information not available 09/23/2020 What Type Of Diet Are You Following? REGULAR [id number] Information not available 09/23/2020 Which Illicit Or Recreational Drugs Have You Used? No [id number] Information not available 09/23/2020 Family History Of Heart Disease? Yes [facility] Information not available 12/01/2015 Which Of Your Hands Is Dominant? Right [id number] Information not available 09/23/2020 High Blood Pressure Yes [facility] Information not available 12/01/2015 Live Alone Or With Others? With Others [facility] not available 12/01/2015 How Much Tobacco Do You Smoke? No [id number] Information not available 09/23/2020 Sex: Unknown Functional Status Question Answer Note LastModified by Organizat ion Details LastModified Time What is your level of alcohol consumption? Heavy [id number] Information not available 09/23/2020 What is your exercise level? Occasional [id number] Information not available 09/23/2020 Mental Status None recorded. Family History Nothing Reported. Medical History Condition Response Coronary Artery Disease N Hyperthyroidism N Head Trauma/Injury N Tremors Y Hypothyroidism N Depression N Glaucoma N Bipolar N Weakness in extremities Y [...] Black Outs N Heart Attack (AL) N Diabetes N Loss of vision N [...] SNOMED-CT Code Diagnosis ICD10 Code Diagnosis Note [id number] Mateo Moreno MD Main Office [address] [place] [address] 12/08/2015 12:23:07 12/08/2015 14:41:29 Abnormal gait 36673149 R26.9 Closed injury of head 45 70580349 06 S09.90XS Peripheral nerve disease 860059823 G64 13444 Mateo Moreno MD Main Office [address] [place] [address] 12/31/2015 11:34:44 12/31/2015 14:25:32 Abnormal gait 38613715 R26.9 Peripheral nerve disease 616502863 G64 E53.8 E11.40 Closed injury of head 45 10760564 06 S09.90XS Vertigo 908050273 R42 Ischemic stroke 80483464 2 I63.9 54043 Mateo Moreno MD Main Office [address] [place] [address] 04/13/2016 12:44:27 04/13/2016 14:35:06 Vertigo 823283607 R42 Ischemic stroke 72110573 2 I63.9 Abnormal gait 21693420 R 26.9 Peripheral nerve disease 900788989 G64 E53.8 E11.40 Closed injury of head 45 84028662 06 S09.90XS 68605 Mateo Moreno MD Main Office [address] [place] [address] 08/06/2016 12:43:06 08/06/2016 14:32:43 Abnormal gait 75924064 R26.9 Peripheral nerve disease 879647903 G64 E53.8 E11.40 Vertigo 196131878 R42 Ischemic stroke 74946648 2 I63.9 Health Concerns Section Related Observation LastModified by Organization Detai ls LastModified Time None Recorded Concern Status LastModified by Organization Details LastModified Time None Recorded Advance Directives Directive None Recorded Payers Insurance Date Sequence Insurance Name Policy Number Policy Diggs Covered Member ID Diggs Member ID Guarantor Name 02/04/2017 1 [employer] - OPEN ACCESS [facility] [id number] Claudio Devries [id number] Claudio Devries 01/30/2017 PAYMENT PLAN Claudio Devries Notes Date Note Type Note [...] lieu of his complaints. Mateo Moreno MD [address] [place] [address], [phone], [facility] [place] 12/08/2015 23:48:15 12/31/2015 text/html Mr. Devries is here for follow up and planned EMG/NCS of the lower extremities. In the interim between visits, there has been no appreciable changes in his neurologic course. The requested brain MRI was completed yesterday (12/30/15 [facility]), and was reviewed today. 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 He brought an older CT brain image on CD (06/03/15 [facility]) which would not open on our computer, [...] him for vestibular rehab. Mateo Moreno MD [address] [place] [address], [phone], [facility] 01/07/2016 22:47:13 04/13/2016 text/html Mr. Devries is here for follow up and review of neurologic [...] was otherwise unchanged overall. Mateo Moreno MD [address] [place] [address], [phone], [facility] 04/14/2016 23:06:55 08/06/2016 text/html Mr. Devries is here for follow up and review of neurologic course. The patient has completed PT for gait imbalance and vestibular rehab. The patient has had complete resolution of in his prior vertigo symptoms, although continues to struggle with his walking. This is due to a number of co-factors, including UGNER (workup in progress), joint pains, as well as imbalance from his neuropathy. His exam today remains unchanged overall. Mateo Moreno MD [address] [place] [address], [phone], [place] [facility] [place] 08/06/2016 13:52:22
--- NOTE | 2025-06-15 17:44 | ED_ITS ---
HPI - Fall General Chief Complaint: Fall Stated Complaint: etoh, fall Source: patient and EMS Mode of arrival: ambulatory Limitations: no limitations History of Present Illness HPI Narrative: 70-year-old male history of alcoholism, hypertension, CAD status post stents with negative stress test 2 years ago, AFib, HFpEF, , CKD with a baseline creatinine of 1.8, hypothyroidism, dyslipidemia, ascending aortic aneurysm presents to the ED with -- alcohol intoxication -- multiple falls with abrasion of his forehead, left arm, -- loss of consciousness for an unknown period of time -- right lower chest wall pain on presentation the patient is hemodynamically stable.. Stable oxygenation. MD complaint: fall Onset (ago): hour(s) ( 2 hours ago) Fall from: standing Fall witnessed: yes, by family Place fall occurred: home Loss of consciousness: yes Prolonged down time: yes Context: tripped/slipped Location of injury: head Location of injury - extremities: Left: arm Associated symptoms (after fall): chest pain ( right lower chest wall pain) Related Data Home Medications ?Medication ?Instructions ?Recorded ?Confirmed ?Last Taken ?Type atorvastatin 80 mg tablet 80 mg PO QPM 07/01/23 03/06/25 03/05/25 20:39 History duloxetine 30 mg capsule,delayed 30 mg PO DAILY 07/01/23 03/06/25 03/05/25 20:38 History release ezetimibe 10 mg tablet 10 mg PO DAILY 07/01/23 03/06/25 03/06/25 08:38 History fenofibric acid (choline) 45 mg 45 mg PO DAILY 07/01/23 03/06/25 03/06/25 08:37 History capsule,delayed release nifedipine 30 mg tablet,extended 30 mg PO DAILY 07/01/23 03/06/25 03/06/25 08:35 History release 24 hr torsemide 10 mg tablet 10 mg PO DAILY 07/01/23 03/06/25 03/06/25 08:34 History apixaban 5 mg tablet (Eliquis) 5 mg PO BID 10/25/24 03/06/25 03/06/25 08:41 History allopurinol 100 mg tablet 100 mg PO DAILY 03/06/25 03/06/25 03/06/25 08:41 History gabapentin 300 mg capsule 300 mg PO DAILY 03/06/25 03/06/25 03/05/25 20:33 History levothyroxine 125 mcg tablet 137 mcg PO DAILY@0630 03/06/25 03/06/25 03/06/25 07:32 History lisinopril 10 mg tablet 10 mg PO BID 03/06/25 03/06/25 03/06/25 08:37 History metoprolol tartrate 25 mg tablet 50 mg PO Q12HR 03/06/25 03/06/25 03/06/25 08:35 History Allergies Allergy/AdvReac Type Severity Reaction Status Date / Time magnesium sulfate AdvReac Intermediate Flushing Verified 03/28/25 07:31 Review of Systems 2 Review of Systems: All systems reviewed & are unremarkable except as noted in HPI and below Constitutional: Constitutional: Reports as per HPI and Reports no additional constitutional complaints Eyes: Eyes: Reports as per HPI and Reports no additional eye complaints ENT: Reports system reviewed and no additional complaints, except as documented and Reports as per HPI Cardiovascular: Cardiovascular: Reports as per HPI and Reports no additional cardiovascular complaints Respiratory: Respiratory: Reports as per HPI and Reports no additional respiratory complaints Comments: right lower chest wall pain Gastrointestinal: Gastrointestinal: Reports as per HPI and Reports no additional gastrointestinal complaints Genitourinary: Genitourinary: Reports no additional male genitourinary complaints and Reports as per HPI Musculoskeletal: Musculoskeletal: Reports no additional musculoskeletal complaints and Reports as per HPI Integumentary/Breasts: Skin/Breast: Reports system reviewed and no additional complaints, except as docu and Reports as per HPI Comments: abrasion on the forehead and the left anterior. Multiple other bruises noted on upper and lower extremiti Neurologic: Reports system reviewed and no additional complaints, except as documented and Reports as per HPI Psychiatric: Psychiatric: Reports no additional psychiatric complaints and Reports as per HPI Endocrine: Endocrine: Reports no additional endocrine complaints and Reports as per HPI Hematologic/Lymphatic: Hematologic/Lymphatic: Reports no additional hematologic/lymphatic complaints and Reports as per HPI Allergic/Immunologic: Allergic/Immunologic: Reports no additional allergic/immunologic complaints and Reports as per HPI PMFSH Past Medical History Medical History Tremor of both hands Hypothyroidism CAD (coronary artery disease) Ascending aorta dilatation Myocardial infarction Hyperlipidemia Hypertension Alcoholism A-fib Closed rib fracture Social History Social History Smoking status: Never smoker Second hand tobacco smoke exposure: No Alcohol intake: former Drinks per week: 2 Substance use: never Substance use type: does not use Do You Feel Safe in your Home?: Yes Lack of Transportation: No Lack of Food: Never True Current Housing: I Have Housing Concerned About Future Housing: No Difficulty Paying Gas/Electric Bills: No Difficulty Paying for Meds: No Currently Unemployed: No Education: High School Diploma/GED Difficulty w/ Childcare or Family Care: No Spiritual care concerns: No Exam 2 Narrative: Blood pressure is 92/63. Oxygen saturation of 94% on room air. Const: General: no acute distress Orientation/consciousness: patient oriented x3 Limitations: no limitations HENMT: Head images: 1. abrasion over the forehead Ears: external ears normal and TM's normal bilaterally Face/Nose/Sinus: N ormal external nose present Face and sinus: normal facial exam Mouth: Yes Normal oral and palatal mucosa present Throat: posterior oropharynx normal Eyes: Conjunctivae: conjunctivae normal Pupils: Equal, round and reactive pupils present EOM: EOMs intact bilaterally Direct Ophthalmoscopy: no photophobia Neck: Neck: normal visual inspection, no lymphadenopathy and no meningeal signs Chest: Chest palpation & inspection: normal inspection of the chest Other: No cell significant chest wall tenderness noted on right lower chest wall. Resp: Effort & Inspection: normal respiratory effort Auscultation: clear to auscultation bilaterally Cardio: Rate: tachycardic Rhythm: abnormal rhythm GI: Auscultation: normal bowel sounds Other: no tenderness/rigidity /rebound. : General: Yes no CVA tenderness Back/Spine/Pelvis: Back: no CVA tenderness Skin: General skin exam: normal color Other: Abrasion over forehead and left anterior Neuro: General: patient oriented x3, moves all extremities, no meningeal signs, no focal motor deficits and CN's II-XI intact bilaterally Cranial nerves: Yes Nystagmus not present Speech: normal speech Gait exam (Neuro): Normal gait present Extrem: General: normal to inspection and no clubbing, cyanosis or edema Psych: Mental Status: mental status grossly normal Affect: normal affect Attitude: cooperative Course Course Emergency Course: alcohol intoxication-- BAL of 254 mg/dL accidental fall- x-ray of the pelvis and chest did not show any acute findings. head injury with forehead abrasion with loss of consciousness-- CT of the head/ C-spine did not show any acute findings. elevated troponin of 0.044. EKG did not show any acute ST elevation. Will repeat troponin AFib with a controlled ventricular rate During his ER stay the patient has been easily arousable. No focal deficit noted. Neuro examination was unchanged. Repeat troponin was noted to be 0.039 which is less than his previous level of 0.044. Will admit the patient for neuro checks in view of his head injury and loss of consciousness. Vital Signs Vital signs: Vital Signs Temperature 36.1 C L 06/15/25 17:37 Pulse Rate 88 06/15/25 17:37 Respiratory Rate 16 06/15/25 17:37 Blood Pressure 92/63 L 06/15/25 17:37 Pulse Oximetry 94 06/15/25 17:37 Oxygen Delivery Room Air 06/15/25 17:37 Temperature 36.1 C L 06/15/25 17:37 Pulse Rate 85 06/15/25 21:16 Respiratory Rate 18 06/15/25 21:16 Blood Pressure 114/66 06/15/25 21:16 Pulse Oximetry 94 06/15/25 21:16 Oxygen Delivery Room Air 06/15/25 21:16 MDM - Fall MDM Narrative Medical decision making narrative: Alcohol intoxication head injury With loss of consciousness chest wall pain Differential Diagnosis Differential diagnosis: Likely syncope and concussion with loss of consciousness Medical Records Attestation: I reviewed the patient's medical records. Lab Data Attestation: I reviewed the patient's lab results. 06/15/25 18:23 06/15/25 18:23 Labs: Lab Results 06/15/25 06/15/25 Range/Units 18:23 21:04 WBC 6.3 (4.8-10.8) K/mm3 RBC 4.34 L (4.70-6.10) M/mm3 Hgb 13.9 (12.4-15.3) g/dL Hct 43.5 (37.0-46.0) % MCV 100.2 (78.0-102.0) fL MCH 32.0 H (27.0-31.0) pg MCHC 32.0 (32-36) g/dL RDW 14.0 (11.6-14.4) % Plt Count 192 (150-420) K/mm3 MPV 9.3 (8.7-11.0) fl Immature Gran % (Auto) 0.6 H (0.0-0.0) % Neut % (Auto) 60.8 (50.0-70.0) % Lymph % (Auto) 25.0 (18.0-42.0) % [place] % (Auto) 10.9 (2.0-11.0) % Eos % (Auto) 2.1 (1.0-6.0) % Baso % (Auto) 0.6 (0.0-1.0) % Lymph # (Auto) 1.58 (1.10-4.50) K/mm3 [place] # (Auto) 0.69 (0.10-0.90) K/mm3 Eos # (Auto) 0.13 (0.02-0.50) K/mm3 Baso # (Auto) 0.04 (0.00-0.10) K/mm3 Abs Immat Gran (auto) 0.04 H (0.00-0.00) K/mm3 Absolute Neuts (auto) 3.84 (1.70-7.20) K/mm3 Absolute Nucleated RBC 0.00 (0.00-0.00) K/mm3 Nucleated RBC % 0.0 (0-0.0) % PT 11.3 (9.50-12.1) Seconds INR 1.0 Sodium 140 (137-145) mmol/L Potassium 3.9 (3.4-5.0) mmol/L Chloride 108 H (98-107) mmol/L Carbon Dioxide 25 (22-30) mmol/L Anion Gap 7 (4-12) mmol/L BUN 27 H (9-20) mg/dL Creatinine 2.06 H (0.7-1.3) mg/dL Estim Creat Clear Calc 31 ml/min Estimated GFR 32 L (59 - ) Glucose 92 (65-110) mg/dL Calculated Osmolality 295 (285-295) mOsm/kg Lactic Acid 1.2 (0.4-2.0) mmol/L Calcium 8.6 (8.4-10.2) mg/dL Magnesium 1.8 (1.6-2.3) mg/dL Total Bilirubin 0.7 (0.2-1.3) mg/dL AST 41 (17-59) U/L ALT 23 (6-50) U/L Alkaline Phosphatase 53 (38-126) U/L Total Creatine Kinase 115 (55-170) U/L Troponin I 0.044 H* 0.039 H* (0.000-0.034) ng/mL NT-Pro-B Natriuret Pep 3240 H (19.9-100) pg/mL Total Protein 7.0 (6.3-8.2) g/dL Albumin 3.8 (3.5-5.1) g/dL Lipase 231 (23-300) U/L Ethyl Alcohol 254 (<10) mg/dL ECG Data EKG #1: ECG completion date: 06/15/25 ECG completion time: 18:22 Interpretation: atrial fibrillation with a controlled ventricular rate. Left axis deviation. Old anteroseptal infarction. No ST elevation. Nonspecific T-wave changes. Discharge Plan Discharge Clinical Impression: Acute head injury with loss of consciousness Qualifiers: Encounter type: initial encounter Qualified Code(s): S06.9X9A - Unspecified intracranial injury with loss of consciousness of unspecified duration, initial encounter Alcohol intoxication Qualifiers: Complication of substance-induced condition: uncomplicated Qualified Code(s): F 10.920 - Alcohol use, unspecified with intoxication, uncomplicated Patient Disposition: Acute Care Hospital [facility] Condition: Stable Patient Language: Khmer Prescriptions: No Action nifedipine 30 mg tablet extended release 24hr 30 mg PO DAILY atorvastatin 80 mg tablet 80 mg PO QPM torsemide 10 mg tablet 10 mg PO DAILY ezetimibe 10 mg tablet 10 mg PO DAILY duloxetine 30 mg capsule,delayed release(DR/EC) 30 mg PO DAILY fenofibric acid (choline) 45 mg capsule,delayed release(DR/EC) 45 mg PO DAILY Eliquis 5 mg Tablet 5 mg PO BID Patient Comments: pt gets eliquis samples from Dr. Anne Kendrick's office ([phone], ext [phone]). has been taking since 03/2023 per momo trazodone 50 mg Tablet 50 mg PO HS PRN (Reason: Insomnia) Qty: 1 0RF Patient Comments: 1-2 tablets at bedtime as needed. multivitamin with folic acid [Thera] 400 mcg Tablet 1 tablet PO QAM Qty: 1 0RF acetaminophen 325 mg Tablet 650 mg PO Q4H PRN (Reason: Mild Pain (1-3) Or Fever) Qty: 2 0RF levothyroxine 125 mcg tablet 137 mcg PO DAILY@0630 gabapentin 300 mg capsule 300 mg PO DAILY lisinopril 10 mg tablet 10 mg PO BID allopurinol 100 mg tablet 100 mg PO DAILY Patient Comments: 2 tablets per day to equal 200mg metoprolol tartrate 25 mg Tablet 50 mg PO Q12HR Follow-up/Referrals: Anne Kendrick MD [Primary Care Provider] -
--- NOTE | 2025-06-15 17:48 | ECG_ITS ---
Test Date: 2025-06-15 18:22:21 Measurements Intervals [place] Rate: 79 P: 0 WA: 0 QRS: -57 QRSD: 104 T: 83 QT: 410 QTc: 473 Interpretive Statements ATRIAL FIBRILLATION WITH ABERRANT CONDUCTION OR VENTRICULAR PREMATURE COMPLEXES LEFT ANTERIOR FASCICULAR BLOCK [QRS AXIS <= -45, QR IN I, RS IN II] MINIMAL VOLTAGE CRITERIA FOR LVH, CONSIDER NORMAL VARIANT [MEETS CRITERIA IN ONE OF: R(aVL), S(V1), R(V5), R(V5/V6)+S(V1)] ANTEROSEPTAL MYOCARDIAL INFARCTION , PROBABLY OLD [40+ ms Q WAVE IN V1-V4] Compared to ECG 03/06/2025 05:40:47 Ventricular premature complex(es) now present Aberrant conduction of supraventricular beat(s) now present Myocardial infarct finding still present Electronically Signed On 06-16-2025 14:18:41 CDT by Bebo Gutierrez M.D.
[2025-06-15 18:31] LABS: Hematocrit 43.5 % (37.0-46.0); Hemoglobin 13.9 g/dL (12.4-15.3); Immature Granulocyte Percent A 0.6 % (0.0-0.0); Lymphocytes Absolute Auto 1.58 K/mm3 (1.10-4.50); Mean Corpuscular HGB Conc 32.0 g/dL (32-36); Mean Corpuscular Hemoglobin 32.0 pg (27.0-31.0); Mean Corpuscular Volume 100.2 fL (78.0-102.0); Nucleated Red Blood Cells Absolute Auto 0.00 K/mm3 (0.00-0.00); Nucleated Red Blood Cells Perc 0.0 % (0-0.0); Platelet Count Result 192 K/mm3 (150-420); Red Blood Count 4.34 M/mm3 (4.70-6.10); White Blood Count 6.3 K/mm3 (4.8-10.8)
--- OUTSIDE RECORDS SUMMARY | 2025-06-15 18:35 | XMS_ITS | Clinical Summary ---
Author Organization [facility] Address [address] [place] [address] Care Team Providers Care Crochet Machine Operator Name Role Phone Emeka Garcia MD Unavailable [phone] Viv Childers MD Unavailable Kahlil Peres MD Primary Care Provider [phone] Melany Oseguera PA-C Unavailable + [phone] Allergies [...] Chronic systolic CHF (conges tive heart failure) ([facility]) 05/01/2025 Parotiditis 11/30/2024 NSTEMI (non-ST elevated myoc ardial infarction) ([facility]) 12/26/2023 Multiple fractures of ribs, bilateral, initial encounter for closed fracture 10/02/2023 Fall 10/02/2023 SOB (shortness of breath) on exertion 12/30/2022 Encounters Date Type Department Care Team Description 05/20/2025 2:45 PM CDT Office Visit [facility] [id number] [place] [address] Viv Childers MD Heart Problem 05/20/2025 1:48 PM CDT - 05/20/2025 11:59 PM CDT Hospital Encounter [facility] [address] [place] [address] Viv Childers MD Discharge Disposition: Home or Self Care (Routine Discharge) 05/20/2025 Travel 05/17/2025 Telephone [facility] [address] [place] [address] Viv Childers MD Appointment Reminder 05/13/2025 Orders Only [facility] [address] [place] [address] Viv Childers MD 05/01/2025 12:30 PM CDT Office Visit [facility] [address] [place] [place] [address] Melany Oseguera PA-C Follow Up 05/01/2025 12:15 PM CDT - 05/01/2025 11:59 PM CDT Hospital [facility] [place] [address] Melany Oseguera PA-C Discharge Disposition: Home or Self Care (Routine Discharge) 05/01/2025 Travel 04/26/2025 Orders Only [facility] [place] [address] Emeka Garcia MD 04/25/2025 [facility] [address] [place] [address] Eliza Mcmahon LPN Pre-visit Gap Closure from Last 3 Months Immunizations Immunization Administration Dates Next Due Tdap (Boostrix) 07/11/2024 Tdap (Generic) 06/03/2015 Social History Tobacco Use Types Packs/Day Years Used Date Smoking Tobacco: Never Smokeless Tobacco: Never Tobacco Cessation:Counseling Given: Not Answered Alcohol Use Standard Drinks/Week Comments Yes 16.7 (1 standard drink = 0.6 oz pure alcohol) [facility] [email or web address] Answer Date Recorded In the past 12 months has [facility] [employer], gas, oil, or water [employer] threatened to shut off services in your [...] place to sleep or slept in a correction (including now)? No 12/27/2023 Housing Stability Vital [...] time in the past 12 m [facility], were you homeless or living in a correction (including now)? Patient unable to answer 11/30/2024 Sex and Gender Information Value Date Recorded Sex Assigned at Male 12/04/2024 9:12 AM MIXING TUMBLER OPERATOR Legal Sex Male 5:48 PM MIXING TUMBLER OPERATOR Gender Identity Not on file Sexual Orientation Not on file Last Filed Vital Signs Vital Sign Reading Time Taken Comments Blood Pressure 153/88 05/20/2025 2:50 PM CDT Pulse 85 05/20/2025 2:44 PM CDT Temperature 36.5 C (97.7 F) 12/18/2024 8:01 AM MIXING TUMBLER OPERATOR Respiratory Rate 16 05/20/2025 2:44 PM CDT Oxygen Saturation 98% 05/20/2025 2:44 PM CDT Inhaled Oxygen Concentration - - Weight 76.2 kg (168 lb) 05/20/2025 2:44 PM CDT Height 177.8 cm (5' 10) 05/20/2025 2:44 PM CDT Body Mass Index 24.11 05/20/2025 2:44 PM CDT Plan of Treatment Upcoming Encounters Date Type Department Care Team (Late st Contact Info) Description 11/19/2025 1:00 PM MIXING TUMBLER OPERATOR Appointment [facility] [address] [place] [address] Viv Childers MD [address] [place] [address] 11/27/2025 11:30 AM MIXING TUMBLER OPERATOR Office Visit [facility] [place] [phone] Viv Childers MD [address] [place] [address] Health Maintenance Due Date Last Done Comments [...] upon discharge from hospital Lifestyle Vicky Moreira, marketing editor Procedure Name Priority Date/Time Associated Diagnosis Comments ECG 12-LEAD Routine 05/20/2025 1:58 PM CDT Non-ST elevated myocardial infarction (CMS/HCC HHS/HCC) ECG 12-LEAD Routine 05/01/2025 12:41 PM CDT Longstanding persistent atrial fibrillation (CMS/HCC HHS/HCC) LIPID PANEL Routine 12/27/2023 7:08 AM MIXING TUMBLER OPERATOR from Last 3 Months or Most Recently Relevant to Health Maintenance Results * ECG 12-Lead (05/20/2025 1:58 PM CDT) Only the most recent of2 resultswithin the time period is included. 05/20/2025 1:58 PM CDT Narrative [facility] - 05/20/2025 6:[address] [place] [address] Test Date: 2025-05-20 Pat Name: [facility] Department: 3 Room: Gender: Male Automatic Machine Attendant: : 1955 Requested By: VIV CHILDERS Order Number: [id number] Reading MD: Viv Childers Measurements Intervals [place] Rate: 86 P: 0 AL: 0 QRS: [...] Procedure Note Viv Childers MD - 05/20/[address] [place] [address] Test Date: 2025-05-20 Pat Name: [facility] Department: 3 Room: Gender: Male Automatic Machine Attendant: : 1955 Requested By: VIV CHILDERS Order Number: [id number] Reading MD: Viv Childers Measurements Intervals [place] Rate: 86 P: 0 AL: 0 QRS: [...] ECG ORDERABLES Final Result Performing Organization Address [facility]/ZIP Co de Phone Number [facility] * LIPID PANEL (12/27/2023 7:08 AM MIXING TUMBLER OPERATOR) CHOLESTEROL 131 MG/DL 12/27/2023 8:36 AM [facility] Comment:DESIRABLE: <200 TRIGLYCERIDES 124 MG/DL 12/27/2023 8:36 AM [facility] Comment:<150 NORMAL HDL 54 >39 MG/DL 12/27/2023 8:36 AM [facility] LDL (CALCULATED) 52 MG/DL 12/27/19 8:36 AM [facility] Comment:<100 OPTIMAL VLDL CALCULATION 25 MG/DL 12/27/19 8:36 AM [facility] Comment:REFERENCE RANGE NOT ESTABLISHED CHOL/HDL RATIO 2.4 12/27/2023 8:36 AM [facility] Comment:REFERENCE RANGE NOT ESTABLISHED LDL/HDL 1.0 12/27/2023 8:36 AM [facility] Comment:REFERENCE RANGE NOT ESTABLISHED NON HDL CHOLESTEROL 77 MG/DL 12/27/2023 8:36 AM [facility] Comment:REFERENCE RANGE NOT ESTABLISHED 12/27/2023 7:08 AM MIXING TUMBLER OPERATOR Arline Calixto MD LABORATORY Final Res ult Performing Organization Address City/[facility]/ZIP Co de Phone Number [facility] [address] [place] [address], [phone] from Last 3 Months or Most Recently Relevant to Health Maintenance Insurance MEDICARE Advance Directives Documents on File Type Date Recorded Patient Bulk Filler Expl anation Advance Directives and Living Will [...] 4:13 PM 12/31/2022 7:27 PM Care Teams Crochet Machine Operator Relationship Specialty Start Date End Date Kahlil Peres MD [address] [place] [address] PCP - General FAMILY PRACTICE 11/30/24 Emeka Garcia MD [address] [place] [phone] Consulting Physician CLINICAL CARDIAC ELECTROPHYSIOLOGY 03/30/23 Viv Childers MD [address] [place] [phone] Consulting Physician CARDIOVASCULAR DISEASE 05/11/24 Melany Oseguera PA-C [address] [place] [address] Referring Physician PHYSICIAN SHOW OPERATIONS SUPERVISOR 04/01/25
--- OUTSIDE RECORDS SUMMARY | 2025-06-15 18:35 | XMS_ITS | Encounter Summary ---
Author Organization [facility] Address [address] [place] [address] Care Team Providers Care Lawn Care Professional Name Role Phone Emeka Garcia MD Unavailable [phone] New Referring, Provider Primary Care Provider Un available Anne Kendrick MD Primary Care Provider [phone] Viv Seo MD Unavailable Kahlil Peres MD Primary Care Provider [phone] Melany Oseguera PA-C Unavailable [phone] Encounter Details Date Type Department Care Team (Latest Contact Info) Description 10/02/2023 Hospital Encounter Tyler Bennett MD [address] [phone] Social History Tobacco Use Types Packs/Day Years Used Date Smoking Tobacco: Never Smokeless Tobacco: Never Alcohol Use Standard Drinks/Week Comments Yes 16.7 (1 standard drink = 0.6 oz pure alcohol) [place] [employer] Answer Date Recorded In the past 12 months has [employer], gas, oil, or water company threatened to [...] any time in the past 12 m [facility], were you homeless or living in a nursing home (including now)? Patient unable to answer 11/30/2024 Sex and Gender Information Value Date Recorded Sex Assigned at Male 12/04/2024 9:12 AM VISUAL EFFECTS EDITOR Legal Sex Male 5:48 PM VISUAL EFFECTS EDITOR Gender Identity Not on file Sexual Orientation [...] No Risk Indicated 11/30/2024 6:00 PM Reyes Gumsan RN Active * [place] Suicide Severity Rating Scale (Screener/Recent Self-Report) Question [...] or making decisions? Yes 11/30/2024 6:47 PM VISUAL EFFECTS EDITOR Ella Burch RN Active * Because of a physical, mental, or emotional condition, do you have serious difficulty concentrating, remembering, or making decisions? Answer Entry Date Author Status No 10/02/2023 2:18 PM VISUAL EFFECTS EDITOR Raul Adler RN Active documented in this encounter Plan of Treatment Upcoming Encounters Date Type Department Care Team (Late st Contact Info) Description 11/19/2025 1:00 PM VISUAL EFFECTS EDITOR Appointment [facility] [address] [facility] [place] [address] Viv Seo MD [address] [place] [address] [phone] 11/27/2025 11:30 AM VISUAL EFFECTS EDITOR Office Visit [facility] [address] [place] [address] Viv Seo MD [address] [place] [address] [phone] documented as of this encounter Goals Goal [...] Rule Out 12/19/2023 12/19/2023 12/19/2023 6:05 AM VISUAL EFFECTS EDITOR COVID-19 Rule Out 12/26/2023 12/26/2023 12/26/2023 5:39 PM VISUAL EFFECTS EDITOR documented as of this encounter Care Teams Lawn Care Professional Relationship Specialty Start Date End Date New Referring, Provider PCP - General UNKNOWN PHYSICIAN SPECIALTY 10/02/23 10/04/23 Anne Kendrick MD [address] [facility] [place] [address] PCP - General FAMILY PRACTICE 10/05/23 11/29/24 Kahlil Peres MD [address] [place] [address] [phone] PCP - General FAMILY PRACTICE 11/30/24 Emeka Garcia MD [address] [place] [phone] Consulting Physician CLINICAL CARDIAC ELECTROPHYSIOLOGY 03/30/23 Viv Seo MD [address] [place] [address] Consulting Physician CARDIOVASCULAR DISEASE 05/11/24 Melany Oseguera PA-C [address] [place], [place] [address] Referring Physician PHYSICIAN DATA PROCESSING MANAGER 04/01/25 documented as of this encounter
--- OUTSIDE RECORDS SUMMARY | 2025-06-15 18:35 | XMS_ITS | Encounter Summary ---
Author Organization [facility] Address [address] [place] [address] Care Team Providers Care Loin Trimmer Name Role Phone Emeka Garcia MD Unavailable [phone] Anne Kendrick MD Primary Care Provider [phone] Viv Seo MD Unavailable Kahlil Peres MD Primary Care Provider [phone] Melany Oseguera PA-C Unavailable + [phone] Encounter Details Date Type Department Care Team (Late st Contact Info) Description 01/02/2024 Hospital Follow-up Call [facility] [address] [place] [address] Dipika Moseley RN Social History Tobacco Use Types Packs/Day Years Used Date Smoking Tobacco: Never Smokeless Tobacco: Never Alcohol Use Standard Drinks/Week Comments Yes 0 (1 standard drink = 0.6 oz pur e alcohol) [facility] Utilities Answer Date Recorded In [...] place to sleep or slept in a penitentiary (including now)? No 12/27/2023 Sex and Gender Information Value Date Recorded Sex Assigned at Male 12/04/2024 9:12 AM [employer] MANAGER Legal Sex Male 5:48 PM [employer]OP MANAGER Gender Identity Not on file Sexual Orientation [...] Assessment Author Status Yes 12/26/2023 9:15 PM [employer]UME SHOP MANAGER Em Miranda RN Active * Do you have difficulty dressing or bathing? Answer Date of Assessment Author Status No 12/26/2023 9:15 PM Em Spann RN Active * Because of a physical, mental, or emotional condition, do you have difficulty doing errands alone such as visiting a doctor's office or shopping? Answer Date of Assessment Author Status Yes 12/26/2023 9:15 PM CO[employer]UME SHOP MANAGER Em Miranda RN Active documented as of [...] st Contact Info) Description 11/19/2025 1:00 PM COSTUME SHOP MANAGER Appointment [facility] [address] [place] [address] Vvi Seo MD [address] [place], [place] [phone] 11/27/2025 11:30 AM COSTUME SHOP MANAGER [facility] [address] [place] [phone] Viv Seo MD [address] [place], [place] [phone] documented as of this encounter Goals Goal Patient Goal Type Associated Problems Recent Progress Patient-Stated? Author Patient will return to prior living situation and remain independent in ADLs upon discharge from hospital 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 RN documented as of this encounter Visit Diagnoses Not on filedocumented in this encounter Care Teams Loin Trimmer Relationship Specialty Start Date End Date Anne Kendrick MD [address] [place] [phone] PCP - General FAMILY PRACTICE 10/05/23 11/29/24 Kahlil Peres MD [address] [place] [address] PCP - General FAMILY PRACTICE 11/30/24 Emeka Garcia MD [address] [place] [id number] Consulting Physician CLINICAL CARDIAC ELECTROPHYSIOLOGY 03/30/23 Viv Seo MD [address] [place], [place] [phone] Consulting Physician CARDIOVASCULAR DISEASE 05/11/24 Melany Oseguera PA-C [address] [place], [place] [address] Referring Physician PHYSICIAN WEARING APPAREL ASSEMBLER 04/01/25 documented as of this encounter
[2025-06-15 18:40] LABS: Alanine Aminotransferase 23 U/L (6-50); Albumin Level 3.8 g/dL (3.5-5.1); Alkaline Phosphatase 53 U/L (38-126); Anion Gap 7 mmol/L (4-12); Aspartate Amino Transferase 41 U/L (17-59); Bilirubin,Total 0.7 mg/dL (0.2-1.3); Blood Urea Nitrogen 27 mg/dL (9-20); Calcium 8.6 mg/dL (8.4-10.2); Carbon Dioxide 25 mmol/L (22-30); Chloride 108 mmol/L (98-107); Creatine Kinase 115 U/L (55-170); Estimated CRCL calculation 31 ml/min; Estimated Glomerular Filt Rate 32; Glucose 92 mg/dL (65-110); Lipase 231 U/L (23-300); Magnesium 1.8 mg/dL (1.6-2.3); Osmolality Calculated 295 mOsm/kg (285-295); Potassium 3.9 mmol/L (3.4-5.0); Sodium 140 mmol/L (137-145); Total Protein 7.0 g/dL (6.3-8.2)
[2025-06-15 18:41] LABS: INR 1.0; Prothrombin Time 11.3 Seconds (9.50-12.1)
[2025-06-15 18:51] LABS: NT Pro B Type Natriuretic Pept 3240 pg/mL (19.9-100)
[2025-06-15 18:53] LABS: Troponin I 0.044 ng/mL (0.000-0.034)
--- NOTE | 2025-06-15 18:55 | PC.NURSE ---
ASSUMED CARE. REPORT RECEVIED FROM [facility].
--- NOTE | 2025-06-15 18:56 | PC.NURSE ---
report to miguel swann
--- NOTE | 2025-06-15 18:57 | PC.NURSE ---
meal provided per pt request.
--- NOTE | 2025-06-15 19:10 | PC.NURSE ---
PATIENT CURRENTLY RESTING ON STRETCHER. DENIES ANY NEEDS. PATIENT IS AWARE THAT BLOOD WORK WILL BE OBTAINED AT 2100. CALL LIGHT IN REACH
--- NOTE | 2025-06-15 20:00 | PC.NURSE ---
RESTING QUIETLY ON STRETCHER. NO NEEDS VOICED. CALL LIGHT IN REACH.
--- NOTE | 2025-06-15 21:00 | ECG_ITS ---
Test Date: 2025-06-15 21:57:56 Measurements Intervals [place] Rate: 79 P: 0 NC: 0 QRS: -46 QRSD: 101 T: 90 QT: 396 QTc: 455 Interpretive Statements ATRIAL FIBRILLATION LEFT ANTERIOR FASCICULAR BLOCK [QRS AXIS <= -45, QR IN I, RS IN II] POSSIBLE INFERIOR MYOCARDIAL INFARCTION , PROBABLY OLD [30 ms Q WAVE IN II/aVF] ANTEROSEPTAL MYOCARDIAL INFARCTION , OF INDETERMINATE AGE [40+ ms Q WAVE IN V1-V4] Compared to ECG 06/15/2025 18:22:21 Ventricular premature complex(es) no longer present Aberrant conduction of supraventricular beat(s) no longer present Myocardial infarct finding still present Electronically Signed On 06-16-2025 17:54:06 CDT by Bebo Gutierrez M.D.
--- NOTE | 2025-06-15 21:00 | PC.NURSE ---
PATIENT RESTING ON STRETCER. LAB AT THE BEDSIDE. CALL LIGHT IN REACH
[2025-06-15 21:38] LABS: Troponin I 0.039 ng/mL (0.000-0.034)
--- NOTE | 2025-06-15 21:47 | PC.NURSE ---
SPOKE WITH CONSUELO RN ON MED SURG. PATIENT WILL BE GOING TO ROOM 207 WITH TELEMETRY
[2025-06-15] MEDS: diazePAM (*CRX) 5 MG TABLET PO (22:04)
[2025-06-15] MEDS: THIAMINE HCL 200 MG/2 ML VIAL 100 MG IV PUSH (22:04)
--- NOTE | 2025-06-15 22:39 | ADMGEN ---
This patient, Claudio Devries, was admitted to 2nd Floor Room 207-1. Patient/family oriented to hospital policies and general routines including ID bracelet, bed and alarms, visiting hours, pain management, procedures, bathroom and other care routines, personal items, smoking policy, room service/diet, and visiting hours. Information on how to activate the Rapid Response Team has been discussed. Patient/Family are encouraged to report perceived risks to care and to ask questions if they do not understand what they are told or what they should do.
[2025-06-15] MEDS: FOLIC ACID 1 MG TABLET PO (23:15)
[2025-06-15] MEDS: ATORVASTATIN 40 MG TABLET 80 MG PO (23:15)
[2025-06-15] MEDS: APIXABAN 2.5 MG TABLET 5 MG BY MOUTH (23:16)
[2025-06-15] MEDS: METOPROLOL TARTRATE 50 MG TAB PO (23:16)
[2025-06-16] VITALS: BP 131/68; PULSE 74; RESP 16; TEMP 37; O2SAT 98
[2025-06-16 03:28] LABS: Add Urine Microscopic? YES; Appearance Urine Clear (Clear); Glucose Urine UA Negative (Negative); Leukocyte Esterase Ur Negative LEU/UL (Negative); Nitrate Urine Negative (Negative); Specific Grav Ur 1.025 (1.010-1.020)
[2025-06-16 04:00] VITALS: PULSE 78
[2025-06-16] MEDS: LEVOTHYROXINE SODIUM 112 MCG TABLET PO (05:50)
[2025-06-16] MEDS: LEVOTHYROXINE SODIUM 25 MCG TABLET PO (05:50)
[2025-06-16 08:00] VITALS: BP 141/84; PULSE 85; PULSE 93; RESP 17; TEMP 37.2; O2SAT 96
[2025-06-16] MEDS: APIXABAN 2.5 MG TABLET 5 MG BY MOUTH (08:48)
[2025-06-16] MEDS: MULTIVITAMINS THERAPEUTIC TAB (*BKC) 1 TABLET PO (08:48)
[2025-06-16] MEDS: FOLIC ACID 1 MG TABLET PO (08:48)
[2025-06-16] MEDS: THIAMINE HCL 100 MG TABLET PO (08:48)
[2025-06-16] MEDS: EZETIMIBE 10 MG TABLET PO (08:48)
[2025-06-16 08:49] VITALS: PULSE 93
[2025-06-16] MEDS: GABAPENTIN 300 MG CAPSULE PO (08:49)
[2025-06-16] MEDS: TORSEMIDE 10 MG TABLET PO (08:49)
[2025-06-16] MEDS: METOPROLOL TARTRATE 50 MG TAB PO (08:49)
--- NOTE | 2025-06-16 09:20 | P.SS_ITS ---
Same Day Admit/Disch: HPI History of Present Illness Chief complaint: etoh, fall Narrative: Claudio Devries is a 70 [place] [address] Emergency Room Visit Note Signed with Addenda Patient: Claudio Devries MR#: [id number] : 1955 Acct:[id number] Age: 70 ADM Date: 06/15/25 Loc: [address]- Attending Dr: Timothy Montoya M.D. cc: Sree Lazcano MD; Anne Kendrick MD~ ADDENDUM repeat EKG revealed AFib with a ventricular rate of 79. Left axis deviation. Old anteroseptal infarction no ST elevation. This EKG is unchanged from an EKG which was done 3 hours ago. Patient received thiamine 100 mg, folic acid 1 mg and diazepam 5 mg view of his alcoholism. Addendum Documented By: Sree Lazcano MD 06/15/252158 Addendum Signed By: <Electronically signed by Sree Lazcano MD> 06/15/252158 HPI - Fall General Chief Complaint: Fall Stated Complaint: etoh, fall Source: patient and EMS Mode of arrival: ambulatory Limitations: no limitations History of Present Illness HPI Narrative: 70-year-old male history of alcoholism, hypertension, CAD status post stents with negative stress test 2 years ago, AFib, HFpEF, , CKD with a baseline creatinine of 1.8, hypothyroidism, dyslipidemia, ascending aortic aneurysm presents to the ED with -- alcohol intoxication -- multiple falls with abrasion of his forehead, left arm, -- loss of consciousness for an unknown period of time -- right lower chest wall pain on presentation the patient is hemodynamically stable.. Stable oxygenation. complaint: fall [facility] Past Medical History Medical History (Updated 06/16/25 @ 10:24 by Hali Monroe NP) Cystitis Tremor of both hands Hypothyroidism CAD (coronary artery disease) Ascending aorta dilatation Myocardial infarction Hyperlipidemia Hypertension Alcoholism A-fib Closed rib fracture Family History Family History (Updated 06/15/25 @ 22:42 by Alondra Mcqueen RN) Father Lung cancer Social History Social History Smoking status: Never smoker Second hand tobacco smoke exposure: No Alcohol intake: current Drinks per week: 12 Substance use: never Substance use type: does not use Do You Feel Safe in your Home?: Yes Lack of Transportation: No Lack of Food: Never True Current Housing: I Have Housing Concerned About Future Housing: No Difficulty Paying Gas/Electric Bills: No Difficulty Paying for Meds: No Currently Unemployed: No Education: High School Diploma/GED Difficulty w/ Childcare or Family Care: No Spiritual care concerns: No Same Day Admit/Disch: Med Pre-admit Medications Home Medications ?Medication ?Instructions ?Recorded ?Confirmed ?Type atorvastatin 80 mg tablet 80 mg PO QPM 07/01/23 06/15/25 History duloxetine 30 mg capsule,delayed 30 mg PO DAILY 07/01/23 06/15/25 History release ezetimibe 10 mg tablet 10 mg PO DAILY 07/01/23 06/15/25 History fenofibric acid (choline) 45 mg 45 mg PO DAILY 07/01/23 06/15/25 History capsule,delayed release nifedipine 30 mg tablet,extended 30 mg PO DAILY 07/01/23 06/15/25 History release 24 hr torsemide 10 mg tablet 10 mg PO DAILY 07/01/23 06/15/25 History apixaban 5 mg tablet (Eliquis) 5 mg PO BID 10/25/24 06/15/25 History multivitamin with folic acid 400 1 tablet PO QAM #1 tablet 10/27/24 06/15/25 Rx mcg tablet (Thera) trazodone 50 mg tablet 50 mg PO HS PRN Insomnia #1 tablet 10/27/24 06/15/25 Rx acetaminophen 325 mg tablet 650 mg (2 x 325 mg) PO Q4H PRN 11/09/24 06/15/25 Rx Mild Pain (1-3) Or Fever #2 tabs allopurinol 100 mg tablet 100 mg PO DAILY 03/06/25 06/15/25 History gabapentin 300 mg capsule 300 mg PO DAILY 03/06/25 06/15/25 History levothyroxine 125 mcg tablet 137 mcg PO DAILY@0630 03/06/25 06/15/25 History lisinopril 10 mg tablet 10 mg PO BID 03/06/25 06/15/25 History metoprolol tartrate 25 mg tablet 50 mg PO Q12HR 03/06/25 06/15/25 History nitrofurantoin 100 mg PO Q12H 5 days #10 caps 06/16/25 Rx monohydrate/macrocrystals 100 mg capsule (Macrobid) Review of Systems Review of Systems bruising all over his body in different stages of healing. All systems reviewed & are unremarkable except as noted in HPI and below Exam Const: General: cooperative, comfortable and no acute distress HENMT: Head: normal to inspection Face and sinus: normal facial exam Mouth: Yes Normal oral and palatal mucosa present and Yes lip normal Eyes: General: appearance normal, both eyes and all related structures Pupils: Equal, round and reactive pupils present Neck: Neck: normal visual inspection Chest: Chest palpation & inspection: normal inspection of the chest and normal palpation of entire chest wall Resp: Effort & Inspection: normal respiratory effort and able to speak in complete sentences Auscultation: clear to auscultation bilaterally Cardio: Jugular venous distension: no JVD GI: Inspection: normal to inspection Auscultation: normal bowel sounds Back/Spine/Pelvis: Back: no CVA tenderness Skin: General skin exam: normal color Neuro: General: oriented to person, oriented to place, oriented to time and patient oriented x3 Extrem: General: normal to inspection and full ROM Right lower extremity: normal to inspection and full ROM Psych: Appearance: grossly normal and well thad DS: Data Data Completed and Pending Labs on day of discharge: Labs from last 24 hours 06/15/25 06/15/25 21:04 18:23 WBC 6.3 RBC 4.34 L Hgb 13.9 Hct 43.5 MCV 100.2 MCH 32.0 H MCHC 32.0 RDW 14.0 Plt Count 192 MPV 9.3 Immature Gran % (Auto) 0.6 H Neut % (Auto) 60.8 Lymph % (Auto) 25.0 [place] % (Auto) 10.9 Eos % (Auto) 2.1 Baso % (Auto) 0.6 Lymph # (Auto) 1.58 [place] # (Auto) 0.69 Eos # (Auto) 0.13 Baso # (Auto) 0.04 Abs Immat Gran (auto) 0.04 H Absolute Neuts (auto) 3.84 Absolute Nucleated RBC 0.00 Nucleated RBC % 0.0 PT 11.3 INR 1.0 Sodium 140 Potassium 3.9 Chloride 108 H Carbon Dioxide 25 Anion Gap 7 BUN 27 H Creatinine 2.06 H Estim Creat Clear Calc 31 Estimated GFR 32 L Glucose 92 Calculated Osmolality 295 Lactic Acid 1.2 Calcium 8.6 Magnesium 1.8 Total Bilirubin 0.7 AST 41 ALT 23 Alkaline Phosphatase 53 Total Creatine Kinase 115 Troponin I 0.039 H* 0.044 H* NT-Pro-B Natriuret Pep 3240 H Total Protein 7.0 Albumin 3.8 Lipase 231 Urine Color Yellow Urine Appearance Clear Urine pH 5.5 Ur Specific [place] 1.025 H Urine Protein 3+ H Urine Glucose (UA) Negative Urine Ketones Trace H Ur Blood (Man) Trace-intact H Urine Nitrate Negative Urine Bilirubin Negative Urine Urobilinogen 0.2 Leukocyte Esterase Rfl Negative Urine RBC 0-2 Hyaline Casts 50+ H Urine Mucus Heavy H Ethyl Alcohol 254 DS: Summary Hospital Course Reason for hospitalization: Fall, Intoxication , Syncope, Cystitis Hospital Course: This is a 70 year old male who was admitted to the hospital due to intoxication and having a s loss of consciousness. Patient is alert and orientated and up am bulating. Patient is states he has not drank in a while and he drank a 40 ounce of this liquor according to patient is potent and since he has not drank lately he was drunk. Patient states that he had the fall that he does not remember. We kept him overnight to monitor neuro and ensure safety. Patient also may habe a uti/cystitis in which I have sent him home with macrobid. Review of labs I discu ssed with patient his BNP/ CHF and we discussed about his lasix pt informed me he was taken off the medication . He will discharge home and follow up with his pcp. Time Spent with Patient Time attestation: Total time spent providing and/or coordinating discharge services: DS: Admitting Diagnosis Discharge Date 06/16/2025 Admitting Diagnosis Cystitis , Alcohol intoxication , syncope, fall DS: Discharge Diagnosis Discharge Diagnosis (1) Alcohol intoxication: Qualifiers: Complication of substance-induced condition: uncomplicated Qualified Code(s): F10.920 - Alcohol use, unspecified with intoxication, uncomplicated Code(s): F10.929 - Alcohol use, unspecified with intoxication, unspecified Status: Acute Assessment and Plan: stable resolved (2) Acute head injury with loss of consciousness: Qualifiers: Encounter type: initial encounter Qualified Code(s): S06.9X9A - Unspecified intracranial injury with loss of consciousness of unspecified duration, initial encounter Code(s): S06.9X9A - Unspecified intracranial injury with loss of consciousness of unspecified duration, initial encounter Status: Acute Assessment and Plan: Neuro symptoms have resolved (3) Unsteady gait: Code(s): R26.81 - Unsteadiness on feet Status: Acute Assessment and Plan: able to ambulate without difficulteis (4) Cystitis: Code(s): N30.90 - Cystitis, unspecified without hematuria Status: Acute Assessment and Plan: sent home with macrobid Plan pt needs to discuss with his pcp regarding chf possible being on some lasix Discharge Plan Discharge Attending physician on discharge: Timothy Montoya Discharging Clinician: Hali Monroe Anticipated Discharge Date/Time: 06/16/25 09:24 Patient Disposition: Home Activity: may shower and follow weight bearing status Diet: as tolerated and regular Wound Care Instructions: follow printed instructions Discharge Instructions: Call and schedule appointment with your primary care provider . you need to discuss Congestive heart failure and elevated BNP. Patient Instructions: Antibiotic Form, Apixaban (By mouth), Alcohol Intoxication (DC), Abuse of Alcohol (DC), Acute Nausea and Vomiting (DC), Fall Prevention (DC), Safe Use of Anticoagulants (DC) Patient Language: Macanese Stand Alone Forms: General Discharge Information Follow-up/Referrals: Anne Kendrick MD [Primary Care Provider] - (Call and schedule appointment ) Discharge Medications: New nitrofurantoin monohyd/m-cryst [Macrobid] 100 mg capsule 100 mg PO Q12H 5 Days Qty: 10 0RF Rx Instructions: must administer with a meal/food Continued nifedipine 30 mg tablet extended release 24hr 30 mg PO DAILY atorvastatin 80 mg tablet 80 mg PO QPM torsemide 10 mg tablet 10 mg PO DAILY ezetimibe 10 mg tablet 10 mg PO DAILY duloxetine 30 mg capsule,delayed release(DR/EC) 30 mg PO DAILY fenofibric acid (choline) 45 mg capsule,delayed release(DR/EC) 45 mg PO DAILY Eliquis 5 mg Tablet 5 mg PO BID Patient Comments: pt gets eliquis samples from Dr. Anne Kendrick's office ([phone], ext [phone]). has been taking since 03/2023 per momo trazodone 50 mg Tablet 50 mg PO HS PRN (Reason: Insomnia) Qty: 1 0RF Patient Comments: 1-2 tablets at bedtime as needed. multivitamin with folic acid [Thera] 400 mcg Tablet 1 tablet PO QAM Qty: 1 0RF acetaminophen 325 mg Tablet 650 mg PO Q4H PRN (Reason: Mild Pain (1-3) Or Fever) Qty: 2 0RF levothyroxine 125 mcg tablet 137 mcg PO DAILY@0630 gabapentin 300 mg capsule 300 mg PO DAILY lisinopril 10 mg tablet 10 mg PO BID allopurinol 100 mg tablet 100 mg PO DAILY Patient Comments: 2 tablets per day to equal 200mg metoprolol tartrate 25 mg Tablet 50 mg PO Q12HR Date of admission: 06/15/25 21:54 Primary Care Provider: Anne Kendrick Admitting Provider: Timothy Montoya Attending physician on admission: Timothy Montoya Condition: Stable
--- NOTE | 2025-06-16 10:30 | PC.NURSE ---
Discharge instructions reviewed with patient. All questions answered. Pt escorted via wheelchair to ED waiting room where he requested to wait for his ride.
--- NOTE | 2025-06-17 10:55 | PC.NURSE ---
Discharge Call back made, No set up to leave call back number.
--- NOTE | 2025-06-21 11:30 | PC.NURSE ---
Spoke with Claudio who states, I got really good care there and I know I messed up because I was drinking and thats why I fell, but the care I got there was really good. I would recommend coming there to anybody. He also stated, he had no questions about side effects of medications and understood all instructions before he left.
== END 2025-06-16 10:45 | disposition home or self-care (01) ==
LOC: CHSED 21:52 → CHS2ND 21:59
PROVIDERS: Admitting Provider Internal Medicine; Emergency Provider Internal Medicine Critical Care Medicine; PCP Family Medicine; Visit Provider Internal Medicine
DX: S06.9X9A Unspecified intracranial injury with loss of consciousness of unspecified duration, initial encounter (principal); F10.920 Alcohol use, unspecified with intoxication, uncomplicated; Y90.8 Blood alcohol level of 240 mg/100 ml or more; R26.81 Unsteadiness on feet; W19.XXXA Unspecified fall, initial encounter; N30.90 Cystitis, unspecified without hematuria; I25.10 Atherosclerotic heart disease of native coronary artery without angina pectoris; I48.91 Unspecified atrial fibrillation; N18.9 Chronic kidney disease, unspecified; E03.9 Hypothyroidism, unspecified; I50.32 Chronic diastolic (congestive) heart failure; E78.5 Hyperlipidemia, unspecified; I13.0 Hypertensive heart and chronic kidney disease with heart failure and stage 1 through stage 4 chronic kidney disease, or unspecified chronic kidney disease; Z79.01 Long term (current) use of anticoagulants; I25.2 Old myocardial infarction
CPT/HCPCS: 36415; 70450; 71045; 72125; 72170; 80053; 81001; 82077; 82550; 83605; 83690; 83735; 83880; 84484; 85025; 85610; 93005; 96374; 99285; A9270; G0378; J3411

== ENCOUNTER 2025-07-30 07:11 | Observation (INO) | payer MEDICARE, SELFPAY ==
[2025-07-30] VITALS (16 sets, daily range): BP systolic 136–168; BP diastolic 80–102; PULSE 72–105; RESP 18–34; TEMP 36.4–36.8; O2SAT 94–96; BMI 25.0
--- NOTE | ~2025-07-30 | XR_ITS ---
EXAMINATION: XR chest 1V portable DATE: 07/30/2025 07:29 INDICATION: Shortness of breath TECHNIQUE: frontal view of the chest was obtained. COMPARISON: Chest radiograph dated 06/15/2025 FINDINGS: Unchanged elevation left hemidiaphragm with linear discoid atelectasis/scarring at the left lower lung zone. Right lung remains clear. No pulmonary edema, pleural effusion or pneumothorax. The cardiomediastinal silhouette is normal. Coronary artery stenting. Several old healed right-sided rib fractures. IMPRESSION: 1. Chronic atelectasis/scarring at the left lower lung zone with elevation the left hemidiaphragm. No acute cardiopulmonary disease. Reviewed, dictated and finalized at location A.
--- NOTE | 2025-07-30 07:14 | ECG_ITS ---
Test Date: 2025-07-30 07:26:17 Measurements Intervals [place] Rate: 109 P: 0 UT: 0 QRS: -23 QRSD: 98 T: -3 QT: 360 QTc: 486 Interpretive Statements ATRIAL FIBRILLATION WITH RAPID VENTRICULAR RESPONSE VOLTAGE CRITERIA FOR LVH [MEETS CRITERIA IN ONE OF: R(aVL), S(V1), R(V5), R(V5/V6)+S(V1)] PREVIOUS ANTERIOR INFARCTION ABNORMAL ECG Compared to ECG 06/15/2025 21:57:56 NO SIGNIFICANT CHANGEt Electronically Signed On 07-31-2025 16:34:19 CDT by Alexis Dumont M.D.
[2025-07-30 07:32] LABS: Hematocrit 41.4 % (37.0-46.0); Hemoglobin 13.5 g/dL (12.4-15.3); Immature Granulocyte Percent A 0.5 % (0.0-0.0); Lymphocytes Absolute Auto 0.93 K/mm3 (1.10-4.50); Mean Corpuscular HGB Conc 32.6 g/dL (32-36); Mean Corpuscular Hemoglobin 33.6 pg (27.0-31.0); Mean Corpuscular Volume 103.0 fL (78.0-102.0); Nucleated Red Blood Cells Absolute Auto 0.00 K/mm3 (0.00-0.00); Nucleated Red Blood Cells Perc 0.0 % (0-0.0); Platelet Count Result 196 K/mm3 (150-420); Red Blood Count 4.02 M/mm3 (4.70-6.10); White Blood Count 8.0 K/mm3 (4.8-10.8)
--- NOTE | 2025-07-30 07:42 | ED.SOB ---
HPI - SOB/Dyspnea General Chief Complaint: Shortness of Breath/Dyspnea Stated Complaint: SOB Time Seen by Provider: 07/30/25 07:14 Source: patient Mode of arrival: ambulatory Limitations: no limitations History of Present Illness HPI Narrative: 70-year-old with a history of atrial fibrillation, hypertension, anxiety disorder, alcoholism presents to ER with complaints of shortness of breath for last 3-4 days. Patient states that he woke up at 4:00 a.m. this morning feeling short of breath patient he denies having any chest pain. No history of fever or chills. Has occasional cough. Which is nonproductive MD elicited complaint: shortness of breath Pertinent past history: congestive heart failure Onset (ago): day(s) (4) Timing: constant Severity: moderate Exacerbating factors: lying flat Relieving factors: nothing Known history of: congestive heart failure Associated symptoms: denies other symptoms Related Data Home Medications ?Medication ?Instructions ?Recorded ?Confirmed ?Last Taken ?Type duloxetine 30 mg capsule,delayed 30 mg PO DAILY 07/01/23 07/30/25 03/05/25 20:38 History release apixaban 5 mg tablet (Eliquis) 5 mg PO BID 10/25/24 07/30/25 03/06/25 08:41 History metoprolol tartrate 25 mg tablet 50 mg PO Q12HR 03/06/25 07/30/25 03/06/25 08:35 History Allergies Allergy/AdvReac Type Severity Reaction Status Date / Time magnesium sulfate AdvReac Intermediate Flushing Verified 07/30/25 07:20 Review of Systems Review of Systems: All systems reviewed & are unremarkable except as noted in HPI and below Constitutional: Constitutional: Reports no additional constitutional complaints Eyes: Eyes: Reports no additional eye complaints ENT: Reports system reviewed and no additional complaints, except as documented Cardiovascular: Cardiovascular: Reports no additional cardiovascular complaints Respiratory: Respiratory: Reports as per HPI Gastrointestinal: Gastrointestinal: Reports no additional gastrointestinal complaints Musculoskeletal: Musculoskeletal: Reports no additional musculoskeletal complaints PMFSH Past Medical History Medical History (Updated 07/30/25 @ 08:25 by Familia Carcamo MD) Cystitis Tremor of both hands Hypothyroidism CAD (coronary artery disease) Ascending aorta dilatation Myocardial infarction Hyperlipidemia Hypertension Alcoholism A-fib Closed rib fracture Family History Family History (Updated 06/15/25 @ 22:42 by Alondra Mcqueen RN) Father Lung cancer Social History Social History Smoking status: Never smoker Second hand tobacco smoke exposure: No Alcohol intake: current Drinks per week: 12 Substance use: never Substance use type: does not use Do You Feel Safe in your Home?: Yes Lack of Transportation: No Lack of Food: Never True Current Housing: I Have Housing Concerned About Future Housing: No Difficulty Paying Gas/Electric Bills: No Difficulty Paying for Meds: No Currently Unemployed: No Education: High School Diploma/GED Difficulty w/ Childcare or Family Care: No Spiritual care concerns: No Exam Narrative: GENERAL: Well-appearing, well-nourished, and in no acute distress. anxious HEAD: Normocephalic, atraumatic. EYES: PERRLA and EOMI. ENT: Nares clear, no rhinorrhea or epistaxis. Mucous membranes moist. NECK: Supple. CHEST: Clear to auscultation. No respiratory distress. HEART: Regular rate and rhythm. No murmur heard. Normal peripheral pulses. ABDOMEN: Soft, nontender, nondistended, normal active bowel sounds. EXTREMITIES: Normal range of motion. No edema. SKIN: Warm, dry, no rash. NEURO: No focal deficits. Alert and oriented x3. PSYCH: Normal mood and affect. Course Course Emergency Course: i did review his lab qand Xray findings with pt and family , will give IV lasix 40 mg , admit for observation ,discussed with the Hospitalist agreed with a plan. Vital Signs Vital signs: Vital Signs Temperature 36.7 C 07/30/25 07:26 Pulse Rate 105 H 07/30/25 07:26 Respiratory Rate 22 H 07/30/25 07:26 Blood Pressure 154/89 H 07/30/25 07:26 Pulse Oximetry 96 07/30/25 07:26 Oxygen Delivery Room Air 07/30/25 07:26 Temperature 36.7 C 07/30/25 07:26 Pulse Rate 105 H 07/30/25 07:26 Respiratory Rate 22 H 07/30/25 07:26 Blood Pressure 154/89 H 07/30/25 07:26 Pulse Oximetry 96 07/30/25 07:26 Oxygen Delivery Room Air 07/30/25 07:26 MDM - SOB/Dyspnea Differential Diagnosis Differential diagnosis: Likely acute exacerbation of chronic obstructive airways disease, congestive heart failure, community acquired pneumonia and other (anxiety) Medical Records Attestation: I reviewed the patient's medical records. Lab Data Attestation: I reviewed the patient's lab results. 07/30/25 07:24 07/30/25 07:24 Labs: Lab Results 07/30/25 Range/Units 07:24 WBC 8.0 (4.8-10.8) K/mm3 RBC 4.02 L (4.70-6.10) M/mm3 Hgb 13.5 (12.4-15.3) g/dL Hct 41.4 (37.0-46.0) % MCV 103.0 H (78.0-102.0) fL MCH 33.6 H (27.0-31.0) pg MCHC 32.6 (32-36) g/dL RDW 14.1 (11.6-14.4) % Plt Count 196 (150-420) K/mm3 MPV 9.4 (8.7-11.0) fl Immature Gran % (Auto) 0.5 H (0.0-0.0) % Neut % (Auto) 77.1 H (50.0-70.0) % Lymph % (Auto) 11.6 L (18.0-42.0) % [place] % (Auto) 9.4 (2.0-11.0) % Eos % (Auto) 0.9 L (1.0-6.0) % Baso % (Auto) 0.5 (0.0-1.0) % Lymph # (Auto) 0.93 L (1.10-4.50) K/mm3 [place] # (Auto) 0.75 (0.10-0.90) K/mm3 Eos # (Auto) 0.07 (0.02-0.50) K/mm3 Baso # (Auto) 0.04 (0.00-0.10) K/mm3 Abs Immat Gran (auto) 0.04 H (0.00-0.00) K/mm3 Absolute Neuts (auto) 6.17 (1.70-7.20) K/mm3 Absolute Nucleated RBC 0.00 (0.00-0.00) K/mm3 Nucleated RBC % 0.0 (0-0.0) % Sodium 142 (137-145) mmol/L Potassium 4.8 (3.4-5.0) mmol/L Chloride 107 (98-107) mmol/L Carbon Dioxide 25 (22-30) mmol/L Anion Gap 10 (4-12) mmol/L BUN 25 H (9-20) mg/dL Creatinine 1.76 H (0.7-1.3) mg/dL Estim Creat Clear Calc Not Reportable Estimated GFR 38 L (59 - ) Glucose 168 H (65-110) mg/dL Calculated Osmolality 302 H (285-295) mOsm/kg Calcium 9.9 (8.4-10.2) mg/dL Total Bilirubin 1.9 H (0.2-1.3) mg/dL AST 38 (17-59) U/L ALT 25 (6-50) U/L Alkaline Phosphatase 65 (38-126) U/L Troponin I 0.032 (0.000-0.034) ng/mL NT-Pro-B Natriuret Pep 18674 H (19.9-100) pg/mL Total Protein 7.6 (6.3-8.2) g/dL Albumin 4.2 (3.5-5.1) g/dL TSH Pending ECG Data EKG #1: ECG completion date: 07/30/25 ECG completion time: 07:26 Prior ECG tracings: available for review EKG Interpretation: tachycardia (109), atrial fibrillation, no ectopy, normal QRS and NL axis Discharge Plan Discharge Clinical Impression: Atrial fibrillation with RVR CHF exacerbation Qualifiers: Heart failure type: combined systolic and diastolic Qualified Code(s): I50.43 - Acute on chronic combined systolic (congestive) and diastolic (congestive) heart failure Patient Disposition: Still a Patient Condition: Stable Patient Language: Beninese Prescriptions: No Action duloxetine 30 mg capsule,delayed release(DR/EC) 30 mg PO DAILY Eliquis 5 mg Tablet 5 mg PO BID Patient Comments: pt gets eliquis samples from Dr. Anne Kendrick's office ([phone], [phone]). has been taking since 03/2023 per momo trazodone 50 mg Tablet 50 mg PO HS PRN (Reason: Insomnia) Qty: 1 0RF Patient Comments: 1-2 tablets at bedtime as needed. multivitamin with folic acid [Thera] 400 mcg Tablet 1 tablet PO QAM Qty: 1 0RF metoprolol tartrate 25 mg Tablet 50 mg PO Q12HR Follow-up/Referrals: Anne Kendrick MD [Primary Care Provider, Family Practice] Time of Disposition: 08:25
[2025-07-30 07:59] LABS: Alanine Aminotransferase 25 U/L (6-50); Albumin Level 4.2 g/dL (3.5-5.1); Alkaline Phosphatase 65 U/L (38-126); Anion Gap 10 mmol/L (4-12); Aspartate Amino Transferase 38 U/L (17-59); Bilirubin,Total 1.9 mg/dL (0.2-1.3); Blood Urea Nitrogen 25 mg/dL (9-20); Calcium 9.9 mg/dL (8.4-10.2); Carbon Dioxide 25 mmol/L (22-30); Chloride 107 mmol/L (98-107); Estimated Glomerular Filt Rate 38; Glucose 168 mg/dL (65-110); Osmolality Calculated 302 mOsm/kg (285-295); Potassium 4.8 mmol/L (3.4-5.0); Sodium 142 mmol/L (137-145); Total Protein 7.6 g/dL (6.3-8.2)
[2025-07-30 08:11] LABS: NT Pro B Type Natriuretic Pept 11600 pg/mL (19.9-100); Troponin I 0.032 ng/mL (0.000-0.034)
--- OUTSIDE RECORDS SUMMARY | 2025-07-30 08:12 | XMS_ITS | Encounter Summary ---
Author Organization [facility] Address [address] [place] [address] Care Team Providers Care Esthetics Instructor Name Role Phone Emeka Garcia MD Unavailable [phone] Anne Kendrick MD Primary Care Provider [phone] Viv Seo MD Unavailable Kahlil Peres MD Primary Care Provider [phone] Melany Oseguera PA-C Unavailable + [phone] Encounter Details Date Type Department Care Team (Late st Contact Info) Description 01/02/2024 Hospital Follow-up Call [facility] [address] [place] [address] Dipika Moseley RN Social History Tobacco Use Types Packs/Day Years Used Date Smoking Tobacco: Never Smokeless Tobacco: Never Alcohol Use Standard Drinks/Week Comments Yes 0 (1 standard drink = 0.6 oz pur e alcohol) [facility] Utilities Answer Date Recorded In the past [...] place to sleep or slept in a prison (including now)? No 12/27/2023 Sex and Gender Information Value Date Recorded Sex Assigned at Male 12/04/2024 9:12 AM HIGH SPEED WARPER TENDER Legal Sex Male 5:48 PM HIGH SPEED WARPER TENDER Gender Identity Not on file Sexual Orientation [...] Assessment Author Status Yes 12/26/2023 9:15 PM HIGH SPEED WARPER TENDER Em Miranda RN Active * Do you have difficulty dressing or bathing? Answer Date of Assessment Author Status No 12/26/2023 9:15 PM Em Spann RN Active * Because of a physical, mental, or emotional condition, do you have difficulty doing errands alone such as visiting a doctor's office or shopping? Answer Date of Assessment Author Status Yes 12/26/2023 9:15 PM HIGH SPEED WARPER TENDER Em Miranda RN Active documented as of [...] st Contact Info) Description 11/19/2025 1:00 PM HIGH SPEED WARPER TENDER Appointment [facility] [address] [place] [address] Viv Seo MD [address] [place], [place] [phone] 11/27/2025 11:30 AM HIGH SPEED WARPER TENDER [facility] [address] [place] [phone] Viv Seo MD [address] [place], [place] [phone] documented as of this encounter Goals Goal Patient Goal Type Associated Problems Recent Progress Patient-Stated? Author Patient will return to prior living situation and remain independent in ADLs upon discharge from hospital 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 RN documented as of this encounter Visit Diagnoses Not on filedocumented in this encounter Care Teams Esthetics Instructor Relationship Specialty Start Date End Date Anne Kendrick MD [address] [place] [phone] PCP - General FAMILY PRACTICE 10/05/23 11/29/24 Kahlil Peres MD [address] [place] [address] PCP - General FAMILY PRACTICE 11/30/24 Emeka Garcia MD [address] [place] [address] Consulting Physician CLINICAL CARDIAC ELECTROPHYSIOLOGY 03/30/23 Viv Seo MD [address] [place], [place] [address] Consulting Physician CARDIOVASCULAR DISEASE 05/11/24 Melany Oseguera PA-C [address] [place], [place] [address] Referring Physician PHYSICIAN RENAL DIALYSIS RN 04/01/25 documented as of this encounter
--- OUTSIDE RECORDS SUMMARY | 2025-07-30 08:12 | XMS_ITS | Clinical Summary ---
Author Organization [facility] Address [address] [place] [address] Care Team Providers Care Proof Machine Operator Name Role Phone Emeka Garcia MD Unavailable [phone] Kain Childers MD Unavailable Kahlil Peres MD Primary Care Provider [phone] Melany Oseguera PA-C Unavailable [phone] Allergies [...] Chronic systolic CHF (conges tive heart failure) ([facility]) 05/01/2025 Parotiditis 11/30/2024 NSTEMI (non-ST elevated myoc ardial infarction) ([facility]) 12/26/2023 Multiple fractures of ribs, bilateral, initial encounter for closed fracture 10/02/2023 Fall 10/02/2023 SOB (shortness of breath) on exertion 12/30/2022 Encounters Date Type Department Care Team Description 05/20/2025 2:45 PM CDT Office Visit [facility] [place] [address] [place] [address] Kain Childers MD Heart Problem 05/20/2025 1:48 PM CDT - 05/20/2025 11:59 PM CDT Hospital [facility] [place] [address] Kain Childers MD Discharge Disposition: Home or Self Care (Routine Discharge) 05/20/2025 Travel 05/17/2025 Telephone [facility] [address] [place] [address] Kain Childers MD Appointment Reminder 05/13/2025 Orders Only [facility] [address] [place] [address] Kain Childers MD 05/01/2025 12:30 PM CDT Office Visit [facility] [place] [address] [place] [address] Melany Oseguera PA-C Follow Up 05/01/2025 12:15 PM CDT - 05/01/2025 11:59 PM CDT Hospital En[facility] [place] [address] Melany Oseguera PA-C Discharge Disposition: Home or Self Care (Routine Discharge) 05/01/2025 Travel from Last 3 Months Immunizations Immunization Administration Dates Next Due Tdap (Boostrix) 07/11/2024 Tdap (Generic) 06/03/2015 Social History Tobacco Use Types Packs/Day Years Used Date Smoking Tobacco: Never Smokeless Tobacco: Never Tobacco Cessation:Counseling Given: Not Answered Alcohol Use Standard Drinks/Week Comments Yes 16.7 (1 standard drink = 0.6 oz pure alcohol) [facility] Utilities Answer Date Recorded In the past 12 months has th e electric, gas, oil, or water company [...] any time in the past 12 m [facility], were you homeless or living in a nursing home (including now)? Patient unable to answer 11/30/2024 Sex and Gender Information Value Date Recorded Sex Assigned at Male 12/04/2024 9:12 AM OUTBOARD MOTOR ASSEMBLER Legal Sex Male 5:48 PM OUTBOARD MOTOR ASSEMBLER Gender Identity Not on file Sexual Orientation Not on file Last Filed Vital Signs Vital Sign Reading Time Taken Comments Blood Pressure 153/88 05/20/2025 2:50 PM CDT Pulse 85 05/20/2025 2:44 PM CDT Temperature 36.5 C (97.7 F) 12/18/2024 8:01 AM OUTBOARD MOTOR ASSEMBLER Respiratory Rate 16 05/20/2025 2:44 PM CDT Oxygen Saturation 98% 05/20/2025 2:44 PM CDT Inhaled Oxygen Concentration - - Weight 76.2 kg (168 lb) 05/20/2025 2:44 PM CDT Height 177.8 cm (5' 10) 05/20/2025 2:44 PM CDT Body Mass Index 24.11 05/20/2025 2:44 PM CDT Plan of Treatment Upcoming Encounters Date Type Department Care Team (Late st Contact Info) Description 11/19/2025 1:00 PM OUTBOARD MOTOR ASSEMBLER Appointment [facility] [address] [address] Kain Childers MD [address] [place] [address] 11/27/2025 11:30 AM OUTBOARD MOTOR ASSEMBLER Office Visit [facility] [address] [place] [phone] Kain Childers MD [address] [place] [address] Health Maintenance Due Date Last Done Comments Colorectal Cancer Screening Colonoscopy (10 Years) 1955 Hepatitis C 1973 Pneumococcal Vaccine: 50+ Years (1 of 2 - PCV) 1974 Zoster Vaccines (1 of 2) 2005 RSV Immunization or 60+ Years (1 - Risk 60-74 years 1-dose series) 2015 Annual Medicare Wellness Visit 2020 ASCVD LDL 12/27/2024 12/27/2023 COVID-19 Vaccine (1 - 2023-2 5 season) 2025 DTaP, Tdap and Td Vaccines ( 3 [...] upon discharge from hospital Lifestyle Vicky Moreira, beater head Procedure Name Priority Date/Time Associated Diagnosis Comments ECG 12-LEAD Routine 05/20/2025 1:58 PM CDT Non-ST elevated myocardial infarction (CMS/HCC HHS/HCC) ECG 12-LEAD Routine 05/01/2025 12:41 PM CDT Longstanding persistent atrial fibrillation (CMS/HCC HHS/HCC) LIPID PANEL Routine 12/27/2023 7:08 AM OUTBOARD MOTOR ASSEMBLER from Last 3 Months or Most Recently Relevant to Health Maintenance Results * ECG 12-Lead (05/20/2025 1:58 PM CDT) Only the most recent of2 resultswithin the time period is included. 05/20/2025 1:58 PM CDT Narrative [facility] - 05/20/2025 6:22 PM CDT [address] [place] [address] Test Date: 2025-05-20 Pat [facility] Department: 3 Room: Gender: Male Equal Opportunity Specialist: : 1955 Requested By: KAIN CHILDERS Order Number: [id number] Reading MD: Kain Childers Measurements Intervals [place] Rate: 86 P: 0 SC: 0 QRS: -50 QRSD: 113 T: 53 QT: 383 QTc: 458 Interpretive Statements ATRIAL FIBRILLATION WITH ABERRANT CONDUCTION OR VENTRICULAR PREMATURE COMPLEXES LEFT ANTERIOR FASCICULAR BLOCK [QRS AXIS <= -45, QR IN I, RS IN II] MODERATE VOLTAGE CRITERIA FOR LVH, CONSIDER NORMAL VARIANT [MEETS CRITERIA IN ONE OF: R(aVL), S(V1), R(V5), R(V5/V6)+S(V1)] MINIMAL ST DEPRESSION [0.025+ mV ST DEPRESSION] Procedure Note Kain Childers MD - 05/20/[address] [place] [address] Test Date: 2025-05-20 Pat Name: TERRI SALDIVAR Department: 3 Room: Gender: Male Equal Opportunity Specialist: : 1955 Requested By: KAIN CHILDERS Order Number: [id number] Reading MD: Kain Childers Measurements Intervals [place] Rate: 86 P: 0 SC: 0 QRS: -50 QRSD: 113 T: 53 QT: 383 QTc: 458 Interpretive Statements ATRIAL FIBRILLATION WITH ABERRANT CONDUCTION OR VENTRICULAR PREMATURE COMPLEXES LEFT ANTERIOR FASCICULAR BLOCK [QRS AXIS <= -45, QR IN I, RS IN II] MODERATE VOLTAGE CRITERIA FOR LVH, CONSIDER NORMAL VARIANT [MEETSCRITERIA IN ONE OF: R(aVL), S(V1), R(V5), R(V5/V6)+S(V1)] MINIMAL ST DEPRESSION [0.025+ mV ST DEPRESSION] us Kain Childers MD ECG ORDERABLES Final Result [facility] * LIPID PANEL (12/27/2023 7:08 AM OUTBOARD MOTOR ASSEMBLER) CHOLESTEROL 131 MG/DL 12/27/2023 8:[address] [facility] Comment:DESIRABLE: <200 TRIGLYCERIDES 124 MG/DL 12/27/2023 8:[address] [facility] Comment:<150 NORMAL HDL 54 >39 MG/DL 12/27/2023 8:[address] [facility] LDL (CALCULATED) 52 MG/DL 12/27/19 8:[address] [facility] Comment:<100 OPTIMAL VLDL CALCULATION 25 MG/DL 12/27/19 8:[address] [facility] Comment:REFERENCE RANGE NOT ESTABLISHED CHOL/HDL RATIO 2.4 12/27/2023 8:[address] [facility] Comment:REFERENCE RANGE NOT ESTABLISHED LDL/HDL 1.0 12/27/2023 8:[address] [facility] Comment:REFERENCE RANGE NOT ESTABLISHED NON HDL CHOLESTEROL 77 MG/DL 12/27/2023 8:[address] 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
--- OUTSIDE RECORDS SUMMARY | 2025-07-30 08:12 | XMS_ITS | Encounter Summary ---
Author Organization [facility] Address [address] [place] [address] Care Team Providers Care Order Entry Clerk Name Role Phone Emeka Garcia MD Unavailable [phone] New Referring, Provider Primary Care Provider Un available Anne Kendrick MD Primary Care Provider [phone] Viv Seo MD Unavailable Kahlil Peres MD Primary Care Provider [phone] Melayn Oseguera PA-C Unavailable + [phone] Encounter Details Date Type Department Care Team (Latest Contact Info) Description 10/02/2023 Hospital Encounter Tyler Bennett MD [address] [phone] Social History Tobacco Use Types Packs/Day Years Used Date Smoking Tobacco: Never Smokeless Tobacco: Never Alcohol Use Standard Drinks/Week Comments Yes 16.7 (1 standard drink = 0.6 oz pure alcohol) [facility] Utilities Answer Date Recorded In the past 12 months has e [employer], gas, oil, or water company threatened to [...] the past 12 m [facility], were you homeless or living in a half-way (including now)? Patient unable to answer 11/30/2024 Sex and Gender Information Value Date Recorded Sex Assigned at Male 12/04/2024 9:12 AM PANTS CLOSER Legal Sex Male 5:48 PM PANTS CLOSER Gender Identity Not on file Sexual Orientation [...] 6:00 PM Reyes Gusman RN Active * [place] Suicide Severity Rating Scale (Screener/Recent Self-Report) Question [...] or making decisions? Yes 11/30/2024 6:47 PM PANTS CLOSER Ella Burch RN Active * Because of a physical, mental, or emotional condition, do you have serious difficulty concentrating, remembering, or making decisions? Answer Entry Date Author Status No 10/02/2023 2:18 PM PANTS CLOSER Raul Adler RN Active documented in this encounter Plan of Treatment Upcoming Encounters Date Type Department Care Team (Late st Contact Info) Description 11/19/2025 1:00 PM PANTS CLOSER Appointment [facility] [address] [place] [address] Viv Seo MD [address] [place] [phone] 11/27/2025 11:30 AM PANTS CLOSER Office Visit [facility] [address] [place] [address] Viv Seo MD [address] [place] [phone] documented as of this encounter Goals Goal [...] Rule Out 12/19/2023 12/19/2023 12/19/2023 6:05 AM PANTS CLOSER COVID-19 Rule Out 12/26/2023 12/26/2023 12/26/2023 5:39 PM PANTS CLOSER documented as of this encounter Care Teams Order Entry Clerk Relationship Specialty Start Date End Date New Referring, Provider PCP - General UNKNOWN PHYSICIAN SPECIALTY 10/02/23 10/04/23 Anne Kendrick MD [address] [facility] [place] [address] PCP - General FAMILY PRACTICE 10/05/23 11/29/24 Kahlil Peres MD [address] [place] [phone] PCP - General FAMILY PRACTICE 11/30/24 Emeka Garcia MD [address] [place] [address] Consulting Physician CLINICAL CARDIAC ELECTROPHYSIOLOGY 03/30/23 Viv Seo MD [address] [place] [address] Consulting Physician CARDIOVASCULAR DISEASE 05/11/24 Melany Oseguera PA-C [address] [place], [place] [address] Referring Physician PHYSICIAN AIR MOVING TECHNICIAN 04/01/25 documented as of this encounter
--- OUTSIDE RECORDS SUMMARY | 2025-07-30 08:12 | XMS_ITS | Patient Health Record ---
Author Organization Cardiology Physician [facility], [facility] Address [address] [facility] [address] [place] [address] Care Team Providers Care Relay Assembler Name Role Phone ALICE FALCON Unavailable [phone] Reason For Referral No Information Medications Medication SIG (Take, Route, Frequency, Duration) Notes Start Date End Date Status Eliquis 5 MG Oral 05/26/2022 Active FENOFIBRATE MICRONIZED 48 MG TABLET *Reorder from [employer] for eRx and Interaction Alerts* 05/26/2022 Active [...] Status W/U Status Risk Notes Problem Hypothyroidism (54424776) Hypothyroidism, unspecified (E03.9) 03/26/20 22 Active confirmed Problem Angina pectoris (599494736) Angina pectoris, unspecified (I20.9) 03/26/20 22 Active confirmed Problem Atherosclerotic heart disease of [place] coronary artery without angina pectoris (078574943091569) Atherosclerotic heart disease of [place] coronary artery without angina pectoris (I25.10) 05/26/20 22 Active confirmed Problem Chronic atrial fibrillation (338603225) Chronic atrial fibrillation (I48.2) 07/03/20 19 Active confirmed Problem Peripheral vascular disease (649010961) Peripheral vascular disease, unspecified (I73.9) 05/26/20 22 Active confirmed Problem Dyspnea (652635380) Dyspnea, unspecified (R06.00) 03/26/20 22 Active confirmed Problem Tremor (11802773) Tremor, unspecified (R25.1) 01/17/20 20 Active confirmed Problem Long-term current use of drug therapy (027847441) Other dedicated intermodal truck driver (current) drug therapy (Z79.899) 03/26/20 22 Active confirmed Problem Mixed hyperlipidemia (360799873) Mixed hyperlipidemia (E78.2) 05/26/20 22 Active confirmed Problem Essential hypertension (40335060) Essential (primary) hypertension (I10) 06/09/20 23 Active confirmed Problem Mitral valve disorder (51846918) Nonrheumatic mitral (valve) insufficiency (I34.0) 03/26/20 22 Active confirmed Problem Atrial fibrillation (02272411) Unspecified atrial fibrillation (I48.91) 05/26/20 22 Active confirmed Plan Of Treatment No Information Insurance Providers Payer Name Payer Address Payer Phone Subscriber Number Group Number Insured Name Patient Relationship to Insured Coverage Start Date Coverage End Date Medicare Part B [address] [place] [phone] [id number] TERRI SALDIVAR Self - patient is the insured Medical (General) History Surgical History Surgery Date(Month/Year) Biopsy of lung (56249785) RIGHT Procedure on shoulder ([id number]) [employer] LEFT SHOULDER SEPARATION Colonoscopy 03/25/2013 Percutaneous transluminal co ronary angioplasty (83153048) STENT TO LAD -CARDIAC CATH 2 STENTS 08/21/2012
[2025-07-30 08:30] LABS: Thyroid Stimulating Hormone 1.850 uIU/mL (0.465-4.680)
[2025-07-30] MEDS: FUROSEMIDE INJ 40 MG/4 ML VIAL IV PUSH ×2 (08:35→20:30)
--- NOTE | 2025-07-30 09:44 | ADMGEN ---
This patient, Claudio Devries, was admitted to 2nd Floor Room 202-1. Patient/family oriented to hospital policies and general routines including ID bracelet, bed and alarms, visiting hours, pain management, procedures, bathroom and other care routines, personal items, smoking policy, room service/diet, and visiting hours. Information on how to activate the Rapid Response Team has been discussed. Patient/Family are encouraged to report perceived risks to care and to ask questions if they do not understand what they are told or what they should do.
[2025-07-30 12:02] LABS: Troponin I 0.030 ng/mL (0.000-0.034)
[2025-07-30] MEDS: METOPROLOL TARTRATE 50 MG TAB PO ×2 (12:55→20:31)
--- NOTE | 2025-07-30 13:00 | PM.IMHP ---
H&P: HPI History of Present Illness Date/Time: 07/30/25 13:00 Chief Complaint: Congestive heart failure , Atrial fibrillation , Narrative: 70-year-old with a history of atrial fibrillation, hypertension, anxiety disorder, alcoholism presents to ER with complaints of shortness of breath for last 3-4 days. Patient states that he woke up at 4:00 a.m. this morning feeling short of breath patient he denies having any chest pain. No history of fever or chills. Has occasional cough. Patient has a history o with a significant past medical history of coronary artery disease, ascending aorta dilatation, [place], hyperlipidemia, hypertension, alcoholism, AFib who presented to the hospital with complaints of shortness of breath. Workup in the hospital included a chest x-ray which showed linear atelectasis or scarring in the left lung base otherwise clear lungs. Initial labs showed a creatinine 2.02, EGFR 39, blood sugar 168, troponin 0.032> 24.3, proBNP 74845, TSH 1.8. UA was obtained which showed trace urine protein otherwise negative. Initial EKG showing AFib with RVR with a rate of 108, QTC 458. He was given metoprolol 50 mg. he denies any recent illness or sick contacts. He also denies any fever, chills, nausea, vomiting, diarrhea, abdominal pain, chest pain, shortness a breath. He states that he stopped drinking alcohol 2 weeks ago and does have a notable tremor in bilateral upper extremities. He was also given a dose of 40 mg IV push Lasix. Patient will continue to have to recieve IV diuresis and avoid all other he is in need of a Echo and more than likely would need to be started on GDMT. I was unable to find any past echo order was placed if not inpatient he can recieve it as a outpateint Review of Systems Review of Systems: Shortness of breath and CHF All systems reviewed & are unremarkable except as noted in HPI and below Constitutional: Constitutional: Reports no additional constitutional complaints Eyes: Eyes: Reports no additional eye complaints ENT: Reports system reviewed and no additional complaints, except as documented Cardiovascular: Cardiovascular: Reports no additional cardiovascular complaints Respiratory: Respiratory: Reports as per HPI Gastrointestinal: Gastrointestinal: Reports no additional gastrointestinal complaints Musculoskeletal: Musculoskeletal: Reports no additional musculoskeletal complaints [facility] Past Medical History Medical History Cystitis Tremor of both hands Hypothyroidism CAD (coronary artery disease) Ascending aorta dilatation Myocardial infarction Hyperlipidemia Hypertension Alcoholism A-fib Closed rib fracture Family History Family History Father Lung cancer Social History Social History Smoking status: Never smoker Second hand tobacco smoke exposure: No Alcohol intake: current Drinks per week: 2 Substance use: never Substance use type: does not use Do You Feel Safe in your Home?: Yes Lack of Transportation: No Lack of Food: Never True Current Housing: I Have Housing Concerned About Future Housing: No Difficulty Paying Gas/Electric Bills: No Difficulty Paying for Meds: No Currently Unemployed: No Education: Grade School Difficulty w/ Childcare or Family Care: No Spiritual care concerns: No Meds Home Medications and Allergies Home Medications ?Medication ?Instructions ?Recorded ?Confirmed ?Type duloxetine 30 mg capsule,delayed 30 mg PO DAILY 07/01/23 07/30/25 History release apixaban 5 mg tablet (Eliquis) 5 mg PO BID 10/25/24 07/30/25 History multivitamin with folic acid 400 1 tablet PO QAM #1 tablet 10/27/24 07/30/25 Rx mcg tablet (Thera) trazodone 50 mg tablet 50 mg PO HS PRN Insomnia #1 tablet 10/27/24 07/30/25 Rx metoprolol tartrate 25 mg tablet 50 mg PO Q12HR 03/06/25 07/30/25 History Allergies Allergy/AdvReac Type Severity Reaction Status Date / Time magnesium sulfate AdvReac Intermediate Flushing Verified 07/30/25 07:20 Vital Signs Vital Signs - 24 hr 07/30/25 07:26 07/30/25 07:26 07/30/25 07:26 Temperature 98.1 F Pulse Rate 105 H 105 H Respiratory Rate 22 H Blood Pressure 154/89 H Pulse Oximetry 96 96 Oxygen Delivery Room Air Room Air 07/30/25 07:37 07/30/25 07:45 07/30/25 08:01 Temperature Pulse Rate 102 H 94 104 H Respiratory Rate 20 26 H 23 H Blood Pressure 165/98 H Pulse Oximetry 96 96 94 Oxygen Delivery 07/30/25 08:15 07/30/25 08:30 07/30/25 09:24 Temperature Pulse Rate 92 99 103 H Respiratory Rate 22 H 34 H 18 Blood Pressure Pulse Oximetry 94 96 Oxygen Delivery Room Air 07/30/25 10:30 07/30/25 12:00 07/30/25 12:55 Temperature 97.6 F Pulse Rate 103 H 101 H 101 H Respiratory Rate 18 Blood Pressure 168/102 H Pulse Oximetry 96 Oxygen Delivery Room Air Exam Narrative: talkative Tremors noted when patient is talking Const: General: comfortable and no acute distress Eyes: General: appearance normal, both eyes and all related structures Resp: Effort & Inspection: normal respiratory effort Auscultation: clear to auscultation bilaterally GI: GI Palp: Yes Soft to palpation : Male General Exam: Yes normal external exam Skin: General skin exam: normal color Neuro: General: gait normal Speech: normal speech Extrem: General: normal to inspection Psych: Mental Status: mental status grossly normal Affect: normal affect and Anxious affect present H&P: Results Labs Labs: Short CBC 07/30/25 Range/Units 07:24 WBC 8.0 (4.8-10.8) K/mm3 Hgb 13.5 (12.4-15.3) g/dL Hct 41.4 (37.0-46.0) % Plt Count 196 (150-420) K/mm3 BMP 07/30/25 07:24 Sodium 142 Potassium 4.8 Chloride 107 Carbon Dioxide 25 BUN 25 H Creatinine 1.76 H Glucose 168 H Calcium 9.9 Cardiac Enzymes 07/30/25 07/30/25 Range/Units 07:24 11:31 Troponin I 0.032 0.030 (0.000-0.034) ng/mL Liver Function 07/30/25 Range/Units 07:24 Total Bilirubin 1.9 H (0.2-1.3) mg/dL AST 38 (17-59) U/L ALT 25 (6-50) U/L Alkaline Phosphatase 65 (38-126) U/L Albumin 4.2 (3.5-5.1) g/dL Assessment and Plan Assessment and plan (1) CHF exacerbation: Qualifiers: Heart failure type: combined systolic and diastolic Qualified Code(s): I50.43 - Acute on chronic combined systolic (congestive) and diastolic (congestive) heart failure Code(s): I50.9 - Heart failure, unspecified Status: Acute Assessment and Plan: IV lasix 40 mg bid in need of ECho May need to Maxamize GDMT depending of EF BB- (2) Atrial fibrillation with RVR: Code(s): I48.91 - Unspecified atrial fibrillation Status: Acute Assessment and Plan: Telemetry Metoprolol 50 mg bid (3) CAD (coronary artery disease): Code(s): I25.10 - Atherosclerotic heart disease of [place] coronary artery without angina pectoris Status: Acute Assessment and Plan: continue home medication (4) Hypertension: Code(s): I10 - Essential (primary) hypertension Status: Acute Assessment and Plan: continue home medication may need to add medication depending on blood pressure
[2025-07-30] MEDS: MULTIVITAMINS THERAPEUTIC TAB (*BKC) 1 TABLET PO (13:35)
[2025-07-30] MEDS: FOLIC ACID 1 MG TABLET PO (13:35)
--- NOTE | 2025-07-30 14:45 | ECHO_ITS ---
Patient Info Name: Claudio Devries Age: 70 years : 1955 Gender: Male Ht: 70 in Wt: 174 lbs BSA: 1.98 m2 HR: 89 bpm BP: 136 / 81 mmHg Technical Quality: Good Exam Date: 07/30/2025 2:35 PM Patient Status: I Admit Date: 07/30/2025 Exam Type: CA echo dop color flow w con Complete two-dimensional, color flow and Doppler transthoracic echocardiogram is performed with contrast to opacify the left ventricle and to improve the deliniation of the left ventricle endocardial borders. Staff Referring Physician: Familia Carcamo MD [place] Crewmember: Hanna Jones Attending Provider: Timothy Montoya MD Contrast/Agitated Saline Contrast/Ag. Saline: Definity Amount: 2.00 ml Administered By: Hanna Jones Summary 1. Contrast administered improved wall motion interpretation. 2. Left ventricular chamber dimension is moderately enlarged. 3. Left ventricular systolic function is severely globally reduced, estimated at 25-30. 4. The left ventricular diastolic function is abnormal. 5. E/e' 13 is mildly elevated. 6. Left atrial chamber dimension is severely enlarged. 7. Right atrial chamber dimension is severely enlarged. 8. The aortic valve is possibly bicuspid. 9. There is moderate aortic valve sclerosis. 10. There is mild to moderate aortic valve regurgitation. 11. There is mild to moderate mitral valve regurgitation. 12. There is mild to moderate tricuspid valve regurgitation. 13. Severe pulmonary hypertension, estimated pulmonary arterial systolic pressure is 83 mmHg. 14. There is trace pulmonic regurgitation. 15. The aortic root size at the sinus of Valsalva is borderline dilated at 4.1 cm. 16. Dilated inferior vena cava with >50% collapse upon inspiration consistent with elevated right atrial pressure, 10 mmHg. Left Ventricle Left ventricular chamber dimension is moderately enlarged. Left ventricular systolic function is severely globally reduced, estimated at 25-30. The left ventricular diastolic function is abnormal. Contrast administered improved wall motion interpretation. E/e' 13 is mildly elevated. Right Ventricle Right ventricular chamber dimension is normal. Right ventricular systolic function is normal. Left Atria Left atrial chamber dimension is severely enlarged. Right Atria Right atrial chamber dimension is severely enlarged. Aortic Valve The aortic valve is possibly bicuspid. There is moderate aortic valve sclerosis. There is no aortic valve stenosis. There is mild to moderate aortic valve regurgitation. Pulmonic Valve There is trace pulmonic regurgitation. Mitral Valve There is no mitral valve stenosis. There is mild to moderate mitral valve regurgitation. Tricuspid Valve There is mild to moderate tricuspid valve regurgitation. Severe pulmonary hypertension, estimated pulmonary arterial systolic pressure is 83 mmHg. Pericardium/Pleural There is no pericardial effusion. Inferior Vena Cava Dilated inferior vena cava with >50% collapse upon inspiration consistent with elevated right atrial pressure, 10 mmHg. Aorta The aortic root size at the sinus of Valsalva is borderline dilated at 4.1 cm. Left Ventricular Outflow Tract Name Value Normal LVOT 2D LVOT Diameter 2.0 cm LVOT Doppler LVOT Peak Velocity 141 cm/s LVOT Peak Gradient 8 mmHg LVOT Mean Gradient 5 mmHg LVOT VTI 28 cm LVOT VTI/AV VTI Ratio 0.8 LVOT Stroke Volume 93 ml LVOT CO 8.6 l/min LVOT CI 4.4 l/min/m2 Pulmonic Valve Name Value Normal RVOT Doppler RVOT Peak Velocity 57 cm/s RVOT Peak Gradient 1 mmHg PV Doppler PV Peak Velocity 71 cm/s PV Peak Gradient 2 mmHg Mitral Valve Name Value Normal MV Regurgitation Doppler MR Peak Gradient 118 mmHg MV Diastolic Function MV E Peak Velocity 82 cm/s MV A Peak Velocity 77 cm/s MV E/A 1.1 MV Decel Time (PW) 230 ms MV Annular TDI MV E/e' (Septal) 17.9 MV E/e' (Lateral) 11.1 MV E/e' (Average) 14.5 Tricuspid Valve Name Value Normal TV Regurgitation Doppler TR Peak Velocity 427 cm/s TR Peak Gradient 56 mmHg Estimated PAP/RSVP RA Pressure 10 mmHg <=5 PA Systolic Pressure 83 mmHg <36 RV Systolic Pressure 83 mmHg <36 Aortic Valve Name Value Normal AV Doppler AV Peak Velocity 215 cm/s AV Peak Gradient 16 mmHg AV Mean Gradient 8 mmHg AV VTI 37 cm AV Area (Cont Eq VTI) 2.5 cm2 >=3.0 AV Area (Cont Eq Tay) 2.2 cm2 AV DI (Tay) 0.66 AV Regurgitation 2D LVOT Area 3.3 cm2 Ventricles Name Value Normal LV Dimensions 2D/MM IVS Diastolic Thickness (2D) 1.0 cm 0.6-1.0 LVID Diastole (2D) 4.7 cm 4.2-5.8 LVIW Diastolic Thickness (2D) 1.2 cm 0.6-1.0 LVID Systole (2D) 4.0 cm 2.5-4.0 LVOT Diameter 2.0 cm LV Mass (2D Cubed) 184.63 g 88.00-224.00 LV Mass Index (2D Cubed) 93 g/m2 49-115 Relative Wall Thickness (2D) 0.49 <=0.42 LV Fractional Shortening/Ejection Fraction 2D/MM LV Fractional Shortening (2D) 16 % 25-43 LV EF (2D Teichholz) 35 % LV Diastolic Volume (4C MOD) 172 ml LV EF (4C MOD) 45 % LV Diastolic Volume (2C MOD) 104 ml LV EF (2C MOD) 27 % LV Diastolic Volume (BP MOD) 136 ml 62-150 LV Diastolic Volume Index (BP MOD) 69 ml/m2 34-74 LV Systolic Volume (BP MOD) 85 ml 21-61 LV Systolic Volume Index (BP MOD) 43 ml/m2 11-31 LV EF (BP MOD) 38 % 52-72 LV Diastolic Length (4C) 8.6 cm LV Systolic Length (4C) 7.6 cm LV Stroke Volume (4C MOD) 78 ml Atria Name Value Normal LA Dimensions LA Volume (4C A-L) 98 ml LA Volume (BP A-L) 113 ml RA Dimensions RA Systolic Major [place] Length (4C) 7.5 cm 2.1-2.7 RA Area (4C) 32.9 cm2 <=18.0 Report Signatures
[2025-07-30 15:00] LABS: Troponin I 0.028 ng/mL (0.000-0.034)
[2025-07-30] MEDS: PERFLUTREN LIPID MICROSPHERES 1.5 ML VIAL DILUTED TO 10 ML TOTAL VOLUME IV PUSH (15:54)
--- NOTE | 2025-07-30 15:54 | IVDEFINITY ---
Prior to administration of IV Definity the patient was educated on the risks and benefits of the imaging enhancing agent including potential adverse side effects. The patient verbalized understanding. Allergies were verified. No exclusion criteria were identified and at least one of the following inclusion criteria were met: 1) physician request, 2) patient technically difficult to image (per the [place] [employer] guidelines of two or more segments not discernable within the apical view), or 3) questionable left ventricular function. ?
[2025-07-30] MEDS: APIXABAN 2.5 MG TABLET 5 MG BY MOUTH (17:03)
[2025-07-30] MEDS: HYDROcodone/acetaminophen (*CRX) 5-325 MG TABLET 1 TAB PO (20:42)
[2025-07-31] VITALS: PULSE 79
[2025-07-31 03:43] VITALS: BP 136/74; PULSE 74; RESP 18; TEMP 36.5; O2SAT 97
[2025-07-31 05:50] LABS: Anion Gap 11 mmol/L (4-12); Blood Urea Nitrogen 32 mg/dL (9-20); Calcium 9.6 mg/dL (8.4-10.2); Carbon Dioxide 26 mmol/L (22-30); Chloride 102 mmol/L (98-107); Estimated CRCL calculation 39 ml/min; Estimated Glomerular Filt Rate 41; Glucose 127 mg/dL (65-110); Osmolality Calculated 296 mOsm/kg (285-295); Potassium 3.8 mmol/L (3.4-5.0); Sodium 139 mmol/L (137-145)
[2025-07-31 08:00] VITALS: BP 166/89; PULSE 84; RESP 18; TEMP 36.6; O2SAT 96
[2025-07-31] MEDS: FUROSEMIDE INJ 40 MG/4 ML VIAL IV PUSH (08:19)
[2025-07-31] MEDS: APIXABAN 2.5 MG TABLET 5 MG BY MOUTH (08:19)
[2025-07-31 08:22] VITALS: PULSE 84
[2025-07-31] MEDS: METOPROLOL TARTRATE 50 MG TAB PO (08:22)
[2025-07-31] MEDS: FOLIC ACID 1 MG TABLET PO (08:23)
[2025-07-31] MEDS: MULTIVITAMINS THERAPEUTIC TAB (*BKC) 1 TABLET PO (08:23)
--- NOTE | 2025-07-31 10:39 | PM.TDS ---
Transfer Discharge Sum: Prov Provider Date of admission: 07/30/25 08:26 Primary care physician: Anne Kendrick MD Admitting clinician: Antonino Montoya MD Attending physician on admission: Timothy Montoya Attending physician on discharge: Timothy Montoya Discharging clinician: Maria Del Rosario Yuen Anticipated date of transfer: 07/31/25 Receiving physician/facility: [facility]/Dr. Braun DS: Admitting Diagnosis Discharge Date 07/31/2025 Admitting Diagnosis CHF/AFIB/A/C renal failure DS: Discharge Diagnosis Discharge Diagnosis (1) Heart failure with reduced ejection fraction (HFrEF, <= 40%) and combined systolic and diastolic dysfunction: Code(s): I50.40 - Unspecified combined systolic (congestive) and diastolic (congestive) heart failure Status: Acute (2) Hypertension: Code(s): I10 - Essential (primary) hypertension Status: Acute (3) CHF exacerbation: Qualifiers: Heart failure type: combined systolic and diastolic Qualified Code(s): I50.43 - Acute on chronic combined systolic (congestive) and diastolic (congestive) heart failure Code(s): I50.9 - Heart failure, unspecified Status: Acute (4) CAD (coronary artery disease): Code(s): I25.10 - Atherosclerotic heart disease of [place] coronary artery without angina pectoris Status: Acute (5) A-fib: Qualifiers: Atrial fibrillation type: unspecified Qualified Code(s): I48.91 - Unspecified atrial fibrillation Code(s): I48.91 - Unspecified atrial fibrillation Status: Acute (6) Ascending aorta dilatation: Code(s): I77.810 - Thoracic aortic ectasia Status: Acute (7) Hyperlipidemia: Code(s): E78.5 - Hyperlipidemia, unspecified Status: Acute (8) Acute on chronic kidney failure: Code(s): N17.9 - Acute kidney failure, unspecified; N18.9 - Chronic kidney disease, unspecified Status: Acute Transfer Discharge Sum: Med Medications Active and Home Medications: Home Medications duloxetine 30 mg capsule,delayed release 30 mg PO DAILY 07/01/23 [History Confirmed 07/30/25] apixaban 5 mg tablet (Eliquis) 5 mg PO BID 10/25/24 [History Confirmed 07/30/25] multivitamin with folic acid 400 mcg tablet (Thera) 1 tablet PO QAM #1 tablet 10/27/24 [Rx Confirmed 07/30/25] trazodone 50 mg tablet 50 mg PO HS PRN Insomnia #1 tablet 10/27/24 [Rx Confirmed 07/30/25] metoprolol tartrate 25 mg tablet 50 mg PO Q12HR 03/06/25 [History Confirmed 07/30/25] gabapentin 300 mg capsule 300 mg PO .DAILY HS Neuropathy 07/30/25 [History Confirmed 07/30/25] Active Medications Acetaminophen (Acetaminophen 325 Mg Tablet) 650 mg PO Q4H PRN PRN Reason: Mild Pain (1-3) or Fever Hydrocodone Bitart/Acetaminophen (Hydrocodone/Acetaminophen (*Crx) 5-325 Mg Tablet) 1 tab PO Q6H PRN PRN Reason: Moderate Pain (4-6) Last Admin: 07/30/25 20:42 Dose: 1 tab Apixaban (Apixaban 2.5 Mg Tablet) 5 mg BY MOUTH BID [facility] Last Admin: 07/31/25 08:19 Dose: 5 mg Duloxetine HCl (Duloxetine Hcl 30 Mg Capsule.Dr) 30 mg PO DAILY [facility] Last Admin: 07/31/25 08:22 Dose: 30 mg Folic Acid (Folic Acid 1 Mg Tablet) 1 mg PO DAILY [facility] Last Admin: 07/31/25 08:23 Dose: 1 mg Furosemide (Furosemide Inj 40 Mg/4 Ml Vial) 40 mg IV PUSH Q12HR [facility] Last Admin: 07/31/25 08:19 Dose: 40 mg Metoprolol Tartrate (Metoprolol Tartrate 50 Mg Tab) 50 mg PO Q12HR [facility] Last Admin: 07/31/25 08:22 Dose: 50 mg Morphine Sulfate (Morphine Sulfate (*Crx) 2 Mg/Ml Inj) 2 mg IV PUSH Q2H PRN PRN Reason: Pain Rated 7-10 Multivitamins Therapeutic (Multivitamins Therapeutic Tab (*Bkc)) 1 tablet PO QAM [facility] Last Admin: 07/31/25 08:23 Dose: 1 tablet Ondansetron HCl (Ondansetron Inj 4 Mg/2 Ml Vial) 4 mg IV PUSH Q4H PRN PRN Reason: Nausea Trazodone HCl (Trazodone Hcl 50 Mg Tablet) 50 mg PO HS PRN PRN Reason: Insomnia Last Admin: 07/30/25 20:30 Dose: 50 mg Transfer Discharge Sum: Hosp Hospital Course Hospital course: Admission: Per chart Patient was a 70-year-old with a history of atrial fibrillation, hypertension, anxiety disorder, alcoholism presents to ER with complaints of shortness of breath for last 3-4 days. Patient states that he woke up at 4:00 a.m. this morning feeling short of breath patient he denies having any chest pain. No history of fever or chills. Has occasional cough. Patient has a history o with a significant past medical history of coronary artery disease, ascending aorta dilatation, VT, hyperlipidemia, hypertension, alcoholism, AFib who presented to the hospital with complaints of shortness of breath. Workup in the hospital included a chest x-ray which showed linear atelectasis or scarring in the left lung base otherwise clear lungs. Initial labs showed a creatinine 2.02, EGFR 39, blood sugar 168, troponin 0.032> 24.3, proBNP 62332, TSH 1.8. UA was obtained which showed trace urine protein otherwise negative. Initial EKG showing AFib with RVR with a rate of 108, QTC 458. He was given metoprolol 50 mg. he denies any recent illness or sick contacts. He also denies any fever, chills, nausea, vomiting, diarrhea, abdominal pain, chest pain, shortness a breath. He states that he stopped drinking alcohol 2 weeks ago and does have a notable tremor in bilateral upper extremities. He was also given a dose of 40 mg IV push Lasix. Hospital course patient was admitted to the medical unit for acute exacerbation of CHF. Patient continued to receive IV diuresis 40 mg IV push b.i.d. patient reported overall improvement to his shortness of breath an echocardiogram was ordered which showed left ventricular systolic function with severe global reduced LVEF estimated around 25-30% with severe pulmonary hypertension at 83 mmHg this is a significant change from patient's previous echocardiogram February 2025 which showed normal systolic function with an LVEF of 60-65% as well as a normal diastolic function. due to significant change in patient's overall echocardiogram I discussed with patient transferring over to [facility] for further evaluation by Cardiology at which time he agreed. Dr Braun was called and discussed case for transfer at which time he accepted as well as speaking with Dr. Schulz from Cardiology who will consult on case once patient was transferred. patient currently on room air did report shortness a breath had improved denied any current chest pain, nausea, vomiting abdominal pain. patient evaluated at time transfer in no acute distress. Patient being transferred for further cardiology evaluation and possible need for ischemic workup will need to be optimized GDMT medications and possibly need for LifeVest pending cardiology recommendations. Patient Condition: Serious Time Spent with Patient Time attestation: Total time spent providing and/or coordinating transfer services: Total time spent: Greater than 30 minutes Exam Const: General: comfortable and no acute distress HENMT: Ears: TM's normal bilaterally Face/Nose/Sinus: Normal nares present Mouth: Yes moist mucous membranes Eyes: General: appearance normal, both eyes and all related structures Sclera: sclerae normal Pupils: Equal, round and reactive pupils present Neck: Neck: supple and no JVD Resp: Effort & Inspection: normal respiratory effort Auscultation: clear to auscultation bilaterally Cardio: Rhythm: abnormal rhythm Other: irregular irregular GI: GI Palp: Yes Soft to palpation Skin: General skin exam: normal color Neuro: General: gait normal Speech: normal speech Motor exam (neuro): 5/5 motor strength present throughout Sensory Exam: normal sensation Extrem: General: normal to inspection Psych: Mental Status: mental status grossly normal Affect: normal affect DS: Data Data Completed and Pending Labs on day of discharge: Labs from last 24 hours 07/31/25 07/30/25 07/30/25 05:21 14:24 11:31 Sodium 139 Potassium 3.8 Chloride 102 Carbon Dioxide 26 Anion Gap 11 BUN 32 H Creatinine 1.65 H Estim Creat Clear Calc 39 Estimated GFR 41 L Glucose 127 H Calculated Osmolality 296 H Calcium 9.6 Troponin I 0.028 0.030 Imaging Radiologist's impression: EXAMINATION: XR chest 1V portable DATE: 07/30/2025 07:29 INDICATION: Shortness of breath TECHNIQUE: frontal view of the chest was obtained. COMPARISON: Chest radiograph dated 06/15/2025 FINDINGS: Unchanged elevation left hemidiaphragm with linear discoid atelectasis/scarring at the left lower lung zone. Right lung remains clear. No pulmonary edema, pleural effusion or pneumothorax. The cardiomediastinal silhouette is normal. Coronary artery stenting. Several old healed right-sided rib fractures. IMPRESSION: 1. Chronic atelectasis/scarring at the left lower lung zone with elevation the left hemidiaphragm. No acute cardiopulmonary disease. Additional Comments Additional comments: -Patient's previous records reviewed on admission -ER notes reviewed in detail on admission -discussed all findings and current treatment plan with patient/Family/POA -Consultations reviewed for recommendations -Patient's disposition for safe discharge discussed with case briefer Dictation performed by [employer] direct speech recognition software, therefore in flight refueling manager variants and typographical errors may occur.
--- NOTE | 2025-07-31 11:08 | PC.NURSE ---
Today at 1050, gave report to Amber PUENTE at [facility].
--- NOTE | 2025-07-31 11:33 | PC.NURSE ---
Patient left this facility at 1125 with [facility] ALC service in route to [facility] room 214 to the care of Dr. Braun. Patiet Alert and oriented time 4, no pain stated, Resp even and unlabored. Report to EMS by charge nurse upon departure.
== END 2025-07-31 11:25 | disposition short-term general hospital (02) ==
LOC: CHSED 08:25 → CHS2ND 08:50
PROVIDERS: Admitting Provider Internal Medicine; Emergency Provider Family Medicine; PCP Family Medicine; Visit Provider Internal Medicine
DX: I48.91 Unspecified atrial fibrillation (principal); N17.9 Acute kidney failure, unspecified; I13.0 Hypertensive heart and chronic kidney disease with heart failure and stage 1 through stage 4 chronic kidney disease, or unspecified chronic kidney disease; I50.43 Acute on chronic combined systolic (congestive) and diastolic (congestive) heart failure; N18.9 Chronic kidney disease, unspecified; R06.02 Shortness of breath; F41.9 Anxiety disorder, unspecified; I25.10 Atherosclerotic heart disease of native coronary artery without angina pectoris; E03.9 Hypothyroidism, unspecified; I25.2 Old myocardial infarction; E78.5 Hyperlipidemia, unspecified; Z79.01 Long term (current) use of anticoagulants; I77.810 Thoracic aortic ectasia
CPT/HCPCS: 36415; 71045; 80048; 80053; 83880; 84443; 84484; 85025; 93005; 96374; 96375; 96376; 99285; A9270; C8929; G0378; J1938; Q9957

== ENCOUNTER 2025-07-31 13:57 | Inpatient (IN) | payer MEDICARE, SELFPAY ==
[2025-07-31] VITALS (7 sets, daily range): BP systolic 129–154; BP diastolic 71–84; PULSE 84–100; RESP 18–20; TEMP 36.4–37; O2SAT 96–99; BMI 24.3
--- OUTSIDE RECORDS SUMMARY | 2025-07-31 11:42 | XMS_ITS | Encounter Summary ---
Author Organization [facility] Address [address] [place] [address] Care Team Providers Care Optomechanical Technician Name Role Phone Emeka Garcia MD Unavailable [phone] Anne Kendrick MD Primary Care Provider [phone] Viv Seo MD Unavailable Kahlil Peres MD Primary Care Provider [phone] Melany Oseguera PA-C Unavailable [phone] Encounter Details Date Type Department Care Team (Late st Contact Info) Description 01/02/2024 Hospital Follow-up Call [facility] Cardiovascular Care Unit [address] [place] [address] Dipika Moseley RN Social History Tobacco Use Types Packs/Day Years Used Date Smoking Tobacco: Never Smokeless Tobacco: Never Alcohol Use Standard Drinks/Week Comments Yes 0 (1 standard drink = 0.6 oz pur e alcohol) [facility] Utilities Answer Date Recorded In the past [...] Sex Assigned at Male 12/04/2024 9:12 AM ROBOTIC TECHNICIAN Legal Sex Male 5:48 PM ROBOTIC TECHNICIAN Gender Identity Not on file Sexual Orientation [...] Assessment Author Status Yes 12/26/2023 9:15 PM ROBOTIC TECHNICIAN Em Miranda RN Active * Do you have difficulty dressing or bathing? Answer Date of Assessment Author Status No 12/26/2023 9:15 PM Em Spann RN Active * Because of a physical, mental, or emotional condition, do you have difficulty doing errands alone such as visiting a doctor's office or shopping? Answer Date of Assessment Author Status Yes 12/26/2023 9:15 PM ROBOTIC TECHNICIAN Em Miranda RN Active documented as of [...] st Contact Info) Description 11/19/2025 1:00 PM ROBOTIC TECHNICIAN Appointment [facility] [address] [place] [address] Viv Seo MD [address] [place], [place] [phone] 11/27/2025 11:30 AM ROBOTIC TECHNICIAN [facility] [address] [place] [phone] Viv Seo MD [address] [place], [place] [phone] documented as of this encounter Goals Goal Patient Goal Type Associated Problems Recent Progress Patient-Stated? Author Patient will return to prior living situation and remain independent in ADLs upon discharge from hospital 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 RN documented as of this encounter Visit Diagnoses Not on filedocumented in this encounter Care Teams Optomechanical Technician Relationship Specialty Start Date End Date Anne Kendrick MD [address] [place] [phone] PCP - General FAMILY PRACTICE 10/05/23 11/29/24 Kahlil Peres MD [address] [place] [address] PCP - General FAMILY PRACTICE 11/30/24 Emeka Garcia MD [address] [place] [id number] Consulting Physician CLINICAL CARDIAC ELECTROPHYSIOLOGY 03/30/23 Viv Seo MD [address] [place], [place] [address] Consulting Physician CARDIOVASCULAR DISEASE 05/11/24 Melany Oseguera PA-C [address] [place], [place] [address] Referring Physician PHYSICIAN CERTIFIED REGISTERED NURSE PRACTITIONER 04/01/25 documented as of this encounter
--- OUTSIDE RECORDS SUMMARY | 2025-07-31 11:43 | XMS_ITS | Patient Health Record ---
Author Organization Cardiology Physician [facility] Address [address] [place] [address] Care Team Providers Care Senior Electrical Project Manager Name Role Phone ALICE FALCON Unavailable [phone] Reason For Referral No Information Medications Medication SIG (Take, Route, Frequency, Duration) Notes Start Date End Date Status Eliquis 5 MG Oral 05/26/2022 Active FENOFIBRATE MICRONIZED 48 MG TABLET *Reorder from Penxy for eRx and Interaction Alerts* 05/26/2022 Active [...] Status W/U Status Risk Notes Problem Hypothyroidism (84472365) Hypothyroidism, unspecified (E03.9) 03/26/20 22 Active confirmed Problem Angina pectoris (513642025) Angina pectoris, unspecified (I20.9) 03/26/20 22 Active confirmed Problem Atherosclerotic heart disease of [place] coronary artery without angina pectoris (574009113303454) Atherosclerotic heart disease of [place] coronary artery without angina pectoris (I25.10) 05/26/20 22 Active confirmed Problem Chronic atrial fibrillation (906656616) Chronic atrial fibrillation (I48.2) 07/03/20 19 Active confirmed Problem Peripheral vascular disease (224579458) Peripheral vascular disease, unspecified (I73.9) 05/26/20 22 Active confirmed Problem Dyspnea (311935329) Dyspnea, unspecified (R06.00) 03/26/20 22 Active confirmed Problem Tremor (96728887) Tremor, unspecified (R25.1) 01/17/20 20 Active confirmed Problem Long-term current use of drug therapy (025281880) Other intermediate manager (current) drug therapy (Z79.899) 03/26/20 22 Active confirmed Problem Mixed hyperlipidemia (507092192) Mixed hyperlipidemia (E78.2) 05/26/20 22 Active confirmed Problem Essential hypertension (27145033) Essential (primary) hypertension (I10) 06/09/20 23 Active confirmed Problem Mitral valve disorder (57570481) Nonrheumatic mitral (valve) insufficiency (I34.0) 03/26/20 22 Active confirmed Problem Atrial fibrillation (60248426) Unspecified atrial fibrillation (I48.91) 05/26/20 22 Active confirmed Plan Of Treatment No Information Insurance Providers Payer Name Payer Address Payer Phone Subscriber Number Group Number Insured Name Patient Relationship to Insured Coverage Start Date Coverage End Date Medicare Part B [address] [place] [phone] [id number] TERRI SALDIVAR Self - patient is the insured Medical (General) History Surgical History Surgery Date(Month/Year) Biopsy of lung (49088763) RIGHT Procedure on shoulder (10153 3003) [employer] LEFT SHOULDER SEPARATION Colonoscopy 03/25/2013 Percutaneous transluminal co ronary angioplasty (10886043) STENT TO LAD -CARDIAC CATH 2 STENTS 08/21/2012
--- OUTSIDE RECORDS SUMMARY | 2025-07-31 11:43 | XMS_ITS | Encounter Summary ---
Author Organization [facility] Address [address] [place] [address] Care Team Providers Care Superintendent [employer] Name Role Phone Emeka Garcia MD Unavailable [phone] New Referring, Provider Primary Care Provider Un available Anne Kendrick MD Primary Care Provider [phone] Viv Seo MD Unavailable Kahlil Peres MD Primary Care Provider [phone] Melany Oseguera PA-C Unavailable [phone] Encounter Details Date Type Department Care Team (Latest Contact Info) Description 10/02/2023 Hospital Encounter Tyler Bennett MD [address] [phone] Social History Tobacco Use Types Packs/Day Years Used Date Smoking Tobacco: Never Smokeless Tobacco: Never Alcohol Use Standard Drinks/Week Comments Yes 16.7 (1 standard drink = 0.6 oz pure alcohol) [facility] Utilities Answer Date Recorded In the past 12 months has e [employer], gas, oil, or water company threatened to [...] any time in the past 12 m [facility], were you homeless or living in a half-way (including now)? Patient unable to answer 11/30/2024 Sex and Gender Information Value Date Recorded Sex Assigned at Male 12/04/2024 9:12 AM AVIATION SURVIVAL TECHNICIAN Legal Sex Male 5:48 PM AVIATION SURVIVAL TECHNICIAN Gender Identity Not on file Sexual [...] 6:00 PM Reyes Gusman RN Active * Melissa Suicide Severity Rating Scale (Screener/Recent Self-Report) Question [...] or making decisions? Yes 11/30/2024 6:47 PM AVIATION SURVIVAL TECHNICIAN Ella Burch RN Active * Because of a physical, mental, or emotional condition, do you have serious difficulty concentrating, remembering, or making decisions? Answer Entry Date Author Status No 10/02/2023 2:18 PM AVIATION SURVIVAL TECHNICIAN Raul Adler RN Active documented in this encounter Plan of Treatment Upcoming Encounters Date Type Department Care Team (Late st Contact Info) Description 11/19/2025 1:00 PM AVIATION SURVIVAL TECHNICIAN Appointment [facility] [address] [facility] [place] [address] Viv Seo MD [address] [place] [phone] 11/27/2025 11:30 AM AVIATION SURVIVAL TECHNICIAN Office Visit [facility] [address] [place] [address] Viv Seo MD [address] [place] [phone] documented as of this encounter Goals Goal [...] Rule Out 12/19/2023 12/19/2023 12/19/2023 6:05 AM AVIATION SURVIVAL TECHNICIAN COVID-19 Rule Out 12/26/2023 12/26/2023 12/26/2023 5:39 PM AVIATION SURVIVAL TECHNICIAN documented as of this encounter Care Teams Superintendent [employer] And [employer] Systems Relationship Specialty Start Date End Date New Referring, Provider PCP - General UNKNOWN PHYSICIAN SPECIALTY 10/02/23 10/04/23 Anne Kendrick MD [address] [facility] [place] [address] PCP - General FAMILY PRACTICE 10/05/23 11/29/24 Kahlil Peres MD [address] [place] [phone] PCP - General FAMILY PRACTICE 11/30/24 Emeka Garcia MD [address] [place] [phone] Consulting Physician CLINICAL CARDIAC ELECTROPHYSIOLOGY 03/30/23 Viv Seo MD [address] [place] [address] Consulting Physician CARDIOVASCULAR DISEASE 05/11/24 Melany Oseguera PA-C [address] [place], [place] [address] Referring Physician PHYSICIAN DIRECTOR OF ONLINE EDUCATION 04/01/25 documented as of this encounter
--- OUTSIDE RECORDS SUMMARY | 2025-07-31 11:43 | XMS_ITS | Clinical Summary ---
Author Organization [facility] Address [address] [place] [address] Care Team Providers Care Fibrous Plasterer Name Role Phone Emeka Garcia MD Unavailable + [phone] Kain Childers MD Unavailable Kahlil Peres MD Primary Care Provider [phone] Melany Oseguera PA-C Unavailable + [phone] Allergies [...] Chronic systolic CHF (conges tive heart failure) ([facility]) 05/01/2025 Parotiditis 11/30/2024 NSTEMI (non-ST elevated myoc ardial infarction) ([facility]) 12/26/2023 Multiple fractures of ribs, bilateral, initial encounter for closed fracture 10/02/2023 Fall 10/02/2023 SOB (shortness of breath) on exertion 12/30/2022 Encounters Date Type Department Care Team Description 05/20/2025 2:45 PM CDT Office Visit [facility] [place] [address] [place] [address] Kain Childers MD Heart Problem 05/20/2025 1:48 PM CDT - 05/20/2025 11:59 PM CDT Hospital Encounter [facility] [place] [address] Kain Childers MD Discharge Disposition: Home or Self Care (Routine Discharge) 05/20/2025 Travel 05/17/2025 Telephone [facility] eld [address] [place] [address] Kain Childers MD Appointment Reminder 05/13/2025 Orders Only [facility] [address] [place] [address] Kain Childers MD 05/01/2025 12:30 PM CDT Office Visit [facility] [place] [address] [place] [address] Melany Oseguera PA-C Follow Up 05/01/2025 12:15 PM CDT - 05/01/2025 11:59 PM CDT Hospital Encounter [facility] [place] [address] Melany Oseguera PA-C Discharge Disposition: Home or [...] standard drink = 0.6 oz pure alcohol) [facility] Utilities Answer Date Recorded In the past [...] place to sleep or slept in a snf (including now)? No 12/27/2023 Housing Stability Vital [...] in the past 12 m [facility], were you homeless or living in a snf (including now)? Patient unable to answer 11/30/2024 Sex and Gender Information Value Date Recorded Sex Assigned at Male 12/04/2024 9:12 AM HIM DIRECTOR Legal Sex Male 5:48 PM HIM DIRECTOR Gender Identity Not on file Sexual Orientation Not on file Last Filed Vital Signs Vital Sign Reading Time Taken Comments Blood Pressure 153/88 05/20/2025 2:50 PM CDT Pulse 85 05/20/2025 2:44 PM CDT Temperature 36.5 C (97.7 F) 12/18/2024 8:01 AM HIM DIRECTOR Respiratory Rate 16 05/20/2025 2:44 PM CDT Oxygen Saturation 98% 05/20/2025 2:44 PM CDT Inhaled Oxygen Concentration - - Weight 76.2 kg (168 lb) 05/20/2025 2:44 PM CDT Height 177.8 cm (5' 10) 05/20/2025 2:44 PM CDT Body Mass Index 24.11 05/20/2025 2:44 PM CDT Plan of Treatment Upcoming Encounters Date Type Department Care Team (Late st Contact Info) Description 11/19/2025 1:[address] [facility] [address] [place] [address] Kain Childers MD [address] [place] [address] 11/27/2025 11:30 AM HIM DIRECTOR Office Visit [facility] [address] [place] [phone] Kain Childers MD [address] [place] [address] Health Maintenance Due Date Last Done Comments [...] upon discharge from hospital Lifestyle Vicky Moreira, business banker Procedure Name Priority Date/Time Associated Diagnosis Comments ECG 12-LEAD Routine 05/20/2025 1:58 PM CDT Non-ST elevated myocardial infarction (CMS/HCC HHS/HCC) ECG 12-LEAD Routine 05/01/2025 12:41 PM CDT Longstanding persistent atrial fibrillation (CMS/HCC HHS/HCC) LIPID PANEL Routine 12/27/2023 7:08 AM HIM DIRECTOR from Last 3 Months or Most Recently Relevant to Health Maintenance Results * ECG 12-Lead (05/20/2025 1:58 PM CDT) Only the most recent of2 resultswithin the time period is included. 05/20/2025 1:58 PM CDT Narrative [facility] - 05/20/2025 6:22 PM CDT [address] [place] [address] Test Date: 2025-05-20 [facility] Department: 3 Room: Gender: Male Carpenters: : 1955 Requested By: KAIN CHILDERS Order Number: [id number] Reading MD: Kain Childers Measurements Intervals [place] Rate: 86 P: 0 [place]: 0 QRS: -50 QRSD: 113 T: 53 [...] Procedure Note Kain Childers MD - 05/20/[address] [place] [address] Test Date: 2025-05-20 Pat Name: TERRI SALDIVAR Department: 3 Room: Gender: Male Carpenters: : 1955 Requested By: KAIN CHILDERS Order Number: [id number] Reading MD: Kain Childers Measurements Intervals [place] Rate: 86 P: 0 IL: 0 QRS: -50 QRSD: 113 T: 53 [...] Kain Childers MD ECG ORDERABLES Final Result [facility] * LIPID PANEL (12/27/2023 7:08 AM HIM DIRECTOR) CHOLESTEROL 131 MG/DL 12/27/2023 8:36 AM [facility] Comment:DESIRABLE: <200 TRIGLYCERIDES 124 MG/DL 12/27/2023 8:36 AM [facility] Comment:<150 NORMAL HDL 54 >39 MG/DL 12/27/2023 8:36 AM [facility] LDL (CALCULATED) 52 MG/DL 12/27/19 8:36 AM [facility] Comment:<100 OPTIMAL VLDL CALCULATION 25 MG/DL 12/27/19 8:36 AM [facility] Comment:REFERENCE RANGE NOT ESTABLISHED CHOL/HDL RATIO 2.4 12/27/2023 8:36 AM [facility] Comment:REFERENCE RANGE NOT ESTABLISHED LDL/HDL 1.0 12/27/2023 8:36 AM [facility] Comment:REFERENCE RANGE NOT ESTABLISHED NON HDL CHOLESTEROL 77 MG/DL 12/27/2023 8:36 AM [facility] Comment:REFERENCE RANGE NOT ESTABLISHED 12/27/2023 7:08 AM HIM DIRECTOR Arline Calixto MD LABORATORY Final Res ult [facility] [address] [place] [address], [id number] from Last 3 Months or Most Recently Relevant to Health Maintenance Insurance MEDICARE Advance Directives Documents on File Type Date Recorded Patient Hydrology Teacher Expl anation Advance Directives and Living [...] 4:13 PM 12/31/2022 7:27 PM Care Teams Fibrous Plasterer Relationship Specialty Start Date End Date Kahlil Peres MD [address] [phone] PCP - General FAMILY PRACTICE 11/30/24 Emeka Garcia MD [address] [place] [address] Consulting Physician CLINICAL CARDIAC ELECTROPHYSIOLOGY 03/30/23 Kain Childers MD [address] [place] [address] Consulting Physician CARDIOVASCULAR DISEASE 05/11/24 Melany Oseguera PA-C [address] [place] [address] Referring Physician PHYSICIAN INVENTORY CONTROL ANALYST 04/01/25
--- NOTE | 2025-07-31 12:08 | ADMGEN ---
This patient, Claudio Devries, was admitted to IMU Room 214-01 @ 1158. Patient oriented to hospital policies and general routines including ID bracelet, bed and alarms, visiting hours, pain management, procedures, bathroom and other care routines, personal items, smoking policy, room service/diet, and visiting hours. received pt direct admit from [facility] c/o pain Information on how to activate the Rapid Response Team has been discussed. Patient encouraged to report perceived risks to care and to ask questions if they do not understand what they are told or what they should do.
--- OUTSIDE RECORDS SUMMARY | 2025-07-31 12:57 | XMS_ITS | Encounter Summary ---
Author Organization [facility] Address [address] [place] [address] Care Team Providers Care Manager Property Name Role Phone Emeka Garcia MD Unavailable [phone] Anen Kendrick MD Primary Care Provider + [phone] Viv Seo MD Unavailable Kahlil Peres MD Primary Care Provider [phone] Melany Oseguera PA-C Unavailable + [phone] Encounter Details Date Type Department Care Team (Late st Contact Info) Description 01/02/2024 Hospital Follow-up Call [facility] [address] [place] [address] Dipika Moseley RN Social History Tobacco Use Types Packs/Day Years Used Date Smoking Tobacco: Never Smokeless Tobacco: Never Alcohol Use Standard Drinks/Week Comments Yes 0 (1 standard drink = 0.6 oz pur e alcohol) [facility] Utilities Answer Date Recorded In the [...] place to sleep or slept in a mcfp (including now)? No 12/27/2023 Sex and Gender Information Value Date Recorded Sex Assigned at Male 12/04/2024 9:12 AM MANAGER OF APPLICATION DEVELOPMENT Legal Sex Male 5:48 PM MANAGER OF APPLICATION DEVELOPMENT Gender Identity Not on file Sexual Orientation [...] Assessment Author Status Yes 12/26/2023 9:15 PM MANAGER OF APPLICATION DEVELOPMENT Em Miranda RN Active * Do you have difficulty dressing or bathing? Answer Date of Assessment Author Status No 12/26/2023 9:15 PM Em Spann RN Active * Because of a physical, mental, or emotional condition, do you have difficulty doing errands alone such as visiting a doctor's office or shopping? Answer Date of Assessment Author Status Yes 12/26/2023 9:15 PM MANAGER OF APPLICATION DEVELOPMENT Em Miranda RN Active documented as of [...] st Contact Info) Description 11/19/2025 1:00 PM MANAGER OF APPLICATION DEVELOPMENT Appointment [facility] [address] [place] [address] Viv Seo MD [address] [place], [place] [phone] 11/27/2025 11:30 AM MANAGER OF APPLICATION DEVELOPMENT [facility] [address] [place] [phone] Viv Seo MD [address] [place], [place] [phone] documented as of this encounter Goals Goal Patient Goal Type Associated Problems Recent Progress Patient-Stated? Author Patient will return to prior living situation and remain independent in ADLs upon discharge from hospital 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 RN documented as of this encounter Visit Diagnoses Not on filedocumented in this encounter Care Teams Manager Property Relationship Specialty Start Date End Date Anne Kendrick MD [address] [place] [phone] PCP - General FAMILY PRACTICE 10/05/23 11/29/24 Kahlil Peres MD [address] [place] [address] PCP - General FAMILY PRACTICE 11/30/24 Emeka Garcia MD [address] [place] [address] Consulting Physician CLINICAL CARDIAC ELECTROPHYSIOLOGY 03/30/23 Viv Seo MD [address] [place], [place] [address] Consulting Physician CARDIOVASCULAR DISEASE 05/11/24 Melany Oseguera PA-C [address] [place], [place] [address] Referring Physician PHYSICIAN MACHINE CAPTAIN 04/01/25 documented as of this encounter
--- OUTSIDE RECORDS SUMMARY | 2025-07-31 12:57 | XMS_ITS | Encounter Summary ---
Author Organization [facility] Address [address] [place] [address] Care Team Providers Care Internal Communications Writer Name Role Phone Emeka Garcia MD Unavailable + [phone] New Referring, Provider Primary Care Provider Un available Anne Kendrick MD Primary Care Provider + [phone] Viv Seo MD Unavailable Kahlil Peres MD Primary Care Provider [phone] Melany Oseguera PA-C Unavailable + [phone] Encounter Details Date Type Department Care Team (Latest Contact Info) Description 10/02/2023 Hospital Encounter Tyler Bennett MD [address] [phone] Social History Tobacco Use Types Packs/Day Years Used Date Smoking Tobacco: Never Smokeless Tobacco: Never Alcohol Use Standard Drinks/Week Comments Yes 16.7 (1 standard drink = 0.6 oz pure alcohol) [facility] Utilities Answer Date Recorded In the past 12 months has e [employer], gas, oil, or water company threatened to [...] in a residential (including now)? No 12/27/2023 Housing Stability Vital Sign Answer Varinder e Recorded In the last 12 months, was t here a time when you were not able to pay the mortgage or rent on time? No 11/30/2024 In the past 12 months, how m any times have you moved where you were living? 1 11/30/2024 At any time in the past 12 m [facility], were you homeless or living in a residential (including now)? Patient unable to answer 11/30/2024 Sex and Gender Information Value Date Recorded Sex Assigned at Male 12/04/2024 9:12 AM RECEIVING SUPERVISOR Legal Sex Male 5:48 PM RECEIVING SUPERVISOR Gender Identity Not on file Sexual [...] 6:00 PM Reyes Gusman RN Active * [place] Suicide Severity Rating Scale (Screener/Recent Self-Report) Question [...] or making decisions? Yes 11/30/2024 6:47 PM RECEIVING SUPERVISOR Ella Burch RN Active * Because of a physical, mental, or emotional condition, do you have serious difficulty concentrating, remembering, or making decisions? Answer Entry Date Author Status No 10/02/2023 2:18 PM RECEIVING SUPERVISOR Raul Adler RN Active documented in this encounter Plan of Treatment Upcoming Encounters Date Type Department Care Team (Late st Contact Info) Description 11/19/2025 1:00 PM RECEIVING SUPERVISOR Appointment [facility] [address] [facility] [place] [address] Viv Seo MD [address] [place] [phone] 11/27/2025 11:30 AM RECEIVING SUPERVISOR Office Visit [facility] [address] [place] [address] Viv Seo MD [address] [place] [phone] documented as of this encounter Goals Goal [...] Rule Out 12/19/2023 12/19/2023 12/19/2023 6:05 AM RECEIVING SUPERVISOR COVID-19 Rule Out 12/26/2023 12/26/2023 12/26/2023 5:39 PM RECEIVING SUPERVISOR documented as of this encounter Care Teams Internal Communications Writer Relationship Specialty Start Date End Date New Referring, Provider PCP - General UNKNOWN PHYSICIAN SPECIALTY 10/02/23 10/04/23 Anne Kendrick MD [address] [facility] [place] [address] PCP - General FAMILY PRACTICE 10/05/23 11/29/24 Kahlil Peres MD [address] [place] [phone] PCP - General FAMILY PRACTICE 11/30/24 Emeka Garcia MD [address] [place] [address] Consulting Physician CLINICAL CARDIAC ELECTROPHYSIOLOGY 03/30/23 Viv Seo MD [address] [place] [address] Consulting Physician CARDIOVASCULAR DISEASE 05/11/24 Melany Oseguera PA-C [address] [place], [place] [address] Referring Physician PHYSICIAN HEALTHCARE MANAGEMENT 04/01/25 documented as of this encounter
--- OUTSIDE RECORDS SUMMARY | 2025-07-31 12:57 | XMS_ITS | Clinical Summary ---
Author Organization [facility] Address [address] [place] [address] Care Team Providers Care Staff Engineer Name Role Phone Emeka Garcia MD Unavailable [phone] Kain Childers MD Unavailable Kahlil Peres MD Primary Care Provider Melany Oseguera PA-C Unavailable + [phone] Allergies [...] Chronic systolic CHF (conges tive heart failure) ([facility]) 05/01/2025 Parotiditis 11/30/2024 NSTEMI (non-ST elevated myoc ardial infarction) ([facility]) 12/26/2023 Multiple fractures of ribs, bilateral, initial encounter for closed fracture 10/02/2023 Fall 10/02/2023 SOB (shortness of breath) on exertion 12/30/2022 Encounters Date Type Department Care Team Description 05/20/2025 2:45 PM CDT Office Visit [facility] [address] [place] [address] [place] [address] Kain Childers MD Heart Problem 05/20/2025 1:48 PM CDT - 05/20/2025 11:59 PM CDT Hospital Encounter [facility] [place] [address] Kain Childers MD Discharge Disposition: Home or Self Care (Routine Discharge) 05/20/2025 Travel 05/17/2025 Telephone [facility] el[facility] [address] [place] [address] Kain Childers MD Appointment Reminder 05/13/2025 Orders Only [facility] [address] [place] [address] Kain Childers MD 05/01/2025 12:30 PM CDT Office Visit [facility] [address] [place] [address] [place] [address] Melany Oseguera PA-C Follow Up 05/01/2025 12:15 PM CDT - 05/01/2025 11:59 PM CDT Hospital Encounter [facility] [place] [address] Melany Oseguera PA-C Discharge Disposition: Home or [...] standard drink = 0.6 oz pure alcohol) [facility] Utilities Answer Date Recorded In [...] any time in the past 12 m [facility], were you homeless or living in a snf (including now)? Patient unable to answer 11/30/2024 Sex and Gender Information Value Date Recorded Sex Assigned at Male 12/04/2024 9:12 AM SURGICAL SERVICES COORDINATOR Legal Sex Male 5:48 PM SURGICAL SERVICES COORDINATOR Gender Identity Not on file Sexual Orientation Not on file Last Filed Vital Signs Vital Sign Reading Time Taken Comments Blood Pressure 153/88 05/20/2025 2:50 PM CDT Pulse 85 05/20/2025 2:44 PM CDT Temperature 36.5 C (97.7 F) 12/18/2024 8:01 AM SURGICAL SERVICES COORDINATOR Respiratory Rate 16 05/20/2025 2:44 PM CDT Oxygen Saturation 98% 05/20/2025 2:44 PM CDT Inhaled Oxygen Concentration - - Weight 76.2 kg (168 lb) 05/20/2025 2:44 PM CDT Height 177.8 cm (5' 10) 05/20/2025 2:44 PM CDT Body Mass Index 24.11 05/20/2025 2:44 PM CDT Plan of Treatment Upcoming Encounters Date Type Department Care Team (Late st Contact Info) Description 11/19/2025 1:00 PM SURGICAL SERVICES COORDINATOR [facility]ointment [facility] [address] [place] [address] Kain Childers MD [address] [place] [address] 11/27/2025 11:30 AM SURGICAL SERVICES COORDINATOR Office Visit [facility] [address] [place] [phone] Kain Childers MD [address] [place] [address] Health Maintenance Due Date Last Done Comments [...] upon discharge from hospital Lifestyle Vicky Moreira, operating room technologist Procedure Name Priority Date/Time Associated Diagnosis Comments ECG 12-LEAD Routine 05/20/2025 1:58 PM CDT Non-ST elevated myocardial infarction (CMS/HCC HHS/HCC) ECG 12-LEAD Routine 05/01/2025 12:41 PM CDT Longstanding persistent atrial fibrillation (CMS/HCC HHS/HCC) LIPID PANEL Routine 12/27/2023 7:08 AM SURGICAL SERVICES COORDINATOR from Last 3 Months or Most Recently Relevant to Health Maintenance Results * ECG 12-Lead (05/20/2025 1:58 PM CDT) Only the most recent of2 resultswithin the time period is included. 05/20/2025 1:58 PM CDT Narrative [facility] - 05/20/2025 6:[address] PM CDT [address] [place] [address] Test Date: 2025-05-20 [facility] Department: 3 Room: Gender: Male Front Desk: : 1955 Requested By: KAIN CHILDERS Order Number: [id number] Reading MD: Kain Childers Measurements Intervals [place] Rate: 86 P: 0 MO: 0 QRS: -50 QRSD: 113 T: 53 [...] Procedure Note Kain Childers MD - 05/20/[address] [place] [address] Test Date: 2025-05-20 Pat Name: TERRI SALDIVAR Department: 3 Room: Gender: Male Front Desk: : 1955 Requested By: KAIN CHILDERS Order Number: [id number] Reading MD: Kain Childers Measurements Intervals [place] Rate: 86 P: 0 MO: 0 QRS: -50 QRSD: 113 T: 53 [...] Kain Childers MD ECG ORDERABLES Final Result [facility] * LIPID PANEL (12/27/2023 7:08 AM SURGICAL SERVICES COORDINATOR) CHOLESTEROL 131 MG/DL 12/27/2023 8:36 AM [facility] Comment:DESIRABLE: <200 TRIGLYCERIDES 124 MG/DL 12/27/2023 8:36 AM [facility] Comment:<150 NORMAL HDL 54 >39 MG/DL 12/27/2023 8:36 AM [facility] LDL (CALCULATED) 52 MG/DL 12/27/19 8:36 AM [facility] Comment:<100 OPTIMAL VLDL CALCULATION 25 MG/DL 12/27/19 8:36 AM [facility] Comment:REFERENCE RANGE NOT ESTABLISHED CHOL/HDL RATIO 2.4 12/27/2023 8:36 AM [facility] Comment:REFERENCE RANGE NOT ESTABLISHED LDL/HDL 1.0 12/27/2023 8:36 AM [facility] Comment:REFERENCE RANGE NOT ESTABLISHED NON HDL CHOLESTEROL 77 MG/DL 12/27/2023 8:36 AM [facility] Comment:REFERENCE RANGE NOT ESTABLISHED 12/27/2023 7:08 AM SURGICAL SERVICES COORDINATOR Arline Calixto MD LABORATORY Final Res ult [facility] [address] [place] [address], [id number] from Last 3 Months or Most Recently Relevant to Health Maintenance Insurance MEDICARE Advance Directives Documents on File Type Date Recorded Patient Inside Wirer Expl anation Advance Directives and Living Will [...] 4:13 PM 12/31/2022 7:27 PM Care Teams Staff Engineer Relationship Specialty Start Date End Date Kahlil Peres MD [address] [phone] PCP - General FAMILY PRACTICE 11/30/24 Emeka Garcia MD [address] [place] [address] Consulting Physician CLINICAL CARDIAC ELECTROPHYSIOLOGY 03/30/23 Kain Childers MD [address] [place] [address] Consulting Physician CARDIOVASCULAR DISEASE 05/11/24 Melany Oseguera PA-C [address] [place] [address] Referring Physician PHYSICIAN TIN ASSORTER 04/01/25
--- NOTE | 2025-07-31 14:37 | PM.IMHP ---
H&P: HPI History of Present Illness Date/Time: 07/31/25 14:37 Chief Complaint: Shortness of Breath Narrative: 70 y/o M with PMH of CAD, hypothyroidism, myocardial infarction, hyperlipidemia, hypertension, alcoholism, and AFib on anticoagulation presented with shortness of breath. The patient originally presented to [facility] on 07/30 for further evaluation of shortness of breath. He reports onset approximately 3-4 days prior to arrival. He reported a significant worsening in his shortness of breath at 4:00 a.m.. Shortness of breath was accompanied by a intermittent nonproductive cough. He reports he shortness of breath was exacerbated by laying flat. His initial workup was concerning for a CHF exacerbation and he was admitted for IV diuresis. He was started on Lasix 40 mg b.i.d. and had reported overall improvement since initiation. An echo was completed which showed an EF of 25-30% with severe pulmonary hypertension. This is a drastic difference compared to his previous echo in February of 2025 which showed an EF of 60-65%. This prompted a transfer to [facility] for further evaluation via Cardiology. The patient currently reports mild upper airway congestion and neuropathy in his bilateral feet. Denies chest pain, fever, chills, body aches, nausea, vomiting, diarrhea, or abdominal pain. Initial VS at presentation: 97.6? F, HR 88, RR 18, 136/84, and 96% on RA. ED workup showed: No leukocytosis, no anemia, creatinine 1.76 and GFR 38 (similar to previous), no significant electrolyte derangements, glucose 168, initial troponin 0.032, BNP 71363, TSH 1.85. CXR showed chronic atelectasis/scarring at the left lower lung zone with elevation of the left hemidiaphragm, no acute cardiopulmonary disease. EKG showed AFib with RVR, rate 109. Review of Systems Review of Systems: All systems reviewed & are unremarkable except as noted in HPI and below PMFSH Past Medical History Medical History Cystitis Tremor of both hands Hypothyroidism CAD (coronary artery disease) Ascending aorta dilatation Myocardial infarction Hyperlipidemia Hypertension Alcoholism A-fib Closed rib fracture Family History Family History Father Lung cancer Sibling Malignant neoplasm of prostate History of open heart surgery Social History Social History Smoking status: Never smoker Second hand tobacco smoke exposure: No Alcohol intake: current Drinks per week: 1 Substance use: never Substance use type: does not use Do You Feel Safe in your Home?: Yes Lack of Transportation: No Lack of Food: Never True Current Housing: I Have Housing Concerned About Future Housing: No Difficulty Paying Gas/Electric Bills: No Difficulty Paying for Meds: YES Currently Unemployed: No Education: High School Diploma/GED Difficulty w/ Childcare or Family Care: No Spiritual care concerns: No Meds Home Medications and Allergies Home Medications ?Medication ?Instructions ?Recorded ?Confirmed ?Type duloxetine 30 mg capsule,delayed 30 mg PO DAILY 07/01/23 07/31/25 History release apixaban 5 mg tablet (Eliquis) 5 mg PO BID 10/25/24 07/31/25 History multivitamin with folic acid 400 1 tablet PO QAM #1 tablet 10/27/24 07/31/25 Rx mcg tablet (Thera) trazodone 50 mg tablet 50 mg PO HS PRN Insomnia #1 tablet 10/27/24 07/31/25 Rx metoprolol tartrate 25 mg tablet 50 mg PO Q12HR 03/06/25 07/31/25 History gabapentin 300 mg capsule 300 mg PO .DAILY HS Neuropathy 07/30/25 07/31/25 History acetaminophen 325 mg capsule 650 mg PO Q4H PRN pain 07/31/25 07/31/25 History allopurinol 100 mg tablet 100 mg PO BID 07/31/25 07/31/25 History atorvastatin 80 mg tablet 80 mg PO QPM 07/31/25 07/31/25 History duloxetine 60 mg capsule,delayed 60 mg PO HS 07/31/25 07/31/25 History release ezetimibe 10 mg tablet 10 mg PO DAILY@79907/31/25 07/31/25 History fenofibric acid (choline) 45 mg 45 mg PO DAILY@79907/31/25 07/31/25 History capsule,delayed release levothyroxine 125 mcg tablet 125 mcg PO DAILY@79907/31/25 07/31/25 History lisinopril 10 mg tablet 10 mg PO DAILY@79907/31/25 07/31/25 History nifedipine 30 mg tablet,extended 30 mg PO DAILY@79907/31/25 07/31/25 History release 24 hr torsemide 10 mg tablet 10 mg PO DAILY@79907/31/25 07/31/25 History Allergies Allergy/AdvReac Type Severity Reaction Status Date / Time magnesium sulfate AdvReac Intermediate Flushing Verified 07/31/25 12:59 Vital Signs Vital Signs - 24 hr 07/31/25 12:06 07/31/25 13:30 07/31/25 14:00 Temperature 97.6 F Pulse Rate 88 84 Respiratory Rate 18 Blood Pressure 136/84 Pulse Oximetry 96 Oxygen Delivery Room Air Exam Const: General: comfortable and no acute distress Other: , male, elderly, nontoxic appearance HENMT: Face/Nose/Sinus: Normal nares present Mouth: Yes moist mucous membranes Eyes: General: appearance normal, both eyes and all related structures Sclera: sclerae normal Pupils: Equal, round and reactive pupils present EOM: EOMs intact bilaterally Resp: Effort & Inspection: normal respiratory effort Auscultation: clear to auscultation bilaterally Cardio: Rate: regular rate Rhythm: regular rhythm Other: S1-S2 present without murmur, rub, ectopy GI: Other: Abdomen soft, nondistended, nontender. Normoactive bowel sounds in all quadrants. Skin: General skin exam: normal color and no rashes or lesions noted Wounds: no wounds Neuro: Speech: normal speech Motor exam (neuro): 5/5 motor strength present throughout Sensory Exam: normal sensation Other: A&O x4 Extrem: General: normal to inspection Psych: Mental Status: mental status grossly normal Affect: normal affect Other: Good insight and judgment, extremely pleasant Assessment and Plan Assessment and plan (1) CHF exacerbation: Qualifiers: Heart failure type: combined systolic and diastolic Qualified Code(s): I50.43 - Acute on chronic combined systolic (congestive) and diastolic (congestive) heart failure Code(s): I50.9 - Heart failure, unspecified Status: Acute Assessment and Plan: - BNP 46067 - most recent echo (07/30/25): LV systolic function is severely globally reduced with an EF of 25-30%, diastolic function abnormal, biatrial enlargement, valvular disease noted, severe pulmonary hypertension. See report for full details. - echo, previous (03/06/25): LV systolic function normal, estimated EF 60 65%, diastolic function normal, biatrial enlargement, valvular disease noted, severe pulmonary hypertension. - started on Lasix 40 mg b.i.d. - cardiology consulted, Tim PORTILLO. provided the following recs: Exchange metoprolol to metoprolol succinate Start Entresto and Jardiance for his low EF Monitor renal function and potassium closely Consider starting spironolactone if potassium remains normal Due to significant decline in systolic function, recommended ischemic workup outpatient, no current indication to complete inpatient -> patient is established with [facility], recommending contacting his establish providers - hold torsemide 10 mg daily - monitor I&Os and daily weights - trend renal function Since initiation of Lasix 40 mg b.i.d., the patient reports significant improvement in his shortness of breath. No peripheral edema noted on exam, no crackles appreciated on exam. (2) PAF (paroxysmal atrial fibrillation): Code(s): I48.0 - Paroxysmal atrial fibrillation Status: Chronic Assessment and Plan: - history of chronic AFib but for the past 7-8 years - on metoprolol tartrate 50 mg b.i.d. and Eliquis outpatient, due to significantly worsening systolic function/EF cardiology recommended transitioning patient's metoprolol to metoprolol succinate. Continue Eliquis. - telemetry monitoring (3) Hypothyroidism: Qualifiers: Hypothyroidism type: unspecified Qualified Code(s): E03.9 - Hypothyroidism, unspecified Code(s): E03.9 - Hypothyroidism, unspecified Status: Chronic Assessment and Plan: - TSH 1.85 on 07/30 - continue Synthroid (4) Hypertension: Qualifiers: Hypertension type: primary hypertension Qualified Code(s): I10 - Essential (primary) hypertension Code(s): I10 - Essential (primary) hypertension Status: Acute Assessment and Plan: - chronic, currently 154/81 - home medications: continue nifedipine, hold lisinopril as the patient was started on Entresto - monitor Plan Diet: Heart healthy GI Prophylaxis: N/a DVT Prophylaxis: Eliquis IV fluids: none Lines/Tubes: peripheral IV Code Status: full code Quality VTE Prophylaxis VTE prophylaxis: pharmacologic ordered Hospitalist MIPS Advance Care Plan I have confirmed that the patient's Advanced Care Plan is present, code status is documented, or surrogate decision maker is listed in patient medical record.: Yes Medication Reconciliation I have utilized all available resources to obtain, update and review the patients current medications (includes all prescriptions, OTC, herbals, cannabis, and nutritional supplements).: Yes
--- NOTE | 2025-07-31 14:55 | PM.CNCAR ---
Assessment and Plan Assessment and plan (1) CHF exacerbation: Qualifiers: Heart failure type: combined systolic and diastolic Qualified Code(s): I50.43 - Acute on chronic combined systolic (congestive) and diastolic (congestive) heart failure Code(s): I50.9 - Heart failure, unspecified Status: Acute (2) A-fib: Qualifiers: Atrial fibrillation type: unspecified Qualified Code(s): I48.91 - Unspecified atrial fibrillation Code(s): I48.91 - Unspecified atrial fibrillation Status: Acute (3) CAD (coronary artery disease): Code(s): I25.10 - Atherosclerotic heart disease of [place] coronary artery without angina pectoris Status: Acute Plan This is a 70-year-old man with coronary artery disease, previous PCI 12 years ago and also history of chronic atrial fibrillation for at least 7-8 years. He had been managed with rate control and anticoagulation and had been doing well. He now presenting with some left-sided heart failure and unfortunately has a significant down turn in his left ventricular systolic function. At this point I would recommend transitioning his metoprolol to metoprolol succinate given his low ejection fraction. I will start Entresto and Jardiance for his low ejection fraction. Will have to close watch his renal function and potassium closely and consider starting spironolactone if his potassium remains normal. Spoke to the patient at length about the fact that this decline in his systolic function should launch an ischemia workup of some sort. Obviously that would potentially include a follow-up angiogram and or noninvasive testing at some sort of some sort. I do not plan on proceeding with any of that during this admission at [facility]. When he is feeling better and on appropriate medication he should be contacting his established critical care physician assistant from the [facility] to determine the path forward after that. Obviously it would have been appropriate to contact his established physicians to evaluate and treat his low ejection fraction but I was not informed when I receive received a request to authorize transferred [place] that he was established with a critical care physician assistant any where else. Alexis Dumont MD [facility] History of Present Illness History of Present Illness Consult date/time: 07/31/25 14:55 Reason For Visit: New Onset CHF/Cardiomyopathy Narrative: This is a very pleasant 70-year-old man I am seeing at the request of the hospitalist as he has been transferred to this hospital from [place] for evaluation of heart failure with reduced ejection fraction. I have no previous knowledge of this patient's case he says that he went to the emergency room and was admitted to [place] a couple of days ago because of increasing shortness of breath it has been bothering him for the last couple of weeks or so. He describes shortness of breath with activity and some episodes of paroxysmal nocturnal dyspnea. He has not noticed any accumulating edema. The patient finally went to the hospital he was evaluated and admitted. An echocardiogram was done which demonstrated evidence of low ejection fraction of 20-25% which is a new diagnosis for this patient and he was then transferred here for further evaluation. The patient says that he has a history of atrial fibrillation that dates back to about 7-8 years ago. He has been treated with metoprolol for rate control and systemic anticoagulation with with apixaban. The diagnosis was made when he lived in [place] he does not recall there being any attempt to restore sinus rhythm. He also has history of coronary artery disease that was identified about 12 years ago he states that he was having problems with chest pain at that point and was brought to the clinical laboratory assistant and underwent stenting of 2 of his coronary arteries. He does not have any of the details of that procedure and obviously be do not have records that as it occurred in [place]. He has not had any recent recurrences of this sort of chest pain. He considers himself usually to be in fairly good health and he is retired but is able to carry on a normal active lifestyle until the shortness of breath that is bothering him now. When he moved from [place] back to the to [place] a he became stab was with a critical care physician assistant in the [facility] [place] see him in 1 of her out reach offices in [place]. I do not believe there was any attempt to contact those physicians to transfer this patient to their care with the diagnosis of reduced ejection fraction. He is in good spirits otherwise and feels well. He does have chronic kidney disease with a creatinine that runs between 1.7 and 2. That looks to be his baseline looking through the records. His routine medications include metoprolol tartrate 50 mg q.12 hours and apixaban 5 mg b.i.d.. Review of Systems Constitutional: Constitutional: Reports lethargy Eyes: Eyes: Reports no additional eye complaints ENT: Reports system reviewed and no additional complaints, except as documented Cardiovascular: Cardiovascular: Reports as per HPI Respiratory: Respiratory: Reports dyspnea on exertion Gastrointestinal: Gastrointestinal: Reports no additional gastrointestinal complaints Musculoskeletal: Musculoskeletal: Reports no additional musculoskeletal complaints Integumentary/Breasts: Skin/Breast: Reports system reviewed and no additional complaints, except as docu Neurologic: Reports system reviewed and no additional complaints, except as documented Endocrine: Endocrine: Reports no additional endocrine complaints Hematologic/Lymphatic: Hematologic/Lymphatic: Reports no additional hematologic/lymphatic complaints Allergic/Immunologic: Allergic/Immunologic: Reports no additional allergic/immunologic complaints [facility] Past Medical History Medical History Cystitis Tremor of both hands Hypothyroidism CAD (coronary artery disease) Ascending aorta dilatation Myocardial infarction Hyperlipidemia Hypertension Alcoholism A-fib Closed rib fracture Family History Family History (Updated 07/31/25 @ 12:43 by Amber Murcia RN) Father Lung cancer Sibling Malignant neoplasm of prostate History of open heart surgery Social History Social History Smoking status: Never smoker Second hand tobacco smoke exposure: No Alcohol intake: current Drinks per week: 1 Substance use: never Substance use type: does not use Do You Feel Safe in your Home?: Yes Lack of Transportation: No Lack of Food: Never True Current Housing: I Have Housing Concerned About Future Housing: No Difficulty Paying Gas/Electric Bills: No Difficulty Paying for Meds: No Currently Unemployed: No Education: High School Diploma/GED Difficulty w/ Childcare or Family Care: No Spiritual care concerns: No Meds Home Medications and Allergies Home Medications ?Medication ?Instructions ?Recorded ?Confirmed ?Type duloxetine 30 mg capsule,delayed 30 mg PO DAILY 07/01/23 07/31/25 History release apixaban 5 mg tablet (Eliquis) 5 mg PO BID 10/25/24 07/31/25 History multivitamin with folic acid 400 1 tablet PO QAM #1 tablet 10/27/24 07/31/25 Rx mcg tablet (Thera) trazodone 50 mg tablet 50 mg PO HS PRN Insomnia #1 tablet 10/27/24 07/31/25 Rx metoprolol tartrate 25 mg tablet 50 mg PO Q12HR 03/06/25 07/31/25 History gabapentin 300 mg capsule 300 mg PO .DAILY HS Neuropathy 07/30/25 07/31/25 History acetaminophen 325 mg capsule 650 mg PO Q4H PRN pain 07/31/25 07/31/25 History Allergies Allergy/AdvReac Type Severity Reaction Status Date / Time magnesium sulfate AdvReac Intermediate Flushing Verified 07/31/25 12:59 Vital Signs Vital Signs - 24 hr 07/31/25 12:06 07/31/25 13:30 07/31/25 14:00 Temperature 36.4 C Pulse Rate 88 84 Respiratory Rate 18 Blood Pressure 136/84 Pulse Oximetry 96 Oxygen Delivery Room Air Exam Const: General: comfortable and no acute distress Other: Pleasant man appearing his stated age comfortable cooperative watching television no distress of any kind he is resting comfortably in bed with the head of the bed elevated at about 45? HENMT: Mouth: Yes moist mucous membranes Eyes: Sclera: sclerae normal Neck: Neck: supple and no JVD Resp: Effort & Inspection: normal respiratory effort Other: Scant basilar crackles are noted Cardio: Rate: regular rate Rhythm: abnormal rhythm irregularly irregular GI: GI Palp: Yes Soft to palpation Auscultation: normal bowel sounds Skin: General skin exam: normal color Neuro: Other: Alert and oriented x3 Extrem: Other: Good perfusion, no significant edema Results Labs and Meds Lab results: Patient Weight 07/31/25 23:59 Weight 76.8 kg
--- OUTSIDE RECORDS SUMMARY | 2025-07-31 15:45 | XMS_ITS | Clinical Summary ---
Author Organization [facility] Address [address] [place] [address] Care Team Providers Care Recreation Leader Name Role Phone Emeka Garcia MD Unavailable + [phone] Kain Childers MD Unavailable Kahlil Peres MD Primary Care Provider [phone] Melany Oseguera PA-C Unavailable + [phone] Allergies [...] systolic CHF (conges tive heart failure) ([facility]) 05/01/2025 Parotiditis 11/30/2024 NSTEMI (non-ST elevated myoc ardial infarction) ([facility]) 12/26/2023 Multiple fractures of ribs, bilateral, initial encounter for closed fracture 10/02/2023 Fall 10/02/2023 SOB (shortness of breath) on exertion 12/30/2022 Encounters Date Type Department Care Team Description 05/20/2025 2:45 PM CDT Office Visit [facility] [place] [address] [place] [address] Kain Childers MD Heart Problem 05/20/2025 1:48 PM CDT - 05/20/2025 11:59 PM CDT Hospital Encounter [place] [facility] [place] [place] [address] Kain Childers MD Discharge Disposition: Home or Self Care (Routine Discharge) 05/20/2025 Travel 05/17/2025 Telephone [facility] [address] [place] [address] Kain Childers MD Appointment Reminder 05/13/2025 Orders Only [facility] [address] [place] [address] Kain Childers MD 05/01/2025 12:30 PM CDT Office Visit [facility] [place] [address] [place] [address] Melany Oseguera PA-C Follow Up 05/01/2025 12:15 PM CDT - 05/01/2025 11:59 PM CDT Hospital Encounter [place] [facility] [place] [place] [address] Melany Oseguera PA-C Discharge Disposition: Home or [...] standard drink = 0.6 oz pure alcohol) [facility] Utilities Answer Date Recorded In [...] any time in the past 12 m [facility], were you homeless or living in a detention (including now)? Patient unable to answer 11/30/2024 Sex and Gender Information Value Date Recorded Sex Assigned at Male 12/04/2024 9:12 AM MAINTENANCE SUPERVISOR 2ND SHIFT Legal Sex Male 5:48 PM MAINTENANCE SUPERVISOR 2ND SHIFT Gender Identity Not on file Sexual Orientation Not on file Last Filed Vital Signs Vital Sign Reading Time Taken Comments Blood Pressure 153/88 05/20/2025 2:50 PM CDT Pulse 85 05/20/2025 2:44 PM CDT Temperature 36.5 C (97.7 F) 12/18/2024 8:01 AM MAINTENANCE SUPERVISOR 2ND SHIFT Respiratory Rate 16 05/20/2025 2:44 PM CDT Oxygen Saturation 98% 05/20/2025 2:44 PM CDT Inhaled Oxygen Concentration - - Weight 76.2 kg (168 lb) 05/20/2025 2:44 PM CDT Height 177.8 cm (5' 10) 05/20/2025 2:44 PM CDT Body Mass Index 24.11 05/20/2025 2:44 PM CDT Plan of Treatment Upcoming Encounters Date Type Department Care Team (Late st Contact Info) Description 11/19/2025 1:00 PM MAINTENANCE SUPERVISOR [address]ND [address] 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 05/20/2025 1:58 PM CDT Narrative [facility] - 05/20/2025 6:22 PM CDT [address] [place] [address] Test Date: 2025-05-20 [facility] Department: 3 Room: Gender: Male Manager Continuous Improvement: : 1955 Requested By: KAIN CHILDERS Order Number: [id number] Reading MD: Kain Childers Measurements Intervals [place] Rate: 86 P: 0 [place]: 0 QRS: [...] Procedure Note Kain Childers MD - 05/20/[address] [place] [address] Test Date: 2025-05-20 Pat Name: TERRI SALDIVAR Department: 3 Room: Gender: Male Manager Continuous Improvement: : 1955 Requested By: KAIN CHILDERS Order Number: [id number] Reading MD: Kain Childers Measurements Intervals [place] Rate: 86 P: 0 IL: 0 QRS: [...] Kain Childers MD ECG ORDERABLES Final Result [facility] * LIPID PANEL (12/27/2023 7:08 AM MAINTENANCE SUPERVISOR 2ND SHIFT) CHOLESTEROL 131 MG/DL 12/27/2023 8:36 AM [facility] Comment:DESIRABLE: <200 TRIGLYCERIDES 124 MG/DL 12/27/2023 8:36 AM [facility] Comment:<150 NORMAL HDL 54 >39 MG/DL 12/27/2023 8:36 AM [facility] LDL (CALCULATED) 52 MG/DL 12/27/19 8:36 AM [facility] Comment:<100 OPTIMAL VLDL CALCULATION 25 MG/DL 12/27/19 8:36 AM [facility] Comment:REFERENCE RANGE NOT ESTABLISHED CHOL/HDL RATIO 2.4 12/27/2023 8:36 AM [facility] Comment:REFERENCE RANGE NOT ESTABLISHED LDL/HDL 1.0 12/27/2023 8:36 AM [facility] Comment:REFERENCE RANGE NOT ESTABLISHED NON HDL CHOLESTEROL 77 MG/DL 12/27/2023 8:36 AM [facility] Comment:REFERENCE RANGE NOT ESTABLISHED 12/27/2023 7:08 AM MAINTENANCE SUPERVISOR 2ND SHIFT Arline Calixto MD LABORATORY Final Res ult [facility] [address] [place] [address], [id number] from Last 3 Months or Most Recently Relevant to Health Maintenance Insurance MEDICARE Advance Directives Documents on File Type Date Recorded Patient Optical Instrument Assembly Supervisor Expl anation Advance Directives and Living Will [...] 4:13 PM 12/31/2022 7:27 PM Care Teams Recreation Leader Relationship Specialty Start Date End Date Kahlil Peres MD [address] [phone] PCP - General FAMILY PRACTICE 11/30/24 Emeka Garcia MD [address] [place] [address] Consulting Physician CLINICAL CARDIAC ELECTROPHYSIOLOGY 03/30/23 Kain Childers MD [address] [place] [address] Consulting Physician CARDIOVASCULAR DISEASE 05/11/24 Melany Oseguera PA-C [address] [place] [address] Referring Physician PHYSICIAN MED SPEC 04/01/25
--- OUTSIDE RECORDS SUMMARY | 2025-07-31 15:45 | XMS_ITS | Encounter Summary ---
Author Organization [facility] Address [address] [place] [address] Care Team Providers Care Gas Regulator Repairer Helper Name Role Phone Emeka Garcia MD Unavailable + [phone] New Referring, Provider Primary Care Provider Un available Anne Kendrick MD Primary Care Provider [phone] Viv Seo MD Unavailable Kahlil Peres MD Primary Care Provider [phone] Melany Oseguera PA-C Unavailable + [phone] Encounter Details Date Type Department Care Team (Latest Contact Info) Description 10/02/2023 Hospital Encounter Tyler Bennett MD [address] [phone] Social History Tobacco Use Types Packs/Day Years Used Date Smoking Tobacco: Never Smokeless Tobacco: Never Alcohol Use Standard Drinks/Week Comments Yes 16.7 (1 standard drink = 0.6 oz pure alcohol) [facility] Utilities Answer Date Recorded In the past 12 months has e [email or web address], gas, oil, or water company threatened to [...] place to sleep or slept in a assisted (including now)? No 12/27/2023 Housing Stability Vital Sign Answer Varinder e Recorded In the last 12 months, was t here a time when you were not able to pay the mortgage or rent on time? No 11/30/2024 In the past 12 months, how m any times have you moved where you were living? 1 11/30/2024 At any time in the past 12 m [facility], were you homeless or living in a assisted (including now)? Patient unable to answer 11/30/2024 Sex and Gender Information Value Date Recorded Sex Assigned at Male 12/04/2024 9:12 AM FUEL CELL ENGINEER Legal Sex Male 5:48 PM FUEL CELL ENGINEER Gender Identity Not on file Sexual Orientation [...] 6:00 PM Reyes Gusman RN Active * [place] Suicide Severity Rating Scale (Screener/Recent Self-Report) Question [...] or making decisions? Yes 11/30/2024 6:47 PM FUEL CELL ENGINEER Ella Burch RN Active * Because of a physical, mental, or emotional condition, do you have serious difficulty concentrating, remembering, or making decisions? Answer Entry Date Author Status No 10/02/2023 2:18 PM FUEL CELL ENGINEER Raul Adler RN Active documented in this encounter Plan of Treatment Upcoming Encounters Date Type Department Care Team (Late st Contact Info) Description 11/19/2025 1:00 PM FUEL CELL ENGINEER Appointment [facility] [place] [facility] [address] [facility] [place] [address] Viv Seo MD [address] [place] [address] [phone] 11/27/2025 11:30 AM FUEL CELL ENGINEER Office Visit [facility] [address] [place] [address] Viv Seo MD [address] [place] [address] [phone] documented as of this encounter Goals Goal [...] Rule Out 12/19/2023 12/19/2023 12/19/2023 6:05 AM FUEL CELL ENGINEER COVID-19 Rule Out 12/26/2023 12/26/2023 12/26/2023 5:39 PM FUEL CELL ENGINEER documented as of this encounter Care Teams Gas Regulator Repairer Helper Relationship Specialty Start Date End Date New Referring, Provider PCP - General UNKNOWN PHYSICIAN SPECIALTY 10/02/23 10/04/23 Anne Kendrick MD [address] [facility] [place] [address] PCP - General FAMILY PRACTICE 10/05/23 11/29/24 Kahlil Peres MD [address] [place] [address] [phone] PCP - General FAMILY PRACTICE 11/30/24 Emeka Garcia MD [address] [place] [phone] Consulting Physician CLINICAL CARDIAC ELECTROPHYSIOLOGY 03/30/23 Viv Seo MD [address] [place] [address] Consulting Physician CARDIOVASCULAR DISEASE 05/11/24 Melany Oseguera PA-C [address] [place], [place] [phone] Referring Physician PHYSICIAN SOUND RANGING CREWMEMBER 04/01/25 documented as of this encounter
--- OUTSIDE RECORDS SUMMARY | 2025-07-31 15:45 | XMS_ITS | Encounter Summary ---
Author Organization [facility] Address [address] [place] [address] Care Team Providers Care Account Maintenance Representative Name Role Phone Emeka Garcia MD Unavailable [phone] Anne Kendrick MD Primary Care Provider [phone] Viv Seo MD Unavailable Kahlil Peres MD Primary Care Provider [phone] Melany Oseguera PA-C Unavailable + [phone] Encounter Details Date Type Department Care Team (Late st Contact Info) Description 01/02/2024 Hospital Follow-up Call [facility] [address] [place] [address] Dipika Moseley RN Social History Tobacco Use Types Packs/Day Years Used Date Smoking Tobacco: Never Smokeless Tobacco: Never Alcohol Use Standard Drinks/Week Comments Yes 0 (1 standard drink = 0.6 oz pur e alcohol) [facility] Utilities Answer Date Recorded In the [...] in a correction (including now)? No 12/27/2023 Sex and Gender Information Value Date Recorded Sex Assigned at Male 12/04/2024 9:12 AM PACKING ROOM WORKER Legal Sex Male 5:48 PM PACKING ROOM WORKER Gender Identity Not on file Sexual Orientation [...] Assessment Author Status Yes 12/26/2023 9:15 PM PACKING ROOM WORKER Em Miranda RN Active * Do you have difficulty dressing or bathing? Answer Date of Assessment Author Status No 12/26/2023 9:15 PM Em Spann RN Active * Because of a physical, mental, or emotional condition, do you have difficulty doing errands alone such as visiting a doctor's office or shopping? Answer Date of Assessment Author Status Yes 12/26/2023 9:15 PM PACKING ROOM WORKER Em Miranda RN Active documented as of [...] st Contact Info) Description 11/19/2025 1:00 PM PACKING ROOM WORKER Appointment [facility] [address] [place] [address] Viv Seo MD [address] [place], [place] [phone] 11/27/2025 11:30 AM PACKING ROOM WORKER [facility] [address] [place] [phone] Viv Seo MD [address] [place], [place] [phone] documented as of this encounter Goals Goal Patient Goal Type Associated Problems Recent Progress Patient-Stated? Author Patient will return to prior living situation and remain independent in ADLs upon discharge from hospital 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 RN documented as of this encounter Visit Diagnoses Not on filedocumented in this encounter Care Teams Account Maintenance Representative Relationship Specialty Start Date End Date Anne Kendrick MD [address] [place] [phone] PCP - General FAMILY PRACTICE 10/05/23 11/29/24 Kahlil Peres MD [address] [place] [address] PCP - General FAMILY PRACTICE 11/30/24 Emeka Garcia MD [address] [place] [address] Consulting Physician CLINICAL CARDIAC ELECTROPHYSIOLOGY 03/30/23 Viv Seo MD [address] [place], [place] [phone] Consulting Physician CARDIOVASCULAR DISEASE 05/11/24 Melany Oseguera PA-C [address] [place], [place] [address] Referring Physician PHYSICIAN DIRECTOR OF FOOD AND NUTRITION 04/01/25 documented as of this encounter
[2025-07-31] MEDS: APIXABAN 5 MG TABLET PO (16:56)
[2025-07-31] MEDS: SACUBITRIL/VALSARTAN 24-26 MG TABLET 1 TAB PO (20:23)
[2025-07-31] MEDS: GABAPENTIN 300 MG CAPSULE PO (20:23)
[2025-08-01] VITALS (12 sets, daily range): BP systolic 102–146; BP diastolic 59–88; PULSE 50–108; RESP 18–20; TEMP 36.4–36.8; O2SAT 91–100
[2025-08-01 04:04] LABS: Hematocrit 39.7 % (42.0-52.0); Hemoglobin 13.1 g/dL (14.0-18.0); Mean Corpuscular HGB Conc 33.0 g/dl (32-36); Mean Corpuscular Hemoglobin 33.1 pg (26-34); Mean Corpuscular Volume 100.3 fl (80-100); Platelet Count Result 192 k/mm3 (150-375); Red Blood Count 3.96 M/mm3 (4.6-6.20); White Blood Count 5.2 K/mm3 (4.5-10.0)
[2025-08-01 04:28] LABS: Anion Gap 6 mmol/L (4-12); Blood Urea Nitrogen 39 mg/dL (9-20); Calcium 9.2 mg/dL (8.4-10.2); Carbon Dioxide 25 mmol/L (22-30); Chloride 105 mmol/L (98-107); Estimated CRCL calculation 40 ml/min; Estimated Glomerular Filt Rate 43; Glucose 115 mg/dL (65-110); Magnesium 1.7 mg/dL (1.6-2.3); Potassium 3.6 mmol/L (3.4-5.0); Sodium 136 mmol/L (137-145)
[2025-08-01] MEDS: LEVOTHYROXINE SODIUM 125 MCG TABLET PO (05:58)
--- NOTE | 2025-08-01 08:00 | ECG_ITS ---
Test Date: 2025-08-01 09:49:47 Measurements Intervals [place] Rate: 100 P: 0 DC: 0 QRS: 212 QRSD: 102 T: 115 QT: 352 QTc: 455 Interpretive Statements ATRIAL FIBRILLATION WITH RAPID VENTRICULAR RESPONSE RIGHT AXIS DEVIATION [QRS AXIS > 100] POSSIBLE SEPTAL MYOCARDIAL INFARCTION , PROBABLY OLD [30 ms Q WAVE IN V1/V2] CONSIDER LIMB LEAD REVERSAL Compared to ECG 07/30/2025 07:26:17 Right-axis deviation now present Left ventricular hypertrophy no longer present Myocardial infarct finding still present Electronically Signed On 08-01-2025 11:27:01 CDT by Bebo Gutierrez M.D.
[2025-08-01] MEDS: EZETIMIBE 10 MG TABLET PO (09:10)
[2025-08-01] MEDS: APIXABAN 5 MG TABLET PO ×2 (09:10→21:01)
[2025-08-01] MEDS: SACUBITRIL/VALSARTAN 24-26 MG TABLET 1 TAB PO ×2 (09:10→21:01)
[2025-08-01] MEDS: METOPROLOL SUCCINATE EXT REL 100 MG TABCR PO (09:10)
[2025-08-01] MEDS: MULTIVITAMINS THERAPEUTIC TAB (*BKC) 1 TABLET PO (09:11)
[2025-08-01] MEDS: EMPAGLIFLOZIN 10 MG TABLET PO (09:11)
[2025-08-01] MEDS: FENOFIBRATE,MICRONIZED 48 MG TABLET PO (09:11)
[2025-08-01] MEDS: FUROSEMIDE INJ 40 MG/4 ML VIAL IV PUSH (09:11)
--- NOTE | 2025-08-01 09:36 | PM.PNCARD ---
Progress Note: A&P Assessment and Plan (1) CHF exacerbation: Qualifiers: Heart failure type: combined systolic and diastolic Qualified Code(s): I50.43 - Acute on chronic combined systolic (congestive) and diastolic (congestive) heart failure Code(s): I50.9 - Heart failure, unspecified Status: Acute Assessment and Plan: Severe cardiomyopathy with EF 25-30% Continue Entresto, ToprolXL, jardiance Will shift from IV furosemide to p.o. 40mg daily GDMT can be optimized as outpatient by his behavioral science chair at [facility] ordered Anticipate discharge tomorrow (2) A-fib: Qualifiers: Atrial fibrillation type: unspecified Qualified Code(s): I48.91 - Unspecified atrial fibrillation Code(s): I48.91 - Unspecified atrial fibrillation Status: Acute Assessment and Plan: Heart rate controlled Continue metoprolol succinate 100mg daily Continue apixaban 5mg b.i.d. (3) CAD (coronary artery disease): Code(s): I25.10 - Atherosclerotic heart disease of [place] coronary artery without angina pectoris Status: Acute Assessment and Plan: CAD with PCI 12 years ago. Not experiencing any anginal symptoms, however, his new decline in LV systolic function warrants some type of ischemic workup which can be pursued as an outpatient. Subjective Date/time seen: 08/01/25 09:36 Interval history: Cardiology follow up visit Date of service 08/01/2025: I feel 100% better. He denies shortness of breath, chest pain, palpitations, orthopnea. Review of Systems Constitutional: Constitutional: Reports lethargy Eyes: Eyes: Reports no additional eye complaints ENT: Reports system reviewed and no additional complaints, except as documented Cardiovascular: Cardiovascular: Reports as per HPI and Reports dyspnea on exertion Respiratory: Respiratory: Reports dyspnea on exertion Gastrointestinal: Gastrointestinal: Reports no additional gastrointestinal complaints Musculoskeletal: Musculoskeletal: Reports no additional musculoskeletal complaints Integumentary/Breasts: Skin/Breast: Reports system reviewed and no additional complaints, except as docu Neurologic: Reports system reviewed and no additional complaints, except as documented Endocrine: Endocrine: Reports no additional endocrine complaints Hematologic/Lymphatic: Hematologic/Lymphatic: Reports no additional hematologic/lymphatic complaints Allergic/Immunologic: Allergic/Immunologic: Reports no additional allergic/immunologic complaints Exam Const: General: comfortable and no acute distress HENMT: Mouth: Yes moist mucous membranes Eyes: Sclera: sclerae normal Neck: Neck: supple and no JVD Resp: Effort & Inspection: normal respiratory effort Other: Scant basilar crackles are noted Cardio: Rate: regular rate Rhythm: abnormal rhythm irregularly irregular GI: Auscultation: normal bowel sounds Skin: General skin exam: normal color Neuro: Other: Alert and oriented x3 Extrem: Other: No edema Objective Data Vital Signs Vital Signs: Vital Signs - 24 hr 07/31/25 12:06 07/31/25 13:30 07/31/25 14:00 Temperature 36.4 C Pulse Rate 88 84 Respiratory Rate 18 Blood Pressure 136/84 Pulse Oximetry 96 Oxygen Delivery Room Air 07/31/25 16:00 07/31/25 16:00 07/31/25 16:00 Temperature 37.0 C Pulse Rate 100 91 Respiratory Rate 20 Blood Pressure 129/71 Pulse Oximetry 97 Oxygen Delivery Room Air 07/31/25 18:00 07/31/25 20:00 07/31/25 20:08 Temperature 36.6 C Pulse Rate 85 90 88 Respiratory Rate 18 Blood Pressure 154/81 H Pulse Oximetry 99 Oxygen Delivery 07/31/25 22:00 08/01/25 00:00 08/01/25 00:38 Temperature 36.4 C Pulse Rate 98 102 H 79 Respiratory Rate 18 Blood Pressure 144/73 H Pulse Oximetry 98 Oxygen Delivery 08/01/25 02:00 08/01/25 04:00 08/01/25 04:25 Temperature 36.5 C Pulse Rate 94 87 85 Respiratory Rate 20 Blood Pressure 143/88 H Pulse Oximetry 99 Oxygen Delivery 08/01/25 08:00 08/01/25 09:10 Temperature 36.4 C Pulse Rate 104 H 105 H Respiratory Rate 18 Blood Pressure 146/80 H Pulse Oximetry 100 Oxygen Delivery Intake/Output Intake/Output: Intake & Output 07/29/25 07/30/25 07/31/25 08/01/25 23:59 23:59 23:59 23:59 Intake Total 1280 740 Output Total 450 1100 Balance 830 -360 Meds/Results Medications: Active Medications Generic Name Dose Route Start Last Admin Trade Name Freq PRN Reason Stop Dose Admin Acetaminophen 650 mg 07/31/25 22:20 Acetaminophen 325 Mg Tablet PO Q4H PRN Pain Allopurinol 100 mg 08/01/25 09:00 08/01/25 09:10 Allopurinol 100 Mg Tablet PO 100 mg Q12HR REBEKAH Administration Apixaban 5 mg 08/01/25 09:00 08/01/25 09:10 Apixaban 5 Mg Tablet PO 5 mg Q12HR REBEKAH Administration Atorvastatin Calcium 80 mg 08/01/25 21:00 Atorvastatin 40 Mg Tablet PO QHS REBEKAH Duloxetine HCl 30 mg 08/01/25 09:00 08/01/25 09:10 Duloxetine Hcl 30 Mg Capsule. PO 30 mg DAILY REBEKAH Administration Duloxetine HCl 60 mg 08/01/25 21:00 Duloxetine Hcl 60 Mg Capsule. PO HS REBEKAH Ezetimibe 10 mg 08/01/25 08:00 08/01/25 09:10 Ezetimibe 10 Mg Tablet PO 10 mg DAILY@0800 REBEKAH Administration Empagliflozin 10 mg 08/01/25 09:00 08/01/25 09:11 Empagliflozin 10 Mg Tablet PO 10 mg DAILY REBEKAH Administration Fenofibrate 48 mg 08/01/25 08:00 08/01/25 09:11 Fenofibrate,Micronized 48 Mg Tablet PO 48 mg DAILY@0800 REBEKAH Administration Furosemide 40 mg 08/01/25 09:00 08/01/25 09:11 Furosemide Inj 40 Mg/4 Ml Vial IV PUSH 40 mg BID REBEKAH Administration Gabapentin 300 mg 07/31/25 21:00 07/31/25 20:23 Gabapentin 300 Mg Capsule PO 300 mg HS [facility] Administration Levothyroxine Sodium 125 mcg 08/01/25 06:30 08/01/25 05:58 Levothyroxine Sodium 125 Mcg Tablet PO 125 mcg DAILY@0630 REBEKAH Administration Metoprolol Succinate 100 mg 08/01/25 09:00 08/01/25 09:10 Metoprolol Succinate Ext Rel 100 Mg Tabcr PO 100 mg QAM REBEKAH Administration Multivitamins Therapeutic 1 tablet 08/01/25 09:00 08/01/25 09:11 Multivitamins Therapeutic Tab (*Bkc) PO 1 tablet QAM REBEKAH Administration Nifedipine 30 mg 08/01/25 08:00 08/01/25 09:11 Nifedipine 30 Mg Tab.Er.24 PO 30 mg DAILY@0800 REBEKAH Administration Sacubitril/Valsartan 1 tab 07/31/25 21:00 08/01/25 09:10 Sacubitril/Valsartan 24-26 Mg Tablet PO 1 tab Q12HR REBEKAH Administration Trazodone HCl 50 mg 07/31/25 13:57 07/31/25 20:23 Trazodone Hcl 50 Mg Tablet PO 50 mg HS PRN Administration Insomnia Labs Labs: Laboratory Results - last 24 hr 08/01/25 03:52 WBC 5.2 RBC 3.96 L Hgb 13.1 L Hct 39.7 L MCV 100.3 H MCH 33.1 MCHC 33.0 RDW 13.9 Plt Count 192 MPV 9.5 Sodium 136 L Potassium 3.6 Chloride 105 Carbon Dioxide 25 Anion Gap 6 BUN 39 H Creatinine 1.59 H Estim Creat Clear Calc 40 Estimated GFR 43 L Glucose 115 H Calcium 9.2 Magnesium 1.7 Quality VTE Prophylaxis VTE prophylaxis: pharmacologic ordered
[2025-08-01] MEDS: SPIRONOLACTONE 25 MG TABLET PO (11:53)
--- NOTE | 2025-08-01 18:09 | PM.IMPN ---
Progress Note: A&P Assessment and Plan (1) CHF exacerbation: Qualifiers: Heart failure type: combined systolic and diastolic Qualified Code(s): I50.43 - Acute on chronic combined systolic (congestive) and diastolic (congestive) heart failure Code(s): I50.9 - Heart failure, unspecified Status: Acute Assessment and Plan: - BNP 56793 - most recent echo (07/30/25): LV systolic function is severely globally reduced with an EF of 25-30%, diastolic function abnormal, biatrial enlargement, valvular disease noted, severe pulmonary hypertension. See report for full details. - echo, previous (03/06/25): LV systolic function normal, estimated EF 60 65%, diastolic function normal, biatrial enlargement, valvular disease noted, severe pulmonary hypertension. - started on Lasix 40 mg b.i.d. - cardiology consulted, Tim PORTILLO. provided the following recs: Exchange metoprolol to metoprolol succinate Start Entresto and Jardiance for his low EF Monitor renal function and potassium closely Consider starting spironolactone if potassium remains normal Due to significant decline in systolic function, recommended ischemic workup outpatient, no current indication to complete inpatient -> patient is established with [facility], recommending contacting his establish providers - hold torsemide 10 mg daily - monitor I&Os and daily weights - trend renal function Since initiation of Lasix 40 mg b.i.d., the patient reports significant improvement in his shortness of breath. No peripheral edema noted on exam, no crackles appreciated on exam. (2) PAF (paroxysmal atrial fibrillation): Code(s): I48.0 - Paroxysmal atrial fibrillation Status: Chronic Assessment and Plan: - history of chronic AFib but for the past 7-8 years - on metoprolol tartrate 50 mg b.i.d. and Eliquis outpatient, due to significantly worsening systolic function/EF cardiology recommended transitioning patient's metoprolol to metoprolol succinate. Continue Eliquis. - telemetry monitoring (3) Hypothyroidism: Qualifiers: Hypothyroidism type: unspecified Qualified Code(s): E03.9 - Hypothyroidism, unspecified Code(s): E03.9 - Hypothyroidism, unspecified Status: Chronic Assessment and Plan: - TSH 1.85 on 07/30 - continue Synthroid (4) Hypertension: Qualifiers: Hypertension type: primary hypertension Qualified Code(s): I10 - Essential (primary) hypertension Code(s): I10 - Essential (primary) hypertension Status: Acute Assessment and Plan: - chronic, currently 154/81 - home medications: continue nifedipine, hold lisinopril as the patient was started on Entresto - monitor Plan patient with history of CAD s/p stents 12yrs ago, presented with shortness of breath at [facility] [place] was found to have signifcant decrease LV function and was transferred to the [facility], cardilogist was consulted and started on goal directed medical management, patient stats he is feeling much better compared to when he arrived, the canvas marker is recommending further evaluation of his cardiomyopathy and possibly cardiac cath, however patient has established canvas marker and he will follow with his canvas marker, patient will need LifeVest before discharging home, will monitor, Diet: Heart healthy GI Prophylaxis: N/a DVT Prophylaxis: Eliquis IV fluids: none Lines/Tubes: peripheral IV Code Status: full code Subjective Date/time seen: 08/01/25 18:09 Interval history: Shortness of Breath H&P-Narrative: 70 y/o M with PMH of CAD, hypothyroidism, myocardial infarction, hyperlipidemia, hypertension, alcoholism, and AFib on anticoagulation presented with shortness of breath. The patient originally presented to [facility] on 07/30 for further evaluation of shortness of breath. He reports onset approximately 3-4 days prior to arrival. He reported a significant worsening in his shortness of breath at 4:00 a.m.. Shortness of breath was accompanied by a intermittent nonproductive cough. He reports he shortness of breath was exacerbated by laying flat. His initial workup was concerning for a CHF exacerbation and he was admitted for IV diuresis. He was started on Lasix 40 mg b.i.d. and had reported overall improvement since initiation. An echo was completed which showed an EF of 25-30% with severe pulmonary hypertension. This is a drastic difference compared to his previous echo in February of 2025 which showed an EF of 60-65%. This prompted a transfer to [facility] for further evaluation via Cardiology. The patient currently reports mild upper airway congestion and neuropathy in his bilateral feet. Denies chest pain, fever, chills, body aches, nausea, vomiting, diarrhea, or abdominal pain. Initial VS at presentation: 97.6? F, HR 88, RR 18, 136/84, and 96% on RA. ED workup showed: No leukocytosis, no anemia, creatinine 1.76 and GFR 38 (similar to previous), no significant electrolyte derangements, glucose 168, initial troponin 0.032, BNP 83381, TSH 1.85. CXR showed chronic atelectasis/scarrin patient with history of CAD s/p stents 12yrs ago, presented with shortness of breath at [facility] [place] was found to have signifcant decrease LV function and was transferred to the [facility], cardilogist was consulted and started on goal directed medical management, patient stats he is feeling much better compared to when he arrived, the canvas marker is recommending further evaluation of his cardiomyopathy and possibly cardiac cath, however patient has established canvas marker and he will follow with his canvas marker, patient will need LifeVest before discharging home, will monitor, Review of Systems Review of Systems: All systems reviewed & are unremarkable except as noted in HPI and below Exam Narrative: Patient is comfortable, NAD HEENT: eyes are clear and none icteric LUNGS:CTA HEART: RR S1S2 ABD: BS+, Soft and nontender Lower extremities: no edema SKIN: nonjaundiced Neuro: grossly intact. Objective Data Vital Signs Vital Signs: Vital Signs - 24 hr 07/31/25 20:00 07/31/25 20:08 07/31/25 22:00 Temperature 36.6 C Pulse Rate 90 88 98 Respiratory Rate 18 Blood Pressure 154/81 H Pulse Oximetry 99 Oxygen Delivery 08/01/25 00:00 08/01/25 00:38 08/01/25 02:00 Temperature 36.4 C Pulse Rate 102 H 79 94 Respiratory Rate 18 Blood Pressure 144/73 H Pulse Oximetry 98 Oxygen Delivery 08/01/25 04:00 08/01/25 04:25 08/01/25 08:00 Temperature 36.5 C 36.4 C Pulse Rate 87 85 104 H Respiratory Rate 20 18 Blood Pressure 143/88 H 146/80 H Pulse Oximetry 99 100 Oxygen Delivery 08/01/25 08:00 08/01/25 08:00 08/01/25 09:10 Temperature Pulse Rate 105 H 91 105 H Respiratory Rate 18 Blood Pressure Pulse Oximetry 100 Oxygen Delivery Room Air 08/01/25 10:00 08/01/25 12:00 08/01/25 12:00 Temperature 36.8 C Pulse Rate 96 92 92 Respiratory Rate 18 18 Blood Pressure 125/77 Pulse Oximetry 91 91 Oxygen Delivery Room Air 08/01/25 12:00 08/01/25 13:24 08/01/25 16:00 Temperature 36.4 C L Pulse Rate 108 H 50 L Respiratory Rate 18 Blood Pressure 102/59 L Pulse Oximetry 94 Oxygen Delivery Room Air Intake/Output Intake/Output: Intake & Output 07/29/25 07/30/25 07/31/25 08/01/25 23:59 23:59 23:59 23:59 Intake Total 1280 1820 Output Total 450 1950 Balance 830 -130 Meds/Results Medications: Active Medications Generic Name Dose Route Start Last Admin Trade Name Freq PRN Reason Stop Dose Admin Acetaminophen 650 mg 07/31/25 22:20 Acetaminophen 325 Mg Tablet PO Q4H PRN Pain Allopurinol 100 mg 08/01/25 09:00 08/01/25 09:10 Allopurinol 100 Mg Tablet PO 100 mg Q12HR REBEKAH Administration Apixaban 5 mg 08/01/25 09:00 08/01/25 09:10 Apixaban 5 Mg Tablet PO 5 mg Q12HR REBEKAH Administration Atorvastatin Calcium 80 mg 08/01/25 21:00 Atorvastatin 40 Mg Tablet PO QHS REBEKAH Duloxetine HCl 30 mg 08/01/25 09:00 08/01/25 09:10 Duloxetine Hcl 30 Mg Capsule. PO 30 mg DAILY REBEKAH Administration Duloxetine HCl 60 mg 08/01/25 21:00 Duloxetine Hcl 60 Mg Capsule. PO HS REBEKAH Ezetimibe 10 mg 08/01/25 08:00 08/01/25 09:10 Ezetimibe 10 Mg Tablet PO 10 mg DAILY@0800 REBEKAH Administration Empagliflozin 10 mg 08/01/25 09:00 08/01/25 09:11 Empagliflozin 10 Mg Tablet PO 10 mg DAILY REBEKAH Administration Fenofibrate 48 mg 08/01/25 08:00 08/01/25 09:11 Fenofibrate,Micronized 48 Mg Tablet PO 48 mg DAILY@0800 REBEKAH Administration Furosemide 40 mg 08/02/25 09:00 Furosemide 40 Mg Tablet PO DAILY REBEKAH Gabapentin 300 mg 07/31/25 21:00 07/31/25 20:23 Gabapentin 300 Mg Capsule PO 300 mg HS REBEKAH Administration Levothyroxine Sodium 125 mcg 08/01/25 06:30 08/01/25 05:58 Levothyroxine Sodium 125 Mcg Tablet PO 125 mcg DAILY@0630 [facility] Administration Metoprolol Succinate 100 mg 08/01/25 09:00 08/01/25 09:10 Metoprolol Succinate Ext Rel 100 Mg Tabcr PO 100 mg QAM [facility] Administration Multivitamins Therapeutic 1 tablet 08/01/25 09:00 08/01/25 09:11 Multivitamins Therapeutic Tab (*B[facility]) [facility] Administration Sacubitril/Valsartan 1 tab 07/31/25 21:00 08/01/25 09:10 Sacubitril/Valsartan 24-26 Mg Tablet PO 1 tab Q12HR [facility] Administration Spironolactone 25 mg 08/01/25 11:20 08/01/25 11:53 Spironolactone 25 Mg Tablet PO 25 mg QAM [facility] Administration Trazodone HCl 50 mg 07/31/25 13:57 07/31/25 20:23 Trazodone Hcl 50 Mg Tablet PO 50 mg HS PRN Administration Insomnia Labs Labs: Laboratory Results - last 24 hr 08/01/25 03:52 WBC 5.2 RBC 3.96 L Hgb 13.1 L Hct 39.7 L MCV 100.3 H MCH 33.1 MCHC 33.0 RDW 13.9 Plt Count 192 MPV 9.5 Sodium 136 L Potassium 3.6 Chloride 105 Carbon Dioxide 25 Anion Gap 6 BUN 39 H Creatinine 1.59 H Estim Creat Clear Calc 40 Estimated GFR 43 L Glucose 115 H Calcium 9.2 Magnesium 1.7 Quality VTE Prophylaxis VTE prophylaxis: pharmacologic ordered
--- NOTE | 2025-08-01 18:49 | PC.NURSE ---
This patient, Claudio Devries, was transferred to [[id number] ] on 08/01/25 at 1849. Personal belongings sent with patient. Report given to [ CINDI Whitaker @ [phone]]. Appropriate documentation sent with patient.
[2025-08-01] MEDS: GABAPENTIN 300 MG CAPSULE PO (21:01)
[2025-08-01] MEDS: ATORVASTATIN 40 MG TABLET 80 MG PO (21:01)
[2025-08-01] MEDS: DULoxetine HCL 60 MG CAPSULE.DR PO (21:01)
[2025-08-02] VITALS (10 sets, daily range): BP systolic 108–130; BP diastolic 57–71; PULSE 62–88; RESP 18–20; TEMP 36.2–36.6; O2SAT 97–98
[2025-08-02 05:53] LABS: Hematocrit 41.5 % (42.0-52.0); Hemoglobin 13.4 g/dL (14.0-18.0); Mean Corpuscular HGB Conc 32.3 g/dl (32-36); Mean Corpuscular Hemoglobin 33.0 pg (26-34); Mean Corpuscular Volume 102.2 fl (80-100); Platelet Count Result 237 k/mm3 (150-375); Red Blood Count 4.06 M/mm3 (4.6-6.20); White Blood Count 6.5 K/mm3 (4.5-10.0)
[2025-08-02] MEDS: LEVOTHYROXINE SODIUM 125 MCG TABLET PO (05:53)
[2025-08-02 06:14] LABS: Anion Gap 8 mmol/L (4-12); Blood Urea Nitrogen 46 mg/dL (9-20); Calcium 9.3 mg/dL (8.4-10.2); Carbon Dioxide 24 mmol/L (22-30); Chloride 103 mmol/L (98-107); Estimated CRCL calculation 37 ml/min; Estimated Glomerular Filt Rate 39; Glucose 128 mg/dL (65-110); Magnesium 2.0 mg/dL (1.6-2.3); Potassium 3.7 mmol/L (3.4-5.0); Sodium 135 mmol/L (137-145)
[2025-08-02] MEDS: METOPROLOL SUCCINATE EXT REL 100 MG TABCR PO (08:35)
[2025-08-02] MEDS: EMPAGLIFLOZIN 10 MG TABLET PO (08:36)
[2025-08-02] MEDS: SPIRONOLACTONE 25 MG TABLET PO (08:36)
[2025-08-02] MEDS: FENOFIBRATE,MICRONIZED 48 MG TABLET PO (08:36)
[2025-08-02] MEDS: SACUBITRIL/VALSARTAN 24-26 MG TABLET 1 TAB PO ×2 (08:36→21:57)
[2025-08-02] MEDS: EZETIMIBE 10 MG TABLET PO (08:36)
[2025-08-02] MEDS: MULTIVITAMINS THERAPEUTIC TAB (*BKC) 1 TABLET PO (08:36)
[2025-08-02] MEDS: APIXABAN 5 MG TABLET PO ×2 (08:36→21:58)
--- NOTE | 2025-08-02 08:45 | PM.PNCARD ---
Progress Note: A&P Assessment and Plan (1) CHF exacerbation: Qualifiers: Heart failure type: combined systolic and diastolic Qualified Code(s): I50.43 - Acute on chronic combined systolic (congestive) and diastolic (congestive) heart failure Code(s): I50.9 - Heart failure, unspecified Status: Acute Assessment and Plan: Severe cardiomyopathy with EF 25-30% Continue Entresto, ToprolXL, jardiance Furosemide on hold because of bump in BUN/Scr GDMT can be optimized as outpatient by his pluck separator at [facility] in place Anticipate discharge tomorrow if BUN/Scr downtrending (2) A-fib: Qualifiers: Atrial fibrillation type: unspecified Qualified Code(s): I48.91 - Unspecified atrial fibrillation Code(s): I48.91 - Unspecified atrial fibrillation Status: Acute Assessment and Plan: Heart rate controlled Continue metoprolol succinate 100mg daily Continue apixaban 5mg b.i.d. (3) CAD (coronary artery disease): Code(s): I25.10 - Atherosclerotic heart disease of [place] coronary artery without angina pectoris Status: Acute Assessment and Plan: CAD with PCI 12 years ago. Not experiencing any anginal symptoms, however, his new decline in LV systolic function warrants some type of ischemic workup which can be pursued as an outpatient. Subjective Date/time seen: 08/02/25 08:45 Interval history: Cardiology follow up visit Date of service 08/01/2025: I feel 100% better. He denies shortness of breath, chest pain, palpitations, orthopnea. Date of service 08/02/2025: Continues to feel well today. No complaints. Review of Systems Constitutional: Constitutional: Reports lethargy Eyes: Eyes: Reports no additional eye complaints ENT: Reports system reviewed and no additional complaints, except as documented Cardiovascular: Cardiovascular: Reports as per HPI and Reports dyspnea on exertion Respiratory: Respiratory: Reports dyspnea on exertion Gastrointestinal: Gastrointestinal: Reports no additional gastrointestinal complaints Musculoskeletal: Musculoskeletal: Reports no additional musculoskeletal complaints Integumentary/Breasts: Skin/Breast: Reports system reviewed and no additional complaints, except as docu Neurologic: Reports system reviewed and no additional complaints, except as documented Endocrine: Endocrine: Reports no additional endocrine complaints Hematologic/Lymphatic: Hematologic/Lymphatic: Reports no additional hematologic/lymphatic complaints Allergic/Immunologic: Allergic/Immunologic: Reports no additional allergic/immunologic complaints Exam Const: General: comfortable and no acute distress Other: Pleasant man appearing his stated age comfortable cooperative watching television no distress of any kind he is resting comfortably in bed with the head of the bed elevated at about 45? HENMT: Mouth: Yes moist mucous membranes Eyes: Sclera: sclerae normal Neck: Neck: supple and no JVD Resp: Effort & Inspection: normal respiratory effort Auscultation: clear to auscultation bilaterally Cardio: Rate: regular rate Rhythm: abnormal rhythm irregularly irregular GI: Auscultation: normal bowel sounds Skin: General skin exam: normal color Neuro: Other: Alert and oriented x3 Extrem: Other: No edema Objective Data Vital Signs Vital Signs: Vital Signs - 24 hr 08/01/25 09:10 08/01/25 10:00 08/01/25 12:00 Temperature 36.8 C Pulse Rate 105 H 96 92 Respiratory Rate 18 Blood Pressure 125/77 Pulse Oximetry 91 Oxygen Delivery 08/01/25 12:00 08/01/25 12:00 08/01/25 13:24 Temperature Pulse Rate 92 108 H Respiratory Rate 18 Blood Pressure Pulse Oximetry 91 Oxygen Delivery Room Air Room Air 08/01/25 16:00 08/01/25 16:00 08/01/25 20:00 Temperature 36.4 C L Pulse Rate 50 L 84 72 Respiratory Rate 18 Blood Pressure 102/59 L Pulse Oximetry 94 Oxygen Delivery 08/01/25 20:00 08/01/25 20:33 08/02/25 00:00 Temperature 36.4 C Pulse Rate 81 86 Respiratory Rate 20 Blood Pressure 127/68 Pulse Oximetry 97 Oxygen Delivery Room Air 08/02/25 04:00 08/02/25 05:08 08/02/25 08:35 Temperature 36.5 C Pulse Rate 76 62 70 Respiratory Rate 18 Blood Pressure 108/57 L Pulse Oximetry 98 Oxygen Delivery Intake/Output Intake/Output: Intake & Output 07/30/25 07/31/25 08/01/25 08/02/25 23:59 23:59 23:59 23:59 Intake Total 1280 1820 390 Output Total 450 1950 Balance 830 -130 390 Meds/Results Medications: Active Medications Generic Name Dose Route Start Last Admin Trade Name Freq PRN Reason Stop Dose Admin Acetaminophen 650 mg 07/31/25 22:20 Acetaminophen 325 Mg Tablet PO Q4H PRN Pain Allopurinol 100 mg 08/01/25 09:00 08/02/25 08:36 Allopurinol 100 Mg Tablet PO 100 mg Q12HR REBEKAH Administration Apixaban 5 mg 08/01/25 09:00 08/02/25 08:36 Apixaban 5 Mg Tablet PO 5 mg Q12HR REBEKAH Administration Atorvastatin Calcium 80 mg 08/01/25 21:00 08/01/25 21:01 Atorvastatin 40 Mg Tablet PO 80 mg QHS REBEKAH Administration Duloxetine HCl 30 mg 08/01/25 09:00 08/02/25 08:35 Duloxetine Hcl 30 Mg Capsule. PO 30 mg DAILY REBEKAH Administration Duloxetine HCl 60 mg 08/01/25 21:00 08/01/25 21:01 Duloxetine Hcl 60 Mg Capsule. PO 60 mg HS REBEKAH Administration Ezetimibe 10 mg 08/01/25 08:00 08/02/25 08:36 Ezetimibe 10 Mg Tablet PO 10 mg DAILY@0800 REBEKAH Administration Empagliflozin 10 mg 08/01/25 09:00 08/02/25 08:36 Empagliflozin 10 Mg Tablet PO 10 mg DAILY REBEKAH Administration Fenofibrate 48 mg 08/01/25 08:00 08/02/25 08:36 Fenofibrate,Micronized 48 Mg Tablet PO 48 mg DAILY@0800 REBEKAH Administration Gabapentin 300 mg 07/31/25 21:00 08/01/25 21:01 Gabapentin 300 Mg Capsule PO 300 mg HS REBEKAH Administration Levothyroxine Sodium 125 mcg 08/01/25 06:30 08/02/25 05:53 Levothyroxine Sodium 125 Mcg Tablet PO 125 mcg DAILY@0630 REBEKAH Administration Metoprolol Succinate 100 mg 08/01/25 09:00 08/02/25 08:35 Metoprolol Succinate Ext Rel 100 Mg Tabcr PO 100 mg QAM REBEKAH Administration Multivitamins Therapeutic 1 tablet 08/01/25 09:00 08/02/25 08:36 Multivitamins Therapeutic Tab (*Bkc) PO 1 tablet QAM REBEKAH Administration Sacubitril/Valsartan 1 tab 07/31/25 21:00 08/02/25 08:36 Sacubitril/Valsartan 24-26 Mg Tablet PO 1 tab Q12HR REBEKAH Administration Spironolactone 25 mg 08/01/25 11:20 08/02/25 08:36 Spironolactone 25 Mg Tablet PO 25 mg QAM REBEKAH Administration Trazodone HCl 50 mg 07/31/25 13:57 08/01/25 21:02 Trazodone Hcl 50 Mg Tablet PO 50 mg HS PRN Administration Insomnia Labs Labs: Laboratory Results - last 24 hr 08/02/25 04:37 WBC 6.5 RBC 4.06 L Hgb 13.4 L Hct 41.5 L MCV 102.2 H MCH 33.0 MCHC 32.3 RDW 13.8 Plt Count 237 MPV 9.9 Sodium 135 L Potassium 3.7 Chloride 103 Carbon Dioxide 24 Anion Gap 8 BUN 46 H Creatinine 1.74 H Estim Creat Clear Calc 37 Estimated GFR 39 L Glucose 128 H Calcium 9.3 Magnesium 2.0 Quality VTE Prophylaxis VTE prophylaxis: pharmacologic ordered
--- NOTE | 2025-08-02 14:32 | P.PNIM_ITS ---
Progress Note: A&P Assessment and Plan (1) CHF exacerbation: Qualifiers: Heart failure type: combined systolic and diastolic Qualified Code(s): I50.43 - Acute on chronic combined systolic (congestive) and diastolic (congestive) heart failure Code(s): I50.9 - Heart failure, unspecified Status: Acute Assessment and Plan: - BNP 23770 - most recent echo (07/30/25): LV systolic function is severely globally reduced with an EF of 25-30%, diastolic function abnormal, biatrial enlargement, valvular disease noted, severe pulmonary hypertension. See report for full details. - echo, previous (03/06/25): LV systolic function normal, estimated EF 60 65%, diastolic function normal, biatrial enlargement, valvular disease noted, severe pulmonary hypertension. - started on Lasix 40 mg b.i.d. - cardiology consulted, Tim PORTILLO. provided the following recs: Exchange metoprolol to metoprolol succinate Start Entresto and Jardiance for his low EF Monitor renal function and potassium closely Consider starting spironolactone if potassium remains normal Due to significant decline in systolic function, recommended ischemic workup outpatient, no current indication to complete inpatient -> patient is established with [facility], recommending contacting his establish providers - hold torsemide 10 mg daily - monitor I&Os and daily weights - trend renal function Since initiation of Lasix 40 mg b.i.d., the patient reports significant improvement in his shortness of breath. No peripheral edema noted on exam, no crackles appreciated on exam. (2) PAF (paroxysmal atrial fibrillation): Code(s): I48.0 - Paroxysmal atrial fibrillation Status: Chronic Assessment and Plan: - history of chronic AFib but for the past 7-8 years - on metoprolol tartrate 50 mg b.i.d. and Eliquis outpatient, due to significantly worsening systolic function/EF cardiology recommended transitioning patient's metoprolol to metoprolol succinate. Continue Eliquis. - telemetry monitoring (3) Hypothyroidism: Qualifiers: Hypothyroidism type: unspecified Qualified Code(s): E03.9 - Hypothyroidism, unspecified Code(s): E03.9 - Hypothyroidism, unspecified Status: Chronic Assessment and Plan: - TSH 1.85 on 07/30 - continue Synthroid (4) Hypertension: Qualifiers: Hypertension type: primary hypertension Qualified Code(s): I10 - Essential (primary) hypertension Code(s): I10 - Essential (primary) hypertension Status: Acute Assessment and Plan: - chronic, currently 154/81 - home medications: continue nifedipine, hold lisinopril as the patient was started on Entresto - monitor Plan patient with history of CAD s/p stents 12yrs ago, presented with shortness of breath at [facility] was found to have significant decrease LV function and was transferred to the [facility], point of sale associate was consulted and started on goal directed medical management, patient stats he is feeling much better compared to when he arrived, the point of sale associate is recommending further evaluation of his cardiomyopathy and possibly cardiac cath, however patient has established point of sale associate and he will follow with his point of sale associate, Today patient is fitted with LifeVest, seen by point of sale associate patient being treated for cardiomyopathy with GDMT and his Scr is rising, will monitor to make sure it is trending down, further recommendation to follow. GI Prophylaxis: N/a DVT Prophylaxis: Eliquis IV fluids: none Lines/Tubes: peripheral IV Code Status: full code Subjective Date/time seen: 08/02/25 14:32 Interval history: Shortness of Breath H&P-Narrative: 70 y/o M with PMH of CAD, hypothyroidism, myocardial infarction, hyperlipidemia, hypertension, alcoholism, and AFib on anticoagulation presented with shortness of breath. The patient originally presented to [facility] on 07/30 for further evaluation of shortness of breath. He reports onset approximately 3-4 days prior to arrival. He reported a significant worsening in his shortness of breath at 4:00 a.m.. Shortness of breath was accompanied by a intermittent nonproductive cough. He reports he shortness of breath was exacerbated by laying flat. His initial workup was concerning for a CHF exacerbation and he was admitted for IV diuresis. He was started on Lasix 40 mg b.i.d. and had reported overall improvement since initiation. An echo was completed which showed an EF of 25- 30% with severe pulmonary hypertension. This is a drastic difference compared to his previous echo in February of 2025 which showed an EF of 60-65%. This prompted a transfer to [facility] for further evaluation via Cardiology. The patient currently reports mild upper airway congestion and neuropathy in his bilateral feet. Denies chest pain, fever, chills, body aches, nausea, vomiting, diarrhea, or abdominal pain. Initial VS at presentation: 97.6? F, HR 88, RR 18, 136/84, and 96% on RA. ED workup showed: No leukocytosis, no anemia, creatinine 1.76 and GFR 38 (similar to previous), no significant electrolyte derangements, glucose 168, initial troponin 0.032, BNP 24553, TSH 1.85. CXR showed chronic atelectasis/scarrin patient with history of CAD s/p stents 12yrs ago, presented with shortness of breath at [facility] was found to have significant decrease LV function and was transferred to the [facility], point of sale associate was consulted and started on goal directed medical management, patient stats he is feeling much better compared to when he arrived, the point of sale associate is recommending further evaluation of his cardiomyopathy and possibly cardiac cath, however patient has established point of sale associate and he will follow with his point of sale associate, Today patient is fitted with LifeVest, seen by point of sale associate patient being treated for cardiomyopathy with GDMT and his Scr is rising, will monitor to make sure it is trending down, further recommendation to follow. Review of Systems Review of Systems: All systems reviewed & are unremarkable except as noted in HPI and below Exam Narrative: Patient is comfortable, NAD HEENT: eyes are clear and none icteric LUNGS:CTA HEART: RR S1S2 ABD: BS+, Soft and nontender Lower extremities: no edema SKIN: nonjaundiced Neuro: grossly intact. Objective Data Vital Signs Vital Signs: Vital Signs - 24 hr 08/01/25 16:00 08/01/25 16:00 08/01/25 20:00 Temperature 36.4 C L Pulse Rate 50 L 84 72 Respiratory Rate 18 Blood Pressure 102/59 L Pulse Oximetry 94 Oxygen Delivery 08/01/25 20:00 08/01/25 20:33 08/02/25 00:00 Temperature 36.4 C Pulse Rate 81 86 Respiratory Rate 20 Blood Pressure 127/68 Pulse Oximetry 97 Oxygen Delivery Room Air 08/02/25 04:00 08/02/25 05:08 08/02/25 08:35 Temperature 36.5 C Pulse Rate 76 62 70 Respiratory Rate 18 Blood Pressure 108/57 L Pulse Oximetry 98 Oxygen Delivery 08/02/25 13:45 Temperature 36.2 C L Pulse Rate 77 Respiratory Rate 18 Blood Pressure 129/71 Pulse Oximetry 97 Oxygen Delivery Intake/Output Intake/Output: Intake & Output 07/30/25 07/31/25 08/01/25 08/02/25 23:59 23:59 23:59 23:59 Intake Total 1280 1820 870 Output Total 450 1950 825 Balance 830 -130 45 Meds/Results Medications: Active Medications Generic Name Dose Route Start Last Admin Trade Name Freq PRN Reason Stop Dose Admin Acetaminophen 650 mg 07/31/25 22:20 Acetaminophen 325 Mg Tablet PO Q4H PRN Pain Allopurinol 100 mg 08/01/25 09:00 08/02/25 08:36 Allopurinol 100 Mg Tablet PO 100 mg Q12HR REBEKAH Administration Apixaban 5 mg 08/01/25 09:00 08/02/25 08:36 Apixaban 5 Mg Tablet PO 5 mg Q12HR REBEKAH Administration Atorvastatin Calcium 80 mg 08/01/25 21:00 08/01/25 21:01 Atorvastatin 40 Mg Tablet PO 80 mg QHS REBEKAH Administration Duloxetine HCl 30 mg 08/01/25 09:00 08/02/25 08:35 Duloxetine Hcl 30 Mg Capsule.Dr PO 30 mg DAILY REBEKAH Administration Duloxetine HCl 60 mg 08/01/25 21:00 08/01/25 21:01 Duloxetine Hcl 60 Mg Capsule.Dr PO 60 mg HS REBEKAH Administration Ezetimibe 10 mg 08/01/25 08:00 08/02/25 08:36 Ezetimibe 10 Mg Tablet PO 10 mg DAILY@0800 REBEKAH Administration Empagliflozin 10 mg 08/01/25 09:00 08/02/25 08:36 Empagliflozin 10 Mg Tablet PO 10 mg DAILY REBEKAH Administration Fenofibrate 48 mg 08/01/25 08:00 08/02/25 08:36 Fenofibrate,Micronized 48 Mg Tablet PO 48 mg DAILY@0800 REBEKAH Administration Gabapentin 300 mg 07/31/25 21:00 08/01/25 21:01 Gabapentin 300 Mg Capsule PO 300 mg HS REBEKAH Administration Levothyroxine Sodium 125 mcg 08/01/25 06:30 08/02/25 05:53 Levothyroxine Sodium 125 Mcg Tablet PO 125 mcg DAILY@0630 REBEKAH Administration Metoprolol Succinate 100 mg 08/01/25 09:00 08/02/25 08:35 Metoprolol Succinate Ext Rel 100 Mg Tabcr PO 100 mg QAM REBEKAH Administration Multivitamins Therapeutic 1 tablet 08/01/25 09:00 08/02/25 08:36 Multivitamins Therapeutic Tab (*Bkc) PO 1 tablet QAM [facility] Administration Sacubitril/Valsartan 1 tab 07/31/25 21:00 08/02/25 08:36 Sacubitril/Valsartan 24-26 Mg Tablet PO 1 tab Q12HR REBEKAH Administration Spironolactone 25 mg 08/01/25 11:20 08/02/25 08:36 Spironolactone 25 Mg Tablet PO 25 mg QAM REBEKAH Administration Trazodone HCl 50 mg 07/31/25 13:57 08/01/25 21:02 Trazodone Hcl 50 Mg Tablet PO 50 mg HS PRN Administration Insomnia Labs Labs: Laboratory Results - last 24 hr 08/02/25 04:37 WBC 6.5 RBC 4.06 L Hgb 13.4 L Hct 41.5 L MCV 102.2 H MCH 33.0 MCHC 32.3 RDW 13.8 Plt Count 237 MPV 9.9 Sodium 135 L Potassium 3.7 Chloride 103 Carbon Dioxide 24 Anion Gap 8 BUN 46 H Creatinine 1.74 H Estim Creat Clear Calc 37 Estimated GFR 39 L Glucose 128 H Calcium 9.3 Magnesium 2.0 Quality VTE Prophylaxis VTE prophylaxis: pharmacologic ordered
[2025-08-02] MEDS: GABAPENTIN 300 MG CAPSULE PO (21:56)
[2025-08-02] MEDS: DULoxetine HCL 60 MG CAPSULE.DR PO (21:57)
[2025-08-02] MEDS: ATORVASTATIN 40 MG TABLET 80 MG PO (21:58)
[2025-08-02] MEDS: ACETAMINOPHEN 325 MG TABLET 650 MG PO (21:58)
[2025-08-03] VITALS: PULSE 77
[2025-08-03 04:00] VITALS: PULSE 62
[2025-08-03 04:01] VITALS: BP 120/72; PULSE 72; RESP 18; TEMP 36.4; O2SAT 93
[2025-08-03 05:04] LABS: Hematocrit 41.1 % (42.0-52.0); Hemoglobin 13.3 g/dL (14.0-18.0); Mean Corpuscular HGB Conc 32.4 g/dl (32-36); Mean Corpuscular Hemoglobin 33.1 pg (26-34); Mean Corpuscular Volume 102.2 fl (80-100); Platelet Count Result 244 k/mm3 (150-375); Red Blood Count 4.02 M/mm3 (4.6-6.20); White Blood Count 6.1 K/mm3 (4.5-10.0)
[2025-08-03 05:17] LABS: Anion Gap 8 mmol/L (4-12); Blood Urea Nitrogen 47 mg/dL (9-20); Calcium 9.2 mg/dL (8.4-10.2); Carbon Dioxide 23 mmol/L (22-30); Chloride 105 mmol/L (98-107); Estimated CRCL calculation 38 ml/min; Estimated Glomerular Filt Rate 41; Glucose 117 mg/dL (65-110); Magnesium 2.2 mg/dL (1.6-2.3); Potassium 4.1 mmol/L (3.4-5.0); Sodium 136 mmol/L (137-145)
[2025-08-03] MEDS: LEVOTHYROXINE SODIUM 125 MCG TABLET PO (05:39)
[2025-08-03 08:00] VITALS: PULSE 73
[2025-08-03] MEDS: SPIRONOLACTONE 25 MG TABLET PO (10:09)
[2025-08-03] MEDS: MULTIVITAMINS THERAPEUTIC TAB (*BKC) 1 TABLET PO (10:09)
[2025-08-03 10:10] VITALS: PULSE 72
[2025-08-03] MEDS: EMPAGLIFLOZIN 10 MG TABLET PO (10:10)
[2025-08-03] MEDS: METOPROLOL SUCCINATE EXT REL 100 MG TABCR PO (10:10)
[2025-08-03] MEDS: FENOFIBRATE,MICRONIZED 48 MG TABLET PO (10:10)
[2025-08-03] MEDS: APIXABAN 5 MG TABLET PO (10:10)
[2025-08-03] MEDS: SACUBITRIL/VALSARTAN 24-26 MG TABLET 1 TAB PO (10:10)
[2025-08-03] MEDS: EZETIMIBE 10 MG TABLET PO (10:10)
--- NOTE | 2025-08-03 11:11 | P.PNCA_ITS ---
Progress Note: A&P Assessment and Plan (1) CHF exacerbation: Qualifiers: Heart failure type: combined systolic and diastolic Qualified Code(s): I50.43 - Acute on chronic combined systolic (congestive) and diastolic (congestive) heart failure Code(s): I50.9 - Heart failure, unspecified Status: Acute Assessment and Plan: Severe cardiomyopathy with EF 25-30% * Continue Entresto, ToprolXL, jardiance * Creatinine improved at 1.67 today. Add back diuretic as an outpatient * GDMT can be optimized as outpatient by his access analyst at [facility] * LifeVest in place * okay for discharge. Follow-up with access analyst at [facility] (2) A-fib: Qualifiers: Atrial fibrillation type: unspecified Qualified Code(s): I48.91 - Unspecified atrial fibrillation Code(s): I48.91 - Unspecified atrial fibrillation Status: Acute Assessment and Plan: Heart rate controlled * Continue metoprolol succinate 100mg daily * Continue apixaban 5mg b.i.d. (3) CAD (coronary artery disease): Code(s): I25.10 - Atherosclerotic heart disease of [place] coronary artery without angina pectoris Status: Acute Assessment and Plan: CAD with PCI 12 years ago. Not experiencing any anginal symptoms, however, his new decline in LV systolic function warrants some type of ischemic workup which can be pursued as an outpatient. Subjective Date/time seen: 08/03/25 11:11 Interval history: Cardiology follow up visit Date of service 08/01/2025: I feel 100% better. He denies shortness of breath, chest pain, palpitations, orthopnea. Date of service 08/02/2025: Continues to feel well today. No complaints. Date of service: 08/03/2025: He has no chest pain. Breathing much better. Review of Systems Constitutional: Constitutional: Reports lethargy Eyes: Eyes: Reports no additional eye complaints ENT: Reports system reviewed and no additional complaints, except as documented Cardiovascular: Cardiovascular: Reports as per HPI and Denies chest pain Respiratory: Respiratory: Reports dyspnea on exertion Gastrointestinal: Gastrointestinal: Reports no additional gastrointestinal complaints Musculoskeletal: Musculoskeletal: Reports no additional musculoskeletal complaints Integumentary/Breasts: Skin/Breast: Reports system reviewed and no additional complaints, except as docu Neurologic: Reports system reviewed and no additional complaints, except as documented Endocrine: Endocrine: Reports no additional endocrine complaints Hematologic/Lymphatic: Hematologic/Lymphatic: Reports no additional hematologic/lymphatic complaints Allergic/Immunologic: Allergic/Immunologic: Reports no additional allergic/immunologic complaints Exam Const: General: comfortable and no acute distress Other: Pleasant man appearing his stated age comfortable cooperative watching television no distress of any kind he is resting comfortably in bed with the head of the bed elevated at about 45? HENMT: Mouth: Yes moist mucous membranes Eyes: Sclera: sclerae normal Neck: Neck: supple and no JVD Resp: Effort & Inspection: normal respiratory effort Auscultation: clear to auscultation bilaterally Other: Scant basilar crackles are noted Cardio: Rate: regular rate Rhythm: abnormal rhythm irregularly irregular GI: Auscultation: normal bowel sounds Skin: General skin exam: normal color Neuro: Other: Alert and oriented x3 Extrem: Other: No edema Objective Data Vital Signs Vital Signs: Vital Signs - 24 hr 08/02/25 12:00 08/02/25 13:45 08/02/25 16:00 Temperature 36.2 C L Pulse Rate 84 77 88 Respiratory Rate 18 Blood Pressure 129/71 Pulse Oximetry 97 Oxygen Delivery 08/02/25 20:00 08/02/25 20:00 08/02/25 20:44 Temperature 36.6 C Pulse Rate 78 77 Respiratory Rate 20 Blood Pressure 130/69 Pulse Oximetry 97 Oxygen Delivery Room Air 08/03/25 00:00 08/03/25 04:00 08/03/25 04:01 Temperature 36.4 C Pulse Rate 77 62 72 Respiratory Rate 18 Blood Pressure 120/72 Pulse Oximetry 93 Oxygen Delivery 08/03/25 10:10 Temperature Pulse Rate 72 Respiratory Rate Blood Pressure Pulse Oximetry Oxygen Delivery Intake/Output Intake/Output: Intake & Output 07/31/25 08/01/25 08/02/25 08/03/25 23:59 23:59 23:59 23:59 Intake Total 1280 1820 1510 490 Output Total 450 1950 825 3 Balance 830 -130 685 487 Meds/Results Medications: Active Medications Generic Name Dose Route Start Last Admin Trade Name Freq PRN Reason Stop Dose Admin Acetaminophen 650 mg 07/31/25 22:20 08/02/25 21:58 Acetaminophen 325 Mg Tablet PO 650 mg Q4H PRN Administration Pain Allopurinol 100 mg 08/01/25 09:00 08/03/25 10:10 Allopurinol 100 Mg Tablet PO 100 mg Q12HR REBEKAH Administration Apixaban 5 mg 08/01/25 09:00 08/03/25 10:10 Apixaban 5 Mg Tablet PO 5 mg Q12HR REBEKAH Administration Atorvastatin Calcium 80 mg 08/01/25 21:00 08/02/25 21:58 Atorvastatin 40 Mg Tablet PO 80 mg QHS REBEKAH Administration Duloxetine HCl 30 mg 08/01/25 09:00 08/03/25 10:10 Duloxetine Hcl 30 Mg Capsule.Dr PO 30 mg DAILY REBEKAH Administration Duloxetine HCl 60 mg 08/01/25 21:00 08/02/25 21:57 Duloxetine Hcl 60 Mg Capsule.Dr PO 60 mg HS REBEKAH Administration Ezetimibe 10 mg 08/01/25 08:00 08/03/25 10:10 Ezetimibe 10 Mg Tablet PO 10 mg DAILY@0800 REBEKAH Administration Empagliflozin 10 mg 08/01/25 09:00 08/03/25 10:10 Empagliflozin 10 Mg Tablet PO 10 mg DAILY REBEKAH Administration Fenofibrate 48 mg 08/01/25 08:00 08/03/25 10:10 Fenofibrate,Micronized 48 Mg Tablet PO 48 mg DAILY@0800 REBEKAH Administration Gabapentin 300 mg 07/31/25 21:00 08/02/25 21:56 Gabapentin 300 Mg Capsule PO 300 mg HS REBEKAH Administration Levothyroxine Sodium 125 mcg 08/01/25 06:30 08/03/25 05:39 Levothyroxine Sodium 125 Mcg Tablet PO 125 mcg DAILY@0630 REBEKAH Administration Metoprolol Succinate 100 mg 08/01/25 09:00 08/03/25 10:10 Metoprolol Succinate Ext Rel 100 Mg Tabcr PO 100 mg QAM REBEKAH Administration Multivitamins Therapeutic 1 tablet 08/01/25 09:00 08/03/25 10:09 Multivitamins Therapeutic Tab (*Bkc) PO 1 tablet QAM REBEKAH Administration Sacubitril/Valsartan 1 tab 07/31/25 21:00 08/03/25 10:10 Sacubitril/Valsartan 24-26 Mg Tablet PO 1 tab Q12HR REBEKAH Administration Spironolactone 25 mg 08/01/25 11:20 08/03/25 10:09 Spironolactone 25 Mg Tablet PO 25 mg QAM REBEKAH Administration Trazodone HCl 50 mg 07/31/25 13:57 08/02/25 21:57 Trazodone Hcl 50 Mg Tablet PO 50 mg HS PRN Administration Insomnia Labs Labs: Laboratory Results - last 24 hr 08/03/25 04:25 WBC 6.1 RBC 4.02 L Hgb 13.3 L Hct 41.1 L MCV 102.2 H MCH 33.1 MCHC 32.4 RDW 13.8 Plt Count 244 MPV 9.7 Sodium 136 L Potassium 4.1 Chloride 105 Carbon Dioxide 23 Anion Gap 8 BUN 47 H Creatinine 1.67 H Estim Creat Clear Calc 38 Estimated GFR 41 L Glucose 117 H Calcium 9.2 Magnesium 2.2
--- NOTE | 2025-08-03 11:49 | P.DS_ITS ---
DS: Admitting Diagnosis Discharge Date 08/03/25 Admitting Diagnosis Shortness of Breath DS: Discharge Diagnosis Discharge Diagnosis (1) CHF exacerbation: Qualifiers: Heart failure type: combined systolic and diastolic Qualified Code(s): I50.43 - Acute on chronic combined systolic (congestive) and diastolic (con gestive) heart failure Code(s): I50.9 - Heart failure, unspecified Status: Acute Assessment and Plan: - BNP 24817 - most recent echo (07/30/25): LV systolic function is severely globally reduced with an EF of 25-30%, diastolic function abnormal, biatrial enlargement, valvular disease noted, severe pulmonary hypertension. See report for full details. - echo, previous (03/06/25): LV systolic function normal, estimated EF 60 65%, diastolic function normal, biatrial enlargement, valvular disease noted, severe pulmonary hypertension. - started on Lasix 40 mg b.i.d. - cardiology consulted, Tim PORTILLO. provided the following recs: Exchange metoprolol to metoprolol succinate Start Entresto and Jardiance for his low EF Monitor renal function and potassium closely Consider starting spironolactone if potassium remains normal Due to significant decline in systolic function, recommended ischemic workup outpatient, no current indication to complete inpatient -> patient is established with [facility], recommending contacting his [facility] providers - hold torsemide 10 mg daily - monitor I&Os and daily weights - trend renal function Since initiation of Lasix 40 mg b.i.d., the patient reports significant improvement in his shortness of breath. No peripheral edema noted on exam, no crackles appreciated on exam. (2) PAF (paroxysmal atrial fibrillation): Code(s): I48.0 - Paroxysmal atrial fibrillation Status: Chronic Assessment and Plan: - history of chronic AFib but for the past 7-8 years - on metoprolol tartrate 50 mg b.i.d. and Eliquis outpatient, due to significantly worsening systolic function/EF cardiology recommended transitioning patient's metoprolol to metoprolol succinate. Continue Eliquis. - telemetry monitoring (3) Hypothyroidism: Qualifiers: Hypothyroidism type: unspecified Qualified Code(s): E03.9 - Hypothyroidism, unspecified Code(s): E03.9 - Hypothyroidism, unspecified Status: Chronic Assessment and Plan: - TSH 1.85 on 07/30 - continue Synthroid (4) Hypertension: Qualifiers: Hypertension type: primary hypertension Qualified Code(s): I10 - Essential (primary) hypertension Code(s): I10 - Essential (primary) hypertension Status: Acute Assessment and Plan: - chronic, currently 154/81 - home medications: continue nifedipine, hold lisinopril as the patient was started on Entresto - monitor Plan patient with history of CAD s/p stents 12yrs ago, presented with shortness of breath at [facility] was found to have significant decrease LV function and was transferred to the [facility], intensive care nurse was consulted and started on goal directed medical management, patient stats he is feeling much better compared to when he arrived, the intensive care nurse is recommending further evaluation of his cardiomyopathy and possibly cardiac cath, however patient has established intensive care nurse and he will follow with his intensive care nurse, Today patient is fitted with LifeVest, seen by intensive care nurse patient being treated for cardiomyopathy with GDMT and his Scr is rising, will monitor to make sure it is trending down, further recommendation to follow. GI Prophylaxis: N/a DVT Prophylaxis: Eliquis IV fluids: none Lines/Tubes: peripheral IV Code Status: full code DS: Summary Hospital Course Hospital Course: patient with history of CAD s/p stents 12yrs ago, presented with shortness of breath at [facility] was found to have significant decrease LV function and was transferred to the [facility], intensive care nurse was consulted and started on goal directed medical management, patient stats he is feeling much better compared to when he arrived, the intensive care nurse is recommending further evaluation of his cardiomyopathy and possibly cardiac cath, however patient has established intensive care nurse and he will follow with his intensive care nurse,patient is fitted with LifeVest, seen by intensive care nurse patient being treated for cardiomyopathy with GDMT and his Scr is rising, will monitor to make sure it is trending down, further recommendation to follow. patient was seen by the intensive care nurse, patient Scr is trending down and tolerating his medications, denies and CP or SOB, clinically stable, will discharge home today to follow up with primary intensive care nurse as soon as possible. Time Spent with Patient Time attestation: Total time spent providing and/or coordinating discharge services: Exam Narrative: Patient is comfortable, NAD HEENT: eyes are clear and none icteric LUNGS:CTA HEART: RR S1S2 ABD: BS+, Soft and nontender Lower extremities: no edema SKIN: nonjaundiced Neuro: grossly intact. DS: Data Data Completed and Pending Labs on day of discharge: Labs from last 24 hours 08/03/25 04:25 WBC 6.1 RBC 4.02 L Hgb 13.3 L Hct 41.1 L MCV 102.2 H MCH 33.1 MCHC 32.4 RDW 13.8 Plt Count 244 MPV 9.7 Sodium 136 L Potassium 4.1 Chloride 105 Carbon Dioxide 23 Anion Gap 8 BUN 47 H Creatinine 1.67 H Estim Creat Clear Calc 38 Estimated GFR 41 L Glucose 117 H Calcium 9.2 Magnesium 2.2 Discharge Plan Discharge Attending physician on discharge: Maria M Braun Consulting providers: Alexis Dumont Discharging Clinician: Maria M Braun Patient Disposition: Home Activity: as tolerated Diet: heart healthy Discharge Instructions: patient to follow up with his primary intensive care nurse and primary care provider as soon possible, patient is instructed if any symptoms redevelop to go to nearest ER Patient Instructions: Antibiotic Form, Furosemide (By mouth), Apixaban (By mouth), Empagliflozin (By mouth), Sacubitril/Valsartan (By mouth), Heart Failure (GEN) Patient Language: Welsh Stand Alone Forms: General Discharge Information Follow-up/Referrals: Anne Kendrick MD [Primary Care Provider, [facility]] Discharge Medications: New metoprolol succinate [Toprol XL] 100 mg Tablet Extended Release 24 Hr 100 mg PO QAM Qty: 30 0RF spironolactone 25 mg Tablet 25 mg PO QAM Qty: 30 0RF Jardiance 10 mg Tablet 10 mg PO DAILY Qty: 30 0RF sacubitril-valsartan [Entresto] 24-26 mg Tablet 1 tab PO Q12HR Qty: 60 0RF Continued duloxetine 30 mg capsule,delayed release(DR/EC) 30 mg PO DAILY Eliquis 5 mg Tablet 5 mg PO BID Patient Comments: pt gets eliquis samples from Dr. Anne Kendrick's office ([phone], ext [phone]). has been taking since 03/2023 per momo trazodone 50 mg Tablet 50 mg PO HS PRN (Reason: Insomnia) Qty: 1 0RF Patient Comments: 1-2 tablets at bedtime as needed. multivitamin with folic acid [Thera] 400 mcg Tablet 1 tablet PO QAM Qty: 1 0RF gabapentin 300 mg capsule 300 mg PO .DAILY HS acetaminophen 325 mg capsule 650 mg PO Q4H PRN (Reason: pain) Patient Comments: 1-3 pain scale nifedipine 30 mg tablet extended release 24hr 30 mg PO DAILY@0800 atorvastatin 80 mg tablet 80 mg PO QPM torsemide 10 mg tablet 10 mg PO DAILY@0800 allopurinol 100 mg tablet 100 mg PO BID levothyroxine 125 mcg tablet 125 mcg PO DAILY@0800 lisinopril 10 mg tablet 10 mg PO DAILY@0800 ezetimibe 10 mg tablet 10 mg PO DAILY@0800 duloxetine 60 mg capsule,delayed release(DR/EC) 60 mg PO HS fenofibric acid (choline) 45 mg capsule,delayed release(DR/EC) 45 mg PO DAILY@0800 Held metoprolol tartrate 25 mg Tablet 50 mg PO Q12HR Hold Instructions: until seen by his primary intensive care nurse Date of admission: 07/31/25 13:57 Primary Care Provider: Anne Kendrick Admitting Provider: Maria M Braun Attending physician on admission: Maria M Braun Condition: Stable
[2025-08-03 12:00] VITALS: PULSE 75
== END 2025-08-03 13:05 | disposition home or self-care (01) | DRG 291 ==
LOC: ANHIMU 15:40 → ANH2MED 08-01 18:54
PROVIDERS: Admitting Provider Family Medicine; PCP Family Medicine; Visit Provider Family Medicine
DX: I11.0 Hypertensive heart disease with heart failure (principal); I50.43 Acute on chronic combined systolic (congestive) and diastolic (congestive) heart failure; I48.20 Chronic atrial fibrillation, unspecified; I25.10 Atherosclerotic heart disease of native coronary artery without angina pectoris; I25.2 Old myocardial infarction; E03.9 Hypothyroidism, unspecified; F10.20 Alcohol dependence, uncomplicated; Z95.5 Presence of coronary angioplasty implant and graft; Z79.84 Long term (current) use of oral hypoglycemic drugs; Z79.01 Long term (current) use of anticoagulants
CPT/HCPCS: 36415; 80048; 83735; 85027; 93005; 97161; A9270; J1938

== ENCOUNTER 2025-08-05 01:14 | Observation (INO) | payer MEDICARE, SELFPAY ==
--- NOTE | ~2025-08-05 | CT_ITS ---
EXAMINATION: CT lumbar spine wo con COMPARISON: None HISTORY: low back injury. FALL. TECHNIQUE: Axial images were obtained through the spine without IV contrast. Coronal, sagittal reconstruction images were obtained from the axial views. CT scan performed using dose optimization techniques including the following automated exposure control; adjustment of mA and/or kV; use of iterative reconstruction technique. Automatic exposure control was used to reduce radiation dose. Permanent radiation dose record is archived to PACS. FINDINGS: Moderate loss of vertebral heights, no fracture or subluxation. Moderate to severe loss of disc height throughout most marked at L2-3 and L5-S1 with moderate canal and foraminal stenosis, outpatient MRI recommended Soft tissues unremarkable. Impression: No acute abnormality. Reviewed, dictated and finalized at location A. Impression: No acute abnormality.
--- NOTE | ~2025-08-05 | CT_ITS ---
EXAMINATION:CT diagnostic chest wo con DATE: 08/05/2025 02:19 INDICATION: Right chest pain. Fall. TECHNIQUE: Computed tomography (CT) of the chest was performed without intravenous contrast. Automated exposure control and iterative reconstruction technique were employed. The dose-length product (DLP) was 740.14 mGy-cm. COMPARISON: Chest CT 10/23/2024 FINDINGS: The lungs demonstrate moderate atelectasis bilaterally, much of which is chronic. There is a small right pleural effusion. Cardiomegaly is noted. There are coronary artery calcifications. No pericardial effusion. There is stable ectasia of ascending aorta measuring 4.5 cm. There is mild bilateral gynecomastia. There are old healed right rib fractures. There are acute fractures of right second-seventh ribs. There is a healing fracture of right ninth rib with callus formation. There are suture anchors in left humeral head. There are old healed left rib fractures. There is an old ununited fracture of the sternum. There is mild chronic anterior wedging of multiple thoracic vertebral bodies. There is mild thoracic spondylosis and severe lumbar spondylosis. IMPRESSION: 1. Acute fractures of right second-seventh ribs. 2. Small right pleural effusion. Reviewed, dictated and finalized at location K.
--- NOTE | ~2025-08-05 | CT_ITS ---
EXAMINATION: CT brain wo rosas, 08/05/2025 1:50 CDT HISTORY: accidental fall COMPARISON: No comparisons available. Technique: Axial images obtained of the brain without contrast. One or more of the following dose reduction techniques were used: automated exposure control, adjustment of the mA and/or kV according to patient size, use of iterative reconstruction technique. Findings: No acute infarct or parenchymal hemorrhage. No abnormal mass or mass effect. No midline shift. No extra-axial fluid collections. No hydrocephalus. Mastoid air cells unremarkable. Sinuses and orbits unremarkable. No acute fracture. No significant facial or scalp soft tissue swelling evident. No radiopaque foreign body is seen. Impression: 1.No acute intracranial abnormality. Reviewed, dictated and finalized at location A. Impression: 1.No acute intracranial abnormality.
--- NOTE | ~2025-08-05 | CT_ITS ---
EXAM: CT pelvis wo con - 08/05/2025 2:05 CDT History: 70 years old Male with right pelvis pain AFTER FALL. TECHNIQUE: Multidetector CT of the pelvis without contrast. Coronal and sagittal reformats were also provided for review. Automatic exposure control was used for this study. COMPARISON: None Available. FINDINGS: URINARY BLADDER: Within normal limits. VISUALIZED BOWEL: No abnormal bowel wall thickening. No obstruction. REPRODUCTIVE ORGANS: Within normal limits. MESENTERY/PERITONEAL CAVITY: No free fluid or pneumoperitoneum. LYMPH NODES: No abdominal or pelvic lymphadenopathy. ABDOMINAL WALL: Within normal limits. VASCULATURE: Within normal limits. MUSCULOSKELETAL: Multilevel degenerative changes of the spine. IMPRESSION: No hip or pelvic fracture. Reviewed, dictated and finalized at location N. IMPRESSION: No hip or pelvic fracture.
--- OUTSIDE RECORDS SUMMARY | 2025-08-05 01:16 | XMS_ITS | Encounter Summary ---
Author Organization [facility] Address [address] [place] [address] Care Team Providers Care Fish Bailer Name Role Phone Emeka Garcia MD Unavailable [phone] Anne Kendrick MD Primary Care Provider [phone] Viv Seo MD Unavailable Kahlil Peres MD Primary Care Provider [phone] Melany Oseguera PA-C Unavailable + [phone] Encounter Details Date Type Department Care Team (Late st Contact Info) Description 01/02/2024 Hospital Follow-up Call [facility] [address] [place] [address] Dipika Moseley RN Social History Tobacco Use Types Packs/Day Years Used Date Smoking Tobacco: Never Smokeless Tobacco: Never Alcohol Use Standard Drinks/Week Comments Yes 0 (1 standard drink = 0.6 oz pur e alcohol) [facility] Utilities Answer Date Recorded In the [...] place to sleep or slept in a usp (including now)? No 12/27/2023 Sex and Gender Information Value Date Recorded Sex Assigned at Male 12/04/2024 9:12 AM PROFESSOR OF COUNSELING Legal Sex Male 5:48 PM PROFESSOR OF COUNSELING Gender Identity Not on file Sexual Orientation [...] Assessment Author Status Yes 12/26/2023 9:15 PM PROFESSOR OF COUNSELING Em Miranda RN Active * Do you have difficulty dressing or bathing? Answer Date of Assessment Author Status No 12/26/2023 9:15 PM Em Spann RN Active * Because of a physical, mental, or emotional condition, do you have difficulty doing errands alone such as visiting a doctor's office or shopping? Answer Date of Assessment Author Status Yes 12/26/2023 9:15 PM PROFESSOR OF COUNSELING Em Miranda RN Active documented as of [...] st Contact Info) Description 11/19/2025 1:00 PM PROFESSOR OF COUNSELING Appointment [facility] [address] [place] [address] Viv Seo MD [address] [place], [place] [phone] 11/27/2025 11:30 AM PROFESSOR OF COUNSELING [facility] [address] [place] [id number] Viv Seo MD [address], [place] [phone] documented as of this encounter Goals Goal Patient Goal Type Associated Problems Recent Progress Patient-Stated? Author Patient will return to prior living situation and remain independent in ADLs upon discharge from hospital 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 RN documented as of this encounter Visit Diagnoses Not on filedocumented in this encounter Care Teams Fish Bailer Relationship Specialty Start Date End Date Anne Kendrick MD [address] [place] [phone] PCP - General FAMILY PRACTICE 10/05/23 11/29/24 Kahlil Peres MD [address] [place] [address] PCP - General FAMILY PRACTICE 11/30/24 Emeka Garcia MD [address] [place] [id number] Consulting Physician CLINICAL CARDIAC ELECTROPHYSIOLOGY 03/30/23 Viv Seo MD [address] [place], [place] [address] Consulting Physician CARDIOVASCULAR DISEASE 05/11/24 Melany Oseguera PA-C [address] [place], [place] [address] Referring Physician PHYSICIAN BRICK YARD HAND 04/01/25 documented as of this encounter
--- OUTSIDE RECORDS SUMMARY | 2025-08-05 01:16 | XMS_ITS | Patient Health Record ---
Author Organization [facility] Address [address] [place] [address] Care Team Providers Care Lambskin Trimmer Name Role Phone ALICE FALCON Unavailable [phone] Reason For Referral No Information Medications Medication SIG (Take, Route, Frequency, Duration) Notes Start Date End Date Status Eliquis 5 MG Oral 05/26/2022 Active FENOFIBRATE MICRONIZED 48 MG TABLET *Reorder from OrderBorder for eRx and Interaction Alerts* 05/26/2022 Active [...] Status W/U Status Risk Notes Problem Hypothyroidism (53689137) Hypothyroidism, unspecified (E03.9) 03/26/20 22 Active confirmed Problem Angina pectoris (723988420) Angina pectoris, unspecified (I20.9) 03/26/20 22 Active confirmed Problem Atherosclerotic heart disease of [place] coronary artery without angina pectoris (745443622581758) Atherosclerotic heart disease of [place] coronary artery without angina pectoris (I25.10) 05/26/20 22 Active confirmed Problem Chronic atrial fibrillation (488633643) Chronic atrial fibrillation (I48.2) 07/03/20 19 Active confirmed Problem Peripheral vascular disease (736032011) Peripheral vascular disease, unspecified (I73.9) 05/26/20 22 Active confirmed Problem Dyspnea (988260439) Dyspnea, unspecified (R06.00) 03/26/20 22 Active confirmed Problem Tremor (18347024) Tremor, unspecified (R25.1) 01/17/20 20 Active confirmed Problem Long-term current use of drug therapy (444077117) Other rubber tile floor layer (current) drug therapy (Z79.899) 03/26/20 22 Active confirmed Problem Mixed hyperlipidemia (312674227) Mixed hyperlipidemia (E78.2) 05/26/20 22 Active confirmed Problem Essential hypertension (32859587) Essential (primary) hypertension (I10) 06/09/20 23 Active confirmed Problem Mitral valve disorder (65024682) Nonrheumatic mitral (valve) insufficiency (I34.0) 03/26/20 22 Active confirmed Problem Atrial fibrillation (91683407) Unspecified atrial fibrillation (I48.91) 05/26/20 22 Active confirmed Plan Of Treatment No Information Insurance Providers Payer Name Payer Address Payer Phone Subscriber Number Group Number Insured Name Patient Relationship to Insured Coverage Start Date Coverage End Date Medicare Part B [address] [place] [phone] [id number] TERRI SALDIVAR Self - patient is the insured Medical (General) History Surgical History Surgery Date(Month/Year) Biopsy of lung (11867446) RIGHT Procedure on shoulder (53484 3003) [employer] LEFT SHOULDER SEPARATION Colonoscopy 03/25/2013 Percutaneous transluminal co ronary angioplasty (49884076) STENT TO LAD -CARDIAC CATH 2 STENTS 08/21/2012
--- OUTSIDE RECORDS SUMMARY | 2025-08-05 01:16 | XMS_ITS | Encounter Summary ---
Author Organization [facility] Address [address] [place] [address] Care Team Providers Care Clinician Oncology Name Role Phone Emeka Garcia MD Unavailable [phone] New Referring, Provider Primary Care Provider Un available Anne Kendrick MD Primary Care Provider [phone] Viv Seo MD Unavailable Kahlil Peres MD Primary Care Provider [phone] Melany Oseguera PA-C Unavailable [phone] Encounter Details Date Type Department Care Team (Latest Contact Info) Description 10/02/2023 Hospital Encounter Tyler Bennett MD [address] [phone] Social History Tobacco Use Types Packs/Day Years Used Date Smoking Tobacco: Never Smokeless Tobacco: Never Alcohol Use Standard Drinks/Week Comments Yes 16.7 (1 standard drink = 0.6 oz pure alcohol) [facility] Utilities Answer Date Recorded In the past 12 months has e [employer], gas, oil, or water company threatened to [...] place to sleep or slept in a [place] (including now)? No 12/27/2023 Housing Stability Vital Sign Answer Varinder e Recorded In the last 12 months, was t here a time when you were not able to pay the mortgage or rent on time? No 11/30/2024 In the past 12 months, how m any times have you moved where you were living? 1 11/30/2024 At [facility] the [facility] were you homeless or living in a [place] (including now)? Patient unable to answer 11/30/2024 Sex and Gender Information Value Date Recorded Sex Assigned at Male 12/04/2024 9:12 AM HAT CLEANER Legal Sex Male 5:48 PM HAT CLEANER Gender Identity Not on file Sexual Orientation [...] Author Status No 10/02/2023 2:18 PM Raul Williamsno RN Active * Do you have serious [...] 6:00 PM Reyes Gusman RN Active * Velva Suicide Severity Rating Scale (Screener/Recent Self-Report) Question [...] or making decisions? Yes 11/30/2024 6:47 PM HAT CLEANER Ella Burch RN Active * Because of a physical, mental, or emotional condition, do you have serious difficulty concentrating, remembering, or making decisions? Answer Entry Date Author Status No 10/02/2023 2:18 PM HAT CLEANER Raul Adler RN Active documented in this encounter Plan of Treatment Upcoming Encounters Date Type Department Care Team (Late st Contact Info) Description 11/19/2025 1:00 PM HAT CLEANER Appointment [facility] [address] [facility] [place] [address] Viv Seo MD [address] [place] [phone] 11/27/2025 11:30 AM HAT CLEANER Office Visit [facility] [address] [place] [address] Viv Seo MD [address] [place] [phone] documented as of this encounter Goals Goal [...] Rule Out 12/19/2023 12/19/2023 12/19/2023 6:05 AM HAT CLEANER COVID-19 Rule Out 12/26/2023 12/26/2023 12/26/2023 5:39 PM HAT CLEANER documented as of this encounter Care Teams Clinician Oncology Relationship Specialty Start Date End Date New Referring, Provider PCP - General UNKNOWN PHYSICIAN SPECIALTY 10/02/23 10/04/23 Anne Kendrick MD [address] [facility] [place] [address] PCP - General FAMILY PRACTICE 10/05/23 11/29/24 Kahlil Peres MD [address] [place] [id number] PCP - General FAMILY PRACTICE 11/30/24 Emeka Garcia MD [address] [place] [phone] Consulting Physician CLINICAL CARDIAC ELECTROPHYSIOLOGY 03/30/23 Viv Seo MD [address] [place] [address] Consulting Physician CARDIOVASCULAR DISEASE 05/11/24 Melany Oseguera PA-C [address] [place], [place] [phone] Referring Physician PHYSICIAN HUMAN RESOURCES BENEFITS COORDINATOR 04/01/25 documented as of this encounter
--- OUTSIDE RECORDS SUMMARY | 2025-08-05 01:16 | XMS_ITS | Clinical Summary ---
Author Organization [facility] Address [address] [place] [address] Care Team Providers Care Importer Exporter Name Role Phone Emeka Garcia MD Unavailable + [phone] Viv Childers MD Unavailable Kahlil Peres MD Primary Care Provider [phone] Melany Oseguera PA-C Unavailable + [phone] Allergies [...] CHF (conges tive heart failure) ([facility]) 05/01/2025 Parotiditis 11/30/2024 NSTEMI (non-ST elevated myoc ardial infarction) ([facility]) 12/26/2023 Multiple fractures of ribs, bilateral, initial encounter for closed fracture 10/02/2023 Fall 10/02/2023 SOB (shortness of breath) on exertion 12/30/2022 Encounters Date Type Department Care Team Description 05/20/2025 2:45 PM CDT Office Visit [facility] [address] [place] [address] Viv Childers MD Heart Problem 05/20/2025 1:48 PM CDT - 05/20/2025 11:59 PM CDT Hospital Encounter [facility] [address] [place] [address] Viv Childers MD Discharge Disposition: Home or Self Care (Routine Discharge) 05/20/2025 Travel 05/17/2025 [facility]phone [facility] [address] [place] [address] Viv Childers MD Appointment Reminder 05/13/2025 Orders Only [facility] eld [address] [place] [address] Viv Childers MD from Last 3 Months Immunizations Immunization Administration Dates Next Due Tdap (Boostrix) 07/11/2024 Tdap (Generic) 06/03/2015 Social History Tobacco Use Types Packs/Day Years Used Date Smoking Tobacco: Never Smokeless Tobacco: Never Tobacco Cessation:Counseling Given: Not Answered Alcohol Use Standard Drinks/Week Comments Yes 16.7 (1 standard drink = 0.6 oz pure alcohol) [facility] Utilities Answer Date Recorded In the past 12 months has e [employer], gas, oil, or water [employer] threatened to shut off services in your [...] place to sleep or slept in a longterm (including now)? No 12/27/2023 Housing Stability Vital Sign Answer Varinder e Recorded In the last 12 months, was t here a time when you were not able to pay the mortgage or rent on time? No 11/30/2024 In the past 12 months, how m any times have you moved where you were living? 1 11/30/2024 At any time in the past 12 m [facility], were you homeless or living in a longterm (including now)? Patient unable to answer 11/30/2024 Sex and Gender Information Value Date Recorded Sex Assigned at Male 12/04/2024 9:12 AM METAL LEAF LAYER Legal Sex Male 5:48 PM METAL LEAF LAYER Gender Identity Not on file Sexual Orientation Not on file Last Filed Vital Signs Vital Sign Reading Time Taken Comments Blood Pressure 153/88 05/20/2025 2:50 PM CDT Pulse 85 05/20/2025 2:44 PM CDT Temperature 36.5 C (97.7 F) 12/18/2024 8:01 AM METAL LEAF LAYER Respiratory Rate 16 05/20/2025 2:44 PM CDT Oxygen Saturation 98% 05/20/2025 2:44 PM CDT Inhaled Oxygen Concentration - - Weight 76.2 kg (168 lb) 05/20/2025 2:44 PM CDT Height 177.8 cm (5' 10) 05/20/2025 2:44 PM CDT Body Mass Index 24.11 05/20/2025 2:44 PM CDT Plan of Treatment Upcoming Encounters Date Type Department Care Team (Late st Contact Info) Description 11/19/2025 1:00 PM METAL LEAF LAYER Appointment [facility] [address] [place] [place] [address] Viv Childers MD [address] [place] [address] [phone] 11/27/2025 11:30 AM METAL LEAF LAYER Office Visit [facility] [address] [place] [address] Viv Childers MD [address] [place] [address] [phone] Maintenance Due Date Last Done Comments [...] upon discharge from hospital Lifestyle Vicky Moreira, drip molder Procedure Name Priority Date/Time Associated Diagnosis Comments ECG 12-LEAD Routine 05/20/2025 1:58 PM CDT Non-ST elevated myocardial infarction (CMS/HCC HHS/HCC) LIPID PANEL Routine 12/27/2023 7:08 AM METAL LEAF LAYER from Last 3 Months or Most Recently Relevant to Health Maintenance Results * ECG 12-Lead (05/20/2025 1:58 PM CDT) 05/20/2025 1:58 PM CDT Narrative [facility] - 05/20/2025 6:22 PM CDT [address] [place] [address] Test Date: 2025-05-20 Pat Name: TERRI SALDIVAR Department: 3 Room: Gender: Male Erp Consultant: : 1955 Requested By: VIV CHILDERS Order Number: [id number] Reading MD: Viv Childers Measurements Intervals Mobile Rate: 86 P: 0 AR: 0 QRS: -50 QRSD: 113 T: 53 [...] Procedure Note Viv Childers MD - 05/20/2025 [facility] [address] [place] [address] Test Date: 2025-05-20 Pat Name: TERRI SALDIVAR Department: 3 Room: Gender: Male Erp Consultant: : 1955 Requested By: VIV CHILDERS Order Number: [id number] Reading MD: Viv Childers Measurements Intervals Mobile Rate: 86 P: 0 AR: 0 QRS: -50 QRSD: 113 T: 53 [...] Viv Childers MD ECG ORDERABLES Final Result [facility] * LIPID PANEL (12/27/2023 7:08 AM METAL LEAF LAYER) CHOLESTEROL 131 MG/DL 12/27/2023 8:36 AM METAL LEAF LAYER [facility] Comment:DESIRABLE: <200 TRIGLYCERIDES 124 MG/DL 12/27/2023 8:36 AM METAL LEAF LAYER [facility] Comment:<150 NORMAL HDL 54 >39 MG/DL 12/27/2023 8:36 AM [facility] LDL (CALCULATED) 52 MG/DL 12/27/19 24 8:36 AM [facility] Comment:<100 OPTIMAL VLDL CALCULATION 25 MG/DL 12/27/19 24 8:36 AM METAL LEAF LAYER [facility] Comment:REFERENCE RANGE NOT ESTABLISHED CHOL/HDL RATIO 2.4 12/27/2023 8:36 AM METAL LEAF LAYER [facility] Comment:REFERENCE RANGE NOT ESTABLISHED LDL/HDL 1.0 12/27/2023 8:36 AM METAL LEAF LAYER [facility] Comment:REFERENCE RANGE NOT ESTABLISHED NON HDL CHOLESTEROL 77 MG/DL 12/27/2023 8:36 AM METAL LEAF LAYER [facility] Comment:REFERENCE RANGE NOT ESTABLISHED 12/27/2023 7:08 AM METAL LEAF LAYER us Arline Calixto MD LABORATORY Final Res ult [facility] [address] [place] [address], [id number] from Last 3 Months or Most Recently Relevant to Health Maintenance Insurance MEDICARE Advance Directives Documents on File Type Date Recorded Patient Customer Experience Associate Expl anation Advance Directives and Living Will [...] 4:13 PM 12/31/2022 7:27 PM Care Teams Importer Exporter Relationship Specialty Start Date End Date Kahlil Peres MD [address] [place] [address] PCP - General FAMILY PRACTICE 11/30/24 Emeka Garcia MD [address] [place] [address] Consulting Physician CLINICAL CARDIAC ELECTROPHYSIOLOGY 03/30/23 Viv Childers MD [address] [place], [place] [address] Consulting Physician CARDIOVASCULAR DISEASE 05/11/24 Melany Oseguera PA-C [address] [place] [address] Referring Physician PHYSICIAN CREDIT ASSOCIATE 04/01/25
[2025-08-05 01:17] VITALS: BP 136/84; PULSE 85; RESP 18; TEMP 36.6; O2SAT 94
--- NOTE | 2025-08-05 01:22 | ED.FALL ---
HPI - Fall General Chief Complaint: Fall Stated Complaint: falls Source: patient and EMS Mode of arrival: ambulatory Limitations: no limitations History of Present Illness HPI Narrative: 70-year-old male history alcohol use, hypothyroidism, CKD, multivalvular lesions,CAD status post stents, systolic diastolic CHF, PAF on Eliquis, recurrent falls, Neuropathy, prior right rib fractures was discharged from [facility] 2 days ago for CHF exacerbation. He is brought in to the ED by EMS for -- recurrent falls. He had an episode of a fall 2 days ago and he had a 2nd episode yesterday evening around 8:00 p.m. Last night he got up to go to the bathroom and his feet got caught up in some cords following which he fell. No head injury. No loss of consciousness. no ENT bleeding. No headache or vomiting. He complains of -- right lower chest wall pain which is made worse by deep breathing and coughing. -- Right hip pain -- lower back pain. he has bruising at the level of upper lumbar vertebrae. Onset (ago): hour(s) ( 5 hours ago) Fall from: standing Fall witnessed: yes, by family Place fall occurred: home Loss of consciousness: none Symptoms prior to fall: none Context: tripped/slipped Location of injury: chest, back and pelvis Severity: severe Quality: sharp and stabbing Associated symptoms (after fall): chest pain Related Data Home Medications ?Medication ?Instructions ?Recorded ?Confirmed ?Last Taken ?Type duloxetine 30 mg capsule,delayed 30 mg PO DAILY 07/01/23 07/31/25 07/31/25 09:00 History release 30 mg apixaban 5 mg tablet (Eliquis) 5 mg PO BID 10/25/24 07/31/25 07/30/25 17:50 History 5 mg metoprolol tartrate 25 mg tablet 50 mg PO Q12HR 03/06/25 07/31/25 07/31/25 09:00 History Held on 08/03/25. 50 mg Instructions: until seen by his primary promotions specialist gabapentin 300 mg capsule 300 mg PO .DAILY HS Neuropathy 07/30/25 07/31/25 07/30/25 21:00 History 300 mg acetaminophen 325 mg capsule 650 mg PO Q4H PRN pain 07/31/25 07/31/25 07/30/25 12:30 History 650 mg allopurinol 100 mg tablet 100 mg PO BID 07/31/25 07/31/25 07/30/25 08:00 History 100 mg atorvastatin 80 mg tablet 80 mg PO QPM 07/31/25 07/31/25 07/30/25 08:00 History 80 mg duloxetine 60 mg capsule,delayed 60 mg PO HS 07/31/25 07/31/25 07/30/25 08:00 History release 60 mg ezetimibe 10 mg tablet 10 mg PO DAILY@79907/31/25 07/31/25 07/30/25 08:00 History 10 mg fenofibric acid (choline) 45 mg 45 mg PO DAILY@79907/31/25 07/31/25 07/30/25 08:00 History capsule,delayed release 45 mg levothyroxine 125 mcg tablet 125 mcg PO DAILY@79907/31/25 07/31/25 07/30/25 08:00 History 125 mcg lisinopril 10 mg tablet 10 mg PO DAILY@79907/31/25 07/31/25 07/30/25 08:00 History 10 mg nifedipine 30 mg tablet,extended 30 mg PO DAILY@79907/31/25 07/31/25 07/30/25 08:00 History release 24 hr 30 mg torsemide 10 mg tablet 10 mg PO DAILY@79907/31/25 07/31/25 07/30/25 08:00 History 10 mg Allergies Allergy/AdvReac Type Severity Reaction Status Date / Time magnesium sulfate AdvReac Intermediate Flushing Verified 08/05/25 01:20 Review of Systems Review of Systems: All systems reviewed & are unremarkable except as noted in HPI and below Constitutional: Constitutional: Reports as per HPI and Reports no additional constitutional complaints Eyes: Eyes: Reports as per HPI and Reports no additional eye complaints ENT: Reports system reviewed and no additional complaints, except as documented and Reports as per HPI Cardiovascular: Cardiovascular: Reports as per HPI and Reports no additional cardiovascular complaints Respiratory: Respiratory: Reports as per HPI and Reports no additional respiratory complaints Comments: the right lower chest wall pain which is pleuritic. Gastrointestinal: Gastrointestinal: Reports as per HPI and Reports no additional gastrointestinal complaints Genitourinary: Genitourinary: Reports no additional male genitourinary complaints and Reports as per HPI Musculoskeletal: Musculoskeletal: Reports no additional musculoskeletal complaints, Reports as per HPI and Reports back pain Comments: tenderness over right hip. Normal range of motion. Integumentary/Breasts: Skin/Breast: Reports system reviewed and no additional complaints, except as docu and Reports as per HPI Comments: bruising of the midline at the upper lumbar vertebrae level no spinal tenderness Neurologic: Reports system reviewed and no additional complaints, except as documented and Reports as per HPI Psychiatric: Psychiatric: Reports no additional psychiatric complaints and Reports as per HPI Endocrine: Endocrine: Reports no additional endocrine complaints and Reports as per HPI Hematologic/Lymphatic: Hematologic/Lymphatic: Reports no additional hematologic/lymphatic complaints and Reports as per HPI Allergic/Immunologic: Allergic/Immunologic: Reports no additional allergic/immunologic complaints and Reports as per HPI PMFSH Past Medical History Medical History Cystitis Tremor of both hands Hypothyroidism CAD (coronary artery disease) Ascending aorta dilatation Myocardial infarction Hyperlipidemia Hypertension Alcoholism A-fib Closed rib fracture Family History Family History Father Lung cancer Sibling Malignant neoplasm of prostate History of open heart surgery Social History Social History Smoking status: Never smoker Second hand tobacco smoke exposure: No Alcohol intake: current Drinks per week: 1 Substance use: never Substance use type: does not use Do You Feel Safe in your Home?: Yes Lack of Transportation: No Lack of Food: Never True Current Housing: I Have Housing Concerned About Future Housing: No Difficulty Paying Gas/Electric Bills: No Difficulty Paying for Meds: YES Currently Unemployed: No Education: High School Diploma/GED Difficulty w/ Childcare or Family Care: No Spiritual care concerns: No Course Course Emergency Course: Accidental fall. recurrent falls.Patient is on Eliquis right chest wall pain-- CT revealed fracture of the right 3rd, 4th, 5th, 6th and 7th ribs. right hip pain-- CT of the pelvis did not show any acute findings. upper lumbar back pain-- No fracture or dislocation of the lumbar spine blood work revealed BUN/creatinine of 38/2. 38/2 with a potassium of 5.1 Vital Signs Vital signs: Vital Signs Temperature 36.6 C 08/05/25 01:17 Pulse Rate 85 08/05/25 01:17 Respiratory Rate 18 08/05/25 01:17 Blood Pressure 136/84 08/05/25 01:17 Pulse Oximetry 94 08/05/25 01:17 Oxygen Delivery Room Air 08/05/25 01:17 Temperature 36.6 C 08/05/25 01:17 Pulse Rate 85 08/05/25 01:17 Respiratory Rate 18 08/05/25 01:17 Blood Pressure 136/84 08/05/25 01:17 Pulse Oximetry 94 08/05/25 01:17 Oxygen Delivery Room Air 08/05/25 01:17 MDM - Fall MDM Narrative Medical decision making narrative: accidental fall right 3rd to 7th rib fracture Differential Diagnosis Differential diagnosis: Likely other ( pneumothorax) Medical Records Attestation: I reviewed the patient's medical records. Lab Data Attestation: I reviewed the patient's lab results. 08/05/25 03:15 08/05/25 03:15 Labs: Lab Results 08/05/25 Range/Units 03:15 WBC 7.1 (4.8-10.8) K/mm3 RBC 4.13 L (4.70-6.10) M/mm3 Hgb 13.7 (12.4-15.3) g/dL Hct 41.5 (37.0-46.0) % MCV 100.5 (78.0-102.0) fL MCH 33.2 H (27.0-31.0) pg MCHC 33.0 (32-36) g/dL RDW 13.3 (11.6-14.4) % Plt Count 278 (150-420) K/mm3 MPV 9.5 (8.7-11.0) fl Immature Gran % (Auto) 1.3 H (0.0-0.0) % Neut % (Auto) 73.8 H (50.0-70.0) % Lymph % (Auto) 13.2 L (18.0-42.0) % [place] % (Auto) 10.2 (2.0-11.0) % Eos % (Auto) 1.1 (1.0-6.0) % Baso % (Auto) 0.4 (0.0-1.0) % Lymph # (Auto) 0.93 L (1.10-4.50) K/mm3 [place] # (Auto) 0.72 (0.10-0.90) K/mm3 Eos # (Auto) 0.08 (0.02-0.50) K/mm3 Baso # (Auto) 0.03 (0.00-0.10) K/mm3 Abs Immat Gran (auto) 0.09 H (0.00-0.00) K/mm3 Absolute Neuts (auto) 5.22 (1.70-7.20) K/mm3 Absolute Nucleated RBC 0.00 (0.00-0.00) K/mm3 Nucleated RBC % 0.0 (0-0.0) % PT 11.0 (9.50-12.1) Seconds INR 1.0 APTT 27.6 (23.9-30.70) Sec Sodium 138 (137-145) mmol/L Potassium 5.1 H (3.4-5.0) mmol/L Chloride 102 (98-107) mmol/L Carbon Dioxide 26 (22-30) mmol/L Anion Gap 10 (4-12) mmol/L BUN 38 H (9-20) mg/dL Creatinine 2.00 H (0.7-1.3) mg/dL Estim Creat Clear Calc 32 ml/min Estimated GFR 33 L (59 - ) Glucose 130 H (65-110) mg/dL Calculated Osmolality 297 H (285-295) mOsm/kg Calcium 9.9 (8.4-10.2) mg/dL Total Bilirubin 1.3 (0.2-1.3) mg/dL AST 50 (17-59) U/L ALT 31 (6-50) U/L Alkaline Phosphatase 69 (38-126) U/L Total Protein 8.9 H (6.3-8.2) g/dL Albumin 4.1 (3.5-5.1) g/dL Discharge Plan Discharge Clinical Impression: Accidental fall Qualifiers: Encounter type: initial encounter Qualified Code(s): W19.XXXA - Unspecified fall, initial encounter Multiple fractures of ribs of right side Qualifiers: Encounter type: initial encounter Fracture type: closed Qualified Code(s): S22.41XA - Multiple fractures of ribs, right side, initial encounter for closed fracture Patient Disposition: Still a Patient Condition: Stable Time of Disposition: 04:22
[2025-08-05] MEDS: HYDROmorphone HCL INJ (*CRX) 2 MG/ML VIAL 0.5 MG IM ×2 (01:50→03:04)
[2025-08-05] MEDS: ONDANSETRON HCL ODT 4 MG TABLET PO (01:50)
[2025-08-05 03:25] LABS: Hematocrit 41.5 % (37.0-46.0); Hemoglobin 13.7 g/dL (12.4-15.3); Immature Granulocyte Percent A 1.3 % (0.0-0.0); Lymphocytes Absolute Auto 0.93 K/mm3 (1.10-4.50); Mean Corpuscular HGB Conc 33.0 g/dL (32-36); Mean Corpuscular Hemoglobin 33.2 pg (27.0-31.0); Mean Corpuscular Volume 100.5 fL (78.0-102.0); Nucleated Red Blood Cells Absolute Auto 0.00 K/mm3 (0.00-0.00); Nucleated Red Blood Cells Perc 0.0 % (0-0.0); Platelet Count Result 278 K/mm3 (150-420); Red Blood Count 4.13 M/mm3 (4.70-6.10); White Blood Count 7.1 K/mm3 (4.8-10.8)
[2025-08-05 03:29] LABS: Alanine Aminotransferase 31 U/L (6-50); Albumin Level 4.1 g/dL (3.5-5.1); Alkaline Phosphatase 69 U/L (38-126); Anion Gap 10 mmol/L (4-12); Aspartate Amino Transferase 50 U/L (17-59); Bilirubin,Total 1.3 mg/dL (0.2-1.3); Blood Urea Nitrogen 38 mg/dL (9-20); Calcium 9.9 mg/dL (8.4-10.2); Carbon Dioxide 26 mmol/L (22-30); Chloride 102 mmol/L (98-107); Estimated CRCL calculation 32 ml/min; Estimated Glomerular Filt Rate 33; Glucose 130 mg/dL (65-110); Osmolality Calculated 297 mOsm/kg (285-295); Potassium 5.1 mmol/L (3.4-5.0); Sodium 138 mmol/L (137-145); Total Protein 8.9 g/dL (6.3-8.2)
[2025-08-05 03:54] LABS: INR 1.0; Partial Thromboplastin Time 27.6 Sec (23.9-30.70); Prothrombin Time 11.0 Seconds (9.50-12.1)
--- NOTE | 2025-08-05 04:20 | ADMGEN ---
This patient, Claudio Devries, was admitted to 2nd Floor Room 203-1. Patient/family oriented to hospital policies and general routines including ID bracelet, bed and alarms, pain management, procedures, bathroom and other care routines, personal items, smoking policy, room service/diet, and visiting hours. Information on how to activate the Rapid Response Team has been discussed. Patient/Family are encouraged to report perceived risks to care and to ask questions if they do not understand what they are told or what they should do.
[2025-08-05 04:24] VITALS: BMI 24.7
--- NOTE | 2025-08-05 04:36 | ADMGEN ---
This patient, Claudio Devries, was admitted to 2nd Floor Room 203-1. Patient oriented to hospital policies and general routines including ID bracelet, bed and alarms, visiting hours, pain management, procedures, bathroom and other care routines, personal items, smoking policy, room service/diet, and visiting hours. Information on how to activate the Rapid Response Team has been discussed. Patient are encouraged to report perceived risks to care and to ask questions if they do not understand what they are told or what they should do.
[2025-08-05 04:45] VITALS: PULSE 85; RESP 18; O2SAT 90
--- OUTSIDE RECORDS SUMMARY | 2025-08-05 07:36 | XMS_ITS | Encounter Summary ---
Author Organization [facility] Address [address] [place] [address] Care Team Providers Care Machinist Instructor Name Role Phone Emeka Garcia MD Unavailable [phone] New Referring, Provider Primary Care Provider Un available Anne Kendrick MD Primary Care Provider [phone] Viv Seo MD Unavailable Kahlil Peres MD Primary Care Provider [phone] Melany Oseguera PA-C Unavailable [phone] Encounter Details Date Type Department Care Team (Latest Contact Info) Description 10/02/2023 Hospital Encounter Tyler Bennett MD [address] [phone] Social History Tobacco Use Types Packs/Day Years Used Date Smoking Tobacco: Never Smokeless Tobacco: Never Alcohol Use Standard Drinks/Week Comments Yes 16.7 (1 standard drink = 0.6 oz pure alcohol) [facility] Utilities Answer Date Recorded In the past 12 months has e [employer], gas, oil, or water company threatened to [...] any time in the past 12 m [facility], were you homeless or living in a longterm (including now)? Patient unable to answer 11/30/2024 Sex and Gender Information Value Date Recorded Sex Assigned at Male 12/04/2024 9:12 AM RECORDER OF DEEDS Legal Sex Male 5:48 PM RECORDER OF DEEDS Gender Identity Not on file Sexual Orientation [...] 6:00 PM Reyes Gusman RN Active * [place] Suicide Severity Rating Scale (Screener/Recent Self-Report) Question [...] or making decisions? Yes 11/30/2024 6:47 PM RECORDER OF DEEDS Ella Burch RN Active * Because of a physical, mental, or emotional condition, do you have serious difficulty concentrating, remembering, or making decisions? Answer Entry Date Author Status No 10/02/2023 2:18 PM RECORDER OF DEEDS Raul Adler RN Active documented in this encounter Plan of Treatment Upcoming Encounters Date Type Department Care Team (Late st Contact Info) Description 11/19/2025 1:00 PM RECORDER OF DEEDS Appointment [facility] [address] [facility] [place] [address] Viv Seo MD [address] [place] [address] [phone] 11/27/2025 11:30 AM RECORDER OF DEEDS Office Visit [facility] [address] [place] [address] Viv Seo MD [address] [place] [address] [phone] documented as of this encounter Goals Goal [...] Rule Out 12/19/2023 12/19/2023 12/19/2023 6:05 AM RECORDER OF DEEDS COVID-19 Rule Out 12/26/2023 12/26/2023 12/26/2023 5:39 PM RECORDER OF DEEDS documented as of this encounter Care Teams Machinist Instructor Relationship Specialty Start Date End Date New Referring, Provider PCP - General UNKNOWN PHYSICIAN SPECIALTY 10/02/23 10/04/23 Anne Kendrick MD [address] [facility] [place] [address] PCP - General FAMILY PRACTICE 10/05/23 11/29/24 Kahlil Peres MD [address] [place] [address] [phone] PCP - General FAMILY PRACTICE 11/30/24 Emeka Garcia MD [address] [place] [phone] Consulting Physician CLINICAL CARDIAC ELECTROPHYSIOLOGY 03/30/23 Viv Seo MD [address] [place] [address] Consulting Physician CARDIOVASCULAR DISEASE 05/11/24 Melany Oseguera PA-C [address] [place], [place] [address] Referring Physician PHYSICIAN PILE DRIVER 04/01/25 documented as of this encounter
--- OUTSIDE RECORDS SUMMARY | 2025-08-05 07:36 | XMS_ITS | Encounter Summary ---
Author Organization [facility] Address [address] [place] [address] Care Team Providers Care Avionics System Engineer Name Role Phone Emeka Garcia MD Unavailable [phone] Anne Kendrick MD Primary Care Provider [phone] Viv Seo MD Unavailable Kahlil Peres MD Primary Care Provider [phone] Melany Oseguera PA-C Unavailable + [phone] Encounter Details Date Type Department Care Team (Late st Contact Info) Description 01/02/2024 Hospital Follow-up Call [facility] [address] [place] [address] Dipika Moseley RN Social History Tobacco Use Types Packs/Day Years Used Date Smoking Tobacco: Never Smokeless Tobacco: Never Alcohol Use Standard Drinks/Week Comments Yes 0 (1 standard drink = 0.6 oz pur e alcohol) [facility] Utilities Answer Date Recorded In the [...] place to sleep or slept in a retirement (including now)? No 12/27/2023 Sex and Gender Information Value Date Recorded Sex Assigned at Male 12/04/2024 9:12 AM ENGINE LATHE TENDER Legal Sex Male 5:48 PM ENGINE LATHE TENDER Gender Identity Not on file Sexual [...] Assessment Author Status Yes 12/26/2023 9:15 PM ENGINE LATHE TENDER Em Miranda RN Active * Do you have difficulty dressing or bathing? Answer Date of Assessment Author Status No 12/26/2023 9:15 PM Em Spann RN Active * Because of a physical, mental, or emotional condition, do you have difficulty doing errands alone such as visiting a doctor's office or shopping? Answer Date of Assessment Author Status Yes 12/26/2023 9:15 PM ENGINE LATHE TENDER Em Miranda RN Active documented as [...] st Contact Info) Description 11/19/2025 1:00 PM ENGINE LATHE TENDER Appointment [facility] [address] [place] [address] Viv Seo MD [address] [place], [place] [phone] 11/27/2025 11:30 AM ENGINE LATHE TENDER [facility] [address] [place] [phone] Viv Seo MD [address] [place], [place] [phone] documented as of this encounter Goals Goal Patient Goal Type Associated Problems Recent Progress Patient-Stated? Author Patient will return to prior living situation and remain independent in ADLs upon discharge from hospital 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 RN documented as of this encounter Visit Diagnoses Not on filedocumented in this encounter Care Teams Avionics System Engineer Relationship Specialty Start Date End Date Anne Kendrick MD [address] [place] [phone] PCP - General FAMILY PRACTICE 10/05/23 11/29/24 Kahlil Peres MD [address] [place] [address] PCP - General FAMILY PRACTICE 11/30/24 Emeka Garcia MD [address] [place] [phone] Consulting Physician CLINICAL CARDIAC ELECTROPHYSIOLOGY 03/30/23 Viv Seo MD [address] [place], [place] [phone] Consulting Physician CARDIOVASCULAR DISEASE 05/11/24 Melany Oseguera PA-C [address] [place], [place] [address] Referring Physician PHYSICIAN CUP MACHINE OPERATOR 04/01/25 documented as of this encounter
--- OUTSIDE RECORDS SUMMARY | 2025-08-05 07:36 | XMS_ITS | Clinical Summary ---
Author Organization [facility] Address [address] [place] [address] Care Team Providers Care Lieutenant Governor Name Role Phone Emeka Garcia MD Unavailable [phone] Viv Childers MD Unavailable Kahlli Peres MD Primary Care Provider [phone] Melany Oseguera PA-C Unavailable + [phone] Allergies [...] Chronic systolic CHF (conges tive heart failure) ([facility]) 05/01/2025 Parotiditis 11/30/2024 NSTEMI (non-ST elevated myoc ardial infarction) ([facility]) 12/26/2023 Multiple fractures of ribs, bilateral, initial encounter for closed fracture 10/02/2023 Fall 10/02/2023 SOB (shortness of breath) on exertion 12/30/2022 Encounters Date Type Department Care Team Description 05/20/2025 2:45 PM CDT Office Visit [facility] [address] [place] [address] Viv Childers MD Heart Problem 05/20/2025 1:48 PM CDT - 05/20/2025 11:59 PM CDT Hospital Encounter [facility] [address] [place] [address] Viv Childers MD Discharge Disposition: Home or Self Care (Routine Discharge) 05/20/2025 Travel 05/17/2025 Telephone [facility] [address] [place] [address] Viv Childers MD Appointment Reminder 05/13/2025 Orders Only [facility] [address] [place] [address] Viv Childers MD from Last 3 Months Immunizations Immunization Administration Dates Next Due Tdap (Boostrix) 07/11/2024 Tdap (Generic) 06/03/2015 Social History Tobacco Use Types Packs/Day Years Used Date Smoking Tobacco: Never Smokeless Tobacco: Never Tobacco Cessation:Counseling Given: Not Answered Alcohol Use Standard Drinks/Week Comments Yes 16.7 (1 standard drink = 0.6 oz pure alcohol) [facility] Utilities Answer Date Recorded In the past 12 months has e [employer], gas, oil, or water [employer] threatened to shut off services in your [...] any time in the past 12 [facility], were you homeless or living in a snf (including now)? Patient unable to answer 11/30/2024 Sex and Gender Information Value Date Recorded Sex Assigned at Male 12/04/2024 9:12 AM TRAFFIC INCIDENT MANAGEMENT MANAGER Legal Sex Male 5:48 PM TRAFFIC INCIDENT MANAGEMENT MANAGER Gender Identity Not on file Sexual Orientation Not on file Last Filed Vital Signs Vital Sign Reading Time Taken Comments Blood Pressure 153/88 05/20/2025 2:50 PM CDT Pulse 85 05/20/2025 2:44 PM CDT Temperature 36.5 C (97.7 F) 12/18/2024 8:01 AM TRAFFIC INCIDENT MANAGEMENT MANAGER Respiratory Rate 16 05/20/2025 2:44 PM CDT Oxygen Saturation 98% 05/20/2025 2:44 PM CDT Inhaled Oxygen Concentration - - Weight 76.2 kg (168 lb) 05/20/2025 2:44 PM CDT Height 177.8 cm (5' 10) 05/20/2025 2:44 PM CDT Body Mass Index 24.11 05/20/2025 2:44 PM CDT Plan of Treatment Upcoming Encounters Date Type Department Care Team (Late st Contact Info) Description 11/19/2025 1:00 PM TRAFFIC INCIDENT MANAGEMENT MANAGER Appointment [facility] [address] [place] [address] Viv Childers MD [address] [place] [address] [phone] 11/27/2025 11:30 AM TRAFFIC INCIDENT MANAGEMENT MANAGER Office Visit [facility] [address] [place] [address] Viv Childers MD [address] [place] [address] [phone] Health Maintenance Due Date Last Done Comments [...] upon discharge from hospital Lifestyle Vicky Moreira, radiological health specialist Procedure Name Priority Date/Time Associated Diagnosis Comments ECG 12-LEAD Routine 05/20/2025 1:58 PM CDT Non-ST elevated myocardial infarction (CMS/HCC HHS/HCC) LIPID PANEL Routine 12/27/2023 7:08 AM TRAFFIC INCIDENT MANAGEMENT MANAGER from Last 3 Months or Most Recently Relevant to Health Maintenance Results * ECG 12-Lead (05/20/2025 1:58 PM CDT) 05/20/2025 1:58 PM CDT Narrative [facility] - 05/20/2025 6:22 PM CDT [address] [place] [address] Test Date: 2025-05-20 Pat Name: TERRI SALDIVAR Department: 3 Room: Gender: Male Ceiling Installer: : 1955 Requested By: VIV CHILDERS Order Number: [id number] Reading MD: Viv Childers Measurements Intervals [place] Rate: 86 P: 0 AR: 0 QRS: [...] Procedure Note Viv Childers MD - 05/20/2025 [facility] [address] [place] [address] Test Date: 2025-05-20 Pat Name: TERRI SALDIVAR Department: 3 Room: Gender: Male Ceiling Installer: : 1955 Requested By: VIV CHILDERS Order Number: [id number] Reading MD: Viv Childers Measurements Intervals [place] Rate: 86 P: 0 AR: 0 QRS: [...] Viv Childers MD ECG ORDERABLES Final Result [facility] * LIPID PANEL (12/27/2023 7:08 AM TRAFFIC INCIDENT MANAGEMENT MANAGER) CHOLESTEROL 131 MG/DL 12/27/2023 8:36 AM TRAFFIC INCIDENT MANAGEMENT MANAGER [facility] Comment:DESIRABLE: <200 TRIGLYCERIDES 124 MG/DL 12/27/2023 8:36 AM TRAFFIC INCIDENT MANAGEMENT MANAGER [facility] Comment:<150 NORMAL HDL 54 >39 MG/DL 12/27/2023 8:36 AM [facility] LDL (CALCULATED) 52 MG/DL 12/27/19 24 8:36 AM [facility] Comment:<100 OPTIMAL VLDL CALCULATION 25 MG/DL 12/27/19 24 8:36 AM TRAFFIC INCIDENT MANAGEMENT MANAGER [facility] Comment:REFERENCE RANGE NOT ESTABLISHED CHOL/HDL RATIO 2.4 12/27/2023 8:36 AM TRAFFIC INCIDENT MANAGEMENT MANAGER [facility] Comment:REFERENCE RANGE NOT ESTABLISHED LDL/HDL 1.0 12/27/2023 8:36 AM TRAFFIC INCIDENT MANAGEMENT MANAGER [facility] Comment:REFERENCE RANGE NOT ESTABLISHED NON HDL CHOLESTEROL 77 MG/DL 12/27/2023 8:36 AM TRAFFIC INCIDENT MANAGEMENT MANAGER [facility] Comment:REFERENCE RANGE NOT ESTABLISHED 12/27/2023 7:08 AM TRAFFIC INCIDENT MANAGEMENT MANAGER us Arline Calixto MD LABORATORY Final Res ult [facility] [address] [place] [address], [phone] from Last 3 Months or Most Recently Relevant to Health Maintenance Insurance MEDICARE Advance Directives Documents on File Type Date Recorded Patient Jewel Gauger Expl anation Advance Directives and Living Will [...] 4:13 PM 12/31/2022 7:27 PM Care Teams Lieutenant Governor Relationship Specialty Start Date End Date Kahlil Peres MD [address] [place] [address] PCP - General FAMILY PRACTICE 11/30/24 Emeka Garcia MD [address] [place] [address] Consulting Physician CLINICAL CARDIAC ELECTROPHYSIOLOGY 03/30/23 Viv Childers MD [address] [place], [place] [address] Consulting Physician CARDIOVASCULAR DISEASE 05/11/24 Melany Oseguera PA-C [address] [place] [address] Referring Physician PHYSICIAN CROSS COUNTRY COACH 04/01/25
[2025-08-05 08:00] VITALS: BP 121/78; PULSE 72; PULSE 85; RESP 18; TEMP 36.6; O2SAT 92
[2025-08-05] MEDS: DOCUSATE SODIUM 100 MG CAPSULE PO (08:47)
[2025-08-05] MEDS: HYDROcodone/acetaminophen (*CRX) 5-325 MG TABLET 1 TAB PO (08:50)
[2025-08-05 09:16] LABS: Hematocrit 40.8 % (37.0-46.0); Hemoglobin 13.3 g/dL (12.4-15.3); Mean Corpuscular HGB Conc 32.6 g/dL (32-36); Mean Corpuscular Hemoglobin 33.3 pg (27.0-31.0); Mean Corpuscular Volume 102.0 fL (78.0-102.0); Platelet Count Result 266 K/mm3 (150-420); Red Blood Count 4.00 M/mm3 (4.70-6.10); White Blood Count 6.7 K/mm3 (4.8-10.8)
[2025-08-05 09:33] LABS: Alanine Aminotransferase 27 U/L (6-50); Albumin Level 3.8 g/dL (3.5-5.1); Alkaline Phosphatase 67 U/L (38-126); Anion Gap 9 mmol/L (4-12); Aspartate Amino Transferase 38 U/L (17-59); Bilirubin,Total 1.3 mg/dL (0.2-1.3); Blood Urea Nitrogen 39 mg/dL (9-20); Calcium 9.5 mg/dL (8.4-10.2); Carbon Dioxide 27 mmol/L (22-30); Chloride 100 mmol/L (98-107); Estimated CRCL calculation 26 ml/min; Estimated Glomerular Filt Rate 25; Glucose 230 mg/dL (65-110); Osmolality Calculated 298 mOsm/kg (285-295); Potassium 5.3 mmol/L (3.4-5.0); Sodium 136 mmol/L (137-145); Total Protein 7.7 g/dL (6.3-8.2)
[2025-08-05 09:34] LABS: Magnesium 2.1 mg/dL (1.6-2.3)
[2025-08-05 09:45] VITALS: PULSE 75
[2025-08-05] MEDS: MULTIVITAMINS THERAPEUTIC TAB (*BKC) 1 TABLET PO (09:45)
[2025-08-05] MEDS: METOPROLOL SUCCINATE EXT REL 50 MG TABCR 100 MG PO (09:45)
[2025-08-05] MEDS: SPIRONOLACTONE 25 MG TABLET PO (09:45)
[2025-08-05] MEDS: SACUBITRIL/VALSARTAN 24-26 MG TABLET 1 TAB PO (09:45)
[2025-08-05] MEDS: LIDOCAINE 5% PATCH 2 PATCH TRANSDERM (09:45)
[2025-08-05] MEDS: APIXABAN 2.5 MG TABLET 5 MG BY MOUTH (09:45)
[2025-08-05] MEDS: EMPAGLIFLOZIN 10 MG TABLET PO (09:45)
--- NOTE | 2025-08-05 09:47 | PM.SD2 ---
Same Day Admit/Disch: HPI History of Present Illness Chief complaint: RIB FRACTURES Narrative: Claudio Devries is a 70 year old male who presented to the emergency department after he suffered a mechanical fall at home reports he stumbled into the side of his mattress with immediate right-sided chest pain. 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 patient reported right-sided chest pain and shortness of breaths worse with any movement. in the emergency department a chest x-ray showed patient to have right rib fractures 3rd through the 7th other labs reviewed and unremarkable was admitted for observation due to severe uncontrolled pain. [facility] Past Medical History Medical History Cystitis Tremor of both hands Hypothyroidism CAD (coronary artery disease) Ascending aorta dilatation Myocardial infarction Hyperlipidemia Hypertension Alcoholism A-fib Closed rib fracture Family History Family History Father Lung cancer Sibling Malignant neoplasm of prostate History of open heart surgery Social History Social History Smoking status: Never smoker Second hand tobacco smoke exposure: No Alcohol intake: former Drinks per week: 1 Substance use: never Substance use type: does not use Do You Feel Safe in your Home?: Yes Lack of Transportation: No Lack of Food: Never True Current Housing: I Have Housing Concerned About Future Housing: No Difficulty Paying Gas/Electric Bills: No Difficulty Paying for Meds: No Currently Unemployed: No Education: High School Diploma/GED Difficulty w/ Childcare or Family Care: No Spiritual care concerns: No Same Day Admit/Disch: Med Pre-admit Medications Home Medications ?Medication ?Instructions ?Recorded ?Confirmed ?Type duloxetine 30 mg capsule,delayed 30 mg PO DAILY 07/01/23 08/05/25 History release apixaban 5 mg tablet (Eliquis) 5 mg PO BID 10/25/24 08/05/25 History multivitamin with folic acid 400 1 tablet PO QAM #1 tablet 10/27/24 08/05/25 Rx mcg tablet (Thera) trazodone 50 mg tablet 50 mg PO HS PRN Insomnia #1 tablet 10/27/24 08/05/25 Rx metoprolol tartrate 25 mg tablet 50 mg PO Q12HR 03/06/25 08/05/25 History Held on 08/05/25. Instructions: Order Change gabapentin 300 mg capsule 300 mg PO .DAILY HS Neuropathy 07/30/25 08/05/25 History acetaminophen 325 mg capsule 650 mg PO Q4H PRN pain 07/31/25 08/05/25 History allopurinol 100 mg tablet 100 mg PO BID 07/31/25 08/05/25 History atorvastatin 80 mg tablet 80 mg PO QPM 07/31/25 08/05/25 History duloxetine 60 mg capsule,delayed 60 mg PO HS 07/31/25 08/05/25 History release ezetimibe 10 mg tablet 10 mg PO DAILY@0807/31/25 08/05/25 History fenofibric acid (choline) 45 mg 45 mg PO DAILY@0807/31/25 08/05/25 History capsule,delayed release levothyroxine 125 mcg tablet 125 mcg PO DAILY@0807/31/25 08/05/25 History lisinopril 10 mg tablet 10 mg PO DAILY@0807/31/25 08/05/25 History nifedipine 30 mg tablet,extended 30 mg PO DAILY@0807/31/25 08/05/25 History release 24 hr torsemide 10 mg tablet 10 mg PO DAILY@0807/31/25 08/05/25 History empagliflozin 10 mg tablet 10 mg PO DAILY #30 tabs 08/03/25 08/05/25 Rx (Jardiance) metoprolol succinate 100 mg 100 mg PO QAM #30 tabs 08/03/25 08/05/25 Rx tablet,extended release 24 hr (Toprol XL) sacubitril 24 mg-valsartan 26 mg 1 tab PO Q12HR #60 tabs 08/03/25 08/05/25 Rx tablet (Entresto) spironolactone 25 mg tablet 25 mg PO QAM #30 tabs 08/03/25 08/05/25 Rx lidocaine 5 % topical patch 2 patch transdermal DAILY #30 ea 08/05/25 Rx (Lidoderm) oxycodone-acetaminophen 5 mg-325 1 tablet PO Q6-8H PRN Pain Rated 08/05/25 Rx mg tablet 4-6 #20 tabs Review of Systems Review of Systems All systems reviewed & are unremarkable except as noted in HPI and below Exam Const: General: no acute distress and uncomfortable Other: chronically ill male uncomfortable with movement HENMT: Mouth: Yes moist mucous membranes Eyes: General: appearance normal, both eyes and all related structures Sclera: sclerae normal Pupils: Equal, round and reactive pupils present Neck: Neck: supple and no JVD Resp: Effort & Inspection: Actively coughing, decreased respiratory effort and uses accessory muscles Auscultation: clear to auscultation bilaterally Cardio: Rate: regular rate Rhythm: regular rhythm GI: GI Palp: Yes Soft to palpation Auscultation: normal bowel sounds Skin: General skin exam: normal color and no rashes or lesions noted Wounds: no wounds Neuro: General: gait normal Speech: normal speech Motor exam (neuro): 5/5 motor strength present throughout Sensory Exam: normal sensation Extrem: General: normal to inspection Psych: Mental Status: mental status grossly normal Affect: normal affect DS: Data Data Completed and Pending Labs on day of discharge: Labs from last 24 hours 08/05/25 08/05/25 09:13 03:15 WBC 6.7 7.1 RBC 4.00 L 4.13 L Hgb 13.3 13.7 Hct 40.8 41.5 MCV 102.0 100.5 MCH 33.3 H 33.2 H MCHC 32.6 33.0 RDW 13.5 13.3 Plt Count 266 278 MPV 9.3 9.5 Immature Gran % (Auto) 1.3 H Neut % (Auto) 73.8 H Lymph % (Auto) 13.2 L [place] % (Auto) 10.2 Eos % (Auto) 1.1 Baso % (Auto) 0.4 Lymph # (Auto) 0.93 L [place] # (Auto) 0.72 Eos # (Auto) 0.08 Baso # (Auto) 0.03 Abs Immat Gran (auto) 0.09 H Absolute Neuts (auto) 5.22 Absolute Nucleated RBC 0.00 Nucleated RBC % 0.0 PT 11.0 INR 1.0 APTT 27.6 Sodium 136 L 138 Potassium 5.3 H 5.1 H Chloride 100 102 Carbon Dioxide 27 26 Anion Gap 9 10 BUN 39 H 38 H Creatinine 2.52 H 2.00 H Estim Creat Clear Calc 26 32 Estimated GFR 25 L 33 L Glucose 230 H 130 H Calculated Osmolality 298 H 297 H Calcium 9.5 9.9 Magnesium 2.1 Total Bilirubin 1.3 1.3 AST 38 50 ALT 27 31 Alkaline Phosphatase 67 69 Total Protein 7.7 8.9 H Albumin 3.8 4.1 DS: Summary Hospital Course Reason for hospitalization: mechanical fall/ rib fractures/ pain management Hospital Course: Claudio Devries is a 70 year old male who presented to the emergency department after he suffered a mechanical fall at home reports he stumbled into the side of his mattress with immediate right-sided chest pain. 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 patient reported right-sided chest pain and shortness of breaths worse with any movement. in the emergency department a chest x-ray showed patient to have right rib fractures 3rd through the 7th other labs reviewed and unremarkable was admitted for observation due to severe uncontrolled pain. Hospital Course: Patient was admitted to the medical unit on observation was initiated on IV morphine for pain management. Patient is seen with better control of pain which time I initiated oral Percocet added a lidocaine patch and incentive spirometer. Patient denied any chest pain, shortness a breath, nausea, vomiting did endorse pain with inspiration expiration secondary to rib fractures. patient was discharged home on oral Percocet for pain management including lidocaine patches in the incentive spirometer advised to continue with the incentive spirometer to avoid pneumonia provide better lung expansion. labs reviewed and unremarkable vitals stable oxygenating on room air. Status at Discharge Functional status at discharge: independent ambulation Overall status at discharge: patient is progressing back to baseline Time Spent with Patient Time attestation: Total time spent providing and/or coordinating discharge services: Time spent: Greater than 30 minutes DS: Admitting Diagnosis Discharge Date 08/05/2025 Admitting Diagnosis mechanical fall/ rib fractures DS: Discharge Diagnosis Discharge Diagnosis (1) Heart failure with reduced ejection fraction (HFrEF, <= 40%) and combined systolic and diastolic dysfunction: Code(s): I50.40 - Unspecified combined systolic (congestive) and diastolic (congestive) heart failure Status: Acute (2) Hypertension: Qualifiers: Hypertension type: primary hypertension Qualified Code(s): I10 - Essential (primary) hypertension Code(s): I10 - Essential (primary) hypertension Status: Acute (3) A-fib: Qualifiers: Atrial fibrillation type: unspecified Qualified Code(s): I48.91 - Unspecified atrial fibrillation Code(s): I48.91 - Unspecified atrial fibrillation Status: Acute (4) Multiple fractures of ribs of right side: Qualifiers: Encounter type: initial encounter Fracture type: closed Qualified Code(s): S22.41XA - Multiple fractures of ribs, right side, initial encounter for closed fracture Code(s): S22.41XA - Multiple fractures of ribs, right side, initial encounter for closed fracture Status: Acute (5) Accidental fall: Qualifiers: Encounter type: initial encounter Qualified Code(s): W19.XXXA - Unspecified fall, initial encounter Code(s): W19.XXXA - Unspecified fall, initial encounter Status: Acute (6) Closed rib fracture: Qualifiers: Encounter type: initial encounter Laterality: right Rib fracture type: multiple ribs Qualified Code(s): S22.41XA - Multiple fractures of ribs, right side, initial encounter for closed fracture Code(s): S22.39XA - Fracture of one rib, unspecified side, initial encounter for closed fracture Status: Acute Discharge Plan Discharge Attending physician on discharge: Timothy Montoya Consulting providers: Maria Del Rosario Yuen Discharging Clinician: Maria Del Rosario Yuen Anticipated Discharge Date/Time: 08/05/25 10:02 Patient Disposition: Home Activity: as tolerated Diet: low sodium Discharge Instructions: 1). rib fractures take oral Percocet as needed may also use acetaminophen for mild pain lidocaine patch to right side continue to use incentive spirometer pillow splinting with cough How can you care for yourself at home? ? Keep track of any new symptoms or changes in your symptoms. ? Rest until you feel better. ? Be safe with medicines. Take your medicines exactly as prescribed. Call your doctor if you think you are having a problem with your medicine. ? Do not drive after taking a prescription pain medicine. ? Ensure to follow-up with primary care physician as indicated and provide updated medication list provided to you at discharge. When should you call for help? Call 911 anytime you think you may need emergency care. For example, call if: ? You passed out (lost consciousness). Call your doctor now or seek immediate medical care if: ? You have new symptoms like fever, difficulty breathing, Chest pain, vomiting, or rash. ? You have new or different pain. ? You are confused and are having trouble thinking clearly. ? Your symptoms are getting worse. Watch closely for changes in your health, and be sure to contact your doctor if: ? You do not get better as expected. Patient Instructions: Antibiotic Form, Rib Fracture (DC) Patient Language: Maori Stand Alone Forms: General Discharge Information Follow-up/Referrals: Anne Kendrick MD [Primary Care Provider, Family Practice] - 2 weeks Discharge Medications: New oxycodone-acetaminophen 5-325 mg Tablet 1 tablet PO Q6-8H PRN (Reason: Pain Rated 4-6) Qty: 20 0RF lidocaine [Lidoderm] 5 % Adhesive Patch,Medicated 2 patch transdermal DAILY Qty: 30 0RF sennosides-docusate sodium [Senna with Docusate Sodium] 8.6-50 mg tablet 1 tab-cap PO HS Qty: 30 0RF Continued duloxetine 30 mg capsule,delayed release(DR/EC) 30 mg PO DAILY Eliquis 5 mg Tablet 5 mg PO BID Patient Comments: pt gets eliquis samples from Dr. Anne Kendrick's office ([phone], ext [phone]). has been taking since 03/2023 per momo trazodone 50 mg Tablet 50 mg PO HS PRN (Reason: Insomnia) Qty: 1 0RF Patient Comments: 1-2 tablets at bedtime as needed. multivitamin with folic acid [Thera] 400 mcg Tablet 1 tablet PO QAM Qty: 1 0RF gabapentin 300 mg capsule 300 mg PO .DAILY HS acetaminophen 325 mg capsule 650 mg PO Q4H PRN (Reason: pain) Patient Comments: 1-3 pain scale nifedipine 30 mg tablet extended release 24hr 30 mg PO DAILY@0800 atorvastatin 80 mg tablet 80 mg PO QPM torsemide 10 mg tablet 10 mg PO DAILY@0800 allopurinol 100 mg tablet 100 mg PO BID levothyroxine 125 mcg tablet 125 mcg PO DAILY@0800 ezetimibe 10 mg tablet 10 mg PO DAILY@0800 duloxetine 60 mg capsule,delayed release(DR/EC) 60 mg PO HS fenofibric acid (choline) 45 mg capsule,delayed release(DR/EC) 45 mg PO DAILY@0800 metoprolol succinate [Toprol XL] 100 mg Tablet Extended Release 24 Hr 100 mg PO QAM Qty: 30 0RF spironolactone 25 mg Tablet 25 mg PO QAM Qty: 30 0RF Jardiance 10 mg Tablet 10 mg PO DAILY Qty: 30 0RF sacubitril-valsartan [Entresto] 24-26 mg Tablet 1 tab PO Q12HR Qty: 60 0RF Discontinued metoprolol tartrate 25 mg Tablet 50 mg PO Q12HR lisinopril 10 mg tablet 10 mg PO DAILY@0800 Date of admission: 08/05/25 04:24 Primary Care Provider: Anne Kendrick Admitting Provider: Timothy Montoya Attending physician on admission: Timothy Montoya Condition: Stable Quality VTE Prophylaxis VTE prophylaxis: pharmacologic ordered -Patient's previous records reviewed on admission -ER notes reviewed in detail on admission -discussed all findings and current treatment plan with patient/Family/POA -Consultations reviewed for recommendations -Patient's disposition for safe discharge discussed with complex case manager Dictation performed by [employer] direct speech recognition software, therefore mold tooler variants and typographical errors may occur. Hospitalist MIPS Advance Care Plan I have confirmed that the patient's Advanced Care Plan is present, code status is documented, or surrogate decision maker is listed in patient medical record.: Yes Medication Reconciliation I have utilized all available resources to obtain, update and review the patients current medications (includes all prescriptions, OTC, herbals, cannabis, and nutritional supplements).: Yes The patient is not eligible for med reconciliation; the patient is in a emergent medical situation where delaying treatment would jeopardize the patients health.: No Heart Failure (Exclusion) Patient has history of Heart Transplant or Left Ventricular Assistive Device?: No IF YES, STOP HERE Heart Failure (Qualifier) Patient has current or prior documentation of LVEF less than or equal to 40%, or mod/servere depressed LVSF?: No IF NO, STOP HERE
--- NOTE | 2025-08-05 11:05 | PC.NURSE ---
Discharge instructions reviewed with patient. 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 Patient assisted into wheelchair and taken downstairs to vehicle.
--- NOTE | 2025-08-06 09:09 | PC.NURSE ---
Discharge call back completed, doing well, no questions regarding medications or their side effects, no questions regarding dc instructions
== END 2025-08-05 11:05 | disposition home or self-care (01) ==
LOC: CHSED 02:53 → CHS2ND 06:44
PROVIDERS: Nurse Practitioner Family; Admitting Provider Internal Medicine; Emergency Provider Internal Medicine Critical Care Medicine; PCP Family Medicine; Visit Provider Internal Medicine
DX: S22.41XA Multiple fractures of ribs, right side, initial encounter for closed fracture (principal); W01.190A Fall on same level from slipping, tripping and stumbling with subsequent striking against furniture, initial encounter; Z91.81 History of falling; R29.6 Repeated falls; I11.0 Hypertensive heart disease with heart failure; I50.40 Unspecified combined systolic (congestive) and diastolic (congestive) heart failure; I25.10 Atherosclerotic heart disease of native coronary artery without angina pectoris; I48.91 Unspecified atrial fibrillation; I25.2 Old myocardial infarction; E03.9 Hypothyroidism, unspecified; E78.5 Hyperlipidemia, unspecified
CPT/HCPCS: 36415; 70450; 71250; 72131; 72192; 80053; 83735; 85025; 85027; 85610; 85730; 96372; 96374; 96375; 99199; 99285; A9270; J1171

== ENCOUNTER 2025-09-24 02:41 | Emergency (ER) | payer MEDICARE, SELFPAY ==
--- NOTE | ~2025-09-24 | CT_ITS ---
CT HEAD NON-CONTRAST CT C-SPINE Clinical History: FALL/HIT RIGHT SIDE FOREHEAD Comparison: CT brain 08/05/2025 CT C-spine 06/15/2025 Technique: Unenhanced axial images skull base to vertex. Coronal, sagittal reformats. Axial images thoracic inlet to skull base. Sagittal and coronal reformats. CT images acquired with automatic exposure control for dose reduction DLP: 608 mGy-cm Findings: Head: White matter changes, typically chronic microvascular ischemic disease. Sulci, ventricles: Unremarkable. No intracerebral hemorrhage. No evidence acute territorial infarct. No mass effect, midline shift, intra-/extra-axial fluid collection. Bony calvarium intact. Visualized paranasal sinuses: Mucosal thickening left maxillary. Mastoid air cells: Clear. Right parietal scalp contusion. C-spine: No acute fracture or listhesis. Vertebral bodies normal height and alignment. Mild degenerative changes. Disc spaces maintained. Prevertebral soft tissues within normal limits. Visualized lung apices: Clear. Visualized thyroid: Unremarkable. No enlarged cervical nodes. IMPRESSION: HEAD: 1. No acute intracranial findings. C-SPINE: 1. No acute fracture. Reviewed, dictated and finalized at location R. LEX CASE MANAGER IMPRESSION: HEAD: 1. No acute intracranial findings. C-SPINE: 1. No acute fracture.
--- NOTE | ~2025-09-24 | CT_ITS ---
EXAMINATION:CT diagnostic chest wo con DATE: 09/24/2025 03:38 INDICATION: Right chest pain. Fall. TECHNIQUE: Computed tomography (CT) of the chest was performed without intravenous contrast. Automated exposure control and iterative reconstruction technique were employed. The dose-length product (DLP) was 459.18 mGy-cm. COMPARISON: Chest CT 08/05/2025 FINDINGS: The lungs demonstrate mild atelectasis. There is mild contusion of right lung upper lobe. There are small pleural effusions. Cardiomegaly is noted. There are coronary artery calcifications. There are calcifications of the aortic valve. No pericardial effusion. There is mild bilateral gynecomastia. There are multiple old healed bilateral rib fractures. Again seen are healing fractures of right third, fourth, fifth, sixth, ninth, and 10th ribs with callus formation. There are acute fractures of right seventh and 10th ribs. There is mild chronic anterior wedging of multiple thoracic vertebral bodies. There is mild thoracic spondylosis. Thoracic kyphosis is noted. IMPRESSION: 1. Acute fractures of right seventh and 10th ribs. 2. Multiple healing subacute right rib fractures. 3. Mild contusion of right lung upper lobe. 4. Small pleural effusions. Reviewed, dictated and finalized at location E. FER
[2025-09-24 02:43] VITALS: BP 157/94; PULSE 84; RESP 22; TEMP 36.1; O2SAT 100
--- NOTE | 2025-09-24 03:01 | ED.FALL ---
HPI - Fall General Chief Complaint: Fall Stated Complaint: head injury and right side ribs Time Seen by Provider: 09/24/25 03:00 Source: patient Mode of arrival: ambulatory Limitations: no limitations History of Present Illness HPI Narrative: PATIENT WAS VACUUMING, GOING BACKWARD, LOST BALANCE AND FELL BACKWARD LANDED ON THE EDGE OF A COUCH THEN TO THE FLOOR, STRUCK THE BACK OF HEAD AND BACK ON THE FLOOR, SCRAPED THE RIGHT SIDE OF THORACIC BACK CAUSING ABRASION, CONTUSION AND HEMATOMA 7 HOURS PRIOR TO ARRIVAL. LAST TETANUS SHOT WAS 2 YEARS AGO PATIENT DROVE HIMSELF TO THE EMERGENCY ROOM, DENIES ANY LOSS OF CONSCIOUSNESS OR NECK MD complaint: fall Related Data Home Medications ?Medication ?Instructions ?Recorded ?Confirmed ?Last Taken ?Type duloxetine 30 mg capsule,delayed 30 mg PO DAILY 07/01/23 08/05/25 08/04/25 History release apixaban 5 mg tablet (Eliquis) 5 mg PO BID 10/25/24 08/05/25 08/04/25 History gabapentin 300 mg capsule 300 mg PO .DAILY HS Neuropathy 07/30/25 08/05/25 08/04/25 History acetaminophen 325 mg capsule 650 mg PO Q4H PRN pain 07/31/25 08/05/25 07/30/25 12:30 History 650 mg allopurinol 100 mg tablet 100 mg PO BID 07/31/25 08/05/25 08/04/25 History atorvastatin 80 mg tablet 80 mg PO QPM 07/31/25 08/05/25 08/04/25 History duloxetine 60 mg capsule,delayed 60 mg PO HS 07/31/25 08/05/25 08/04/25 History release ezetimibe 10 mg tablet 10 mg PO DAILY@79907/31/25 08/05/25 08/04/25 History fenofibric acid (choline) 45 mg 45 mg PO DAILY@79907/31/25 08/05/25 08/04/25 History capsule,delayed release levothyroxine 125 mcg tablet 125 mcg PO DAILY@79907/31/25 08/05/25 08/04/25 History nifedipine 30 mg tablet,extended 30 mg PO DAILY@79907/31/25 08/05/25 08/04/25 History release 24 hr torsemide 10 mg tablet 10 mg PO DAILY@79907/31/25 08/05/2514/25 History Allergies Allergy/AdvReac Type Severity Reaction Status Date / Time magnesium sulfate AdvReac Intermediate Flushing Verified 09/24/25 02:47 Review of Systems Review of Systems: All systems reviewed & are unremarkable except as noted in HPI and below PMFSH Past Medical History Medical History Cystitis Tremor of both hands Hypothyroidism CAD (coronary artery disease) Ascending aorta dilatation Myocardial infarction Hyperlipidemia Hypertension Alcoholism A-fib Closed rib fracture Family History Family History Father Lung cancer Sibling Malignant neoplasm of prostate History of open heart surgery Social History Social History Smoking status: Never smoker Second hand tobacco smoke exposure: No Alcohol intake: former Drinks per week: 1 Substance use: never Substance use type: does not use Do You Feel Safe in your Home?: Yes Lack of Transportation: No Lack of Food: Never True Current Housing: I Have Housing Concerned About Future Housing: No Difficulty Paying Gas/Electric Bills: No Difficulty Paying for Meds: No Currently Unemployed: No Education: High School Diploma/GED Difficulty w/ Childcare or Family Care: No Spiritual care concerns: No Exam Narrative: GENERAL APPEARANCE: WELL-DEVELOPED, WELL-NOURISHED SKIN: NORMAL COLOR HEAD: NORMOCEPHALIC, SCALP ABRASION/SCRATCH, NO ACTIVE BLEEDING EYES: CLEAR CONJUNCTIVA ENT: OROPHARYNX NORMAL, EARS NORMAL, NOSE NORMAL NECK: SUPPLE, NONTENDER CHEST AND RESPIRATORY: AIRWAY PATENT, NO RESPIRATORY DISTRESS, NO ACCESSORY MUSCLE USE HEART: REGULAR RATE/RHYTHM ABDOMEN: SOFT, NONTENDER, NO ORGANOMEGALY, QUIET BOWEL SOUNDS VASCULAR: NORMAL PERIPHERAL PULSES, NORMAL CAPILLARY REFILL. MUSCULOSKELETAL: ABRASION, HEMATOMA RIGHT SIDE OF THE BACK DIFFUSELY TENDER, BRUISED NEUROLOGIC: ALERT AND ORIENTED ?3, MANAGER FIELD INVESTIGATIONS IS NORMAL TESTED, NO GROSS MOTOR DEFICIT Course Vital Signs Vital signs: Vital Signs Temperature 36.1 C L 09/24/25 02:43 Pulse Rate 84 09/24/25 02:43 Respiratory Rate 22 H 09/24/25 02:43 Blood Pressure 157/94 H 09/24/25 02:43 Pulse Oximetry 100 09/24/25 02:43 Oxygen Delivery Room Air 09/24/25 02:43 Temperature 36.1 C L 09/24/25 02:43 Pulse Rate 84 09/24/25 02:43 Respiratory Rate 22 H 09/24/25 02:43 Blood Pressure 157/94 H 09/24/25 02:43 Pulse Oximetry 100 09/24/25 02:43 Oxygen Delivery Room Air 09/24/25 02:43 MDM - Fall MDM Narrative Medical decision making narrative: PATIENT TRIPPED AND FELL AT HOME GROUND LEVEL FALL LANDED ON THE EDGE OF A COUCH. NO LOSS OF CONSCIOUSNESS, 7 HOURS LATER, DROVE HIMSELF TO THE EMERGENCY ROOM COMPLAINING OF HEADACHE AND BACK PAIN. VITAL SIGNS STABLE SHOWING BLOOD PRESSURE 157/94, HEART RATE 84, RESPIRATION 22, TEMPERATURE 36.1?, SATURATION 100% ON ROOM AIR PHYSICAL EXAMINATION SHOWING 3 CM LACERATION OCCIPITAL AREA, NO GAPPING, NO ACTIVE BLEEDING DRIED BLOOD AROUND, ABRASION, CONTUSION AND HEMATOMA AT THE RIGHT SIDE OF THE THORACIC BACK DIFFUSELY TENDER OTHERWISE WITHIN NORMAL LIMIT CT HEAD WITHOUT CONTRAST SHOWED NO ACUTE ABNORMALITY CT CERVICAL SPINE WITHOUT CONTRAST SHOWED NO ACUTE ABNORMALITY CT CHEST WITHOUT CONTRAST SHOWED RIGHT 3RD THROUGH 8TH RIB FRACTURES, MILD PLEURAL EFFUSION, MILD PULMONARY CONTUSION RIGHT UPPER LOBE THE ED IV FLUID STARTED, 4 MG MORPHINE 4 MG OF ZOFRAN IV GIVEN, PATIENT IS ACCEPTED FOR TRANSFERRED TO [facility] EMERGENCY ROOM DISCUSSED WITH DR. SALINAS. Differential Diagnosis Differential diagnosis: Likely compression fracture, concussion without loss of consciousness and other (RIB FRACTURE, PULMONARY CONTUSION, HEMOTHORAX, NECK FRACTURE, INTRACRANIAL BLEED) Imaging Data Radiologist's impression: CT HEAD AND CT CERVICAL SPINE WITHOUT CONTRAST SHOWED NO ACUTE ABNORMALITY CT CHEST WITHOUT CONTRAST SHOWED RIGHT 3RD THROUGH 8TH RIB FRACTURES, MILD PLEURAL EFFUSION, MILD PULMONARY CONTUSION RIGHT UPPER LOBE Critical Care Time Critical Care Time Critical Care Time: No Discharge Plan Discharge Clinical Impression: Laceration of scalp, Multiple rib fractures involving four or more ribs, Contusion of lung, Hemothorax on right, Anticoagulant long-term use Patient Disposition: Acute Care Hospital Condition: Guarded Prognosis Additional Instructions: TRANSFERRED TO [facility] DR. SALINAS Patient Language: Japanese Prescriptions: No Action oxycodone-acetaminophen 5-325 mg Tablet 1 tablet PO Q6-8H PRN (Reason: Pain Rated 4-6) Qty: 20 0RF lidocaine [Lidoderm] 5 % Adhesive Patch,Medicated 2 patch transdermal DAILY Qty: 30 0RF sennosides-docusate sodium [Senna with Docusate Sodium] 8.6-50 mg tablet 1 tab-cap PO HS Qty: 30 0RF duloxetine 30 mg capsule,delayed release(DR/EC) 30 mg PO DAILY Eliquis 5 mg Tablet 5 mg PO BID Patient Comments: pt gets eliquis samples from Dr. Anne Kendrick's office ([phone], ext [phone]). has been taking since 03/2023 per momo trazodone 50 mg Tablet 50 mg PO HS PRN (Reason: Insomnia) Qty: 1 0RF Patient Comments: 1-2 tablets at bedtime as needed. multivitamin with folic acid [Thera] 400 mcg Tablet 1 tablet PO QAM Qty: 1 0RF gabapentin 300 mg capsule 300 mg PO .DAILY HS acetaminophen 325 mg capsule 650 mg PO Q4H PRN (Reason: pain) Patient Comments: 1-3 pain scale nifedipine 30 mg tablet extended release 24hr 30 mg PO DAILY@0800 atorvastatin 80 mg tablet 80 mg PO QPM torsemide 10 mg tablet 10 mg PO DAILY@0800 allopurinol 100 mg tablet 100 mg PO BID levothyroxine 125 mcg tablet 125 mcg PO DAILY@0800 ezetimibe 10 mg tablet 10 mg PO DAILY@0800 duloxetine 60 mg capsule,delayed release(DR/EC) 60 mg PO HS fenofibric acid (choline) 45 mg capsule,delayed release(DR/EC) 45 mg PO DAILY@0800 metoprolol succinate [Toprol XL] 100 mg Tablet Extended Release 24 Hr 100 mg PO QAM Qty: 30 0RF spironolactone 25 mg Tablet 25 mg PO QAM Qty: 30 0RF Jardiance 10 mg Tablet 10 mg PO DAILY Qty: 30 0RF sacubitril-valsartan [Entresto] 24-26 mg Tablet 1 tab PO Q12HR Qty: 60 0RF Follow-up/Referrals: Anne Kendrick MD [Primary Care Provider, Family Practice]
[2025-09-24] MEDS: ACETAMINOPHEN 325 MG TABLET 650 MG PO (03:08)
[2025-09-24] MEDS: IBUPROFEN 600 MG TABLET PO (03:08)
--- OUTSIDE RECORDS SUMMARY | 2025-09-24 03:08 | XMS_ITS | Clinical Summary ---
Author Organization [facility] Address [address] [place] [address] Care Team Providers Care Senior Java J2Ee Developer Name Role Phone Emeka Garcia MD Unavailable [phone] Kain Childers MD Unavailable Kahlil Peres MD Primary Care Provider [phone] Melany Oseguera PA-C Unavailable [phone] Allergies Active Allergy Reactions Criticality Noted Date Comments Magnesium Hives 12/30/2022 Received 2 g IVPB one time dose on December and September of 2023 Medications fenofibrate (TRICOR) 48 MG tablet Take 1 [...] route as needed for Opioid reversal. Active Vitamin B12 100 MCG tablet Take [...] tablet (30 mg total) by mouth daily. 5 Active Choline Fenofibrate (FENOFIBRIC ACID) 45 MG CAPSULE DELAYED RELEASE Take 1 capsule by mouth daily. 5 Active levothyroxine (SYNTHROID) 125 MCG tablet Take 1 tablet (125 mcg total) by mouth daily. 5 Active gabapentin (NEURONTIN) 300 MG capsule 1 (one) capsule by mouth at bedtime 5 Active allopurinol (ZYLOPRIM) 100 MG tablet Take 2 tablets (200 mg total) by mouth daily. 5 Active ELIQUIS 5 MG tabletIndication s:Persistent atrial fibrillation (CMS/HCC HHS/HCC) Take 1 tablet (5 mg total) by mouth 2 (two) times daily. Patient reports only taking once per day due to cost of medication 180 tablet 3 5 Active ELIQUIS 5 MG tablet Take 1 tablet (5 mg total) by mouth 2 (two) times daily. Patient reports only taking once per day due to cost of medication 2 025 Discontin ued(Reord er) pantoprazole EC (PROTONIX) 40 MG tablet Take 1 tablet (40 mg total) by mouth daily. 025 Discontin ued(Thera py completed ) Active Problems Problem Noted Date Diagnosed Date Longstanding persistent atrial fibrillation 04/21 Chronic anticoagulation 05/01/2025 Chronic systolic CHF (congestive heart failure) 05/01/2025 Parotiditis 11/30/2024 NSTEMI (non-ST elevated myocardial infarction) 0 12/26/2023 Multiple fractures of ribs, bilateral, initial encounter for closed fracture 10/02/2023 Fall 10/02/2023 SOB (shortness of breath) on exertion 12/30/2022 Encounters Date Type Department Care Team Description 09/16/2025 8:00 AM CDT Office Visit [facility] [place] [id number] [place] [address] Kain Childers MD Atrial Fibrillation; Coronary Artery Disease; Hypertension 09/16/2025 7:45 AM CDT - 09/16/2025 11:59 PM CDT Hospital Encounter [facility] [address] [place] [address] Kain Childers MD Discharge Disposition: Home or Self Care (Routine Discharge) 09/16/2025 Travel 09/13/2025 Telephone [facility] [address] [place] [address] Kain Childers MD Appointment Reminder 09/04/2025 Orders Only [facility] [address] [place] [address] Kain Childers MD 09/04/2025 Telephone [facility] [address] [place] [address] Kain Childers MD Appointment Request 08/19/2025 2:10 PM CDT - 08/19/2025 11:59 PM CDT Hospital Encounter [facility] [address] [place] [address] Dana Hauser NP Discharge Disposition: Home or Self Care (Routine Discharge) 08/19/2025 Travel from Last 3 Months Immunizations Immunization Administration Dates Next Due Tdap (Boostrix) 07/11/2024 Tdap (Generic) 06/03/2015 Social History Tobacco Use Types Packs/Day Years Used Date Smoking Tobacco: Never Smokeless Tobacco: Never Tobacco Cessation:Counseling Given: Not Answered Alcohol Use Standard Drinks/Week Comments Yes 16.7 (1 standard drink = 0.6 oz pure alcohol) [facility] Utilities Answer Date Recorded In the past 12 months has [facility] [employer], oil, or water [employer] threatened to shut off services in your [...] any time in the past 12 m [facility], were you homeless or living in a long term (including now)? Patient unable to answer 11/30/2024 Sex and Gender Information Value Date Recorded Sex Assigned at Male 12/04/2024 9:12 AM FARM EQUIPMENT TECHNICIAN Legal Sex Male 5:48 PM FARM EQUIPMENT TECHNICIAN Gender Identity Not on file Sexual Orientation Not on file Last Filed Vital Signs Vital Sign Reading Time Taken Comments Blood Pressure 118/63 09/16/2025 8:10 AM CDT Pulse 78 09/16/2025 8:10 AM CDT Temperature 36.5 C (97.7 F) 12/18/2024 8:01 AM FARM EQUIPMENT TECHNICIAN Respiratory Rate 18 09/16/2025 8:10 AM CDT Oxygen Saturation 94% 09/16/2025 8:10 AM CDT Inhaled Oxygen Concentration - - Weight 79.6 kg (175 lb 6.4 oz) 09/16/2025 8:10 A M CDT Height 177.8 cm (5' 10) 09/16/2025 8:10 AM CDT Body Mass Index 25.17 09/16/2025 8:10 AM CDT Plan of Treatment Upcoming Encounters Date Type Department Care Team (Late st Contact Info) Description 10/10/2025 8:00 AM FARM EQUIPMENT TECHNICIAN Appointment [facility] [address] [place] [address] Kain Childers MD [address] [place] [address] 11/19/2025 1:00 PM FARM EQUIPMENT TECHNICIAN Appointment [facility] [address] [place] [address] [place] [address] Kain Childers MD [address] [place] [address] 11/27/2025 11:30 AM FARM EQUIPMENT TECHNICIAN Office Visit [facility] [place] [phone] Kain Childers MD [address] [place] [address] Health Maintenance Due Date Last Done Comments Colorectal Cancer Screening Colonoscopy (10 Years) 1955 Hepatitis C 1973 Pneumococcal Vaccine: 50+ Years (1 of 2 - PCV) 1974 Zoster Vaccines (1 of 2) 2005 RSV Immunization or 60+ Years (1 - Risk 60-74 years 1-dose series) 2015 Annual Medicare Wellness Visit 2020 ASCVD LDL 12/27/2024 12/27/2023 COVID-19 Vaccine (1 - 2024-2 6 season) 2025 Influenza Adult (#1) 2025 DTaP, Tdap and Td Vaccines ( 3 - Td or Tdap) 07/11/2034 07/11/2024, 06/03/2015 Hepatitis A Vaccines Aged Out No long er eligible based on patient's age to complete this topic Meningococcal B Vaccine Aged Out No l [...] upon discharge from hospital Lifestyle Vicky Moreira critical care nurse practitioner Procedure Name Priority Date/Time Associated Diagnosis Comments ECG 12-LEAD Routine 09/16/2025 8:00 AM CDT Persistent atrial fibrillation (CMS/HCC HHS/HCC) Essential (primary) hypertension Hyperlipidemia, mixed NSTEMI (non-ST elevated myocardial infarction) (CMS/HCC HHS/HCC) Aortic root enlargement Nonrheumatic aortic valve insufficiency Other cardiomyopathy (CMS/HCC HHS/HCC) ECG 12-LEAD Routine 08/19/2025 2:27 PM CDT Chronic atrial fibrillation (CMS/HCC HHS/HCC) LIPID PANEL Routine 12/27/2023 7:08 AM FARM EQUIPMENT TECHNICIAN from Last 3 Months or Most Recently Relevant to Health Maintenance Results * ECG 12 lead (09/16/2025 8:00 AM CDT) Only the most recent of2 resultswithin the time period is included. ECG QT 408 [facility] Tappr RAD ECG QTC 470 [facility] Tappr RAD 09/16/2025 8:00 AM CDT Narrative [facility] - 09/16/2025 10:39 PM CDT [address] [place] [address] Test Date: 2025-09-16 Pat Name: TERRI SALDIVAR Department: 3 Room: Gender: Male Technician Support Engineer: : 1955 Requested By: KAIN CHILDERS Order Number: [id number] Reading MD: Kain Childers Measurements Intervals Plato Rate: 79 P: 0 VA: 0 QRS: -54 QRSD: 118 T: 60 QT: 408 QTc: 470 Interpretive Statements ATRIAL FIBRILLATION LEFT ANTERIOR FASCICULAR BLOCK [QRS AXIS <= -45, QR IN I, RS IN II] PROBABLE SEPTAL MYOCARDIAL INFARCTION , PROBABLY OLD [35 ms Q WAVE IN V1/V2] Procedure Note Kain Childers MD - 09/16/[address] [place] [address] Test Date: 2025-09-16 Pat Name: TERRI FRIZZO Department: 3 Room: Gender: Male Technician Support Engineer: : 1955 Requested By: KAIN CHILDERS Order Number: [id number] Reading MD: Kain Childers Measurements Intervals Plato Rate: 79 P: 0 VA: 0 QRS: -54 QRSD: 118 T: 60 QT: 408 QTc: 470 Interpretive Statements ATRIAL FIBRILLATION LEFT ANTERIOR FASCICULAR BLOCK [QRS AXIS <= -45, QR IN I, RS IN II] PROBABLE SEPTAL MYOCARDIAL INFARCTION , PROBABLY OLD [35 ms Q WAVE INV1/V2] us Kain Childers MD ECG ORDERABLES Final Result [facility] * LIPID PANEL (12/27/2023 7:08 AM FARM EQUIPMENT TECHNICIAN) CHOLESTEROL 131 MG/DL 12/27/2023 8:36 AM [facility] Comment:DESIRABLE: <200 TRIGLYCERIDES 124 MG/DL 12/27/2023 8:36 AM FARM EQUIPMENT TECHNICIAN [facility] Comment:<150 NORMAL HDL 54 >39 MG/DL 12/27/2023 8:36 AM [facility] LDL (CALCULATED) 52 MG/DL 12/27/19 24 8:36 AM [facility] Comment:<100 OPTIMAL VLDL CALCULATION 25 MG/DL 12/27/19 24 8:36 AM [facility] Comment:REFERENCE RANGE NOT ESTABLISHED CHOL/HDL RATIO 2.4 12/27/2023 8:36 AM [facility] Comment:REFERENCE RANGE NOT ESTABLISHED LDL/HDL 1.0 12/27/2023 8:36 AM [facility] Comment:REFERENCE RANGE NOT ESTABLISHED NON HDL CHOLESTEROL 77 MG/DL 12/27/2023 8:36 AM [facility] Comment:REFERENCE RANGE NOT ESTABLISHED 12/27/2023 7:08 AM FARM EQUIPMENT TECHNICIAN us Arline Calixto MD LABORATORY Final Res ult [facility] [address] [place] [address], [id number] from Last 3 Months or Most Recently Relevant to Health Maintenance Insurance MEDICARE Advance Directives Documents on File Type Date Recorded Patient Cook Restaurant Expl 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
--- OUTSIDE RECORDS SUMMARY | 2025-09-24 03:08 | XMS_ITS | Encounter Summary ---
Author Organization [facility] Address [address] [place] [address] Care Team Providers Care Latex Ribbon Machine Operator Name Role Phone Emeka Garcia MD Unavailable [phone] New Referring, Provider Primary Care Provider Un available Anne Kendrick MD Primary Care Provider [phone] Viv Seo MD Unavailable Kahlil Peres MD Primary Care Provider [phone] Melany Oseguera PA-C Unavailable + [phone] Encounter Details Date Type Department Care Team (Latest Contact Info) Description 10/02/2023 Hospital Encounter Tyler Bennett MD [address] [id number] Social History Tobacco Use Types Packs/Day Years Used Date Smoking Tobacco: Never Smokeless Tobacco: Never Alcohol Use Standard Drinks/Week Comments Yes 16.7 (1 standard drink = 0.6 oz pure alcohol) [facility] Utilities Answer Date Recorded In [...] place to sleep or slept in a skilled nursing (including now)? No 12/27/2023 Housing Stability Vital Sign Answer Varinder e Recorded In the last 12 months, was t here a time when you were not able to pay the mortgage or rent on time? No 11/30/2024 In the past 12 months, how m any times have you moved where you were living? 1 11/30/2024 At any time in the past 12 m [facility], were you homeless or living in a skilled nursing (including now)? Patient unable to answer 11/30/2024 Sex and Gender Information Value Date Recorded Sex Assigned at Male 12/04/2024 9:12 AM INTERIOR DECORATOR PAPERHANGING Legal Sex Male 5:48 PM INTERIOR DECORATOR PAPERHANGING Gender Identity Not on file Sexual Orientation [...] Status No Risk Indicated 11/30/2024 6:00 PM INTERIOR DECORATOR PAPERHANGING Reyes Burch RN Active * [place] Suicide Severity Rating Scale (Screener/Recent Self-Report) Question Answer Date of Assessment Author Status 1. Wish to be (Past 1 Month) No 11/30/2024 6:00 PM INTERIOR DECORATOR PAPERHANGING Ella Burch RN Acti ve 2. Non-Specific Active Suicidal Thoughts (Past 1 Month) No 11/30/2024 6:00 PM INTERIOR DECORATOR PAPERHANGING Ella Burch RN Acti ve 6. Suicidal Behavior (Lifetime) No 11/30/2024 6:00 PM INTERIOR DECORATOR PAPERHANGING Ella Burch RN Acti ve documented as of this encounter Mental Status * Question Answer Entry Date Author Status Because of a physical, mental, or emotional condition, do you have serious difficulty concentrating, remembering, or making decisions? Yes 11/30/2024 6:47 PM INTERIOR DECORATOR PAPERHANGING Ella Burch RN Active * Because of a physical, mental, or emotional condition, do you have serious difficulty concentrating, remembering, or making decisions? Answer Entry Date Author Status No 10/02/2023 2:18 PM INTERIOR DECORATOR PAPERHANGING Raul Adler RN Active documented in this encounter Plan of Treatment Upcoming Encounters Date Type Department Care Team (Late st Contact Info) Description 10/10/2025 8:00 AM INTERIOR DECORATOR PAPERHANGING [facility]ointment [facility] [address] [place] [address] Viv Seo MD [address] [place] [address] 11/19/2025 1:00 PM INTERIOR DECORATOR PAPERHANGING [facility]ointment [facility] [address] [place] [address] Viv Seo MD [address] [place] [address] 11/27/2025 11:30 AM INTERIOR DECORATOR PAPERHANGING Office Visit [facility] [address] [place] [address] Viv Seo MD [address] [place] [address] documented as of this encounter Goals Goal [...] Rule Out 12/19/2023 12/19/2023 12/19/2023 6:05 AM INTERIOR DECORATOR PAPERHANGING COVID-19 Rule Out 12/26/2023 12/26/2023 12/26/2023 5:39 PM INTERIOR DECORATOR PAPERHANGING documented as of this encounter Care Teams Latex Ribbon Machine Operator Relationship Specialty Start Date End Date New Referring, Provider PCP - General UNKNOWN PHYSICIAN SPECIALTY 10/02/23 10/04/23 Anne Kendrick MD [address] [facility] [place] [id number] PCP - General FAMILY PRACTICE 10/05/23 11/29/24 Kahlil Peres MD [address] [place], [place] [id number] PCP - General FAMILY PRACTICE 11/30/24 Emeka Garcia MD [address] [place] [id number] Consulting Physician CLINICAL CARDIAC ELECTROPHYSIOLOGY 03/30/23 Viv Seo MD [address] [place], [place] [address] Consulting Physician CARDIOVASCULAR DISEASE 05/11/24 Melany Oseguera PA-C [address] [place], [place] [address] Referring Physician PHYSICIAN DIRECTOR OF LAND ACQUISITION 04/01/25 documented as of this encounter
--- OUTSIDE RECORDS SUMMARY | 2025-09-24 03:08 | XMS_ITS | Encounter Summary ---
Author Organization [facility] Address [address] [place] [address] Care Team Providers Care Semiconductor Packages Sealer Name Role Phone Emeka Garcia MD Unavailable [phone] Anne Kendrick MD Primary Care Provider [phone] Viv Seo MD Unavailable Kahlil Peres MD Primary Care Provider [phone] Melany Oseguera PA-C Unavailable + [phone] Encounter Details Date Type Department Care Team (Late st Contact Info) Description 01/02/2024 Hospital Follow-up Call [facility] [address] [place] [address] Dipika Moseley, RN Social History Tobacco Use Types Packs/Day Years Used Date Smoking Tobacco: Never Smokeless Tobacco: Never Alcohol Use Standard Drinks/Week Comments Yes 0 (1 standard drink = 0.6 oz pur e alcohol) [facility] Utilities Answer Date Recorded In the [...] Sex Assigned at Male 12/04/2024 9:12 AM WOODWORKING MACHINE FEEDER Legal Sex Male 5:48 PM WOODWORKING MACHINE FEEDER Gender Identity Not on file Sexual Orientation Not on file documented as of this encounter Functional Status * Are you deaf or do you have serious difficulty hearing Answer Date of Assessment Author Status No 12/27/2023 8:25 AM Em Spann, RN Active * Are you blind or [...] st Contact Info) Description 10/10/2025 8:00 AM WOODWORKING MACHINE FEEDER Appointment [facility] [address] [place] [address] Viv Seo MD [address] [place] [address] 11/19/2025 1:00 PM WOODWORKING MACHINE FEEDER [facility]ointment [facility] [address] [place] [address] Viv Seo MD [address] [place] [address] 11/27/2025 11:30 AM WOODWORKING MACHINE FEEDER Office Visit [facility] [address] [place] [address] Viv Seo MD [address] [place] [address] documented as of this encounter Goals Goal Patient Goal Type Associated Problems Recent Progress Patient-Stated? Author Patient will return to prior living situation and remain independent in ADLs upon discharge from hospital Lifestyle No Manuel, Vicky J, RN documented as of this encounter Visit Diagnoses Not on filedocumented in this encounter Care Teams Semiconductor Packages Sealer Relationship Specialty [place] [address] [place] [address] [place] [address] PCP - General FAMILY PRACTICE 10/05/23 11/29/24 Kahlil Peres MD [address] [place] [address] PCP - General [facility] PR[facility] 11/30/24 Emeka Garcia MD [address] [place] [address] Consulting Physician CLINICAL CARDIAC ELECTROPHYSIOLOGY 03/30/23 Viv Seo MD [address] [place], [place] [phone] Consulting Physician CARDIOVASCULAR DISEASE 05/11/24 Melany Oseguera PA-C [address] [place], [place] [phone] Referring Physician PHYSICIAN SENIOR MAJOR GIFTS OFFICER 04/01/25 documented as of this encounter
--- OUTSIDE RECORDS SUMMARY | 2025-09-24 03:08 | XMS_ITS | Clinical Summary ---
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 This disclosure is being madepursuant to the Care Everywhere program and may not contain all information available regarding this patient. Last updated 18.[facility] [employer] Allergies Active Allergy Reactions Criticality Noted Date Comments Magnesium Urticaria Medium 12/30/2022 Received 2 g IVPB one time dose on December and September of 2023 Magnesium Acetate Rash,Swelling High 12/22/2016 Medications * Be aware that medications may not be up to date on this document. Alwaysverify current medications with the patient. Multiple Vitamins-Mineral s (CENTRUM SILVER PO) Take 1 tablet by mouth once daily Active allopurinol (Zyloprim) 100 MG tablet Take 2 (two) tablets by mouth every 24 hours 01/14/2025 Active amLODIPine (Norvasc) 10 MG tablet Take 1 (one) tablet by mouth once daily 12/19/2024 Active atorvastatin (Lipitor) 80 MG tablet Take 1 (one) tablet by mouth once daily 01/14/2025 Active choline fenofibrate (Trilipix) 45 MG capsule Take 1 (one) capsule by mouth every 24 hours 01/14/2025 Active DULoxetine (Cymbalta) 60 MG capsule Take 1 (one) capsule by mouth at bedtime 01/14/2025 Active ezetimibe (Zetia) 10 MG tablet Take 1 (one) tablet by mouth every 24 hours 01/14/2025 Active gabapentin (Neurontin) 300 MG capsule Take 1 (one) capsule by mouth at bedtime 02/04/2025 Active levothyroxine (Synthroid) 125 MCG tablet Take 1 (one) tablet by mouth every 24 hours 01/14/2025 Active lisinopril (Prinivil; Zestril) 10 MG tablet Take 1 (one) tablet by mouth 2 times daily 01/14/2025 Active metoprolol tartrate IR (Lopressor) 50 MG tablet Take 1 (one) tablet by mouth 2 times daily 01/14/2025 Active nebivolol (Bystolic) 10 MG tablet Take 1 (one) tablet by mouth once daily Active NIFEdipine CR osmotic 24hr (Procardia-XL) 30 MG tablet Take 1 (one) tablet by mouth every 24 hours 01/14/2025 Active QUEtiapine (SEROquel) 25 MG tablet Take 1 (one) tablet by mouth 2 times daily as needed 12/18/2024 Active torsemide (Demadex) 10 MG tablet Take 1 (one) tablet by mouth once daily 01/14/2025 Active apixaban (Eliquis) 5 MG tablet Take 1 (one) tablet by mouth 2 times daily Active Active Problems Problem Noted Date Diagnosed Date TIA (transient ischemic attack) 08/22/2025 Encounters Date Type Department Care Team Description 08/22/2025 7:22 AM CDT - 08/23/2025 3:53 PM CDT Hospital Encounter [facility] 5N ACUTE [address] [place] [address] Napoleon Sepulveda MD Rodriguez, Wilson, MD Yogendran, Rajiv L, MD Neurology Discharge Disposition: Home or Self Care 08/22/2025 Travel from Last 3 Months Social History Tobacco Use Types Packs/Day Years Used Date Smoking Tobacco: Never Assessed Sex and Gender Information Value Date Recorded Sex Assigned at Not on file Legal 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 Gender Identity Not on file Sexual Orientation Not on file Last Filed Vital Signs Vital Sign Reading Time Taken Comments Blood Pressure 168/92 08/23/2025 11:47 AM CDT Pulse 98 08/23/2025 7:33 AM CDT Temperature 36.4 C (97.6 F) 08/23/2025 7:33 AM CDT Respiratory Rate 18 08/23/2025 7:33 AM CDT Oxygen Saturation 100% 08/23/2025 7:33 AM CDT Inhaled Oxygen Concentration - - Weight 77.2 kg (170 lb 3.1 oz) 08/22/2025 10:00 PM CDT Height 177.8 cm (5' 10) 08/22/2025 10:00 PM CDT Body Mass Index 24.42 08/22/2025 10:00 PM CDT Plan of Treatment Upcoming Encounters Date Type Department Care Team (Late st Contact Info) Description 09/25/2025 2:00 PM 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 Office Visit [facility] - Neurology [address] [place] [id number] Robert Quintero MD [address] [place] [address] Health Maintenance Due Date Last Done Comments COLOGUARD (AGES 45-75) - COL ON CA SCREENING 1955 COLON MONITORING 1955 COLONOSCOPY - COLON CA SCREENING 1955 CT COLONOGRAPHY - COLON CA SCREENING 1955 Colorectal Cancer Screening 1955 FIT - COLON CA SCREENING 1955 FLEX SIG - COLON CA SCREENING 1955 MEDICARE AWV 12 MONTHS 1955 HEPATITIS C SCREENING 05/05/1973 DTAP/TDAP/TD VACCINES (1 - Tdap) 1974 PNEUMOCOCCAL VACCINE 50+ (1 of 1 - PCV) 2005 ZOSTER VACCINE (1 of 2) 2005 Respiratory Syncytial Virus (RSV) Vaccine Pt: or over 60 yrs (1 - Risk 60-74 years 1-dose series) 2015 DEPRESSION SCREENING 11/21/2024 COVID-19 VACCINE (1 - 2023-2 5 season) 2025 INFLUENZA VACCINE (#1) 2025 HEPATITIS B VACCINE Aged Out No longe r eligible based on patient's age to complete this topic HIB VACCINE Aged Out No longer eligi ble based on patient's age to complete this topic HPV VACCINE Aged Out No longer eligi ble based on patient's age to complete this topic MENINGOCOCCAL (Group B) VACC INE SHARED DECISION-MAKING Aged Out No longer eligibl e based on patient's age to complete this topic MENINGOCOCCAL GROUPS A/C/Y/W VACCINE Aged Out No longer eligible b ased on patient's age to complete this topic Procedures Procedure Name Priority Date/Time Associated Diagnosis Comments CARDIAC EKG ORDER 08/23/2025 12: 16 PM CDT GLUCOSE - POINT OF CARE Routine 08/23/2025 11:45 AM CDT MRI BRAIN WO CONTRAST STAT 08/23/2025 10:14 AM CDT Weakness GLUCOSE - POINT OF CARE Routine 08/23/2025 7:33 AM CDT BASIC METABOLIC PANEL (CALCIUM TOTAL) Routine 08/23/2025 2:28 AM CDT CBC W/O DIFFERENTIAL Routine 08/23/2025 2:28 AM CDT TROPONIN-I HIGH SENSITIVE REFLEX 1HOUR Timed 08/22/2025 10:22 AM CDT ECHO COMPLETE W CONTRAST W BUBBLE STUDY Routine 08/22/2025 10:14 AM CDT Weakness LIPID PROFILE STAT 08/22/2025 8:41 AM CDT HEMOGLOBIN A1C SHARON 08/22/2025 8:41 AM CDT TROPONIN-I HIGH SENSITIVE BASELINE + 1HR STAT 08/22/2025 8:41 AM CDT PT EVAL AND TREAT Routine 08/22/2025 8:0 7 AM CDT OT EVAL AND TREAT Routine 08/22/2025 8:[address] ANGIO BRAIN NECK STROKE STAT 08/22/2025 8:02 AM CDT Weakness EKG 12-LEAD STAT 08/22/2025 7:52 AM CDT Weakness TROPONIN-I HIGH SENSITIVE STAT 08/22/2025 7:48 AM CDT PTT STAT 08/22/2025 7:48 AM CDT PT-INR STAT 08/22/2025 7:48 AM CDT COMPREHENSIVE METABOLIC PANEL STAT 08/22/2025 7:48 AM CDT CBC W AUTO DIFFERENTIAL STAT 08/22/2025 7:[address] BRAIN STROKE STAT 08/22/2025 7:33 AM CDT Weakness ISTAT CREATININE Routine 08/22/2025 7:30 AM CDT GLUCOSE - POINT OF CARE Routine 08/22/2025 7:29 AM CDT INR WHOLE BLOOD - POINT OF CARE (IP) STROKE Routine 08/22/2025 7:29 AM CDT from Last 3 Months Results * CARDIAC EKG ORDER (08/23/2025 12:16 PM CDT) Narrative 08/23/2025 12:16 PM CDT Ordered by an unspecified provider. us Scanned Document CARDIAC SERVICES ORDERABLES Fin al Result * (ABNORMAL) GLUCOSE - POINT OF CARE (08/23/2025 11:45 AM CDT) Only the most recent of3 resultswithin the time period is included. Glucose WB/POC 161(H) 70 - 99 mg/dL 08/23/2025 11:46 AM CDT [facility] Specimen Type Arterial/C apillary 08/23/2025 11:46 AM CDT [facility] Blood BLOOD SPECIMEN / Unknown 08/23/2025 11:45 AM CDT 08/23/2025 11:46 AM CDT us Robert Quintero MD LAB - POINT OF CARE ORDERABL ES Final Result [facility] [address] [place] [address], [facility] [phone] * MRI BRAIN WO CONTRAST (08/23/2025 10:14 AM CDT) Anatomical Region Laterality Modality Head Magnetic Resonan ce 08/23/2025 12:0 2 PM CDT Impressions 08/23/2025 8:06 PM CDT IMPRESSION: 1. Small focus of diffusion restriction with FLAIR hyperintensity in the left franco radiata, extending to the left basal ganglia (series 3 images 12-14) suggestive of acute/subacute infarction. > Dictated by Jono Medina MD, in the presence of Hilario Ojeda MD (compensation vice president). > Interpreting Provider: Jono Medina MD on 08/23/2025 8:06 PM Narrative 08/23/2025 8:06 PM CDT PROCEDURE: MRI BRAIN WO CONTRAST, DATE/TIME OF EXAM: 08/23/2025 10:15 AM, LOCATION [facility] INDICATION: R53.1: Weakness ADDITIONAL CLINICAL INFORMATION: Ordering Provider Reason For Exam: rule out acute ischemia or eivdence of structural cause for R facial palsy R arm weakness right leg weakness that has now resolved. Technologist Note: Additional: None. EXAMINATION: Magnetic resonance imaging (MRI) of the brain without contrast CONTRAST: None TECHNIQUE: MRI of the brain was performed without contrast according to standard protocol. COMPARISON: CT brain dated 09/09/2025 FINDINGS: No evidence of acute or chronic hemorrhage is identified. Small focus of diffusion restriction with FLAIR hyperintensity in the left franco radiata, extending to the left basal ganglia (series 3 images 12-14) suggestive of acute/subacute infarction. Otherwise no evidence of acute cerebral infarction is seen. There is mild cerebral volume loss with associated ex vacuo ventricular dilatation. No mass effect or midline shift is seen. Periventricular, subcortical, and pontine white matter FLAIR hyperintensities likely represent sequelae of chronic small vessel ischemic disease. The corpus callosum and sella appear normal. The posterior fossa, brainstem, and craniocervical junction appear normal. Other than bilateral cataract extractions, the visualized portions of the orbits, paranasal sinuses, and mastoids appear normal. Normal flow voids are demonstrated in the carotid arteries and basilar artery. The calvarium and visualized cervical spine appear normal. Procedure Note Jono Medina MD - 08/23/2025 PROCEDURE: MRI BRAIN WO CONTRAST, DATE/TIME OF EXAM: 08/23/2025 10:15AM, LOCATION [facility] INDICATION: R53.1: Weakness ADDITIONAL CLINICAL INFORMATION: Ordering Provider Reason For Exam: rule out acute ischemia or eivdenceof structural cause for R facial palsy R arm weakness right leg weaknessthat has now resolved. Technologist Note: Additional: None. EXAMINATION: Magnetic resonance imaging (MRI) of the brain withoutcontrast CONTRAST: None TECHNIQUE: MRI of the brain was performed without contrast according to standard protocol. COMPARISON: CT brain dated 09/09/2025 FINDINGS: No evidence of acute or chronic hemorrhage is identified. Small focus of diffusion restriction with FLAIR hyperintensity in the left coronaradiata, extending to the left basal ganglia (series 3 images 12-14) suggestiveof acute/subacute infarction. Otherwise no evidence of acute cerebral infarction is seen. There is mild cerebral volume loss with associatedex vacuo ventricular dilatation. No mass effect or midline shift is seen. Periventricular, subcortical, and pontine white matter FLAIR hyperintensities likely represent sequelae of chronic small vesselischemic disease. The corpus callosum and sella appear normal. The posteriorfossa, brainstem, and craniocervical junction appear normal. Other than bilateral cataract extractions, the visualized portions ofthe orbits, paranasal sinuses, and mastoids appear normal. Normal flow voids are demonstrated in the carotid arteries and basilar artery. Thecalvarium and visualized cervical spine appear normal. IMPRESSION: 1. Small focus of diffusion restriction with FLAIR hyperintensity in the left franco radiata, extending to the left basal ganglia (series 3images 12-14) suggestive of acute/subacute infarction. > Dictated by Jono Medina MD, in the presence of Hilario Ojeda MD (compensation vice president). > Interpreting Provider: Jono Medina MD on 08/23/2025 8:06 PM us Napoleon Sepulveda MD MR ORDERABLES Final Result * (ABNORMAL) CBC W/O DIFFERENTIAL (08/23/2025 2:28 AM CDT) WBC 5.2 4.0 - 10.7 x10E9/L 08/23/2025 3:18 AM [facility] RBC Count 3.88(L) 4.30 - 5.80 x10E12/L 08/23/2025 3:18 AM [facility] Hemoglobin 12.8(L) 13.3 - 17.5 g/dL 08/23/2025 3:18 AM [facility] Hematocrit 38.4(L) 38.7 - 51.1 % 08/23/2025 3:18 AM [facility] MCV 99.0(H) 80.0 - 98.0 fL 08/23/2025 3:18 AM [facility] MCH 33.0 26.7 - 33.6 pg 08/23/2025 3:18 AM [facility] MCHC 33.3 31.7 - 36.3 g/dL 08/23/2025 3:18 AM [facility] RDW-CV 13.5 11.3 - 14.8 % 08/23/2025 3:18 AM [facility] Platelet Count 150 150 - 420 x10E9/L 08/23/2025 3:18 AM [facility] MPV 9.9 7.8 - 11.4 fL 08/23/2025 3:18 AM [facility] Blood BLOOD SPECIMEN / Unknown Lab Venipuncture / Unknown 08/23/2025 2:28 AM CDT 08/23/2025 3:12 AM CDT us Napoleon Sepulveda MD LAB - HEMATOLOGY ORDERABLES Fi nal Result [facility] [address] [place] [address], [facility] [phone] * (ABNORMAL) BASIC METABOLIC PANEL (CALCIUM TOTAL) (08/23/2025 2:28 AM CDT) BUN 34(H) 7 - 26 mg/dL 08/23/2025 4:06 AM [facility] Creatinine 1.69(H) 0.71 - 1.16 mg/dL 08/23/2025 4:06 AM [facility] Sodium 138 136 - 145 mmol/L 08/23/2025 4:06 AM [facility] Potassium 4.1 3.5 - 4.5 mmol/L 08/23/2025 4:06 AM [facility] Chloride 110(H) 98 - 107 mmol/L 08/23/2025 4:06 AM [facility] CO2 21(L) 22 - 29 mmol/L 08/23/2025 4:06 AM [facility] Glucose 111(H) 70 - 99 mg/dL 08/23/2025 4:06 AM [facility] Calcium 8.7 8.4 - 10.2 mg/dL 08/23/2025 4:06 AM [facility] Anion Gap 7 6 - 16 08/23/2025 4:06 AM [facility] BUN/Creatinine Ratio 20 7 - 23 08/23/2025 4:06 AM [facility] Osmolality Calculated 294 275 - 295 mOsm/kg 08/23/2025 4:06 AM [facility] eGFR by CKD-EPI 43(L) >=90 mL/min/1.7 3 m2 08/23/2025 4:06 AM [facility] Comment:Estimated Glomerular Filtration Rate (eGFR) calculated using the CKD-EPI Creatinine Equation (2020), per the National Kidney Foundation and [place] [employer] recommendations. Blood BLOOD SPECIMEN / Unknown Lab Venipuncture / Unknown 08/23/2025 2:28 AM CDT 08/23/2025 3:12 AM T us Napoleon Sepulveda MD LAB - CHEMISTRY ORDERABLES Fin al Result [facility] [address] [place] [id number], [facility] [phone] * TROPONIN-I HIGH SENSITIVE REFLEX 1HOUR (08/22/2025 10:22 AM CDT) Troponin I High Sensitive 21 <=35 ng/L 08/22/2025 11:13 AM [facility] Delta Troponin I HS 08/22/2025 11:13 AM CDT [facility] Comment:Delta value intentio елена not calculated. Baseline to 1 hour specimen collection interval exceeded. Blood BLOOD SPECIMEN / Unknown Venipuncture / Unknown 08/22/2025 10:22 AM CDT 08/22/2025 10:29 AM CDT us Napoleon Sepulveda MD LAB - CHEMISTRY ORDERABLES Fin al Result [facility] [address] [place] [address], [facility] [phone] * ECHO COMPLETE W CONTRAST W BUBBLE STUDY (08/22/2025 10:14 AM CDT) AV area index 1.019 cm /m SSM CV FUJI PACS LA vol index 0.069 l/m SSM CV FUJI PACS Dimensionless Index 0.602 unitless SSM CV FUJI PACS Myocardial strain charge 2 unitless SSM CV FUJI PACS LVOT diam 2.055 cm SSM CV FUJ I PACS LVIDs 3.126 cm SSM CV FUJ I PACS LV ESV A4C 79.759 ml SSM CV FU JI PACS AV pk tay regurg 354.693 cm/s SSM CV FUJI PACS TR pk tay 324.93 cm/s SSM CV FUJ I PACS Ascending aorta 4.6 cm SSM CV FUJI PACS RA area 27.276 cm SSM CV FUJI PACS AR DECEL TIME 1.432 s SSM CV FUJI PACS AV pk grad 12.528 mmHg SSM CV FU JI PACS MV VTI 19.313 cm SSM CV FUJ I PACS LVOT pk tay 120.288 cm/s SSM CV F UJI PACS MV mn grad 1.489 mmHg SSM CV FU JI PACS LV A4C EF 39.658 % SSM CV FUJ I PACS LV ESV A2C 70.879 ml SSM CV FU JI PACS LA size 5.626 cm SSM CV FUJ I PACS LVOT pk grad 5.788 mmHg SSM CV FUJI PACS LVOT VTI 22.044 cm SSM CV FUJ I PACS LV A2C EF 34.844 % SSM CV FUJ I PACS RVIDd 3.299 cm SSM CV FUJ I PACS TAPSE 1.229 cm SSM CV FUJ I PACS LV EDV A2C 108.785 ml SSM CV FU JI PACS AV mn grad 6.799 mmHg SSM CV FU JI PACS AV area cont VTI 1.996 cm SSM CV FUJI PACS LVIDd 4.474 cm SSM CV FUJ I PACS LA vol BP 135.571 ml SSM CV FUJ I PACS AV area pk tay 2.254 cm SSM CV FUJI PACS RV-bear basal diam 3.052 cm SSM CV FUJI PACS IVSd 2D 1.473 cm SSM CV FUJ I PACS MV pk tay regurg 540.544 cm/s SSM CV FUJI PACS LV EDV A4C 132.178 ml SSM CV FU JI PACS LVPWd 1.377 cm SSM CV FUJ I PACS AV pk tay 176.972 cm/s SSM CV FUJ I PACS MR VTI 185.884 cm SSM CV FUJ I PACS LV biplane EF 37.235 % SSM CV FUJI PACS PV pk tay 61.88 cm/s SSM CV FUJ I PACS AV VTI 36.63 cm SSM CV FUJ I PACS MV E' lateral tay 7.599 cm/s SS M CV FUJI PACS Sinus of Valsalva 4.1 cm SS M CV FUJI PACS Anatomical Region Laterality Modality Ultrasound 08/22/2025 9:10 AM CDT Narrative 08/22/2025 1:34 PM CDT Summary * The left ventricle is normal in size, with moderately reduced systolic function and an estimated ejection fraction of 37 % by biplane method of disks. Left ventricular wall motion is globally hypokinetic. * The left ventricular mass is mildly increased with concentric hypertrophy. * The left ventricular diastolic function is consistent with grade I diastolic dysfunction and normal left atrial filling pressure. * Right ventricle is normal in size with mildly reduced systolic function. * The left atrium is severely dilated with a left atrial volume index of 69 ml/m2 by BP MOD. * There is moderate aortic valve regurgitation. * Agitated saline contrast study at rest and with Valsalva is negative for a shunt. * The pulmonary artery systolic pressure is moderately elevated, 50 mmHg. * The aortic root at the sinus of Valsalva is dilated measuring 4.1 cm with an index of 2.1 cm/m2. * The ascending aorta is dilated measuring 4.6 cm with an index of 2.3 cm/m2. Patient Info Name: Claudio Devries Age: 70 years : 1955 Gender: Male Ht: 70 in Wt: 170 lb BSA: 1.96 m2 HR: 96 bpm BP: 133 / 84 mmHg Heart Rhythm: Atrial Fibrillation Exam Date: 08/22/2025 9:10 AM Patient Status: OPO Study Site: [facility] Primary Location: [facility] Info Technical Quality: Technically Difficult Exam Type: ECHO COMPLETE W CONTRAST W BUBBLE STUDY Indications R53.1 - Weakness Procedure(s) * A complete 2D, color Doppler, spectral Doppler and M-Mode transthoracic echocardiogram was performed with an Ultrasound Enhancing Agent (UEA) and a Bubble Study. Contrast/Agitated Saline Contrast / Saline: Definity Amount: 0.50 ml Reaction to Contrast: no Contrast / Saline: Agitated Saline Amount: 2.00 ml Reaction to Contrast: no Reason for Technically Difficult Study: lung interference Staff Referring Physician: Napoleon Sepulveda Ordering Provider: Napoleon Sepulveda Attending Physician: Napoleon Sepulveda Tuna Purse Seiner: Nakita Schilling Left Ventricle The left ventricle is normal in size. Left ventricular systolic function is moderately reduced with an estimated ejection fraction of 37 % by biplane method of disks. The left ventricular mass is mildly increased with concentric hypertrophy. Left ventricular segmental wall motion is globally hypokinetic. The left ventricular diastolic function is consistent with grade I diastolic dysfunction and normal left atrial filling pressure. Right Ventricle The right ventricle is normal in size. Right ventricular systolic function is mildly reduced. Left Atrium The left atrium is severely dilated with a left atrial volume index of 69 ml/m2 by BP MOD. Right Atrium The right atrium is moderately dilated. Atrial Septum Intact interatrial septum visualized by 2D and color Doppler and agitated saline imaging. Agitated saline contrast study at rest and with Valsalva is negative for a shunt. Aortic Valve The aortic valve is trileaflet and moderately calcified. There is no aortic valve stenosis. There is moderate aortic valve regurgitation. Pulmonic Valve The pulmonic valve is not well visualized. There is no pulmonic valve stenosis. There is trace pulmonic regurgitation. Mitral Valve The mitral valve is grossly normal with mitral annular calcification. There is no mitral valve stenosis. There is mild mitral valve regurgitation. Tricuspid Valve The tricuspid valve is grossly normal. There is no tricuspid valve stenosis. There is mild to moderate tricuspid valve regurgitation. The pulmonary artery systolic pressure is moderately elevated, 50 mmHg. Inferior Vena Cava The inferior vena cava is not well visualized and therefore the right atrial pressure is assumed to be 8 mmHg. Pericardium/Pleural There is no pericardial effusion. Aorta The aortic root at the sinus of Valsalva is dilated measuring 4.1 cm with an index of 2.1 cm/m2. The ascending aorta is dilated measuring 4.6 cm with an index of 2.3 cm/m2. Measurements Left Ventricular Outflow Tract Name Value Normal LVOT 2D LVOT Diameter 2.1 cm LVOT Area 3.3 cm2 LVOT Doppler LVOT Peak Velocity 1.2 m/s LVOT Peak Gradient 6 mmHg LVOT Mean Velocity 76.46 cm/s LVOT Mean Gradient 3 mmHg LVOT VTI 22.0 cm LVOT VTI/AV VTI Ratio 0.6 LVOT Stroke Volume 73 ml LVOT Stroke Volume Index 37 ml/m2 35-58 LVOT CO 7.0 l/min LVOT CI 3.6 l/min/m2 Pulmonic Valve Name Value Normal PV Doppler PV Peak Velocity 0.6 m/s PV Peak Gradient 2 mmHg PV Accel Time 87.06 ms Mitral Valve Name Value Normal MV Doppler MV Peak Gradient 3 mmHg MV Mean Gradient 1 mmHg MV DI (VTI) 0.88 MV PHT 41 ms MV Area (PHT) 5.32 cm2 4.00-5.00 MV Area (Cont Eq VTI) 3.78 cm2 MV Regurgitation Doppler MR ERO (PISA) 0.11 cm2 MR Volume (PISA) 21 ml MV Diastolic Function MV E Peak Velocity 0.8 m/sec MV Annular TDI MV Septal e' Velocity 5 cm/s >=8 MV E/e' (Septal) 17 <=8 MV Lateral e' Velocity 8 cm/s >=10 MV E/e' (Lateral) 10 <=8 MV e' Average 6 cm/s MV E/e' (Average) 14 Tricuspid Valve Name Value Normal TV Regurgitation Doppler TR Peak Velocity 3.2 m/s TR Peak Gradient 42 mmHg Estimated PAP/RSVP RA Pressure 8 mmHg <=5 PA Systolic Pressure 50 mmHg <35 RV Systolic Pressure 50 mmHg <36 Aorta Name Value Normal Ascending Aorta Sinus of Valsalva Diameter 4.1 cm 2.8-4.0 Sinus of Valsalva Index 2.1 cm/m2 1.3-2.1 Asc Ao Diameter 4.6 cm 2.2-3.8 Asc Ao Diameter Index 2.3 cm/m2 1.1-1.9 Aortic Valve Name Value Normal AV Doppler AV Peak Velocity 1.77 m/s AV Peak Gradient 13 mmHg AV Mean Gradient 7 mmHg AV VTI 37 cm AV Area (Cont Eq VTI) 2.00 cm2 >=2.00 AV Area (Cont Eq Tay) 2.25 cm2 AV DI (VTI) 0.60 AV DI (Tay) 0.68 AV Regurgitation 2D LVOT Area 3.31 cm2 AV Regurgitation Doppler AR Decel Time 1,432 ms AR PHT 374 ms Ventricles Name Value Normal LV Dimensions 2D/MM IVS Diastolic Thickness (2D) 1.5 cm 0.6-1.0 LVID Diastole (2D) 4.5 cm 4.2-5.8 LVPW Diastolic Thickness (2D) 1.4 cm 0.6-1.0 IVS Systolic Thickness (2D) 1.7 cm LVID Systole (2D) 3.1 cm 2.5-4.0 LVPW Systolic Thickness (2D) 2.0 cm LV Mass (2D Cubed) 253 g 88-224 LV Mass Index (2D Cubed) 129 g/m2 49-115 Relative Wall Thickness (2D) 0.62 <=0.42 LV Fractional Shortening/Ejection Fraction 2D/MM LV Fractional Shortening (2D) 30 % 25-43 LV EF (2D Teicholz) 58 % 52-72 LV Diastolic Volume (4C MOD) 132 ml LV EF (4C MOD) 40 % LV Diastolic Volume (2C MOD) 109 ml LV EF (2C MOD) 35 % LV Diastolic Volume (BP MOD) 122 ml 62-150 LV Diastolic Volume Index (BP MOD) 62 ml/m2 34-74 LV Systolic Volume (BP MOD) 77 ml 21-61 LV Systolic Volume Index (BP MOD) 39 ml/m2 11-31 LV EF (BP MOD) 37 % 52-72 LV Diastolic Length (4C) 8.5 cm LV Systolic Length (4C) 7.6 cm LV Stroke Volume (4C MOD) 52 ml RV Dimensions 2D/MM RVID Diastole (2D) 3.3 cm 2.5-3.5 RVID Systole (2D) 2.6 cm RV Basal Diastolic Dimension 3.1 cm 2.5-4.1 RV Diastolic Length (4C) 6.7 cm 5.9-8.3 TAPSE 1.2 cm >=1.7 Atria Name Value Normal LA Dimensions LA Dimension (2D) 5.6 cm 3.0-4.1 LA Dimen Index (2D) 2.9 cm/m2 LA Volume (BP MOD) 136 ml LA Volume Index (BP MOD) 69 ml/m2 16-34 RA Dimensions RA Area (4C) 27 cm2 <=18 RA Area (4C) Index 14 cm2/m2 Report Signatures Finalized by Victoria Hagan on 08/22/2025 01:34 PM Procedure Note Victoria Hagan, DO - 08/22/2025 Summary * The left ventricle is normal in size, with moderately reducedsystolic function and an estimated ejection fraction of 37 % by biplane method of disks. Left ventricular wall motion is globally hypokinetic. * The left ventricular mass is mildly increased with concentrichypertrophy. * The left ventricular diastolic function is consistent with grade I diastolic dysfunction and normal left atrial filling pressure. * Right ventricle is normal in size with mildly reduced systolicfunction. * The left atrium is severely dilated with a left atrial volume index of69 ml/m2 by BP MOD. * There is moderate aortic valve regurgitation. * Agitated saline contrast study at rest and with Valsalva is negativefor a shunt. * The pulmonary artery systolic pressure is moderately elevated, 50mmHg. * The aortic root at the sinus of Valsalva is dilated measuring 4.1 cmwith an index of 2.1 cm/m2. * The ascending aorta is dilated measuring 4.6 cm with an index of 2.3 cm/m2. Patient Info Name: Claudio Devries Age: 70 years : 1955 Gender: Male Ht: 70 in Wt: 170 lb BSA: 1.96 m2 HR: 96 bpm BP: 133 / 84 mmHg Heart Rhythm: Atrial Fibrillation Exam Date: 08/22/2025 9:10 AM Patient Status: OPO Study Site: [facility] Primary Location: [facility] EStudy Info Technical Quality: Technically Difficult Exam Type: ECHO COMPLETE W CONTRAST W BUBBLE STUDY Indications R53.1 - Weakness Procedure(s) * A complete 2D, color Doppler, spectral Doppler and M-Modetransthoracic echocardiogram was performed with an Ultrasound Enhancing Agent (UEA) amarilys Bubble Study. Contrast/Agitated Saline Contrast / Saline: Definity Amount: 0.50 ml Reaction to Contrast: no Contrast / Saline: Agitated Saline Amount: 2.00 ml Reaction to Contrast: no Reason for Technically Difficult Study: lung interference Staff Referring Physician: Napoleon Sepulveda Ordering Provider: Napoleon Sepulveda Attending Physician: Naploeon Sepulveda Tuna Purse Seiner: Nakita Schilling Left Ventricle The left ventricle is normal in size. Left ventricular systolic functionis moderately reduced with an estimated ejection fraction of 37 % bybiplane method of disks. The left ventricular mass is mildly increased withconcentric hypertrophy. Left ventricular segmental wall motion is globallyhypokinetic. The left ventricular diastolic function is consistent with grade Idiastolic dysfunction and normal left atrial filling pressure. Right Ventricle The right ventricle is normal in size. Right ventricular systolicfunction is mildly reduced. Left Atrium The left atrium is severely dilated with a left atrial volume index of69 ml/m2 by BP MOD. Right Atrium The right atrium is moderately dilated. Atrial Septum Intact interatrial septum visualized by 2D and color Doppler andagitated saline imaging. Agitated saline contrast study at rest and with Valsalvais negative for a shunt. Aortic Valve The aortic valve is trileaflet and moderately calcified. There is noaortic valve stenosis. There is moderate aortic valve regurgitation. Pulmonic Valve The pulmonic valve is not well visualized. There is no pulmonic valve stenosis. There is trace pulmonic regurgitation. Mitral Valve The mitral valve is grossly normal with mitral annular calcification.There is no mitral valve stenosis. There is mild mitral valve regurgitation. Tricuspid Valve The tricuspid valve is grossly normal. There is no tricuspid valvestenosis. There is mild to moderate tricuspid valve regurgitation. The pulmonaryartery systolic pressure is moderately elevated, 50 mmHg. Inferior Vena Cava The inferior vena cava is not well visualized and therefore the rightatrial pressure is assumed to be 8 mmHg. Pericardium/Pleural There is no pericardial effusion. Aorta The aortic root at the sinus of Valsalva is dilated measuring 4.1 cmwith an index of 2.1 cm/m2. The ascending aorta is dilated measuring 4.6 cm withan index of 2.3 cm/m2. Measurements Left Ventricular Outflow Tract Name Value Normal LVOT 2D LVOT Diameter 2.1 cm LVOT Area 3.3 cm2 LVOT Doppler LVOT Peak Velocity 1.2 m/s LVOT Peak Gradient 6 mmHg LVOT Mean Velocity 76.46 cm/s LVOT Mean Gradient 3 mmHg LVOT VTI 22.0 cm LVOT VTI/AV VTI Ratio 0.6 LVOT Stroke Volume 73 ml LVOT Stroke Volume Index 37 ml/m2 35-58 LVOT CO 7.0 l/min LVOT CI 3.6 l/min/m2 Pulmonic Valve Name Value Normal PV Doppler PV Peak Velocity 0.6 m/s PV Peak Gradient 2 mmHg PV Accel Time 87.06 ms Mitral Valve Name Value Normal MV Doppler MV Peak Gradient 3 mmHg MV Mean Gradient 1 mmHg MV DI (VTI) 0.88 MV PHT 41 ms MV Area (PHT) 5.32 cm2 4.00-5.00 MV Area (Cont Eq VTI) 3.78 cm2 MV Regurgitation Doppler MR ERO (PISA) 0.11 cm2 MR Volume (PISA) 21 ml MV Diastolic Function MV E Peak Velocity 0.8 m/sec MV Annular TDI MV Septal e' Velocity 5 cm/s >=8 MV E/e' (Septal) 17 <=8 MV Lateral e' Velocity 8 cm/s >=10 MV E/e' (Lateral) 10 <=8 MV e' Average 6 cm/s MV E/e' (Average) 14 Tricuspid Valve Name Value Normal TV Regurgitation Doppler TR Peak Velocity 3.2 m/s TR Peak Gradient 42 mmHg Estimated PAP/RSVP RA Pressure 8 mmHg <=5 PA Systolic Pressure 50 mmHg <35 RV Systolic Pressure 50 mmHg <36 Aorta Name Value Normal Ascending Aorta Sinus of Valsalva Diameter 4.1 cm 2.8-4.0 Sinus of Valsalva Index 2.1 cm/m2 1.3-2.1 Asc Ao Diameter 4.6 cm 2.2-3.8 Asc Ao Diameter Index 2.3 cm/m2 1.1-1.9 Aortic Valve Name Value Normal AV Doppler AV Peak Velocity 1.77 m/s AV Peak Gradient 13 mmHg AV Mean Gradient 7 mmHg AV VTI 37 cm AV Area (Cont Eq VTI) 2.00 cm2 >=2.00 AV Area (Cont Eq Tay) 2.25 cm2 AV DI (VTI) 0.60 AV DI (Tay) 0.68 AV Regurgitation 2D LVOT Area 3.31 cm2 AV Regurgitation Doppler AR Decel Time 1,432 ms AR PHT 374 ms Ventricles Name Value Normal LV Dimensions 2D/MM IVS Diastolic Thickness (2D) 1.5 cm 0.6-1.0 LVID Diastole (2D) 4.5 cm 4.2-5.8 LVPW Diastolic Thickness (2D) 1.4 cm 0.6-1.0 IVS Systolic Thickness (2D) 1.7 cm LVID Systole (2D) 3.1 cm 2.5-4.0 LVPW Systolic Thickness (2D) 2.0 cm LV Mass (2D Cubed) 253 g 88-224 LV Mass Index (2D Cubed) 129 g/m2 49-115 Relative Wall Thickness (2D) 0.62 <=0.42 LV Fractional Shortening/Ejection Fraction 2D/MM LV Fractional Shortening (2D) 30 % 25-43 LV EF (2D Teicholz) 58 % 52-72 LV Diastolic Volume (4C MOD) 132 ml LV EF (4C MOD) 40 % LV Diastolic Volume (2C MOD) 109 ml LV EF (2C MOD) 35 % LV Diastolic Volume (BP MOD) 122 ml 62-150 LV Diastolic Volume Index (BP MOD) 62 ml/m2 34-74 LV Systolic Volume (BP MOD) 77 ml 21-61 LV Systolic Volume Index (BP MOD) 39 ml/m2 11-31 LV EF (BP MOD) 37 % 52-72 LV Diastolic Length (4C) 8.5 cm LV Systolic Length (4C) 7.6 cm LV Stroke Volume (4C MOD) 52 ml RV Dimensions 2D/MM RVID Diastole (2D) 3.3 cm 2.5-3.5 RVID Systole (2D) 2.6 cm RV Basal Diastolic Dimension 3.1 cm 2.5-4.1 RV Diastolic Length (4C) 6.7 cm 5.9-8.3 TAPSE 1.2 cm >=1.7 Atria Name Value Normal LA Dimensions LA Dimension (2D) 5.6 cm 3.0-4.1 LA Dimen Index (2D) 2.9 cm/m2 LA Volume (BP MOD) 136 ml LA Volume Index (BP MOD) 69 ml/m2 16-34 RA Dimensions RA Area (4C) 27 cm2 <=18 RA Area (4C) Index 14 cm2/m2 Report Signatures Finalized by Victoria Hagan on 08/22/2025 01:34 PM us Napoleon Sepulveda MD ECHO CUPID Final Result * TROPONIN-I HIGH SENSITIVE BASELINE + 1HR (08/22/2025 8:41 AM CDT) Troponin I High Sensitive 21 <=35 ng/L 08/22/2025 9:32 AM CDT [facility] Blood BLOOD SPECIMEN / Unknown Venipuncture / Unknown 08/22/2025 8:41 AM CDT 08/22/2025 8:59 AM CDT Napoleon Sepulveda MD LAB - CHEMISTRY ORDERABLES Fin al Result Performing Organization Address [facility] Co de Phone Number [address] [address], [facility] [phone] * (ABNORMAL) HEMOGLOBIN A1C (08/22/2025 8:41 AM CDT) Hemoglobin A1c 6.0(H) <=5.6 % 08/22/2025 9:48 AM CDT [facility] Estimated Average Glucose 126 mg/dL 08/22/2025 9:48 AM CDT [facility] Comment: HbA1c Interpretation: Normal : < 5.7% Pre-diabetes: 5.7-6.4% Diabetes: Equal to or greater than 6.5% Test results diagnostic of diabetes should be repeated for confirmation. Treatment target values recommended by ADA and other clinical organizations should be used to evaluate metabolic control in patients. Reference: [place] [employer], Standards of Care in Diabetes -2020 In patients 70 years and older consider HbA1c target range of 7.0-7.5% (Reference: Issa Christian et al. JAMDA. 2012) The Sebia assay for the measurement of HbA1c is a National Glycohemoglobin Standardization Program (NGSP) certified method. Blood BLOOD SPECIMEN / Unknown Venipuncture / Unknown 08/22/2025 8:41 AM CDT 08/22/2025 8:59 AM CDT us Napoleon Sepulveda MD LAB - CHEMISTRY ORDERABLES Fin al Result Performing Organization Address City/[facility]/ZIP Co de Phone Number [address] [address], [place] [phone] * (ABNORMAL) LIPID PROFILE (08/22/2025 8:41 AM CDT) Cholesterol Total 136 <200 mg/dL 08/22/2025 9:28 AM T [facility] HDL 36(L) >40 mg/dL 08/22/2025 9:28 AM [facility] Comment: ATP III Classification of HDL Cholesterol: <40 mg/dL: Considered a major risk factor. >60 mg/dL: Considered a negative risk factor. LDL Calculated 80 <100 mg/dL 08/22/2025 9:28 AM [facility] Comment: ATP III Classification of LDL Cholesterol: <100 mg/dL: Optimal 100 - 129 mg/dL: Near Optimal/Above Optimal 130 - 159 mg/dL: Borderline High 160 - 189 mg/dL: High >190 mg/dL: Very High LDL is calculated using the Friedewald equation. Triglycerides 99 <150 mg/dL 08/22/2025 9:28 AM [facility] Comment: ATP III Classification of Triglycerides: <150 mg/dL: Normal 150 - 199 mg/dL: Borderline High 200 - 400 mg/dL: High >500 mg/dL: Very High Blood BLOOD SPECIMEN / Unknown Venipuncture / Unknown 08/22/2025 8:41 AM CDT 08/22/2025 8:59 AM CDT us Napoleon Sepulveda MD LAB - CHEMISTRY ORDERABLES Fin al Result Performing Organization Address [facility]/State/[facility] de Phone Number [address] [address], [facility] [phone] * CT ANGIO BRAIN NECK STROKE (08/22/2025 8:02 AM CDT) Anatomical Region Laterality Modality Head Computed Tomogra phy 08/22/2025 8:34 AM CDT Impressions 08/22/2025 10:54 AM CDT IMPRESSION: 1. No acute intracranial hemorrhage, territorial infarct or herniation. 2. No large arterial occlusions or significant stenoses identified in the head or neck. 3. 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 4. Main pulmonary artery is enlarged measuring 3.4 cm. Viz.AI was used for large vessel occlusion detection. The report is dictated by Mary Almeida Dr, MD (compensation vice president) Case discussed with senior resident, Hilario Ojeda MD Results of this exam were communicated with closed loop confirmation to MD Maryellen on 08/22/2025 07:33 AM. > Dictated by Mechatronics Engineer I, Jono Medina MD have personally reviewed and interpreted this examination/study. > Interpreting Provider: Jono Medina MD on 08/22/2025 10:54 AM Narrative 08/22/2025 10:54 AM CDT PROCEDURE: CT ANGIO BRAIN NECK STROKE, DATE/TIME OF EXAM: 08/22/2025 8:03 AM, LOCATION [facility] INDICATION: R53.1: Weakness ADDITIONAL CLINICAL INFORMATION: Ordering Provider Reason For Exam: Right facial palsy, right arm weakness Technologist Note: Additional: None. EXAMINATION: 1. Computed tomographic (CT) angiography of the head without and with contrast 2. CT angiography of the neck with contrast CONTRAST: IOPAMIDOL 76 % IV SOLN:100 mL TECHNIQUE: CT of the head was performed without contrast according to standard protocol. Then CT angiography of the head and neck was obtained after the uneventful administration of 100 mL Isovue-370 intravenous contrast. Three dimensional postprocessing was performed by the technologist and sent to the workstation for review. Stenosis measurements are based on NASCET criteria. CT dose reduction technique was used, including Automated Exposure Control. COMPARISON: None FINDINGS: Of note, examination is limited by streak artifacts from dental implants. Non-angiographic findings: No acute intra- or extra-axial fluid collections are identified. There is mild cerebral volume loss with associated ex vacuo ventricular dilatation. The basilar cisterns are patent. No mass effect or midline shift is seen. Hypoattenuation of the periventricular white matter, suggestive of chronic small vessel disease. The solomon-white matter differentiation is normal. There is vascular calcification of the carotid siphons.There is mild paranasal disease. The visualized portions of the orbits and mastoids appear normal. No acute fracture is identified. No soft tissue abnormalities are identified in the neck. Atelectatic changes in in the right lung. Degenerative changes noted in the spine. No acute fractures identified. Angiographic findings: The ascending aorta is aneurysmal measuring 4.5 cm. The main pulmonary artery is enlarged measuring 3.4 cm. There is atherosclerotic disease of the aortic arch. The configuration of the brachiocephalic vessels is typical. The innominate artery and both subclavian arteries appear normal. There is atherosclerotic disease of the right carotid bifurcation and origin of the right internal carotid artery with less than 50 percent focal stenosis by NASCET criteria. The right common and internal carotid arteries otherwise appear normal. There is atherosclerotic disease of the left carotid bifurcation and origin of the left internal carotid artery with less than 50 percent focal stenosis by NASCET criteria. The left common and internal carotid arteries otherwise appear normal. The cervical vertebral arteries appear normal. The distal internal carotid arteries appear normal. The anterior and middle cerebral arteries appear normal. The distal vertebral arteries appear normal. The basilar artery and posterior cerebral arteries appear normal. No aneurysms, vascular occlusions, or intracranial stenoses are identified. Procedure Note Jono Medina MD - 08/22/2025 PROCEDURE: CT ANGIO BRAIN NECK STROKE, DATE/TIME OF EXAM: :03 AM, LOCATION [facility] INDICATION: R53.1: Weakness ADDITIONAL CLINICAL INFORMATION: Ordering Provider Reason For Exam: Right facial palsy, right armweakness Technologist Note: Additional: None. EXAMINATION: 1. Computed tomographic (CT) angiography of the head without and with contrast 2. CT angiography of the neck with contrast CONTRAST: IOPAMIDOL 76 % IV SOLN:100 mL TECHNIQUE: CT of the head was performed without contrast according to standard protocol. Then CT angiography of the head and neck was obtained after the uneventful administration of 100 mL Isovue-370 intravenous contrast. Three dimensional postprocessing was performed by the technologist and sent to the workstation for review. Stenosismeasurements are based on NASCET criteria. CT dose reduction technique was used, including Automated Exposure Control. COMPARISON: None FINDINGS: Of note, examination is limited by streak artifacts from dentalimplants. Non-angiographic findings: No acute intra- or extra-axial fluid collections are identified. Thereis mild cerebral volume loss with associated ex vacuo ventriculardilatation. The basilar cisterns are patent. No mass effect or midline shift isseen. Hypoattenuation of the periventricular white matter, suggestive ofchronic small vessel disease. The solomon-white matter differentiation is normal. There is vascular calcification of the carotid siphons.There is mild paranasal disease. The visualized portions of the orbits and mastoids appear normal. No acute fracture is identified. No soft tissue abnormalities are identified in the neck. Atelectatic changes in in the right lung. Degenerative changes noted inthe spine. No acute fractures identified. Angiographic findings: The ascending aorta is aneurysmal measuring 4.5 cm. The main pulmonary artery is enlarged measuring 3.4 cm. There is atherosclerotic disease of the aortic arch. The configuration of the brachiocephalic vessels is typical. The innominate artery and both subclavian arteries appearnormal. There is atherosclerotic disease of the right carotid bifurcation and origin of the right internal carotid artery with less than 50 percentfocal stenosis by NASCET criteria. The right common and internal carotidarteries otherwise appear normal. There is atherosclerotic disease of the left carotid bifurcation and origin of the left internal carotid artery with less than 50 percent focal stenosis by NASCET criteria. The left commonand internal carotid arteries otherwise appear normal. The cervicalvertebral arteries appear normal. The distal internal carotid arteries appear normal. The anterior andmiddle cerebral arteries appear normal. The distal vertebral arteries appear normal. The basilar artery and posterior cerebral arteries appearnormal. No aneurysms, vascular occlusions, or intracranial stenoses areidentified. IMPRESSION: 1. No acute intracranial hemorrhage, territorial infarct or herniation. 2. No large arterial occlusions or significant stenoses identified inthe head or neck. 3. 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 4. Main pulmonary artery is enlarged measuring 3.4 cm. Viz.AI was used for large vessel occlusion detection. The report is dictated by Mary Almeida Dr, MD (compensation vice president) Case discussed with senior resident, Hilario Ojeda MD Results of this exam were communicated with closed loop confirmation to MD Maryellen on 08/22/2025 07:33 AM. > Dictated by Mechatronics Engineer I, Jono Medina MD have personally reviewed and interpreted this examination/study. > Interpreting Provider: Jono Medina MD on 08/22/2025 10:54 AM Mateo Barreto MD CT ORDERABLES Final Result * EKG 12-LEAD (08/22/2025 7:52 AM CDT) Pathologist [facility] Ventricular Rate 96 BPM [facility] QRS Duration ms 96 ms [facility] Q-T Interval ms 360 ms [facility] QTC Calculation (Bezet) 454 ms [facility] Calculated R [place] -48 degrees [facility] Calculated T [place] 32 degrees [facility] Interpretation EKG ATRIAL FIBRILLATION LEFT ANTERIOR FASCICULAR BLOCK SEPTAL INFARCT , AGE UNDETERMINED INFERIOR INFARCT , AGE UNDETERMINED ABNORMAL ECG NO PREVIOUS ECGS AVAILABLE Confirmed by JOSÉ MIGUEL RASHID MD ([id number]) on 08/25/2025 11:37:16 PM [facility] 08/22/2025 7:52 AM CDT 08/25/2025 11:37 PM CDT Mateo Barreto MD ECG ORDERABLES Edited Resul t - Final [facility] * TROPONIN-I HIGH SENSITIVE (08/22/2025 7:48 AM CDT) [facility] Troponin I High Sensitive 21 <=35 ng/L 08/22/2025 8:29 AM CDT [facility] Blood BLOOD SPECIMEN / Unknown Venipuncture / Unknown 08/22/2025 7:48 AM CDT 08/22/2025 7:53 AM CDT Mateo Barreto MD LAB - CHEMISTRY ORDERABLES F inal Result [facility] [address] [place] [phone], [facility] [phone] * PTT (08/22/2025 7:48 AM CDT) [facility] APTT 25.2 23.0 - 38.4 Seconds 08/22/2025 8:18 AM CDT [facility] Comment:Suggested therapeuti c range for full dose I.V. unfractionated heparin therapy for venous thromboembolism is 71 to 109 seconds. Blood BLOOD SPECIMEN / Unknown Venipuncture / Unknown 08/22/2025 7:48 AM CDT 08/22/2025 7:52 AM CDT Mateo Barreto MD LAB - COAGULATION ORDERABLES Final Result Performing Organization Address [facility] Co de Phone Number [address] [address], [facility] [phone] * PT-INR (08/22/2025 7:48 AM CDT) Pathologist [facility] PT 14.3 12.1 - 14.8 Seconds 08/22/2025 8:18 AM [facility] INR 1.1 See Comment 08/22/2025 8:18 AM [facility] Comment:The suggested therap eutic range for standard coumadin (warfarin) therapy is an INR of 2.0-3.0. For high-risk patients (Mechanical Mitral Valve Prosthesis, etc.), the suggested prophylactic therapeutic range is an INR of 2.5-3.5. Blood BLOOD SPECIMEN / Unknown Venipuncture / Unknown 08/22/2025 7:48 AM CDT 08/22/2025 7:52 AM CDT Mateo Barreto MD LAB - COAGULATION ORDERABLES Final Result Performing Organization Address [facility] Co de Phone Number [address] [address], [facility] [phone] * (ABNORMAL) CBC W AUTO DIFFERENTIAL (08/22/2025 7:48 AM CDT) WBC 6.1 4.0 - 10.7 x10E9/L 08/22/2025 8:01 AM [facility] RBC Count 4.15(L) 4.30 - 5.80 x10E12/L 08/22/2025 8:01 AM [facility] Hemoglobin 13.7 13.3 - 17.5 g/dL 08/22/2025 8:01 AM [facility] Hematocrit 40.4 38.7 - 51.1 % 08/22/2025 8:01 AM [facility] MCV 97.3 80.0 - 98.0 fL 08/22/2025 8:01 AM [facility] MCH 33.0 26.7 - 33.6 pg 08/22/2025 8:01 AM [facility] MCHC 33.9 31.7 - 36.3 g/dL 08/22/2025 8:01 AM [facility] RDW-CV 13.6 11.3 - 14.8 % 08/22/2025 8:01 AM [facility] Platelet Count 182 150 - 420 x10E9/L 08/22/2025 8:01 AM [facility] MPV 9.9 7.8 - 11.4 fL 08/22/2025 8:01 AM [facility] Neutrophil % 68.3 41.0 - 74.0 % 08/22/2025 8:01 AM [facility] Lymphocyte % 18.2 17.0 - 47.0 % 08/22/2025 8:01 AM [facility] Monocyte % 8.5 3.0 - 11.0 % 08/22/2025 8:01 AM [facility] Eosinophil % 4.4 0.0 - 7.0 % 08/22/2025 8:01 AM [facility] Basophil % 0.3 0.0 - 1.6 % 08/22/2025 8:01 AM [facility] Immature Granulocytes % 0.3 0.0 - 1.0 % 08/22/2025 8:01 AM [facility] Neutrophil Absolute 4.17 1.60 - 7.50 x10E9/L 08/22/2025 8:01 AM [facility] Lymphocyte Absolute 1.11 1.00 - 4.40 x10E9/L 08/22/2025 8:01 AM [facility] Monocyte Absolute 0.52 0.15 - 1.00 x10E9/L 08/22/2025 8:01 AM [facility] Eosinophil Absolute 0.27 0.00 - 0.60 x10E9/L 08/22/2025 8:01 AM [facility] Basophil Absolute 0.02 0.00 - 0.13 x10E9/L 08/22/2025 8:01 AM [facility] Blood BLOOD SPECIMEN / Unknown Venipuncture / Unknown 08/22/2025 7:48 AM CDT 08/22/2025 7:53 AM CDT Mateo Barreto MD LAB - HEMATOLOGY ORDERABLES Final Result [facility] [address] [place] [phone], [facility] [phone] * (ABNORMAL) COMPREHENSIVE METABOLIC PANEL (08/22/2025 7:48 AM CDT) BUN 42(H) 7 - 26 mg/dL 08/22/2025 8:25 AM [facility] Creatinine 1.81(H) 0.71 - 1.16 mg/dL 08/22/2025 8:25 AM [facility] Sodium 141 136 - 145 mmol/L 08/22/2025 8:25 AM [facility] Potassium 4.7(H) 3.5 - 4.5 mmol/L 08/22/2025 8:25 AM [facility] Chloride 109(H) 98 - 107 mmol/L 08/22/2025 8:25 AM [facility] CO2 24 22 - 29 mmol/L 08/22/2025 8:25 AM [facility] Glucose 137(H) 70 - 99 mg/dL 08/22/2025 8:25 AM [facility] Calcium 9.4 8.4 - 10.2 mg/dL 08/22/2025 8:25 AM [facility] Protein Total 6.8 6.0 - 8.3 g/dL 08/22/2025 8:25 AM [facility] Albumin 3.4 3.4 - 5.0 g/dL 08/22/2025 8:25 AM [facility] Bilirubin Total 0.4 0.2 - 1.2 mg/dL 08/22/2025 8:25 AM [facility] Alkaline Phosphatase 117 40 - 150 U/L 08/22/2025 8:25 AM [facility] ALT 14 5 - 55 U/L 08/22/2025 8:25 AM CDT [facility] AST 22 5 - 34 U/L 08/22/2025 8:25 AM [facility] Anion Gap 8 6 - 16 08/22/2025 8:25 AM [facility] BUN/Creatinine Ratio 23 7 - 23 08/22/2025 8:25 AM T [facility] Osmolality Calculated 305(H) 275 - 295 mOsm/kg 08/22/2025 8:25 AM [facility] Albumin/Globulin Ratio 1.0(L) 1.1 - 2.3 08/22/2025 8:25 AM [facility] eGFR by CKD-EPI 40(L) >=90 mL/min/1.7 3 m2 08/22/2025 8:25 AM [facility] Comment:Estimated Glomerular Filtration Rate (eGFR) calculated using the CKD-EPI Creatinine Equation (2020), per the National Kidney Foundation and [place] [employer]ph[employer] recommendations. Blood BLOOD SPECIMEN / Unknown Venipuncture / Unknown 08/22/2025 7:48 AM CDT 08/22/2025 7:53 AM CDT us Mateo Barreto MD LAB - CHEMISTRY ORDERABLES F inal Result [facility] [address] [place] [address], [facility] [phone] * CT BRAIN - Stroke (08/22/2025 7:33 AM CDT) Anatomical Region Laterality Modality Head Computed Tomogra phy 08/22/2025 10:3 0 AM CDT Impressions 08/22/2025 10:52 AM CDT IMPRESSION: 1. No acute intracranial hemorrhage, territorial infarct or herniation. 2. No large arterial occlusions or significant stenoses identified in the head or neck. 3. 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 4. Main pulmonary artery is enlarged measuring 3.4 cm. Viz.AI was used for large vessel occlusion detection. The report is dictated by Mary Almeida Dr, MD (compensation vice president) Case discussed with senior resident, Hilario Ojeda MD Results of this exam were communicated with closed loop confirmation to MD Maryellen on 08/22/2025 07:33 AM. > Interpreting Provider: Jono Medina MD on 08/22/2025 10:52 AM Narrative 08/22/2025 10:52 AM CDT PROCEDURE: CT ANGIO BRAIN NECK STROKE, DATE/TIME OF EXAM: 08/22/2025 8:03 AM, LOCATION [facility] INDICATION: R53.1: Weakness ADDITIONAL CLINICAL INFORMATION: Ordering Provider Reason For Exam: Right facial palsy, right arm weakness Technologist Note: Additional: None. EXAMINATION: 1. Computed tomographic (CT) angiography of the head without and with contrast 2. CT angiography of the neck with contrast CONTRAST: IOPAMIDOL 76 % IV SOLN:100 mL TECHNIQUE: CT of the head was performed without contrast according to standard protocol. Then CT angiography of the head and neck was obtained after the uneventful administration of 100 mL Isovue-370 intravenous contrast. Three dimensional postprocessing was performed by the technologist and sent to the workstation for review. Stenosis measurements are based on NASCET criteria. CT dose reduction technique was used, including Automated Exposure Control. COMPARISON: None FINDINGS: Of note, examination is limited by streak artifacts from dental implants. Non-angiographic findings: No acute intra- or extra-axial fluid collections are identified. There is mild cerebral volume loss with associated ex vacuo ventricular dilatation. The basilar cisterns are patent. No mass effect or midline shift is seen. Hypoattenuation of the periventricular white matter, suggestive of chronic small vessel disease. The solomon-white matter differentiation is normal. There is vascular calcification of the carotid siphons.There is mild paranasal disease. The visualized portions of the orbits and mastoids appear normal. No acute fracture is identified. No soft tissue abnormalities are identified in the neck. Atelectatic changes in in the right lung. Degenerative changes noted in the spine. No acute fractures identified. Angiographic findings: The ascending aorta is aneurysmal measuring 4.5 cm. The main pulmonary artery is enlarged measuring 3.4 cm. There is atherosclerotic disease of the aortic arch. The configuration of the brachiocephalic vessels is typical. The innominate artery and both subclavian arteries appear normal. There is atherosclerotic disease of the right carotid bifurcation and origin of the right internal carotid artery with less than 50 percent focal stenosis by NASCET criteria. The right common and internal carotid arteries otherwise appear normal. There is atherosclerotic disease of the left carotid bifurcation and origin of the left internal carotid artery with less than 50 percent focal stenosis by NASCET criteria. The left common and internal carotid arteries otherwise appear normal. The cervical vertebral arteries appear normal. The distal internal carotid arteries appear normal. The anterior and middle cerebral arteries appear normal. The distal vertebral arteries appear normal. The basilar artery and posterior cerebral arteries appear normal. No aneurysms, vascular occlusions, or intracranial stenoses are identified. Procedure Note Jono Medina MD - 08/22/2025 PROCEDURE: CT ANGIO BRAIN NECK STROKE, DATE/TIME OF EXAM: :03 AM, LOCATION [facility] INDICATION: R53.1: Weakness ADDITIONAL CLINICAL INFORMATION: Ordering Provider Reason For Exam: Right facial palsy, right armweakness Technologist Note: Additional: None. EXAMINATION: 1. Computed tomographic (CT) angiography of the head without and with contrast 2. CT angiography of the neck with contrast CONTRAST: IOPAMIDOL 76 % IV SOLN:100 mL TECHNIQUE: CT of the head was performed without contrast according to standard protocol. Then CT angiography of the head and neck was obtained after the uneventful administration of 100 mL Isovue-370 intravenous contrast. Three dimensional postprocessing was performed by the technologist and sent to the workstation for review. Stenosismeasurements are based on NASCET criteria. CT dose reduction technique was used, including Automated Exposure Control. COMPARISON: None FINDINGS: Of note, examination is limited by streak artifacts from dentalimplants. Non-angiographic findings: No acute intra- or extra-axial fluid collections are identified. Thereis mild cerebral volume loss with associated ex vacuo ventriculardilatation. The basilar cisterns are patent. No mass effect or midline shift isseen. Hypoattenuation of the periventricular white matter, suggestive ofchronic small vessel disease. The solomon-white matter differentiation is normal. There is vascular calcification of the carotid siphons.There is mild paranasal disease. The visualized portions of the orbits and mastoids appear normal. No acute fracture is identified. No soft tissue abnormalities are identified in the neck. Atelectatic changes in in the right lung. Degenerative changes noted inthe spine. No acute fractures identified. Angiographic findings: The ascending aorta is aneurysmal measuring 4.5 cm. The main pulmonary artery is enlarged measuring 3.4 cm. There is atherosclerotic disease of the aortic arch. The configuration of the brachiocephalic vessels is typical. The innominate artery and both subclavian arteries appearnormal. There is atherosclerotic disease of the right carotid bifurcation and origin of the right internal carotid artery with less than 50 percentfocal stenosis by NASCET criteria. The right common and internal carotidarteries otherwise appear normal. There is atherosclerotic disease of the left carotid bifurcation and origin of the left internal carotid artery with less than 50 percent focal stenosis by NASCET criteria. The left commonand internal carotid arteries otherwise appear normal. The cervicalvertebral arteries appear normal. The distal internal carotid arteries appear normal. The anterior andmiddle cerebral arteries appear normal. The distal vertebral arteries appear normal. The basilar artery and posterior cerebral arteries appearnormal. No aneurysms, vascular occlusions, or intracranial stenoses areidentified. IMPRESSION: 1. No acute intracranial hemorrhage, territorial infarct or herniation. 2. No large arterial occlusions or significant stenoses identified inthe head or neck. 3. 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 4. Main pulmonary artery is enlarged measuring 3.4 cm. Viz.AI was used for large vessel occlusion detection. The report is dictated by Mary Almeida Dr, MD (compensation vice president) Case discussed with senior resident, Hilario Ojeda MD Results of this exam were communicated with closed loop confirmation to MD Maryellen on 08/22/2025 07:33 AM. > Interpreting Provider: Jono Medina MD on 08/22/2025 10:52 AM Mateo Barreto MD CT ORDERABLES Final Result * (ABNORMAL) ISTAT CREATININE (08/22/2025 7:30 AM CDT) Creatinine POCT 1.80(H) 0.60 - 1.30 mg/dL 08/22/2025 7:37 AM CDT [facility] eGFR by CKD-EPI 40(L) >90 mL/min/1.7 3 m2 08/22/2025 7:37 AM CDT [facility] Blood BLOOD SPECIMEN / Unknown 08/22/2025 7:30 AM CDT 08/22/2025 7:37 AM CDT us Napoleon Sepulveda MD LAB - POINT OF CARE ORDERABLES Final Result [address] [address] [id number] [place] [address], [place] [phone] * INR WHOLE BLOOD - POINT OF CARE (IP) STROKE (08/22/2025 7:29 AM CDT) INR 1.1 0.9 - 1.2 08/22/2025 7:38 AM CDT [facility] Device [id number] 08/22/2025 7:38 AM CDT [facility] Java [employer] Architect ID [id number] 08/22/2025 7:38 AM CDT [facility] Blood BLOOD SPECIMEN / Unknown 08/22/2025 7:29 AM CDT 08/22/2025 7:38 AM CDT us Napoleon Sepulveda MD LAB - POINT OF CARE ORDERABLES Final Result [address] [address], [place] [phone] from Last 3 Months Insurance MEDICARE Advance Directives * Full Code (Latest Code Status on File) Date Activated Date Inactivated Comments 08/22/2025 8:07 AM 08/23/2025 4:53 PM 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
--- NOTE | 2025-09-24 04:00 | PC.NURSE ---
Pt resting, ice in place to scalp hematoma, lights dimmed, awaiting CT results.
--- NOTE | 2025-09-24 04:46 | PC.NURSE ---
ERP in to discuss CT scan findings and recommendation for transfer to [facility]. Pt unsure if he wants transfer at this time.
--- NOTE | 2025-09-24 04:56 | ECG_ITS ---
Test Date: 2025-09-24 05:16:00 Measurements Intervals [place] Rate: 89 P: 0 IA: 0 QRS: -59 QRSD: 112 T: 56 QT: 382 QTc: 465 Interpretive Statements ATRIAL FIBRILLATION LEFT ANTERIOR FASCICULAR BLOCK [QRS AXIS <= -45, QR IN I, RS IN II] POSSIBLE ANTERIOR MYOCARDIAL INFARCTION , OF INDETERMINATE AGE [30 ms Q WAVE IN V3/V4, OR R < 0.2 mV IN V4] Compared to ECG 08/01/2025 09:49:47 Left anterior fascicular block now present Right-axis deviation no longer present Myocardial infarct finding still present Electronically Signed On 09-24-2025 06:41:20 FASHION SHOW DIRECTOR by Augustine Flores M.D.
[2025-09-24 05:08] VITALS: BP 150/93; PULSE 92; RESP 20; TEMP 36.7; O2SAT 95
--- NOTE | 2025-09-24 05:15 | PC.NURSE ---
Pt agreeable to transfer to [facility], paperwork signed for transfer.
[2025-09-24 05:24] LABS: Hematocrit 39.5 % (37.0-46.0); Hemoglobin 12.9 g/dL (12.4-15.3); Immature Granulocyte Percent A 0.6 % (0.0-0.0); Lymphocytes Absolute Auto 0.91 K/mm3 (1.10-4.50); Mean Corpuscular HGB Conc 32.7 g/dL (32-36); Mean Corpuscular Hemoglobin 33.1 pg (27.0-31.0); Mean Corpuscular Volume 101.3 fL (78.0-102.0); Nucleated Red Blood Cells Absolute Auto 0.00 K/mm3 (0.00-0.00); Nucleated Red Blood Cells Perc 0.0 % (0-0.0); Platelet Count Result 153 K/mm3 (150-420); Red Blood Count 3.90 M/mm3 (4.70-6.10); White Blood Count 6.6 K/mm3 (4.8-10.8)
[2025-09-24] MEDS: MORPHINE SULFATE (*CRX) 4 MG/ML INJ IV PUSH (05:32)
[2025-09-24] MEDS: SODIUM CHLORIDE 0.9% IV 1,000 ML 100 ML IV CONT (05:32)
[2025-09-24] MEDS: ONDANSETRON INJ 4 MG/2 ML VIAL IV PUSH (05:35)
[2025-09-24 05:40] LABS: Alanine Aminotransferase 25 U/L (6-50); Albumin Level 4.1 g/dL (3.5-5.1); Alkaline Phosphatase 97 U/L (38-126); Anion Gap 5 mmol/L (4-12); Aspartate Amino Transferase 35 U/L (17-59); Bilirubin,Total 2.0 mg/dL (0.2-1.3); Blood Urea Nitrogen 32 mg/dL (9-20); Calcium 9.0 mg/dL (8.4-10.2); Carbon Dioxide 27 mmol/L (22-30); Chloride 106 mmol/L (98-107); Estimated CRCL calculation 43 ml/min; Estimated Glomerular Filt Rate 47; Glucose 141 mg/dL (65-110); Osmolality Calculated 294 mOsm/kg (285-295); Potassium 4.6 mmol/L (3.4-5.0); Sodium 138 mmol/L (137-145); Total Protein 7.2 g/dL (6.3-8.2)
[2025-09-24 05:41] LABS: INR 1.0; Partial Thromboplastin Time 28.2 Sec (23.9-30.70); Prothrombin Time 11.5 Seconds (9.50-12.1)
--- NOTE | 2025-09-24 05:43 | PC.NURSE ---
Pts daughter Margarita called back and wanted to speak w/ pt. Transferred call to pts room.
[2025-09-24 05:49] VITALS: BP 130/75; PULSE 85; RESP 20; TEMP 36.6; O2SAT 95
[2025-09-24 06:05] VITALS: BP 130/74; PULSE 84; RESP 18; TEMP 36.7; O2SAT 95
== END 2025-09-24 06:05 | disposition short-term general hospital (02) ==
PROVIDERS: Emergency Provider Emergency Medicine; PCP Family Medicine
DX: S22.41XA Multiple fractures of ribs, right side, initial encounter for closed fracture (principal); S01.01XA Laceration without foreign body of scalp, initial encounter; S27.329A Contusion of lung, unspecified, initial encounter; J94.2 Hemothorax; I25.10 Atherosclerotic heart disease of native coronary artery without angina pectoris; E03.9 Hypothyroidism, unspecified; I48.91 Unspecified atrial fibrillation; I25.2 Old myocardial infarction; E78.5 Hyperlipidemia, unspecified; I10 Essential (primary) hypertension; W18.30XA Fall on same level, unspecified, initial encounter; Z79.01 Long term (current) use of anticoagulants
CPT/HCPCS: 36415; 70450; 71250; 72125; 80053; 85025; 85610; 85730; 93005; 96361; 96374; 96375; 99285; A9270; J2270; J2405; J7030

== ENCOUNTER 2025-10-08 09:44 | Outpatient (CLI) | payer MEDICARE, SELFPAY ==
--- NOTE | ~2025-10-08 | DEXA_ITS ---
Bone Density Report Name: TERRI SALDIVAR Age: 70 Sex: Male Ethnicity: White Date of : 1955 Indication: hyperparathyroidism; prior fracture; Referring Provider: Murtaza, Dana Gonzalez Study: Bone densitometry was performed. Exam Date: October 08, 2025 Accession number: [id number] Bone Density: Region BMD T-score Z-score Classification AP Spine(L1, L2, L4) 1.414 3.0 3.9 Normal Femoral Neck (Left) 0.903 -0.2 1.0 Normal Total Hip (Left) 1.019 -0.1 0.6 Normal Femoral Neck (Right) 0.860 -0.5 0.7 Normal Total Hip (Right) 0.986 -0.3 0.4 Normal Femoral Neck Mean 0.881 -0.4 0.8 Normal Total Hip Mean 1.003 -0.2 0.5 Normal World Health Organization criteria for BMD impression classify patients as: Normal (T-score at or above -1.0), Osteopenia (T-score between -1.0 and -2.5), or Osteoporosis (T-score at or below -2.5). 10-year Fracture Risk: FRAX not reported because: All T-scores for Spine Total, Hip Total, Femoral Neck at or above -1.0 Clinical Information Provided by Patient: Has had a low trauma fracture Has used the following medications: multi Has the following medical conditions: Hyperparathyroidism Patient maximum height was 70. No regular weight bearing exercise Impression: The patient has normal bone mass. The patient has risk factors, including: previous fracture. Discussion: BONE DENSITY IS ABOVE THE MINIMUM DESIRABLE LEVEL AT ALL SKELETAL SITES TESTED. This patient?s bone mineral density is above the minimum desirable level (T-score -1.0 or better) at all sites measured. The patient should follow a healthful lifestyle (good nutrition with adequate calcium and vitamin D, and appropriate weight-bearing exercise). Follow-Up: Consider repeating this study in 5 years or sooner if there is some new clinical indication. Reported by: LINDSAY on 10/08/2025 10:07:00 AM. Reviewed, dictated and finalized at location A.
== END 2025-10-08 09:45 | disposition home or self-care (01) ==
PROVIDERS: PCP Family Medicine; Visit Provider Nurse Practitioner Family
DX: Z13.820 Encounter for screening for osteoporosis (principal)
CPT/HCPCS: 77080